=== PATIENT | female | born 1985 | race Two or more races ===

== ENCOUNTER → 2020-02-26 | Emergency (ER) | payer MEDICAID ==
[~2020-02-26] VITALS: Ht 162.6 cm; Wt 72.6 kg
[~2020-02-26] MED LIST: PRENCAP15
[2020-02-26 06:30] LABS: Basophils # (auto) 0 10 ^3/uL (0-0.2); Eosinophils # (auto) 0 10 ^3/uL (0-0.8); Hemoglobin 10.4 g/dL (12.2-16.2); Lymphocytes # (auto) 2.1 10 ^3/uL (0.4-5.4); Nucleated Red Blood Cells % 0.1 %; White Blood Cell 5.9 10^3/uL (4.4-10.8)
[2020-02-26 06:32] LABS: Basophils % (auto) 0.5 % (0.0-2.0); Eosinophils % (auto) 0.4 % (0.0-7.0); Hematocrit 32.9 % (36.0-46.0); Mean Corpuscular Hemoglobin 22.4 pg (28.0-32.0); Mean Corpuscular Hgb Conc. 31.7 g/dL (32.0-36.0); Mean Corpuscular Volume 70.8 fL (80.0-100.0); Monocytes # (auto) 0.3 10 ^3/uL (0-1.3); Monocytes % (auto) 5.9 % (0.0-12.0); Neutrophils # (auto) 3.4 10 ^3/uL (1.6-8.6); Neutrophils % (auto) 57.2 % (37.0-80.0); Platelet Count (auto) 241 10^3/uL (140-450); Red Blood Cells 4.64 10^6/uL (4.0-5.20); Red Cell Distribution Width 18.2 % (11.8-14.3)
[2020-02-26 06:47] LABS: Alanine Aminotransferase 13 U/L (13-56); Albumin 3.4 g/dL (3.4-5.0); Anion Gap 6 (5-15); Blood Urea Nitrogen 8 mg/dL (7-18); Calcium 8.5 mg/dL (8.5-10.1); Carbon Dioxide 23 mmol/L (21-32); Chloride 108 mmol/L (98-107); Glucose 106 mg/dL (74-106); Potassium 3.6 mmol/L (3.5-5.1); Sodium 137 mmol/L (136-145)
[2020-02-26 06:52] LABS: Alkaline Phosphatase 62 U/L (45-117); Aspartate Aminotransferase 8 U/L (15-37); Bilirubin, Total 0.3 mg/dL (0.2-1.0); GFR African American 116 mL/min; GFR Non-African American 96 mL/min; Total Protein 8.1 g/dL (6.4-8.2)
[2020-02-26 06:57] LABS: INR 1.02 (0.9-1.15); Partial Thromboplastin Time 27.5 sec (23.64-32.05)
[2020-02-26 10:55] VITALS: BP 127/66
== END | disposition home or self-care (01) ==
LOC: ER 05:45
DX: O26.891 Other specified pregnancy related conditions, first trimester (principal); R07.89 Other chest pain; K29.70 Gastritis, unspecified, without bleeding; Z3A.01 Less than 8 weeks gestation of pregnancy; Z87.442 Personal history of urinary calculi
CPT/HCPCS: 36415; 71045; 76801; 76817; 80053; 81025; 83880; 84484; 84702; 85025; 85610; 85730; 93005

== ENCOUNTER 2021-09-22 01:45 | Emergency (ER) | payer MEDICAID ==
[~2021-09-22] VITALS: Ht 167.6 cm; Wt 69.9 kg
[2021-09-22 01:48] VITALS: BP 164/90
== END 2021-09-22 03:31 | disposition left against medical advice (07) ==
LOC: ER 01:45 → EDBD 01:45 → ER 03:31
DX: M54.50 Low back pain, unspecified (principal); Z53.21 Procedure and treatment not carried out due to patient leaving prior to being seen by health care provider

== ENCOUNTER → 2022-10-02 | Emergency (ER) | payer MEDICAID ==
[~2022-10-02] VITALS: Ht 165.1 cm; Wt 68.0 kg
[~2022-10-02] MED LIST changes: +ACE3T PO; +CYCL-837 PO; +KETOROLAC TROMETH 60MG/2ML VIAL IM ONE; +METHOCARBAMOL 500 MG TAB PO ONE
[2022-10-02 01:33] VITALS: BP 149/77
== END | disposition home or self-care (01) ==
LOC: EDUNIT# 00:50 → EDBD 01:02 → ER 01:05
DX: M54.42 Lumbago with sciatica, left side (principal); M54.41 Lumbago with sciatica, right side; I10 Essential (primary) hypertension; Z87.442 Personal history of urinary calculi
CPT/HCPCS: 96372; 99283; J1885

== ENCOUNTER 2025-05-07 06:42 | Emergency (ER) | payer MEDICAID ==
[~2025-05-07] VITALS: Ht 160 cm; Wt 63.0 kg
[~2025-05-07 06:42] MED LIST changes: -KETOROLAC TROMETH 60MG/2ML VIAL IM ONE; -METHOCARBAMOL 500 MG TAB PO ONE
--- NOTE | 2025-05-07 06:59 | ED.PDOC ---
Musculoskeletal HPI Comments THIS IS A 40 YEAR OLD FEMALE PRESENTING TO THE ED WITH CHIEF COMPLAINT OF ARM INJURY S/P FALL. PATIENT REPORTS THAT SHE HAD ACCIDENTALLY TRIPPED OVER HER DAUGHTER'S SCOOTER LAST NIGHT, CAUSING HER TO FALL ONTO HER LEFT SIDE. PATIENT RELAYS THAT SHE HAS NOW BEEN EXPERIENCING LEFT SHOULDER AND ARM PAIN WITH ASSOCIATED SWELLING AND BRUISING. PATIENT STATES THAT SHE IS UNABLE TO MOVE HER ARM DUE TO THE PAIN. PATIENT DENIES ANY NUMBNESS, WEAKNESS, TINGLING, HEAD INJURY, OR BACK INJURY. Time Seen by MD: 06:56 Primary Care Provider: MICHEAL Bejarano Notes: Nurses Notes, Medications, Allergies Allergies: Coded Allergies: NO KNOWN ALLERGIES (Unverified , 07/10/10) Home Meds Active Scripts Hydrocodone-Acetaminophen (Hydrocodone Bitartrate/AC 5-325 mg) 1 Tab Tab, 1 TAB PO TID, #12 TAB Prov:UNA MARTE 05/07/25 Cyclobenzaprine Hcl (Cyclobenzaprine Hcl) 5 Mg Tab, 1 TAB PO QPM PRN, #14 TAB 0 Refills Prov:DARRYL RICO 10/02/22 Acetaminophen W/ Codeine (Tylenol W/Cod #3) 1 Tab Tb, 1 TAB PO QIDP, #10 TAB 0 Refills Prov:DARRYL RICO 10/02/22 Reported Medications Multivit-Min W/Fe-Fa (Mynatal) Cap 07/10/10 Information Source: Patient Mode of Arrival: Ambulatory Location: Left Extremity Location: Arm, Shoulder Timing: Days Prehospital treatment: None Severity: Severe Able to Move Extremity: No Bear Weight: Limited Pain: Moderate Mechanism: Blunt Trauma Circumstances: Fall Onset of Symptoms: After Trauma Symptoms: Swelling, Pain DVT Risk Factors: NONE Last Tetanus: UTD Associated signs and symptoms: Shoulder pain, Arm pain Past Medical History PAST MEDICAL HISTORY: Anxiety, Kidney Stones, UTI'S Surgical History (Other): RIGHT HIP REPLACEMENT 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: No 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 Family History Family History: Unknown Social History Smoker: Non-Smoker Alcohol: Rarely Drugs: Denies Drug Use Lives In: Home Constitutional: reports: others (ANXIOUS ); denies: chills, diaphoresis, fatigue, fever, malaise, sweats, weakness EENTM: denies: blurred vision, double vision, ear bleeding, ear discharge, ear drainage, ear pain, ear ringing, eye pain, eye redness, hearing loss, mouth pain, mouth swelling, nasal discharge, nose bleeding, nose congestion, nose pain, photophobia, tearing, throat pain, throat swelling, voice changes, others Respiratory: denies: cough, hemoptysis, orthopnea, SOB at rest, shortness of breath, SOB with excertion, stridor, wheezing, others Cardiovascular: denies: chest pain, dizzy spells, diaphoresis, Dyspnea on exertion, edema, irregular heart beat, left arm pain, lightheadedness, palpitations, PND, syncope, others Gastrointestinal: denies: abdomen distended, abdominal pain, blood streaked bowels, constipated, diarrhea, dysphagia, difficulty swallowing, hematemesis, melena, nausea, poor appetite, poor fluid intake, rectal bleeding, rectal pain, vomiting, others Genitourinary: denies: abnormal vagina bleeding, burning, dyspareunia, dysuria, flank pain, frequency, hematuria, incontinence, pain, , vagina d ischarge, urgency, others Neurological: denies: dizziness, fainting, headache, left sided numbness, left sided weakness, numbness, paresthesia, pre-existing deficit, right sided numbness, right sided weakness, seizure, speech problems, tingling, tremors, weakness, others Musculoskeletal: reports: joint pain, joint swelling, others (LEFT SHOULDER AND UPPER ARM PAIN); denies: back pain, gout, muscle pain, muscle stiffness, neck pain Integumetry: denies: bruises, change in color, change in hair/nails, dryness, laceration, lesions, lumps, rash, wounds, others Allergic/Immunocompromised: denies: Difficulty Healing, Frequent Infections, Hives, Itching, others Hematologic/Lymphatic: denies: anemia, blood clots, easy bleeding, easy bruising, swollen glands, others Endocrine: denies: excessive hunger, excessive sweating, excessive thirst, excessive urination, flushing, intolerance to cold, intolerance to heat, unexplained weight gain, unexplained weight loss, others Psychiatric: denies: anxiety, bipolar disorder, depression, hopeless, panic disorder, schizophrenia, sleepless, suicidal, others All Other Systems: Reviewed and Negative Physical Exam General Appearance: Mild Distress, Other (ANXIOUS ) HEENT: Normal ENT Inspection, PERRL/EOMI, Pharynx Normal, TMs Normal Neck: Full Range of Motion, Non-Tender, Normal, Normal Inspection Respiratory: Chest Non-Tender, Lungs Clear, No Accessory Muscle Use, No Respiratory Distress, Normal Breath Sounds Cardiovascular: No Edema, No JVD, No Murmur, No Gallop, Normal Peripheral Pulses, Regular Rate/Rhythm Breast Exam: Deferred Gastrointestinal: No Organomegaly, Non Tender, No Pulsatile Mass, Normal Bowel Sounds, Soft Genitalia: Deferred Pelvic: Deferred Rectal: Deferred Extremities: Decreased range of motion, No pedal edema, Swelling (BONY TENDERNESS AND SWELLING ON LEFT UPPER ARM, NO DEFORMITY AND OPEN WOUND. ), Tender (ON LEFT ELBOW, NO BONY TENDERNESS, SWELLING AND DEFORMITY. ) Neurologic: Alert, juice standardizer II-XII nml as Tested, No Motor Deficits, Normal Affect, Normal Mood, No Sensory Deficits Cerebellar Function: Normal Reflexes: Normal Skin: Dry, Normal Color, Warm Peripheral Pulses: 2+ carotid (R), 2+ carotid (L), 2+ Radial (R), 2+ Radial (L) Lymphatic: No Adenopathy Was a procedure done? Was a procedure done?: Yes Sedation Sedation?: No Reduction Indication: Fracture Informed consent obtained: Yes Risks/benefits/alt described: Yes Notes SPLINT APPLIED TO LEFT HUMERAL HEAD. PATIENT TOLERATED PROCEDURE WELL. Differential Diagnosis EXT Differential Diagnosis: Fracture, Sprain, Dislocation, Contusion, Strain X-Ray, Labs, Meds, VS Vital Signs Date Time Temp Pulse Resp B/P (MAP) Pulse Ox O2 Delivery O2 Flow Rate FiO2 05/07/25 07:38 71 19 96 Room Air* 0 21 05/07/25 07:21 98.4 81 18 125/92 (103) 99 98.4 05/07/25 07:21 81 18 97 Room Air 05/07/25 06:42 97.8 79 16 112/77 (89) 100 97.8 Current Medications Medications (Trade) Dose Ordered Sig/Ese Route Start Time Stop Time Status Last Admin Acetaminophen/ Hydrocodone Bitart (Jordan 5/325MG Tab) 1 tab ONCE ONCE PO 05/07/25 07:00 05/07/25 07:01 DC 05/07/25 07:[address] [address] Ph: [phone] DIAGNOSTIC IMAGING Diagnostic Imaging Report : [id number] Signed PATIENT: VOLODYMYR HAILE ACCT: [id number] UNIT: [id number] : 1985 LOC: ER ROOM / BED: / AGE / SEX: 40 / F ADM STATUS: REG ER SERVICE ORDERING PHYSICIAN: UNA MARTE PROCEDURE(s): LSHD2 - L SHOULDER 2+ VIEW XRAY REASON: fall ORDER NUMBER(s): [id number], ACCESSION NUMBER(s): [id number] EXAM: XY L SHOULDER 2+ VIEW XRAY HISTORY: fall COMPARISON: None TECHNIQUE: 2 views of the left shoulder were performed. FINDINGS: Comminuted humeral fracture. No dislocation. Soft tissue swelling shoulder. IMPRESSION: 1. Comminuted humeral fracture. Soft tissue swelling in the shoulder. ATED BY: FLAQUITA GREY MD DICTATED DATE/TIME: 05/07/25733 SIGNED BY: FLAQUITA GREY MD SIGNED DATE/TIME: 05/07/25733 CC: X-Ray, Labs, Meds, VS Comment EXTERNAL MEDICAL RECORDS REVIEWED: [NONE] INDEPENDENT HISTORIANS: [NONE] SOCIAL DETERMINANTS OF HEALTH: [NONE] LABS ORDERED: NONE REVIEWED AND INTERPRETED RESULTS: LEFT SHOULDER XR, LEFT ELBOW XR IMAGING ORDERED: LEFT SHOULDER XR, LEFT ELBOW XR TREATMENTS ORDERED: NORCO 5/325MG PO AND SPLINT APPLIED TO LEFT UPPER EXTREMITY. PROCEDURES PERFORMED: NONE CRITICAL CARE TIME: NONE I HAVE DISCUSSED THE PATIENT WITH THE ATTENDING PHYSICIAN DR. MEDINA AND HE AGREES WITH THE PATIENT'S PLAN OF CARE AND DISPOSITION. BASED ON HISTORY OF PRESENT ILLNESS, AND PHYSICAL EXAM, PATIENT WILL BE DISCHARGED HOME. DISCUSSED PLAN FOR DISCHARGE HOME WITH RX NORCO. MEDICATION WARNINGS GIVEN. SHARED DECISION MAKING: DISCUSSED WITH PATIENT THAT THEIR WORKUP WAS NORMAL. PATIENT INSTRUCTED TO FOLLOW UP WITH PRIMARY CARE PROVIDER/ORTHOPEDIST IN 1-2 DAYS FOR RE-EVALUATION OF SYMPTOMS. PATIENT VERBALIZES UNDERSTANDING TO RETURN TO ED FOR NEW OR WORSENING SYMPTOMS OR IF FOLLOW UP WITH PCP CANNOT BE OBTAINED. PATIENT FEELS COMFORTABLE GOING HOME AT THIS TIME. ALL QUESTIONS ADDRESSED AT TIME OF DISCHARGE. Images Reviewed?: Images reviewed and evaluated by me Time of 1ST Reevaluation: 07:42 Reevaluation 1ST: Improved Patient Education/Counseling: Diagnosis, Treatment, Need For Follow Up Family Education/Counseling: Diagnosis, Treatment, Need For Follow Up, No Family Present Medical Screening: No EMC Exist At This Time Departure 1 Departure Time of Disposition: 08:00 Impression: Primary Impression: Comminuted fracture of left humerus Qualified Codes: S42.355A - Nondisplaced comminuted fracture of shaft of humerus, left arm, initial encounter for closed fracture Disposition: HOME / SELF CARE / HOMELESS Condition: Stable Additional Instructions: FOLLOW-UP WITH PCP IN 1 TO 2 DAYS. TAKE MEDICATIONS PRESCRIBED. RETURN TO ED FOR ANY NEW OR WORSENING SYMPTOMS. e-Prescriptions Hydrocodone-Acetaminophen (Hydrocodone Bitartrate/AC 5-325 mg) 1 Tab Tab 1 TAB PO TID, #12 TAB Prov: UNA MARTE 05/07/25 Discharged With: Self, Spouse Critical Care Note Critical Care Time?: No Stability Stability form required: No Heart Score Heart Score: Heart Score Response (Comments) Value History N/A 0 EKG N/A 0 Age N/A 0 Risk Factors N/A 0 Troponin N/A 0 Total 0 I personally scribed for UNA MARTE ([email or web address]) on 05/07/25 at 06:59. Electronically submitted by Juan Knox ([email or web address]). I personally scribed for UNA MARTE ([email or web address]) on 05/07/25 at 07:15. Electronically submitted by Juan Knox ([email or web address]). I personally scribed for UNA MARTE ([email or web address]) on 05/07/25 at 07:36. Electronically submitted by Juan Knox ([email or web address]). I personally scribed for UNA MARTE ([email or web address]) on 05/07/25 at 07:39. Electronically submitted by Juan Knox ([email or web address]). I personally scribed for UNA MARTE ([email or web address]) on 05/07/25 at 07:41. Electronically submitted by Juan Knox ([email or web address]). UNA MARTE May 07, 2025 06:59
[2025-05-07] MEDS: HYDROcodone-ACET 5/325MG TAB PO ONE (07:11)
[2025-05-07 07:21] VITALS: BP 125/92; TEMP 98.4
--- NOTE | 2025-05-07 07:36 | DVH ---
EXAM: XY L SHOULDER 2+ VIEW XRAY HISTORY: fall COMPARISON: None TECHNIQUE: 2 views of the left shoulder were performed. FINDINGS: Comminuted humeral fracture. No dislocation. Soft tissue swelling shoulder. IMPRESSION: 1. Comminuted humeral fracture. Soft tissue swelling in the shoulder.
[2025-05-07 07:38] VITALS: PULSE 71; RESP 19; O2SAT 96
[2025-05-07] MEDS ORDERED: HYDR-4902 PO (07:39)
--- NOTE | 2025-05-07 07:41 | DVH ---
CLINICAL INDICATION: fall trauma, pain TECHNIQUE: XY L ELBOW 3 VIEW XRAY Comparison: None FINDINGS/IMPRESSION: : There is no evidence of acute fracture or dislocation. Small joint effusion. Examination is slightly limited secondary to suboptimal lateral view.
== END 2025-05-07 07:47 | disposition home or self-care (01) ==
LOC: ER 06:44
DX: S42.352A Displaced comminuted fracture of shaft of humerus, left arm, initial encounter for closed fracture (principal); F41.9 Anxiety disorder, unspecified; F10.90 Alcohol use, unspecified, uncomplicated; Z87.442 Personal history of urinary calculi; Z79.899 Other long term (current) drug therapy; Z87.440 Personal history of urinary (tract) infections; W01.0XXA Fall on same level from slipping, tripping and stumbling without subsequent striking against object, initial encounter; Y93.89 Activity, other specified; Y92.89 Other specified places as the place of occurrence of the external cause; Y99.8 Other external cause status; Y90.9 Presence of alcohol in blood, level not specified
CPT/HCPCS: 29105; 73030; 73080

== ENCOUNTER 2025-05-15 07:02 | Emergency (ER) | payer MEDICAID ==
[~2025-05-15] VITALS: Ht 160 cm; Wt 59.0 kg
[~2025-05-15 07:02] MED LIST changes: +HYDR-4902 PO
[2025-05-15] MEDS ORDERED: HYDR-4798 PO (07:25)
[2025-05-15] MEDS ORDERED: IBUP-1456 PO (07:25)
--- NOTE | 2025-05-15 07:25 | ED.PDOC ---
History of Present Illness HPI Comments A 40 YEAR OLD FEMALE PRESENTS TO THE ED WITH COMPLAINT OF LEFT SHOULDER PAIN AND REQUEST FOR PAIN MANAGEMENT. PATIENT STATES SHE FELL 1 WEEK AGO AND CAME TO THIS ED FOR THE INJURY WHERE AN X RAY WAS DONE WHICH REVEALED A COMMINUTED FRACTURE OF HER LEFT HUMERUS. PATIENT REPORTS SHE WAS PRESCRIBED NORCO 5/325MG, BUT NOTES THIS HAS NOT HELPED HER PAIN. PATIENT IS REQUESTING A NEW PAIN MEDICINE TO MANAGE HER PAIN. PATIENT DENIES FEVER, CHILLS, SHORTNESS OF BREATH, CHEST PAIN, ABDOMINAL PAIN, NAUSEA, VOMITING, HEADACHE, OR OTHER COMPLAINTS. NO OTHER SYMPTOMS OR MODIFYING FACTORS AT THIS TIME. PATIENT IS ALERT, ORIENTED X 4, AND HAS STEADY GAIT. Time Seen by MD: 07:04 Primary Care Provider: MICHEAL Bejarano Notes: Nurses Notes, Medications, Allergies Allergies: Coded Allergies: NO KNOWN ALLERGIES (Unverified , 07/10/10) Home Meds Active Scripts Hydrocodone-Acetaminophen (Hydrocodone Bitartrate/AC 10-325 mg) 1 Tab Tab, 1 TAB PO BID, #10 TAB Prov:UNA MARTE 05/15/25 Ibuprofen (Ibuprofen) 800 Mg Tab, 1 TAB PO TID, #20 TAB Prov:UNA MARTE 05/15/25 Hydrocodone-Acetaminophen (Hydrocodone Bitartrate/AC 5-325 mg) 1 Tab Tab, 1 TAB PO TID, #12 TAB Prov:UNA MARTE 05/07/25 Cyclobenzaprine Hcl (Cyclobenzaprine Hcl) 5 Mg Tab, 1 TAB PO QPM PRN, #14 TAB 0 Refills Prov:DARRYL RICO 10/02/22 Acetaminophen W/ Codeine (Tylenol W/Cod #3) 1 Tab Tb, 1 TAB PO QIDP, #10 TAB 0 Refills Prov:DARRYL RICO 10/02/22 Reported Medications Multivit-Min W/Fe-Fa (Mynatal) Cap 07/10/10 Information Source: Patient Mode of Arrival: Ambulatory Severity: Moderate Timing: Days Duration: Since onset, Other Prehospital treatment: None Medication Refill: For: Pain (LEFT SHOULDER ), For: Other (LEFT SHOULDER AND UPPER ARM PAIN) Past Medical History PAST MEDICAL HISTORY: Anxiety, Kidney Stones, UTI'S Surgical History: Denies all surgeries CUSTOMER CARE AGENT History: No Pertinent CUSTOMER CARE AGENT History Family History Family History: Reviewed,noncontributory to illness Social History Smoker: Non-Smoker Alcohol: Rarely Drugs: Denies Drug Use Lives In: Home Constitutional: denies: chills, diaphoresis, fatigue, fever, malaise, sweats, weakness, others EENTM: denies: blurred vision, double vision, ear bleeding, ear discharge, ear drainage, ear pain, ear ringing, eye pain, eye redness, hearing loss, mouth pain, mouth swelling, nasal discharge, nose bleeding, nose congestion, nose pain, photophobia, tearing, throat pain, throat swelling, voice changes, others Respiratory: denies: cough, hemoptysis, orthopnea, SOB at rest, shortness of breath, SOB with excertion, stridor, wheezing, others Cardiovascular: denies: chest pain, dizzy spells, diaphoresis, Dyspnea on exertion, edema, irregular heart beat, left arm pain, lightheadedness, palpitations, PND, syncope, others Gastrointestinal: denies: abdomen distended, abdominal pain, blood streaked bowels, constipated, diarrhea, dysphagia, difficulty swallowing, hematemesis, melena, nausea, poor appetite, poor fluid intake, rectal bleeding, rectal pain, vomiting, others Genitourinary: denies: abnormal vagina bleeding, burning, dyspareunia, dysuria, flank pain, frequency, hematuria, incontinence, pain, , vagina d ischarge, urgency, others Neurological: denies: dizziness, fainting, headache, left sided numbness, left sided weakness, numbness, paresthesia, pre-existing deficit, right sided numbness, right sided weakness, seizure, speech problems, tingling, tremors, weakness, others Musculoskeletal: reports: joint pain, joint swelling, others (LEFT SHOULDER AND UPPER ARM PAIN); denies: back pain, gout, muscle pain, muscle stiffness, neck pain Integumetry: denies: bruises, change in color, change in hair/nails, dryness, laceration, lesions, lumps, rash, wounds, others Allergic/Immunocompromised: denies: Difficulty Healing, Frequent Infections, Hives, Itching, others Hematologic/Lymphatic: denies: anemia, blood clots, easy bleeding, easy bruising, swollen glands, others Endocrine: denies: excessive hunger, excessive sweating, excessive thirst, excessive urination, flushing, intolerance to cold, intolerance to heat, unexplained weight gain, unexplained weight loss, others Psychiatric: denies: anxiety, bipolar disorder, depression, hopeless, panic disorder, schizophrenia, sleepless, suicidal, others All Other Systems: Reviewed and Negative Physical Exam General Appearance: No Apparent Distress, Normal HEENT: Normal ENT Inspection, PERRL/EOMI, Pharynx Normal, TMs Normal Neck: Full Range of Motion, Non-Tender, Normal, Normal Inspection Respiratory: Chest Non-Tender, Lungs Clear, No Accessory Muscle Use, No Respiratory Distress, Normal Breath Sounds Cardiovascular: No Edema, No JVD, No Murmur, No Gallop, Normal Peripheral Pulses, Regular Rate/Rhythm Breast Exam: Deferred Gastrointestinal: No Organomegaly, Non Tender, No Pulsatile Mass, Normal Bowel Sounds, Soft Genitalia: Deferred Pelvic: Deferred Rectal: Deferred Extremities: Decreased range of motion, No calf tenderness, Normal capillary refill, No pedal edema, Tender (AND MILD SWELLING ON LEFT SHOULDER, NO DEFORMITY. ) Musculoskeletal : Apperance: Normal Neurologic: Alert, flatlock sewing machine operator II-XII nml as Tested, No Motor Deficits, Normal Affect, Normal Mood, No Sensory Deficits Cerebellar Function: Normal Reflexes: Normal Skin: Dry, Normal Color, Warm Peripheral Pulses: 2+ carotid (R), 2+ carotid (L), 2+ Radial (R), 2+ Radial (L) Lymphatic: No Adenopathy Was a procedure done? Was a procedure done?: No Differential Dx Considerations may include: HISTORY OF COMMINUTED FRACTURE OF LEFT HUMERUS, PAIN MANAGEMENT X-Ray, Labs, Meds, VS Comment EXTERNAL MEDICAL RECORDS REVIEWED: [NONE] INDEPENDENT HISTORIANS: [NONE] SOCIAL DETERMINANTS OF HEALTH: [NONE] LABS ORDERED: NONE REVIEWED AND INTERPRETED RESULTS: NONE IMAGING ORDERED: NONE TREATMENTS ORDERED: NONE PROCEDURES PERFORMED: NONE CRITICAL CARE TIME: NONE I HAVE DISCUSSED THE PATIENT WITH THE ATTENDING PHYSICIAN DR. ISAACS AND HE AGREES WITH THE PATIENT'S PLAN OF CARE AND DISPOSITION. BASED ON HISTORY OF PRESENT ILLNESS, AND PHYSICAL EXAM, PATIENT WILL BE DISCHARGED HOME. DISCUSSED PLAN FOR DISCHARGE HOME WITH RX [NORCO 10/325 MG AND IBUPROFEN 800 MG]. MEDICATION WARNINGS GIVEN. SHARED DECISION MAKING: PATIENT INSTRUCTED TO FOLLOW UP WITH PRIMARY CARE PROVIDER IN 1-2 DAYS FOR RE-EVALUATION OF SYMPTOMS. PATIENT VERBALIZES UNDERSTANDING TO RETURN TO ED FOR NEW OR WORSENING SYMPTOMS OR IF FOLLOW UP WITH PCP CANNOT BE OBTAINED. PATIENT FEELS COMFORTABLE GOING HOME AT THIS TIME. ALL QUESTIONS ADDRESSED AT TIME OF DISCHARGE. Time of 1ST Reevaluation: 08:00 Reevaluation 1ST: Improved Patient Education/Counseling: Diagnosis, Treatment, Need For Follow Up Family Education/Counseling: Diagnosis, Treatment, Need For Follow Up Medical Screening: No EMC Exist At This Time Departure 1 Departure Time of Disposition: 08:00 Impression: Primary Impression: Comminuted fracture of left humerus Qualified Codes: S42.355A - Nondisplaced comminuted fracture of shaft of humerus, left arm, initial encounter for closed fracture Additional Impression: Pain management Disposition: 01 HOME / SELF CARE / HOMELESS Condition: Stable Additional Instructions: FOLLOW-UP WITH PCP IN 1 TO 2 DAYS FOR REFERRAL TO [facility]. TAKE MEDICATIONS PRESCRIBED. RETURN TO ED FOR ANY NEW OR WORSENING SYMPTOMS. e-Prescriptions Hydrocodone-Acetaminophen (Hydrocodone Bitartrate/AC 10-325 mg) 1 Tab Tab 1 TAB PO BID, #10 TAB Prov: UNA MARTE 05/15/25 Ibuprofen (Ibuprofen) 800 Mg Tab 1 TAB PO TID, #20 TAB Prov: UNA MARTE 05/15/25 Discharged With: Self Critical Care Note Critical Care Time?: No Stability Stability form required: No I personally scribed for UNA MARTE ([email or web address]) on 05/15/25 at 07:25. Elec tronically submitted by Pierre Matos ([email or web address]). UNA MARTE May 15, 2025 07:25
[2025-05-15 07:40] VITALS: BP 113/62; PULSE 69; RESP 16; TEMP 98.2; O2SAT 97
== END 2025-05-15 08:02 | disposition home or self-care (01) ==
LOC: ER 07:02
DX: S42.355D Nondisplaced comminuted fracture of shaft of humerus, left arm, subsequent encounter for fracture with routine healing (principal); Z01.89 Encounter for other specified special examinations; Z79.899 Other long term (current) drug therapy; W19.XXXD Unspecified fall, subsequent encounter

== ENCOUNTER 2025-09-04 01:11 | Inpatient (IN) | payer MEDICAID ==
[~2025-09-04] VITALS: Ht 160 cm; Wt 63.9 kg
[2025-09-04] VITALS (80 sets, daily range): BP systolic 51–135; BP diastolic 22–75; PULSE 75–117; RESP 18–40; TEMP 97–100.4; O2SAT 95–100
[~2025-09-04 01:11] MED LIST changes: +HYDR-4798 PO; +IBUP-1456 PO
[2025-09-04] MEDS: NOREPINEPHRINE 8 MG/250ML KIT 250 ML IV SCH (01:23)
--- NOTE | 2025-09-04 01:28 | ECG ---
[facility] Test Date: 2025-09-04 Test Time: 01:21:15 Pat Name: VOLODYMYR HAILE Department: ED Room: [address] [place] [address] Gender: F Test Data Developer: ritesh : 1985 Requested By: CATHIE ROGERS Order Number: [id number] Reading MD: Bradford Baldwin Measurements Intervals [place] Rate: 91 P: 105 WA: 121 QRS: 72 QRSD: 85 T: 66 QT: 347 QTc: 427 Interpretive Statements Sinus rhythm Abnormal R-wave progression, early transition Tall T waves suggest hyperkalemia Electronically Signed On 09-04-2025 15:47:15 PST by Bradford Baldwin Please click the below link to view image of tracing.
--- NOTE | 2025-09-04 01:29 | ED.PDOC ---
History of Present Illness HPI Comments 40-year-old female who came to ER via EMS in cardiac arrest. Per EMS, received a phone call for witnessed cardiac arrest at 1238 hours. They were on scene within 5 minutes, patient was asystole, CPR initiated by family. Family states patient was anxious but was not having any complaints like chest pain or issa rtness of breath. CPR continued. Fluids given. Epinephrine x2 given. Patient became VFib, so patient was shocked once at 100 joules, Narcan given, patient became asystole again upon arrival at ER at 0108 hours. Blood sugar upon arrival was 43. ROSC obtained at 0112 hours Further history taken from family members who arrived to the emergency department. They report that for the past 5 years patient has been severely depressed. For the past month she has been staying in bed. Decreased p.o. intake. She had a fall back in April resulting in arm and hip fracture. They deny any other significant past medical history. REVIEW OF SYSTEMS: Patient unresponsive Initial EXAM: General: Patient is unresponsive. Skin: Skin is cool, pale HEENT: The head is normocephalic and atraumatic. Conjunctivae are clear without exudates or hemorrhage. Sclera is non-icteric. Pupils are fixed and dilated. Neck: The neck is supple Cardiac: No pulse palpated Respiratory: No spontaneous respiration Abdominal: Abdomen is firm, Band-Aid in place over the umbilicus, surgical scar noted over the lower abdomen and umbilicus, patient is wearing adult diaper Extremities: Upper and lower extremities are atraumatic in appearance without deformity or edema. Neurological: No Spontaneous movement. No response to pain. GCS 3. 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 Allergies: Coded Allergies: NO KNOWN ALLERGIES (Unverified , 07/10/10) Home Meds Active Scripts Hydrocodone-Acetaminophen (Hydrocodone Bitartrate/AC 10-325 mg) 1 Tab Tab, 1 TAB PO BID, #10 TAB Prov:UNA MARTE 05/15/25 Ibuprofen (Ibuprofen) 800 Mg Tab, 1 TAB PO TID, #20 TAB Prov:UNA MARTE 25 Hydrocodone-Acetaminophen (Hydrocodone Bitartrate/AC 5-325 mg) 1 Tab Tab, 1 TAB PO TID, #12 TAB Prov:UNA MARTE 05/07/25 Cyclobenzaprine Hcl (Cyclobenzaprine Hcl) 5 Mg Tab, 1 TAB PO QPM PRN, #14 TAB 0 Refills Prov:DARRYL RICO 10/02/22 Acetaminophen W/ Codeine (Tylenol W/Cod #3) 1 Tab Tb, 1 TAB PO QIDP, #10 TAB 0 Refills Prov:DARRYL RICO 10/02/22 Reported Medications Multivit-Min W/Fe-Fa (Mynatal) Cap 07/10/10 Information Source: Emergency Med Personnel Mode of Arrival: EMS Severity: Severe Timing: Minutes Past Medical History PAST MEDICAL HISTORY: Anxiety, Kidney Stones, UTI'S Surgical History: Unobtainable 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 Indication: Volume resuscitation, Inability to obtain IV Room prepared for procedure: Yes Retort Furnace Operator performed hand hygien: Yes Maximal sterile barrier precau: Mask/Eye shield, Sterile gown, Cap, Sterlie gloves, Large sterlie drape Skin Preparation: Providine iodine Skin preparation completely dr: Yes Insertion site: Left, Femoral Central line catheter type: Tunneled- not dialysis Number of lumens: 3 Central line exchanged over a: Yes Antiseptic ointment applied to: Yes Post Assessment: Chest X-Ray Informed consent obtained: No Risks/benefits/alt described: No Intubation Indication: Respiratory Insufficiency, Altered Mental Status Prep: Preoxygenation Pretreated with: Nothing Medicated with: Nothing Intubation Approach: Orotracheal Intubation size: cm (8 level 24 at the lip) Informed consent obtained: Yes Risks/benefits/alt described: Yes Differential Dx Considerations may include: Cardiac arrest, pulmonary emboli, arrhythmia, hypotension, hypoglycemia, myocardial infarction, intracranial hemorrhage, stroke, head injury, seizure, metabolic disturbance, electrolyte imbalance, infection/sepsis, substance intoxication, psychiatric cause, other systemic illness, other X-Ray, Labs, Meds, VS Vital Signs Date Time Temp Pulse Resp B/P (MAP) Pulse Ox O2 Delivery O2 Flow Rate FiO2 09/04/25 04:37 105 21 107/30 (55) 100 50 09/04/25 04:31 75 21 51/22 97 50.0 100 09/04/25 04:28 203.0 Ambu-Bag 09/04/25 04:05 103 09/04/25 02:40 94.2 94.2 09/04/25 02:11 87 09/04/25 01:23 74/19 09/04/25 01:21 91 09/04/25 01:10 75 21 97 100 Lab Test 09/04/25 04:43 09/04/25 03:40 09/04/25 03:39 09/04/25 03:14 Range/Units Troponin I High Sensitivity 8221 *H </=34 ng/L Blood Gas Specimen Type Arterial Blood Gas Sample Site Left brachial Blood Gas Patient Temperature 37.0 Arterial Blood Date Drawn [id number] Arterial Blood pH 7.347 L 7.350-7.450 Arterial Blood Partial Pressure CO2 33.8 32.0-45.0 mmHg Arterial Blood Partial Pressure O2 339.2 *H 83.0-108.0 mmHg Arterial Blood HCO3 18.1 L 21.0-28.0 mmol/L Arterial Blood Oxygen Saturation 99.3 H 94.0-98.0 % Arterial Blood Base Excess -6.8 L -2.0-3.0 mmol/L Arterial Blood Oxyhemoglobin 97.9 94.0-98.0 % Arterial Blood Carboxyhemoglobin 0.5 0.5-1.5 % Arterial Blood Methemoglobin 0.9 0.0-1.5 % Fernando Test Modified Blood Gas Total Hemoglobin 8.10 L 12.0-16.0 g/dL Blood Gas Set Respiration Rate 18.0 Blood Gas Modality Vent - ac FiO2 % 100.0 Blood Gas Tidal Volume 450.0 Blood Gas PEEP or CPAP 5.0 Blood Gas Critical Value Read Back Yes Blood Gas Notified Whom giovanny Flores Blood Gas Notified Time [id number] Blood Gas Notified By Rt rafia rojas Lactic Acid Level 15.2 *H 0.4-2.0 mmol/L Urine Color Light-orange Yellow Urine Clarity Turbid H Clear Urine pH 5.5 5.0-9.0 Urine Specific [place] 1.015 1.001-1.035 Urine Protein 2+ H Negative Urine Ketones 1+ H Negative Urine Blood 3+ H Negative /uL Urine Nitrite Negative Negative Urine Bilirubin Negative Negative Urine Urobilinogen Normal Negative mg/dL Urine Leukocyte Esterase Negative Negative /uL Urine RBC 281 0 - 4 /hpf Urine Microscopic WBC 37 H 0-5 /HPF Urine Squamous Epithelial Cells Few <5 /hpf Urine Calcium Oxalate Crystals Few None Seen Urine Bacteria Few H None Seen /hpf Urine Hyaline Casts Many 0 - 2 /lpf Urine Mucus Few None Seen Urine Glucose Trace Normal mg/dL Urine Opiates Screen Neg NEGATIVE Urine Fentanyl Screen Neg NEGATIVE Urine Barbiturates Screen Neg NEGATIVE Urine Phencyclidine Screen Neg NEGATIVE Urine Amphetamines Screen Neg NEGATIVE Urine Benzodiazepines Screen Neg NEGATIVE Urine Cocaine Screen Neg NEGATIVE Urine Cannabinoids Screen Neg NEGATIVE Test 09/04/25 03:10 09/04/25 02:32 09/04/25 01:49 09/04/25 01:40 Range/Units Influenza Type A Antigen Negative Negative Influenza Type B Antigen Negative Negative SARS-CoV-2 Antigen (Rapid) Negative NEGATIVE Creatine Kinase 458 H 34-145 U/L Troponin I High Sensitivity 5664 *H 2769 *H </=34 ng/L Blood Gas Specimen Type Arterial Blood Gas Sample Site Right radial Blood Gas Patient Temperature 37.0 Arterial Blood Date Drawn [id number] Arterial Blood pH < 6.710 *L 7.350-7.450 Arterial Blood Partial Pressure CO2 38.1 32.0-45.0 mmHg Arterial Blood Partial Pressure O2 95.1 83.0-108.0 mmHg Arterial Blood Oxygen Saturation 84.0 *L 94.0-98.0 % Arterial Blood Oxyhemoglobin 81.2 L 94.0-98.0 % Arterial Blood Carboxyhemoglobin 2.0 H 0.5-1.5 % Arterial Blood Methemoglobin 1.3 0.0-1.5 % Fernando Test Modified Blood Gas Total Hemoglobin 6.50 *L 12.0-16.0 g/dL Blood Gas Set Respiration Rate 18.0 Blood Gas Modality Vent - ac FiO2 % 100.0 Blood Gas Tidal Volume 450.0 Blood Gas PEEP or CPAP 5.0 Blood Gas Comments Blood Gas Critical Value Read Back Yes Blood Gas Notified Whom pradeep Rogers md Blood Gas Notified Time [id number] Blood Gas Notified By White Blood Count 8.8 4.4-10.8 10^3/uL Red Blood Count 3.13 L 4.0-5.20 10^6/uL Hemoglobin 6.4 *L 12.2-16.2 g/dL Hematocrit 25.0 L 36.0-46.0 % Mean Corpuscular Volume 79.8 L 80.0-100.0 fL Mean Corpuscular Hemoglobin 20.4 L 28.0-32.0 pg Mean Corpuscular Hemoglobin Concent 25.5 L 32.0-36.0 g/dL Red Cell Distribution Width 19.3 H 11.8-14.3 % Platelet Count 260 140-450 10^3/uL Mean Platelet Volume 10.8 6.9-10.8 fL Neutrophils (%) (Auto) 73.3 37.0-80.0 % Lymphocytes (%) (Auto) 23.3 10.0-50.0 % Monocytes (%) (Auto) 2.8 0.0-12.0 % Eosinophils (%) (Auto) 0.1 0.0-7.0 % Basophils (%) (Auto) 0.5 0.0-2.0 % Neutrophils # (Auto) 6.4 1.6-8.6 10 ^3/uL Lymphocytes # (Auto) 2.0 0.4-5.4 10 ^3/uL Monocytes # (Auto) 0.2 0-1.3 10 ^3/uL Eosinophils # (Auto) 0 0-0.8 10 ^3/uL Basophils # (Auto) 0 0-0.2 10 ^3/uL Nucleated Red Blood Cells 0.5 % Prothrombin Time 17.4 H 9.3-11.8 sec Prothrombin Time INR 1.73 H 0.9-1.15 Sodium Level 151 H 136-145 mmol/L Potassium Level 6.3 *H 3.5-5.1 mmol/L Chloride Level 113 H 98-107 mmol/L Carbon Dioxide Level < 10 *L 20-31 mmol/L Anion Gap 28.68709 H 5-15 Blood Urea Nitrogen 29 H 9-23 mg/dL Creatinine 2.52 H 0.550-1.02 mg/dL Glomerular Filtration Rate Calc 24 >90 mL/min BUN/Creatinine Ratio 11.5 10.0-20.0 Serum Glucose 146 H 74-106 mg/dL Lactic Acid Level 21.1 *H 0.4-2.0 mmol/L Calcium Level 7.9 L 8.7-10.4 mg/dL Magnesium Level 4.1 *H 1.6-2.6 mg/dL Total Bilirubin < 0.2 L 0.2-1.0 mg/dL Aspartate Amino Transferase (AST) 2482 H 13-40 U/L Alanine Aminotransferase (ALT) 1430 H 7-40 U/L Alkaline Phosphatase 74 46-116 U/L B-Type Natriuretic Peptide 8.48 0-100 pg/mL Total Protein 4.8 L 5.7-8.2 g/dL Albumin 2.7 L 3.2-4.8 g/dL Lipase 31 12-53 U/L Thyroid Stimulating Hormone (TSH) 2.31 0.55-4.78 uIU/mL Plasma/Serum Blood Alcohol < 3.0 <10 mg/dL Current Medications Medications (Trade) Dose Ordered Sig/Ese Route Start Time Stop Time Status Last Admin Norepinephrine Bitartrate 250 ml @ 3.75 mls/hr Q24H IV 09/04/25 02:00 09/04/25 01:23 Sodium Bicarbonate 50 ml ONCE ONCE IV 09/04/25 02:00 09/04/25 02:01 DC 09/04/25 03:40 Albuterol (Ventolin Medneb) 20 mg ONCE ONCE NEB 09/04/25 02:00 09/04/25 02:01 DC 09/04/25 02:17 Sodium Bicarbonate 50 ml ONCE ONCE IV 09/04/25 02:00 09/04/25 02:01 DC 09/04/25 03:40 Sodium Bicarbonate 50 ml/ Dextrose 1,050 ml @ 100 mls/hr ONCE ONCE IV 09/04/25 02:15 09/04/25 12:44 09/04/25 03:41 Insulin Human Regular (InsuLIN R) 10 units ONCE ONCE IV 09/04/25 02:45 09/04/25 02:46 DC 09/04/25 04:35 Diagnostic Test (Pha) (Accu-Chek Comfort Curve T) 1 strip ONCE STAT 09/04/25 02:32 09/04/25 02:33 DC 09/04/25 04:35 EXAM: CT HEAD WITHOUT CONTRAST INDICATION: AMS TECHNIQUE: CT of the head without intravenous contrast. Radiation Dose Information: CT Dose: CTDI volume is 53.16 mGy. Dose-length product is 941.36 mGy*cm The dose indicators for CT are the volume Computed Tomography (CT) Dose Index (CTDIvol) and the Dose Length Product (DLP), and are measured in units of mGy and mGy-cm, respectively. These indicators are not patient dose, but values generated from the CT scanner acquisition factors. The report includes radiation exposure data for exposures received during this examination. COMPARISON: None FINDINGS: There is no evidence of acute intracranial hemorrhage, extra-axial collection, mass effect, midline shift, herniation or hydrocephalus. The ventricles, sulci and cisterns are age appropriate. The lozoya-white differentiation is intact. The visualized paranasal sinuses and mastoid air cells are clear. The surrounding soft tissues and osseous structures are unremarkable. IMPRESSION: 1. No acute intracranial abnormality. Exam: CT CT AB PEL WO CON-NO ORAL OR IV History: Abdomen distended, status post cardiac arrest Comparison Study: None TECHNIQUE: Multidetector CT of the abdomen and pelvis was performed from lung bases to pubic symphysis. Imaging was performed without IV contrast. Axial, cor onal and sagittal multiplanar reformats were obtained from the axial data set by the technologist. Radiation optimization: All CT scans at this facility use at least one of these dose optimization techniques: automated exposure control mA and/or kV adjust ment per patient size (includes targeted exams where dose is matched to clinical indication) or iterative reconstruction. Radiation Dose Information: CT Dose: CTDI volume is 8.19 mGy. Dose-length product is 480.39 mGy*cm FINDINGS: Evaluation of solid organs is limited due to lack of intravenous contrast use. Imaged portions of the lung bases demonstrate atelectatic changes in the left lung base. There is bilateral alveolar opacities in the anterior right and left upper lobes. Respiratory motion otherwise limits assessment. Enteric tube tip is seen within the stomach. Liver, spleen and adrenal glands appear unremarkable. The left kidney appears absent. Few 1 mm nonobstructing right nephroliths are noted. There is no hydronephrosis. Assessment of the pancreas is near impossible given motion. There is no evidence of bowel obstruction. There is a large amount of intracolonic stool. No evidence of free air. Urinary bladder is collapsed and presence of the Sams catheter. The uterus is retroverted. There is a 5.2 cm fat containing umbilical hernia. Right hip prosthesis resulting in beam hardening artifact. No suspicious osseous lesion. IMPRESSION: 1. Pulmonary findings may be on the basis of infectious process or contusion. Consider full assessment of the chest when patient is clinically able. 2. Limited assessment of the abdomen and pelvis without acute finding. 3. Nondiagnostic assessment of the pancreas. 4. Large amount of intracolonic stool EDURE: XY CHEST XRAY 1 VIEW DATE: 09/04/2025 01:18 AM HISTORY: AMS Views:1 COMPARISON: None FINDINGS/IMPRESSION: Lungs: The lungs are clear. Mediastinum: Mediastinal structures appear unremarkable.A endotracheal tube is seen with the tip projecting approximately 2 cm above the osmel.Nasogastric tube courses through the film. Skeletal: The skeletal structures appear unremarkable. 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 (09/04/25 ) Sodium Chloride 0.9% (09/04/25 01:30) Norepinephrine 8 Mg/250ml Kit (Levophed) (09/04/25 02:00) Epinephrine Hcl (09/04/25 02:00) Ventilator Orders (09/04/25 01:49) Abg W/ Co-Ox (09/04/25 02:30) Respiratory Culture W/ Gs (09/04/25 01:49) Communication Order (09/04/25 01:49) Sodium Bicarb 50meq/50ml Vial (09/04/25 02:15) Respiratory Misc. Order (09/04/25 02:11) Vital Signs .PER UNIT PROTOCOL (09/04/25 02:22) Administer Blood Products UD (09/04/25 02:22) Ct Ab Pel Wo Con-No Oral Or Iv (09/04/25 02:27) Dextrose 50% Syringe (09/04/25 02:45) Dextrose 50% Syringe (09/04/25 02:45) Glucose Blood (Accu-Chek Comfort Curve T (09/04/25 21:15) Stool Occult Blood (09/04/25 03:15) * Cardiology Consult (09/04/25 03:18) Midazolam Drip 100 Mg/100ml Ns (Versed D (09/04/25 05:00) Rass Sedation Scale Q1HR (09/04/25 04:59) Vital Signs Date Time Temp Pulse Resp B/P (MAP) Pulse Ox O2 Delivery O2 Flow Rate FiO2 09/04/25 04:37 105 21 107/30 (55) 100 50 09/04/25 04:31 75 21 51/22 97 50.0 100 09/04/25 04:28 203.0 Ambu-Bag 09/04/25 04:05 103 09/04/25 02:40 94.2 94.2 09/04/25 02:11 87 09/04/25 01:23 74/19 09/04/25 01:21 91 09/04/25 01:10 75 21 97 100 Laboratory Tests Test 09/04/25 01:40 09/04/25 03:39 Lactic Acid Level 21.1 mmol/L (0.4-2.0) *H 15.2 mmol/L (0.4-2.0) *H White Blood Count 8.8 10^3/uL (4.4-10.8) Medications Medications Dose Ordered Sig/Ese Route Start Time Stop Time Status Last Admin Dose Admin Albuterol 20 mg ONCE ONCE NEB 09/04/25 02:00 09/04/25 02:01 DC 09/04/25 02:17 Diagnostic Test (Pha) 1 strip ONCE STAT 09/04/25 02:32 09/04/25 02:33 DC 09/04/25 04:35 Insulin Human Regular 10 units ONCE ONCE IV 09/04/25 02:45 09/04/25 02:46 DC 09/04/25 04:35 Norepinephrine Bitartrate 250 ml @ 3.75 mls/hr Q24H IV 09/04/25 02:00 09/04/25 01:23 Sodium Bicarbonate 50 ml/ Dextrose 1,050 ml @ 100 mls/hr ONCE ONCE IV 09/04/25 02:15 09/04/25 12:44 09/04/25 03:41 Sodium Bicarbonate 50 ml ONCE ONCE IV 09/04/25 02:00 09/04/25 02:01 DC 09/04/25 03:40 Sodium Bicarbonate 50 ml ONCE ONCE IV 09/04/25 02:00 09/04/25 02:01 DC 09/04/25 03:40 Departure 1 Departure Time of Disposition: 03:06 Impression: Primary Impression: Cardiac arrest with successful resuscitation Additional Impressions: Acute renal failure Hyperkalemia Metabolic acidosis Lactic acidemia Hypothermia Metabolic encephalopathy Severe anemia Transfusion of blood during current hospitalisation Airway intubation performed without difficulty Disposition: ADMITTED INPATIENT Condition: Critical Comments MDM: 40-year-old female arrived to the emergency department in cardiac arrest Successful ROS was obtained after ACLS protocols were continued in the emergency department Patient was intubated for airway protection and GCS of 3 Central line was placed in the left femoral vein Antibiotics were initiated for suspected sepsis IV fluid resuscitation was initiated well as pressors administrative for treatment of circulatory shock 1 unit PRBCs administered for hemoglobin of 6.4. Discussed with the patient's family members in the emergency department Patient is stabilized in the emergency department Patient admitted to hospitalist service for further treatment, evaluation and monitoring. Extensive evaluation was performed in attempt to identify or rule out: (See differential diagnosis section) The following tests were ordered, and results were reviewed by me and discussed with patient: (See diagnostic results section) The following test were independently interpreted by me: EKG-no STEMI, hyperacute T-waves , chest x-ray no acute disease, CT head no acute intracranial hemorrhage I reviewed and agreed with the following test results read by other providers: CT head, CT abdomen and pelvis, chest x-ray I reviewed the following notes from the pt's past medical encounters: Encounter April 2025 for fracture Additional information was gathered from interviewing the following independent historians: EMS personnel, patient's family members at bedside Discussion of management or test interpretation with external physician/other qualified health managed care provider: N/A Addressed an acute or chronic illness that poses a threat to life or bodily function: Hyperkalemia, cardiac arrest with successful resuscitation, hyperkalemia, metabolic acidosis, lactic acidemia, metabolic encephalopathy, severe anemia requiring blood transfusion, respiratory failure Decision regarding hospitalization or escalation of hospital level of care: Risk and benefits of admission for further treatment of patient's condition was considered. Due to patient's current clinical condition, high risk of decline and poor outcome if discharged and need for further inpatient management and monitoring, patient will be admitted to the hospital. Drug therapy requiring intensive monitoring for toxicity: IV epinephrine, IV calcium gluconate, IV norepinephrine, packed red blood cells, IV magnesium, IV insulin, IV sodium bicarbonate Parenteral controlled substances: IV midazolam Critical Care Note Critical Care Time?: Yes (1 hr-critical care time only) Critical care comment: Due to a high probability of clinically significant, life threatening d eterioration, the patient required my highest level of preparedness to intervene emergently and I personally spent this critical care time directly and personally managing the patient. This critical care time included obtaining a history; examining the patient; pulse oximetry; ordering and review of studies; arranging urgent treatment with development of a management plan; evaluation of patient's response to treatment; frequent reassessment; and, discussions with other providers. This critical care time was performed to assess and manage the high probability of imminent, life-threatening deterioration that could result in multi-organ failure. It was exclusive of separately billable procedures and treating other patients and teaching time. Please see my other sections and the rest of the note for further information on patient assessment and treatment. Stability Stability form required: No Heart Score Heart Score: Heart Score Response (Comments) Value History N/A 0 EKG N/A 0 Age N/A 0 Risk Factors N/A 0 Troponin N/A 0 Total 0 I personally scribed for CATHIE ROGERS MD ([email or web address]) on 09/04/25 at 01:29. Electronically submitted by Wilian Cottrell ([email or web address]). I personally scribed for CATHIE ROGERS MD ([email or web address]) on 09/04/25 at 01:34. Electronically submitted by Wilian Cottrell ([email or web address]). I personally scribed for CATHIE ROGERS MD ([email or web address]) on 09/04/25 at 01:49. Electronically submitted by Wilian Cottrell ([email or web address]). I personally scribed for CATHIE ROGERS MD ([email or web address]) on 09/04/25 at 04:02. Electronically submitted by Wilian Cottrell ([email or web address]). I personally scribed for CATHIE ROGERS MD ([email or web address]) on 09/04/25 at 04:08. Electronically submitted by Wilian Cottrell ([email or web address]). CATHIE ROGERS MD Sep 04, 2025 01:29
[2025-09-04] MEDS: SODIUM CHLORIDE 0.9% 1,000 ML IV ONE ×3 (01:30→01:45)
[2025-09-04] MEDS: MIDAZOLAM DRIP 100 mg/100mL NS 100 ML IV ONE ×2 (01:32→04:23)
[2025-09-04] MEDS: VANCOMYCIN 1GM/250ML KIT 250 ML IV ONE ×3 (01:34→11:00)
[2025-09-04] MEDS: ATROPINE SULF 1 MG/10ml SYR IV ONE (01:45)
--- NOTE | 2025-09-04 01:46 | DVH ---
MEDICAL RECORDS NUMBER: [id number] PROCEDURE: XY CHEST XRAY 1 VIEW DATE: 09/04/2025 01:18 AM HISTORY: AMS Views:1 COMPARISON: None FINDINGS/IMPRESSION: Lungs: The lungs are clear. Mediastinum: Mediastinal structures appear unremarkable.A endotracheal tube is seen with the tip projecting approximately 2 cm above the osmel.Nasogastric tube courses through the film. Skeletal: The skeletal structures appear unremarkable.
[2025-09-04] MEDS: EPINEPHrine HCL 250 ML IV ONE (01:48)
[2025-09-04] MEDS: EPINEPHrine HCL 250 ML IV SCH (01:50)
[2025-09-04] MEDS: SODIUM BICARB 8.4% 50Meq/50ml SYR INJ ONE (01:59)
[2025-09-04 02:10] LABS: Hematocrit 25.0 % (36.0-46.0); Mean Corpuscular Hemoglobin 20.4 pg (28.0-32.0); Mean Corpuscular Volume 79.8 fL (80.0-100.0); Nucleated Red Blood Cells % 0.5 %
--- NOTE | 2025-09-04 02:13 | ECG ---
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
[2025-09-04] MEDS: ALBUTEROL SULF 2.5 MG/0.5ML(0.5%) NEB SOLN NEB ONE ×2 (02:17)
[2025-09-04 02:18] LABS: Alkaline Phosphatase 74 U/L (46-116); Anion Gap 28.00001 (5-15)
[2025-09-04 02:21] LABS: Hemoglobin 6.4 g/dL (12.2-16.2)
[2025-09-04 02:27] LABS: Albumin 2.7 g/dL (3.2-4.8); Calcium 7.9 mg/dL (8.7-10.4); Chloride 113 mmol/L (98-107); Glucose 146 mg/dL (74-106); Sodium 151 mmol/L (136-145)
--- NOTE | 2025-09-04 02:28 | RESUS ---
CODE BLUE ASSESSSMENT History of Events History of Events: 40-year-old female who came to ER via EMS in cardiac arrest. Per EMS, received a phone call for witnessed cardiac arrest at 1238 hours. They were on scene within 5 minutes, patient was asystole, CPR initiated by family. Family states patient was anxious but was not having any complaints like chest pain or shortness of breath. CPR continued. Fluids given. Epinephrine x2 given. Patient became VFib, so patient was shocked once at 100 joules, Narcan given, patient became asystole again upon arrival at ER at 0108 hours. Blood sugar upon arrival was 43 Initial Information Time: :08 Location of Arrest: In Field Arrest Witnessed: Yes CPR started initial time: 00:38 CPR started by whom: Last seen well: 0030 Pre-Hospital Care: ACLS Type of arrest: Cardiac, Respiratory, Adult, Witnessed Spontaneous Respirations: No Pulse Present: No Monitoring: ECG Crash Cart Opened and Supplies: Yes Airway Ventilation Breathing at Onset: Assisted Oxygen Delivery Method: Ambu-Bag Time of first Assisted Ventila: :08 Artificial Ventilation: Bag/Endo tube Intubation Time: :14 Intubation Size: 8.0 cuffed Intubated by: Dr. Newell Intubated orally: Yes Tube secured at: 24 Cricoid pressure done: Yes CO2 indicator used: Yes Confirmation: Auscultation, Chest X-ray Suctioning (Oral/Tracheal): Yes Comments: placed post code Circulation Circulation #1: Time: 01:08 Circulation Comment: arrival- cpr cont. from ems Circulation #2: Time: 01:10 Circulation Comment: asystole Circulation #3: Time: 01:12 Blood Pressure Systolic: 130 Blood Pressure Diastolic: 112 Temperature (Fahrenheit): 95.0 Circulation Comment: ROSC Procedure - Intraosseous Site of Intraosseous: Tibia paul-medial Intraosseous inserted by: Right side, placedems Medications & Response Medications and Responses #1: Medication Time: 01:08 ADULT Medications Given ADULT: Epinephrine 1 mg Route of Administration: IO Medications and Responses #2: Medication Time: 01:10 ADULT Medications Given ADULT: Sodium Bacarbinate 50 meq, D50 (amp), Magnesium Sulfate 2 gm Medications and Responses #3: Medication Time: 01:11 ADULT Medications Given ADULT: Epinephrine 1 mg Route of Administration: IO Nurses Notes Amo Coma Scale Eye Opening: None (1) Amo Coma Scale Verbal: None (1) L[place] Coma Scale Motor: None (1) Glascow Total: 3 Pupil Reaction: Sluggish Bedside Blood Glucose: 43 EKG Rhythm: Sinus Rhythm Nurses Notes - Comment: Post glucose 166 Time Code Ended Time Code Ended: 01:12 Post Arrest Status: Ventilated Outcome of code: Successful Code Team Present: Alix Mccloud RT, Carolyn RT, Chidi ER charge, Booker RN, Valeriy EMT, Roberto RN, Juan RN, Jo RNHS Post Resuscitation Neurologica Pupil Size: 4 ROSC Time of ROSC: 01:12 JO VERDUGO Sep 04, 2025 02:28
[2025-09-04 02:29] LABS: Carbon Dioxide < 10 mmol/L (20-31); Magnesium 4.1 mg/dL (1.6-2.6); Potassium 6.3 mmol/L (3.5-5.1)
[2025-09-04 02:31] LABS: Lipase 31 U/L (12-53)
[2025-09-04 02:32] LABS: Alanine Aminotransferase 1430 U/L (7-40)
[2025-09-04 02:33] LABS: INR 1.73 (0.9-1.15); Prothrombin Time 17.4 sec (9.3-11.8)
[2025-09-04 02:37] LABS: Lactic Acid w/Reflex 21.1 mmol/L (0.4-2.0)
[2025-09-04 02:39] LABS: BUN/Creatinine Ratio 11.5 (10.0-20.0); Bilirubin, Total < 0.2 mg/dL (0.2-1.0); Blood Urea Nitrogen 29 mg/dL (9-23); Total Protein 4.8 g/dL (5.7-8.2)
[2025-09-04] MEDS ORDERED: DEXTROSE (50%) 50ML SYRG IV PRN ×3 (02:45→05:15)
--- NOTE | 2025-09-04 03:23 | DVH ---
EXAM: CT HEAD WITHOUT CONTRAST INDICATION: AMS TECHNIQUE: CT of the head without intravenous contrast. Radiation Dose Information: CT Dose: CTDI volume is 53.16 mGy. Dose-length product is 941.36 mGy*cm The dose indicators for CT are the volume Computed Tomography (CT) Dose Index (CTDIvol) and the Dose Length Product (DLP), and are measured in units of mGy and mGy-cm, respectively. These indicators are not patient dose, but values generated from the CT scanner acquisition factors. The report includes radiation exposure data for exposures received during this examination. COMPARISON: None FINDINGS: There is no evidence of acute intracranial hemorrhage, extra-axial collection, mass effect, midline shift, herniation or hydrocephalus. The ventricles, sulci and cisterns are age appropriate. The lozoya-white differentiation is intact. The visualized paranasal sinuses and mastoid air cells are clear. The surrounding soft tissues and osseous structures are unremarkable. IMPRESSION: 1. No acute intracranial abnormality.
--- NOTE | 2025-09-04 03:27 | DVH ---
Exam: CT CT AB PEL WO CON-NO ORAL OR IV History: Abdomen distended, status post cardiac arrest Comparison Study: None TECHNIQUE: Multidetector CT of the abdomen and pelvis was performed from lung bases to pubic symphysis. Imaging was performed without IV contrast. Axial, coronal and sagittal multiplanar reformats were obtained from the axial data set by the technologist. Radiation optimization: All CT scans at this facility use at least one of these dose optimization techniques: automated exposure control mA and/or kV adjustment per patient size (includes targeted exams where dose is matched to clinical indication) or iterative reconstruction. Radiation Dose Information: CT Dose: CTDI volume is 8.19 mGy. Dose-length product is 480.39 mGy*cm FINDINGS: Evaluation of solid organs is limited due to lack of intravenous contrast use. Imaged portions of the lung bases demonstrate atelectatic changes in the left lung base. There is bilateral alveolar opacities in the anterior right and left upper lobes. Respiratory motion otherwise limits assessment. Enteric tube tip is seen within the stomach. Liver, spleen and adrenal glands appear unremarkable. The left kidney appears absent. Few 1 mm nonobstructing right nephroliths are noted. There is no hydronephrosis. Assessment of the pancreas is near impossible given motion. There is no evidence of bowel obstruction. There is a large amount of intracolonic stool. No evidence of free air. Urinary bladder is collapsed and presence of the Sams catheter. The uterus is retroverted. There is a 5.2 cm fat containing umbilical hernia. Right hip prosthesis resulting in beam hardening artifact. No suspicious osseous lesion. IMPRESSION: 1. Pulmonary findings may be on the basis of infectious process or contusion. Consider full assessment of the chest when patient is clinically able. 2. Limited assessment of the abdomen and pelvis without acute finding. 3. Nondiagnostic assessment of the pancreas. 4. Large amount of intracolonic stool
[2025-09-04] MEDS: SODIUM BICARB 8.4% 50Meq/50ml SYR Vial IV ONE ×3 (03:31→05:15)
[2025-09-04] MEDS: SODIUM BICARB 8.4% 50Meq/50ml SYR INJ IV ONE (03:40)
[2025-09-04] MEDS: SODIUM BICARB 50mEq/50ml Vial 50 ML in D5W 5% 1,000 ML IV ONE ×2 (03:41→07:00)
[2025-09-04 03:49] LABS: Urine Protein, UAD 2+ (Negative)
[2025-09-04 04:04] LABS: COVID19 ANTIGEN SOFIA FIA NEGATIVE (NEGATIVE)
[2025-09-04 04:11] LABS: Amphetamine Screen, Urine Neg (NEGATIVE); Barbiturate Scree,Urine Neg (NEGATIVE); Benzodiazephine Screen, Urine Neg (NEGATIVE); Cannabinoid Screen, Urine Neg (NEGATIVE); Cocaine Screen, Urine Neg (NEGATIVE); Opiate Scree,Urine Neg (NEGATIVE); Phencyclidine Screen, Urine Neg (NEGATIVE)
--- NOTE | 2025-09-04 04:11 | ECG ---
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
[2025-09-04 04:22] LABS: Base Excess -6.8 mmol/L (-2.0-3.0)
[2025-09-04] MEDS: MIDAZOLAM DRIP 100 mg/100mL NS 100 ML IV SCH (04:28)
[2025-09-04] MEDS: ACCU-CHEK COMFORT CURVE STRIP VI STA (04:35)
[2025-09-04] MEDS: InsuLIN REG 1unit/0.01ml Soln (100units/ml) IV ONE (04:35)
[2025-09-04] MEDS: NOREPINEPHRINE 8 MG/250ML KIT 250 ML IV ONE (04:59)
[2025-09-04] MEDS ORDERED: VANCOMYCIN PER PHARMACY 0 MG IV SCH (05:15)
[2025-09-04] MEDS: D5W 5% 1,000 ML IV SCH (05:15)
[2025-09-04] MEDS ORDERED: IBUPROFEN 100MG/5ML ORAL SUSP 100 MG/5 ML UD GT PRN (05:15)
[2025-09-04] MEDS ORDERED: NITROGLYCERIN 0.4 MG SL TAB SL PRN (05:15)
[2025-09-04] MEDS ORDERED: MORPHINE SULFATE INJ 2 MG/ml SYRG IV PRN (05:15)
[2025-09-04] MEDS ORDERED: ONDANSETRON HCL 4 MG/2 ML VIAL IV PRN (05:15)
[2025-09-04] MEDS ORDERED: NOREPINEPHRINE 8 MG/250ML KIT 250 ML IV SCH (05:45)
--- NOTE | 2025-09-04 05:57 | DVHHP2 ---
History of Present Illness Reason for Visit: Cardiac arrest with successful resuscitation History of Present Illness The patient is a 40-year-old female with past medical history of anxiety, UTIs, and kidney stones who presented to [facility] ED for evaluation of cardiac arrest. As reported by EMS/family, patient had cardiac arrest, was asystole 1238 a.m., CPR initiated by family. Patient was initially anxious but was not having any complaints like chest pain or shortness of breath. EMS were on the scene within 5 minutes, CPR continued, patient was given IV fluid, ep inephrine x2, became VFib so patient was shocked at 100 joules, Narcan given, became asystole again upon arrival at ER at 0108 hours, blood sugar upon arrival was 43, ROSC obtained at 0112 a.m. Family also reports that patient was depressed for the past 5 years, she has been staying in bed with decreased oral intake, had a fall injury in April resulting in arm and hip fracture. They denied any other significant past medical history. Patient was seen and evaluated in the ED, laboratory data shows WBC 8.8, hemoglobin 6.4, hematocrit 25.0, platelets 260, sodium 151, potassium 6.3, BUN 29, creatinine 2.52, GFR 24, glucose 146, anion gap 28.001, calcium 7.9, lactic acid 21.1 trending down to 15.2, magnesium 4.1, AST 2482, ALT 1430, troponin 2769, BNP 8.48, lipase 31, protein 4.8, albumin 2.7, blood pressure 151/22 trending up to 107/30, heart rate 106, temperature 94.2 F, O2 saturation 97% on ventilator. Head CT showed no acute intracranial abnormality. Patient was started on IV antibiotic regimen vancomycin, please see medication orders section in the computer. On my assessment, patient remains fully intubated, no diaphoresis, no diarrhea, vomiting, no fever. Patient was admitted for further evaluation and medical management. Past Medical History Anxiety, Kidney Stones, UTI'S Past Surgical History Unobtainable Family History Unobtainable Past Social History The patient lives at home, no history of smoking, alcohol or illicit drugs abuse on file. Review of Systems Constitutional: Yes: Weakness; No: Fever, Chills, Sweats, Malaise, Other Eyes: No: Pain, Vision change, Conjunctivae inflammation, Eyelid inflammation, Other, Redness ENT: No: Ear pain, Ear discharge, Nose pain, Nose discharge, Nose congestion, Mouth pain, Mouth swelling, Throat pain, Throat swelling, Other Respiratory: Shortness of breath, Other (On ventilator); No: Cough, Dry, SOB with excertion, Wheezing, Hemoptysis, Pleuritic Pain, Sputum, Wheezing Cardiovascular: Other (Cardiac arrest); No: Chest Pain, Palpitations, Orthopnea, Paroxysmal Noc. Dyspnea, Edema, Lt Headedness Gastrointestinal: No: Nausea, Vomiting, Abdominal Pain, Diarrhea, Constipation, Melena, Hematochezia, Other Genitourinary: No Dysuria, No Frequency, No Incontinence, No Hematuria, No Retention; Other (Sams catheter in place) Musculoskeletal: No: other, neck pain, shoulder pain, arm pain, back pain, hand pain, leg pain, foot pain Skin: No: Rash, Lesions, Jaundice, Bruising, Other Neurological: Confusion; No: Weakness, Numbness, Incoordination, Change in speech, Seizures, Other Allergies: Coded Allergies: NO KNOWN ALLERGIES (Unverified , 07/10/10) Medications Current Medications Medications Dose Ordered Sig/Ese Route Start Time Stop Time Status Last Admin Dose Admin Norepinephrine Bitartrate 250 ml @ 3.75 mls/hr Q24H IV 09/04/25 02:00 09/04/25 01:23 3.75 MLS/HR Epinephrine HCl 250 ml @ 7.5 mls/hr Q24H IV 09/04/25 02:00 Dextrose 50 ml PRN PRN IV 09/04/25 02:45 Dextrose 50 ml PRN PRN IV 09/04/25 02:45 Midazolam HCl 100 ml @ 1 mls/hr Q24H IV 09/04/25 05:00 Exam Vital Signs Vital Signs Date Time Temp Pulse Resp B/P (MAP) Pulse Ox O2 Delivery O2 Flow Rate FiO2 09/04/25 04:37 105 21 107/30 (55) 100 50 09/04/25 04:31 50.0 09/04/25 04:28 203.0 Ambu-Bag General Appearance: Other (On ventilator) HEENT: Atraumatic, PERRLA, EOMI, Mucous membr. moist/pink Respiratory: Normal air movement, Other (Fully intubated) Cardiovascular: Regular rate, Normal S1, Normal S2, No murmurs Abdominal: Normal bowel sounds, Soft, No tenderness, No hepatospenomegaly, No masses Extremities: No clubbing, No cyanosis, No edema, Normal pulses, No tenderness/swelling Skin: No rashes Neuro: Normal tone, Reflexes 2+, Other (Generalized weakness) Psych/Mental Status: Mood NL, Other (Altered mental status) Labs/Xrays Labs Test 09/04/25 04:43 09/04/25 03:40 09/04/25 03:39 09/04/25 03:14 Range/Units Troponin I High Sensitivity 8221 *H </=34 ng/L Blood Gas Specimen Type Arterial Blood Gas Sample Site Left brachial Blood Gas Patient Temperature 37.0 Arterial Blood Date Drawn [id number] Arterial Blood pH 7.347 L 7.350-7.450 Arterial Blood Partial Pressure CO2 33.8 32.0-45.0 mmHg Arterial Blood Partial Pressure O2 339.2 *H 83.0-108.0 mmHg Arterial Blood HCO3 18.1 L 21.0-28.0 mmol/L Arterial Blood Oxygen Saturation 99.3 H 94.0-98.0 % Arterial Blood Base Excess -6.8 L -2.0-3.0 mmol/L Arterial Blood Oxyhemoglobin 97.9 94.0-98.0 % Arterial Blood Carboxyhemoglobin 0.5 0.5-1.5 % Arterial Blood Methemoglobin 0.9 0.0-1.5 % Fernando Test Modified Blood Gas Total Hemoglobin 8.10 L 12.0-16.0 g/dL Blood Gas Set Respiration Rate 18.0 Blood Gas Modality Vent - ac FiO2 % 100.0 Blood Gas Tidal Volume 450.0 Blood Gas PEEP or CPAP 5.0 Blood Gas Critical Value Read Back Yes Blood Gas Notified Whom giovanny Flores Blood Gas Notified Time [id number] Blood Gas Notified By Rt rafia rojas Lactic Acid Level 15.2 *H 0.4-2.0 mmol/L Urine Color Light-orange Yellow Urine Clarity Turbid H Clear Urine pH 5.5 5.0-9.0 Urine Specific Platinum 1.015 1.001-1.035 Urine Protein 2+ H Negative Urine Ketones 1+ H Negative Urine Blood 3+ H Negative /uL Urine Nitrite Negative Negative Urine Bilirubin Negative Negative Urine Urobilinogen Normal Negative mg/dL Urine Leukocyte Esterase Negative Negative /uL Urine RBC 281 0 - 4 /hpf Urine Microscopic WBC 37 H 0-5 /HPF Urine Squamous Epithelial Cells Few <5 /hpf Urine Calcium Oxalate Crystals Few None Seen Urine Bacteria Few H None Seen /hpf Urine Hyaline Casts Many 0 - 2 /lpf Urine Mucus Few None Seen Urine Glucose Trace Normal mg/dL Urine Opiates Screen Neg NEGATIVE Urine Fentanyl Screen Neg NEGATIVE Urine Barbiturates Screen Neg NEGATIVE Urine Phencyclidine Screen Neg NEGATIVE Urine Amphetamines Screen Neg NEGATIVE Urine Benzodiazepines Screen Neg NEGATIVE Urine Cocaine Screen Neg NEGATIVE Urine Cannabinoids Screen Neg NEGATIVE Test 09/04/25 03:10 09/04/25 02:32 09/04/25 01:49 09/04/25 01:40 Range/Units Influenza Type A Antigen Negative Negative Influenza Type B Antigen Negative Negative SARS-CoV-2 Antigen (Rapid) Negative NEGATIVE Creatine Kinase 458 H 34-145 U/L Blood Gas Comments White Blood Count 8.8 4.4-10.8 10^3/uL Red Blood Count 3.13 L 4.0-5.20 10^6/uL Hemoglobin 6.4 *L 12.2-16.2 g/dL Hematocrit 25.0 L 36.0-46.0 % Mean Corpuscular Volume 79.8 L 80.0-100.0 fL Mean Corpuscular Hemoglobin 20.4 L 28.0-32.0 pg Mean Corpuscular Hemoglobin Concent 25.5 L 32.0-36.0 g/dL Red Cell Distribution Width 19.3 H 11.8-14.3 % Platelet Count 260 140-450 10^3/uL Mean Platelet Volume 10.8 6.9-10.8 fL Neutrophils (%) (Auto) 73.3 37.0-80.0 % Lymphocytes (%) (Auto) 23.3 10.0-50.0 % Monocytes (%) (Auto) 2.8 0.0-12.0 % Eosinophils (%) (Auto) 0.1 0.0-7.0 % Basophils (%) (Auto) 0.5 0.0-2.0 % Neutrophils # (Auto) 6.4 1.6-8.6 10 ^3/uL Lymphocytes # (Auto) 2.0 0.4-5.4 10 ^3/uL Monocytes # (Auto) 0.2 0-1.3 10 ^3/uL Eosinophils # (Auto) 0 0-0.8 10 ^3/uL Basophils # (Auto) 0 0-0.2 10 ^3/uL Nucleated Red Blood Cells 0.5 % Prothrombin Time 17.4 H 9.3-11.8 sec Prothrombin Time INR 1.73 H 0.9-1.15 Sodium Level 151 H 136-145 mmol/L Potassium Level 6.3 *H 3.5-5.1 mmol/L Chloride Level 113 H 98-107 mmol/L Carbon Dioxide Level < 10 *L 20-31 mmol/L Anion Gap 28.66889 H 5-15 Blood Urea Nitrogen 29 H 9-23 mg/dL Creatinine 2.52 H 0.550-1.02 mg/dL Glomerular Filtration Rate Calc 24 >90 mL/min BUN/Creatinine Ratio 11.5 10.0-20.0 Serum Glucose 146 H 74-106 mg/dL Calcium Level 7.9 L 8.7-10.4 mg/dL Magnesium Level 4.1 *H 1.6-2.6 mg/dL Total Bilirubin < 0.2 L 0.2-1.0 mg/dL Aspartate Amino Transferase (AST) 2482 H 13-40 U/L Alanine Aminotransferase (ALT) 1430 H 7-40 U/L Alkaline Phosphatase 74 46-116 U/L B-Type Natriuretic Peptide 8.48 0-100 pg/mL Total Protein 4.8 L 5.7-8.2 g/dL Albumin 2.7 L 3.2-4.8 g/dL Lipase 31 12-53 U/L Thyroid Stimulating Hormone (TSH) 2.31 0.55-4.78 uIU/mL Plasma/Serum Blood Alcohol < 3.0 <10 mg/dL PATIENT: VOLODYMYR HAILE ACCT: [id number] UNIT: [id number] : 1985 LOC: ER ROOM / BED: / AGE / SEX: 40 / F ADM STATUS: REG ER SERVICE 0227 ORDERING PHYSICIAN: CATHIE ROGERS MD PROCEDURE(s): ABPL - CT AB PEL WO CON-NO ORAL OR IV REASON: Abdomen distended, status post cardiac arrest ORDER NUMBER(s): [id number], ACCESSION NUMBER(s): [id number] Exam: CT CT AB PEL WO CON-NO ORAL OR IV History: Abdomen distended, status post cardiac arrest Comparison Study: None TECHNIQUE: Multidetector CT of the abdomen and pelvis was performed from lung bases to pubic symphysis. Imaging was performed without IV contrast. Axial, coronal and sagittal multiplanar reformats were obtained from the axial data set by the technologist. Radiation optimization: All CT scans at this facility use at least one of these dose optimization techniques: automated exposure control mA and/or kV adjustment per patient size (includes targeted exams where dose is matched to clinical indication) or iterative reconstruction. Radiation Dose Information: CT Dose: CTDI volume is 8.19 mGy. Dose-length product is 480.39 mGy*cm FINDINGS: Evaluation of solid organs is limited due to lack of intravenous contrast use. Imaged portions of the lung bases demonstrate atelectatic changes in the left lung base. There is bilateral alveolar opacities in the anterior right and left upper lobes. Respiratory motion otherwise limits assessment. Enteric tube tip is seen within the stomach. Liver, spleen and adrenal glands appear unremarkable. The left kidney appears absent. Few 1 mm nonobstructing right nephroliths are noted. There is no hydronephrosis. Assessment of the pancreas is near impossible given motion. There is no evidence of bowel obstruction. There is a large amount of intracolonic stool. No evidence of free air. Urinary bladder is collapsed and presence of the Sams catheter. The uterus is retroverted. There is a 5.2 cm fat containing umbilical hernia. Right hip prosthesis resulting in beam hardening artifact. No suspicious osseous lesion. IMPRESSION: 1. Pulmonary findings may be on the basis of infectious process or contusion. Consider full assessment of the chest when patient is clinically able. 2. Limited assessment of the abdomen and pelvis without acute finding. 3. Nondiagnostic assessment of the pancreas. 4. Large amount of intracolonic stool ORDERING PHYSICIAN: CATHIE ROGERS MD PROCEDURE(s): HWOCT - HEAD WITHOUT CONTRAST REASON: [facility] ORDER NUMBER(s): [id number], ACCESSION NUMBER(s): [id number] EXAM: CT HEAD WITHOUT CONTRAST INDICATION: AMS TECHNIQUE: CT of the head without intravenous contrast. Radiation Dose Information: CT Dose: CTDI volume is 53.16 mGy. Dose-length product is 941.36 mGy*cm The dose indicators for CT are the volume Computed Tomography (CT) Dose Index (CTDIvol) and the Dose Length Product (DLP), and are measured in units of mGy and mGy-cm, respectively. These indicators are not patient dose, but values generated from the CT scanner acquisition factors. The report includes radiation exposure data for exposures received during this examination. COMPARISON: None FINDINGS: There is no evidence of acute intracranial hemorrhage, extra-axial collection, mass effect, midline shift, herniation or hydrocephalus. The ventricles, sulci and cisterns are age appropriate. The lozoya-white differentiation is intact. The visualized paranasal sinuses and mastoid air cells are clear. The surrounding soft tissues and osseous structures are unremarkable. IMPRESSION: 1. No acute intracranial abnormality. ORDERING PHYSICIAN: CATHIE ROGERS MD PROCEDURE(s): CXR1 - CHEST XRAY 1 VIEW REASON: [facility] ORDER NUMBER(s): [id number], ACCESSION NUMBER(s): [id number] MEDICAL RECORDS NUMBER: [id number] PROCEDURE: XY CHEST XRAY 1 VIEW DATE: 09/04/2025 01:18 AM HISTORY: AMS Views:1 COMPARISON: None FINDINGS/IMPRESSION: Lungs: The lungs are clear. Mediastinum: Mediastinal structures appear unremarkable.A endotracheal tube is seen with the tip projecting approximately 2 cm above the osmel. Nasogastric tube courses through the film. Skeletal: The skeletal structures appear unremarkable. SEPSIS Sepsis Screen Date sepsis recognized/suspect: Sep 04, 2025 Time Sepsis recognized/suspect: 0111 Physician Orders Head Without Contrast (09/04/25 01:19) Chest Xray 1 View (09/04/25 01:19) Blood Culture (09/04/25 01:19) Abg W/ Co-Ox (09/04/25 01:19) Saline Lock (09/04/25 01:19) Pilot Boat Captain (09/04/25 ) Straight Cath. (09/04/25 ) Sodium Chloride 0.9% (09/04/25 01:30) Norepinephrine 8 Mg/250ml Kit (Levophed) (09/04/25 02:00) Epinephrine Hcl (09/04/25 02:00) Ventilator Orders (09/04/25 01:49) Abg W/ Co-Ox (09/04/25 02:30) Respiratory Culture W/ Gs (09/04/25 01:49) Communication Order (09/04/25 01:49) Sodium Bicarb 50meq/50ml Vial (09/04/25 02:15) Respiratory Misc. Order (09/04/25 02:11) Vital Signs .PER UNIT PROTOCOL (09/04/25 02:22) Administer Blood Products UD (09/04/25 02:22) Ct Ab Pel Wo Con-No Oral Or Iv (09/04/25 02:27) Dextrose 50% Syringe (09/04/25 02:45) Dextrose 50% Syringe (09/04/25 02:45) Glucose Blood (Accu-Chek Comfort Curve T (09/04/25 21:15) Stool Occult Blood (09/04/25 03:15) * Cardiology Consult (09/04/25 03:18) Midazolam Drip 100 Mg/100ml Ns (Versed D (09/04/25 05:00) Rass Sedation Scale Q1HR (09/04/25 04:59) Complete Blood Count (09/04/25 05:10) Comprehensive Metabolic Panel (09/04/25 05:10) *Consult (09/04/25 05:10) * [facility] Distribution Analyst (09/04/25 05:10) D5w 5% (09/04/25 05:15) Ibuprofen 100mg/5 Ml Oral Susp (Motrin 1 (09/04/25 05:15) Ceftriaxone Ivpb Rocephin (09/04/25 09:00) Vancomycin (09/04/25 05:15) Metronidazole Ivpb Flagyl (09/04/25 06:00) *[facility] (09/04/25 05:10) Glucose Blood (Accu-Chek Comfort Curve T (09/04/25 07:00) Mild Sliding Scale (09/04/25 07:00) Dextrose 50% Syringe (09/04/25 05:15) Admit (09/04/25 05:10) Allergies (09/04/25 05:10) Code Status (09/04/25 05:10) Oxygen Per Hour (09/04/25 05:10) Ondansetron Hcl (Zofran) (09/04/25 05:15) Fall Risk Precautions In Place QSHIFT (09/04/25 05:10) Complete Blood Count (09/05/25 04:00) Comprehensive Metabolic Panel (09/05/25 04:00) Npo (Nothing By Mouth) Diet (09/04/25 Breakfast) Condition: Critical (09/04/25 05:10) Maintain Bed Rest (09/04/25 05:10) Sequential Compression Device (09/04/25 ) Nitroglycerin Sublingual (Ntrostat Subli (09/04/25 05:15) Vital Signs Date Time Temp Pulse Resp B/P (MAP) Pulse Ox O2 Delivery O2 Flow Rate FiO2 09/04/25 04:37 105 21 107/30 (55) 100 50 09/04/25 04:31 75 21 51/22 97 50.0 100 09/04/25 04:28 203.0 Ambu-Bag 09/04/25 04:05 103 09/04/25 02:40 94.2 94.2 09/04/25 02:11 87 09/04/25 01:23 74/19 09/04/25 01:21 91 09/04/25 01:10 75 21 97 100 Laboratory Tests Test 09/04/25 01:40 09/04/25 03:39 Lactic Acid Level 21.1 mmol/L (0.4-2.0) *H 15.2 mmol/L (0.4-2.0) *H White Blood Count 8.8 10^3/uL (4.4-10.8) Medications Medications Dose Ordered Sig/Ese Route Start Time Stop Time Status Last Admin Dose Admin Albuterol 20 mg ONCE ONCE NEB 09/04/25 02:00 09/04/25 02:01 DC 09/04/25 02:17 20 MG Diagnostic Test (Pha) 1 strip ONCE STAT 09/04/25 02:32 09/04/25 02:33 DC 09/04/25 04:35 1 STRIP Insulin Human Regular 10 units ONCE ONCE IV 09/04/25 02:45 09/04/25 02:46 DC 09/04/25 04:35 10 UNITS Norepinephrine Bitartrate 250 ml @ 3.75 mls/hr Q24H IV 09/04/25 02:00 09/04/25 01:23 3.75 MLS/HR Sodium Bicarbonate 50 ml/ Dextrose 1,050 ml @ 100 mls/hr ONCE ONCE IV 09/04/25 02:15 09/04/25 12:44 09/04/25 03:41 100 MLS/HR Sodium Bicarbonate 50 ml ONCE ONCE IV 09/04/25 02:00 09/04/25 02:01 DC 09/04/25 03:40 50 ML Sodium Bicarbonate 50 ml ONCE ONCE IV 09/04/25 02:00 09/04/25 02:01 DC 09/04/25 03:40 50 ML Assessment/Plan Assessment/Plan Cardiac arrest with successful resuscitation Severe anemia Acute renal failure Hyperkalemia Metabolic acidosis Sepsis, unspecified organism Hypothermia Elevated liver enzymes Metabolic encephalopathy Transfusion of blood during current hospitalization Airway intubation performed without difficulty Plan 1. Admit to intensive care unit 2. Breathing treatment 3. Pain control management 4. IV antibiotic management 5. Management of fluids and electrolytes 6. Consultation for Cardiology/Nephrology/GI 7. Diagnostic test head CT 8. DVT prophylaxis-on SCDs 9. Repeat labs CBC, CMP in a.m. 10. Home medication reviewed and reconciled 11. Continue with current medical management 12. Treatment plan discussed with patient and RN. Patient will need reinstatement of information given mental status. Plan discussed with: Patient, Other (RN) My Orders Orders - RODNEY LYNNE DNP Procedure Category Date Status Time Complete Blood Count LAB 09/04/25 Verified 05:10 Comprehensive LAB 09/04/25 Verified Metabolic Panel 05:10 *Consult CONS 09/04/25 Verified 05:10 * [employer] [facility] Analyst CONS 09/04/25 Verified 05:10 D5w 5% PHA 09/04/25 Verified 05:15 Ibuprofen 100mg/5 Ml PHA 09/04/25 Verified Oral Susp (Motrin 1 05:15 Ceftriaxone Ivpb PHA 09/04/25 Verified Rocephin 09:00 Vancomycin PHA 09/04/25 Verified 05:15 Metronidazole Ivpb PHA 09/04/25 Verified Flagyl 06:00 *[facility] CONS 09/04/25 Verified -[place] 05:10 Glucose Blood PHA 09/04/25 Verified (Accu-Chek Comfort 07:00 Mild Sliding Scale PHA 09/04/25 Verified 07:00 Dextrose 50% Syringe PHA 09/04/25 Verified 05:15 Admit ADMIT 09/04/25 Verified 05:10 Allergies WALTER 09/04/25 Verified 05:10 Code Status CODE 09/04/25 Verified 05:10 Oxygen Per Hour RT 09/04/25 Verified 05:10 Ondansetron Hcl PHA 09/04/25 Verified (Zofran) 05:15 Fall Risk Precautions WALTER 09/04/[address] 05:10 Complete Blood Count LAB 09/05/25 Verified 04:00 Comprehensive LAB 09/05/25 Verified Metabolic Panel 04:00 Npo (Nothing By DIET 09/04/25 Verified Mouth) Diet Breakfast Condition: Critical WALTER 09/04/25 Verified 05:10 Maintain Bed Rest WALTER 09/04/25 Verified 05:10 Sequential WALTER 09/04/25 Verified Compression Device Nitroglycerin PHA 09/04/25 Verified Sublingual (Ntrostat 05:15 Problem List: (1) Cardiac arrest with successful resuscitation (2) Severe anemia (3) Acute renal failure (4) Hyperkalemia (5) Metabolic encephalopathy (6) Metabolic acidosis (7) Sepsis, unspecified organism (8) Hypothermia (9) Elevated liver enzymes (10) Transfusion of blood during current hospitalisation (11) Airway intubation performed without difficulty Date of Service: Sep 04, 2025 Billing Provider: RODNEY LYNNE DNP Common Visit Codes: [id number] INP/OBS CARE (HIGH), [id number] CARE 30- 74 MIN RODNEY LYNNE DNP Sep 04, 2025 05:57
[2025-09-04 06:17] LABS: Nucleated Red Blood Cells % 0.3 %
[2025-09-04 06:19] LABS: Hematocrit 29.5 % (36.0-46.0); Hemoglobin 8.3 g/dL (12.2-16.2); Mean Corpuscular Hemoglobin 20.1 pg (28.0-32.0); Mean Corpuscular Volume 71.7 fL (80.0-100.0)
[2025-09-04 06:34] LABS: Anion Gap 30 (5-15); BUN/Creatinine Ratio 11.6 (10.0-20.0); Bilirubin, Total 0.5 mg/dL (0.2-1.0); Potassium 4.6 mmol/L (3.5-5.1)
[2025-09-04 06:46] LABS: Alanine Aminotransferase 2179 U/L (7-40); Albumin 3.1 g/dL (3.2-4.8); Alkaline Phosphatase 152 U/L (46-116); Blood Urea Nitrogen 31 mg/dL (9-23); Calcium 8.1 mg/dL (8.7-10.4); Chloride 108 mmol/L (98-107); Glucose 294 mg/dL (74-106); Sodium 148 mmol/L (136-145); Total Protein 5.6 g/dL (5.7-8.2)
[2025-09-04 06:48] LABS: Carbon Dioxide 10 mmol/L (20-31)
[2025-09-04] MEDS: ACCU-CHEK COMFORT CURVE STRIP VI SCH (07:12)
[2025-09-04] MEDS: InsuLIN REG 1unit/0.01ml Soln (100units/ml) SC SCH (07:15)
[2025-09-04] MEDS ORDERED: VANCOMYCIN 1.25GM/250ML 250 ML IV ONE (07:15)
[2025-09-04] MEDS: PROPOFOL 100 ML IV SCH (09:30)
--- NOTE | 2025-09-04 10:46 | DVHINCON2 ---
Date of service: Sep 04, [address] spear Reason for Consultation vent management History of Present Illness HPI 40 yo female, h/o anxiety/depression, collapsed at home with cardiac arrest requiring CPR 30 min. Pt intubated upon arrival in ER. on epi and levophed dr queen. on ac volume control. UDS negative Home Meds Active Scripts Hydrocodone-Acetaminophen (Hydrocodone Bitartrate/AC 10-325 mg) 1 Tab Tab, 1 TAB PO BID, #10 TAB Prov:UNA MARTE 05/15/25 Ibuprofen (Ibuprofen) 800 Mg Tab, 1 TAB PO TID, #20 TAB Prov:UNA MARTE 05/15/25 Hydrocodone-Acetaminophen (Hydrocodone Bitartrate/AC 5-325 mg) 1 Tab Tab, 1 TAB PO TID, #12 TAB Prov:UNA MARTE 05/07/25 Cyclobenzaprine Hcl (Cyclobenzaprine Hcl) 5 Mg Tab, 1 TAB PO QPM PRN, #14 TAB 0 Refills Prov:DARRYL RICO 10/02/22 Acetaminophen W/ Codeine (Tylenol W/Cod #3) 1 Tab Tb, 1 TAB PO QIDP, #10 TAB 0 Refills Prov:DARRYL RICO 10/02/22 Reported Medications Multivit-Min W/Fe-Fa (Mynatal) Cap 07/10/10 Past Medical History Patient Family History: Patient reports no known family medical history. Review of Systems Comments intubated H&P Exam Vital Signs Vital Signs Date Time Temp Pulse Resp B/P (MAP) Pulse Ox O2 Delivery O2 Flow Rate FiO2 09/04/25 10:00 100 Mechanical Ventilator 09/04/25 10:00 50 50 09/04/25 09:30 112 40 102/31 (54) 09/04/25 07:30 98.8 98.8 09/04/25 04:31 50.0 Labs/Xrays Labs Test 09/04/25 05:49 09/04/25 04:43 09/04/25 03:40 09/04/25 03:39 Range/Units White Blood Count 21.3 #H 4.4-10.8 10^3/uL Red Blood Count 4.12 4.0-5.20 10^6/uL Hemoglobin 8.3 #L 12.2-16.2 g/dL Hematocrit 29.5 #L 36.0-46.0 % Mean Corpuscular Volume 71.7 #L 80.0-100.0 fL Mean Corpuscular Hemoglobin 20.1 L 28.0-32.0 pg Mean Corpuscular Hemoglobin Concent 28.1 L 32.0-36.0 g/dL Red Cell Distribution Width 19.1 H 11.8-14.3 % Platelet Count 397 140-450 10^3/uL Mean Platelet Volume 9.4 6.9-10.8 fL Neutrophils (%) (Auto) 90.7 H 37.0-80.0 % Lymphocytes (%) (Auto) 6.5 L 10.0-50.0 % Monocytes (%) (Auto) 2.7 0.0-12.0 % Eosinophils (%) (Auto) 0.0 0.0-7.0 % Basophils (%) (Auto) 0.1 0.0-2.0 % Neutrophils # (Auto) 19.3 H 1.6-8.6 10 ^3/uL Lymphocytes # (Auto) 1.4 0.4-5.4 10 ^3/uL Monocytes # (Auto) 0.6 0-1.3 10 ^3/uL Eosinophils # (Auto) 0 0-0.8 10 ^3/uL Basophils # (Auto) 0 0-0.2 10 ^3/uL Nucleated Red Blood Cells 0.3 % Sodium Level 148 H 136-145 mmol/L Potassium Level 4.6 3.5-5.1 mmol/L Chloride Level 108 H 98-107 mmol/L Carbon Dioxide Level 10 L 20-31 mmol/L Anion Gap 30 H 5-15 Blood Urea Nitrogen 31 H 9-23 mg/dL Creatinine 2.68 H 0.550-1.02 mg/dL Glomerular Filtration Rate Calc 22 >90 mL/min BUN/Creatinine Ratio 11.6 10.0-20.0 Serum Glucose 294 H 74-106 mg/dL Calcium Level 8.1 L 8.7-10.4 mg/dL Total Bilirubin 0.5 0.2-1.0 mg/dL Aspartate Amino Transferase (AST) 4174 H 13-40 U/L Alanine Aminotransferase (ALT) 2179 H 7-40 U/L Alkaline Phosphatase 152 H 46-116 U/L Total Protein 5.6 L 5.7-8.2 g/dL Albumin 3.1 L 3.2-4.8 g/dL Troponin I High Sensitivity 8221 *H </=34 ng/L Blood Gas Specimen Type Arterial Blood Gas Sample Site Left brachial Blood Gas Patient Temperature 37.0 Arterial Blood Date Drawn [id number] Arterial Blood pH 7.347 L 7.350-7.450 Arterial Blood Partial Pressure CO2 33.8 32.0-45.0 mmHg Arterial Blood Partial Pressure O2 339.2 *H 83.0-108.0 mmHg Arterial Blood HCO3 18.1 L 21.0-28.0 mmol/L Arterial Blood Oxygen Saturation 99.3 H 94.0-98.0 % Arterial Blood Base Excess -6.8 L -2.0-3.0 mmol/L Arterial Blood Oxyhemoglobin 97.9 94.0-98.0 % Arterial Blood Carboxyhemoglobin 0.5 0.5-1.5 % Arterial Blood Methemoglobin 0.9 0.0-1.5 % Fernando Test Modified Blood Gas Total Hemoglobin 8.10 L 12.0-16.0 g/dL Blood Gas Set Respiration Rate 18.0 Blood Gas Modality Vent - ac FiO2 % 100.0 Blood Gas Tidal Volume 450.0 Blood Gas PEEP or CPAP 5.0 Blood Gas Critical Value Read Back Yes Blood Gas Notified Whom giovanny Flores Blood Gas Notified Time [id number] Blood Gas Notified By Rt rafia rojas Lactic Acid Level 15.2 *H 0.4-2.0 mmol/L Test 09/04/25 03:14 09/04/25 03:10 09/04/25 02:32 09/04/25 01:49 Range/Units Urine Color Light-orange Yellow Urine Clarity Turbid H Clear Urine pH 5.5 5.0-9.0 Urine Specific [place] 1.015 1.001-1.035 Urine Protein 2+ H Negative Urine Ketones 1+ H Negative Urine Blood 3+ H Negative /uL Urine Nitrite Negative Negative Urine Bilirubin Negative Negative Urine Urobilinogen Normal Negative mg/dL Urine Leukocyte Esterase Negative Negative /uL Urine RBC 281 0 - 4 /hpf Urine Microscopic WBC 37 H 0-5 /HPF Urine Squamous Epithelial Cells Few <5 /hpf Urine Calcium Oxalate Crystals Few None Seen Urine Bacteria Few H None Seen /hpf Urine Hyaline Casts Many 0 - 2 /lpf Urine Mucus Few None Seen Urine Glucose Trace Normal mg/dL Urine Opiates Screen Neg NEGATIVE Urine Fentanyl Screen Neg NEGATIVE Urine Barbiturates Screen Neg NEGATIVE Urine Phencyclidine Screen Neg NEGATIVE Urine Amphetamines Screen Neg NEGATIVE Urine Benzodiazepines Screen Neg NEGATIVE Urine Cocaine Screen Neg NEGATIVE Urine Cannabinoids Screen Neg NEGATIVE Influenza Type A Antigen Negative Negative Influenza Type B Antigen Negative Negative SARS-CoV-2 Antigen (Rapid) Negative NEGATIVE Creatine Kinase 458 H 34-145 U/L Blood Gas Comments Test 09/04/25 01:40 Range/Units Prothrombin Time 17.4 H 9.3-11.8 sec Prothrombin Time INR 1.73 H 0.9-1.15 Magnesium Level 4.1 *H 1.6-2.6 mg/dL B-Type Natriuretic Peptide 8.48 0-100 pg/mL Lipase 31 12-53 U/L Thyroid Stimulating Hormone (TSH) 2.31 0.55-4.78 uIU/mL Plasma/Serum Blood Alcohol < 3.0 <10 mg/dL Assessment/Plan Plan pt seen and examined in ER on 2 pressors bicarb drip labs severe metabolic acidosis pH 6.9 KIMI shock liver Na sodium elevated CXR reviewed follow up plan sedation vent support pressors as needed d5 w 75 cc /hr monitor lytes Cr echo pending cardiac work up for elvated troponins empiric abx us of legs Plan discussed with: Other (rn) FRANNY ROBLES MD Sep 04, 2025 10:46
[2025-09-04 11:16] LABS: Base Excess -6.9 mmol/L (-2.0-3.0)
--- NOTE | 2025-09-04 11:24 | DVH ---
US DVT Bilateral lower extremities Comparison: None Technique: Color and duplex doppler imaging of the bilateral lower extremity veins was performed. Vessel compression if possible was also performed. Findings: Right Lower Extremity: Right common femoral vein: Normal compressibility and flow. Right femoral vein: Normal compressibility and flow. Right popliteal vein: Normal compressibility and flow. Proximal calf veins are normally compressible. Left Lower Extremity: Left common femoral vein: Normal compressibility and flow. Left femoral vein: Normal compressibility and flow. Left popliteal vein: Normal compressibility and flow. Proximal calf veins are normally compressible. IMPRESSION: NO SONOGRAPHIC EVIDENCE FOR DEEP VENOUS THROMBOSIS IN THE BILATERAL LOWER EXTREMITY VEINS.
--- NOTE | 2025-09-04 11:53 | DVHINCON2 ---
Date Seen: Sep 04, 2025 Referring Physician MD Osiris Reason for Consultation Cardiopulmonary arrest History of Present Illness This is a 40-year-old female who presented to the emergency room via EMS with a chief complaint of cardiopulmonary arrest. Information obtained from records and family at bedside including daughters x2 and has been. Family states the patient has been experiencing episodes of seizure-like activity during the past month and worsening during the past two weeks. Some of these events are associated with oral trauma and visual disturbances. The patient had seen a doctor in [place] and was diagnosed with anxiety for which he was placed on medic ation approximally six months ago. They report during this event the patient was uneasy, very anxious, with poor appetite and subsequent seizure-like activity followed by cardiopulmonary arrest for which called 911 and was instructed to initiate CPR until EMS arrival approximately 10 min after with the patient being intubated and ACLS protocol initiated including two rounds of epinephrine. There was reported ventricular fibrillation for which the patient was shocked at 100 J and subsequent ROSC. Significant medical history includes anxiety with panic attacks, depression in 2020, right hip surgery, and left shoulder repair 04/2025. Past Medical History Past medical history reviewed. No other significant than mentioned above. Past Surgical History Left shoulder repair, 04/2025 Right hip surgery Family History: Patient reports no known family medical history. Family History Family history reviewed. Not significant for cardiovascular disease. Social History Per family there is no use of illicit drugs, alcohol, or tobacco use. Allergies: Coded Allergies: NO KNOWN ALLERGIES (Unverified , 07/10/10) Home Meds Active Scripts Hydrocodone-Acetaminophen (Hydrocodone Bitartrate/AC 10-325 mg) 1 Tab Tab, 1 TAB PO BID, #10 TAB Prov:UNA MARTE 05/15/25 Ibuprofen (Ibuprofen) 800 Mg Tab, 1 TAB PO TID, #20 TAB Prov:UNA MARTE 05/15/25 Hydrocodone-Acetaminophen (Hydrocodone Bitartrate/AC 5-325 mg) 1 Tab Tab, 1 TAB PO TID, #12 TAB Prov:UNA MARTE 05/07/25 Cyclobenzaprine Hcl (Cyclobenzaprine Hcl) 5 Mg Tab, 1 TAB PO QPM PRN, #14 TAB 0 Refills Prov:DARRYL RICO 10/02/22 Acetaminophen W/ Codeine (Tylenol W/Cod #3) 1 Tab Tb, 1 TAB PO QIDP, #10 TAB 0 Refills Prov:DARRYL RICO 10/02/22 Reported Medications Multivit-Min W/Fe-Fa (Mynatal) Cap 07/10/10 Home Meds Home medications reviewed. Current Medications Current Medications Medications (Trade) Dose Ordered Sig/Ese Route PRN Reason Start Time Stop Time Status Last Admin Norepinephrine Bitartrate 250 ml @ 3.75 mls/hr Q24H IV 09/04/25 02:00 09/04/25 05:56 Epinephrine HCl 250 ml @ 7.5 mls/hr Q24H IV 09/04/25 02:00 09/04/25 01:50 Dextrose 50 ml PRN PRN IV Blood Sugar LESS THAN 60 09/04/25 02:45 Dextrose 50 ml PRN PRN IV Blood Sugar LESS THAN 60 09/04/25 02:45 Diagnostic Test (Pha) (Accu-Chek Comfort Curve T) 1 strip ONCE STAT 09/04/25 02:32 09/04/25 02:33 DC 09/04/25 04:35 Midazolam HCl 100 ml @ 1 mls/hr Q24H IV 09/04/25 05:00 09/04/25 04:28 Dextrose 1,000 ml @ 50 mls/hr Q20H IV 09/04/25 05:15 09/04/25 05:15 Ibuprofen (MOTRIN 100MG/5 mL ORAL SUSP) 600 mg Q6HP PRN GT TEMP GREATER THAN 100.4 09/04/25 05:15 Ceftriaxone Sodium 50 ml @ 100 mls/hr DAILY@09 IV 09/05/25 09:00 Vancomycin HCl 0 ml @ 0 mls/hr PER PHARMACY IV 09/04/25 05:15 UNV Metronidazole 100 ml @ 100 mls/hr Q8HR IV 09/04/25 06:00 09/04/25 11:11 DC 09/04/25 10:21 Diagnostic Test (Pha) (Accu-Chek Comfort Curve T) 1 strip ACHS 09/04/25 07:00 09/04/25 07:12 Insulin Human Regular (InsuLIN R) ACHS SC 09/04/25 07:00 09/04/25 07:15 Dextrose 50 ml UD PRN IV Blood Sugar LESS THAN 60 09/04/25 05:15 Ondansetron HCl (Zofran) 4 mg Q4HP PRN IV NAUSEA / VOMITING 09/04/25 05:15 Nitroglycerin (Ntrostat Sublingual) 0.4 mg Q5MINP PRN SL FOR CHEST PAIN 09/04/25 05:15 Morphine Sulfate 2 mg Q30M PRN IV FOR CHEST PAIN 09/04/25 05:15 Norepinephrine Bitartrate 250 ml @ 3.75 mls/hr Q24H IV 09/04/25 05:45 09/04/25 05:37 DC Propofol 100 ml @ 1.95 mls/hr Q24H IV 09/04/25 08:45 09/04/25 09:30 Metronidazole 100 ml @ 100 mls/hr Q8HR IV 09/04/25 18:00 Review of Systems Constitutional: No symptom reported Ears, Nose, & Throat: No symptom reported Eyes: No symptom reported Neurological: Seizure-like activity Pulmonary/Respiratory: No symptom reported Cardiovascular: Cardiopulmonary arrest Gastrointestinal: No symptom reported Genitourinary: No symptom reported Musculoskeletal: No symptom reported Skin: No symptom reported Psychiatric: No symptom reported Endocrine: No symptom reported Hemotologic/Lymphatic: No symptom reported Vital Signs Vital Signs Date Time Temp Pulse Resp B/P (MAP) Pulse Ox O2 Delivery O2 Flow Rate FiO2 09/04/25 10:00 100 Mechanical Ventilator 09/04/25 10:00 50 50 09/04/25 09:30 112 40 102/31 (54) 09/04/25 07:30 98.8 98.8 09/04/25 04:31 50.0 Physical Exam General Appearance: Withdrawn. Chemically sedated. NSR. On single vasopressor Head Exam: Normal inspection Neck Exam: Normal inspection. Normal alignment Pulmonary/Respiratory: Clear bilateral breath sounds. Endotracheally intubated with 50% FiO2 peep 5.0 Cardiovascular/Chest: Regular rate and rhythm. S1, S2. NSR. No murmurs. No JVD. Peripheral Pulses: 2+ Radial (R). 2+ Radial (L). 2+ Pedal (R). 2+ Pedal (L) Abdominal Exam: Normal bowel sounds Ankle Exam: Negative ankle edema Lower extremities: Negative lower extremity edema Neuro/Mental Status: Chemically sedated. Withdrawn. Reactive bilateral pupil s. Intact cough reflex Thoughts/Psych: Unable to assess at this time Appearance: In no acute distress Skin Exam: Normal inspection. Pale color. Warm. Dry Labs/Diagnostic Data Labs Test 09/04/25 11:08 09/04/25 05:49 09/04/25 04:43 09/04/25 03:40 Range/Units Blood Gas Specimen Type Arterial Blood Gas Sample Site Left radial Blood Gas Patient Temperature 37.0 Arterial Blood Date Drawn [id number] Arterial Blood pH 7.403 7.350-7.450 Arterial Blood Partial Pressure CO2 27.3 L 32.0-45.0 mmHg Arterial Blood Partial Pressure O2 128.7 H 83.0-108.0 mmHg Arterial Blood HCO3 16.6 L 21.0-28.0 mmol/L Arterial Blood Oxygen Saturation 98.1 H 94.0-98.0 % Arterial Blood Base Excess -6.9 L -2.0-3.0 mmol/L Arterial Blood Oxyhemoglobin 97.7 94.0-98.0 % Arterial Blood Carboxyhemoglobin 0.3 L 0.5-1.5 % Arterial Blood Methemoglobin 0.1 0.0-1.5 % Fernando Test Modified Blood Gas Total Hemoglobin 10.70 L 12.0-16.0 g/dL Blood Gas Set Respiration Rate 18.0 Blood Gas Modality Vent - ac FiO2 % 50.0 Blood Gas Tidal Volume 450.0 Blood Gas PEEP or CPAP 5.0 White Blood Count 21.3 #H 4.4-10.8 10^3/uL Red Blood Count 4.12 4.0-5.20 10^6/uL Hemoglobin 8.3 #L 12.2-16.2 g/dL Hematocrit 29.5 #L 36.0-46.0 % Mean Corpuscular Volume 71.7 #L 80.0-100.0 fL Mean Corpuscular Hemoglobin 20.1 L 28.0-32.0 pg Mean Corpuscular Hemoglobin Concent 28.1 L 32.0-36.0 g/dL Red Cell Distribution Width 19.1 H 11.8-14.3 % Platelet Count 397 140-450 10^3/uL Mean Platelet Volume 9.4 6.9-10.8 fL Neutrophils (%) (Auto) 90.7 H 37.0-80.0 % Lymphocytes (%) (Auto) 6.5 L 10.0-50.0 % Monocytes (%) (Auto) 2.7 0.0-12.0 % Eosinophils (%) (Auto) 0.0 0.0-7.0 % Basophils (%) (Auto) 0.1 0.0-2.0 % Neutrophils # (Auto) 19.3 H 1.6-8.6 10 ^3/uL Lymphocytes # (Auto) 1.4 0.4-5.4 10 ^3/uL Monocytes # (Auto) 0.6 0-1.3 10 ^3/uL Eosinophils # (Auto) 0 0-0.8 10 ^3/uL Basophils # (Auto) 0 0-0.2 10 ^3/uL Nucleated Red Blood Cells 0.3 % Sodium Level 148 H 136-145 mmol/L Potassium Level 4.6 3.5-5.1 mmol/L Chloride Level 108 H 98-107 mmol/L Carbon Dioxide Level 10 L 20-31 mmol/L Anion Gap 30 H 5-15 Blood Urea Nitrogen 31 H 9-23 mg/dL Creatinine 2.68 H 0.550-1.02 mg/dL Glomerular Filtration Rate Calc 22 >90 mL/min BUN/Creatinine Ratio 11.6 10.0-20.0 Serum Glucose 294 H 74-106 mg/dL Calcium Level 8.1 L 8.7-10.4 mg/dL Total Bilirubin 0.5 0.2-1.0 mg/dL Aspartate Amino Transferase (AST) 4174 H 13-40 U/L Alanine Aminotransferase (ALT) 2179 H 7-40 U/L Alkaline Phosphatase 152 H 46-116 U/L Total Protein 5.6 L 5.7-8.2 g/dL Albumin 3.1 L 3.2-4.8 g/dL Troponin I High Sensitivity 8221 *H </=34 ng/L Blood Gas Critical Value Read Back Yes Blood Gas Notified Whom giovanny Flores Blood Gas Notified Time [id number] Blood Gas Notified By Rt rafia Murrell 09/04/25 03:39 09/04/25 03:14 09/04/25 03:10 09/04/25 02:32 Range/Units Lactic Acid Level 15.2 *H 0.4-2.0 mmol/L Urine Color Light-orange Yellow Urine Clarity Turbid H Clear Urine pH 5.5 5.0-9.0 Urine Specific [place] 1.015 1.001-1.035 Urine Protein 2+ H Negative Urine Ketones 1+ H Negative Urine Blood 3+ H Negative /uL Urine Nitrite Negative Negative Urine Bilirubin Negative Negative Urine Urobilinogen Normal Negative mg/dL Urine Leukocyte Esterase Negative Negative /uL Urine RBC 281 0 - 4 /hpf Urine Microscopic WBC 37 H 0-5 /HPF Urine Squamous Epithelial Cells Few <5 /hpf Urine Calcium Oxalate Crystals Few None Seen Urine Bacteria Few H None Seen /hpf Urine Hyaline Casts Many 0 - 2 /lpf Urine Mucus Few None Seen Urine Glucose Trace Normal mg/dL Urine Opiates Screen Neg NEGATIVE Urine Fentanyl Screen Neg NEGATIVE Urine Barbiturates Screen Neg NEGATIVE Urine Phencyclidine Screen Neg NEGATIVE Urine Amphetamines Screen Neg NEGATIVE Urine Benzodiazepines Screen Neg NEGATIVE Urine Cocaine Screen Neg NEGATIVE Urine Cannabinoids Screen Neg NEGATIVE Influenza Type A Antigen Negative Negative Influenza Type B Antigen Negative Negative SARS-CoV-2 Antigen (Rapid) Negative NEGATIVE Creatine Kinase 458 H 34-145 U/L Test 09/04/25 01:49 09/04/25 01:40 Range/Units Blood Gas Comments Prothrombin Time 17.4 H 9.3-11.8 sec Prothrombin Time INR 1.73 H 0.9-1.15 Magnesium Level 4.1 *H 1.6-2.6 mg/dL B-Type Natriuretic Peptide 8.48 0-100 pg/mL Lipase 31 12-53 U/L Thyroid Stimulating Hormone (TSH) 2.31 0.55-4.78 uIU/mL Plasma/Serum Blood Alcohol < 3.0 <10 mg/dL Assessment Cardiopulmonary arrest with ROSC Ventricular fibrillation arrest with defibrillation at 100J Non ST-elevation myocardial infarction Acute anemia status post blood transfusion Acute hypoxic respiratory failure Likely KIMI on CKD Left nephrectomy Shocked Liver Dyslipidemia, newly diagnosed ?Seizure activity * Transthoracic echocardiogram, pending at this time * Multiple 12 lead electrocardiograms x3: Sinus rhythm with peaked T-waves and no evidence of ST-T wave segment changes * Troponin levels peaked at 8,000s ng/L Plan/Recommendation (Dr. Mitchell) Plan: We will continue further cardiac evaluation with a transthoracic echocardiogram to evaluate cardiac function. The patient can benefit from an eventual cardiac catheterization and coronary angiogram to rule out coronary artery disease. In the meantime, continue hemodynamic support with vasopressors as needed. Obtain FOBT. Monitor H&H closely and transfuse as necessary. Continue Nephrology, pulmonology, and neurological recommendations. Monitor ECG changes closely and notify. Thank you for allowing us to participate in this patient's care. Please call if you have any questions or concerns. Critical care time: 50 minutes. This medical document was created using an electronic medical record system with voice recognition software and computerized dictation system. Although this document has been carefully reviewed, there might still be some phonetic and typographical errors. Occasional wrong-word or ``sound-alike substitutions may have occurred due to the inherent limitations of voice recognition software. These areas are purely typographical due to imperfections of the software programs and do not reflect any compromise in the patient's medical care. Please read the chart carefully and recognize, using context, where these substitutions have occurred. Plan discussed with: Patient, Other NYHA Physical activity limitations: NA Date of Service: Sep 04, 2025 Billing Provider: GAB GRANT Cardiology Common Codes: [id number] CARE 30-74 MIN GAB GRANT Sep 04, 2025 11:53
[2025-09-04 13:02] LABS: Alkaline Phosphatase 93 U/L (46-116); Anion Gap 21 (5-15); BUN/Creatinine Ratio 11.2 (10.0-20.0); Bilirubin, Total 0.4 mg/dL (0.2-1.0); Chloride 103 mmol/L (98-107); Sodium 140 mmol/L (136-145)
[2025-09-04 13:12] LABS: Albumin 2.7 g/dL (3.2-4.8); Blood Urea Nitrogen 30 mg/dL (9-23); Calcium 7.2 mg/dL (8.7-10.4); Carbon Dioxide 16 mmol/L (20-31); Glucose 503 mg/dL (74-106); Potassium 3.2 mmol/L (3.5-5.1); Total Protein 5.1 g/dL (5.7-8.2)
[2025-09-04] MEDS: SODIUM BICARB 50mEq/50ml Vial 50 ML in SOD CHL 0.45% 1,000 ML IV SCH (13:14)
[2025-09-04 13:17] LABS: Alanine Aminotransferase 2100 U/L (7-40)
[2025-09-04 13:28] LABS: Magnesium 2.5 mg/dL (1.6-2.6)
[2025-09-04 13:29] LABS: Cholesterol 86.0 mg/dL (< 200); Triglycerides 186.0 mg/dL (< 150)
[2025-09-04 13:32] LABS: HDL Cholesterol 25.0 mg/dL (40-59)
[2025-09-04] MEDS: POTASSIUM CHL 20MEQ/100ML 100 ML IV ONE (14:14)
[2025-09-04 14:27] LABS: Iron 48.0 ug/dL (50-170)
[2025-09-04 14:33] LABS: Total Iron Binding Capacity 243.0 ug/dL (250-425)
[2025-09-04 14:36] LABS: Protein, Urine 460.9 mg/dL (1-14)
--- NOTE | 2025-09-04 14:37 | DVH ---
CLINICAL HISTORY: KIMI TECHNIQUE: Complete ultrasound exam of the kidneys and bladder was performed. COMPARISON: None FINDINGS: The right kidney has normal echogenicity and measures 12.2 cm. There is a 2 mm stone. With no focal parenchymal abnormality. There is no hydronephrosis. The left kidney is surgically absent. The bladder is decompressed by Sams. IMPRESSION: Punctate nonobstructing right renal calculi. Left nephrectomy.
--- NOTE | 2025-09-04 15:34 | DVHINCON2 ---
Date of service: Sep 04, 2025 Referring Physician Roseann Reason for Consultation Seizure-like activity History of Present Illness Ms. Murillo is a 40 years old female with a history of kidney stone, depression, anxiety, she was brought to the [facility] on 09/04/2025 with a chief complaint of cardio pulmonary arrest, at this time, he is intubated, sedated, nonresponsive, the history is obtained from her The patient has developed fine and shaking all over her body, with eyes wide open, the event was about 1 minutes, but he is nonresponsive postictally, around 12:38 her and daughter noticed the patient did not have heartbeat and pulse, and they called 911 and started CPR, in about 5 minutes, a boat officer came over continuous CPR, in about 7-10 minutes, EMS came over, resuscitation was continued by EMS personnel, and the patient was successfully resuscitated around 0112. In the ER, the patient is noticed to have excessive extremity movement She had never had similar problem before, no history of stroke or seizure [phone] no answer Urinalysis, 09/04/2025: WBC: 37, urine leukocyte esterase: Negative UDS, 09/04/2025: Negative Plasma alcohol, 09/04/2025: <3 ABG, 09/10/2025: Metabolic acidosis WBC/HB/PLT/MCV, 09/04/2025: 8.8/6.4/260/79.8 PT/INR/ABG, 09/04/2025: 70.4/1.73/ Na, 09/04/2025: 151, 148, 140 K, 09/04/2025: 6.3, 4.6, 3.2 BUN/CR, 09/04/2025: 30/2.69 TBI/AST/ALT/AP, 09/04/2025: 0.11/2481/4030/74, 0.01/5737/2100/93 Glucose, 09/04/2025: 146, 294, 503 HGB A1c, 09/04/2025: 5 Lactic acid, 09/04/2025: 21.1, or 15.2 Troponin one high sensitivity, 09/04/2025: 2769, 5664, 7574 TG/HDL/LDL/HDL, 09/04/2025: 186/86/41/ Extremity venous study, 09/04/2025: NO SONOGRAPHIC EVIDENCE FOR DEEP VENOUS THROMBOSIS IN THE BILATERAL LOWER EXTREMITY VEINS CT head, 09/04/25: No acute intracranial abnormality (I saw evidence suggestive of early diffuse brain edema) Past Medical History Kidney stone, anxiety, depression Past Surgical History Arm and hip fracture repair Family History: Patient reports no known family medical history. Family History No major medical problems Social History She has not a tobacco smoke, no history of alcohol or recreational substance abuse Allergies: Coded Allergies: NO KNOWN ALLERGIES (Unverified , 07/10/10) Home Meds Active Scripts Hydrocodone-Acetaminophen (Hydrocodone Bitartrate/AC 10-325 mg) 1 Tab Tab, 1 TAB PO BID, #10 TAB Prov:UNA MARTE 05/15/25 Ibuprofen (Ibuprofen) 800 Mg Tab, 1 TAB PO TID, #20 TAB Prov:UNA MARTE 05/15/25 Hydrocodone-Acetaminophen (Hydrocodone Bitartrate/AC 5-325 mg) 1 Tab Tab, 1 TAB PO TID, #12 TAB Prov:UNA MARTE 05/07/25 Cyclobenzaprine Hcl (Cyclobenzaprine Hcl) 5 Mg Tab, 1 TAB PO QPM PRN, #14 TAB 0 Refills Prov:DARRYL RICO 10/02/22 Acetaminophen W/ Codeine (Tylenol W/Cod #3) 1 Tab Tb, 1 TAB PO QIDP, #10 TAB 0 Refills Prov:DARRYL RICO 10/02/22 Reported Medications Multivit-Min W/Fe-Fa (Mynatal) Cap 07/10/10 Current Medications Current Medications Medications (Trade) Dose Ordered Sig/Ese Route PRN Reason Start Time Stop Time Status Last Admin Norepinephrine Bitartrate 250 ml @ 3.75 mls/hr Q24H IV 09/04/25 02:00 09/04/25 05:56 Epinephrine HCl 250 ml @ 7.5 mls/hr Q24H IV 09/04/25 02:00 09/04/25 01:50 Dextrose 50 ml PRN PRN IV Blood Sugar LESS THAN 60 09/04/25 02:45 09/04/25 13:04 DC Dextrose 50 ml PRN PRN IV Blood Sugar LESS THAN 60 09/04/25 02:45 09/04/25 13:04 DC Diagnostic Test (Pha) (Accu-Chek Comfort Curve T) 1 strip ONCE STAT 09/04/25 02:32 09/04/25 02:33 DC 09/04/25 04:35 Midazolam HCl 100 ml @ 1 mls/hr Q24H IV 09/04/25 05:00 09/04/25 04:28 Dextrose 1,000 ml @ 50 mls/hr Q20H IV 09/04/25 05:15 09/04/25 12:49 DC 09/04/25 05:15 Ibuprofen (MOTRIN 100MG/5 mL ORAL SUSP) 600 mg Q6HP PRN GT TEMP GREATER THAN 100.4 09/04/25 05:15 09/04/25 13:20 DC Ceftriaxone Sodium 50 ml @ 100 mls/hr DAILY@09 IV 09/05/25 09:00 Vancomycin HCl 0 ml @ 0 mls/hr PER PHARMACY IV 09/04/25 05:15 UNV Metronidazole 100 ml @ 100 mls/hr Q8HR IV 09/04/25 06:00 09/04/25 11:11 DC 09/04/25 10:21 Diagnostic Test (Pha) (Accu-Chek Comfort Curve T) 1 strip ACHS 09/04/25 07:00 09/04/25 11:30 Insulin Human Regular (InsuLIN R) ACHS SC 09/04/25 07:00 09/04/25 13:13 Dextrose 50 ml UD PRN IV Blood Sugar LESS THAN 60 09/04/25 05:15 Ondansetron HCl (Zofran) 4 mg Q4HP PRN IV NAUSEA / VOMITING 09/04/25 05:15 Nitroglycerin (Ntrostat Sublingual) 0.4 mg Q5MINP PRN SL FOR CHEST PAIN 09/04/25 05:15 Morphine Sulfate 2 mg Q30M PRN IV FOR CHEST PAIN 09/04/25 05:15 Norepinephrine Bitartrate 250 ml @ 3.75 mls/hr Q24H IV 09/04/25 05:45 09/04/25 05:37 DC Propofol 100 ml @ 1.95 mls/hr Q24H IV 09/04/25 08:45 09/04/25 09:30 Metronidazole 100 ml @ 100 mls/hr Q8HR IV 09/04/25 18:00 Sodium Bicarbonate 50 ml/ Sodium Chloride 1,050 ml @ 150 mls/hr Q7H IV 09/04/25 12:45 09/04/25 13:14 Review of Systems As above, the other systems are negative Vital Signs Vital Signs Date Time Temp Pulse Resp B/P (MAP) Pulse Ox O2 Delivery O2 Flow Rate FiO2 09/04/25 15:00 97.5 95 18 113/60 (77) 100 97.5 09/04/25 14:14 45 09/04/25 13:35 Mechanical Ventilator+ 09/04/25 04:31 50.0 Physical Exam The patient is well-nourished and well-developed with no distress. The patient is intubated HEENT: Normocephalic, neck supple, no carotid bruits Lungs: Clear to auscultation Cardiovascular: Regular rate and region, S1, S2, no murmurs Abdomen: Soft, nontender, normal bowel sounds MENTAL STATUS: Not responsive to the surroundings, CRANIAL NERVES: Pupils are equal, round and with sluggish reactive, about 7 mm. There are no corneal reflexes and weak doll's eyes phenomenon. No signs of facial weakness. There are no gagging or coughing reflexes SENSATION: No responses to strong pain stimuli. MOTOR: Normal tone in the upper and lower extremity. Normal muscle bulk. No fasciculations. No spontaneous movement. REFLEXES: Deep tendon reflexes are symmetrical. No pathological reflexes. CEREBELLAR/COORDINATION: Deferred GAIT/STATION: deferred. Labs/Diagnostic Data Labs Test 09/04/25 13:46 09/04/25 12:34 09/04/25 11:45 09/04/25 11:08 Range/Units Urine Creatinine 85.45 30.0-125.0 mg/dL Urine Protein/Creatinine Ratio 5.39 Urine Sodium 52 40-220 mmol/L Urine Total Protein 460.9 H 1-14 mg/dL POC Glucose 446 *H 70-106 mg/dl Sodium Level 140 # 136-145 mmol/L Potassium Level 3.2 L 3.5-5.1 mmol/L Chloride Level 103 98-107 mmol/L Carbon Dioxide Level 16 L 20-31 mmol/L Anion Gap 21 H 5-15 Blood Urea Nitrogen 30 H 9-23 mg/dL Creatinine 2.69 H 0.550-1.02 mg/dL Glomerular Filtration Rate Calc 22 >90 mL/min BUN/Creatinine Ratio 11.2 10.0-20.0 Serum Glucose 503 *H 74-106 mg/dL Calcium Level 7.2 L 8.7-10.4 mg/dL Phosphorus Level 11.6 H 2.4-5.1 mg/dL Magnesium Level 2.5 # 1.6-2.6 mg/dL Iron Level 48 L 50-170 ug/dL Total Iron Binding Capacity 243 L 250-425 ug/dL Percent Iron Saturation 19.8 15-50 % Ferritin 33.5 10-291 ng/mL Total Bilirubin 0.4 0.2-1.0 mg/dL Aspartate Amino Transferase (AST) 5737 H 13-40 U/L Alanine Aminotransferase (ALT) 2100 H 7-40 U/L Alkaline Phosphatase 93 46-116 U/L Troponin I High Sensitivity 7574 *H </=34 ng/L Total Protein 5.1 L 5.7-8.2 g/dL Albumin 2.7 L 3.2-4.8 g/dL Triglycerides Level 186 H < 150 mg/dL Cholesterol Level 86 < 200 mg/dL LDL Cholesterol 41 < 100 mg/dL HDL Cholesterol 25 L 40-59 mg/dL Vitamin D 25-Hydroxy 37.5 30.0-100 ng/mL Parathyroid Hormone (Intact) 228.6 H 18.4-80.1 pg/mL Blood Gas Specimen Type Arterial Blood Gas Sample Site Left radial Blood Gas Patient Temperature 37.0 Arterial Blood Date Drawn [id number] Arterial Blood pH 7.403 7.350-7.450 Arterial Blood Partial Pressure CO2 27.3 L 32.0-45.0 mmHg Arterial Blood Partial Pressure O2 128.7 H 83.0-108.0 mmHg Arterial Blood HCO3 16.6 L 21.0-28.0 mmol/L Arterial Blood Oxygen Saturation 98.1 H 94.0-98.0 % Arterial Blood Base Excess -6.9 L -2.0-3.0 mmol/L Arterial Blood Oxyhemoglobin 97.7 94.0-98.0 % Arterial Blood Carboxyhemoglobin 0.3 L 0.5-1.5 % Arterial Blood Methemoglobin 0.1 0.0-1.5 % Fernando Test Modified Blood Gas Total Hemoglobin 10.70 L 12.0-16.0 g/dL Blood Gas Set Respiration Rate 18.0 Blood Gas Modality Vent - ac FiO2 % 50.0 Blood Gas Tidal Volume 450.0 Blood Gas PEEP or CPAP 5.0 Test 09/04/25 05:49 09/04/25 03:40 09/04/25 03:39 09/04/25 03:14 Range/Units White Blood Count 21.3 #H 4.4-10.8 10^3/uL Red Blood Count 4.12 4.0-5.20 10^6/uL Hemoglobin 8.3 #L 12.2-16.2 g/dL Hematocrit 29.5 #L 36.0-46.0 % Mean Corpuscular Volume 71.7 #L 80.0-100.0 fL Mean Corpuscular Hemoglobin 20.1 L 28.0-32.0 pg Mean Corpuscular Hemoglobin Concent 28.1 L 32.0-36.0 g/dL Red Cell Distribution Width 19.1 H 11.8-14.3 % Platelet Count 397 140-450 10^3/uL Mean Platelet Volume 9.4 6.9-10.8 fL Neutrophils (%) (Auto) 90.7 H 37.0-80.0 % Lymphocytes (%) (Auto) 6.5 L 10.0-50.0 % Monocytes (%) (Auto) 2.7 0.0-12.0 % Eosinophils (%) (Auto) 0.0 0.0-7.0 % Basophils (%) (Auto) 0.1 0.0-2.0 % Neutrophils # (Auto) 19.3 H 1.6-8.6 10 ^3/uL Lymphocytes # (Auto) 1.4 0.4-5.4 10 ^3/uL Monocytes # (Auto) 0.6 0-1.3 10 ^3/uL Eosinophils # (Auto) 0 0-0.8 10 ^3/uL Basophils # (Auto) 0 0-0.2 10 ^3/uL Nucleated Red Blood Cells 0.3 % Hemoglobin A1c 5.0 <5.7 % A1C Blood Gas Critical Value Read Back Yes Blood Gas Notified Whom giovanny Flores Blood Gas Notified Time [id number] Blood Gas Notified By Rt rafia rojas Lactic Acid Level 15.2 *H 0.4-2.0 mmol/L Urine Color Light-orange Yellow Urine Clarity Turbid H Clear Urine pH 5.5 5.0-9.0 Urine Specific [place] 1.015 1.001-1.035 Urine Protein 2+ H Negative Urine Ketones 1+ H Negative Urine Blood 3+ H Negative /uL Urine Nitrite Negative Negative Urine Bilirubin Negative Negative Urine Urobilinogen Normal Negative mg/dL Urine Leukocyte Esterase Negative Negative /uL Urine RBC 281 0 - 4 /hpf Urine Microscopic WBC 37 H 0-5 /HPF Urine Squamous Epithelial Cells Few <5 /hpf Urine Calcium Oxalate Crystals Few None Seen Urine Bacteria Few H None Seen /hpf Urine Hyaline Casts Many 0 - 2 /lpf Urine Mucus Few None Seen Urine Glucose Trace Normal mg/dL Urine Opiates Screen Neg NEGATIVE Urine Fentanyl Screen Neg NEGATIVE Urine Barbiturates Screen Neg NEGATIVE Urine Phencyclidine Screen Neg NEGATIVE Urine Amphetamines Screen Neg NEGATIVE Urine Benzodiazepines Screen Neg NEGATIVE Urine Cocaine Screen Neg NEGATIVE Urine Cannabinoids Screen Neg NEGATIVE Test 09/04/25 03:10 09/04/25 02:32 09/04/25 01:49 09/04/25 01:40 Range/Units Influenza Type A Antigen Negative Negative Influenza Type B Antigen Negative Negative SARS-CoV-2 Antigen (Rapid) Negative NEGATIVE Creatine Kinase 458 H 34-145 U/L Blood Gas Comments Prothrombin Time 17.4 H 9.3-11.8 sec Prothrombin Time INR 1.73 H 0.9-1.15 B-Type Natriuretic Peptide 8.48 0-100 pg/mL Lipase 31 12-53 U/L Thyroid Stimulating Hormone (TSH) 2.31 0.55-4.78 uIU/mL Plasma/Serum Blood Alcohol < 3.0 <10 mg/dL Microbiology Date/Time Source Procedure Growth Status 09/04/25 04:22 Sputum Expectorated Sputum Gram Stain - Final Resulted 09/04/25 04:22 Sputum Expectorated Sputum Respiratory Culture Pending Resulted Assessment Cardiopulmonary arrest Metabolic acidosis Acute respiratory failure Elevated troponin/heart attack Severe anemia Shocked liver Hypernatremia Plan/Recommendation Monitoring Supportive treatment ICU care Follow-up CT head Follow up labs Stabilize vitals/pressor drip Respiratory support/vent management Oxygen Antibiotics DVT prophylaxis GI prophylaxis More recommendation per clinical course Progress: Guarded Critical care time spent is 50 minutes This medical document was created using an electronic medical record system with [employer] dictation system. Although this document has been carefully reviewed, there may still be some phonetic and typographical errors. These areas are purely typographical due to imperfections of the software programs, and do not reflect any compromise in the patient's medical care. Plan discussed with: Spouse, Other ALEXIS DEL ANGEL MD Sep 04, 2025 15:33
--- NOTE | 2025-09-04 17:05 | DVHCONRES ---
Date Seen: Sep 04, 2025 Resident Creating Document: SANDRA OLVERA RESDIAGUSTÍN Reason for Consultation KIMI History of Present Illness This is a 40-year-old female with past medical history of panic attacks, depression in 2020, right hip surgery, and left shoulder repair 04/2025, who presented to the emergency room via EMS with a chief complaint of cardiopulmonary arrest. Information obtained from records and family at bedside including daughters x2 and has been. Family states the patient has been experiencing episodes of seizure-like activity during the past month and worsening during the past two weeks. Some of these events are associated with oral trauma and visual disturbances. The patient had seen a doctor in [place] and was diagnosed with anxiety for which he was placed on medication approximally six months ago. They report during this event the patient was uneasy, very anxious, with poor appetite and subsequent seizure-like activity followed by cardiopulmonary arrest for which called 911 and was instructed to initiate CPR until EMS arrival approximately 10 min after with the patient being intubated and ACLS protocol initiated including two rounds of epinephrine. There was reported ventricular fibrillation for which the patient was shocked at 100 J and subsequent ROSC. Family History: Patient reports no known family medical history. Allergies: Coded Allergies: NO KNOWN ALLERGIES (Unverified , 07/10/10) Home Meds Active Scripts Hydrocodone-Acetaminophen (Hydrocodone Bitartrate/AC 10-325 mg) 1 Tab Tab, 1 TAB PO BID, #10 TAB Prov:UNA MARTE 05/15/25 Ibuprofen (Ibuprofen) 800 Mg Tab, 1 TAB PO TID, #20 TAB Prov:UNA MARTE 05/15/25 Hydrocodone-Acetaminophen (Hydrocodone Bitartrate/AC 5-325 mg) 1 Tab Tab, 1 TAB PO TID, #12 TAB Prov:UNA MARTE 05/07/25 Cyclobenzaprine Hcl (Cyclobenzaprine Hcl) 5 Mg Tab, 1 TAB PO QPM PRN, #14 TAB 0 Refills Prov:DARRYL RICO 10/02/22 Acetaminophen W/ Codeine (Tylenol W/Cod #3) 1 Tab Tb, 1 TAB PO QIDP, #10 TAB 0 Refills Prov:DARRYL RICO 10/02/22 Reported Medications Multivit-Min W/Fe-Fa (Mynatal) Cap 07/10/10 Current Medications Current Medications Medications (Trade) Dose Ordered Sig/Ese Route PRN Reason Start Time Stop Time Status Last Admin Norepinephrine Bitartrate 250 ml @ 3.75 mls/hr Q24H IV 09/04/25 02:00 09/04/25 05:56 Epinephrine HCl 250 ml @ 7.5 mls/hr Q24H IV 09/04/25 02:00 09/04/25 01:50 Dextrose 50 ml PRN PRN IV Blood Sugar LESS THAN 60 09/04/25 02:45 09/04/25 13:04 DC Dextrose 50 ml PRN PRN IV Blood Sugar LESS THAN 60 09/04/25 02:45 09/04/25 13:04 DC Diagnostic Test (Pha) (Accu-Chek Comfort Curve T) 1 strip ONCE STAT 09/04/25 02:32 09/04/25 02:33 DC 09/04/25 04:35 Midazolam HCl 100 ml @ 1 mls/hr Q24H IV 09/04/25 05:00 09/04/25 04:28 Dextrose 1,000 ml @ 50 mls/hr Q20H IV 09/04/25 05:15 09/04/25 12:49 DC 09/04/25 05:15 Ibuprofen (MOTRIN 100MG/5 mL ORAL SUSP) 600 mg Q6HP PRN GT TEMP GREATER THAN 100.4 09/04/25 05:15 09/04/25 13:20 DC Ceftriaxone Sodium 50 ml @ 100 mls/hr DAILY@09 IV 09/05/25 09:00 Vancomycin HCl 0 ml @ 0 mls/hr PER PHARMACY IV 09/04/25 05:15 Metronidazole 100 ml @ 100 mls/hr Q8HR IV 09/04/25 06:00 09/04/25 11:11 DC 09/04/25 10:21 Diagnostic Test (Pha) (Accu-Chek Comfort Curve T) 1 strip ACHS 09/04/25 07:00 09/04/25 16:47 Insulin Human Regular (InsuLIN R) ACHS SC 09/04/25 07:00 09/04/25 16:47 Dextrose 50 ml UD PRN IV Blood Sugar LESS THAN 60 09/04/25 05:15 Ondansetron HCl (Zofran) 4 mg Q4HP PRN IV NAUSEA / VOMITING 09/04/25 05:15 Nitroglycerin (Ntrostat Sublingual) 0.4 mg Q5MINP PRN SL FOR CHEST PAIN 09/04/25 05:15 Morphine Sulfate 2 mg Q30M PRN IV FOR CHEST PAIN 09/04/25 05:15 Norepinephrine Bitartrate 250 ml @ 3.75 mls/hr Q24H IV 09/04/25 05:45 09/04/25 05:37 DC Propofol 100 ml @ 1.95 mls/hr Q24H IV 09/04/25 08:45 09/04/25 09:30 Metronidazole 100 ml @ 100 mls/hr Q8HR IV 09/04/25 18:00 09/04/25 16:47 Sodium Bicarbonate 50 ml/ Sodium Chloride 1,050 ml @ 150 mls/hr Q7H IV 09/04/25 12:45 09/04/25 13:14 Review of Systems Patient seen and examined at the bedside. Patient is sedated and on mechanical ventilation. Collateral history taken from the patient's sister and cousin at the bedside. Vital Signs Vital Signs Date Time Temp Pulse Resp B/P (MAP) Pulse Ox O2 Delivery O2 Flow Rate FiO2 09/04/25 16:30 83/47 09/04/25 16:22 99 18 99 45 09/04/25 15:51 Mechanical Ventilator+ 09/04/25 15:00 97.5 97.5 09/04/25 04:31 50.0 Physical Exam General Appearance: Alert, Oriented X3, Cooperative, No acute distress HEENT: Bilateral pupils are dilated, and nonreactive to the light Respiratory: Clear to auscultation, Normal air movement Cardiovascular: Regular rate, Normal S1, Normal S2, No murmurs, no chest wall tenderness Abdominal: Normal bowel sounds, Soft, No tenderness, No hepatospenomegaly, No masses Extremities: No clubbing, No cyanosis, No edema, Normal pulses, No tenderness/swelling Skin: No rashes, No breakdown, No significant lesion Neuro: Absent gag reflex Psych/Mental Status: Mental status NL, Mood NL Labs/Diagnostic Data Labs Test 09/04/25 16:27 09/04/25 13:46 09/04/25 11:45 09/04/25 11:08 Range/Units POC Glucose 283 H 70-106 mg/dl Urine Creatinine 85.45 30.0-125.0 mg/dL Urine Protein/Creatinine Ratio 5.39 Urine Sodium 52 40-220 mmol/L Urine Total Protein 460.9 H 1-14 mg/dL Sodium Level 140 # 136-145 mmol/L Potassium Level 3.2 L 3.5-5.1 mmol/L Chloride Level 103 98-107 mmol/L Carbon Dioxide Level 16 L 20-31 mmol/L Anion Gap 21 H 5-15 Blood Urea Nitrogen 30 H 9-23 mg/dL Creatinine 2.69 H 0.550-1.02 mg/dL Glomerular Filtration Rate Calc 22 >90 mL/min BUN/Creatinine Ratio 11.2 10.0-20.0 Serum Glucose 503 *H 74-106 mg/dL Calcium Level 7.2 L 8.7-10.4 mg/dL Phosphorus Level 11.6 H 2.4-5.1 mg/dL Magnesium Level 2.5 # 1.6-2.6 mg/dL Iron Level 48 L 50-170 ug/dL Total Iron Binding Capacity 243 L 250-425 ug/dL Percent Iron Saturation 19.8 15-50 % Ferritin 33.5 10-291 ng/mL Total Bilirubin 0.4 0.2-1.0 mg/dL Aspartate Amino Transferase (AST) 5737 H 13-40 U/L Alanine Aminotransferase (ALT) 2100 H 7-40 U/L Alkaline Phosphatase 93 46-116 U/L Troponin I High Sensitivity 7574 *H </=34 ng/L Total Protein 5.1 L 5.7-8.2 g/dL Albumin 2.7 L 3.2-4.8 g/dL Triglycerides Level 186 H < 150 mg/dL Cholesterol Level 86 < 200 mg/dL LDL Cholesterol 41 < 100 mg/dL HDL Cholesterol 25 L 40-59 mg/dL Vitamin D 25-Hydroxy 37.5 30.0-100 ng/mL Parathyroid Hormone (Intact) 228.6 H 18.4-80.1 pg/mL Blood Gas Specimen Type Arterial Blood Gas Sample Site Left radial Blood Gas Patient Temperature 37.0 Arterial Blood Date Drawn [id number] Arterial Blood pH 7.403 7.350-7.450 Arterial Blood Partial Pressure CO2 27.3 L 32.0-45.0 mmHg Arterial Blood Partial Pressure O2 128.7 H 83.0-108.0 mmHg Arterial Blood HCO3 16.6 L 21.0-28.0 mmol/L Arterial Blood Oxygen Saturation 98.1 H 94.0-98.0 % Arterial Blood Base Excess -6.9 L -2.0-3.0 mmol/L Arterial Blood Oxyhemoglobin 97.7 94.0-98.0 % Arterial Blood Carboxyhemoglobin 0.3 L 0.5-1.5 % Arterial Blood Methemoglobin 0.1 0.0-1.5 % Fernando Test Modified Blood Gas Total Hemoglobin 10.70 L 12.0-16.0 g/dL Blood Gas Set Respiration Rate 18.0 Blood Gas Modality Vent - ac FiO2 % 50.0 Blood Gas Tidal Volume 450.0 Blood Gas PEEP or CPAP 5.0 Test 09/04/25 05:49 09/04/25 03:40 09/04/25 03:39 09/04/25 03:14 Range/Units White Blood Count 21.3 #H 4.4-10.8 10^3/uL Red Blood Count 4.12 4.0-5.20 10^6/uL Hemoglobin 8.3 #L 12.2-16.2 g/dL Hematocrit 29.5 #L 36.0-46.0 % Mean Corpuscular Volume 71.7 #L 80.0-100.0 fL Mean Corpuscular Hemoglobin 20.1 L 28.0-32.0 pg Mean Corpuscular Hemoglobin Concent 28.1 L 32.0-36.0 g/dL Red Cell Distribution Width 19.1 H 11.8-14.3 % Platelet Count 397 140-450 10^3/uL Mean Platelet Volume 9.4 6.9-10.8 fL Neutrophils (%) (Auto) 90.7 H 37.0-80.0 % Lymphocytes (%) (Auto) 6.5 L 10.0-50.0 % Monocytes (%) (Auto) 2.7 0.0-12.0 % Eosinophils (%) (Auto) 0.0 0.0-7.0 % Basophils (%) (Auto) 0.1 0.0-2.0 % Neutrophils # (Auto) 19.3 H 1.6-8.6 10 ^3/uL Lymphocytes # (Auto) 1.4 0.4-5.4 10 ^3/uL Monocytes # (Auto) 0.6 0-1.3 10 ^3/uL Eosinophils # (Auto) 0 0-0.8 10 ^3/uL Basophils # (Auto) 0 0-0.2 10 ^3/uL Nucleated Red Blood Cells 0.3 % Hemoglobin A1c 5.0 <5.7 % A1C Blood Gas Critical Value Read Back Yes Blood Gas Notified Whom giovanny Flores Blood Gas Notified Time [id number] Blood Gas Notified By Rt rafia rojas Lactic Acid Level 15.2 *H 0.4-2.0 mmol/L Urine Color Light-orange Yellow Urine Clarity Turbid H Clear Urine pH 5.5 5.0-9.0 Urine Specific [place] 1.015 1.001-1.035 Urine Protein 2+ H Negative Urine Ketones 1+ H Negative Urine Blood 3+ H Negative /uL Urine Nitrite Negative Negative Urine Bilirubin Negative Negative Urine Urobilinogen Normal Negative mg/dL Urine Leukocyte Esterase Negative Negative /uL Urine RBC 281 0 - 4 /hpf Urine Microscopic WBC 37 H 0-5 /HPF Urine Squamous Epithelial Cells Few <5 /hpf Urine Calcium Oxalate Crystals Few None Seen Urine Bacteria Few H None Seen /hpf Urine Hyaline Casts Many 0 - 2 /lpf Urine Mucus Few None Seen Urine Glucose Trace Normal mg/dL Urine Opiates Screen Neg NEGATIVE Urine Fentanyl Screen Neg NEGATIVE Urine Barbiturates Screen Neg NEGATIVE Urine Phencyclidine Screen Neg NEGATIVE Urine Amphetamines Screen Neg NEGATIVE Urine Benzodiazepines Screen Neg NEGATIVE Urine Cocaine Screen Neg NEGATIVE Urine Cannabinoids Screen Neg NEGATIVE Test 09/04/25 03:10 09/04/25 02:32 09/04/25 01:49 09/04/25 01:40 Range/Units Influenza Type A Antigen Negative Negative Influenza Type B Antigen Negative Negative SARS-CoV-2 Antigen (Rapid) Negative NEGATIVE Creatine Kinase 458 H 34-145 U/L Blood Gas Comments Prothrombin Time 17.4 H 9.3-11.8 sec Prothrombin Time INR 1.73 H 0.9-1.15 B-Type Natriuretic Peptide 8.48 0-100 pg/mL Lipase 31 12-53 U/L Thyroid Stimulating Hormone (TSH) 2.31 0.55-4.78 uIU/mL Plasma/Serum Blood Alcohol < 3.0 <10 mg/dL Microbiology Date/Time Source Procedure Growth Status 09/04/25 04:22 Sputum Expectorated Sputum Gram Stain - Final Resulted 09/04/25 04:22 Sputum Expectorated Sputum Respiratory Culture Pending Resulted Assessment This is a 40-year-old female with past medical history of panic attacks, depression in 2020, right hip surgery, and left shoulder repair 0 04/2025, brought in by EMS, status post cardiac arrest at home. KIMI, (baseline record not available), due to cardiac arrest/hemodynamically mediated Hyperkalemia Metabolic acidosis Status post cardiac arrest, likely due to ischemic/coronary artery disease Cardiogenic/septic shock NSTEMI Anxiety and depression Plan/recommendation: (Dr. Acevedo) * IV 1/2 NS with 75 mEq bicarbonate at 100 mL/hour, continuous * IV Lasix 40 mg * Vasopressor per primary team * We will evaluate kidney function on daily basis, * Avoid nephrotoxic medication * Strict I&Os * We will follow up with the patient Thank you for giving us the opportunity to take care of your patient. Please call back if you have any questions/concerns. Addendum Patient seen and examined, plan discussed with resident. Agree with above, we will follow closely Plan discussed with: Patient, Other (Sister and cousin at the bedside and RN) SANDRA OLVERA Sep 04, 2025 17:05 PANCHO ACEVEDO MD Sep 04, 2025 18:05
[2025-09-04] MEDS: FUROSEMIDE 40 MG/4 ML VIAL IV ONE (17:15)
--- NOTE | 2025-09-04 19:14 | DVHINCON2 ---
Date of service: Sep 04, [address] Saldaña Reason for Consultation Abdominal liver enzymes status post CPR History of Present Illness This 40-year-old female presented with a history of anxiety UTIs kidney problems admitted with complaints of cardiac arrest in the emergency room patient apparently had a cardiac arrest at night and see PSA were initiated with the family and brought to the ER CPR was continued and the patient was intubated. Patient has got abnormal liver enzymes and hence the hemoglobin was also low 6.4 and hence the reason for GI consult. No gross GI bleeding. Past Surgical History None Family History: Patient reports no known family medical history. Family History Noncontributory Social History Unremarkable Allergies: Coded Allergies: NO KNOWN ALLERGIES (Unverified , 07/10/10) Home Meds Active Scripts Hydrocodone-Acetaminophen (Hydrocodone Bitartrate/AC 10-325 mg) 1 Tab Tab, 1 TAB PO BID, #10 TAB Prov:UNA MARTE 05/15/25 Ibuprofen (Ibuprofen) 800 Mg Tab, 1 TAB PO TID, #20 TAB Prov:UNA MARTE 05/15/25 Hydrocodone-Acetaminophen (Hydrocodone Bitartrate/AC 5-325 mg) 1 Tab Tab, 1 TAB PO TID, #12 TAB Prov:UNA MARTE 05/07/25 Cyclobenzaprine Hcl (Cyclobenzaprine Hcl) 5 Mg Tab, 1 TAB PO QPM PRN, #14 TAB 0 Refills Prov:DARRYL RICO 10/02/22 Acetaminophen W/ Codeine (Tylenol W/Cod #3) 1 Tab Tb, 1 TAB PO QIDP, #10 TAB 0 Refills Prov:DARRYL RICO 10/02/22 Reported Medications Multivit-Min W/Fe-Fa (Mynatal) Cap 07/10/10 Current Medications Current Medications Medications (Trade) Dose Ordered Sig/Ese Route PRN Reason Start Time Stop Time Status Last Admin Norepinephrine Bitartrate 250 ml @ 3.75 mls/hr Q24H IV 09/04/25 02:00 09/04/25 16:58 Epinephrine HCl 250 ml @ 7.5 mls/hr Q24H IV 09/04/25 02:00 09/04/25 01:50 Dextrose 50 ml PRN PRN IV Blood Sugar LESS THAN 60 09/04/25 02:45 09/04/25 13:04 DC Dextrose 50 ml PRN PRN IV Blood Sugar LESS THAN 60 09/04/25 02:45 09/04/25 13:04 DC Diagnostic Test (Pha) (Accu-Chek Comfort Curve T) 1 strip ONCE STAT 09/04/25 02:32 09/04/25 02:33 DC 09/04/25 04:35 Midazolam HCl 100 ml @ 1 mls/hr Q24H IV 09/04/25 05:00 09/04/25 04:28 Dextrose 1,000 ml @ 50 mls/hr Q20H IV 09/04/25 05:15 09/04/25 12:49 DC 09/04/25 05:15 Ibuprofen (MOTRIN 100MG/5 mL ORAL SUSP) 600 mg Q6HP PRN GT TEMP GREATER THAN 100.4 09/04/25 05:15 09/04/25 13:20 DC Ceftriaxone Sodium 50 ml @ 100 mls/hr DAILY@09 IV 09/05/25 09:00 Vancomycin HCl 0 ml @ 0 mls/hr PER PHARMACY IV 09/04/25 05:15 Metronidazole 100 ml @ 100 mls/hr Q8HR IV 09/04/25 06:00 09/04/25 11:11 DC 09/04/25 10:21 Diagnostic Test (Pha) (Accu-Chek Comfort Curve T) 1 strip ACHS 09/04/25 07:00 09/04/25 16:47 Insulin Human Regular (InsuLIN R) ACHS SC 09/04/25 07:00 09/04/25 16:47 Dextrose 50 ml UD PRN IV Blood Sugar LESS THAN 60 09/04/25 05:15 Ondansetron HCl (Zofran) 4 mg Q4HP PRN IV NAUSEA / VOMITING 09/04/25 05:15 Nitroglycerin (Ntrostat Sublingual) 0.4 mg Q5MINP PRN SL FOR CHEST PAIN 09/04/25 05:15 Morphine Sulfate 2 mg Q30M PRN IV FOR CHEST PAIN 09/04/25 05:15 Norepinephrine Bitartrate 250 ml @ 3.75 mls/hr Q24H IV 09/04/25 05:45 09/04/25 05:37 DC Propofol 100 ml @ 1.95 mls/hr Q24H IV 09/04/25 08:45 09/04/25 09:30 Metronidazole 100 ml @ 100 mls/hr Q8HR IV 09/04/25 18:00 09/04/25 16:47 Sodium Bicarbonate 50 ml/ Sodium Chloride 1,050 ml @ 150 mls/hr Q7H IV 09/04/25 12:45 09/04/25 17:20 DC 09/04/25 13:14 Furosemide (Lasix Injection) 40 mg DAILY IV 09/05/25 10:00 Sodium Bicarbonate 75 ml/ Sodium Chloride 1,075 ml @ 100 mls/hr [id number] IV 09/04/25 17:15 Review of Systems Unable to get details Vital Signs Vital Signs Date Time Temp Pulse Resp B/P (MAP) Pulse Ox O2 Delivery O2 Flow Rate FiO2 09/04/25 18:45 102 18 102/60 (74) 100 09/04/25 18:14 45 09/04/25 17:45 97.5 97.5 09/04/25 17:31 Mechanical Ventilator+ 09/04/25 04:31 50.0 Physical Exam Moderately built and nourished female in no acute distress Labs/Diagnostic Data Labs Test 09/04/25 18:19 09/04/25 17:06 09/04/25 17:05 09/04/25 16:27 Range/Units Potassium Level 3.5 3.5-5.1 mmol/L Random Vancomycin Level 41.8 *H 5-10 ug/mL Parathyroid Hormone (Intact) 300.3 H 18.4-80.1 pg/mL POC Glucose 283 H 70-106 mg/dl Test 09/04/25 13:46 09/04/25 11:45 09/04/25 11:08 09/04/25 05:49 Range/Units Urine Creatinine 85.45 30.0-125.0 mg/dL Urine Protein/Creatinine Ratio 5.39 Urine Sodium 52 40-220 mmol/L Urine Total Protein 460.9 H 1-14 mg/dL Sodium Level 140 # 136-145 mmol/L Chloride Level 103 98-107 mmol/L Carbon Dioxide Level 16 L 20-31 mmol/L Anion Gap 21 H 5-15 Blood Urea Nitrogen 30 H 9-23 mg/dL Creatinine 2.69 H 0.550-1.02 mg/dL Glomerular Filtration Rate Calc 22 >90 mL/min BUN/Creatinine Ratio 11.2 10.0-20.0 Serum Glucose 503 *H 74-106 mg/dL Calcium Level 7.2 L 8.7-10.4 mg/dL Phosphorus Level 11.6 H 2.4-5.1 mg/dL Magnesium Level 2.5 # 1.6-2.6 mg/dL Iron Level 48 L 50-170 ug/dL Total Iron Binding Capacity 243 L 250-425 ug/dL Percent Iron Saturation 19.8 15-50 % Ferritin 33.5 10-291 ng/mL Total Bilirubin 0.4 0.2-1.0 mg/dL Aspartate Amino Transferase (AST) 5737 H 13-40 U/L Alanine Aminotransferase (ALT) 2100 H 7-40 U/L Alkaline Phosphatase 93 46-116 U/L Troponin I High Sensitivity 7574 *H </=34 ng/L Total Protein 5.1 L 5.7-8.2 g/dL Albumin 2.7 L 3.2-4.8 g/dL Triglycerides Level 186 H < 150 mg/dL Cholesterol Level 86 < 200 mg/dL LDL Cholesterol 41 < 100 mg/dL HDL Cholesterol 25 L 40-59 mg/dL Vitamin D 25-Hydroxy 37.5 30.0-100 ng/mL Blood Gas Specimen Type Arterial Blood Gas Sample Site Left radial Blood Gas Patient Temperature 37.0 Arterial Blood Date Drawn [id number] Arterial Blood pH 7.403 7.350-7.450 Arterial Blood Partial Pressure CO2 27.3 L 32.0-45.0 mmHg Arterial Blood Partial Pressure O2 128.7 H 83.0-108.0 mmHg Arterial Blood HCO3 16.6 L 21.0-28.0 mmol/L Arterial Blood Oxygen Saturation 98.1 H 94.0-98.0 % Arterial Blood Base Excess -6.9 L -2.0-3.0 mmol/L Arterial Blood Oxyhemoglobin 97.7 94.0-98.0 % Arterial Blood Carboxyhemoglobin 0.3 L 0.5-1.5 % Arterial Blood Methemoglobin 0.1 0.0-1.5 % Fernando Test Modified Blood Gas Total Hemoglobin 10.70 L 12.0-16.0 g/dL Blood Gas Set Respiration Rate 18.0 Blood Gas Modality Vent - ac FiO2 % 50.0 Blood Gas Tidal Volume 450.0 Blood Gas PEEP or CPAP 5.0 White Blood Count 21.3 #H 4.4-10.8 10^3/uL Red Blood Count 4.12 4.0-5.20 10^6/uL Hemoglobin 8.3 #L 12.2-16.2 g/dL Hematocrit 29.5 #L 36.0-46.0 % Mean Corpuscular Volume 71.7 #L 80.0-100.0 fL Mean Corpuscular Hemoglobin 20.1 L 28.0-32.0 pg Mean Corpuscular Hemoglobin Concent 28.1 L 32.0-36.0 g/dL Red Cell Distribution Width 19.1 H 11.8-14.3 % Platelet Count 397 140-450 10^3/uL Mean Platelet Volume 9.4 6.9-10.8 fL Neutrophils (%) (Auto) 90.7 H 37.0-80.0 % Lymphocytes (%) (Auto) 6.5 L 10.0-50.0 % Monocytes (%) (Auto) 2.7 0.0-12.0 % Eosinophils (%) (Auto) 0.0 0.0-7.0 % Basophils (%) (Auto) 0.1 0.0-2.0 % Neutrophils # (Auto) 19.3 H 1.6-8.6 10 ^3/uL Lymphocytes # (Auto) 1.4 0.4-5.4 10 ^3/uL Monocytes # (Auto) 0.6 0-1.3 10 ^3/uL Eosinophils # (Auto) 0 0-0.8 10 ^3/uL Basophils # (Auto) 0 0-0.2 10 ^3/uL Nucleated Red Blood Cells 0.3 % Hemoglobin A1c 5.0 <5.7 % A1C Test 09/04/25 03:40 09/04/25 03:39 09/04/25 03:14 09/04/25 03:10 Range/Units Blood Gas Critical Value Read Back Yes Blood Gas Notified Whom giovanny Flores Blood Gas Notified Time [id number] Blood Gas Notified By Rt rafia rojas Lactic Acid Level 15.2 *H 0.4-2.0 mmol/L Urine Color Light-orange Yellow Urine Clarity Turbid H Clear Urine pH 5.5 5.0-9.0 Urine Specific [place] 1.015 1.001-1.035 Urine Protein 2+ H Negative Urine Ketones 1+ H Negative Urine Blood 3+ H Negative /uL Urine Nitrite Negative Negative Urine Bilirubin Negative Negative Urine Urobilinogen Normal Negative mg/dL Urine Leukocyte Esterase Negative Negative /uL Urine RBC 281 0 - 4 /hpf Urine Microscopic WBC 37 H 0-5 /HPF Urine Squamous Epithelial Cells Few <5 /hpf Urine Calcium Oxalate Crystals Few None Seen Urine Bacteria Few H None Seen /hpf Urine Hyaline Casts Many 0 - 2 /lpf Urine Mucus Few None Seen Urine Glucose Trace Normal mg/dL Urine Opiates Screen Neg NEGATIVE Urine Fentanyl Screen Neg NEGATIVE Urine Barbiturates Screen Neg NEGATIVE Urine Phencyclidine Screen Neg NEGATIVE Urine Amphetamines Screen Neg NEGATIVE Urine Benzodiazepines Screen Neg NEGATIVE Urine Cocaine Screen Neg NEGATIVE Urine Cannabinoids Screen Neg NEGATIVE Influenza Type A Antigen Negative Negative Influenza Type B Antigen Negative Negative SARS-CoV-2 Antigen (Rapid) Negative NEGATIVE Test 09/04/25 02:32 09/04/25 01:49 09/04/25 01:40 Range/Units Creatine Kinase 458 H 34-145 U/L Blood Gas Comments Prothrombin Time 17.4 H 9.3-11.8 sec Prothrombin Time INR 1.73 H 0.9-1.15 B-Type Natriuretic Peptide 8.48 0-100 pg/mL Lipase 31 12-53 U/L Thyroid Stimulating Hormone (TSH) 2.31 0.55-4.78 uIU/mL Plasma/Serum Blood Alcohol < 3.0 <10 mg/dL Microbiology Date/Time Source Procedure Growth Status 09/04/25 04:22 Sputum Expectorated Sputum Gram Stain - Final Resulted 09/04/25 04:22 Sputum Expectorated Sputum Respiratory Culture Pending Resulted Assessment 40-year-old female with anxiety status post cardiac arrest on intubated now with the abnormal liver enzymes increased INR No history of any chronic liver disease in the past Clinical impression Acute shock liver from hypotension and CPR possible ischemic hepatitis Possibility of a drug effect can not be excluded though no history of any drug abuse Plan/Recommendation We will recommend for any high drug abuse like Tylenol We will monitor closely the liver enzymes and INR and hemoglobin Her overall prognosis is guarded for now Plan discussed with: Patient, Other VLADIMIR SADLER MD Sep 04, 2025 19:14
[2025-09-04] MEDS: SODIUM BICARB 50mEq/50ml Vial 75 ML in SOD CHL 0.45% 1,000 ML IV SCH (20:03)
[2025-09-04] MEDS: ACCU-CHEK COMFORT CURVE STRIP VI ONE (21:18)
--- NOTE | 2025-09-04 21:43 | DVHINCON2 ---
Date Seen: Sep 04, 2025 Referring Physician MD Osiris Reason for Consultation Cardiopulmonary arrest History of Present Illness This is a 40-year-old female with a past medical history includes anxiety with panic attacks, depression in 2020, right hip surgery, and left shoulder repair 04/2025 who presented to the emergency room via EMS with a complaint of cardiopulmonary arrest. Information obtained from records and family at bedside including daughters x2 and has been. Family states the patient has been experiencing episodes of seizure-like activity during the past month and worsening during the past two weeks. Some of these events are associated with oral trauma and visual disturbances The patient had seen a doctor in [place] and was diagnosed with anxiety for which he was placed on medication approximally six months ago. They report during this event the patient was uneasy, very anxious, with poor appetite and subsequent seizure-like activity followed by cardiopulmonary arrest for which called 911 and was instructed to initiate CPR until EMS arrival approximately 10 min after with the patient being intubated and ACLS protocol initiated including two rounds of epinephrine. There was reported ventricular fibrillation for which the patient was shocked at 100 J and subsequent ROSC. Patient was admitted to the hospital. I am asked to consult on this patient. Past Medical History Past medical history reviewed. No other significant than mentioned above. Past Surgical History Left shoulder repair, 04/2025 Right hip surgery Family History: Patient reports no known family medical history. Allergies: Coded Allergies: NO KNOWN ALLERGIES (Unverified , 07/10/10) Home Meds Active Scripts Hydrocodone-Acetaminophen (Hydrocodone Bitartrate/AC 10-325 mg) 1 Tab Tab, 1 TAB PO BID, #10 TAB Prov:UNA MARTE 05/15/25 Ibuprofen (Ibuprofen) 800 Mg Tab, 1 TAB PO TID, #20 TAB Prov:UNA MARTE 05/15/25 Hydrocodone-Acetaminophen (Hydrocodone Bitartrate/AC 5-325 mg) 1 Tab Tab, 1 TAB PO TID, #12 TAB Prov:UNA MARTE 05/07/25 Cyclobenzaprine Hcl (Cyclobenzaprine Hcl) 5 Mg Tab, 1 TAB PO QPM PRN, #14 TAB 0 Refills Prov:DARRYL RICO 10/02/22 Acetaminophen W/ Codeine (Tylenol W/Cod #3) 1 Tab Tb, 1 TAB PO QIDP, #10 TAB 0 Refills Prov:DARRYL RICO 10/02/22 Reported Medications Multivit-Min W/Fe-Fa (Mynatal) Cap 07/10/10 Current Medications Current Medications Medications (Trade) Dose Ordered Sig/Ese Route PRN Reason Start Time Stop Time Status Last Admin Norepinephrine Bitartrate 250 ml @ 3.75 mls/hr Q24H IV 09/04/25 02:00 09/04/25 05:56 Epinephrine HCl 250 ml @ 7.5 mls/hr Q24H IV 09/04/25 02:00 09/04/25 01:50 Dextrose 50 ml PRN PRN IV Blood Sugar LESS THAN 60 09/04/25 02:45 09/04/25 13:04 DC Dextrose 50 ml PRN PRN IV Blood Sugar LESS THAN 60 09/04/25 02:45 09/04/25 13:04 DC Diagnostic Test (Pha) (Accu-Chek Comfort Curve T) 1 strip ONCE STAT 09/04/25 02:32 09/04/25 02:33 DC 09/04/25 04:35 Midazolam HCl 100 ml @ 1 mls/hr Q24H IV 09/04/25 05:00 09/04/25 04:28 Dextrose 1,000 ml @ 50 mls/hr Q20H IV 09/04/25 05:15 09/04/25 12:49 DC 09/04/25 05:15 Ibuprofen (MOTRIN 100MG/5 mL ORAL SUSP) 600 mg Q6HP PRN GT TEMP GREATER THAN 100.4 09/04/25 05:15 09/04/25 13:20 DC Ceftriaxone Sodium 50 ml @ 100 mls/hr DAILY@09 IV 09/05/25 09:00 Vancomycin HCl 0 ml @ 0 mls/hr PER PHARMACY IV 09/04/25 05:15 Metronidazole 100 ml @ 100 mls/hr Q8HR IV 09/04/25 06:00 09/04/25 11:11 DC 09/04/25 10:21 Diagnostic Test (Pha) (Accu-Chek Comfort Curve T) 1 strip ACHS 09/04/25 07:00 09/04/25 11:30 Insulin Human Regular (InsuLIN R) ACHS SC 09/04/25 07:00 09/04/25 13:13 Dextrose 50 ml UD PRN IV Blood Sugar LESS THAN 60 09/04/25 05:15 Ondansetron HCl (Zofran) 4 mg Q4HP PRN IV NAUSEA / VOMITING 09/04/25 05:15 Nitroglycerin (Ntrostat Sublingual) 0.4 mg Q5MINP PRN SL FOR CHEST PAIN 09/04/25 05:15 Morphine Sulfate 2 mg Q30M PRN IV FOR CHEST PAIN 09/04/25 05:15 Norepinephrine Bitartrate 250 ml @ 3.75 mls/hr Q24H IV 09/04/25 05:45 09/04/25 05:37 DC Propofol 100 ml @ 1.95 mls/hr Q24H IV 09/04/25 08:45 09/04/25 09:30 Metronidazole 100 ml @ 100 mls/hr Q8HR IV 09/04/25 18:00 Sodium Bicarbonate 50 ml/ Sodium Chloride 1,050 ml @ 150 mls/hr Q7H IV 09/04/25 12:45 09/04/25 13:14 Review of Systems Constitutional: No symptom reported Ears, Nose, & Throat: No symptom reported Eyes: No symptom reported Neurological: Seizure-like activity Pulmonary/Respiratory: No symptom reported Cardiovascular: Cardiopulmonary arrest Gastrointestinal: No symptom reported Genitourinary: No symptom reported Musculoskeletal: No symptom reported Skin: No symptom reported Psychiatric: No symptom reported Endocrine: No symptom reported Hemotologic/Lymphatic: No symptom reported Vital Signs Vital Signs Date Time Temp Pulse Resp B/P (MAP) Pulse Ox O2 Delivery O2 Flow Rate FiO2 09/04/25 16:00 65/34 09/04/25 15:51 98 09/04/25 15:51 45 09/04/25 15:51 18 99 Mechanical Ventilator+ 09/04/25 15:00 97.5 97.5 09/04/25 04:31 50.0 Physical Exam GENERAL: Ill appearing, intubated on ventilator. EYES: PERRL, EOMI. Anicteric. HENT: Moist mucous membranes. LUNGS: Decreased breath sounds. CARDIOVASCULAR: Regular rate and rhythm. ABDOMEN: Soft, nontender and nondistended. EXTREMITIES: No edema. SKIN: Warm, dry. Labs/Diagnostic Data Labs Test 09/04/25 13:46 09/04/25 12:34 09/04/25 11:45 09/04/25 11:08 Range/Units Urine Creatinine 85.45 30.0-125.0 mg/dL Urine Protein/Creatinine Ratio 5.39 Urine Sodium 52 40-220 mmol/L Urine Total Protein 460.9 H 1-14 mg/dL POC Glucose 446 *H 70-106 mg/dl Sodium Level 140 # 136-145 mmol/L Potassium Level 3.2 L 3.5-5.1 mmol/L Chloride Level 103 98-107 mmol/L Carbon Dioxide Level 16 L 20-31 mmol/L Anion Gap 21 H 5-15 Blood Urea Nitrogen 30 H 9-23 mg/dL Creatinine 2.69 H 0.550-1.02 mg/dL Glomerular Filtration Rate Calc 22 >90 mL/min BUN/Creatinine Ratio 11.2 10.0-20.0 Serum Glucose 503 *H 74-106 mg/dL Calcium Level 7.2 L 8.7-10.4 mg/dL Phosphorus Level 11.6 H 2.4-5.1 mg/dL Magnesium Level 2.5 # 1.6-2.6 mg/dL Iron Level 48 L 50-170 ug/dL Total Iron Binding Capacity 243 L 250-425 ug/dL Percent Iron Saturation 19.8 15-50 % Ferritin 33.5 10-291 ng/mL Total Bilirubin 0.4 0.2-1.0 mg/dL Aspartate Amino Transferase (AST) 5737 H 13-40 U/L Alanine Aminotransferase (ALT) 2100 H 7-40 U/L Alkaline Phosphatase 93 46-116 U/L Troponin I High Sensitivity 7574 *H </=34 ng/L Total Protein 5.1 L 5.7-8.2 g/dL Albumin 2.7 L 3.2-4.8 g/dL Triglycerides Level 186 H < 150 mg/dL Cholesterol Level 86 < 200 mg/dL LDL Cholesterol 41 < 100 mg/dL HDL Cholesterol 25 L 40-59 mg/dL Vitamin D 25-Hydroxy 37.5 30.0-100 ng/mL Parathyroid Hormone (Intact) 228.6 H 18.4-80.1 pg/mL Blood Gas Specimen Type Arterial Blood Gas Sample Site Left radial Blood Gas Patient Temperature 37.0 Arterial Blood Date Drawn [id number] Arterial Blood pH 7.403 7.350-7.450 Arterial Blood Partial Pressure CO2 27.3 L 32.0-45.0 mmHg Arterial Blood Partial Pressure O2 128.7 H 83.0-108.0 mmHg Arterial Blood HCO3 16.6 L 21.0-28.0 mmol/L Arterial Blood Oxygen Saturation 98.1 H 94.0-98.0 % Arterial Blood Base Excess -6.9 L -2.0-3.0 mmol/L Arterial Blood Oxyhemoglobin 97.7 94.0-98.0 % Arterial Blood Carboxyhemoglobin 0.3 L 0.5-1.5 % Arterial Blood Methemoglobin 0.1 0.0-1.5 % Fernando Test Modified Blood Gas Total Hemoglobin 10.70 L 12.0-16.0 g/dL Blood Gas Set Respiration Rate 18.0 Blood Gas Modality Vent - ac FiO2 % 50.0 Blood Gas Tidal Volume 450.0 Blood Gas PEEP or CPAP 5.0 Test 09/04/25 05:49 09/04/25 03:40 09/04/25 03:39 09/04/25 03:14 Range/Units White Blood Count 21.3 #H 4.4-10.8 10^3/uL Red Blood Count 4.12 4.0-5.20 10^6/uL Hemoglobin 8.3 #L 12.2-16.2 g/dL Hematocrit 29.5 #L 36.0-46.0 % Mean Corpuscular Volume 71.7 #L 80.0-100.0 fL Mean Corpuscular Hemoglobin 20.1 L 28.0-32.0 pg Mean Corpuscular Hemoglobin Concent 28.1 L 32.0-36.0 g/dL Red Cell Distribution Width 19.1 H 11.8-14.3 % Platelet Count 397 140-450 10^3/uL Mean Platelet Volume 9.4 6.9-10.8 fL Neutrophils (%) (Auto) 90.7 H 37.0-80.0 % Lymphocytes (%) (Auto) 6.5 L 10.0-50.0 % Monocytes (%) (Auto) 2.7 0.0-12.0 % Eosinophils (%) (Auto) 0.0 0.0-7.0 % Basophils (%) (Auto) 0.1 0.0-2.0 % Neutrophils # (Auto) 19.3 H 1.6-8.6 10 ^3/uL Lymphocytes # (Auto) 1.4 0.4-5.4 10 ^3/uL Monocytes # (Auto) 0.6 0-1.3 10 ^3/uL Eosinophils # (Auto) 0 0-0.8 10 ^3/uL Basophils # (Auto) 0 0-0.2 10 ^3/uL Nucleated Red Blood Cells 0.3 % Hemoglobin A1c 5.0 <5.7 % A1C Blood Gas Critical Value Read Back Yes Blood Gas Notified Whom giovanny Flores Blood Gas Notified Time [id number] Blood Gas Notified By Rt rafia crystal Lactic Acid Level 15.2 *H 0.4-2.0 mmol/L Urine Color Light-orange Yellow Urine Clarity Turbid H Clear Urine pH 5.5 5.0-9.0 Urine Specific [place] 1.015 1.001-1.035 Urine Protein 2+ H Negative Urine Ketones 1+ H Negative Urine Blood 3+ H Negative /uL Urine Nitrite Negative Negative Urine Bilirubin Negative Negative Urine Urobilinogen Normal Negative mg/dL Urine Leukocyte Esterase Negative Negative /uL Urine RBC 281 0 - 4 /hpf Urine Microscopic WBC 37 H 0-5 /HPF Urine Squamous Epithelial Cells Few <5 /hpf Urine Calcium Oxalate Crystals Few None Seen Urine Bacteria Few H None Seen /hpf Urine Hyaline Casts Many 0 - 2 /lpf Urine Mucus Few None Seen Urine Glucose Trace Normal mg/dL Urine Opiates Screen Neg NEGATIVE Urine Fentanyl Screen Neg NEGATIVE Urine Barbiturates Screen Neg NEGATIVE Urine Phencyclidine Screen Neg NEGATIVE Urine Amphetamines Screen Neg NEGATIVE Urine Benzodiazepines Screen Neg NEGATIVE Urine Cocaine Screen Neg NEGATIVE Urine Cannabinoids Screen Neg NEGATIVE Test 09/04/25 03:10 09/04/25 02:32 09/04/25 01:49 09/04/25 01:40 Range/Units Influenza Type A Antigen Negative Negative Influenza Type B Antigen Negative Negative SARS-CoV-2 Antigen (Rapid) Negative NEGATIVE Creatine Kinase 458 H 34-145 U/L Blood Gas Comments Prothrombin Time 17.4 H 9.3-11.8 sec Prothrombin Time INR 1.73 H 0.9-1.15 B-Type Natriuretic Peptide 8.48 0-100 pg/mL Lipase 31 12-53 U/L Thyroid Stimulating Hormone (TSH) 2.31 0.55-4.78 uIU/mL Plasma/Serum Blood Alcohol < 3.0 <10 mg/dL Microbiology Date/Time Source Procedure Growth Status 09/04/25 04:22 Sputum Expectorated Sputum Gram Stain - Final Resulted 09/04/25 04:22 Sputum Expectorated Sputum Respiratory Culture Pending Resulted Assessment Cardiopulmonary arrest with ROSC. Ventricular fibrillation arrest with defibrillation at 100J. Non ST-elevation myocardial infarction. Acute anemia status post blood transfusion. Acute hypoxic respiratory failure. Likely KIMI on CKD. Left nephrectomy. Shocked Liver. Dyslipidemia, newly diagnosed. ?Seizure activity. Plan/Recommendation I agree with your ongoing assessment and care of plan. Patient has been seen by Roseann Delatorre NP on my behalf, her/him and I discussed the plan with the patient. Transthoracic echocardiogram, pending at this time. Multiple 12 lead electrocardiograms x3: Sinus rhythm with peaked T-waves and no evidence of ST-T wave segment changes. Troponin levels peaked at 8,000s ng/L. We will continue further cardiac evaluation with a transthoracic echocardiogram to evaluate cardiac function. The patient can benefit from an eventual cardiac catheterization and coronary a ngiogram to rule out coronary artery disease. In the meantime, continue hemodynamic support with vasopressors as needed. Obtain FOBT. Monitor H&H closely and transfuse as necessary. Continue Nephrology, pulmonology, and neurological recommendations. Monitor ECG changes closely and notify. Additional plan as per the hospital course. Plan discussed with: Other NYHA Physical activity limitations: NA Date of Service: Sep 04, 2025 Billing Provider: RISHI SOARES MD Cardiology Common Codes: [id number] INP/OBS CARE (High), [id number] CARE 30-74 MIN, [id number] CARE-EACH +30MIN RISHI SOARES MD Sep 04, 2025 16:13
[2025-09-05] VITALS (112 sets, daily range): BP systolic 85–125; BP diastolic 40–82; PULSE 78–108; RESP 12–25; TEMP 97–98.1; O2SAT 95–100
[2025-09-05 04:42] LABS: Hematocrit 30.7 % (36.0-46.0); Hemoglobin 10.0 g/dL (12.2-16.2); Mean Corpuscular Hemoglobin 21.8 pg (28.0-32.0); Mean Corpuscular Volume 67.2 fL (80.0-100.0); Nucleated Red Blood Cells % 0.0 %
[2025-09-05 05:02] LABS: Alkaline Phosphatase 87 U/L (46-116); Anion Gap 15 (5-15); BUN/Creatinine Ratio 12.4 (10.0-20.0); Carbon Dioxide 25 mmol/L (20-31); Chloride 100 mmol/L (98-107); Magnesium 1.9 mg/dL (1.6-2.6); Sodium 140 mmol/L (136-145)
[2025-09-05 05:03] LABS: Bilirubin, Direct 0.2 mg/dL (<0.3); Bilirubin, Total 0.4 mg/dL (0.2-1.0)
[2025-09-05 05:07] LABS: Albumin 2.6 g/dL (3.2-4.8); Blood Urea Nitrogen 36 mg/dL (9-23); Calcium 7.4 mg/dL (8.7-10.4); Glucose 121 mg/dL (74-106); Potassium 3.1 mmol/L (3.5-5.1); Total Protein 4.7 g/dL (5.7-8.2)
[2025-09-05 05:19] LABS: Alanine Aminotransferase 1704 U/L (7-40)
--- NOTE | 2025-09-05 05:36 | DVH ---
CHEST RADIOGRAPH Indication: intubated Technique: 1 view Comparison: XY CHEST XRAY 1 VIEW on DOS: 09/04/25 FINDINGS: Lines and Tubes: Retracted endotracheal tube now 4.7 cm above the osmel. Unchanged enteric tube. Lungs/Pleura: Unchanged. Cardiomediastinum: Unchanged. Other: Unchanged osseous structures. IMPRESSION: 1. Retracted, now adequately positioned endotracheal tube. Unchanged enteric tube. 2. No other significant change from the previous study. Hazy bilateral infrahilar opacities suggesting mild atelectasis.
[2025-09-05] MEDS: POTASSIUM CHL 20MEQ/100ML 100 ML IV ONE (06:23)
[2025-09-05 06:54] LABS: Base Excess 2.1 mmol/L (-2.0-3.0)
[2025-09-05] MEDS: FUROSEMIDE 40 MG/4 ML VIAL IV SCH (07:22)
--- NOTE | 2025-09-05 08:59 | DVH ---
EXAM: CT HEAD WITHOUT CONTRAST INDICATION: ALOC TECHNIQUE: CT of the head without intravenous contrast. Radiation Dose : 1. Head: CT Dose: CTDI volume is 48.66 mGy. Dose-length product is 682.94 mGy*cm The dose indicators for CT are the volume Computed Tomography (CT) Dose Index (CTDIvol) and the Dose Length Product (DLP), and are measured in units of mGy and mGy-cm, respectively. These indicators are not patient dose, but values generated from the CT scanner acquisition factors. The report includes radiation exposure data for exposures received during this examination. COMPARISON: CT HEAD WITHOUT CONTRAST on DOS: 09/04/25 FINDINGS: There is no evidence of acute intracranial hemorrhage. There is diffuse severe loss of lozoya-white matter differentiation consistent with severe diffuse cerebral and cerebellar edema. There is diffuse symmetric mass effect on the lateral ventricles and effacement of the basal cisterns. Moderate opacification of the bilateral mastoid air cells. IMPRESSION: Findings are consistent with severe diffuse cerebral and cerebellar edema possibly representing anoxic brain injury. Critical Result: Stroke Alert Findings discussed with Ann TIPTON RN at 09/05/2025 08:56 AM, and acknowledged receipt and understanding of the findings. Radiation optimization: All CT scans at this facility use at least one of these dose optimization techniques: automated exposure control mA and/or kV adjustment per patient size (includes targeted exams where dose is matched to clinical indication) or iterative reconstruction.
--- NOTE | 2025-09-05 11:52 | DVHPNRES ---
Progress Note Date Seen: Sep 05, 2025 Resident Creating Document: ROMÁN KELLER RESIDENT Medical Necessity Reason Pt with a Central, PICC or Fol: Yes The following are medically ne: Central Line, Sams Catheter Subjective Review of Systems History of Present Illness The patient is a 40-year-old female with past medical history of anxiety, UTIs, and kidney stones who presented to [facility] ED for evaluation of cardiac arrest. As reported by EMS/family, patient had cardiac arrest, was asystole 1238 a.m., CPR initiated by family. Patient was initially anxious but was not having any complaints like chest pain or shortness of breath. EMS were on the scene within 5 minutes, CPR continued, patient was given IV fluid, epinephrine x2, became VFib so patient was shocked at 100 joules, Narcan given, became asystole again upon arrival at ER at 0108 hours, blood sugar upon arrival was 43, ROSC obtained at 0112 a.m. Family also reports that patient was depressed for the past 5 years, she has been staying in bed with decreased oral intake, had a fall injury in April resulting in arm and hip fracture. They denied any other significant past medical history. Patient was seen and evaluated in the ED, laboratory data shows WBC 8.8, hemoglobin 6.4, hematocrit 25.0, platelets 260, sodium 151, potassium 6.3, BUN 29, creatinine 2.52, GFR 24, glucose 146, anion gap 28.001, calcium 7.9, lactic acid 21.1 trending down to 15.2, magnesium 4.1, AST 2482, ALT 1430, troponin 2769, BNP 8.48, lipase 31, protein 4.8, albumin 2.7, blood pressure 151/22 trending up to 107/30, heart rate 106, temperature 94.2 F, O2 saturation 97% on ventilator. Head CT showed no acute intracranial abnormality. Patient was started on IV antibiotic regimen vancomycin, please see medication orders section in the computer. On my assessment, patient remains fully intubated, no diaphoresis, no diarrhea, vomiting, no fever. Patient was admitted for further evaluation and medical management. Past Medical History Anxiety, Kidney Stones, UTI'S Past Surgical History Unobtainable Family History Unobtainable Past Social History The patient lives at home, no history of smoking, alcohol or illicit drugs abuse on file. Interval events Pt is currently sedated and int[facility]ated [facility] Head CT done Objective vital signs Vital Sign Date Time Temp Pulse Resp B/P (MAP) Pulse Ox O2 Delivery O2 Flow Rate FiO2 09/05/25 11:00 93 12 94/53 (67) 96 09/05/25 09:43 30 09/05/25 09:36 Mechanical Ventilator+ 09/05/25 07:30 98.1 98.1 09/04/25 04:31 50.0 Total Intake and Output 09/04/25 09/04/25 09/05/25 15:00 23:00 07:00 Intake Total 2343.45 ml 1441.15 ml 1104.90 ml Output Total 25 ml 250 ml 190 ml Balance 2318.45 ml 1191.15 ml 914.90 ml medications Current Medications Medications Dose Ordered Sig/Ese Route Start Time Stop Time Status Last Admin Dose Admin Norepinephrine Bitartrate 250 ml @ 3.75 mls/hr Q24H IV 09/04/25 02:00 09/05/25 01:22 26.25 MLS/HR Epinephrine HCl 250 ml @ 7.5 mls/hr Q24H IV 09/04/25 02:00 09/04/25 01:50 7.5 MLS/HR Midazolam HCl 100 ml @ 1 mls/hr Q24H IV 09/04/25 05:00 09/04/25 04:28 1 MLS/HR Ceftriaxone Sodium 50 ml @ 100 mls/hr DAILY@09 IV 09/05/25 09:00 09/05/25 07:22 100 MLS/HR Vancomycin HCl 0 ml @ 0 mls/hr PER PHARMACY IV 09/04/25 05:15 Diagnostic Test (Pha) 1 strip ACHS 09/04/25 07:00 09/05/25 10:54 1 STRIP Insulin Human Regular ACHS SC 09/04/25 07:00 09/05/25 10:55 2 UNITS Dextrose 50 ml UD PRN IV 09/04/25 05:15 Ondansetron HCl 4 mg Q4HP PRN IV 09/04/25 05:15 Nitroglycerin 0.4 mg Q5MINP PRN SL 09/04/25 05:15 Morphine Sulfate 2 mg Q30M PRN IV 09/04/25 05:15 Propofol 100 ml @ 1.95 mls/hr Q24H IV 09/04/25 08:45 09/05/25 02:30 1.95 MLS/HR Metronidazole 100 ml @ 100 mls/hr Q8HR IV 09/04/25 18:00 09/05/25 05:04 100 MLS/HR Furosemide 40 mg DAILY IV 09/05/25 10:00 09/05/25 07:22 40 MG Sodium Bicarbonate 75 ml/ Sodium Chloride 1,075 ml @ 100 mls/hr [id number] IV 09/04/25 17:15 09/05/25 06:29 100 MLS/HR Examination Examination General Appearance: Sedated and intubated HEENT: EOMI Respiratory: Clear to auscultation, Normal air movement Cardiovascular: Regular rate, Normal S1, Normal S2 Abdominal: Normal bowel sounds Extremities: No cyanosis, No edema, Normal pulses, No tenderness/swelling Skin: No rashes, No breakdown Neuro: Sedated and intubated laboratory and microbiology Laboratory Tests 09/05/25 04:00 Test 09/05/25 04:00 Range/Units Serum Glucose 121 H 74-106 mg/dL Microbiology Date/Time Source Procedure Growth Status 09/04/25 04:22 Sputum Expectorated Sputum Gram Stain - Final Resulted 09/04/25 04:22 Sputum Expectorated Sputum Respiratory Culture - Preliminary Resulted 09/04/25 01:40 Blood Blood Culture - Preliminary NO GROWTH AFTER 24 HOURS OF INCUBATION. Resulted Labs and/or images reviewed: Labs reviewed by me, Image(s) reviewed by me Problem List/Assessment/Plan Problem List/Assessment/Plan Assessment/plan Neurology/Psychiatry # Sedation -off sedation # History of anxiety # ?Seizure like activity -neurology on board # anoxic brain injury seen on CT likely due to cardiac arrest Neurology on board Cardiology # Cardiac arrest s/p ROSC # heart failure with reduced ejection fraction likely post cardiac arrest # Dyslipidemia # Non ST-elevation myocardial infarction likely type 2 status post cardiac arrest, type 1 not ruled out -head CT -ekg -echo : Conclusion MODERATELY DILATED RV AND IS HYPOKINETIC DYSKINESIS OF IVS RVSP IS 40 MM OF HG AND IS HIGH STUDY CONFIRM RV FAILURE GLOBAL LV HYPOKINESIS LV EF IS 40% AND IS REDUCED NORMAL VALVES NO EFFUSION -cardiology on board # shock likely cardiogenic/septic Currently on norepinephrine Respiratory # Acute hypoxic Resp failure, [facility] decrease RR to 12, TV 450, PEEP of 5, FiO2 30% Hematology oncology # severe anemia requiring blood transfusion -1 unit of PRBC transfused # coagulopathy likely due to sepsis Monitor Infectious disease # sepsis with septic shock ? Aspiration pneumonia ? Urinary tract infection Currently on norepinephrine On vancomycin ceftriaxone, we will start azithromycin Nephrology # KIMI due to cardiac arrest/hemodynamically mediated Monitor CMP IV Lasix ordered by Nephrology Bicarb drip was discontinued # hyperkalemia Corrected # hypernatremia -initially corrected with a half NS # metabolic acidosis due to sepsis Monitor ABG # respiratory alkalosis Decrease respiratory rate to 12 # hypomagnesemia Monitor Urology # complicated urinary tract infection -on antibiotics # Punctate nonobstructing right renal calculi. Seen on ultrasound # Left nephrectomy. Seen on ultrasound GI # PUD prophylaxis Protonix #Shocked Liver -likely post cardiac arrest DVT prophylaxis lovenox on hold because of low Hb Lines left femoral Triple lumen cath Critical time excluding procedures > 77 minutes Code status discussed with the family for >21 min, Full Code Family at bedside, discussed about about the anoxic brain injury and poor prognosis Case discussion with Dr Salcido Plan discussed with: Spouse, Daughter, Other CC Plasma Assessment Blood Product Administration S: [id number] ROMÁN KELLER RESIDENT Sep 05, 2025 11:52
--- NOTE | 2025-09-05 13:54 | DVHPN2 ---
Consult Progress Note Subjective Review of Systems: Not Done (intubated) Objective vital signs Vital Sign Date Time Temp Pulse Resp B/P (MAP) Pulse Ox O2 Delivery O2 Flow Rate FiO2 09/05/25 13:41 12 97 Mechanical Ventilator+ 30 30 09/05/25 13:41 85 09/05/25 13:33 96/60 (72) 09/05/25 12:00 97.5 97.5 09/04/25 04:31 50.0 Total Intake and Output 09/04/25 09/04/25 09/05/25 15:00 23:00 07:00 Intake Total 2343.45 ml 1441.15 ml 1104.90 ml Output Total 25 ml 250 ml 190 ml Balance 2318.45 ml 1191.15 ml 914.90 ml medications Current Medications Medications Dose Ordered Sig/Ese Route Start Time Stop Time Status Last Admin Dose Admin Norepinephrine Bitartrate 250 ml @ 3.75 mls/hr Q24H IV 09/04/25 02:00 09/05/25 01:22 26.25 MLS/HR Epinephrine HCl 250 ml @ 7.5 mls/hr Q24H IV 09/04/25 02:00 09/04/25 01:50 7.5 MLS/HR Midazolam HCl 100 ml @ 1 mls/hr Q24H IV 09/04/25 05:00 09/04/25 04:28 1 MLS/HR Ceftriaxone Sodium 50 ml @ 100 mls/hr DAILY@09 IV 09/05/25 09:00 09/05/25 07:22 100 MLS/HR Vancomycin HCl 0 ml @ 0 mls/hr PER PHARMACY IV 09/04/25 05:15 Diagnostic Test (Pha) 1 strip ACHS 09/04/25 07:00 09/05/25 10:54 1 STRIP Insulin Human Regular ACHS SC 09/04/25 07:00 09/05/25 10:55 2 UNITS Dextrose 50 ml UD PRN IV 09/04/25 05:15 Ondansetron HCl 4 mg Q4HP PRN IV 09/04/25 05:15 Propofol 100 ml @ 1.95 mls/hr Q24H IV 09/04/25 08:45 09/05/25 02:30 1.95 MLS/HR Metronidazole 100 ml @ 100 mls/hr Q8HR IV 09/04/25 18:00 09/05/25 12:48 100 MLS/HR Furosemide 40 mg DAILY IV 09/05/25 10:00 09/05/25 07:22 40 MG Examination: LUNGS:Abnormal (Intubated, Fio2 30%) laboratory and microbiology Laboratory Tests 09/05/25 04:00 Test 09/05/25 04:00 Range/Units Serum Glucose 121 H 74-106 mg/dL Problem List/Assessment/Plan Problem List/Assessment/Plan Assessment Cardiopulmonary arrest with ROSC Ventricular fibrillation arrest with defibrillation at 100J Non ST-elevation myocardial infarction Acute anemia status post blood transfusion Acute hypoxic respiratory failure Likely KIMI on CKD Left nephrectomy Shocked Liver Dyslipidemia, newly diagnosed ?Seizure activity Pulmonary hypertension Cerebral and cerebellar edema, Anoxic brain injury. * Transthoracic echocardiogram, pending at this time * Multiple 12 lead electrocardiograms x3: Sinus rhythm with peaked T-waves and no evidence of ST-T wave segment changes * Troponin levels peaked at 8,000s ng/L Plan/Recommendation (Dr. Mitchell) Plan: We will continue further cardiac evaluation with a transthoracic echocardiogram to evaluate cardiac function. Continue hemodynamic support with vasopressors as needed. Negative FOBT. Monitor H&H closely and transfuse as necessary. Continue Nephrology, pulmonology, and neurological recommendations. Monitor ECG changes closely and notify. Repeat CT head consistent with severe diffuse cerebral and cerebellar edema representing anoxic brain injury. Follow up neurology recs. Patient not a candidate for ischemic workup at this time. We will continue conservative medical management. Thank you for allowing us to participate in this patient's care. Please call if you have any questions or concerns. Critical care time: 50 minutes. This medical document was created using an electronic medical record system with voice recognition software and computerized dictation system. Although this document has been carefully reviewed, there might still be some phonetic and typographical errors. Occasional wrong-word or ``sound-alike substitutions may have occurred due to the inherent limitations of voice recognition software. These areas are purely typographical due to imperfections of the software programs and do not reflect any compromise in the patient's medical care. Please read the chart carefully and recognize, using context, where these substitutions have occurred. Plan discussed with: Spouse, Other (RN) CC Plasma Assessment Blood Product Administration S: [id number] Date of Service: Sep 05, 2025 Billing Provider: CIRA KIM [facility] Common Visit Codes: [id number] INP/OBS CARE(HIGH), [id number] CARE 30-74 MIN CIRA KIM Sep 05, 2025 13:54
--- NOTE | 2025-09-05 14:35 | DVHPN2 ---
Progress Note Date Seen: Sep 05, 2025 Medical Necessity Reason Pt with a Central, PICC or Fol: No Subjective Patient reports: Other Review of Systems: Deferred Objective vital signs Vital Sign Date Time Temp Pulse Resp B/P (MAP) Pulse Ox O2 Delivery O2 Flow Rate FiO2 09/05/25 13:41 12 97 Mechanical Ventilator+ 30 30 09/05/25 13:41 85 09/05/25 13:33 96/60 (72) 09/05/25 12:00 97.5 97.5 09/04/25 04:31 50.0 Total Intake and Output 09/04/25 09/04/25 09/05/25 15:00 23:00 07:00 Intake Total 2343.45 ml 1441.15 ml 1104.90 ml Output Total 25 ml 250 ml 190 ml Balance 2318.45 ml 1191.15 ml 914.90 ml medications Current Medications Medications Dose Ordered Sig/Ese Route Start Time Stop Time Status Last Admin Dose Admin Norepinephrine Bitartrate 250 ml @ 3.75 mls/hr Q24H IV 09/04/25 02:00 09/05/25 01:22 26.25 MLS/HR Epinephrine HCl 250 ml @ 7.5 mls/hr Q24H IV 09/04/25 02:00 09/04/25 01:50 7.5 MLS/HR Midazolam HCl 100 ml @ 1 mls/hr Q24H IV 09/04/25 05:00 09/04/25 04:28 1 MLS/HR Ceftriaxone Sodium 50 ml @ 100 mls/hr DAILY@09 IV 09/05/25 09:00 09/05/25 07:22 100 MLS/HR Vancomycin HCl 0 ml @ 0 mls/hr PER PHARMACY IV 09/04/25 05:15 Diagnostic Test (Pha) 1 strip ACHS 09/04/25 07:00 09/05/25 10:54 1 STRIP Insulin Human Regular ACHS SC 09/04/25 07:00 09/05/25 10:55 2 UNITS Dextrose 50 ml UD PRN IV 09/04/25 05:15 Ondansetron HCl 4 mg Q4HP PRN IV 09/04/25 05:15 Propofol 100 ml @ 1.95 mls/hr Q24H IV 09/04/25 08:45 09/05/25 02:30 1.95 MLS/HR Metronidazole 100 ml @ 100 mls/hr Q8HR IV 09/04/25 18:00 09/05/25 12:48 100 MLS/HR Furosemide 40 mg DAILY IV 09/05/25 10:00 09/05/25 07:22 40 MG laboratory and microbiology Laboratory Tests 09/05/25 04:00 Test 09/05/25 04:00 Range/Units Serum Glucose 121 H 74-106 mg/dL Microbiology Date/Time Source Procedure Growth Status 09/04/25 04:22 Sputum Expectorated Sputum Gram Stain - Final Resulted 09/04/25 04:22 Sputum Expectorated Sputum Respiratory Culture - Preliminary Resulted 09/04/25 01:40 Blood Blood Culture - Preliminary NO GROWTH AFTER 24 HOURS OF INCUBATION. Resulted Problem List/Assessment/Plan Problem List/Assessment/Plan KIMI, (baseline not available), due to cardiac arrest//ATN Hyperkalemia Metabolic acidosis Status post cardiac arrest, Anoxic encephalopathy Cardiogenic/septic shock NSTEMI Anxiety and depression recs iv lasix as ordered dc bicarb drip Plan discussed with: Other My Orders My Orders Orders - PANCHO ACEVEDO MD Procedure Category Date Status Time Nancy; Comprehensive LAB 09/04/25 In Process Panel 17:59 Anca Panel LAB 09/04/25 In Process 17:59 Complement C3 & C4 LAB 09/04/25 In Process 17:59 CC Plasma Assessment Blood Product Administration S: [id number] PANCHO ACEVEDO MD Sep 05, 2025 14:35
--- NOTE | 2025-09-05 15:40 | DVHSR ---
APPROVED REPORT EXAM: LIMITED Two-dimensional and M-mode echocardiogram with Doppler and color Doppler. Blood Pressure: 111/65 mmHg INDICATION Cardiac Arrest RISK FACTORS Height: 5' 3", Weight: 132 DIMENSIONS LVDd 3.0 (3.8-5.7cm) LA (2D) 3.6 (1.9-4.0cm) Aortic Root 2.7 (2.0-3.7cm) LVDs 2.3 (2.5-4.0cm) LA (MM) (1.9-4.0cm) Aortic Cusp Exc 1.5 (1.5-2.0cm) EF (%) 45.0 (55-70%) Rt. Atrium 3.7 (1.9-4.0cm) Asc. Aorta cm IVSd 1.0 (0.7-1.1cm) RV (D) (1.8-2.4cm) PWd 1.0 (0.7-1.1cm) Mitral Valve Mitral Mitral Stenosis E wave 0.90m/s MV Mean GR. mmHg A wave 0.70m/s MV Peak GR. mmHg E/A ratio 1.3 2D MVA cm2 Aortic Valve Aortic Valve Aortic Stenosis V1 1.60m/s AO Mean GR. 5mmHg V2 1.50m/s AO Peak GR. 9mmHg LVOT Diameter 2.0 (1.8-2.4cm) Doppler PILY 3.35cm2 Tricuspid Valve TR Velocity 2.97m/s RVSP 42mmHg Other Information Quality : Technically Limited Rhythm : Tachycardia Technically limited study due to body habitus, patient position and on vent. Conclusion MODERATELY DILATED RV AND IS HYPOKINETIC DYSKINESIS OF IVS RVSP IS 40 MM OF HG AND IS HIGH STUDY CONFIRM RV FAILURE GLOBAL LV HYPOKINESIS LV EF IS 40% AND IS REDUCED NORMAL VALVES NO EFFUSION
--- NOTE | 2025-09-05 18:03 | DVHPN2 ---
Progress Note - Dictate Date Seen: Sep 05, 2025 Medical Necessity Reason Pt with a Central, PICC or Fol: No Subjective Patient is continuing to do poorly and unresponsive vital signs Vital Sign Date Time Temp Pulse Resp B/P (MAP) Pulse Ox O2 Delivery O2 Flow Rate FiO2 09/05/25 17:48 12 96 Mechanical Ventilator+ 30 30 09/05/25 17:48 79 09/05/25 17:45 101/58 (72) 09/05/25 16:00 97.0 97.0 09/04/25 04:31 50.0 Total Intake and Output 09/04/25 09/04/25 09/05/25 15:00 23:00 07:00 Intake Total 2343.45 ml 1441.15 ml 1104.90 ml Output Total 25 ml 250 ml 190 ml Balance 2318.45 ml 1191.15 ml 914.90 ml medications Current Medications Medications Dose Ordered Sig/Ese Route Start Time Stop Time Status Last Admin Dose Admin Norepinephrine Bitartrate 250 ml @ 3.75 mls/hr Q24H IV 09/04/25 02:00 09/05/25 01:22 26.25 MLS/HR Epinephrine HCl 250 ml @ 7.5 mls/hr Q24H IV 09/04/25 02:00 09/04/25 01:50 7.5 MLS/HR Midazolam HCl 100 ml @ 1 mls/hr Q24H IV 09/04/25 05:00 09/04/25 04:28 1 MLS/HR Ceftriaxone Sodium 50 ml @ 100 mls/hr DAILY@09 IV 09/05/25 09:00 09/05/25 07:22 100 MLS/HR Vancomycin HCl 0 ml @ 0 mls/hr PER PHARMACY IV 09/04/25 05:15 Diagnostic Test (Pha) 1 strip ACHS 09/04/25 07:00 09/05/25 17:00 1 STRIP Insulin Human Regular ACHS SC 09/04/25 07:00 09/05/25 17:00 2 UNITS Dextrose 50 ml UD PRN IV 09/04/25 05:15 Ondansetron HCl 4 mg Q4HP PRN IV 09/04/25 05:15 Propofol 100 ml @ 1.95 mls/hr Q24H IV 09/04/25 08:45 09/05/25 02:30 1.95 MLS/HR Metronidazole 100 ml @ 100 mls/hr Q8HR IV 09/04/25 18:00 09/05/25 12:48 100 MLS/HR Furosemide 40 mg DAILY IV 09/05/25 10:00 09/05/25 07:22 40 MG objective Is intubated abdomen is soft nontender no masses laboratory and microbiology Laboratory Tests 09/05/25 14:01 09/05/25 04:00 Test 09/05/25 04:00 Range/Units Serum Glucose 121 H 74-106 mg/dL Assessment/Plan 40-year-old female with anxiety status post cardiac arrest on intubated now with the abnormal liver enzymes increased INR No history of any chronic liver disease in the past Clinical impression Acute shock liver from hypotension and CPR possible ischemic hepatitis Possibility of a drug effect can not be excluded though no history of any drug abuse We will recommend to follow the LFTs closely. Watch closely intake patient does not respond may need tracheostomy and PEG tube placement later Her overall prognosis is guarded Plan discussed with: Spouse CC Plasma Assessment Blood Product Administration S: [id number] VLADIMIR SADLER MD Sep 05, 2025 18:03
[2025-09-05] MEDS: AZITHROMYCIN 500MG/250ML 250 ML IV ONE (21:07)
[2025-09-05] MEDS: PANTOPRAZOLE 40 MG/10 ML VIAL INJ IV ONE (21:08)
--- NOTE | 2025-09-05 22:40 | DVHPN2 ---
Consult Progress Note Subjective Review of Systems: Not Done (intubated) Other Systems: Patient was seen and evaluated in follow up in the ICU. Patient is intubated and sedated on ventilator. 30% FiO2. WBC 15.6, HCT 30.7, GLUC 253. Chest x-ray shows hazy bilateral infrahilar opacities suggesting mild atelectasis. Objective vital signs Vital Sign Date Time Temp Pulse Resp B/P (MAP) Pulse Ox O2 Delivery O2 Flow Rate FiO2 09/05/25 15:00 85 20 110/59 (76) 97 09/05/25 13:41 Mechanical Ventilator+ 30 30 09/05/25 12:00 97.5 97.5 09/04/25 04:31 50.0 Total Intake and Output 09/04/25 09/04/25 09/05/25 15:00 23:00 07:00 Intake Total 2343.45 ml 1441.15 ml 1104.90 ml Output Total 25 ml 250 ml 190 ml Balance 2318.45 ml 1191.15 ml 914.90 ml medications Current Medications Medications Dose Ordered Sig/Ese Route Start Time Stop Time Status Last Admin Dose Admin Norepinephrine Bitartrate 250 ml @ 3.75 mls/hr Q24H IV 09/04/25 02:00 09/05/25 01:22 26.25 MLS/HR Epinephrine HCl 250 ml @ 7.5 mls/hr Q24H IV 09/04/25 02:00 09/04/25 01:50 7.5 MLS/HR Midazolam HCl 100 ml @ 1 mls/hr Q24H IV 09/04/25 05:00 09/04/25 04:28 1 MLS/HR Ceftriaxone Sodium 50 ml @ 100 mls/hr DAILY@09 IV 09/05/25 09:00 09/05/25 07:22 100 MLS/HR Vancomycin HCl 0 ml @ 0 mls/hr PER PHARMACY IV 09/04/25 05:15 Diagnostic Test (Pha) 1 strip ACHS 09/04/25 07:00 09/05/25 10:54 1 STRIP Insulin Human Regular ACHS SC 09/04/25 07:00 09/05/25 10:55 2 UNITS Dextrose 50 ml UD PRN IV 09/04/25 05:15 Ondansetron HCl 4 mg Q4HP PRN IV 09/04/25 05:15 Propofol 100 ml @ 1.95 mls/hr Q24H IV 09/04/25 08:45 09/05/25 02:30 1.95 MLS/HR Metronidazole 100 ml @ 100 mls/hr Q8HR IV 09/04/25 18:00 09/05/25 12:48 100 MLS/HR Furosemide 40 mg DAILY IV 09/05/25 10:00 09/05/25 07:22 40 MG Examination: GENERAL:Abnormal, NECK:Normal, LUNGS:Abnormal (Intubated, Fio2 30%), CVS:Normal, ABDOMEN:Normal, SKIN:Normal laboratory and microbiology Laboratory Tests 09/05/25 14:01 09/05/25 04:00 Test 09/05/25 04:00 Range/Units Serum Glucose 121 H 74-106 mg/dL Problem List/Assessment/Plan Problem List/Assessment/Plan Problem List Cardiopulmonary arrest with ROSC. Ventricular fibrillation arrest with defibrillation at 100J. Non ST-elevation myocardial infarction. Acute anemia status post blood transfusion. Acute hypoxic respiratory failure. Likely KIMI on CKD. Left nephrectomy. Shocked Liver. Dyslipidemia, newly diagnosed. ?Seizure activity. Pulmonary hypertension. Cerebral and cerebellar edema, Anoxic brain injury. Plan/Recommendation Continued all current supportive medical care. Patient has been seen by Christian Mc NP on my behalf, him and I discussed the plan with the patient. Transthoracic echocardiogram, pending at this time. Multiple 12 lead electrocardiograms x3: Sinus rhythm with peaked T-waves and no evidence of ST-T wave segment changes. Troponin levels peaked at 8,000s ng/L. We will continue further cardiac evaluation with a transthoracic echocardiogram to evaluate cardiac function. Continue hemodynamic support with vasopressors as needed. Negative FOBT. Monitor H&H closely and transfuse as necessary. Continue Nephrology, pulmonology, and neurological recommendations. Monitor ECG changes closely and notify. Repeat CT head consistent with severe diffuse cerebral and cerebellar edema representing anoxic brain injury. Follow up neurology recs. Patient not a candidate for ischemic workup at this time. We will continue conservative medical management. Additional plan as per the hospital course. Plan discussed with: Other CC Plasma Assessment Blood Product Administration S: [id number] Date of Service: Sep 05, 2025 Billing Provider: RISHI SOARES MD Cardiology Common Codes: [id number] HOSP CARE(High, [id number] CARE 30-74 MIN RISHI SOARES MD Sep 05, 2025 15:16
[2025-09-06] VITALS (112 sets, daily range): BP systolic 66–130; BP diastolic 43–68; PULSE 58–82; RESP 12–13; TEMP 97.3–98.6; O2SAT 94–99
[2025-09-06 04:36] LABS: Hematocrit 27.2 % (36.0-46.0); Hemoglobin 8.7 g/dL (12.2-16.2); Mean Corpuscular Hemoglobin 21.8 pg (28.0-32.0); Mean Corpuscular Volume 68.0 fL (80.0-100.0); Nucleated Red Blood Cells % 0.0 %
[2025-09-06 05:01] LABS: Alkaline Phosphatase 104 U/L (46-116); Anion Gap 11 (5-15); BUN/Creatinine Ratio 10.2 (10.0-20.0); Bilirubin, Total 0.4 mg/dL (0.2-1.0); Carbon Dioxide 26 mmol/L (20-31); Chloride 100 mmol/L (98-107); Magnesium 1.9 mg/dL (1.6-2.6); Potassium 4.5 mmol/L (3.5-5.1); Sodium 137 mmol/L (136-145)
[2025-09-06 05:02] LABS: Albumin 2.3 g/dL (3.2-4.8); Blood Urea Nitrogen 44 mg/dL (9-23); Calcium 7.4 mg/dL (8.7-10.4); Glucose 169 mg/dL (74-106); Total Protein 4.5 g/dL (5.7-8.2)
[2025-09-06 05:16] LABS: Alanine Aminotransferase 1137 U/L (7-40)
--- NOTE | 2025-09-06 06:48 | DVH ---
MEDICAL RECORDS NUMBER: [id number] PROCEDURE: XY CHEST PORTABLE DATE: 09/06/2025 05:17 AM HISTORY: intubated and sedated Views:1 COMPARISON: XY CHEST PORTABLE on DOS: 09/05/25, XY CHEST XRAY 1 VIEW on DOS: 09/04/25 FINDINGS/IMPRESSION: Lungs: Bibasilar infiltrates are noted. No consolidation is seen. Mediastinum: Mediastinal structures appear unremarkable.Nasogastric tube courses through the film.. Skeletal: The skeletal structures appear unremarkable.
[2025-09-06] MEDS: PANTOPRAZOLE 40 MG/10 ML VIAL INJ IV SCH (07:32)
[2025-09-06] MEDS: AZITHROMYCIN 500MG/250ML 250 ML IV SCH (07:33)
[2025-09-06 07:41] LABS: Base Excess -2.6 mmol/L (-2.0-3.0)
--- NOTE | 2025-09-06 11:12 | DVHPN2 ---
Consult Progress Note Subjective Review of Systems: Deferred (intubated and sedated) Objective vital signs Vital Sign Date Time Temp Pulse Resp B/P (MAP) Pulse Ox O2 Delivery O2 Flow Rate FiO2 09/06/25 10:07 66 12 91/50 (64) 99 60 09/06/25 10:00 Mechanical Ventilator+ 09/06/25 08:45 98.0 98.0 Total Intake and Output 09/05/25 09/05/25 09/06/25 15:00 23:00 07:00 Intake Total 775.00 ml 283.75 ml 48.75 ml Output Total 150 ml 75 ml Balance 775.00 ml 133.75 ml -26.25 ml medications Current Medications Medications Dose Ordered Sig/Ese Route Start Time Stop Time Status Last Admin Dose Admin Norepinephrine Bitartrate 250 ml @ 3.75 mls/hr Q24H IV 09/04/25 02:00 09/05/25 21:08 3.75 MLS/HR Epinephrine HCl 250 ml @ 7.5 mls/hr Q24H IV 09/04/25 02:00 09/04/25 01:50 7.5 MLS/HR Midazolam HCl 100 ml @ 1 mls/hr Q24H IV 09/04/25 05:00 09/04/25 04:28 1 MLS/HR Ceftriaxone Sodium 50 ml @ 100 mls/hr DAILY@09 IV 09/05/25 09:00 09/06/25 07:33 100 MLS/HR Vancomycin HCl 0 ml @ 0 mls/hr PER PHARMACY IV 09/04/25 05:15 Diagnostic Test (Pha) 1 strip ACHS 09/04/25 07:00 09/06/25 06:27 1 STRIP Insulin Human Regular ACHS SC 09/04/25 07:00 09/06/25 06:27 3 UNITS Dextrose 50 ml UD PRN IV 09/04/25 05:15 Propofol 100 ml @ 1.95 mls/hr Q24H IV 09/04/25 08:45 09/05/25 02:30 1.95 MLS/HR Furosemide 40 mg DAILY IV 09/05/25 10:00 09/06/25 07:32 40 MG Pantoprazole Sodium 40 mg DAILY IV 09/06/25 10:00 09/06/25 07:32 40 MG Azithromycin 250 ml @ 125 mls/hr DAILY IV 09/06/25 10:00 09/06/25 07:33 125 MLS/HR Enteral Nutritional Formula 1,000 ml 35ML/HR GT 09/06/25 11:00 UNV Examination: LUNGS:Abnormal (intubated, FiO2 40%. ) laboratory and microbiology Laboratory Tests 09/06/25 04:00 Test 09/06/25 04:00 Range/Units Serum Glucose 169 H 74-106 mg/dL Problem List/Assessment/Plan Problem List/Assessment/Plan Assessment Cardiopulmonary arrest with ROSC Ventricular fibrillation arrest with defibrillation at 100J Non ST-elevation myocardial infarction Acute anemia status post blood transfusion Acute hypoxic respiratory failure Likely KIMI on CKD Left nephrectomy Shocked Liver Dyslipidemia, newly diagnosed ?Seizure activity Pulmonary hypertension Cerebral and cerebellar edema, Anoxic brain injury. PE? * Transthoracic echocardiogram, * Multiple 12 lead electrocardiograms x3: Sinus rhythm with peaked T-waves and no evidence of ST-T wave segment changes * Troponin levels peaked at 8,000s ng/L Plan/Recommendation (Dr. Mitchell) Plan: Transthoracic echo with EF 40%, global LV hypokinesis, moderately dilated and hypokinetic RV, dyskinesis IVS. RVSP 40 mmHg. Given evidence of possible right heart strain suspect possible PE. Check D-dimer, as patient with severe anemia we will continue on heparin 5000 units subQ q.8 hours[address] Unable to have CT pulmonary angio done due to poor kidney function worsening. Consider V/Q scan. Continue hemodynamic support with vasopressors as needed. Negative FOBT. Monitor H&H closely and transfuse as necessary. Continue Nephrology, pulmonology, and neurological recommendations. Monitor ECG changes closely and notify. Repeat CT head consistent with severe diffuse cerebral and cerebellar edema representing anoxic brain injury. Follow up neurology recs. Patient not a candidate for ischemic workup at this time. We will continue conservative medical management. Thank you for allowing us to participate in this patient's care. Please call if you have any questions or concerns. Critical care time: 50 minutes. This medical document was created using an electronic medical record system with voice recognition software and computerized dictation system. Although this document has been carefully reviewed, there might still be some phonetic and typographical errors. Occasional wrong-word or ``sound-alike substitutions may have occurred due to the inherent limitations of voice recognition software. These areas are purely typographical due to imperfections of the software programs and do not reflect any compromise in the patient's medical care. Please read the chart carefully and recognize, using context, where these substitutions have occurred. Plan discussed with: Spouse, Daughter Dietary Evaluation Review Comments: 1. nepro 35/hr providing 68g pro, 1487kcal, 611ml free water, meeting 107% energy needs, 80% protein needs 2. Increase amount of Protein support for wound healing when/if pt's kidney function impvoes. F/U and reassess when pt is off vent and PRN. Expected Outcomes/Goals: Adequate nutrition support for being on mechanical ventilation CC Plasma Assessment Blood Product Administration S: 06:05 Date of Service: Sep 06, 2025 Billing Provider: CIRA KIM Common Visit Codes: [id number] INP/OBS CARE(HIGH), [id number] CARE 30-74 MIN CIRA KIM Sep 06, 2025 11:12
[2025-09-06 11:49] LABS: Base Excess 1.0 mmol/L (-2.0-3.0)
[2025-09-06] MEDS: HEPARIN SODIUM (PORCINE) 5000 UNITS/ML 1ML VIAL SC SCH (11:57)
--- NOTE | 2025-09-06 15:16 | DVHPN2 ---
Progress Note - Dictate Date Seen: Sep 06, 2025 Medical Necessity Reason Pt with a Central, PICC or Fol: Yes The following are medically ne: Central Line, Sams Catheter Subjective Ms. Murillo is a 40 years old female with a history of kidney stone, depression, anxiety, she was brought to the [facility] on 09/04/2025 with a chief complaint of cardio pulmonary arrest I have seen and examined the patient, I have discussed with her nurse, I have had meeting with her daughters, sister, cousin, I have updated them about her critical condition, her two CT brain scans I told them the patient is likely to have a poor prognosis for meaningful/overall recovery Urinalysis, 09/04/2025: WBC: 37, urine leukocyte esterase: Negative UDS, 09/04/2025: Negative Plasma alcohol, 09/04/2025: <3 ABG, 09/10/2025: Metabolic acidosis WBC/HB/PLT/MCV, 09/04/2025: 8.8/6.4/260/79.8 PT/INR/ABG, 09/04/2025: 70.4/1.73/ Na, 09/04/2025: 151, 148, 140 K, 09/04/2025: 6.3, 4.6, 3.2 BUN/CR, 09/04/2025: 30/2.69 TBI/AST/ALT/AP, 09/04/2025: 0.11/2481/4030/74, 0.01/5737/2100/93 Glucose, 09/04/2025: 146, 294, 503 HGB A1c, 09/04/2025: 5 Lactic acid, 09/04/2025: 21.1, or 15.2 Troponin one high sensitivity, 09/04/2025: 2769, 5664, 7574 TG/HDL/LDL/HDL, 09/04/2025: 186/86/41/25 Extremity venous study, 09/04/2025: NO SONOGRAPHIC EVIDENCE FOR DEEP VENOUS THROMBOSIS IN THE BILATERAL LOWER EXTREMITY VEINS CT head, 09/04/25: No acute intracranial abnormality (I saw evidence suggestive of early diffuse brain edema) CT head 09/05/25: Findings are consistent with severe diffuse cerebral and cerebellar edema possibly representing anoxic brain injury. vital signs Vital Sign Date Time Temp Pulse Resp B/P (MAP) Pulse Ox O2 Delivery O2 Flow Rate FiO2 09/06/25 14:30 67 12 129/63 (85) 99 09/06/25 13:58 40 09/06/25 13:58 Mechanical Ventilator+ 09/06/25 12:00 97.5 97.5 Total Intake and Output 09/05/25 09/05/25 09/06/25 15:00 23:00 07:00 Intake Total 775.00 ml 283.75 ml 48.75 ml Output Total 150 ml 75 ml Balance 775.00 ml 133.75 ml -26.25 ml medications Current Medications Medications Dose Ordered Sig/Ese Route Start Time Stop Time Status Last Admin Dose Admin Norepinephrine Bitartrate 250 ml @ 3.75 mls/hr Q24H IV 09/04/25 02:00 09/05/25 21:08 3.75 MLS/HR Epinephrine HCl 250 ml @ 7.5 mls/hr Q24H IV 09/04/25 02:00 09/04/25 01:50 7.5 MLS/HR Midazolam HCl 100 ml @ 1 mls/hr Q24H IV 09/04/25 05:00 09/04/25 04:28 1 MLS/HR Ceftriaxone Sodium 50 ml @ 100 mls/hr DAILY@09 IV 09/05/25 09:00 09/06/25 07:33 100 MLS/HR Vancomycin HCl 0 ml @ 0 mls/hr PER PHARMACY IV 09/04/25 05:15 Diagnostic Test (Pha) 1 strip ACHS 09/04/25 07:00 09/06/25 11:21 1 STRIP Insulin Human Regular ACHS SC 09/04/25 07:00 09/06/25 11:25 3 UNITS Dextrose 50 ml UD PRN IV 09/04/25 05:15 Propofol 100 ml @ 1.95 mls/hr Q24H IV 09/04/25 08:45 09/05/25 02:30 1.95 MLS/HR Furosemide 40 mg DAILY IV 09/05/25 10:00 09/06/25 07:32 40 MG Pantoprazole Sodium 40 mg DAILY IV 09/06/25 10:00 09/06/25 07:32 40 MG Azithromycin 250 ml @ 125 mls/hr DAILY IV 09/06/25 10:00 09/06/25 07:33 125 MLS/HR Enteral Nutritional Formula 1,000 ml 35ML/HR GT 09/06/25 11:00 Heparin Sodium (Porcine) 5,000 units Q8HR SC 09/06/25 14:00 09/06/25 11:57 5,000 UNITS objective The patient is well-nourished and well-developed with no distress. The patient is intubated MENTAL STATUS: Nonresponsive stroke painful stimuli CRANIAL NERVES: Pupils are equal, round, dilated and fixed. There are no corneal reflexes and doll's eyes phenomenon. No signs of facial weakness. There are no gagging or coughing reflexes SENSATION: No responses to strong pain stimuli. MOTOR: Normal tone in the upper and lower extremity. Normal muscle bulk. No fasciculations. No spontaneous movement. REFLEXES: Deep tendon reflexes are symmetrical. No pathological reflexes. CEREBELLAR/COORDINATION: Deferred GAIT/STATION: deferred. laboratory and microbiology Laboratory Tests 09/06/25 04:00 Test 09/06/25 04:00 Range/Units Serum Glucose 169 H 74-106 mg/dL Problem List Cardiopulmonary arrest Coma/Metabolic/hypoxic encephalopathy Metabolic acidosis Acute respiratory failure Elevated troponin/heart attack Severe anemia Shocked liver Hypernatremia Assessment/Plan Monitoring Supportive treatment ICU care Follow up labs Stabilize vitals/pressor drip Respiratory support/vent management Oxygen Antibiotics DVT prophylaxis GI prophylaxis More recommendation per clinical course This medical document was created using an electronic medical record system with [employer] dictation system. Although this document has been carefully reviewed, there may still be some phonetic and typographical errors. These areas are purely typographical due to imperfections of the software programs, and do not reflect any compromise in the patient's medical care. Prognosis guarded Dietary Evaluation Review Comments: 1. nepro 35/hr providing 68g pro, 1487kcal, 611ml free water, meeting 107% energy needs, 80% protein needs 2. Increase amount of Protein support for wound healing when/if pt's kidney function impvoes. F/U and reassess when pt is off vent and PRN. Expected Outcomes/Goals: Adequate nutrition support for being on mechanical ventilation Plan discussed with: Daughter, Other Critical Care Time(min): 40 CC Plasma Assessment Blood Product Administration S: 06:05 ALEXIS DEL ANGEL MD Sep 06, 2025 15:16
[2025-09-06] MEDS: FUROSEMIDE 40 MG/4 ML VIAL IV SCH (18:05)
--- NOTE | 2025-09-06 19:15 | DVHPN2 ---
Progress Note Date Seen: Sep 06, 2025 Medical Necessity Reason Pt with a Central, PICC or Fol: No The following are medically ne: Central Line, Sams Catheter Subjective Patient reports: Other Review of Systems: Deferred Objective vital signs Vital Sign Date Time Temp Pulse Resp B/P (MAP) Pulse Ox O2 Delivery O2 Flow Rate FiO2 09/06/25 19:01 62 12 102/62 50.0 30 09/06/25 18:50 98 09/06/25 17:43 Mechanical Ventilator+ 09/06/25 16:00 97.3 97.3 Total Intake and Output 09/05/25 09/05/25 09/06/25 15:00 23:00 07:00 Intake Total 775.00 ml 283.75 ml 48.75 ml Output Total 150 ml 75 ml Balance 775.00 ml 133.75 ml -26.25 ml medications Current Medications Medications Dose Ordered Sig/Ese Route Start Time Stop Time Status Last Admin Dose Admin Norepinephrine Bitartrate 250 ml @ 3.75 mls/hr Q24H IV 09/04/25 02:00 09/05/25 21:08 3.75 MLS/HR Epinephrine HCl 250 ml @ 7.5 mls/hr Q24H IV 09/04/25 02:00 09/04/25 01:50 7.5 MLS/HR Midazolam HCl 100 ml @ 1 mls/hr Q24H IV 09/04/25 05:00 09/04/25 04:28 1 MLS/HR Ceftriaxone Sodium 50 ml @ 100 mls/hr DAILY@09 IV 09/05/25 09:00 09/06/25 07:33 100 MLS/HR Vancomycin HCl 0 ml @ 0 mls/hr PER PHARMACY IV 09/04/25 05:15 Diagnostic Test (Pha) 1 strip ACHS 09/04/25 07:00 09/06/25 16:48 1 STRIP Insulin Human Regular ACHS SC 09/04/25 07:00 09/06/25 16:49 2 UNITS Dextrose 50 ml UD PRN IV 09/04/25 05:15 Propofol 100 ml @ 1.95 mls/hr Q24H IV 09/04/25 08:45 09/05/25 02:30 1.95 MLS/HR Pantoprazole Sodium 40 mg DAILY IV 09/06/25 10:00 09/06/25 07:32 40 MG Azithromycin 250 ml @ 125 mls/hr DAILY IV 09/06/25 10:00 09/06/25 07:33 125 MLS/HR Enteral Nutritional Formula 1,000 ml 35ML/HR GT 09/06/25 11:00 Heparin Sodium (Porcine) 5,000 units Q8HR SC 09/06/25 14:00 09/06/25 11:57 5,000 UNITS Furosemide 40 mg BIDD IV 09/06/25 18:00 09/06/25 18:05 40 MG Examination: LUNGS:Abnormal, MSK:Abnormal, NEURO:Abnormal laboratory and microbiology Laboratory Tests 09/06/25 04:00 Test 09/06/25 04:00 Range/Units Serum Glucose 169 H 74-106 mg/dL Microbiology Date/Time Source Procedure Growth Status 09/04/25 23:21 Urine - Sams Port Urine Culture - Preliminary No growth Resulted 09/04/25 10:00 Nose MRSA Screen - Final Complete 09/04/25 04:22 Sputum Expectorated Sputum Gram Stain - Final Complete 09/04/25 04:22 Respiratory Culture - Final Staphylococcus aureus Complete 09/04/25 01:40 Blood Blood Culture - Preliminary NO GROWTH AFTER 48 HOURS OF INCUBATION. Resulted Problem List/Assessment/Plan Problem List/Assessment/Plan KIMI, (baseline not available), due to cardiac arrest//ATN Hyperkalemia Metabolic acidosis Status post cardiac arrest, Anoxic encephalopathy Cardiogenic/septic shock NSTEMI Anxiety and depression recs iv lasix as ordered dc bicarb drip Ct head--anoxic encephalopathy grave prognosis Plan discussed with: Spouse, Daughter, Other My Orders My Orders Orders - PANCHO ACEVEDO MD Procedure Category Date Status Time Furosemide Injection PHA 09/06/25 In Process (Lasix Injection) 18:00 Dietary Evaluation Review Comments: 1. nepro 35/hr providing 68g pro, 1487kcal, 611ml free water, meeting 107% energy needs, 80% protein needs 2. Increase amount of Protein support for wound healing when/if pt's kidney function impvoes. F/U and reassess when pt is off vent and PRN. Expected Outcomes/Goals: Adequate nutrition support for being on mechanical ventilation CC Plasma Assessment Blood Product Administration S: 06:05 PANCHO ACEVEDO MD Sep 06, 2025 19:15
--- NOTE | 2025-09-06 19:20 | DVHPNRES ---
Progress Note Date Seen: Sep 06, 2025 Resident Creating Document: DEE RUIZ RESIDENT Medical Necessity Reason Pt with a Central, PICC or Fol: No The following are medically ne: Central Line, Sams Catheter Subjective Review of Systems The patient is a 40-year-old female with past medical history of anxiety, UTIs, and kidney stones who presented to [facility] ED for evaluation of cardiac arrest. As reported by EMS/family, patient had cardiac arrest, was asystole 1238 a.m., CPR initiated by family. Patient was initially anxious but was not having any complaints like chest pain or shortness of breath. EMS were on the scene within 5 minutes, CPR continued, patient was given IV fluid, epinephrine x2, became VFib so patient was shocked at 100 joules, Narcan given, became asystole again upon arrival at ER at 0108 hours, blood sugar upon arrival was 43, ROSC obtained at 0112 a.m. Family also reports that patient was depressed for the past 5 years, she has been staying in bed with decreased oral intake, had a fall injury in April resulting in arm and hip fracture. They denied any other significant past medical history. Patient was seen and evaluated in the ED, laboratory data shows WBC 8.8, hemoglobin 6.4, hematocrit 25.0, platelets 260, sodium 151, potassium 6.3, BUN 29, creatinine 2.52, GFR 24, glucose 146, anion gap 28.001, calcium 7.9, lactic acid 21.1 trending down to 15.2, magnesium 4.1, AST 2482, ALT 1430, troponin 2769, BNP 8.48, lipase 31, protein 4.8, albumin 2.7, blood pressure 151/22 trending up to 107/30, heart rate 106, temperature 94.2 F, O2 saturation 97% on ventilator. Head CT showed no acute intracranial abnormality. Patient was started on IV antibiotic regimen vancomycin, please see medication orders section in the computer. On my assessment, patient remains fully intubated, no diaphoresis, no diarrhea, vomiting, no fever. Patient was admitted for further evaluation and medical management. past surgical history; family denies family history: noncontributory past social history: patient lives with the family, denies any smoking, alcohol, drug use 09/06/25: patient seen in ICU. Patient is intubated, on Levophed o, off sedation. Head CT showed diffuse cerebral and cerebellar edema due to anoxic brain injury. neurology following, neurology stated poor prognosis. Kidney functions worsening. Patient's family states before admission patient has seizure-like activity, loss of consciousness which was on and off during the whole day. Objective vital signs Vital Sign Date Time Temp Pulse Resp B/P (MAP) Pulse Ox O2 Delivery O2 Flow Rate FiO2 09/06/25 19:01 62 12 102/62 50.0 30 09/06/25 18:50 98 09/06/25 17:43 Mechanical Ventilator+ 09/06/25 16:00 97.3 97.3 Total Intake and Output 09/05/25 09/05/25 09/06/25 15:00 23:00 07:00 Intake Total 775.00 ml 283.75 ml 48.75 ml Output Total 150 ml 75 ml Balance 775.00 ml 133.75 ml -26.25 ml medications Current Medications Medications Dose Ordered Sig/Ese Route Start Time Stop Time Status Last Admin Dose Admin Norepinephrine Bitartrate 250 ml @ 3.75 mls/hr Q24H IV 09/04/25 02:00 09/05/25 21:08 3.75 MLS/HR Epinephrine HCl 250 ml @ 7.5 mls/hr Q24H IV 09/04/25 02:00 09/04/25 01:50 7.5 MLS/HR Midazolam HCl 100 ml @ 1 mls/hr Q24H IV 09/04/25 05:00 09/04/25 04:28 1 MLS/HR Ceftriaxone Sodium 50 ml @ 100 mls/hr DAILY@09 IV 09/05/25 09:00 09/06/25 07:33 100 MLS/HR Vancomycin HCl 0 ml @ 0 mls/hr PER PHARMACY IV 09/04/25 05:15 Diagnostic Test (Pha) 1 strip ACHS 09/04/25 07:00 09/06/25 16:48 1 STRIP Insulin Human Regular ACHS SC 09/04/25 07:00 09/06/25 16:49 2 UNITS Dextrose 50 ml UD PRN IV 09/04/25 05:15 Propofol 100 ml @ 1.95 mls/hr Q24H IV 09/04/25 08:45 09/05/25 02:30 1.95 MLS/HR Pantoprazole Sodium 40 mg DAILY IV 09/06/25 10:00 09/06/25 07:32 40 MG Azithromycin 250 ml @ 125 mls/hr DAILY IV 09/06/25 10:00 09/06/25 07:33 125 MLS/HR Enteral Nutritional Formula 1,000 ml 35ML/HR GT 09/06/25 11:00 Heparin Sodium (Porcine) 5,000 units Q8HR SC 09/06/25 14:00 09/06/25 11:57 5,000 UNITS Furosemide 40 mg BIDD IV 09/06/25 18:00 09/06/25 18:05 40 MG Examination General Appearance: sedated, intubated HEENT: Atraumatic, PERRLA, EOMI, Mucous membrane moist/pink Respiratory: Clear to auscultation, Normal air movement Cardiovascular: Regular rate, Normal S1, Normal S2, No murmurs, no chest wall tenderness Abdominal: Normal bowel sounds, Soft, No tenderness, No hepatospenomegaly, No masses Extremities: No clubbing, No cyanosis, No edema, Normal pulses, No tenderness/swelling Skin: No rashes, No breakdown, No significant lesion Neuro: 8 plus blown pupils, no cough or gag reflex. laboratory and microbiology Laboratory Tests 09/06/25 04:00 Test 09/06/25 04:00 Range/Units Serum Glucose 169 H 74-106 mg/dL Microbiology Date/Time Source Procedure Growth Status 09/04/25 23:21 Urine - Sams Port Urine Culture - Preliminary No growth Resulted 09/04/25 10:00 Nose MRSA Screen - Final Complete 09/04/25 04:22 Sputum Expectorated Sputum Gram Stain - Final Complete 09/04/25 04:22 Respiratory Culture - Final Staphylococcus aureus Complete 09/04/25 01:40 Blood Blood Culture - Preliminary NO GROWTH AFTER 48 HOURS OF INCUBATION. Resulted Problem List/Assessment/Plan Problem List/Assessment/Plan Neurology/Psychiatry # Sedation -off sedation # History of anxiety # ?Seizure like activity -neurology on board - neurology stated poor prognosis # anoxic brain injury seen on CT likely due to cardiac arrest Neurology on board Cardiology # Cardiac arrest s/p ROSC # heart failure with reduced ejection fraction likely post cardiac arrest # Dyslipidemia # Non ST-elevation myocardial infarction likely type 2 status post cardiac arrest, type 1 not ruled out -head CT -ekg -echo : Conclusion MODERATELY DILATED RV AND IS HYPOKINETIC DYSKINESIS OF IVS RVSP IS 40 MM OF HG AND IS HIGH STUDY CONFIRM RV FAILURE GLOBAL LV HYPOKINESIS LV EF IS 40% AND IS REDUCED NORMAL VALVES NO EFFUSION -cardiology on board # shock likely cardiogenic/septic Currently on norepinephrine Respiratory # Acute hypoxic Resp failure, on mech vent decrease RR to 12, TV 450, PEEP of 5, FiO2 30% Hematology /oncology # severe anemia requiring blood transfusion -1 unit of PRBC transfused # coagulopathy likely due to sepsis Monitor Infectious disease # sepsis with septic shock ? Aspiration pneumonia ? Urinary tract infection Currently on norepinephrine On vancomycin ceftriaxone, we will start azithromycin Nephrology # KIMI due to cardiac arrest/hemodynamically mediated Monitor CMP IV Lasix ordered by Nephrology Bicarb drip was discontinued # hyperkalemia Corrected # hypernatremia -initially corrected with a half NS # metabolic acidosis due to sepsis Monitor ABG # respiratory alkalosis Decrease respiratory rate to 12 # hypomagnesemia Monitor Urology # complicated urinary tract infection -on antibiotics # Punctate nonobstructing right renal calculi. Seen on ultrasound # Left nephrectomy. Seen on ultrasound GI # PUD prophylaxis Protonix #Shocked Liver -likely post cardiac arrest DVT prophylaxis lovenox on hold because of low Hb Lines left femoral Triple lumen cath Critical time excluding procedures > 77 minutes Code status discussed with the family for >21 min, Full Code Family at bedside, discussed about about the anoxic brain injury and poor prognosis Case discussion with Dr Salcido Plan discussed with: Spouse, Daughter My Orders My Orders Orders - DEE RUIZ RESIDENT Procedure Category Date Status Time Abg W/ Co-Ox RT 09/06/25 Logged 12:00 Tube Feeding DIET 09/06/25 Transmitted Lunch Nutritional PHA 09/06/25 In Process Supplements (Nepro 11:00 Comprehensive LAB 09/07/25 Verified Metabolic Panel 04:00 Chest Xray 1 View XY 09/07/25 Logged 04:00 Abg W/ Co-Ox RT 09/07/25 Logged 04:00 Magnesium LAB 09/07/25 Verified 04:00 Dietary Evaluation Review Comments: 1. nepro 35/hr providing 68g pro, 1487kcal, 611ml free water, meeting 107% energy needs, 80% protein needs 2. Increase amount of Protein support for wound healing when/if pt's kidney function impvoes. F/U and reassess when pt is off vent and PRN. Expected Outcomes/Goals: Adequate nutrition support for being on mechanical ventilation CC Plasma Assessment Blood Product Administration S: 06:05 DEE RUIZ RESIDENT Sep 06, 2025 19:20
--- NOTE | 2025-09-06 21:29 | DVHPN2 ---
Consult Progress Note Subjective Review of Systems: Deferred (intubated and sedated) Other Systems: Patient was seen and evaluated in follow up in the ICU. Patient is intubated and sedated on ventilator. 40% FiO2. Blood cultures are growing gram positive rods. WBC 14.4, HGB 8.7, HCT 27.2, BUN 44, SECURITY SYSTEM ANALYST 4.31, CA 7.4, AST 729, ALT 1137. Chest x-ray shows bibasilar infiltrates are noted. No consolidation is seen. Objective vital signs Vital Sign Date Time Temp Pulse Resp B/P (MAP) Pulse Ox O2 Delivery O2 Flow Rate FiO2 09/06/25 14:30 67 12 129/63 (85) 99 09/06/25 13:58 40 09/06/25 13:58 Mechanical Ventilator+ 09/06/25 12:00 97.5 97.5 Total Intake and Output 09/05/25 09/05/25 09/06/25 15:00 23:00 07:00 Intake Total 775.00 ml 283.75 ml 48.75 ml Output Total 150 ml 75 ml Balance 775.00 ml 133.75 ml -26.25 ml medications Current Medications Medications Dose Ordered Sig/Ese Route Start Time Stop Time Status Last Admin Dose Admin Norepinephrine Bitartrate 250 ml @ 3.75 mls/hr Q24H IV 09/04/25 02:00 09/05/25 21:08 3.75 MLS/HR Epinephrine HCl 250 ml @ 7.5 mls/hr Q24H IV 09/04/25 02:00 09/04/25 01:50 7.5 MLS/HR Midazolam HCl 100 ml @ 1 mls/hr Q24H IV 09/04/25 05:00 09/04/25 04:28 1 MLS/HR Ceftriaxone Sodium 50 ml @ 100 mls/hr DAILY@09 IV 09/05/25 09:00 09/06/25 07:33 100 MLS/HR Vancomycin HCl 0 ml @ 0 mls/hr PER PHARMACY IV 09/04/25 05:15 Diagnostic Test (Pha) 1 strip ACHS 09/04/25 07:00 09/06/25 11:21 1 STRIP Insulin Human Regular ACHS SC 09/04/25 07:00 09/06/25 11:25 3 UNITS Dextrose 50 ml UD PRN IV 09/04/25 05:15 Propofol 100 ml @ 1.95 mls/hr Q24H IV 09/04/25 08:45 09/05/25 02:30 1.95 MLS/HR Furosemide 40 mg DAILY IV 09/05/25 10:00 09/06/25 07:32 40 MG Pantoprazole Sodium 40 mg DAILY IV 09/06/25 10:00 09/06/25 07:32 40 MG Azithromycin 250 ml @ 125 mls/hr DAILY IV 09/06/25 10:00 09/06/25 07:33 125 MLS/HR Enteral Nutritional Formula 1,000 ml 35ML/HR GT 09/06/25 11:00 Heparin Sodium (Porcine) 5,000 units Q8HR SC 09/06/25 14:00 09/06/25 11:57 5,000 UNITS Examination: GENERAL:Abnormal (intubated), NECK:Normal, LUNGS:Abnormal (intubated, FiO2 40%), ABDOMEN:Normal, SKIN:Normal laboratory and microbiology Laboratory Tests 09/06/25 04:00 Test 09/06/25 04:00 Range/Units Serum Glucose 169 H 74-106 mg/dL Problem List/Assessment/Plan Problem List/Assessment/Plan Problem List Cardiopulmonary arrest with ROSC. Ventricular fibrillation arrest with defibrillation at 100J. Non ST-elevation myocardial infarction. Acute anemia status post blood transfusion. Acute hypoxic respiratory failure. Likely KIMI on CKD. Left nephrectomy. Shocked Liver. Dyslipidemia, newly diagnosed. ?Seizure activity. Pulmonary hypertension. Cerebral and cerebellar edema, Anoxic brain injury. PE?. Plan/Recommendation Continued all current supportive medical care. Patient has been seen by Christian Mc NP on my behalf, him and I discussed the plan with the patient. Transthoracic echocardiogram, pending at this time. Multiple 12 lead electrocardiograms x3: Sinus rhythm with peaked T-waves and no evidence of ST-T wave segment changes. Troponin levels peaked at 8,000s ng/L. Transthoracic echo with EF 40%, global LV hypokinesis, moderately dilated and hypokinetic RV, dyskinesis IVS. RVSP 40 mmHg. Given evidence of possible right heart strain suspect possible PE. Check D-dimer, as patient with severe anemia we will continue on heparin 5000 units subQ q.8 hours. Unable to have CT pulmonary angio done due to poor kidney function worsening. Consider V/Q scan. Continue hemodynamic support with vasopressors as needed. Negative FOBT. Monitor H&H closely and transfuse as necessary. Continue Nephrology, pulmonology, and neurological recommendations. Monitor ECG changes closely and notify. Repeat CT head consistent with severe diffuse cerebral and cerebellar edema representing anoxic brain injury. Follow up neurology recs. Patient not a candidate for ischemic workup at this time. We will continue conservative medical management. Additional plan as per the hospital course. Plan discussed with: Other Dietary Evaluation Review Comments: 1. nepro 35/hr providing 68g pro, 1487kcal, 611ml free water, meeting 107% energy needs, 80% protein needs 2. Increase amount of Protein support for wound healing when/if pt's kidney function impvoes. F/U and reassess when pt is off vent and PRN. Expected Outcomes/Goals: Adequate nutrition support for being on mechanical ventilation CC Plasma Assessment Blood Product Administration S: 06:05 Date of Service: Sep 06, 2025 Billing Provider: RISHI SOARES MD Cardiology Common Codes: 21621-[id number](High, [id number] CARE 30-74 MIN RISHI SOARES MD Sep 06, 2025 14:43
[2025-09-07] VITALS (107 sets, daily range): BP systolic 83–140; BP diastolic 39–81; PULSE 53–74; RESP 11–19; TEMP 96.7–98.8; O2SAT 90–100
--- NOTE | 2025-09-07 04:35 | DVH ---
MEDICAL RECORDS NUMBER: [id number] PROCEDURE: XY CHEST XRAY 1 VIEW DATE: 09/07/2025 04:06 AM HISTORY: on vent Views:1 COMPARISON: XY CHEST PORTABLE on DOS: 09/06/25, XY CHEST PORTABLE on DOS: 09/05/25, XY CHEST XRAY 1 VIEW on DOS: 09/04/25 FINDINGS/IMPRESSION: Lungs: Infiltrates are seen at the right base. The lungs are otherwise clear. Mediastinum: Mediastinal structures appear unremarkable.A endotracheal tube is seen with the tip projecting approximately 2 cm above the osmel.Nasogastric tube courses through the film. Skeletal: The skeletal structures appear unremarkable.
[2025-09-07 04:41] LABS: Nucleated Red Blood Cells % 0.0 %
[2025-09-07 04:42] LABS: Anion Gap 14 (5-15); BUN/Creatinine Ratio 10.5 (10.0-20.0); Bilirubin, Total 0.3 mg/dL (0.2-1.0); Carbon Dioxide 26 mmol/L (20-31); Chloride 99 mmol/L (98-107); Hematocrit 24.4 % (36.0-46.0); Hemoglobin 7.8 g/dL (12.2-16.2); Magnesium 1.9 mg/dL (1.6-2.6); Mean Corpuscular Hemoglobin 21.6 pg (28.0-32.0); Mean Corpuscular Volume 68.0 fL (80.0-100.0); Potassium 4.1 mmol/L (3.5-5.1); Sodium 139 mmol/L (136-145)
[2025-09-07 05:01] LABS: Alanine Aminotransferase 766 U/L (7-40); Albumin 2.3 g/dL (3.2-4.8); Alkaline Phosphatase 153 U/L (46-116); Blood Urea Nitrogen 58 mg/dL (9-23); Calcium 7.5 mg/dL (8.7-10.4); Glucose 124 mg/dL (74-106); Total Protein 4.4 g/dL (5.7-8.2)
[2025-09-07 07:57] LABS: Base Excess 1.0 mmol/L (-2.0-3.0)
--- NOTE | 2025-09-07 10:27 | MEDREC ---
[facility] ASP Intervention Section I [facility] ASP Intervention: Deescalate AB based on CS (PLEASE CONSIDER D/C VANCOMYCIN SINCE MRSA NARES NEGATIVE AND RESPIRATORY CULTURE POSITIVE FOR MSSA - NARES SCREENING FOR MRSA HAS A HIGH SPECIFICITY AND NEGATIVE PREDICTIVE VALUE FOR RULING OUT MRSA PNEUMONIA) RAY ANGELES PHARMACIST Sep 07, 2025 10:27
--- NOTE | 2025-09-07 10:30 | DVHPN2 ---
Consult Progress Note Date Seen: Sep 07, 2025 Subjective Other Systems: No overnight cardiac events reported Objective vital signs Vital Sign Date Time Temp Pulse Resp B/P (MAP) Pulse Ox O2 Delivery O2 Flow Rate FiO2 09/07/25 10:03 62 12 98/52 (67) 98 30 09/07/25 08:00 98.8 98.8 09/07/25 07:30 Mechanical Ventilator+ 09/06/25 19:01 50.0 Total Intake and Output 09/06/25 09/06/25 09/07/25 15:00 23:00 07:00 Intake Total 341.25 ml 33.75 ml 191.25 ml Output Total 150 ml 100 ml Balance 341.25 ml -116.25 ml 91.25 ml medications Current Medications Medications Dose Ordered Sig/Ese Route Start Time Stop Time Status Last Admin Dose Admin Norepinephrine Bitartrate 250 ml @ 3.75 mls/hr Q24H IV 09/04/25 02:00 09/07/25 04:25 3.75 MLS/HR Epinephrine HCl 250 ml @ 7.5 mls/hr Q24H IV 09/04/25 02:00 09/04/25 01:50 7.5 MLS/HR Midazolam HCl 100 ml @ 1 mls/hr Q24H IV 09/04/25 05:00 09/04/25 04:28 1 MLS/HR Ceftriaxone Sodium 50 ml @ 100 mls/hr DAILY@09 IV 09/05/25 09:00 09/07/25 09:07 100 MLS/HR Vancomycin HCl 0 ml @ 0 mls/hr PER PHARMACY IV 09/04/25 05:15 Diagnostic Test (Pha) 1 strip ACHS 09/04/25 07:00 09/07/25 06:38 1 STRIP Insulin Human Regular ACHS SC 09/04/25 07:00 09/07/25 06:36 2 UNITS Dextrose 50 ml UD PRN IV 09/04/25 05:15 Propofol 100 ml @ 1.95 mls/hr Q24H IV 09/04/25 08:45 09/05/25 02:30 1.95 MLS/HR Pantoprazole Sodium 40 mg DAILY IV 09/06/25 10:00 09/07/25 09:07 40 MG Azithromycin 250 ml @ 125 mls/hr DAILY IV 09/06/25 10:00 09/06/25 07:33 125 MLS/HR Enteral Nutritional Formula 1,000 ml 35ML/HR GT 09/06/25 11:00 Heparin Sodium (Porcine) 5,000 units Q8HR SC 09/06/25 14:00 09/07/25 05:52 5,000 UNITS Furosemide 40 mg BIDD IV 09/06/25 18:00 09/07/25 05:52 40 MG Examination: GENERAL:Abnormal, LUNGS:Abnormal (Endotracheally intubated), CVS:Abnormal (NSR. On low-dose vasopressor), NEURO:Abnormal (Bilateral fixed dilated pupils. -cough/gag reflex) laboratory and microbiology Laboratory Tests 09/07/25 03:50 Test 09/07/25 03:50 Range/Units Serum Glucose 124 H 74-106 mg/dL Problem List/Assessment/Plan Problem List/Assessment/Plan Cardiopulmonary arrest with ROSC Ventricular fibrillation arrest with defibrillation at 100J Non ST-elevation myocardial infarction Acute anemia status post blood transfusion (-FOBT) Acute hypoxic respiratory failure Likely KIMI on CKD Left nephrectomy Shocked Liver Dyslipidemia, newly diagnosed Cerebral and cerebellar edema, anoxic brain injury ? Suspected PE with RV failure and PAH * Transthoracic echocardiogram revealed LVEF 40% with normal valves. Global LV hypokinesis. RSVP 40 mmHg with moderately dilated RV which is hypokinetic * Multiple 12 lead electrocardiograms x3: Sinus rhythm with peaked T-waves and no evidence of ST-T wave segment changes * Troponin levels peaked at 8,000s ng/L Plan/Recommendation (Dr. Mitchell) Plan: Transthoracic echo with EF 40%, global LV hypokinesis, moderately dilated and hypokinetic RV, dyskinesis IVS. RVSP 40 mmHg. Given evidence of possible right heart strain suspect possible PE. Patient with severe anemia, continue on heparin 5,000 units SubQ q.8 hours. Monitor H&H and platelet count closely, - FOBT. Unable to have CT pulmonary angio done due to KIMI. Continue hemodynamic support with vasopressors as needed. Repeat CT head consistent with severe diffuse cerebral and cerebellar edema representing anoxic brain injury. Given anoxic brain injury, the patient is not a candidate for invasive cardiac work- up. Continue Nephrology, pulmonology, and neurological recommendations. There is no further cardiac work-up indicated at this time. Kindly call if in need to continue following up. Thank you for allowing us to participate in this patient's care. Critical care time: 40 minutes. This medical document was created using an electronic medical record system with voice recognition software and computerized dictation system. Although this document has been carefully reviewed, there might still be some phonetic and typographical errors. Occasional wrong-word or ``sound-alike substitutions may have occurred due to the inherent limitations of voice recognition software. These areas are purely typographical due to imperfections of the software programs and do not reflect any compromise in the patient's medical care. Please read the chart carefully and recognize, using context, where these substitutions have occurred. Plan discussed with: Spouse, Daughter, Other Dietary Evaluation Review Comments: 1. nepro 35/hr providing 68g pro, 1487kcal, 611ml free water, meeting 107% energy needs, 80% protein needs 2. Increase amount of Protein support for wound healing when/if pt's kidney function impvoes. F/U and reassess when pt is off vent and PRN. Expected Outcomes/Goals: Adequate nutrition support for being on mechanical ventilation CC Plasma Assessment Blood Product Administration S: 06:05 Date of Service: Sep 07, 2025 Billing Provider: GAB GRANT Cardiology Common Codes: [id number] CARE 30-74 MIN GAB GRATN Sep 07, 2025 10:30
[2025-09-07] MEDS: FUROSEMIDE 100 MG/10ML VIAL IV ONE (14:53)
--- NOTE | 2025-09-07 15:12 | DVHPN2 ---
Progress Note Date Seen: Sep 07, 2025 Resident Creating Document: CHIDI BOWERS RESIDENT Medical Necessity Reason Pt with a Central, PICC or Fol: No The following are medically ne: Central Line, Sams Catheter Subjective Review of Systems Patient seen and examined at the bedside. Unable to obtain ROS due to patient's clinical status currently intubated and on mechanical ventilation. Changes from previous H/P or p: No Changes Objective vital signs Vital Sign Date Time Temp Pulse Resp B/P (MAP) Pulse Ox O2 Delivery O2 Flow Rate FiO2 09/07/25 14:53 104/57 09/07/25 14:15 71 12 98 09/07/25 14:00 Mechanical Ventilator+ 30 30 09/07/25 12:00 97.7 97.7 09/06/25 19:01 50.0 Total Intake and Output 09/06/25 09/06/25 09/07/25 15:00 23:00 07:00 Intake Total 341.25 ml 33.75 ml 195.00 ml Output Total 150 ml 100 ml Balance 341.25 ml -116.25 ml 95.00 ml medications Current Medications Medications Dose Ordered Sig/Ese Route Start Time Stop Time Status Last Admin Dose Admin Norepinephrine Bitartrate 250 ml @ 3.75 mls/hr Q24H IV 09/04/25 02:00 09/07/25 04:25 3.75 MLS/HR Epinephrine HCl 250 ml @ 7.5 mls/hr Q24H IV 09/04/25 02:00 09/04/25 01:50 7.5 MLS/HR Midazolam HCl 100 ml @ 1 mls/hr Q24H IV 09/04/25 05:00 09/04/25 04:28 1 MLS/HR Ceftriaxone Sodium 50 ml @ 100 mls/hr DAILY@09 IV 09/05/25 09:00 09/07/25 09:07 100 MLS/HR Vancomycin HCl 0 ml @ 0 mls/hr PER PHARMACY IV 09/04/25 05:15 Diagnostic Test (Pha) 1 strip ACHS 09/04/25 07:00 09/07/25 11:50 1 STRIP Insulin Human Regular ACHS SC 09/04/25 07:00 09/07/25 11:56 2 UNITS Dextrose 50 ml UD PRN IV 09/04/25 05:15 Propofol 100 ml @ 1.95 mls/hr Q24H IV 09/04/25 08:45 09/05/25 02:30 1.95 MLS/HR Pantoprazole Sodium 40 mg DAILY IV 09/06/25 10:00 09/07/25 09:07 40 MG Azithromycin 250 ml @ 125 mls/hr DAILY IV 09/06/25 10:00 09/07/25 10:00 125 MLS/HR Enteral Nutritional Formula 1,000 ml 35ML/HR GT 09/06/25 11:00 Heparin Sodium (Porcine) 5,000 units Q8HR SC 09/06/25 14:00 09/07/25 05:52 5,000 UNITS Furosemide 80 mg BIDD IV 09/07/25 18:00 Examination General Appearance: Alert, Oriented X3, Cooperative, No acute distress HEENT: Bilateral pupils are dilated, and nonreactive to the light Respiratory: Clear to auscultation, Normal air movement Cardiovascular: Regular rate, Normal S1, Normal S2, No murmurs, no chest wall tenderness Abdominal: Normal bowel sounds, Soft, No tenderness, No hepatospenomegaly, No masses Extremities: No clubbing, No cyanosis, No edema, Normal pulses, No tenderness/swelling Skin: No rashes, No breakdown, No significant lesion Neuro: Absent gag reflex Psych/Mental Status: Mental status NL, Mood NL laboratory and microbiology Laboratory Tests 09/07/25 03:50 Test 09/07/25 03:50 Range/Units Serum Glucose 124 H 74-106 mg/dL Microbiology Date/Time Source Procedure Growth Status 09/04/25 23:21 Urine - Sams [place] Urine Culture - Final Complete 09/04/25 10:00 Nose MRSA Screen - Final Complete 09/04/25 04:22 Sputum Expectorated Sputum Gram Stain - Final Complete 09/04/25 04:22 Respiratory Culture - Final Staphylococcus aureus Complete 09/04/25 01:40 Blood Blood Culture - Preliminary NO GROWTH AFTER 72 HOURS OF INCUBATION. Resulted Labs and/or images reviewed: Labs reviewed by me, Image(s) reviewed by me Problem List/Assessment/Plan Problem List/Assessment/Plan KIMI, (baseline not available), due to cardiac arrest//ATN Hyperkalemia Metabolic acidosis Status post cardiac arrest, Anoxic encephalopathy Cardiogenic/septic shock NSTEMI Anxiety and depression Plan/recommendation: IV Lasix 80 mg BID Vasopressor per primary team We will evaluate kidney function on daily basis, Avoid nephrotoxic medication Strict I&Os We will follow up with the patient Ct head--anoxic encephalopathy Poor prognosis Case discussed with Dr. Ahumada Plan discussed with: Spouse, Daughter Dietary Evaluation Review Comments: 1. nepro 35/hr providing 68g pro, 1487kcal, 611ml free water, meeting 107% energy needs, 80% protein needs 2. Increase amount of Protein support for wound healing when/if pt's kidney function impvoes. F/U and reassess when pt is off vent and PRN. Expected Outcomes/Goals: Adequate nutrition support for being on mechanical ventilation ADDENDUM ADDENDUM seen with resident in ICU case discussed with at bedside questions answered KIMI due to cardiac arrest , ATN noted high probability patient had underlying autoimmune kidney disease prior to event solitary kidney w/ nonobstructive kidney stone anoxic brain injury hypervolemia, respiratory failure renal function declining due to ischemic injury primary ongoing discussions about goals of care given poor neurologic findings increase diuretic dose, renal replacement discussed but is not a residential option if patient has no neurologic function CC Plasma Assessment Blood Product Administration S: 06:05 CHIDI BOWERS RESIDENT Sep 07, 2025 15:12 DAXA AHUMADA MD Sep 07, 2025 20:34
[2025-09-07] MEDS: FUROSEMIDE 100 MG/10ML VIAL IV SCH (17:33)
[2025-09-07] MEDS: AMPICILLIN & SULBACTAM SODIUM 3 GM in SODIUM CHL 0.9% 100 ML IV SCH (18:37)
--- NOTE | 2025-09-07 19:06 | DVHPNRES ---
Progress Note Date Seen: Sep 07, 2025 Resident Creating Document: FRANCIS PRESSLEY RESIDENT Has the PT tested + for MRSA If YES, has PT been informed?: No Medical Necessity Reason Pt with a Central, PICC or Fol: No The following are medically ne: Central Line, Sams Catheter Subjective Review of Systems The patient is a 40-year-old female with past medical history of anxiety, UTIs, and kidney stones who presented to [facility] ED for evaluation of cardiac arrest. As reported by EMS/family, patient had cardiac arrest, was asystole 1238 a.m., CPR initiated by family. Patient was initially anxious but was not having any complaints like chest pain or shortness of breath. EMS were on the scene within 5 minutes, CPR continued, patient was given IV fluid, epinephrine x2, became VFib so patient was shocked at 100 joules, Narcan given, became asystole again upon arrival at ER at 0108 hours, blood sugar upon arrival was 43, ROSC obtained at 0112 a.m. Family also reports that patient was depressed for the past 5 years, she has been staying in bed with decreased oral intake, had a fall injury in April resulting in arm and hip fracture. They denied any other significant past medical history. Patient was seen and evaluated in the ED, laboratory data shows WBC 8.8, hemoglobin 6.4, hematocrit 25.0, platelets 260, sodium 151, potassium 6.3, BUN 29, creatinine 2.52, GFR 24, glucose 146, anion gap 28.001, calcium 7.9, lactic acid 21.1 trending down to 15.2, magnesium 4.1, AST 2482, ALT 1430, troponin 2769, BNP 8.48, lipase 31, protein 4.8, albumin 2.7, blood pressure 151/22 trending up to 107/30, heart rate 106, temperature 94.2 F, O2 saturation 97% on ventilator. Head CT showed no acute intracranial abnormality. Patient was started on IV antibiotic regimen vancomycin, please see medication orders section in the computer. On my assessment, patient remains fully intubated, no diaphoresis, no diarrhea, vomiting, no fever. Patient was admitted for further evaluation and medical management. past surgical history; family denies family history: noncontributory past social history: patient lives with the family, denies any smoking, alcohol, drug use 09/06/25: patient seen in ICU. Patient is intubated, on Levophed o, off sedation. Head CT showed diffuse cerebral and cerebellar edema due to anoxic brain injury. neurology following, neurology stated poor prognosis. Kidney functions worsening. Patient's family states before admission patient has seizure-like activity, loss of consciousness which was on and off during the whole day. 09/07/25 40-year-old female in the ICU following cardiopulmonary arrest on 09/04/25, now with severe anoxic brain injury. Today, the patient remains: * Intubated, mechanically ventilated * Off all sedation * No spontaneous movements * No response to pain * No brainstem reflexes: absent corneal, cough, gag, oculocephalic reflexes * Pupils 8 mm, fixed, nonreactive * Family updated todaypoor prognosis discussed, but family chooses FULL CODE and wants everything done Overnight: * Urine output 250 mL total/ 0.15ML/KG/HR * Sams in place, urine [id number] annia * Tube feeds restarted, residuals 15 mL, tolerated * Small bowel movement today * Yamileth-care and sacral wound care performed EEG completed at bedside today for assessment of anoxic injury. Hemodynamics: * On norepinephrine drip for shock Respiratory: * Lungs clear except mild right basal infiltrates Consults: Neurology and Nephrology actively following. Objective vital signs Vital Sign Date Time Temp Pulse Resp B/P (MAP) Pulse Ox O2 Delivery O2 Flow Rate FiO2 09/07/25 18:46 63 12 118/62 (80) 98 30 09/07/25 16:00 96.7 96.7 09/07/25 16:00 Mechanical Ventilator+ 09/06/25 19:01 50.0 Total Intake and Output 09/06/25 09/06/25 09/07/25 15:00 23:00 07:00 Intake Total 341.25 ml 33.75 ml 195.00 ml Output Total 150 ml 100 ml Balance 341.25 ml -116.25 ml 95.00 ml medications Current Medications Medications Dose Ordered Sig/Ese Route Start Time Stop Time Status Last Admin Dose Admin Norepinephrine Bitartrate 250 ml @ 3.75 mls/hr Q24H IV 09/04/25 02:00 09/07/25 04:25 3.75 MLS/HR Diagnostic Test (Pha) 1 strip ACHS 09/04/25 07:00 09/07/25 16:47 1 STRIP Insulin Human Regular ACHS SC 09/04/25 07:00 09/07/25 11:56 2 UNITS Dextrose 50 ml UD PRN IV 09/04/25 05:15 Pantoprazole Sodium 40 mg DAILY IV 09/06/25 10:00 09/07/25 09:07 40 MG Enteral Nutritional Formula 1,000 ml 35ML/HR GT 09/06/25 11:00 Furosemide 80 mg BIDD IV 09/07/25 18:00 09/07/25 17:33 80 MG Ampicillin Sodium/ Sulbactam Sodium 3 gm/Sodium Chloride 100 ml @ 100 mls/hr Q12H IV 09/07/25 16:30 09/07/25 18:37 100 MLS/HR Examination General: Intubated, unresponsive, critically ill Neuro: * GCS 3T * Pupils 8 mm fixed, nonreactive * No motor response * No brainstem reflexes HEENT: ET tube secured, OG tube in place Resp: * Ventilator breaths * Mild right basal infiltrate * Otherwise clear CV: * Regular rhythm * Pulses present * No murmurs Abdomen: Soft, nondistended, NABS : Sams in place, minimal [id number] urine Extremities: Non-pitting edema Skin: Stage 1 sacral pressure ulcer, yamileth-care performed laboratory and microbiology Laboratory Tests 09/07/25 03:50 Test 09/07/25 03:50 Range/Units Serum Glucose 124 H 74-106 mg/dL Microbiology Date/Time Source Procedure Growth Status 09/04/25 23:21 Urine - Sams Port Urine Culture - Final Complete 09/04/25 10:00 Nose MRSA Screen - Final Complete 09/04/25 04:22 Sputum Expectorated Sputum Gram Stain - Final Complete 09/04/25 04:22 Respiratory Culture - Final Staphylococcus aureus Complete 09/04/25 01:40 Blood Blood Culture - Preliminary NO GROWTH AFTER 72 HOURS OF INCUBATION. Resulted Problem List/Assessment/Plan Problem List/Assessment/Plan ASSESSMENT /PLAN SYSTEM HODGE NEUROLOGY * Severe anoxic brain injury; extremely poor prognosis Metabolic encephalopathy (secondary to anoxic injury) History of anxiety Seizure like activity -off sedation -neurology on board - neurology stated poor prognosis * Continue neuro checks Q1H * Maintain normothermia * Avoid hypotension/hypoxia * EEG completed today, follow final read CARDIOVASCULAR Postcardiac arrest state (VF arrest - ROSC) . Mixed cardiogenic + septic shock on norepinephrine # heart failure with reduced ejection fraction likely post cardiac arrest # Dyslipidemia # Non ST-elevation myocardial infarction likely type 2 status post cardiac arrest, type 1 not ruled out -head CT -ekg -echo : Conclusion MODERATELY DILATED RV AND IS HYPOKINETIC DYSKINESIS OF IVS RVSP IS 40 MM OF HG AND IS HIGH STUDY CONFIRM RV FAILURE GLOBAL LV HYPOKINESIS LV EF IS 40% AND IS REDUCED NORMAL VALVES NO EFFUSION * Continue norepinephrine to maintain MAP ?65 * Monitor for multi-organ shock progression * Cardiology involved * Daily EKG * Trend troponins Given anoxic brain injury, the patient is not a candidate for invasive cardiac work-up as per cardiology continue conservative medical management. RESPIRATORY Acute hypoxic respiratory failure requiring mechanical ventilation * AC/VC: RR 12, TV 450, PEEP 5, FiO? 30% * VAP bundle * Daily CXR * Oral care Q4H * SBT contraindicated INFECTIOUS DISEASE MSSA tracheobronchitis / possible aspiration pneumonia * Continue Unasyn 3 g IV Q12H (MSSA-sensitive) * Monitor sputum, blood, urine cultures * COVID/Flu negative * WBC 13.4 track trend HEMATOLOGY Microcytic anemia (Hgb 7.8) post transfusion # severe anemia requiring blood transfusion # coagulopathy likely due to sepsis Thrombocytopenia (Plt 124) -1 unit of PRBC transfused * Hgb 7.8 , Discontinued Heparin, transfuse only if <7 * Platelets 124 * DVT prophylaxis: Heparin held due to anemia * Use SCDs RENAL * KIMI stage 3 on solitary kidney * Cr 5.50, BUN 58 IV Lasix 80 mg BID * Strict I&O * Avoid nephrotoxins * Nephrology following hyperkalemia Corrected # hypernatremia -initially corrected with a half NS # metabolic acidosis due to sepsis Monitor ABG # respiratory alkalosis Decrease respiratory rate to 12 # hypomagnesemia Monitor Urology # complicated urinary tract infection -on antibiotics # Punctate nonobstructing right renal calculi. Seen on ultrasound # Left nephrectomy. Seen on ultrasound GI / NUTRITION Shock liver (AST/ALT markedly elevated) * Continue Nepro tube feeds @ 35 mL/hr * Check residuals Q4H * PPI for ulcer prophylaxis * Monitor stool output ENDOCRINE * Insulin ACHS * Maintain BG [id number] SKIN / MSK * Stage 1 sacral ulcer * Wound care following * Reposition Q2H LINES / TUBES * ETT (09/04) * OG tube * Left femoral central line (09/04) * Sams catheter * Daily line necessity review PROPHYLAXIS * DVT: SCDs only * GI: Pantoprazole * Ulcer: Q2H turns * VAP: oral care, CHG, HOB elevation CODE STATUS FULL CODE Family updated today; despite detailed prognosis counseling, they request full aggressive measures and full code total time spent >20 mins CRITICAL CARE TIME 83 minutes of critical care time spent today, excluding procedure time. . DISCUSSION WITH ATTENDING Case reviewed in detail with attending physician Dr Singleton. Management plan jointly agreed upon. including the clinical presentation, diagnostic workup, and comprehensive management plan. The patient's family was present for the discussion and demonstrated understanding of his condition and the proposed plan. Plan discussed with: Spouse, Daughter My Orders My Orders Orders - FRANCIS PRESSLEY Procedure Category Date Status Time Complete Blood Count LAB 09/08/25 Verified 04:00 Comprehensive LAB 09/08/25 Verified Metabolic Panel 04:00 Chest Xray 1 View XY 09/08/25 Transmitted 04:00 Abg W/ Co-Ox RT 09/08/25 Transmitted 04:00 Hemoglobin & LAB 09/08/25 Verified Hematocrit 12:00 Magnesium LAB 09/08/25 Verified 04:00 Dietary Evaluation Review Comments: 1. nepro 35/hr providing 68g pro, 1487kcal, 611ml free water, meeting 107% energy needs, 80% protein needs 2. Increase amount of Protein support for wound healing when/if pt's kidney function impvoes. F/U and reassess when pt is off vent and PRN. Expected Outcomes/Goals: Adequate nutrition support for being on mechanical ventilation CC Plasma Assessment Blood Product Administration S: 06:05 Date of Service: Sep 07, 2025 Billing Provider: KEYA SINGLETON MD Common Visit Codes: 93756-[id number] CARE 30-74 MIN, [id number] CARE-EACH +30MIN FRANCIS PRESSLEY Sep 07, 2025 19:06 KEYA SINGLETON MD Sep 08, 2025 14:16
--- NOTE | 2025-09-07 23:27 | DVHPN2 ---
Consult Progress Note Date Seen: Sep 07, 2025 Subjective Other Systems: Patient was seen and evaluated in follow up in the ICU. Patient is intubated and sedated on ventilator. 30% FiO2. WBC 13.4, HGB 7.8, HCT 24.4, PLT 124, BUN 58, Inside Sales Manager 5.50, CA 7.5, AST 340, ALT 766, ALK PHOS 153. AST 729, ALT 1137. Chest x-ray shows infiltrates are seen at the right base. Objective vital signs Vital Sign Date Time Temp Pulse Resp B/P (MAP) Pulse Ox O2 Delivery O2 Flow Rate FiO2 09/07/25 23:00 72 12 101/53 (69) 97 09/07/25 22:13 30 09/07/25 22:00 Mechanical Ventilator+ 09/07/25 20:00 97.9 97.9 09/06/25 19:01 50.0 Total Intake and Output 09/06/25 09/06/25 09/07/25 15:00 23:00 07:00 Intake Total 341.25 ml 33.75 ml 195.00 ml Output Total 150 ml 100 ml Balance 341.25 ml -116.25 ml 95.00 ml medications Current Medications Medications Dose Ordered Sig/Ese Route Start Time Stop Time Status Last Admin Dose Admin Norepinephrine Bitartrate 250 ml @ 3.75 mls/hr Q24H IV 09/04/25 02:00 09/07/25 04:25 3.75 MLS/HR Diagnostic Test (Pha) 1 strip ACHS 09/04/25 07:00 09/07/25 22:03 1 STRIP Insulin Human Regular ACHS SC 09/04/25 07:00 09/07/25 22:02 2 UNITS Dextrose 50 ml UD PRN IV 09/04/25 05:15 Pantoprazole Sodium 40 mg DAILY IV 09/06/25 10:00 09/07/25 09:07 40 MG Enteral Nutritional Formula 1,000 ml 35ML/HR GT 09/06/25 11:00 Furosemide 80 mg BIDD IV 09/07/25 18:00 09/07/25 17:33 80 MG Ampicillin Sodium/ Sulbactam Sodium 3 gm/Sodium Chloride 100 ml @ 100 mls/hr Q12H IV 09/07/25 16:30 09/07/25 18:37 100 MLS/HR Examination: GENERAL:Abnormal, NECK:Normal, LUNGS:Abnormal (Endotracheally intubated), CVS:Abnormal (NSR. On low-dose vasopressor), SKIN:Normal, NEURO:Abnormal (Bilateral fixed dilated pupils. -cough/gag reflex) laboratory and microbiology Laboratory Tests 09/07/25 03:50 Test 09/07/25 03:50 Range/Units Serum Glucose 124 H 74-106 mg/dL Problem List/Assessment/Plan Problem List/Assessment/Plan Problem List Cardiopulmonary arrest with ROSC. Ventricular fibrillation arrest with defibrillation at 100J. Non ST-elevation myocardial infarction. Acute anemia status post blood transfusion (-FOBT). Acute hypoxic respiratory failure. Likely KIMI on CKD. Left nephrectomy. Shocked Liver. Dyslipidemia, newly diagnosed. Cerebral and cerebellar edema, anoxic brain injury. ? Suspected PE with RV failure and PAH. Plan/Recommendation Continued all current supportive medical care. Patient has been seen by Christian Mc COTTON SAMPLER on my behalf, him and I discussed the plan with the patient. Transthoracic echo with EF 40%, global LV hypokinesis, moderately dilated and hypokinetic RV, dyskinesis IVS. RVSP 40 mmHg. Given evidence of possible right heart strain suspect possible PE. Patient with severe anemia, continue on heparin 5,000 units SubQ q.8 hours. Monitor H&H and platelet count closely, -FOBT. Unable to have CT pulmonary angio done due to KIMI. Continue hemodynamic support with vasopressors as needed. Repeat CT head consistent with severe diffuse cerebral and cerebellar edema representing anoxic brain injury. Given anoxic brain injury, the patient is not a candidate for invasive cardiac work-up. Continue Nephrology, pulmonology, and neurological recommendations. We will continue conservative medical management. Additional plan as per the hospital course. Plan discussed with: Other Dietary Evaluation Review Comments: 1. nepro 35/hr providing 68g pro, 1487kcal, 611ml free water, meeting 107% energy needs, 80% protein needs 2. Increase amount of Protein support for wound healing when/if pt's kidney function impvoes. F/U and reassess when pt is off vent and PRN. Expected Outcomes/Goals: Adequate nutrition support for being on mechanical ventilation CC Plasma Assessment Blood Product Administration S: 06:05 Date of Service: Sep 07, 2025 Billing Provider: RISHI SOARES MD Cardiology Common Codes: [id number] HOSP CARE(High, [id number] CARE 30-74 MIN RISHI SOARES MD Sep 07, 2025 23:27
[2025-09-08] VITALS (106 sets, daily range): BP systolic 86–125; BP diastolic 32–61; PULSE 12–72; RESP 10–16; TEMP 98.3–99.4; O2SAT 94–100
--- NOTE | 2025-09-08 03:14 | DVH ---
CHEST RADIOGRAPH Indication: evaluate for acute hypoxic respiratory failure Technique: 1 view Comparison: XY CHEST XRAY 1 VIEW on DOS: 09/07/25, XY CHEST PORTABLE on DOS: 09/06/25, XY CHEST PORTABLE on DOS: 09/05/25, XY CHEST XRAY 1 VIEW on DOS: 09/04/25 FINDINGS: Lines and Tubes: Unchanged. Lungs/Pleura: Unchanged. Cardiomediastinum: Unchanged. Other: Unchanged osseous structures. IMPRESSION: 1. No significant change from the previous study. Stable support devices. Persistent bilateral mixed pulmonary opacities and probable small pleural effusions.
[2025-09-08 04:38] LABS: Hemoglobin 8.0 g/dL (12.2-16.2); Mean Corpuscular Volume 69.0 fL (80.0-100.0); Nucleated Red Blood Cells % 0.1 %
[2025-09-08 04:41] LABS: Hematocrit 24.7 % (36.0-46.0); Mean Corpuscular Hemoglobin 22.4 pg (28.0-32.0)
[2025-09-08 05:01] LABS: Anion Gap 13 (5-15); BUN/Creatinine Ratio 11.0 (10.0-20.0); Blood Urea Nitrogen 74 mg/dL (9-23); Carbon Dioxide 27 mmol/L (20-31); Chloride 98 mmol/L (98-107); Glucose 104 mg/dL (74-106); Magnesium 1.9 mg/dL (1.6-2.6); Potassium 4.5 mmol/L (3.5-5.1); Sodium 138 mmol/L (136-145)
[2025-09-08 05:02] LABS: Alanine Aminotransferase 540 U/L (7-40); Albumin 2.3 g/dL (3.2-4.8); Alkaline Phosphatase 242 U/L (46-116); Bilirubin, Total 0.2 mg/dL (0.2-1.0); Calcium 7.7 mg/dL (8.7-10.4); Total Protein 4.5 g/dL (5.7-8.2)
[2025-09-08 07:41] LABS: Base Excess -2.2 mmol/L (-2.0-3.0)
--- NOTE | 2025-09-08 09:55 | DVHPN2 ---
Progress Note - Dictate Date Seen: Sep 08, 2025 Has the PT tested + for MRSA If YES, has PT been informed?: No Medical Necessity Reason Pt with a Central, PICC or Fol: No The following are medically ne: Central Line, Sams Catheter Subjective Ms. Murillo is a 40 years old female with a history of kidney stone, depression, anxiety, she was [facility] to [facility] on 09/04[facility]2025 with a chief complaint of cardio pulmonary arrest I have seen and examined the patient, I have discussed with her nurse, I have discussed with her and daughter, she is nonresponsive to painful stimuli, pupils are nonresponsive, and unequal Urinalysis, 09/04/2025: WBC: 37, urine leukocyte esterase: Negative UDS, 09/04/2025: Negative Plasma alcohol, 09/04/2025: <3 ABG, 09/10/2025: Metabolic acidosis WBC/HB/PLT/MCV, 09/04/2025: 8.8/6.4/260/79.8 PT/INR/ABG, 09/04/2025: 70.4/1.73/ Na, 09/04/2025: 151, 148, 140 K, 09/04/2025: 6.3, 4.6, 3.2 BUN/CR, 09/04/2025: 30/2.69 TBI/AST/ALT/AP, 09/04/2025: 0.11/2481/4030/74, 0.01/5737/2100/93 Glucose, 09/04/2025: 146, 294, 503 HGB A1c, 09/04/2025: 5 Lactic acid, 09/04/2025: 21.1, or 15.2 Troponin one high sensitivity, 09/04/2025: 2769, 5664, 7574 TG/HDL/LDL/HDL, 09/04/2025: 186/86/41/25 Extremity venous study, 09/04/2025: NO SONOGRAPHIC EVIDENCE FOR DEEP VENOUS THROMBOSIS IN THE BILATERAL LOWER EXTREMITY VEINS CT head, 09/04/25: No acute intracranial abnormality (I saw evidence suggestive of early diffuse brain edema) CT head 09/05/25: Findings are consistent with severe diffuse cerebral and cerebellar edema possibly representing anoxic brain injury. vital signs Vital Sign Date Time Temp Pulse Resp B/P (MAP) Pulse Ox O2 Delivery O2 Flow Rate FiO2 09/08/25 09:24 68 12 108/52 (70) 97 30 09/08/25 07:30 Mechanical Ventilator+ 09/08/25 04:00 99.2 99.2 09/06/25 19:01 50.0 Total Intake and Output 09/07/25 09/07/25 09/08/25 15:00 23:00 07:00 Intake Total 345.00 ml 270.75 ml 502.5 ml Output Total 100 ml 100 ml Balance 345.00 ml 170.75 ml 402.5 ml medications Current Medications Medications Dose Ordered Sig/Ese Route Start Time Stop Time Status Last Admin Dose Admin Norepinephrine Bitartrate 250 ml @ 3.75 mls/hr Q24H IV 09/04/25 02:00 09/07/25 04:25 3.75 MLS/HR Diagnostic Test (Pha) 1 strip ACHS 09/04/25 07:00 09/08/25 07:01 1 STRIP Insulin Human Regular ACHS SC 09/04/25 07:00 09/08/25 06:36 2 UNITS Dextrose 50 ml UD PRN IV 09/04/25 05:15 Pantoprazole Sodium 40 mg DAILY IV 09/06/25 10:00 09/08/25 08:59 40 MG Enteral Nutritional Formula 1,000 ml 35ML/HR GT 09/06/25 11:00 Furosemide 80 mg BIDD IV 09/07/25 18:00 09/08/25 05:48 80 MG Ampicillin Sodium/ Sulbactam Sodium 3 gm/Sodium Chloride 100 ml @ 100 mls/hr Q12H IV 09/07/25 16:30 09/08/25 04:50 100 MLS/HR objective The patient is well-nourished and well-developed with no distress. The patient is intubated MENTAL STATUS: Nonresponsive stroke painful stimuli CRANIAL NERVES: Pupils are equal, round, dilated and fixed, Rt: 4-5mm, Lt: 7mm. There are no corneal reflexes and doll's eyes phenomenon. No signs of facial weakness. There are no gagging or coughing reflexes SENSATION: No responses to strong pain stimuli. MOTOR: Normal tone in the upper and lower extremity. Normal muscle bulk. No fasciculations. No spontaneous movement. REFLEXES: Deep tendon reflexes are symmetrical. No pathological reflexes. CEREBELLAR/COORDINATION: Deferred GAIT/STATION: deferred. laboratory and microbiology Laboratory Tests 09/08/25 03:40 Test 09/08/25 03:40 Range/Units Serum Glucose 104 74-106 mg/dL Problem List Cardiopulmonary arrest Coma/Metabolic/hypoxic encephalopathy Metabolic acidosis Acute respiratory failure Elevated troponin/heart attack Severe anemia Shocked liver Hypernatremia Assessment/Plan Monitoring Supportive treatment ICU care Follow up labs Stabilize vitals/pressor drip Respiratory support/vent management Oxygen Antibiotics DVT prophylaxis GI prophylaxis More recommendation per clinical course This medical document was created using an electronic medical record system with [employer] dictation system. Although this document has been carefully reviewed, there may still be some phonetic and typographical errors. These areas are purely typographical due to imperfections of the software programs, and do not reflect any compromise in the patient's medical care. Prognosis guarded Dietary Evaluation Review Comments: 1. nepro 35/hr providing 68g pro, 1487kcal, 611ml free water, meeting 107% energy needs, 80% protein needs 2. Increase amount of Protein support for wound healing when/if pt's kidney function impvoes. F/U and reassess when pt is off vent and PRN. Expected Outcomes/Goals: Adequate nutrition support for being on mechanical ventilation Plan discussed with: Spouse, Daughter, Other Critical Care Time(min): 35 CC Plasma Assessment Blood Product Administration S: 06:05 ALEXIS DEL ANGEL MD Sep 08, 2025 09:55
[2025-09-08] MEDS: FUROSEMIDE INJECTION 100 MG in SODIUM CHL 0.9% 100 ML IV SCH (12:06)
[2025-09-08 12:07] LABS: Anti-Centromere B Antibody <0.2 AI (0.0-0.9); Anti-Jo-1 Antibody <0.2 AI (0.0-0.9); Anti-dsDNA Antibody 1 IU/mL (0-9); Antichromatin Antibody 0.2 AI (0.0-0.9); Antiscleroderma-70 Antibody <0.2 AI (0.0-0.9); Sjogren's Anti-SS-A Antibody <0.2 AI (0.0-0.9); Sjogren's Anti-SS-B Antibody <0.2 AI (0.0-0.9)
--- NOTE | 2025-09-08 13:09 | DVHPNRES ---
Progress Note Date Seen: Sep 08, 2025 Resident Creating Document: FRANCIS PRESSLEY RESIDENT Has the PT tested + for MRSA If YES, has PT been informed?: No Medical Necessity Reason Pt with a Central, PICC or Fol: Yes The following are medically ne: Central Line, Sams Catheter Subjective Review of Systems The patient is a 40-year-old female with past medical history of anxiety, UTIs, and kidney stones who presented to [facility] ED for evaluation of cardiac arrest. As reported by EMS/family, patient had cardiac arrest, was asystole 1238 a.m., CPR initiated by family. Patient was initially anxious but was not having any complaints like chest pain or shortness of breath. EMS were on the scene within 5 minutes, CPR continued, patient was given IV fluid, epinephrine x2, became VFib so patient was shocked at 100 joules, Narcan given, became asystole again upon arrival at ER at 0108 hours, blood sugar upon arrival was 43, ROSC obtained at 0112 a.m. Family also reports that patient was depressed for the past 5 years, she has been staying in bed with decreased oral intake, had a fall injury in April resulting in arm and hip fracture. They denied any other significant past medical history. Patient was seen and evaluated in the ED, laboratory data shows WBC 8.8, hemoglobin 6.4, hematocrit 25.0, platelets 260, sodium 151, potassium 6.3, BUN 29, creatinine 2.52, GFR 24, glucose 146, anion gap 28.001, calcium 7.9, lactic acid 21.1 trending down to 15.2, magnesium 4.1, AST 2482, ALT 1430, troponin 2769, BNP 8.48, lipase 31, protein 4.8, albumin 2.7, blood pressure 151/22 trending up to 107/30, heart rate 106, temperature 94.2 F, O2 saturation 97% on ventilator. Head CT showed no acute intracranial abnormality. Patient was started on IV antibiotic regimen vancomycin, please see medication orders section in the computer. On my assessment, patient remains fully intubated, no diaphoresis, no diarrhea, vomiting, no fever. Patient was admitted for further evaluation and medical management. past surgical history; family denies family history: noncontributory past social history: patient lives with the family, denies any smoking, alcohol, drug use 09/06/25: patient seen in ICU. Patient is intubated, on Levophed o, off sedation. Head CT showed diffuse cerebral and cerebellar edema due to anoxic brain injury. neurology following, neurology stated poor prognosis. Kidney functions worsening. Patient's family states before admission patient has seizure-like activity, loss of consciousness which was on and off during the whole day. 09/07/25 40-year-old female in the ICU following cardiopulmonary arrest on 09/04/25, now with severe anoxic brain injury. * Intubated, mechanically ventilated * Off all sedation * No spontaneous movements * No response to pain * No brainstem reflexes: absent corneal, cough, gag, oculocephalic reflexes * Pupils 8 mm, fixed, nonreactive * Family updated todaypoor prognosis discussed, but family chooses FULL CODE and wants everything done Overnight: * Urine output 250 mL total/ 0.15ML/KG/HR * Sams in place, urine [id number] annia * Tube feeds restarted, residuals 15 mL, tolerated * Small bowel movement today * Yamileth-care and sacral wound care performed EEG completed at bedside today for assessment of anoxic injury. Hemodynamics: * On norepinephrine drip for shock Respiratory: * Lungs clear except mild right basal infiltrates Consults: Neurology and Nephrology actively following. 09/08/25 The patient remains critically ill, intubated, mechanically ventilated, and off all sedation since 09/05. Overnight and through today, there continues to be no neurologic improvement. * Mental status unchanged and remains unresponsive/comatose * EEG yesterday inconclusive. Neurology now ordering brain perfusion scan today for brain evaluation * On norepinephrine drip, titrated 8 - 4 mcg/min * CXR today: no major change, persistent bilateral mixed pulmonary opacities and probable small pleural effusions * Oliguria continues * Urine output overnight: 100 mL * Total UO last 24h: 200 mL * Nephrology discontinued Lasix 80 mg BID * Lasix drip started * IR consulted for tunneled dialysis catheter placed today * Plan for hemodialysis/[employer] likely tomorrow Patient remains in critical multiorgan dysfunction with severe irreversible anoxic brain injury, worsening renal failure requiring [employer] preparation, hemodynamic instability requiring vasopressors, and persistent respiratory failure on the ventilator. No neurologic recovery. Full code per family request. Objective vital signs Vital Sign Date Time Temp Pulse Resp B/P (MAP) Pulse Ox O2 Delivery O2 Flow Rate FiO2 09/08/25 12:06 109/53 09/08/25 11:18 68 12 98 30 09/08/25 10:00 Mechanical Ventilator+ 09/08/25 08:00 98.7 98.7 09/06/25 19:01 50.0 Total Intake and Output 09/07/25 09/07/25 09/08/25 15:00 23:00 07:00 Intake Total 345.00 ml 270.75 ml 502.5 ml Output Total 100 ml 100 ml Balance 345.00 ml 170.75 ml 402.5 ml medications Current Medications Medications Dose Ordered Sig/Ese Route Start Time Stop Time Status Last Admin Dose Admin Norepinephrine Bitartrate 250 ml @ 3.75 mls/hr Q24H IV 09/04/25 02:00 09/07/25 04:25 3.75 MLS/HR Diagnostic Test (Pha) 1 strip ACHS 09/04/25 07:00 09/08/25 07:01 1 STRIP Insulin Human Regular ACHS SC 09/04/25 07:00 09/08/25 06:36 2 UNITS Dextrose 50 ml UD PRN IV 09/04/25 05:15 Pantoprazole Sodium 40 mg DAILY IV 09/06/25 10:00 09/08/25 08:59 40 MG Enteral Nutritional Formula 1,000 ml 35ML/HR GT 09/06/25 11:00 Furosemide 80 mg BIDD IV 09/07/25 18:00 Hold 09/08/25 05:48 80 MG Furosemide 100 mg/ Sodium Chloride 110 ml @ 11 mls/hr Q10H IV 09/08/25 11:00 09/08/25 12:06 11 MLS/HR Ampicillin Sodium/ Sulbactam Sodium 3 gm/Sodium Chloride 100 ml @ 100 mls/hr DAILY IV 09/09/25 10:00 Examination General: Intubated, unresponsive, critically ill Neuro: * GCS 3T * Pupils 8 mm, fixed, nonreactive * No gag/cough/corneal reflex * No withdrawal to pain * No spontaneous respirations HEENT: Conjunctival injection, swollen eyelids, dry mucous membranes Resp: * Clear but diminished breath sounds * No wheezes or crackles * Mechanically ventilated CV: * Regular sinus rhythm * Controlled rate on telemetry * No murmurs * Peripheral pulses present Abdomen: * Soft, non-tender * Hypoactive bowel sounds : * Sams catheter draining minimal urine MSK: * Generalized edema Skin: * Stage 1 sacral skin tear * No rashes Lines: * Left femoral triple lumen central line * Tunneled dialysis catheter (IR today) * Sams catheter * OG tube * ETT laboratory and microbiology Laboratory Tests 09/08/25 03:40 Test 09/08/25 03:40 Range/Units Serum Glucose 104 74-106 mg/dL Microbiology Date/Time Source Procedure Growth Status 09/04/25 23:21 Urine - Sams Port Urine Culture - Final Complete 09/04/25 10:00 Nose MRSA Screen - Final Complete 09/04/25 04:22 Sputum Expectorated Sputum Gram Stain - Final Complete 09/04/25 04:22 Respiratory Culture - Final Staphylococcus aureus Complete 09/04/25 01:40 Blood Blood Culture - Preliminary NO GROWTH AFTER 72 HOURS OF INCUBATION. Resulted Problem List/Assessment/Plan Problem List/Assessment/Plan ASSESSMENT /PLAN SYSTEM HODGE NEUROLOGY * Severe anoxic brain injury; extremely poor prognosis Metabolic encephalopathy (secondary to anoxic injury) # Sedation -off sedation # History of anxiety # Seizure like activity ? -neurology on board - neurology stated poor prognosis * Continue neuro checks Q1H * Maintain normothermia * Avoid hypotension/hypoxia * EEG inconclusive . Brain perfusion scan today for brain evaluation CARDIOVASCULAR Postcardiac arrest state (VF arrest - ROSC) . Mixed cardiogenic + septic shock on norepinephrine # heart failure with reduced ejection fraction likely post cardiac arrest # Dyslipidemia # Non ST-elevation myocardial infarction likely type 2 status post cardiac arrest, type 1 not ruled out -head CT -ekg -echo : Conclusion MODERATELY DILATED RV AND IS HYPOKINETIC DYSKINESIS OF IVS RVSP IS 40 MM OF HG AND IS HIGH STUDY CONFIRM RV FAILURE GLOBAL LV HYPOKINESIS LV EF IS 40% AND IS REDUCED NORMAL VALVES NO EFFUSION * Continue norepinephrine to maintain MAP >65 * Monitor for multi-organ shock progression.* Avoid hypotension to preserve brain perfusion * Cardiology involved * Daily EKG * Trend troponins Given anoxic brain injury, the patient is not a candidate for invasive cardiac work-up as per cardiology continue conservative medical management. RESPIRATORY Acute hypoxic respiratory failure requiring mechanical ventilation * AC/VC: RR 12, TV 450, PEEP 5, FiO2 30% * VAP bundle * Daily CXR * Oral care Q4H * SBT contraindicated INFECTIOUS DISEASE MSSA / possible aspiration pneumonia * Continue Unasyn 3 g IV Q12H (MSSA-sensitive) * Monitor sputum, blood, urine cultures * COVID/Flu negative * WBC 12.9 (mild improvement) HEMATOLOGY Microcytic anemia # severe anemia requiring blood transfusion -1 unit of PRBC transfused # coagulopathy likely due to sepsis Monitor Thrombocytopenia (Plt 124) * * Hgb stable at 8.0 , Discontinued Heparin, transfuse only if <7 * Platelets 124 * DVT prophylaxis: Heparin held due to anemia * Use SCDs RENAL * KIMI stage 3 on solitary kidney BUN 74; Cr 6.74; GFR 7 * Lasix drip initiated * IR placed tunneled dialysis catheter today * Nephrology planning hemodialysis tomorrow * Avoid nephrotoxins * Daily BMP, Mg, Phos hyperkalemia Corrected # hypernatremia -initially corrected with a half NS # metabolic acidosis due to sepsis Monitor ABG # respiratory alkalosis Decrease respiratory rate to 12 # hypomagnesemia Monitor Urology # complicated urinary tract infection -on antibiotics # Punctate nonobstructing right renal calculi. Seen on ultrasound # Left nephrectomy. Seen on ultrasound GI / NUTRITION Shock liver (AST/ALT markedly elevated) * Continue Nepro tube feeds @ 35 mL/hr * Check residuals Q4H * PPI for ulcer prophylaxis * Monitor stool output ENDOCRINE * Insulin ACHS * Maintain BG [id number] SKIN / MSK * Stage 1 sacral ulcer * Wound care following * Reposition Q2H OPHTHALMOLOGY * Conjunctival injection, swollen eyelids * Start Lacri-lube eye drops Q6H LINES / TUBES * ETT (09/04) * OG tube * Left femoral central line (09/04) * Sams catheter * Daily line necessity review PROPHYLAXIS * DVT: SCDs only * GI: Pantoprazole * Ulcer: Q2H turns * VAP: oral care, CHG, HOB elevation SOCIAL WORK / FAMILY SUPPORT * Family updated extensively * Full code requested * Social work available for support CODE STATUS FULL CODE Family updated today; despite detailed prognosis counseling, they request full aggressive measures and full code total time spent >20 mins CRITICAL CARE TIME 83 minutes of critical care time spent today, excluding procedure time. . DISCUSSION WITH ATTENDING Case reviewed in detail with attending physician Dr Singleton. Management plan jointly agreed upon. including the clinical presentation, diagnostic workup, and comprehensive management plan. The patient's family was present for the discussion and demonstrated understanding of his condition and the proposed plan. Plan discussed with: Spouse, Daughter My Orders My Orders Orders - ALLURI,RAGHAVA THOMSON RESIDENT Procedure Category Date Status Time Chest Xray 1 View XY 09/08/25 Resulted 04:00 Abg W/ Co-Ox RT 09/08/25 Logged 04:00 Hemoglobin & LAB 09/08/25 Logged Hematocrit 12:00 Dietary Evaluation Review Comments: 1. nepro 35/hr providing 68g pro, 1487kcal, 611ml free water, meeting 107% energy needs, 80% protein needs 2. Increase amount of Protein support for wound healing when/if pt's kidney function impvoes. F/U and reassess when pt is off vent and PRN. Expected Outcomes/Goals: Adequate nutrition support for being on mechanical ventilation CC Plasma Assessment Blood Product Administration S: 06:05 Date of Service: Sep 08, 2025 Billing Provider: KEYA SINGLETON MD Common Visit Codes: 97756-[id number] CARE 30-74 MIN, [id number]-[id number] CARE-EACH +30MIN FRANCIS PRESSLEY Sep 08, 2025 13:09 KEYA SINGLETON MD Sep 09, 2025 14:04
--- NOTE | 2025-09-08 13:09 | DVHPN2 ---
Progress Note Date Seen: Sep 08, 2025 Resident Creating Document: CHIDI BOWERS RESIDENT Has the PT tested + for MRSA If YES, has PT been informed?: No Medical Necessity Reason Pt with a Central, PICC or Fol: No The following are medically ne: Central Line, Sams Catheter Subjective Review of Systems Patient seen and examined at the bedside. Unable to obtain ROS due to patient's clinical status currently on mechanical ventilation. Changes from previous H/P or p: No Changes Objective vital signs Vital Sign Date Time Temp Pulse Resp B/P (MAP) Pulse Ox O2 Delivery O2 Flow Rate FiO2 09/08/25 12:06 109/53 09/08/25 11:18 68 12 98 30 09/08/25 10:00 Mechanical Ventilator+ 09/08/25 08:00 98.7 98.7 09/06/25 19:01 50.0 Total Intake and Output 09/07/25 09/07/25 09/08/25 15:00 23:00 07:00 Intake Total 345.00 ml 270.75 ml 502.5 ml Output Total 100 ml 100 ml Balance 345.00 ml 170.75 ml 402.5 ml medications Current Medications Medications Dose Ordered Sig/Ese Route Start Time Stop Time Status Last Admin Dose Admin Norepinephrine Bitartrate 250 ml @ 3.75 mls/hr Q24H IV 09/04/25 02:00 09/07/25 04:25 3.75 MLS/HR Diagnostic Test (Pha) 1 strip ACHS 09/04/25 07:00 09/08/25 07:01 1 STRIP Insulin Human Regular ACHS SC 09/04/25 07:00 09/08/25 06:36 2 UNITS Dextrose 50 ml UD PRN IV 09/04/25 05:15 Pantoprazole Sodium 40 mg DAILY IV 09/06/25 10:00 09/08/25 08:59 40 MG Enteral Nutritional Formula 1,000 ml 35ML/HR GT 09/06/25 11:00 Furosemide 80 mg BIDD IV 09/07/25 18:00 Hold 09/08/25 05:48 80 MG Furosemide 100 mg/ Sodium Chloride 110 ml @ 11 mls/hr Q10H IV 09/08/25 11:00 09/08/25 12:06 11 MLS/HR Ampicillin Sodium/ Sulbactam Sodium 3 gm/Sodium Chloride 100 ml @ 100 mls/hr DAILY IV 09/09/25 10:00 Examination General Appearance: Alert, Oriented X3, Cooperative, No acute distress HEENT: Bilateral pupils are dilated, and nonreactive to the light Respiratory: Clear to auscultation, Normal air movement Cardiovascular: Regular rate, Normal S1, Normal S2, No murmurs, no chest wall tenderness Abdominal: Normal bowel sounds, Soft, No tenderness, No hepatospenomegaly, No masses Extremities: No clubbing, No cyanosis, No edema, Normal pulses, No tenderness/swelling Skin: No rashes, No breakdown, No significant lesion Neuro: Absent gag reflex Psych/Mental Status: Mental status NL, Mood NL laboratory and microbiology Laboratory Tests 09/08/25 03:40 Test 09/08/25 03:40 Range/Units Serum Glucose 104 74-106 mg/dL Microbiology Date/Time Source Procedure Growth Status 09/04/25 23:21 Urine - Sams Port Urine Culture - Final Complete 09/04/25 10:00 Nose MRSA Screen - Final Complete 09/04/25 04:22 Sputum Expectorated Sputum Gram Stain - Final Complete 09/04/25 04:22 Respiratory Culture - Final Staphylococcus aureus Complete 09/04/25 01:40 Blood Blood Culture - Preliminary NO GROWTH AFTER 72 HOURS OF INCUBATION. Resulted Labs and/or images reviewed: Labs reviewed by me, Image(s) reviewed by me Problem List/Assessment/Plan Problem List/Assessment/Plan KIMI, from ATN (baseline not available), due to cardiac arrest Hyperkalemia Metabolic acidosis Status post cardiac arrest, Anoxic encephalopathy Cardiogenic/septic shock NSTEMI Anxiety and depression Plan/recommendation: IV Lasix drip IR consult for tunneled catheter insertion Vasopressor per primary team We will evaluate kidney function on daily basis, Avoid nephrotoxic medication Strict I&Os We will follow up with the patient Ct head--anoxic encephalopathy Poor prognosis Case discussed with Dr. Ahumada Plan discussed with: Spouse, Daughter My Orders My Orders Orders - CHIDI BOWERS RESIDENT Procedure Category Date Status Time * Radiologist Consult CONS 09/08/25 Transmitted 10:44 Sodium Chl 0.9% PHA 09/08/25 In Process (So... W/Furosemide 11:00 Dietary Evaluation Review Comments: 1. nepro 35/hr providing 68g pro, 1487kcal, 611ml free water, meeting 107% energy needs, 80% protein needs 2. Increase amount of Protein support for wound healing when/if pt's kidney function impvoes. F/U and reassess when pt is off vent and PRN. Expected Outcomes/Goals: Adequate nutrition support for being on mechanical ventilation CC Plasma Assessment Blood Product Administration S: 06:05 CHIDI BOWERS RESIDENT Sep 08, 2025 13:09
[2025-09-08 13:33] LABS: Hemoglobin 8.1 g/dL (12.2-16.2)
[2025-09-08 13:35] LABS: Hematocrit 26.2 % (36.0-46.0)
[2025-09-08 13:49] LABS: INR 1.08 (0.9-1.15); Prothrombin Time 11.4 sec (9.3-11.8)
[2025-09-08] MEDS ORDERED: ARTIFICIAL TEAR OPTH(EYE) OINT 3.5GM EACHEYE SCH (18:00)
[2025-09-08] MEDS: ARTIFICIAL TEARS 15ml EACHEYE PRN (18:34)
--- NOTE | 2025-09-08 23:45 | DVHPN2 ---
Progress Note - Dictate Date Seen: Sep 08, 2025 Has the PT tested + for MRSA If YES, has PT been informed?: No Medical Necessity Reason Pt with a Central, PICC or Fol: Yes The following are medically ne: Central Line, Sams Catheter Subjective Patient was seen and evaluated in follow up in the ICU. Patient is intubated and sedated on ventilator. 30% FiO2. Patient is maintained on vasopressors. Patient is nonresponsive to painful stimuli, pupils are nonresponsive, and unequal. EEG yesterday was inconclusive.WBC 12.9, HGB 8.1, HCT 26.2, BUN 74, TERRAZZO FINISHER 6.74, CA 7.7, AST 259, ALT 242. Chest x-ray is unchanged. vital signs Vital Sign Date Time Temp Pulse Resp B/P (MAP) Pulse Ox O2 Delivery O2 Flow Rate FiO2 09/08/25 18:45 12 12 115/52 (73) 100 30 09/08/25 18:00 Mechanical Ventilator+ 09/08/25 16:00 99.0 99.0 09/06/25 19:01 50.0 Total Intake and Output 09/07/25 09/07/25 09/08/25 15:00 23:00 07:00 Intake Total 345.00 ml 270.75 ml 510.0 ml Output Total 100 ml 100 ml Balance 345.00 ml 170.75 ml 410.0 ml medications Current Medications Medications Dose Ordered Sig/Ese Route Start Time Stop Time Status Last Admin Dose Admin Norepinephrine Bitartrate 250 ml @ 3.75 mls/hr Q24H IV 09/04/25 02:00 09/08/25 15:50 7.5 MLS/HR Diagnostic Test (Pha) 1 strip ACHS 09/04/25 07:00 09/08/25 17:24 1 STRIP Insulin Human Regular ACHS SC 09/04/25 07:00 09/08/25 18:07 3 UNITS Dextrose 50 ml UD PRN IV 09/04/25 05:15 Pantoprazole Sodium 40 mg DAILY IV 09/06/25 10:00 09/08/25 08:59 40 MG Enteral Nutritional Formula 1,000 ml 35ML/HR GT 09/06/25 11:00 Furosemide 100 mg/ Sodium Chloride 110 ml @ 11 mls/hr Q10H IV 09/08/25 11:00 09/08/25 12:06 11 MLS/HR Ampicillin Sodium/ Sulbactam Sodium 3 gm/Sodium Chloride 100 ml @ 100 mls/hr DAILY IV 09/09/25 10:00 Artificial Tears 1 drop Q4HP PRN EACHEYE 09/08/25 18:00 09/08/25 18:34 1 DROP objective GENERAL: Ill appearing, intubated on ventilator. EYES: PERRL, EOMI. Anicteric. HENT: Moist mucous membranes. LUNGS: Decreased breath sounds. CARDIOVASCULAR: Regular rate and rhythm. ABDOMEN: Soft, nontender and nondistended. EXTREMITIES: No edema. SKIN: Warm, dry. laboratory and microbiology Laboratory Tests 09/08/25 13:12 09/08/25 03:40 Test 09/08/25 03:40 Range/Units Serum Glucose 104 74-106 mg/dL Problem List Cardiopulmonary arrest with ROSC. Ventricular fibrillation arrest with defibrillation at 100J. Non ST-elevation myocardial infarction. Acute anemia status post blood transfusion (-FOBT). Acute hypoxic respiratory failure. Likely KIMI on CKD. Left nephrectomy. Shocked Liver. Dyslipidemia, newly diagnosed. Cerebral and cerebellar edema, anoxic brain injury. ? Suspected PE with RV failure and PAH. Assessment/Plan Continued all current supportive medical care. IV antibiotics as ordered. Diuretics with Lasix. GI prophylactics. Vasopressors for hemodynamic support. Additional plan as per the hospital course. Critical care time of 45 minutes provided to include time spent evaluation of patient at bedside, when appropriate patient/family education for diagnosis, treatment plan, review of pertinent medical information and discussion of care with specialty providers and PCP. Mechanical ventilator parameters, treatment and adjustments have personally been reviewed by me and treatment plan by rn on site has also been reviewed. Dietary Evaluation Review Comments: 1. nepro 35/hr providing 68g pro, 1487kcal, 611ml free water, meeting 107% energy needs, 80% protein needs 2. Increase amount of Protein support for wound healing when/if pt's kidney function impvoes. F/U and reassess when pt is off vent and PRN. Expected Outcomes/Goals: Adequate nutrition support for being on mechanical ventilation Plan discussed with: Other CC Plasma Assessment Blood Product Administration S: 06:05 RISHI SOARES MD Sep 08, 2025 19:27
[2025-09-09] VITALS (112 sets, daily range): BP systolic 91–168; BP diastolic 26–82; PULSE 53–71; RESP 9–16; TEMP 97–97.7; O2SAT 91–100
[2025-09-09 04:21] LABS: Hematocrit 25.2 % (36.0-46.0); Hemoglobin 8.1 g/dL (12.2-16.2); Mean Corpuscular Hemoglobin 22.3 pg (28.0-32.0); Mean Corpuscular Volume 69.3 fL (80.0-100.0)
[2025-09-09 04:22] LABS: Anion Gap 12 (5-15); BUN/Creatinine Ratio 9.8 (10.0-20.0); Carbon Dioxide 27 mmol/L (20-31); Chloride 100 mmol/L (98-107); Magnesium 2.1 mg/dL (1.6-2.6); Potassium 4.9 mmol/L (3.5-5.1); Sodium 139 mmol/L (136-145)
[2025-09-09 04:33] LABS: Alanine Aminotransferase 425 U/L (7-40); Albumin 2.8 g/dL (3.2-4.8); Alkaline Phosphatase 255 U/L (46-116); Bilirubin, Total 0.2 mg/dL (0.2-1.0); Blood Urea Nitrogen 74 mg/dL (9-23); Calcium 8.7 mg/dL (8.7-10.4); Glucose 130 mg/dL (74-106); Total Protein 5.5 g/dL (5.7-8.2)
--- NOTE | 2025-09-09 05:21 | DVH ---
CHEST RADIOGRAPH Indication: Acute hypoxic respiratory failure. Technique: Single frontal view of the chest was obtained Comparison: XY CHEST XRAY 1 VIEW on DOS: 09/08/25. FINDINGS: Lines and Tubes: The endotracheal tube terminates 2.3 cm above the osmel. The enteric tube courses below the left hemidiaphragm and the tip extends outside the field of view. Lungs: Similar bilateral pulmonary opacities. Pleura: Small bilateral pleural effusions similar to prior study. No pneumothorax. Cardiomediastinal contours: Unremarkable. Bones: No acute osseous abnormality. Surgical hardware noted in the left humerus IMPRESSION: 1. No significant change in bilateral pulmonary opacities and small bilateral pleural effusions.
[2025-09-09 06:16] LABS: Anisocytosis Slight; Total Cells Counted 100.0 (100)
[2025-09-09 06:48] LABS: Base Excess 0.5 mmol/L (-2.0-3.0)
--- NOTE | 2025-09-09 10:11 | DVHPN2 ---
Progress Note - Dictate Date Seen: Sep 09, 2025 Has the PT tested + for MRSA If YES, has PT been informed?: No Medical Necessity Reason Pt with a Central, PICC or Fol: Yes The following are medically ne: Central Line, Sams Catheter Subjective Ms. Murillo is a 40 years old female with a history of kidney stone, depression, anxiety, she was brought to the [facility] on 09/04/2025 with a chief complaint of cardio pulmonary arrest I have seen and examined the patient, I have discussed with her nurse, I have discussed with her and daughter, she is nonresponsive to stronger painful stimuli, pupils are symmetric, 6mm, fixed Urinalysis, 09/04/2025: WBC: 37, urine leukocyte esterase: Negative UDS, 09/04/2025: Negative Plasma alcohol, 09/04/2025: <3 ABG, 09/10/2025: Metabolic acidosis WBC/HB/PLT/MCV, 09/04/2025: 8.8/6.4/260/79.8 PT/INR/ABG, 09/04/2025: 70.4/1.73/ Na, 09/04/2025: 151, 148, 140 K, 09/04/2025: 6.3, 4.6, 3.2 BUN/CR, 09/04/2025: 30/2.69 TBI/AST/ALT/AP, 09/04/2025: 0.11/2481/4030/74, 0.01/5737/2100/93 Glucose, 09/04/2025: 146, 294, 503 HGB A1c, 09/04/2025: 5 Lactic acid, 09/04/2025: 21.1, or 15.2 Troponin one high sensitivity, 09/04/2025: 2769, 5664, 7574 TG/HDL/LDL/HDL, 09/04/2025: 186/86/41/25 Extremity venous study, 09/04/2025: NO SONOGRAPHIC EVIDENCE FOR DEEP VENOUS THROMBOSIS IN THE BILATERAL LOWER EXTREMITY VEINS CT head, 09/04/25: No acute intracranial abnormality (I saw evidence suggestive of early diffuse brain edema) CT head 09/05/25: Findings are consistent with severe diffuse cerebral and cerebellar edema possibly representing anoxic brain injury. vital signs Vital Sign Date Time Temp Pulse Resp B/P (MAP) Pulse Ox O2 Delivery O2 Flow Rate FiO2 09/09/25 09:44 61 12 110/37 (61) 98 30 09/09/25 09:21 Mechanical Ventilator+ 09/09/25 04:00 97.7 97.7 Total Intake and Output 09/08/25 09/08/25 09/09/25 15:00 23:00 07:00 Intake Total 93.0 ml 541.0 ml 410.5 ml Output Total 100 ml 180 ml Balance 93.0 ml 441.0 ml 230.5 ml medications Current Medications Medications Dose Ordered Sig/Ese Route Start Time Stop Time Status Last Admin Dose Admin Norepinephrine Bitartrate 250 ml @ 3.75 mls/hr Q24H IV 09/04/25 02:00 09/08/25 15:50 7.5 MLS/HR Diagnostic Test (Pha) 1 strip ACHS 09/04/25 07:00 09/09/25 06:47 1 STRIP Insulin Human Regular ACHS SC 09/04/25 07:00 09/09/25 06:46 2 UNITS Dextrose 50 ml UD PRN IV 09/04/25 05:15 Pantoprazole Sodium 40 mg DAILY IV 09/06/25 10:00 09/08/25 08:59 40 MG Enteral Nutritional Formula 1,000 ml 35ML/HR GT 09/06/25 11:00 Furosemide 100 mg/ Sodium Chloride 110 ml @ 11 mls/hr Q10H IV 09/08/25 11:00 09/09/25 06:48 11 MLS/HR Ampicillin Sodium/ Sulbactam Sodium 3 gm/Sodium Chloride 100 ml @ 100 mls/hr DAILY IV 09/09/25 10:00 Artificial Tears 1 drop Q4HP PRN EACHEYE 09/08/25 18:00 09/08/25 18:34 1 DROP objective The patient is well-nourished and well-developed with no distress. The patient is intubated MENTAL STATUS: Nonresponsive stroke painful stimuli CRANIAL NERVES: Pupils are equal, round, dilated and fixed, Rt: 4-5mm, Lt: 7mm. There are no corneal reflexes and doll's eyes phenomenon. No signs of facial weakness. There are no gagging or coughing reflexes SENSATION: No responses to strong pain stimuli. MOTOR: Normal tone in the upper and lower extremity. Normal muscle bulk. No fasciculations. No spontaneous movement. REFLEXES: Deep tendon reflexes are symmetrical. No pathological reflexes. CEREBELLAR/COORDINATION: Deferred GAIT/STATION: deferred. laboratory and microbiology Laboratory Tests 09/09/25 03:24 Test 09/09/25 03:24 Range/Units Serum Glucose 130 H 74-106 mg/dL Problem List Cardiopulmonary arrest Coma/Metabolic/hypoxic encephalopathy Metabolic acidosis Acute respiratory failure Elevated troponin/heart attack Severe anemia Shocked liver Hypernatremia Assessment/Plan Monitoring Supportive treatment ICU care Follow up labs Brain perfusion Stabilize vitals/pressor drip Respiratory support/vent management Oxygen Antibiotics DVT prophylaxis GI prophylaxis More recommendation per clinical course This medical document was created using an electronic medical record system with [employer] (formerly [employer]) dictation system. Although this document has been carefully reviewed, there may still be some phonetic and typographical errors. These areas are purely typographical due to imperfections of the software programs, and do not reflect any compromise in the patient's medical care. Prognosis guarded Dietary Evaluation Review Comments: 1. nepro 35/hr providing 68g pro, 1487kcal, 611ml free water, meeting 107% energy needs, 80% protein needs 2. Increase amount of Protein support for wound healing when/if pt's kidney function impvoes. F/U and reassess when pt is off vent and PRN. Expected Outcomes/Goals: Adequate nutrition support for being on mechanical ventilation Plan discussed with: Spouse, Daughter, Other CC Plasma Assessment Blood Product Administration S: 06:05 ALEXIS DEL ANGEL MD Sep 09, 2025 10:11
[2025-09-09] MEDS: AMPICILLIN & SULBACTAM SODIUM 3 GM in SODIUM CHL 0.9% 100 ML IV SCH (10:32)
--- NOTE | 2025-09-09 14:36 | DVHPN2 ---
Progress Note Date Seen: Sep 09, 2025 Resident Creating Document: CHIDI BOWERS RESIDENT Has the PT tested + for MRSA If YES, has PT been informed?: No Medical Necessity Reason Pt with a Central, PICC or Fol: Yes The following are medically ne: Central Line, Sams Catheter Subjective Review of Systems Patient seen and examined at the bedside. Unable to obtain ROS due to patient's clinical status currently on mechanical ventilation. Objective vital signs Vital Sign Date Time Temp Pulse Resp B/P (MAP) Pulse Ox O2 Delivery O2 Flow Rate FiO2 09/09/25 14:25 55 09/09/25 14:24 30 09/09/25 14:24 12 98 Mechanical Ventilator+ 09/09/25 14:21 110/26 (54) 09/09/25 12:15 97.0 97.0 Total Intake and Output 09/08/25 09/08/25 09/09/25 14:59 22:59 06:59 Intake Total 82.0 ml 541.0 ml 429.0 ml Output Total 100 ml 180 ml Balance 82.0 ml 441.0 ml 249.0 ml medications Current Medications Medications Dose Ordered Sig/Ese Route Start Time Stop Time Status Last Admin Dose Admin Norepinephrine Bitartrate 250 ml @ 3.75 mls/hr Q24H IV 09/04/25 02:00 09/08/25 15:50 7.5 MLS/HR Diagnostic Test (Pha) 1 strip ACHS 09/04/25 07:00 09/09/25 11:40 1 STRIP Insulin Human Regular ACHS SC 09/04/25 07:00 09/09/25 06:46 2 UNITS Dextrose 50 ml UD PRN IV 09/04/25 05:15 Pantoprazole Sodium 40 mg DAILY IV 09/06/25 10:00 09/09/25 10:16 40 MG Enteral Nutritional Formula 1,000 ml 35ML/HR GT 09/06/25 11:00 Furosemide 100 mg/ Sodium Chloride 110 ml @ 11 mls/hr Q10H IV 09/08/25 11:00 09/09/25 06:48 11 MLS/HR Ampicillin Sodium/ Sulbactam Sodium 3 gm/Sodium Chloride 100 ml @ 100 mls/hr DAILY IV 09/09/25 10:00 09/09/25 10:32 100 MLS/HR Artificial Tears 1 drop Q4HP PRN EACHEYE 09/08/25 18:00 09/08/25 18:34 1 DROP Examination General Appearance: Alert, Oriented X3, Cooperative, No acute distress HEENT: Bilateral pupils are dilated, and nonreactive to the light Respiratory: Clear to auscultation, Normal air movement Cardiovascular: Regular rate, Normal S1, Normal S2, No murmurs, no chest wall tenderness Abdominal: Normal bowel sounds, Soft, No tenderness, No hepatospenomegaly, No masses Extremities: No clubbing, No cyanosis, No edema, Normal pulses, No tenderness/swelling Skin: No rashes, No breakdown, No significant lesion Neuro: Absent gag reflex Psych/Mental Status: Mental status NL, Mood NL laboratory and microbiology Laboratory Tests 09/09/25 03:24 Test 09/09/25 03:24 Range/Units Serum Glucose 130 H 74-106 mg/dL Microbiology Date/Time Source Procedure Growth Status 09/04/25 23:21 Urine - Sams Port Urine Culture - Final Complete 09/04/25 10:00 Nose MRSA Screen - Final Complete 09/04/25 04:22 Sputum Expectorated Sputum Gram Stain - Final Complete 09/04/25 04:22 Respiratory Culture - Final Staphylococcus aureus Complete 09/04/25 01:40 Blood Blood Culture - Final NO GROWTH AFTER 5 DAYS OF INCUBATION. Complete Labs and/or images reviewed: Labs reviewed by me, Image(s) reviewed by me Problem List/Assessment/Plan Problem List/Assessment/Plan KIMI, from ATN (baseline not available), due to cardiac arrest Hyperkalemia Metabolic acidosis Status post cardiac arrest, Anoxic encephalopathy Cardiogenic/septic shock NSTEMI Anxiety and depression Plan/recommendation: IV Lasix drip IR consult for tunneled catheter insertion, likely today patient will have hemodialysis after the placement Vasopressor per primary team We will evaluate kidney function on daily basis, Avoid nephrotoxic medication Strict I&Os We will follow up with the patient Ct head--anoxic encephalopathy Poor prognosis Case discussed with Dr. Ahumada Plan discussed with: Spouse, Daughter Dietary Evaluation Review Comments: 1. nepro 35/hr providing 68g pro, 1487kcal, 611ml free water, meeting 107% energy needs, 80% protein needs 2. Increase amount of Protein support for wound healing when/if pt's kidney function impvoes. F/U and reassess when pt is off vent and PRN. Expected Outcomes/Goals: Adequate nutrition support for being on mechanical ventilation CC Plasma Assessment Blood Product Administration S: 06:05 CIHDI BOWERS RESIDENT Sep 09, 2025 14:36
[2025-09-09] MEDS: HEPARIN SODIUM (PORCINE) 5000 UNITS/ML 1ML VIAL ONE (15:29)
[2025-09-09] MEDS: LIDOCAINE 2%HCL (LOCAL ANESTH.) INJ 20ML MDV ONE (15:30)
--- NOTE | 2025-09-09 16:06 | DVH ---
PROCEDURE: ULTRASOUND guidance for vascular access permacatheter HISTORY: TD CATH INSERTION DOCUMENTATION: Informed consent was obtained and a procedural time out was performed. FINDINGS: The risks and benefits of the procedure including bleeding, infection and pneumothorax were explained to the patient and written informed consent obtained. Following standard prep and under ultrasound guidance the right internal jugular vein was punctured using single wall technique and a guidewire placed within it. The Perma catheter was tunneled through the subcutaneous tissues. Peel-away sheath was advanced over a wire into the right atrium. Perma catheter was tunneled. Follow-up image obtained. IMPRESSION: 1. Right internal jugular Perma catheter placed as above
--- NOTE | 2025-09-09 16:18 | DVH ---
DATE: 09/09/2025 PROCEDURE: Tunneled permacatheter PLACEMENT USING FLUOROSCOPY AND ULTRASOUND HISTORY: 40 Female with renal failure requiring central venous access for dialysis. DOCUMENTATION: Informed consent was obtained and a procedural time out was performed. SEDATION: Moderate sedation was utilized during the procedure. The patient received benzodiazepines and opioids, the dosing of which was documented in the patient s permanent medical record. Pre-sedation history and evaluation revealed no contraindications to sedation. The patient s level of consciousness and physiologic status was monitored continuously by the physician and nursing staff throughout the procedure. Total intra-service moderate sedation time was minutes. Moderate sedation was administered by interventional radiology nursing staff under the direct supervision of Dr. Alon Garces analgesia and anxiolysis was obtained using intermittent, titrated dosages of medications with constant monitoring of patient`s vital signs and telemetry. Total face to face sedation time: 30 minutes. FLUORO: 0.1 minutes, 2.0 mGy, 2. Gy-m2 Total Images: Single TECHNIQUE: The skin over the right internal jugular internal jugular vein and chest was sterilely prepped, draped and anesthetized with 1% lidocaine with epinephrine. The vein was accessed with a 21 gauge needle under ultrasound guidance with an image archived in the PACS. Perma catheter was then tunneled through the subcutaneous tissues. Peel-away sheath was advanced over the wire and the Perma catheter advanced into the right atrium. dressings were applied. Procedural physician complied with all CLIP criteria, including preprocedural hand hygiene and use of maximum sterile barriers including hat, gown, sterile gloves, mask, and head to toe drape. The neck and chest were prepped with chlorhexidine solution and draped in the usual sterile fashion. The prep solution was allowed to dry prior to puncture. FINDINGS: Ultrasound demonstrates a patent right internal jugular vein. The tip of the perma catheter catheter terminates near the cavoatrial junction. No complications are identified. IMPRESSION: 1. SUCCESSFUL placement a permacatheter
--- NOTE | 2025-09-09 16:34 | DVHPN2 ---
Progress Note - Dictate Date Seen: Sep 09, 2025 Has the PT tested + for MRSA If YES, has PT been informed?: No Medical Necessity Reason Pt with a Central, PICC or Fol: Yes The following are medically ne: Central Line, Sams Catheter Subjective Patient was seen and evaluated in follow up in the ICU. Patient is intubated and sedated on ventilator. 30% FiO2. Family is present at bedside. Pending brain imaging flow study. HGB 8.1, HCT 25.2, BUN 74, EMAIL DEVELOPER 7.58, AST 220, ALT 425. Chest x-ray is unchanged. vital signs Vital Sign Date Time Temp Pulse Resp B/P (MAP) Pulse Ox O2 Delivery O2 Flow Rate FiO2 09/09/25 11:50 56 12 105/57 (73) 99 30 09/09/25 10:15 Mechanical Ventilator+ 09/09/25 08:45 97.7 97.7 Total Intake and Output 09/08/25 09/08/25 09/09/25 15:00 23:00 07:00 Intake Total 93.0 ml 541.0 ml 429.0 ml Output Total 100 ml 180 ml Balance 93.0 ml 441.0 ml 249.0 ml medications Current Medications Medications Dose Ordered Sig/Ese Route Start Time Stop Time Status Last Admin Dose Admin Norepinephrine Bitartrate 250 ml @ 3.75 mls/hr Q24H IV 09/04/25 02:00 09/08/25 15:50 7.5 MLS/HR Diagnostic Test (Pha) 1 strip ACHS 09/04/25 07:00 09/09/25 11:40 1 STRIP Insulin Human Regular ACHS SC 09/04/25 07:00 09/09/25 06:46 2 UNITS Dextrose 50 ml UD PRN IV 09/04/25 05:15 Pantoprazole Sodium 40 mg DAILY IV 09/06/25 10:00 09/09/25 10:16 40 MG Enteral Nutritional Formula 1,000 ml 35ML/HR GT 09/06/25 11:00 Furosemide 100 mg/ Sodium Chloride 110 ml @ 11 mls/hr Q10H IV 09/08/25 11:00 09/09/25 06:48 11 MLS/HR Ampicillin Sodium/ Sulbactam Sodium 3 gm/Sodium Chloride 100 ml @ 100 mls/hr DAILY IV 09/09/25 10:00 09/09/25 10:32 100 MLS/HR Artificial Tears 1 drop Q4HP PRN EACHEYE 09/08/25 18:00 09/08/25 18:34 1 DROP objective GENERAL: Ill appearing, intubated on ventilator. EYES: PERRL, EOMI. Anicteric. HENT: Moist mucous membranes. LUNGS: Decreased breath sounds. CARDIOVASCULAR: Regular rate and rhythm. ABDOMEN: Soft, nontender and nondistended. EXTREMITIES: No edema. SKIN: Warm, dry. laboratory and microbiology Laboratory Tests 09/09/25 03:24 Test 09/09/25 03:24 Range/Units Serum Glucose 130 H 74-106 mg/dL Problem List Cardiopulmonary arrest with ROSC. Ventricular fibrillation arrest with defibrillation at 100J. Non ST-elevation myocardial infarction. Acute anemia status post blood transfusion (-FOBT). Acute hypoxic respiratory failure. Likely KIMI on CKD. Left nephrectomy. Shocked Liver. Dyslipidemia, newly diagnosed. Cerebral and cerebellar edema, anoxic brain injury. ? Suspected PE with RV failure and PAH. Assessment/Plan Continued all current supportive medical care. GI prophylactics. Diuretics with Lasix. IV antibiotics as ordered. Additional plan as per the hospital course. Critical care time of 45 minutes provided to include time spent evaluation of patient at bedside, when appropriate patient/family education for diagnosis, treatment plan, review of pertinent medical information and discussion of care with specialty providers and PCP. Mechanical ventilator parameters, treatment and adjustments have personally been reviewed by me and treatment plan by mold cleaner has also been reviewed. Dietary Evaluation Review Comments: 1. nepro 35/hr providing 68g pro, 1487kcal, 611ml free water, meeting 107% energy needs, 80% protein needs 2. Increase amount of Protein support for wound healing when/if pt's kidney function impvoes. F/U and reassess when pt is off vent and PRN. Expected Outcomes/Goals: Adequate nutrition support for being on mechanical ventilation Plan discussed with: Other CC Plasma Assessment Blood Product Administration S: 06:05 RISHI SOARES MD Sep 09, 2025 12:37
--- NOTE | 2025-09-09 17:40 | DVHPNRES ---
Progress Note Date Seen: Sep 09, 2025 Resident Creating Document: FRANCIS PRESSLEY RESIDENT Has the PT tested + for MRSA If YES, has PT been informed?: No Medical Necessity Reason Pt with a Central, PICC or Fol: Yes The following are medically ne: Central Line, Sams Catheter Subjective Review of Systems The patient is a 40-year-old female with past medical history of anxiety, UTIs, and kidney stones who presented to [facility] ED for evaluation of cardiac arrest. As reported by EMS/family, patient had cardiac arrest, was asystole 1238 a.m., CPR initiated by family. Patient was initially anxious but was not having any complaints like chest pain or shortness of breath. EMS were on the scene within 5 minutes, CPR continued, patient was given IV fluid, epinephrine x2, became VFib so patient was shocked at 100 joules, Narcan given, became asystole again upon arrival at ER at 0108 hours, blood sugar upon arrival was 43, ROSC obtained at 0112 a.m. Family also reports that patient was depressed for the past 5 years, she has been staying in bed with decreased oral intake, had a fall injury in April resulting in arm and hip fracture. They denied any other significant past medical history. Patient was seen and evaluated in the ED, laboratory data shows WBC 8.8, hemoglobin 6.4, hematocrit 25.0, platelets 260, sodium 151, potassium 6.3, BUN 29, creatinine 2.52, GFR 24, glucose 146, anion gap 28.001, calcium 7.9, lactic acid 21.1 trending down to 15.2, magnesium 4.1, AST 2482, ALT 1430, troponin 2769, BNP 8.48, lipase 31, protein 4.8, albumin 2.7, blood pressure 151/22 trending up to 107/30, heart rate 106, temperature 94.2 F, O2 saturation 97% on ventilator. Head CT showed no acute intracranial abnormality. Patient was started on IV antibiotic regimen vancomycin, please see medication orders section in the computer. On my assessment, patient remains fully intubated, no diaphoresis, no diarrhea, vomiting, no fever. Patient was admitted for further evaluation and medical management. past surgical history; family denies family history: noncontributory past social history: patient lives with the family, denies any smoking, alcohol, drug use 09/06/25: patient seen in ICU. Patient is intubated, on Levophed o, off sedation. Head CT showed diffuse cerebral and cerebellar edema due to anoxic brain injury. neurology following, neurology stated poor prognosis. Kidney functions worsening. Patient's family states before admission patient has seizure-like activity, loss of consciousness which was on and off during the whole day. 09/07/25 40-year-old female in the ICU following cardiopulmonary arrest on 09/04/25, now with severe anoxic brain injury. * Intubated, mechanically ventilated * Off all sedation * No spontaneous movements * No response to pain * No brainstem reflexes: absent corneal, cough, gag, oculocephalic reflexes * Pupils 8 mm, fixed, nonreactive * Family updated todaypoor prognosis discussed, but family chooses FULL CODE and wants everything done Overnight: * Urine output 250 mL total/ 0.15ML/KG/HR * Sams in place, urine lrym-el-woyos annia * Tube feeds restarted, residuals 15 mL, tolerated * Small bowel movement today * Yamileth-care and sacral wound care performed EEG completed at bedside today for assessment of anoxic injury. Hemodynamics: * On norepinephrine drip for shock Respiratory: * Lungs clear except mild right basal infiltrates Consults: Neurology and Nephrology actively following. 09/08/25 The patient remains critically ill, intubated, mechanically ventilated, and off all sedation since 09/05. Overnight and through today, there continues to be no neurologic improvement. * Mental status unchanged and remains unresponsive/comatose * EEG yesterday inconclusive. Neurology now ordering brain perfusion scan today for brain evaluation * On norepinephrine drip, titrated 8 - 4 mcg/min * CXR today: no major change, persistent bilateral mixed pulmonary opacities and probable small pleural effusions * Oliguria continues * Urine output overnight: 100 mL * Total UO last 24h: 200 mL * Nephrology discontinued Lasix 80 mg BID * Lasix drip started * IR consulted for tunneled dialysis catheter placed today * Plan for hemodialysis/[employer] likely tomorrow Patient remains in critical multiorgan dysfunction with severe irreversible anoxic brain injury, worsening renal failure requiring 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 No neurologic recovery. Full code per family request. 09/09/25 The patient remains critically ill, intubated, mechanically ventilated, and off all sedation since 09/05. Overnight and through today, there continues to be no neurologic improvement. * Mental status unchanged and remains unresponsive/comatose * EEG yesterday inconclusive . Neurology now ordering brain perfusion scan today for brain evaluation * Oliguria continues * IR consulted tunneled dialysis catheter today * Plan for hemodialysis/[employer]ST[employer] likely tomorrow, patient developed b/l upper extremity rash near the right elbow and left antecubital fossa. Patient remains in critical multiorgan dysfunction with severe irreversible anoxic brain injury, worsening renal failure requiring 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 No neurologic recovery.Full code per family request. REVIEW OF SYSTEMS (ROS) Unable to obtain due to intubation and unresponsiveness. ROS obtained from nursing documentation and clinical assessment: * General: No fever * Respiratory: Ventilator dependent * Neuro: No purposeful activity * GI: Tube feeds tolerated * : Oliguria * Skin: Sacral tear, purpuric rash on b/l upper extremities * MSK: Generalized edema Objective vital signs Vital Sign Date Time Temp Pulse Resp B/P (MAP) Pulse Ox O2 Delivery O2 Flow Rate FiO2 09/09/25 16:39 70 12 119/31 (60) 98 30 09/09/25 14:24 Mechanical Ventilator+ 09/09/25 12:15 97.0 97.0 Total Intake and Output 09/08/25 09/08/25 09/09/25 15:00 23:00 07:00 Intake Total 93.0 ml 541.0 ml 429.0 ml Output Total 100 ml 180 ml Balance 93.0 ml 441.0 ml 249.0 ml medications Current Medications Medications Dose Ordered Sig/Ese Route Start Time Stop Time Status Last Admin Dose Admin Norepinephrine Bitartrate 250 ml @ 3.75 mls/hr Q24H IV 09/04/25 02:00 09/08/25 15:50 7.5 MLS/HR Diagnostic Test (Pha) 1 strip ACHS 09/04/25 07:00 09/09/25 11:40 1 STRIP Insulin Human Regular ACHS SC 09/04/25 07:00 09/09/25 06:46 2 UNITS Dextrose 50 ml UD PRN IV 09/04/25 05:15 Pantoprazole Sodium 40 mg DAILY IV 09/06/25 10:00 09/09/25 10:16 40 MG Enteral Nutritional Formula 1,000 ml 35ML/HR GT 09/06/25 11:00 Furosemide 100 mg/ Sodium Chloride 110 ml @ 11 mls/hr Q10H IV 09/08/25 11:00 09/09/25 06:48 11 MLS/HR Ampicillin Sodium/ Sulbactam Sodium 3 gm/Sodium Chloride 100 ml @ 100 mls/hr DAILY IV 09/09/25 10:00 09/09/25 10:32 100 MLS/HR Artificial Tears 1 drop Q4HP PRN EACHEYE 09/08/25 18:00 09/08/25 18:34 1 DROP Examination General: Intubated, unresponsive, critically ill Neuro: * GCS 3T * Pupils 8 mm, fixed, nonreactive * No gag/cough/corneal reflex * No withdrawal to pain * No spontaneous respirations HEENT: Conjunctival injection, swollen eyelids, dry mucous membranes Resp: * Clear but diminished breath sounds * No wheezes or crackles * Mechanically ventilated CV: * Regular sinus rhythm * Controlled rate on telemetry * No murmurs * Peripheral pulses present Abdomen: * Soft, non-tender * Hypoactive bowel sounds : * Sams catheter draining minimal urine MSK: * Generalized edema Skin: * Stage 1 sacral skin tear * No rashes Lines: * Left femoral triple lumen central line * Tunneled dialysis catheter (IR today) * Sams catheter * OG tube * ETT laboratory and microbiology Laboratory Tests 09/09/25 03:24 Test 09/09/25 03:24 Range/Units Serum Glucose 130 H 74-106 mg/dL Microbiology Date/Time Source Procedure Growth Status 09/04/25 23:21 Urine - Sams Port Urine Culture - Final Complete 09/04/25 10:00 Nose MRSA Screen - Final Complete 09/04/25 04:22 Sputum Expectorated Sputum Gram Stain - Final Complete 09/04/25 04:22 Respiratory Culture - Final Staphylococcus aureus Complete 09/04/25 01:40 Blood Blood Culture - Final NO GROWTH AFTER 5 DAYS OF INCUBATION. Complete Problem List/Assessment/Plan Problem List/Assessment/Plan ASSESSMENT /PLAN SYSTEM HODGE NEUROLOGY * Severe anoxic brain injury; extremely poor prognosis Metabolic encephalopathy (secondary to anoxic injury) # Sedation -off sedation # History of anxiety # Seizure like activity ? -neurology on board - neurology stated poor prognosis * Continue neuro checks Q1H * Maintain normothermia * Avoid hypotension/hypoxia * EEG inconclusive . Brain perfusion scan today for brain evaluation CARDIOVASCULAR Postcardiac arrest state (VF arrest - ROSC) . Mixed cardiogenic + septic shock on norepinephrine # heart failure with reduced ejection fraction likely post cardiac arrest # Dyslipidemia # Non ST-elevation myocardial infarction likely type 2 status post cardiac arrest, type 1 not ruled out -head CT -ekg -echo : Conclusion MODERATELY DILATED RV AND IS HYPOKINETIC DYSKINESIS OF IVS RVSP IS 40 MM OF HG AND IS HIGH STUDY CONFIRM RV FAILURE GLOBAL LV HYPOKINESIS LV EF IS 40% AND IS REDUCED NORMAL VALVES NO EFFUSION * Continue norepinephrine to maintain MAP >65 * Monitor for multi-organ shock progression.* Avoid hypotension to preserve brain perfusion * Cardiology involved * Daily EKG * Trend troponins Given anoxic brain injury, the patient is not a candidate for invasive cardiac work-up as per cardiology continue conservative medical management. RESPIRATORY Acute hypoxic respiratory failure requiring mechanical ventilation * AC/VC: RR 15, TV 450, PEEP 5, FiO2 30% * VAP bundle * Daily CXR * Oral care Q4H * SBT contraindicated INFECTIOUS DISEASE MSSA / possible aspiration pneumonia * Continue Unasyn 3 g IV Q12H (MSSA-sensitive) * Monitor sputum, blood, urine cultures * COVID/Flu negative * WBC (mild improvement) HEMATOLOGY Microcytic anemia # severe anemia requiring blood transfusion -1 unit of PRBC transfused # coagulopathy likely due to sepsis Monitor Thrombocytopenia (Plt 124) * * Hgb stable at 8.1 , Discontinued Heparin, transfuse only if <7 * Platelets normal * DVT prophylaxis: Heparin held due to anemia * Use SCDs RENAL * KIMI stage 3 on solitary kidney BUN 74; Cr 7.58; GFR 6 * * STOP Lasix drip today (ineffective) * IR placed tunneled dialysis catheter today * Nephrology planning hemodialysis tomorrow * Avoid nephrotoxins * Daily BMP, Mg, Phos hyperkalemia Corrected # hypernatremia -initially corrected with a half NS # metabolic acidosis due to sepsis Monitor ABG # respiratory alkalosis Decrease respiratory rate to 12 # hypomagnesemia Monitor Urology # complicated urinary tract infection -on antibiotics # Punctate nonobstructing right renal calculi. Seen on ultrasound # Left nephrectomy. Seen on ultrasound GI / NUTRITION Shock liver (AST/ALT markedly elevated) now improving * Continue Nepro tube feeds @ 35 mL/hr * Check residuals Q4H * PPI for ulcer prophylaxis * Monitor stool output ENDOCRINE * Insulin ACHS * Maintain BG [id number] SKIN / MSK * Stage 1 sacral ulcer * Wound care following * Reposition Q2H * Vasopressor-associated purpura * Uremic platelet dysfunction * Coagulopathy of renal failure * Critical illnessrelated ecchymosis 2. Ensure no heparin products (including flushes) 3. Warm compresses to affected areas 4. Reposition Q2H to reduce pressure contribution 5. Albumin support 6. NO signs of cellulitis (no warmth) 8. Topical emollients (Aquaphor) to reduce skin breakdown 9. Check fibrinogen, LDH, haptoglobin to rule out purpura fulminans 10. Monitor platelets daily OPHTHALMOLOGY * Conjunctival injection, swollen eyelids * Start Lacri-lube eye drops Q6H LINES / TUBES * ETT (09/04) * OG tube * Left femoral central line (09/04) * Sams catheter * Daily line necessity review PROPHYLAXIS * DVT: SCDs only * GI: Pantoprazole * Ulcer: Q2H turns * VAP: oral care, CHG, HOB elevation SOCIAL WORK / FAMILY SUPPORT * Family updated extensively * Full code requested * Social work available for support CODE STATUS FULL CODE Family updated today; despite detailed prognosis counseling, they request full aggressive measures and full code total time spent >20 mins CRITICAL CARE TIME 83 minutes of critical care time spent today, excluding procedure time. . DISCUSSION WITH ATTENDING Case reviewed in detail with attending physician Dr Singleton. Management plan jointly agreed upon. including the clinical presentation, diagnostic workup, and comprehensive management plan. The patient's family was present for the discussion and demonstrated understanding of his condition and the proposed plan. Plan discussed with: Spouse, Daughter My Orders My Orders Orders - FRANCIS PRESSLEY RESIDENT Procedure Category Date Status Time Insertion Of Venous XY 09/09/25 Resulted Cath 16:06 Ventilator Setup RT 09/09/25 Logged 16:15 Ventilator Orders RT 09/09/25 Transmitted 16:46 Dietary Evaluation Review Comments: 1. nepro 35/hr providing 68g pro, 1487kcal, 611ml free water, meeting 107% energy needs, 80% protein needs 2. Increase amount of Protein support for wound healing when/if pt's kidney function impvoes. F/U and reassess when pt is off vent and PRN. Expected Outcomes/Goals: Adequate nutrition support for being on mechanical ventilation CC Plasma Assessment Blood Product Administration S: 06:05 Date of Service: Sep 09, 2025 Billing Provider: KEYA SINGLETON MD Common Visit Codes: 58860-AZRNXRPF CARE 30-74 MIN, 89997-[id number] CARE-EACH +30MIN FRANCIS PRESSLEY RESIDENT Sep 09, 2025 17:40 KEYA SINGLETON MD Sep 10, 2025 10:50
[2025-09-09] MEDS: Nepro With Carb Steady 1 Liter Bottle GT SCH (19:54)
--- NOTE | 2025-09-09 20:54 | DVHEEG2 ---
Neurology EEG Procedural Note Procedural Note EXAM DATE: 09/07/2025 REFERRING DOCTOR: Dr. Del Angel TECHNIQUE: Eighteen channels of EEG, 2 channels of EOG, and 1 channel of EKG were recorded using the International 10/20 system. CLINICAL DATA: The patient was referred for an EEG evaluation for the evidence of seizure disorder. MEDICATIONS: See the chart BACKGROUND ACTIVITY: The record showed very low amplitude mixed delta and theta activity over both hemispheres, that was not reactive to external stimuli ACTIVATION: Hyperventilation: Not done Photic Stimulation: Not done Sleep: Not seen IMPRESSION: This is a remarkably abnormal EEG, this EEG is seen in severe cerebral dysfunction due to metabolic/hypoxic encephalopathy or medication effects, unless this is caused by reversible etiology, this EEG is suggestive of a poor prognosis for meaningful recovery, please correlate clinically The EKG channel showed a regular heart rate of 72/min. [place] [address] ALEXIS DEL ANGEL MD Sep 09, 2025 20:54
[2025-09-09] MEDS: EPOETIN ALFA-EPBX 10,000 UNIT/1ML VIAL SC SCH (22:06)
[2025-09-10] VITALS (106 sets, daily range): BP systolic 88–179; BP diastolic 26–91; PULSE 63–102; RESP 9–25; TEMP 96.7–99; O2SAT 93–100
[2025-09-10 03:56] LABS: Hemoglobin 7.5 g/dL (12.2-16.2); Nucleated Red Blood Cells % 0.2 %
[2025-09-10 03:58] LABS: Hematocrit 23.1 % (36.0-46.0); Mean Corpuscular Hemoglobin 22.2 pg (28.0-32.0); Mean Corpuscular Volume 68.1 fL (80.0-100.0)
[2025-09-10 04:22] LABS: BUN/Creatinine Ratio 11.4 (10.0-20.0); Chloride 101 mmol/L (98-107); Magnesium 1.9 mg/dL (1.6-2.6); Potassium 4.4 mmol/L (3.5-5.1); Sodium 141 mmol/L (136-145)
[2025-09-10 04:37] LABS: Iron 11.0 ug/dL (50-170); Total Iron Binding Capacity 204.0 ug/dL (250-425)
[2025-09-10 04:38] LABS: Alanine Aminotransferase 339 U/L (7-40); Albumin 2.7 g/dL (3.2-4.8); Alkaline Phosphatase 212 U/L (46-116); Bilirubin, Total 0.2 mg/dL (0.2-1.0); Blood Urea Nitrogen 67 mg/dL (9-23); Calcium 8.4 mg/dL (8.7-10.4); Glucose 150 mg/dL (74-106); Total Protein 5.5 g/dL (5.7-8.2)
[2025-09-10 04:47] LABS: Anion Gap 12 (5-15); Carbon Dioxide 28 mmol/L (20-31)
--- NOTE | 2025-09-10 05:18 | DVH ---
CHEST RADIOGRAPH Indication: acute hypoxic respi failure Technique: Single frontal view of the chest was obtained COMPARISON: XY CHEST XRAY 1 VIEW on DOS: 09/09/25, XY CHEST XRAY 1 VIEW on DOS: 09/08/25, XY CHEST XRAY 1 VIEW on DOS: 09/07/25, XY CHEST PORTABLE on DOS: 09/06/25, XY CHEST PORTABLE on DOS: 09/05/25 FINDINGS: Lines and Tubes: Endotracheal tube, enteric catheter and right central venous catheter in satisfactory position. Lungs: Pulmonary vascular congestion Pleura: No effusion.No pneumothorax. Cardiomediastinal contours: Unremarkable Bones: Unremarkable IMPRESSION: Lines and tubes in satisfactory position. No significant interval change.
[2025-09-10] MEDS: MAGNESIUM SULFATE 1GM/100ML 100 ML IV ONE (06:16)
[2025-09-10] MEDS: SODIUM CHL 0.9% 1000 ML BAG XX ONE (07:15)
--- NOTE | 2025-09-10 09:49 | DVHPN2 ---
Progress Note - Dictate Date Seen: Sep 10, 2025 Has the PT tested + for MRSA If YES, has PT been informed?: No Medical Necessity Reason Pt with a Central, PICC or Fol: Yes The following are medically ne: Central Line, Sams Catheter Subjective Ms. Murillo is a 40 years old female with a history of kidney stone, depression, anxiety, she was brought to the [facility] on 09/04/2025 with a chief complaint of cardio pulmonary arrest I have seen and examined the patient, I have discussed with her nurse, Her and daughter, she is nonresponsive to stronger painful stimuli, pupils are symmetric, 6mm, fixed RN: Possible posturing when she was repositioned Today the left pupil is slightly bigger, both are nonreactive to light Hemodialysis today Urinalysis, 09/04/2025: WBC: 37, urine leukocyte esterase: Negative UDS, 09/04/2025: Negative Plasma alcohol, 09/04/2025: <3 ABG, 09/10/2025: Metabolic acidosis WBC/HB/PLT/MCV, 09/04/2025: 8.8/6.4/260/79.8 PT/INR/ABG, 09/04/2025: 70.4/1.73/ Na, 09/04/2025: 151, 148, 140 K, 09/04/2025: 6.3, 4.6, 3.2 BUN/CR, 09/04/2025: 30/2.69 TBI/AST/ALT/AP, 09/04/2025: 0.11/2481/4030/74, 0.01/5737/2100/93 Glucose, 09/04/2025: 146, 294, 503 HGB A1c, 09/04/2025: 5 Lactic acid, 09/04/2025: 21.1, or 15.2 Troponin one high sensitivity, 09/04/2025: 2769, 5664, 7574 TG/HDL/LDL/HDL, 09/04/2025: 186/86/41/25 Extremity venous study, 09/04/2025: NO SONOGRAPHIC EVIDENCE FOR DEEP VENOUS THROMBOSIS IN THE BILATERAL LOWER EXTREMITY VEINS CT head, 09/04/25: No acute intracranial abnormality (I saw evidence suggestive of early diffuse brain edema) CT head 09/05/25: Findings are consistent with severe diffuse cerebral and cerebellar edema possibly representing anoxic brain injury. vital signs Vital Sign Date Time Temp Pulse Resp B/P (MAP) Pulse Ox O2 Delivery O2 Flow Rate FiO2 09/10/25 07:59 69 15 143/46 (78) 94 30 09/10/25 06:00 Mechanical Ventilator+ 09/10/25 04:00 98.4 98.4 09/09/25 19:01 50.0 Total Intake and Output 09/09/25 09/09/25 09/10/25 15:00 23:00 07:00 Intake Total 226.0 ml 60.0 ml 411.5 ml Output Total 150 ml 120 ml Balance 226.0 ml -90.0 ml 291.5 ml medications Current Medications Medications Dose Ordered Sig/Ese Route Start Time Stop Time Status Last Admin Dose Admin Norepinephrine Bitartrate 250 ml @ 3.75 mls/hr Q24H IV 09/04/25 02:00 09/10/25 01:22 7.5 MLS/HR Diagnostic Test (Pha) 1 strip ACHS 09/04/25 07:00 09/10/25 06:25 1 STRIP Insulin Human Regular ACHS SC 09/04/25 07:00 09/10/25 06:34 3 UNITS Dextrose 50 ml UD PRN IV 09/04/25 05:15 Pantoprazole Sodium 40 mg DAILY IV 09/06/25 10:00 09/09/25 10:16 40 MG Enteral Nutritional Formula 1,000 ml 35ML/HR GT 09/06/25 11:00 09/09/25 19:54 1,000 ML Ampicillin Sodium/ Sulbactam Sodium 3 gm/Sodium Chloride 100 ml @ 100 mls/hr DAILY IV 09/09/25 10:00 09/09/25 10:32 100 MLS/HR Artificial Tears 1 drop Q4HP PRN EACHEYE 09/08/25 18:00 09/08/25 18:34 1 DROP Epoetin Nahun-epbx 10,000 unit MWF@2100 SC 09/09/25 21:00 09/09/25 22:06 10,000 UNIT Multi-Ingredient Ointment 1 applic DAILY TOP 09/10/25 10:00 Iron Sucrose 110 ml @ 110 mls/hr DAILY@1200 IV 09/10/25 12:00 09/14/25 12:59 objective The patient is well-nourished and well-developed with no distress. The patient is intubated MENTAL STATUS: Nonresponsive stroke painful stimuli CRANIAL NERVES: Pupils are equal, round, dilated and fixed, Rt: 4-5mm, Lt: 6mm. There are no corneal reflexes and doll's eyes phenomenon. No signs of facial weakness. There are no gagging or coughing reflexes SENSATION: No responses to strong pain stimuli. MOTOR: Normal tone in the upper and lower extremity. Normal muscle bulk. No fasciculations. No spontaneous movement. REFLEXES: Deep tendon reflexes are symmetrical. No pathological reflexes. CEREBELLAR/COORDINATION: Deferred GAIT/STATION: deferred. laboratory and microbiology Laboratory Tests 09/10/25 03:06 Test 09/10/25 03:06 Range/Units Serum Glucose 150 H 74-106 mg/dL Problem List Cardiopulmonary arrest Coma/Metabolic/hypoxic encephalopathy Metabolic acidosis Acute respiratory failure Elevated troponin/heart attack Severe anemia Shocked liver Hypernatremia Assessment/Plan Monitoring Supportive treatment ICU care Follow up labs Brain perfusion Stabilize vitals/pressor drip Respiratory support/vent management Oxygen Antibiotics DVT prophylaxis GI prophylaxis More recommendation per clinical course This medical document was created using an electronic medical record system with [employer] dictation system. Although this document has been carefully reviewed, there may still be some phonetic and typographical errors. These areas are purely typographical due to imperfections of the software programs, and do not reflect any compromise in the patient's medical care. Prognosis Guarded Dietary Evaluation Review Comments: 1. nepro 35/hr providing 68g pro, 1487kcal, 611ml free water, meeting 107% energy needs, 80% protein needs 2. Increase amount of Protein support for wound healing when/if pt's kidney function impvoes. F/U and reassess when pt is off vent and PRN. Expected Outcomes/Goals: Adequate nutrition support for being on mechanical ventilation Plan discussed with: Spouse, Daughter, Other Critical Care Time(min): 35 CC Plasma Assessment Blood Product Administration S: 06:05 ALEXIS DEL ANGEL MD Sep 10, 2025 09:49
--- NOTE | 2025-09-10 10:11 | MEDREC ---
[facility] Intervention Section I [facility] Intervention: Deescalate AB based on CS (PLEASE CONSIDER D/C VANCOMYCIN SINCE MRSA NARES NEGATIVE AND RESPIRATORY CULTURE POSITIVE FOR MSSA - NARES SCREENING FOR MRSA HAS A HIGH SPECIFICITY AND NEGATIVE PREDICTIVE VALUE FOR RULING OUT MRSA PNEUMONIA), Review courses of therapy (PLEASE CONSIDER SWITCHING TO NAFCILLIN IT IS NOT RENAL (PT HAS KIMI) AND COVERS MSSA) ASHER MOHAN [facility] RESIDENT Sep 10, 2025 10:11
[2025-09-10] MEDS: EUCERIN CREAM 2OZ TUBE TOP SCH (11:10)
[2025-09-10] MEDS: DOXYCYCLINE 100MG/100ML 100 ML IV SCH (11:25)
[2025-09-10 11:29] LABS: Base Excess 6.0 mmol/L (-2.0-3.0)
--- NOTE | 2025-09-10 11:35 | DVHPN2 ---
Progress Note Date Seen: Sep 10, 2025 Resident Creating Document: CHIDI BOWERS RESIDENT Has the PT tested + for MRSA If YES, has PT been informed?: No Medical Necessity Reason Pt with a Central, PICC or Fol: Yes The following are medically ne: Central Line, Sams Catheter Subjective Review of Systems Patient seen and examined at the bedside. Unable to obtain ROS due to patient's clinical status currently on mechanical ventilation. Objective vital signs Vital Sign Date Time Temp Pulse Resp B/P (MAP) Pulse Ox O2 Delivery O2 Flow Rate FiO2 09/10/25 10:11 102 15 124/81 (95) 96 30 09/10/25 06:00 Mechanical Ventilator+ 09/10/25 04:00 98.4 98.4 09/09/25 19:01 50.0 Total Intake and Output 09/09/25 09/09/25 09/10/25 15:00 23:00 07:00 Intake Total 226.0 ml 60.0 ml 411.5 ml Output Total 150 ml 120 ml Balance 226.0 ml -90.0 ml 291.5 ml medications Current Medications Medications Dose Ordered Sig/Ese Route Start Time Stop Time Status Last Admin Dose Admin Norepinephrine Bitartrate 250 ml @ 3.75 mls/hr Q24H IV 09/04/25 02:00 09/10/25 01:22 7.5 MLS/HR Diagnostic Test (Pha) 1 strip ACHS 09/04/25 07:00 09/10/25 06:25 1 STRIP Insulin Human Regular ACHS SC 09/04/25 07:00 09/10/25 06:34 3 UNITS Dextrose 50 ml UD PRN IV 09/04/25 05:15 Pantoprazole Sodium 40 mg DAILY IV 09/06/25 10:00 09/10/25 10:52 40 MG Enteral Nutritional Formula 1,000 ml 35ML/HR GT 09/06/25 11:00 09/09/25 19:54 1,000 ML Artificial Tears 1 drop Q4HP PRN EACHEYE 09/08/25 18:00 09/08/25 18:34 1 DROP Epoetin Nahun-epbx 10,000 unit MWF@2100 [place] 09/09/25 21:00 09/09/25 22:06 10,000 UNIT Multi-Ingredient Ointment 1 applic DAILY TOP 09/10/25 10:00 Iron Sucrose 110 ml @ 110 mls/hr DAILY@1200 IV 09/10/25 12:00 09/14/25 12:59 Doxycycline Hyclate 100 ml @ 50 mls/hr Q12H IV 09/10/25 11:00 Examination General Appearance: Alert, Oriented X3, Cooperative, No acute distress HEENT: Bilateral pupils are dilated, and nonreactive to the light Respiratory: Clear to auscultation, Normal air movement Cardiovascular: Regular rate, Normal S1, Normal S2, No murmurs, no chest wall tenderness Abdominal: Normal bowel sounds, Soft, No tenderness, No hepatospenomegaly, No masses Extremities: No clubbing, No cyanosis, No edema, Normal pulses, No tenderness/swelling Skin: No rashes, No breakdown, No significant lesion Neuro: Absent gag reflex Psych/Mental Status: Mental status NL, Mood NL laboratory and microbiology Laboratory Tests 09/10/25 03:06 Test 09/10/25 03:06 Range/Units Serum Glucose 150 H 74-106 mg/dL Microbiology Date/Time Source Procedure Growth Status 09/04/25 23:21 Urine - Sams Port Urine Culture - Final Complete 09/04/25 10:00 Nose MRSA Screen - Final Complete 09/04/25 04:22 Sputum Expectorated Sputum Gram Stain - Final Complete 09/04/25 04:22 Respiratory Culture - Final Staphylococcus aureus Complete 09/04/25 01:40 Blood Blood Culture - Final NO GROWTH AFTER 5 DAYS OF INCUBATION. Complete Labs and/or images reviewed: Labs reviewed by me, Image(s) reviewed by me Problem List/Assessment/Plan Problem List/Assessment/Plan KIMI, from [facility] (baseline not available), due to cardiac arrest requiring hemodialysis Hyperkalemia Metabolic acidosis Status post cardiac arrest, Anoxic encephalopathy Cardiogenic/septic shock NSTEMI Anxiety and depression Plan/recommendation: IV Lasix drip HD yesterday & today Vasopressor per primary team We will evaluate kidney function on daily basis, Avoid nephrotoxic medication Strict I&Os Ct head--anoxic encephalopathy Poor prognosis Case discussed with Dr. Ahumada Plan discussed with: Spouse, Daughter Dietary Evaluation Review Comments: 1. nepro 35/hr providing 68g pro, 1487kcal, 611ml free water, meeting 107% energy needs, 80% protein needs 2. Increase amount of Protein support for wound healing when/if pt's kidney function impvoes. F/U and reassess when pt is off vent and PRN. Expected Outcomes/Goals: Adequate nutrition support for being on mechanical ventilation CC Plasma Assessment Blood Product Administration S: 06:05 CHIDI BOWERS RESIDENT Sep 10, 2025 11:35
[2025-09-10] MEDS: diphenhydrAMINE HCL 50 MG/1 ML VL IV ONE (11:37)
[2025-09-10] MEDS: IRON SUCROSE COMPLEX 100 ML IV ONE (14:30)
[2025-09-10] MEDS: IRON SUCROSE COMPLEX 110 ML IV SCH (14:33)
--- NOTE | 2025-09-10 16:54 | DVH ---
CLINICAL INFORMATION: Status post CPR. TECHNIQUE: 25.3 mCi of technetium pertechnetate was injected. Frontal view images of the head and neck were obtained at 4 second intervals for a total of 1 minute. Anterior, posterior, left lateral, and bilateral delayed images of the head and neck were also obtained. COMPARISON: CT HEAD WITHOUT CONTRAST on DOS: 09/05/25, CT HEAD WITHOUT CONTRAST on DOS: 09/04/25 FINDINGS: Absence of cerebral blood flow is noted along with no brain parenchymal radiotracer uptake. Increased activity is seen in the central face likely representing vascular shunting consistent with the so-called "hot nose" sign. IMPRESSION: Findings likely representing brain however clinical correlation is needed.
--- NOTE | 2025-09-10 17:04 | DVHPNRES ---
Progress Note Date Seen: Sep 10, 2025 Resident Creating Document: FRANCIS PRESSLEY RESIDENT Has the PT tested + for MRSA If YES, has PT been informed?: No Medical Necessity Reason Pt with a Central, PICC or Fol: Yes The following are medically ne: Central Line, Sams Catheter Subjective Review of Systems The patient is a 40-year-old female with past medical history of anxiety, UTIs, and kidney stones who presented to [facility] ED for evaluation of cardiac arrest. As reported by EMS/family, patient had cardiac arrest, was asystole 1238 a.m., CPR initiated by family. Patient was initially anxious but was not having any complaints like chest pain or shortness of breath. EMS were on the scene within 5 minutes, CPR continued, patient was given IV fluid, epinephrine x2, became VFib so patient was shocked at 100 joules, Narcan given, became asystole again upon arrival at ER at 0108 hours, blood sugar upon arrival was 43, ROSC obtained at 0112 a.m. Family also reports that patient was depressed for the past 5 years, she has been staying in bed with decreased oral intake, had a fall injury in April resulting in arm and hip fracture. They denied any other significant past medical history. Patient was seen and evaluated in the ED, laboratory data shows WBC 8.8, hemoglobin 6.4, hematocrit 25.0, platelets 260, sodium 151, potassium 6.3, BUN 29, creatinine 2.52, GFR 24, glucose 146, anion gap 28.001, calcium 7.9, lactic acid 21.1 trending down to 15.2, magnesium 4.1, AST 2482, ALT 1430, troponin 2769, BNP 8.48, lipase 31, protein 4.8, albumin 2.7, blood pressure 151/22 trending up to 107/30, heart rate 106, temperature 94.2 F, O2 saturation 97% on ventilator. Head CT showed no acute intracranial abnormality. Patient was started on IV antibiotic regimen vancomycin, please see medication orders section in the computer. On my assessment, patient remains fully intubated, no diaphoresis, no diarrhea, vomiting, no fever. Patient was admitted for further evaluation and medical management. past surgical history; family denies family history: noncontributory past social history: patient lives with the family, denies any smoking, alcohol, drug use 09/06/25: patient seen in ICU. Patient is intubated, on Levophed o, off sedation. Head CT showed diffuse cerebral and cerebellar edema due to anoxic brain injury. neurology following, neurology stated poor prognosis. Kidney functions worsening. Patient's family states before admission patient has seizure-like activity, loss of consciousness which was on and off during the whole day. 09/07/25 40-year-old female in the ICU following cardiopulmonary arrest on 09/04/25, now with severe anoxic brain injury. * Intubated, mechanically ventilated * Off all sedation * No spontaneous movements * No response to pain * No brainstem reflexes: absent corneal, cough, gag, oculocephalic reflexes * Pupils 8 mm, fixed, nonreactive * Family updated todaypoor prognosis discussed, but family chooses FULL CODE and wants everything done Overnight: * Urine output 250 mL total/ 0.15ML/KG/HR * Sams in place, urine [id number] annia * Tube feeds restarted, residuals 15 mL, tolerated * Small bowel movement today * Yamileth-care and sacral wound care performed EEG completed at bedside today for assessment of anoxic injury. Hemodynamics: * On norepinephrine drip for shock Respiratory: * Lungs clear except mild right basal infiltrates Consults: Neurology and Nephrology actively following. 09/08/25 The patient remains critically ill, intubated, mechanically ventilated, and off all sedation since 09/05. Overnight and through today, there continues to be no neurologic improvement. * Mental status unchanged and remains unresponsive/comatose * EEG yesterday inconclusive. Neurology now ordering brain perfusion scan today for brain evaluation * On norepinephrine drip, titrated 8 - 4 mcg/min * CXR today: no major change, persistent bilateral mixed pulmonary opacities and probable small pleural effusions * Oliguria continues * Urine output overnight: 100 mL * Total UO last 24h: 200 mL * Nephrology discontinued Lasix 80 mg BID * Lasix drip started * IR consulted for tunneled dialysis catheter placed today * Plan for hemodialysis/[employer] likely tomorrow Patient remains in critical multiorgan dysfunction with severe irreversible anoxic brain injury, worsening renal failure requiring [employer] preparation, hemodynamic instability requiring vasopressors, and persistent respiratory failure on the ventilator. No neurologic recovery. Full code per family request. 09/09/25 The patient remains critically ill, intubated, mechanically ventilated, and off all sedation since 09/05. Overnight and through today, there continues to be no neurologic improvement. * Mental status unchanged and remains unresponsive/comatose * EEG yesterday inconclusive . Neurology now ordering brain perfusion scan today for brain evaluation * Oliguria continues * IR consulted tunneled dialysis catheter today * Plan for hemodialysis/[employer] likely tomorrow, patient developed b/l upper extremity rash near the right elbow and left antecubital fossa. Patient remains in critical multiorgan dysfunction with severe irreversible anoxic brain injury, worsening renal failure requiring [employer] preparation, hemodynamic instability requiring vasopressors, and persistent respiratory failure on the ventilator. No neurologic recovery.Full code per family request. 09/10/25 he patient continues to remain critically ill, unresponsive, mechanically ventilated, off all sedation, with severe anoxic brain injury and no signs of neurologic recovery. Family continues to request FULL CODE and continuation of all aggressive medical care. * Urine output: 0.16 mL/kg/hr (severely oliguric) * Yesterday: Hemodialysis with 700 mL ultrafiltration * Today: Plan for 11.5 L ultrafiltration * Tunneled right IJ permacath placed 09/09 * Lasix drip discontinued * Creatinine 5.9 (improving from 7.58) * Iron studies: * Iron 11 (low) * TIBC 204 (low) * Saturation 5.4% (severely low) * Ferritin 132 * EEG: Severe diffuse cerebral dysfunction consistent with severe hypoxic metabolic encephalopathy * Poor prognosis confirmed by neurology * Brain perfusion nuclear scan scheduled today/tomorrow for brain evaluation * Diffuse purpuric rash spreading over upper extremities and lower extremities * Ecchymosis + petechiae + non-blanching lesions * Rash progression after Unasyn ? possible beta-lactam hypersensitivity * Unasyn discontinued today * Doxycycline started * Sacral scab healing * Non-pitting edema persists REVIEW OF SYSTEMS (Limited by coma) * General: No fever * HEENT: Eyelid edema, conjunctival injection * CV: No chest pain (unable to report) * Resp: Mechanically ventilated * GI: Tube feeds tolerated * : Oliguria * Skin: Diffuse purpuric rash, sacral ulcer healing * Neuro: No response Objective vital signs Vital Sign Date Time Temp Pulse Resp B/P (MAP) Pulse Ox O2 Delivery O2 Flow Rate FiO2 09/10/25 16:04 92 15 113/64 (80) 98 30 09/10/25 06:00 Mechanical Ventilator+ 09/10/25 04:00 98.4 98.4 09/09/25 19:01 50.0 Total Intake and Output 09/09/25 09/09/25 09/10/25 15:00 23:00 07:00 Intake Total 226.0 ml 60.0 ml 411.5 ml Output Total 150 ml 120 ml Balance 226.0 ml -90.0 ml 291.5 ml medications Current Medications Medications Dose Ordered Sig/Ese Route Start Time Stop Time Status Last Admin Dose Admin Norepinephrine Bitartrate 250 ml @ 3.75 mls/hr Q24H IV 09/04/25 02:00 09/10/25 01:22 7.5 MLS/HR Diagnostic Test (Pha) 1 strip ACHS 09/04/25 07:00 09/10/25 11:32 1 STRIP Insulin Human Regular ACHS SC 09/04/25 07:00 09/10/25 06:34 3 UNITS Dextrose 50 ml UD PRN IV 09/04/25 05:15 Pantoprazole Sodium 40 mg DAILY IV 09/06/25 10:00 09/10/25 10:52 40 MG Enteral Nutritional Formula 1,000 ml 35ML/HR GT 09/06/25 11:00 09/09/25 19:54 1,000 ML Artificial Tears 1 drop Q4HP PRN EACHEYE 09/08/25 18:00 09/08/25 18:34 1 DROP Epoetin Nahun-epbx 10,000 unit MWF@2100 [place] 09/09/25 21:00 09/09/25 22:06 10,000 UNIT Multi-Ingredient Ointment 1 applic DAILY TOP 09/10/25 10:00 09/10/25 11:10 1 APPLIC Iron Sucrose 110 ml @ 110 mls/hr DAILY@1200 IV 09/10/25 12:00 09/14/25 12:59 09/10/25 14:33 110 MLS/HR Doxycycline Hyclate 100 ml @ 50 mls/hr Q12H IV 09/10/25 11:00 09/10/25 11:25 50 MLS/HR laboratory and microbiology Laboratory Tests 09/10/25 03:06 Test 09/10/25 03:06 Range/Units Serum Glucose 150 H 74-106 mg/dL Microbiology Date/Time Source Procedure Growth Status 09/04/25 23:21 Urine - Sams Port Urine Culture - Final Complete 09/04/25 10:00 Nose MRSA Screen - Final Complete 09/04/25 04:22 Sputum Expectorated Sputum Gram Stain - Final Complete 09/04/25 04:22 Respiratory Culture - Final Staphylococcus aureus Complete 09/04/25 01:40 Blood Blood Culture - Final NO GROWTH AFTER 5 DAYS OF INCUBATION. Complete Problem List/Assessment/Plan Problem List/Assessment/Plan ASSESSMENT /PLAN SYSTEM HODGE NEUROLOGY * Severe anoxic brain injury; extremely poor prognosis Metabolic encephalopathy (secondary to anoxic injury) # Sedation -off sedation # History of anxiety # Seizure like activity ? -neurology on board - neurology stated poor prognosis * Continue neuro checks Q1H * Maintain normothermia * Avoid hypotension/hypoxia * Brain perfusion scan today/tomorrow * EEG: Severe diffuse cerebral dysfunction consistent with severe hypoxic metabolic encephalopathy CARDIOVASCULAR Postcardiac arrest state (VF arrest - ROSC) . Mixed cardiogenic + septic shock on norepinephrine # heart failure with reduced ejection fraction likely post cardiac arrest # Dyslipidemia # Non ST-elevation myocardial infarction likely type 2 status post cardiac arrest, type 1 not ruled out -head CT -ekg -echo : Conclusion MODERATELY DILATED RV AND IS HYPOKINETIC DYSKINESIS OF IVS RVSP IS 40 MM OF HG AND IS HIGH STUDY CONFIRM RV FAILURE GLOBAL LV HYPOKINESIS LV EF IS 40% AND IS REDUCED NORMAL VALVES NO EFFUSION * Continue norepinephrine to maintain MAP >65 * Monitor for multi-organ shock progression.* Avoid hypotension to preserve brain perfusion * Cardiology involved * Daily EKG * Trend troponins Given anoxic brain injury, the patient is not a candidate for invasive cardiac work-up as per cardiology continue conservative medical management. RESPIRATORY Acute hypoxic respiratory failure requiring mechanical ventilation * AC/VC: RR 15, TV 450, PEEP 5, FiO2 30% * VAP bundle * Daily CXR * Oral care Q4H * SBT contraindicated INFECTIOUS DISEASE MSSA / possible aspiration pneumonia * STOPPED Unasyn today due to allergic rash * START doxycycline * Continue to monitor rash progression * Monitor sputum, blood, urine cultures * COVID/Flu negative * WBC (mild improvement) HEMATOLOGY Microcytic anemia # severe anemia requiring blood transfusion -1 unit of PRBC transfused # coagulopathy likely due to sepsis Monitor Thrombocytopenia (Plt 124) * * Hgb stable at 7.5 , Discontinued Heparin, transfuse only if <7 * Platelets normal * DVT prophylaxis: Heparin held due to anemia * Use SCDs RENAL * KIMI stage 3 on solitary kidney BUN 74; Cr 7.58; GFR 6 * * STOP Lasix drip today (ineffective) * IR placed tunneled dialysis catheter yesterday * * UF today: target 11.5 L * Avoid nephrotoxins * Daily BMP, Mg, Phos hyperkalemia Corrected # hypernatremia -initially corrected with a half NS # metabolic acidosis due to sepsis Monitor ABG # respiratory alkalosis Decrease respiratory rate to 12 # hypomagnesemia Monitor Urology # complicated urinary tract infection -on antibiotics # Punctate nonobstructing right renal calculi. Seen on ultrasound # Left nephrectomy. Seen on ultrasound GI / NUTRITION Shock liver (AST/ALT markedly elevated) now improving * Continue Nepro tube feeds @ 35 mL/hr * Check residuals Q4H * PPI for ulcer prophylaxis * Monitor stool output ENDOCRINE * Insulin ACHS * Maintain BG [id number] SKIN / MSK * Stage 1 sacral ulcer * Wound care following * Reposition Q2H * Vasopressor-associated purpura * Uremic platelet dysfunction * Coagulopathy of renal failure * likely drug rash: dc unasyn * Beta-lactam hypersensitivity Ensure no heparin products (including flushes) STOP beta-lactams (done) Start doxycycline (done) Warm compresses to affected areas Reposition Q2H to reduce pressure contribution NO signs of cellulitis (no warmth) Topical emollients (Aquaphor) to reduce skin breakdown Monitor platelets daily OPHTHALMOLOGY * Conjunctival injection, swollen eyelids * Start Lacri-lube eye drops Q6H LINES / TUBES * ETT (09/04) * OG tube * Left femoral central line (09/04) * Sams catheter Right IJ tunneled dialysis catheter (09/09) * Daily line necessity review PROPHYLAXIS * DVT: SCDs only * GI: Pantoprazole * Ulcer: Q2H turns * VAP: oral care, CHG, HOB elevation SOCIAL WORK / FAMILY SUPPORT * Family updated extensively * Full code requested * Social work available for support CODE STATUS FULL CODE Family updated today; despite detailed prognosis counseling, they request full aggressive measures and full code total time spent >20 mins CRITICAL CARE TIME 83 minutes of critical care time spent today, excluding procedure time. . DISCUSSION WITH ATTENDING Case reviewed in detail with attending physician Dr Singleton. Management plan jointly agreed upon. including the clinical presentation, diagnostic workup, and comprehensive management plan. The patient's family was present for the discussion and demonstrated understanding of his condition and the proposed plan. Plan discussed with: Spouse My Orders My Orders Orders - FRANCIS PRESSLEY RESIDENT Procedure Category Date Status Time Ventilator Orders RT 09/09/25 Transmitted 16:46 Abg W/ Co-Ox RT 09/10/25 Logged 04:00 Chest Xray 1 View XY 09/10/25 Resulted 04:00 Haptoglobin LAB 09/09/25 In Process 17:41 Warm Compresses ORDERS 09/09/25 Transmitted 17:41 Skin Protectants, PHA 09/10/25 In Process Misc. (Eucerin Cream) 10:00 Complete Blood Count LAB 09/11/25 Verified 04:00 Comprehensive LAB 09/11/25 Verified Metabolic Panel 04:00 Chest Xray 1 View XY 09/11/25 Verified 04:00 Abg W/ Co-Ox RT 09/11/25 Verified 04:00 Dietary Evaluation Review Comments: 1. nepro 35/hr providing 68g pro, 1487kcal, 611ml free water, meeting 107% energy needs, 80% protein needs 2. Increase amount of Protein support for wound healing when/if pt's kidney function impvoes. F/U and reassess when pt is off vent and PRN. Expected Outcomes/Goals: Adequate nutrition support for being on mechanical ventilation CC Plasma Assessment Blood Product Administration S: 06:05 Date of Service: Sep 10, 2025 Billing Provider: KEYA SINGLETON MD Common Visit Codes: 54037-CMIHSHXH CARE 30-74 MIN, 75117-WQVVQQHT CARE-EACH +30MIN FRANCIS PRESSLEY RESIDENT Sep 10, 2025 17:04 KEYA SINGLETON MD Sep 12, 2025 12:32
--- NOTE | 2025-09-10 21:57 | DVHPN2 ---
Progress Note - Dictate Date Seen: Sep 10, 2025 Has the PT tested + for MRSA If YES, has PT been informed?: No Medical Necessity Reason Pt with a Central, PICC or Fol: Yes The following are medically ne: Central Line, Sams Catheter Subjective Patient was seen and evaluated in follow up in the ICU. Patient is intubated and sedated on ventilator. 30% FiO2. EEG was remarkably abnormal EEG, this EEG is seen in severe cerebral dysfunction due to metabolic/hypoxic encephalopathy or medication effects, unless this is caused by reversible etiology, this EEG is suggestive of a poor prognosis for meaningful recovery. The EKG channel showed a regular heart rate of 72/min. HGB 7.5, HCT 23.1, BUN 67, SENIOR SOFTWARE TEST ENGINEER 5.90, AST 182, ALT 339. Chest x-ray remains unchanged. vital signs Vital Sign Date Time Temp Pulse Resp B/P (MAP) Pulse Ox O2 Delivery O2 Flow Rate FiO2 09/10/25 10:11 102 15 124/81 (95) 96 30 09/10/25 06:00 Mechanical Ventilator+ 09/10/25 04:00 98.4 98.4 09/09/25 19:01 50.0 Total Intake and Output 09/09/25 09/09/25 09/10/25 15:00 23:00 07:00 Intake Total 226.0 ml 60.0 ml 411.5 ml Output Total 150 ml 120 ml Balance 226.0 ml -90.0 ml 291.5 ml medications Current Medications Medications Dose Ordered Sig/Ese Route Start Time Stop Time Status Last Admin Dose Admin Norepinephrine Bitartrate 250 ml @ 3.75 mls/hr Q24H IV 09/04/25 02:00 09/10/25 01:22 7.5 MLS/HR Diagnostic Test (Pha) 1 strip ACHS 09/04/25 07:00 09/10/25 06:25 1 STRIP Insulin Human Regular ACHS SC 09/04/25 07:00 09/10/25 06:34 3 UNITS Dextrose 50 ml UD PRN IV 09/04/25 05:15 Pantoprazole Sodium 40 mg DAILY IV 09/06/25 10:00 09/10/25 10:52 40 MG Enteral Nutritional Formula 1,000 ml 35ML/HR GT 09/06/25 11:00 09/09/25 19:54 1,000 ML Artificial Tears 1 drop Q4HP PRN EACHEYE 09/08/25 18:00 09/08/25 18:34 1 DROP Epoetin Nahun-epbx 10,000 unit MWF@2100 [place] 09/09/25 21:00 09/09/25 22:06 10,000 UNIT Multi-Ingredient Ointment 1 applic DAILY TOP 09/10/25 10:00 Iron Sucrose 110 ml @ 110 mls/hr DAILY@1200 IV 09/10/25 12:00 09/14/25 12:59 Doxycycline Hyclate 100 ml @ 50 mls/hr Q12H IV 09/10/25 11:00 objective GENERAL: Ill appearing, intubated on ventilator. EYES: PERRL, EOMI. Anicteric. HENT: Moist mucous membranes. LUNGS: Decreased breath sounds. CARDIOVASCULAR: Regular rate and rhythm. ABDOMEN: Soft, nontender and nondistended. EXTREMITIES: No edema. SKIN: Warm, dry. laboratory and microbiology Laboratory Tests 09/10/25 03:06 Test 09/10/25 03:06 Range/Units Serum Glucose 150 H 74-106 mg/dL Problem List Cardiopulmonary arrest with ROSC. Ventricular fibrillation arrest with defibrillation at 100J. Non ST-elevation myocardial infarction. Acute anemia status post blood transfusion (-FOBT). Acute hypoxic respiratory failure. Likely KIMI on CKD. Left nephrectomy. Shocked Liver. Dyslipidemia, newly diagnosed. Cerebral and cerebellar edema, anoxic brain injury. ? Suspected PE with RV failure and PAH. Assessment/Plan Continued all current supportive medical care. GI prophylactics. IV antibiotics as ordered. Vasopressors for hemodynamic support. Additional plan as per the hospital course. Critical care time of 45 minutes provided to include time spent evaluation of patient at bedside, when appropriate patient/family education for diagnosis, treatment plan, review of pertinent medical information and discussion of care with specialty providers and PCP. Mechanical ventilator parameters, treatment and adjustments have personally been reviewed by me and treatment plan by solid waste technician has also been reviewed. Dietary Evaluation Review Comments: 1. nepro 35/hr providing 68g pro, 1487kcal, 611ml free water, meeting 107% energy needs, 80% protein needs 2. Increase amount of Protein support for wound healing when/if pt's kidney function impvoes. F/U and reassess when pt is off vent and PRN. Expected Outcomes/Goals: Adequate nutrition support for being on mechanical ventilation Plan discussed with: Other CC Plasma Assessment Blood Product Administration S: 06:05 RISHI SOARES MD Sep 10, 2025 11:43
[2025-09-11] VITALS (108 sets, daily range): BP systolic 84–170; BP diastolic 35–81; PULSE 67–95; RESP 8–15; TEMP 97.6–97.9; O2SAT 94–100
[2025-09-11 03:15] LABS: Hematocrit 22.2 % (36.0-46.0); Hemoglobin 7.1 g/dL (12.2-16.2); Nucleated Red Blood Cells % 0.2 %
[2025-09-11 03:18] LABS: Mean Corpuscular Hemoglobin 21.8 pg (28.0-32.0); Mean Corpuscular Volume 68.0 fL (80.0-100.0)
[2025-09-11 03:22] LABS: Anion Gap 10 (5-15); BUN/Creatinine Ratio 10.8 (10.0-20.0); Calcium 8.8 mg/dL (8.7-10.4); Carbon Dioxide 30 mmol/L (20-31); Chloride 104 mmol/L (98-107); Glucose 100 mg/dL (74-106); Potassium 3.7 mmol/L (3.5-5.1); Sodium 144 mmol/L (136-145)
[2025-09-11 03:36] LABS: Alanine Aminotransferase 240 U/L (7-40); Albumin 2.6 g/dL (3.2-4.8); Alkaline Phosphatase 180 U/L (46-116); Bilirubin, Total 0.2 mg/dL (0.2-1.0); Blood Urea Nitrogen 43 mg/dL (9-23); Total Protein 5.3 g/dL (5.7-8.2)
--- NOTE | 2025-09-11 05:41 | DVH ---
CHEST RADIOGRAPH Indication: Acute hypoxic respi failure Technique: 1 view Comparison: XY CHEST XRAY 1 VIEW on DOS: 09/10/25, XY CHEST XRAY 1 VIEW on DOS: 09/09/25, XY CHEST XRAY 1 VIEW on DOS: 09/08/25, XY CHEST XRAY 1 VIEW on DOS: 09/07/25, XY CHEST PORTABLE on DOS: 09/06/25 FINDINGS: Lines and Tubes: Unchanged. Lungs/Pleura: Unchanged. Cardiomediastinum: Unchanged. Other: Unchanged osseous structures. IMPRESSION: 1. No change from the previous study. Stable support devices. Persistent right greater than left mid to basilar opacities.
[2025-09-11 08:28] LABS: Base Excess 6.1 mmol/L (-2.0-3.0)
--- NOTE | 2025-09-11 12:00 | DVHPN2 ---
Progress Note Date Seen: Sep 11, 2025 Resident Creating Document: CHDII BOWERS RESIDENT Has the PT tested + for MRSA If YES, has PT been informed?: No Medical Necessity Reason Pt with a Central, PICC or Fol: Yes The following are medically ne: Central Line, Sams Catheter Subjective Review of Systems Patient seen and examined at the bedside. Unable to obtain ROS due to patient's clinical status currently on mechanical ventilation. Objective vital signs Vital Sign Date Time Temp Pulse Resp B/P (MAP) Pulse Ox O2 Delivery O2 Flow Rate FiO2 09/11/25 10:30 88 15 94/46 (62) 98 30 09/11/25 08:00 Mechanical Ventilator+ 09/11/25 04:00 97.9 97.9 09/09/25 19:01 50.0 Total Intake and Output 09/10/25 09/10/25 09/11/25 15:00 23:00 07:00 Intake Total 210.305 ml 142 ml 429 ml Output Total 1540 ml 50 ml Balance 210.305 ml -1398 ml 379 ml medications Current Medications Medications Dose Ordered Sig/Ese Route Start Time Stop Time Status Last Admin Dose Admin Norepinephrine Bitartrate 250 ml @ 3.75 mls/hr Q24H IV 09/04/25 02:00 09/10/25 01:22 7.5 MLS/HR Diagnostic Test (Pha) 1 strip ACHS 09/04/25 07:00 09/11/25 10:57 1 STRIP Insulin Human Regular ACHS SC 09/04/25 07:00 09/11/25 06:03 2 UNITS Dextrose 50 ml UD PRN IV 09/04/25 05:15 Pantoprazole Sodium 40 mg DAILY IV 09/06/25 10:00 09/11/25 10:44 40 MG Enteral Nutritional Formula 1,000 ml 35ML/HR GT 09/06/25 11:00 09/09/25 19:54 1,000 ML Artificial Tears 1 drop Q4HP PRN EACHEYE 09/08/25 18:00 09/08/25 18:34 1 DROP Epoetin Nahun-epbx 10,000 unit MWF@2100 SC 09/09/25 21:00 09/09/25 22:06 10,000 UNIT Multi-Ingredient Ointment 1 applic DAILY TOP 09/10/25 10:00 09/11/25 11:04 1 APPLIC Iron Sucrose 110 ml @ 110 mls/hr DAILY@1200 IV 09/10/25 12:00 09/14/25 12:59 09/10/25 14:33 110 MLS/HR Doxycycline Hyclate 100 ml @ 50 mls/hr Q12H IV 09/10/25 11:00 09/11/25 10:50 50 MLS/HR Examination General Appearance: Intubated RASS -3 HEENT: Bilateral pupils are dilated, and nonreactive to the light Respiratory: Clear to auscultation, Normal air movement Cardiovascular: Regular rate, Normal S1, Normal S2, Abdominal: Normal bowel sounds, Soft, No tenderness, No hepatospenomegaly, No masses Extremities: 2+ edematous all extremities Skin: No rashes, No breakdown, No significant lesion Neuro: Absent gag reflex Psych/Mental Status: Mental status NL, Mood NL laboratory and microbiology Laboratory Tests 09/11/25 02:30 Test 09/11/25 02:30 Range/Units Serum Glucose 100 74-106 mg/dL Microbiology Date/Time Source Procedure Growth Status 09/04/25 23:21 Urine - Sams Port Urine Culture - Final Complete 09/04/25 10:00 Nose MRSA Screen - Final Complete 09/04/25 04:22 Sputum Expectorated Sputum Gram Stain - Final Complete 09/04/25 04:22 Respiratory Culture - Final Staphylococcus aureus Complete 09/04/25 01:40 Blood Blood Culture - Final NO GROWTH AFTER 5 DAYS OF INCUBATION. Complete Labs and/or images reviewed: Labs reviewed by me, Image(s) reviewed by me Problem List/Assessment/Plan Problem List/Assessment/Plan KIMI, from [facility] (baseline not available), due to cardiac arrest requiring hemodialysis Hyperkalemia Metabolic acidosis Status post cardiac arrest, Anoxic encephalopathy Cardiogenic/septic shock NSTEMI Anxiety and depression Plan/recommendation: IV Lasix drip HD yesterday & next session possible tomorrow Vasopressor per primary team We will evaluate kidney function on daily basis, Avoid nephrotoxic medication Strict I&Os Ct head--anoxic encephalopathy EEG/perfusion scan showed anoxic brain injury Poor prognosis Case discussed with Dr. Oliveira Plan discussed with: Spouse, Daughter Dietary Evaluation Review Comments: 1. nepro 35/hr providing 68g pro, 1487kcal, 611ml free water, meeting 107% energy needs, 80% protein needs 2. Increase amount of Protein support for wound healing when/if pt's kidney function impvoes. F/U and reassess when pt is off vent and PRN. Expected Outcomes/Goals: Adequate nutrition support for being on mechanical ventilation CC Plasma Assessment Blood Product Administration S: 06:05 CHIDI BOWERS RESIDENT Sep 11, 2025 12:00
--- NOTE | 2025-09-11 14:01 | DVHPN2 ---
Progress Note - Dictate Date Seen: Sep 11, 2025 Has the PT tested + for MRSA If YES, has PT been informed?: No Medical Necessity Reason Pt with a Central, PICC or Fol: Yes The following are medically ne: Central Line, Sams Catheter Subjective Patient was seen and evaluated in follow up in the ICU. Patient is intubated and sedated on ventilator. 30% FiO2. NM Brain flow study: findings likely representing brain however clinical correlation is needed. Chest x-ray shows persistent right greater than left mid to basilar opacities. HGB 7.1, HCT 22.2, BUN 43, TAXICAB STARTER 4, AST 130, ALT 240. vital signs Vital Sign Date Time Temp Pulse Resp B/P (MAP) Pulse Ox O2 Delivery O2 Flow Rate FiO2 09/11/25 10:30 88 15 94/46 (62) 98 30 09/11/25 08:00 Mechanical Ventilator+ 09/11/25 04:00 97.9 97.9 09/09/25 19:01 50.0 Total Intake and Output 09/10/25 09/10/25 09/11/25 15:00 23:00 07:00 Intake Total 210.305 ml 142 ml 429 ml Output Total 1540 ml 50 ml Balance 210.305 ml -1398 ml 379 ml medications Current Medications Medications Dose Ordered Sig/Ese Route Start Time Stop Time Status Last Admin Dose Admin Norepinephrine Bitartrate 250 ml @ 3.75 mls/hr Q24H IV 09/04/25 02:00 09/10/25 01:22 7.5 MLS/HR Diagnostic Test (Pha) 1 strip ACHS 09/04/25 07:00 09/11/25 10:57 1 STRIP Insulin Human Regular ACHS SC 09/04/25 07:00 09/11/25 06:03 2 UNITS Dextrose 50 ml UD PRN IV 09/04/25 05:15 Pantoprazole Sodium 40 mg DAILY IV 09/06/25 10:00 09/11/25 10:44 40 MG Enteral Nutritional Formula 1,000 ml 35ML/HR GT 09/06/25 11:00 09/09/25 19:54 1,000 ML Artificial Tears 1 drop Q4HP PRN EACHEYE 09/08/25 18:00 09/08/25 18:34 1 DROP Epoetin Nahun-epbx 10,000 unit MWF@2100 SC 09/09/25 21:00 09/09/25 22:06 10,000 UNIT Multi-Ingredient Ointment 1 applic DAILY TOP 09/10/25 10:00 09/11/25 11:04 1 APPLIC Iron Sucrose 110 ml @ 110 mls/hr DAILY@1200 IV 09/10/25 12:00 09/14/25 12:59 09/11/25 12:04 110 MLS/HR Doxycycline Hyclate 100 ml @ 50 mls/hr Q12H IV 09/10/25 11:00 09/11/25 10:50 50 MLS/HR objective GENERAL: Ill appearing, intubated on ventilator. EYES: PERRL, EOMI. Anicteric. HENT: Moist mucous membranes. LUNGS: Decreased breath sounds. CARDIOVASCULAR: Regular rate and rhythm. ABDOMEN: Soft, nontender and nondistended. EXTREMITIES: No edema. SKIN: Warm, dry. laboratory and microbiology Laboratory Tests 09/11/25 02:30 Test 09/11/25 02:30 Range/Units Serum Glucose 100 74-106 mg/dL Problem List Cardiopulmonary arrest with ROSC. Ventricular fibrillation arrest with defibrillation at 100J. Non ST-elevation myocardial infarction. Acute anemia status post blood transfusion (-FOBT). Acute hypoxic respiratory failure. Likely KIMI on CKD. Left nephrectomy. Shocked Liver. Dyslipidemia, newly diagnosed. Cerebral and cerebellar edema, anoxic brain injury. ? Suspected PE with RV failure and PAH. Assessment/Plan Continued all current supportive medical care. IV antibiotics as ordered. GI prophylactics. Vasopressors for hemodynamic support. Additional plan as per the hospital course. Critical care time of 45 minutes provided to include time spent evaluation of patient at bedside, when appropriate patient/family education for diagnosis, treatment plan, review of pertinent medical information and discussion of care with specialty providers and PCP. Mechanical ventilator parameters, treatment and adjustments have personally been reviewed by me and treatment plan by candy department manager has also been reviewed. Dietary Evaluation Review Comments: 1. nepro 35/hr providing 68g pro, 1487kcal, 611ml free water, meeting 107% energy needs, 80% protein needs 2. Increase amount of Protein support for wound healing when/if pt's kidney function impvoes. F/U and reassess when pt is off vent and PRN. Expected Outcomes/Goals: Adequate nutrition support for being on mechanical ventilation Plan discussed with: Other CC Plasma Assessment Blood Product Administration S: 06:05 RISHI SOARES MD Sep 11, 2025 12:18
--- NOTE | 2025-09-11 14:41 | DVHPNRES ---
Progress Note Date Seen: Sep 11, 2025 Resident Creating Document: FRANCIS PRESSLEY RESIDENT Has the PT tested + for MRSA If YES, has PT been informed?: No Medical Necessity Reason Pt with a Central, PICC or Fol: Yes The following are medically ne: Central Line, Sams Catheter Subjective Review of Systems The patient is a 40-year-old female with past medical history of anxiety, UTIs, and kidney stones who presented to [facility] ED for evaluation of cardiac arrest. As reported by EMS/family, patient had cardiac arrest, was asystole 1238 a.m., CPR initiated by family. Patient was initially anxious but was not having any complaints like chest pain or shortness of breath. EMS were on the scene within 5 minutes, CPR continued, patient was given IV fluid, epinephrine x2, became VFib so patient was shocked at 100 joules, Narcan given, became asystole again upon arrival at ER at 0108 hours, blood sugar upon arrival was 43, ROSC obtained at 0112 a.m. Family also reports that patient was depressed for the past 5 years, she has been staying in bed with decreased oral intake, had a fall injury in April resulting in arm and hip fracture. They denied any other significant past medical history. Patient was seen and evaluated in the ED, laboratory data shows WBC 8.8, hemoglobin 6.4, hematocrit 25.0, platelets 260, sodium 151, potassium 6.3, BUN 29, creatinine 2.52, GFR 24, glucose 146, anion gap 28.001, calcium 7.9, lactic acid 21.1 trending down to 15.2, magnesium 4.1, AST 2482, ALT 1430, troponin 2769, BNP 8.48, lipase 31, protein 4.8, albumin 2.7, blood pressure 151/22 trending up to 107/30, heart rate 106, temperature 94.2 F, O2 saturation 97% on ventilator. Head CT showed no acute intracranial abnormality. Patient was started on IV antibiotic regimen vancomycin, please see medication orders section in the computer. On my assessment, patient remains fully intubated, no diaphoresis, no diarrhea, vomiting, no fever. Patient was admitted for further evaluation and medical management. past surgical history; family denies family history: noncontributory past social history: patient lives with the family, denies any smoking, alcohol, drug use 09/06/25: patient seen in ICU. Patient is intubated, on Levophed o, off sedation. Head CT showed diffuse cerebral and cerebellar edema due to anoxic brain injury. neurology following, neurology stated poor prognosis. Kidney functions worsening. Patient's family states before admission patient has seizure-like activity, loss of consciousness which was on and off during the whole day. 09/07/25 40-year-old female in the ICU following cardiopulmonary arrest on 09/04/25, now with severe anoxic brain injury. * Intubated, mechanically ventilated * Off all sedation * No spontaneous movements * No response to pain * No brainstem reflexes: absent corneal, cough, gag, oculocephalic reflexes * Pupils 8 mm, fixed, nonreactive * Family updated todaypoor prognosis discussed, but family chooses FULL CODE and wants everything done Overnight: * Urine output 250 mL total/ 0.15ML/KG/HR * Sams in place, urine nxos-cc-dotet annia * Tube feeds restarted, residuals 15 mL, tolerated * Small bowel movement today * Yamileth-care and sacral wound care performed EEG completed at bedside today for assessment of anoxic injury. Hemodynamics: * On norepinephrine drip for shock Respiratory: * Lungs clear except mild right basal infiltrates Consults: Neurology and Nephrology actively following. 09/08/25 The patient remains critically ill, intubated, mechanically ventilated, and off all sedation since 09/05. Overnight and through today, there continues to be no neurologic improvement. * Mental status unchanged and remains unresponsive/comatose * EEG yesterday inconclusive. Neurology now ordering brain perfusion scan today for brain evaluation * On norepinephrine drip, titrated 8 - 4 mcg/min * CXR today: no major change, persistent bilateral mixed pulmonary opacities and probable small pleural effusions * Oliguria continues * Urine output overnight: 100 mL * Total UO last 24h: 200 mL * Nephrology discontinued Lasix 80 mg BID * Lasix drip started * IR consulted for tunneled dialysis catheter placed today * Plan for hemodialysis/LOW VISION THERAPIST likely tomorrow Patient remains in critical multiorgan dysfunction with severe irreversible anoxic brain injury, worsening renal failure requiring LOW VISION THERAPIST preparation, hemodynamic instability requiring vasopressors, and persistent respiratory failure on the ventilator. No neurologic recovery. Full code per family request. 09/09/25 The patient remains critically ill, intubated, mechanically ventilated, and off all sedation since 09/05. Overnight and through today, there continues to be no neurologic improvement. * Mental status unchanged and remains unresponsive/comatose * EEG yesterday inconclusive . Neurology now ordering brain perfusion scan today for brain evaluation * Oliguria continues * IR consulted tunneled dialysis catheter today * Plan for hemodialysis/LOW VISION THERAPIST likely tomorrow, patient developed b/l upper extremity rash near the right elbow and left antecubital fossa. Patient remains in critical multiorgan dysfunction with severe irreversible anoxic brain injury, worsening renal failure requiring LOW VISION THERAPIST preparation, hemodynamic instability requiring vasopressors, and persistent respiratory failure on the ventilator. No neurologic recovery.Full code per family request. 09/10/25 he patient continues to remain critically ill, unresponsive, mechanically ventilated, off all sedation, with severe anoxic brain injury and no signs of neurologic recovery. Family continues to request FULL CODE and continuation of all aggressive medical care. * Urine output: 0.16 mL/kg/hr (severely oliguric) * Yesterday: Hemodialysis with 700 mL ultrafiltration * Today: Plan for 11.5 L ultrafiltration * Tunneled right IJ permacath placed 09/09 * Lasix drip discontinued * Creatinine 5.9 (improving from 7.58) * Iron studies: * Iron 11 (low),TIBC 204 (low),Saturation 5.4% (severely low),Ferritin 132 * EEG: Severe diffuse cerebral dysfunction consistent with severe hypoxic metabolic encephalopathy * Poor prognosis confirmed by neurology * Brain perfusion nuclear scan scheduled today/tomorrow for brain evaluation * Diffuse purpuric rash spreading over upper extremities and lower extremities * Ecchymosis + petechiae + non-blanching lesions * Rash progression after Unasyn possible beta-lactam hypersensitivity * Unasyn discontinued today * Doxycycline started 09/11/25 The patient was examined at bedside this morning. She remains critically ill, mechanically ventilated, unresponsive, and off all sedation. Today's major update is the nuclear brain perfusion scan showing complete absence of intracranial perfusion with hot-nose sign, radiologically consistent with BRAIN , pending final neurologic confirmation. Family was updated about the extremely poor prognosis; however, they insist on FULL CODE and full aggressive care. * When repositioned, HR drops into 30s returned to baseline after stabilization * SpO2: 98% on FiO2 30% * No fever * Urine output: 0.05 mL/kg/hr (severe oliguria) * HD yesterday removed 1.5 L UF * HD planned again tomorrow REVIEW OF SYSTEMS (limited ) * General: No fever * Resp: On mechanical ventilation * CV: Unable to report symptoms * GI: Tube fed, one BM * : Oliguric * Neuro: No response, comatose * Skin: Diffuse purpuric rash improving Objective vital signs Vital Sign Date Time Temp Pulse Resp B/P (MAP) Pulse Ox O2 Delivery O2 Flow Rate FiO2 09/11/25 14:15 89 15 104/53 (70) 97 09/11/25 14:09 30 09/11/25 08:00 Mechanical Ventilator+ 09/11/25 04:00 97.9 97.9 09/09/25 19:01 50.0 Total Intake and Output 09/10/25 09/10/25 09/11/25 15:00 23:00 07:00 Intake Total 210.305 ml 142 ml 429 ml Output Total 1540 ml 50 ml Balance 210.305 ml -1398 ml 379 ml medications Current Medications Medications Dose Ordered Sig/Ese Route Start Time Stop Time Status Last Admin Dose Admin Norepinephrine Bitartrate 250 ml @ 3.75 mls/hr Q24H IV 09/04/25 02:00 09/10/25 01:22 7.5 MLS/HR Diagnostic Test (Pha) 1 strip ACHS 09/04/25 07:00 09/11/25 10:57 1 STRIP Insulin Human Regular ACHS SC 09/04/25 07:00 09/11/25 06:03 2 UNITS Dextrose 50 ml UD PRN IV 09/04/25 05:15 Pantoprazole Sodium 40 mg DAILY IV 09/06/25 10:00 09/11/25 10:44 40 MG Enteral Nutritional Formula 1,000 ml 35ML/HR GT 09/06/25 11:00 09/09/25 19:54 1,000 ML Artificial Tears 1 drop Q4HP PRN EACHEYE 09/08/25 18:00 09/08/25 18:34 1 DROP Epoetin Nahun-epbx 10,000 unit MWF@2100 SC 09/09/25 21:00 09/09/25 22:06 10,000 UNIT Multi-Ingredient Ointment 1 applic DAILY TOP 09/10/25 10:00 09/11/25 11:04 1 APPLIC Iron Sucrose 110 ml @ 110 mls/hr DAILY@1200 IV 09/10/25 12:00 09/14/25 12:59 09/11/25 12:04 110 MLS/HR Doxycycline Hyclate 100 ml @ 50 mls/hr Q12H IV 09/10/25 11:00 09/11/25 10:50 50 MLS/HR Examination General Intubated, critically ill, unresponsive. Neuro * GCS 3T * Pupils 8 mm and fixed bilaterally * No corneal, cough, gag, or oculocephalic reflexes * No spontaneous movement * No withdrawal to pain * Eyelid swelling and conjunctival injection * Rigid upper extremities * Nuclear scan consistent with brain HEENT * Scleral edema * Conjunctival injection Cardiovascular * Regular rhythm, pulses palpable * Hypotensive episodes when repositioned Respiratory * AC/VC; symmetric chest rise * No adventitious sounds GI * Abdomen soft, mildly distended * OG tube in place with minimal secretions * Sams draining minimal urine * Severe oliguria Skin * Diffuse purpuric rash on arms/legs * Patchy petechiae * Ecchymosis in various stages of healing * Sacral scab improving Extremities * Non-pitting edema Lines/Tubes * ETT * OG tube * Left femoral central line * Right IJ tunneled HD catheter * Sams catheter laboratory and microbiology Laboratory Tests 09/11/25 02:30 Test 09/11/25 02:30 Range/Units Serum Glucose 100 74-106 mg/dL Microbiology Date/Time Source Procedure Growth Status 09/04/25 23:21 Urine - Sams Port Urine Culture - Final Complete 09/04/25 10:00 Nose MRSA Screen - Final Complete 09/04/25 04:22 Sputum Expectorated Sputum Gram Stain - Final Complete 09/04/25 04:22 Respiratory Culture - Final Staphylococcus aureus Complete 09/04/25 01:40 Blood Blood Culture - Final NO GROWTH AFTER 5 DAYS OF INCUBATION. Complete Problem List/Assessment/Plan Problem List/Assessment/Plan ASSESSMENT /PLAN SYSTEM HODGE NEUROLOGY * Severe anoxic brain injury; extremely poor prognosis Metabolic encephalopathy (secondary to anoxic injury) # Sedation -off sedation # History of anxiety # Seizure like activity ? -neurology on board - neurology stated poor prognosis * Continue neuro checks Q1H * Maintain normothermia * Avoid hypotension/hypoxia * Nuclear brain perfusion scan consistent with brain (awaiting neurologic confirmation) * EEG: Severe diffuse cerebral dysfunction consistent with severe hypoxic metabolic encephalopathy CARDIOVASCULAR Postcardiac arrest state (VF arrest - ROSC) . Mixed cardiogenic + septic shock on norepinephrine # heart failure with reduced ejection fraction likely post cardiac arrest # Dyslipidemia # Non ST-elevation myocardial infarction likely type 2 status post cardiac arrest, type 1 not ruled out -head CT -ekg -echo : Conclusion MODERATELY DILATED RV AND IS HYPOKINETIC DYSKINESIS OF IVS RVSP IS 40 MM OF HG AND IS HIGH STUDY CONFIRM RV FAILURE GLOBAL LV HYPOKINESIS LV EF IS 40% AND IS REDUCED NORMAL VALVES NO EFFUSION * Continue norepinephrine to maintain MAP >65 * Monitor for multi-organ shock progression.* Avoid hypotension to preserve brain perfusion * Cardiology involved * Daily EKG * Trend troponins Given anoxic brain injury, the patient is not a candidate for invasive cardiac work-up as per cardiology continue conservative medical management. * Bradycardia episodes with repositioning move gently RESPIRATORY Acute hypoxic respiratory failure requiring mechanical ventilation * AC/VC: RR 15, TV 450, PEEP 5, FiO2 30% * VAP bundle * Daily CXR * Oral care Q4H * SBT contraindicated INFECTIOUS DISEASE MSSA / possible aspiration pneumonia * STOPPED Unasyn today due to allergic rash * continue doxycycline * Continue to monitor rash progression * Monitor sputum, blood, urine cultures * COVID/Flu negative * WBC (mild improvement) HEMATOLOGY Microcytic anemia # severe anemia requiring blood transfusion -1 unit of PRBC transfused Started on IV IRON # coagulopathy likely due to sepsis Monitor Thrombocytopenia (Plt 124) * * Hgb stable at 7.5 , Discontinued Heparin, transfuse only if <7 * Platelets normal * DVT prophylaxis: Heparin held due to anemia * Use SCDs RENAL * KIMI stage 3 on solitary kidney *Dialysis-dependent renal failure * UF yesterday 1.5 L; UF tomorrow * Avoid nephrotoxins * Daily BMP, Mg, Phos hyperkalemia Corrected # hypernatremia -initially corrected with a half NS # metabolic acidosis due to sepsis Monitor ABG # respiratory alkalosis Decrease respiratory rate to 12 # hypomagnesemia Monitor Urology # complicated urinary tract infection -on antibiotics # Punctate nonobstructing right renal calculi. Seen on ultrasound # Left nephrectomy. Seen on ultrasound GI / NUTRITION Shock liver (AST/ALT markedly elevated) now improving * Continue Nepro tube feeds @ 35 mL/hr * Check residuals Q4H * PPI for ulcer prophylaxis * Monitor stool output ENDOCRINE * Insulin ACHS * Maintain BG [id number] SKIN / MSK * Stage 1 sacral ulcer * Wound care following * Reposition Q2H * Beta-lactam hypersensitivity improving Ensure no heparin products (including flushes) STOP beta-lactams (done) Start doxycycline (done) Warm compresses to affected areas Reposition Q2H to reduce pressure contribution NO signs of cellulitis (no warmth) Topical emollients (Aquaphor) to reduce skin breakdown Monitor platelets daily OPHTHALMOLOGY * Conjunctival injection, swollen eyelids * Start Lacri-lube eye drops Q6H LINES / TUBES * ETT (09/04) * OG tube * Left femoral central line (09/04) * Sams catheter Right IJ tunneled dialysis catheter (09/09) * Daily line necessity review PROPHYLAXIS * DVT: SCDs only * GI: Pantoprazole * Ulcer: Q2H turns * VAP: oral care, CHG, HOB elevation SOCIAL WORK / FAMILY SUPPORT * Family updated extensively * Full code requested * Social work available for support CODE STATUS FULL CODE Family updated today; despite detailed prognosis counseling, they request full aggressive measures and full code total time spent >20 mins CRITICAL CARE TIME 83 minutes of critical care time spent today, excluding procedure time. . DISCUSSION WITH ATTENDING Case reviewed in detail with attending physician Dr Marquez. Management plan jointly agreed upon. including the clinical presentation, diagnostic workup, and comprehensive management plan. The patient's family was present for the discussion and demonstrated understanding of his condition and the proposed plan. Plan discussed with: Spouse, Daughter My Orders My Orders Orders - FRANCIS PRESSLEY RESIDENT Procedure Category Date Status Time Chest Xray 1 View XY 09/11/25 Resulted 04:00 Abg W/ Co-Ox RT 09/11/25 Logged 04:00 Dietary Evaluation Review Comments: 1. nepro 35/hr providing 68g pro, 1487kcal, 611ml free water, meeting 107% energy needs, 80% protein needs 2. Increase amount of Protein support for wound healing when/if pt's kidney function impvoes. F/U and reassess when pt is off vent and PRN. Expected Outcomes/Goals: Adequate nutrition support for being on mechanical ventilation CC Plasma Assessment Blood Product Administration S: 06:05 FRANCIS PRESSLEY RESIDENT Sep 11, 2025 14:41
--- NOTE | 2025-09-11 18:46 | DVHPN2 ---
Progress Note - Dictate Date Seen: Sep 11, 2025 Has the PT tested + for MRSA If YES, has PT been informed?: No Medical Necessity Reason Pt with a Central, PICC or Fol: Yes The following are medically ne: Central Line, Sams Catheter Subjective Ms. Murillo is a 40 years old female with a history of kidney stone, depression, anxiety, she was brought to the [facility] on 09/04/2025 with a chief complaint of cardio pulmonary arrest I have seen and examined the patient, I have discussed with her nurse during daytime and in the evening, she is nonresponsive to stronger painful stimuli, pupils are symmetric, 6mm, fixed No posturing noticed Urinalysis, 09/04/2025: WBC: 37, urine leukocyte esterase: Negative UDS, 09/04/2025: Negative Plasma alcohol, 09/04/2025: <3 ABG, 09/10/2025: Metabolic acidosis WBC/HB/PLT/MCV, 09/04/2025: 8.8/6.4/260/79.8 PT/INR/ABG, 09/04/2025: 70.4/1.73/ Na, 09/04/2025: 151, 148, 140 K, 09/04/2025: 6.3, 4.6, 3.2 BUN/CR, 09/04/2025: 30/2.69 TBI/AST/ALT/AP, 09/04/2025: 0.11/2481/4030/74, 0.01/5737/2100/93 Glucose, 09/04/2025: 146, 294, 503 HGB A1c, 09/04/2025: 5 Lactic acid, 09/04/2025: 21.1, or 15.2 Troponin one high sensitivity, 09/04/2025: 2769, 5664, 7574 TG/HDL/LDL/HDL, 09/04/2025: 186/86/41/25 Extremity venous study, 09/04/2025: NO SONOGRAPHIC EVIDENCE FOR DEEP VENOUS THROMBOSIS IN THE BILATERAL LOWER EXTREMITY VEINS Cerebral flow, 09/10/2025: Findings likely representing brain however clinical correlation is needed. CT head, 09/04/25: No acute intracranial abnormality (I saw evidence suggestive of early diffuse brain edema) CT head 09/05/25: Findings are consistent with severe diffuse cerebral and cerebellar edema possibly representing anoxic brain injury. vital signs Vital Sign Date Time Temp Pulse Resp B/P (MAP) Pulse Ox O2 Delivery O2 Flow Rate FiO2 09/11/25 18:37 80 15 90/50 (63) 99 30 09/11/25 18:00 Mechanical Ventilator+ 09/11/25 04:00 97.9 97.9 09/09/25 19:01 50.0 Total Intake and Output 09/10/25 09/10/25 09/11/25 14:59 22:59 06:59 Intake Total 207.805 ml 252 ml 429 ml Output Total 1540 ml 50 ml Balance 207.805 ml -1288 ml 379 ml medications Current Medications Medications Dose Ordered Sig/Ese Route Start Time Stop Time Status Last Admin Dose Admin Norepinephrine Bitartrate 250 ml @ 3.75 mls/hr Q24H IV 09/04/25 02:00 09/10/25 01:22 7.5 MLS/HR Diagnostic Test (Pha) 1 strip ACHS 09/04/25 07:00 09/11/25 17:25 1 STRIP Insulin Human Regular ACHS SC 09/04/25 07:00 09/11/25 18:13 2 UNITS Dextrose 50 ml UD PRN IV 09/04/25 05:15 Pantoprazole Sodium 40 mg DAILY IV 09/06/25 10:00 09/11/25 10:44 40 MG Enteral Nutritional Formula 1,000 ml 35ML/HR GT 09/06/25 11:00 09/09/25 19:54 1,000 ML Artificial Tears 1 drop Q4HP PRN EACHEYE 09/08/25 18:00 09/08/25 18:34 1 DROP Epoetin Nahun-epbx 10,000 unit MWF@2100 NV 09/09/25 21:00 09/09/25 22:06 10,000 UNIT Multi-Ingredient Ointment 1 applic DAILY TOP 09/10/25 10:00 09/11/25 11:04 1 APPLIC Iron Sucrose 110 ml @ 110 mls/hr DAILY@1200 IV 09/10/25 12:00 09/14/25 12:59 09/11/25 12:04 110 MLS/HR Doxycycline Hyclate 100 ml @ 50 mls/hr Q12H IV 09/10/25 11:00 09/11/25 10:50 50 MLS/HR objective The patient is well-nourished and well-developed with no distress. The patient is intubated MENTAL STATUS: Nonresponsive stroke painful stimuli CRANIAL NERVES: Pupils are equal, round, dilated and fixed, Rt: 4-5mm, Lt: 6mm. There are no corneal reflexes and doll's eyes phenomenon. No signs of facial weakness. There are no gagging or coughing reflexes SENSATION: No responses to strong pain stimuli. MOTOR: Normal tone in the upper and lower extremity. Normal muscle bulk. No fasciculations. No spontaneous movement. REFLEXES: Deep tendon reflexes are symmetrical. No pathological reflexes. CEREBELLAR/COORDINATION: Deferred GAIT/STATION: deferred. laboratory and microbiology Laboratory Tests 09/11/25 02:30 Test 09/11/25 02:30 Range/Units Serum Glucose 100 74-106 mg/dL Problem List Cardiopulmonary arrest Coma/Metabolic/hypoxic encephalopathy Metabolic acidosis Acute respiratory failure Elevated troponin/heart attack Severe anemia Shocked liver Hypernatremia Brain Assessment/Plan Monitoring Supportive treatment ICU care Follow up labs Brain perfusion Stabilize vitals/pressor drip Respiratory support/vent management Oxygen Antibiotics DVT prophylaxis GI prophylaxis More recommendation per clinical course This medical document was created using an electronic medical record system with [employer] computerized dictation system. Although this document has been carefully reviewed, there may still be some phonetic and typographical errors. These areas are purely typographical due to imperfections of the software programs, and do not reflect any compromise in the patient's medical care. Prognosis Guarded Dietary Evaluation Review Comments: 1. nepro 35/hr providing 68g pro, 1487kcal, 611ml free water, meeting 107% energy needs, 80% protein needs 2. Increase amount of Protein support for wound healing when/if pt's kidney function impvoes. F/U and reassess when pt is off vent and PRN. Expected Outcomes/Goals: Adequate nutrition support for being on mechanical ventilation Plan discussed with: Other Critical Care Time(min): 30 CC Plasma Assessment Blood Product Administration S: 06:05 ALEXIS DEL ANGEL MD Sep 11, 2025 18:45
[2025-09-12] VITALS (99 sets, daily range): BP systolic 79–155; BP diastolic 31–81; PULSE 36–89; RESP 8–20; TEMP 94.5–98.1; O2SAT 93–100
--- NOTE | 2025-09-12 00:21 | DVH ---
CHEST RADIOGRAPH Indication: Acute hypoxic respiratoy failure Technique: Single frontal view of the chest was obtained COMPARISON: XY CHEST XRAY 1 VIEW on DOS: 09/11/25, XY CHEST XRAY 1 VIEW on DOS: 09/10/25, XY CHEST XRAY 1 VIEW on DOS: 09/09/25, XY CHEST XRAY 1 VIEW on DOS: 09/08/25, XY CHEST XRAY 1 VIEW on DOS: 09/07/25 FINDINGS: ET tube tip terminating 5.6 cm above the osmel. NG tube in the gastric fundal region. Right-sided dialysis line unchanged. Probable small bilateral pleural effusions with mild bibasilar atelectatic changes. Lungs otherwise generally clear. Cardiac silhouette is within normal limits. No pneumothorax or other adverse interval change. IMPRESSION: Probable small bilateral pleural effusions with mild bibasilar atelectatic changes.
[2025-09-12 04:12] LABS: Hemoglobin 7.5 g/dL (12.2-16.2)
[2025-09-12 04:14] LABS: Hematocrit 23.2 % (36.0-46.0); Mean Corpuscular Hemoglobin 22.1 pg (28.0-32.0); Mean Corpuscular Volume 68.1 fL (80.0-100.0)
[2025-09-12 04:37] LABS: Anion Gap 11 (5-15); Carbon Dioxide 29 mmol/L (20-31); Chloride 105 mmol/L (98-107); Magnesium 2.0 mg/dL (1.6-2.6); Potassium 3.9 mmol/L (3.5-5.1); Sodium 145 mmol/L (136-145)
[2025-09-12 04:38] LABS: Alanine Aminotransferase 180 U/L (7-40); Albumin 2.2 g/dL (3.2-4.8); Alkaline Phosphatase 165 U/L (46-116); BUN/Creatinine Ratio 11.7 (10.0-20.0); Bilirubin, Total 0.2 mg/dL (0.2-1.0); Blood Urea Nitrogen 64 mg/dL (9-23); Calcium 8.6 mg/dL (8.7-10.4); Glucose 111 mg/dL (74-106); Total Protein 4.5 g/dL (5.7-8.2)
[2025-09-12 05:06] LABS: Total Cells Counted 100.0 (100)
--- NOTE | 2025-09-12 05:39 | DVH ---
CHEST RADIOGRAPH Indication: NGT on Left Nare placement confirmation Technique: Single frontal view of the chest was obtained Comparison: XY CHEST XRAY 1 VIEW on DOS: 09/11/25, XY CHEST XRAY 1 VIEW on DOS: 09/11/25, XY CHEST XRAY 1 VIEW on DOS: 09/10/25 IMPRESSION: There are low lung volumes with pulmonary vascular congestion. Possible trace bilateral pleural effusions. Support lines and tubes appear unchanged in satisfactory position. There is no pneumothorax.
[2025-09-12 07:29] LABS: Base Excess 4.4 mmol/L (-2.0-3.0)
--- NOTE | 2025-09-12 08:04 | DVHPNRES ---
Progress Note Date Seen: Sep 12, 2025 Resident Creating Document: FRANCIS PRESSLEY RESIDENT Has the PT tested + for MRSA If YES, has PT been informed?: No Medical Necessity Reason Pt with a Central, PICC or Fol: Yes The following are medically ne: Central Line, Sams Catheter Subjective Review of Systems The patient is a 40-year-old female with past medical history of anxiety, UTIs, and kidney stones who presented to [facility] ED for evaluation of cardiac arrest. As reported by EMS/family, patient had cardiac arrest, was asystole 1238 a.m., CPR initiated by family. Patient was initially anxious but was not having any complaints like chest pain or shortness of breath. EMS were on the scene within 5 minutes, CPR continued, patient was given IV fluid, epinephrine x2, became VFib so patient was shocked at 100 joules, Narcan given, became asystole again upon arrival at ER at 0108 hours, blood sugar upon arrival was 43, ROSC obtained at 0112 a.m. Family also reports that patient was depressed for the past 5 years, she has been staying in bed with decreased oral intake, had a fall injury in April resulting in arm and hip fracture. They denied any other significant past medical history. Patient was seen and evaluated in the ED, laboratory data shows WBC 8.8, hemoglobin 6.4, hematocrit 25.0, platelets 260, sodium 151, potassium 6.3, BUN 29, creatinine 2.52, GFR 24, glucose 146, anion gap 28.001, calcium 7.9, lactic acid 21.1 trending down to 15.2, magnesium 4.1, AST 2482, ALT 1430, troponin 2769, BNP 8.48, lipase 31, protein 4.8, albumin 2.7, blood pressure 151/22 trending up to 107/30, heart rate 106, temperature 94.2 F, O2 saturation 97% on ventilator. Head CT showed no acute intracranial abnormality. Patient was started on IV antibiotic regimen vancomycin, please see medication orders section in the computer. On my assessment, patient remains fully intubated, no diaphoresis, no diarrhea, vomiting, no fever. Patient was admitted for further evaluation and medical management. past surgical history; family denies family history: noncontributory past social history: patient lives with the family, denies any smoking, alcohol, drug use 09/06/25: patient seen in ICU. Patient is intubated, on Levophed o, off sedation. Head CT showed diffuse cerebral and cerebellar edema due to anoxic brain injury. neurology following, neurology stated poor prognosis. Kidney functions worsening. Patient's family states before admission patient has seizure-like activity, loss of consciousness which was on and off during the whole day. 09/07/25 40-year-old female in the ICU following cardiopulmonary arrest on 09/04/25, now with severe anoxic brain injury. * Intubated, mechanically ventilated * Off all sedation * No spontaneous movements * No response to pain * No brainstem reflexes: absent corneal, cough, gag, oculocephalic reflexes * Pupils 8 mm, fixed, nonreactive * Family updated todaypoor prognosis discussed, but family chooses FULL CODE and wants everything done Overnight: * Urine output 250 mL total/ 0.15ML/KG/HR * Sams in place, urine [id number] annia * Tube feeds restarted, residuals 15 mL, tolerated * Small bowel movement today * Yamileth-care and sacral wound care performed EEG completed at bedside today for assessment of anoxic injury. Hemodynamics: * On norepinephrine drip for shock Respiratory: * Lungs clear except mild right basal infiltrates Consults: Neurology and Nephrology actively following. 09/08/25 The patient remains critically ill, intubated, mechanically ventilated, and off all sedation since 09/05. Overnight and through today, there continues to be no neurologic improvement. * Mental status unchanged and remains unresponsive/comatose * EEG yesterday inconclusive. Neurology now ordering brain perfusion scan today for brain evaluation * On norepinephrine drip, titrated 8 - 4 mcg/min * CXR today: no major change, persistent bilateral mixed pulmonary opacities and probable small pleural effusions * Oliguria continues * Urine output overnight: 100 mL * Total UO last 24h: 200 mL * Nephrology discontinued Lasix 80 mg BID * Lasix drip started * IR consulted for tunneled dialysis catheter placed today * Plan for hemodialysis/DAIRY HUSBANDRY WORKER likely tomorrow Patient remains in critical multiorgan dysfunction with severe irreversible anoxic brain injury, worsening renal failure requiring DAIRY HUSBANDRY WORKER preparation, hemodynamic instability requiring vasopressors, and persistent respiratory failure on the ventilator. No neurologic recovery. Full code per family request. 09/09/25 The patient remains critically ill, intubated, mechanically ventilated, and off all sedation since 09/05. Overnight and through today, there continues to be no neurologic improvement. * Mental status unchanged and remains unresponsive/comatose * EEG yesterday inconclusive . Neurology now ordering brain perfusion scan today for brain evaluation * Oliguria continues * IR consulted tunneled dialysis catheter today * Plan for hemodialysis/DAIRY HUSBANDRY WORKER likely tomorrow, patient developed b/l upper extremity rash near the right elbow and left antecubital fossa. Patient remains in critical multiorgan dysfunction with severe irreversible anoxic brain injury, worsening renal failure requiring DAIRY HUSBANDRY WORKER preparation, hemodynamic instability requiring vasopressors, and persistent respiratory failure on the ventilator. No neurologic recovery.Full code per family request. 09/10/25 he patient continues to remain critically ill, unresponsive, mechanically ventilated, off all sedation, with severe anoxic brain injury and no signs of neurologic recovery. Family continues to request FULL CODE and continuation of all aggressive medical care. * Urine output: 0.16 mL/kg/hr (severely oliguric) * Yesterday: Hemodialysis with 700 mL ultrafiltration * Today: Plan for 11.5 L ultrafiltration * Tunneled right IJ permacath placed 09/09 * Lasix drip discontinued * Creatinine 5.9 (improving from 7.58) * Iron studies: * Iron 11 (low),TIBC 204 (low),Saturation 5.4% (severely low),Ferritin 132 * EEG: Severe diffuse cerebral dysfunction consistent with severe hypoxic metabolic encephalopathy * Poor prognosis confirmed by neurology * Brain perfusion nuclear scan scheduled today/tomorrow for brain evaluation * Diffuse purpuric rash spreading over upper extremities and lower extremities * Ecchymosis + petechiae + non-blanching lesions * Rash progression after Unasyn possible beta-lactam hypersensitivity * Unasyn discontinued today * Doxycycline started 09/11/25 The patient was examined at bedside this morning. She remains critically ill, mechanically ventilated, unresponsive, and off all sedation. Today's major update is the nuclear brain perfusion scan showing complete absence of intracranial perfusion with hot-nose sign, radiologically consistent with BRAIN , pending final neurologic confirmation. Family was updated about the extremely poor prognosis; however, they insist on FULL CODE and full aggressive care. * When repositioned, HR drops into 30s returned to baseline after stabilization * SpO2: 98% on FiO2 30% * No fever * Urine output: 0.05 mL/kg/hr (severe oliguria) * HD yesterday removed 1.5 L UF * HD planned again tomorrow 09/12/25 The patient was evaluated at bedside today. She remains intubated, mechanically ventilated, and entirely unresponsive with no sedation on board. Neurology officially confirmed BRAIN today based on: * Absent brainstem reflexes * No spontaneous respiration * Nuclear medicine brain perfusion scan showing complete absence of intracranial perfusion * Clinical brain examination performed and documented This was explained thoroughly to the family. Despite clear communication, the family continues to request FULL CODE status and all aggressive measures, including long-term life support and LTAC placement. A medical social worker/Case Management consult has been placed for LTAC disposition per family request. Objective vital signs Vital Sign Date Time Temp Pulse Resp B/P (MAP) Pulse Ox O2 Delivery O2 Flow Rate FiO2 09/12/25 06:45 67 15 97/47 (64) 09/12/25 06:30 100 09/12/25 06:00 30 09/12/25 06:00 Mechanical Ventilator+ 09/12/25 04:01 97.5 97.5 Total Intake and Output 09/11/25 09/11/25 09/12/25 15:00 23:00 07:00 Intake Total 320 ml 576.25 ml 142.00 ml Output Total 1650 ml 50 ml Balance 320 ml -1073.75 ml 92.00 ml medications Current Medications Medications Dose Ordered Sig/Ese Route Start Time Stop Time Status Last Admin Dose Admin Norepinephrine Bitartrate 250 ml @ 3.75 mls/hr Q24H IV 09/04/25 02:00 09/11/25 20:28 3.75 MLS/HR Diagnostic Test (Pha) 1 strip ACHS 09/04/25 07:00 09/12/25 06:39 1 STRIP Insulin Human Regular ACHS SC 09/04/25 07:00 09/11/25 18:13 2 UNITS Dextrose 50 ml UD PRN IV 09/04/25 05:15 Pantoprazole Sodium 40 mg DAILY IV 09/06/25 10:00 09/11/25 10:44 40 MG Enteral Nutritional Formula 1,000 ml 35ML/HR GT 09/06/25 11:00 09/12/25 00:10 1,000 ML Artificial Tears 1 drop Q4HP PRN EACHEYE 09/08/25 18:00 09/08/25 18:34 1 DROP Epoetin Nahun-epbx 10,000 unit MWF@2100 DC 09/09/25 21:00 09/11/25 21:44 10,000 UNIT Multi-Ingredient Ointment 1 applic DAILY TOP 09/10/25 10:00 09/11/25 11:04 1 APPLIC Iron Sucrose 110 ml @ 110 mls/hr DAILY@1200 IV 09/10/25 12:00 09/14/25 12:59 09/11/25 12:04 110 MLS/HR Doxycycline Hyclate 100 ml @ 50 mls/hr Q12H IV 09/10/25 11:00 09/11/25 22:55 50 MLS/HR Examination General Intubated, critically ill, unresponsive. Neuro * GCS 3T * Pupils 8 mm and fixed bilaterally * No corneal, cough, gag, or oculocephalic reflexes * No spontaneous movement * No withdrawal to pain * Eyelid swelling and conjunctival injection * Rigid upper extremities * Nuclear scan consistent with brain HEENT * Scleral edema * Conjunctival injection Cardiovascular * Regular rhythm, pulses palpable with doppler * Hypotensive episodes when repositioned Respiratory * AC/VC; symmetric chest rise * No adventitious sounds GI * Abdomen soft, mildly distended * OG tube in place with minimal secretions * Sams draining minimal urine * Severe oliguria Skin * Diffuse purpuric rash on arms/legs * Patchy petechiae * Ecchymosis in various stages of healing * Sacral scab improving Extremities * Non-pitting edema Lines/Tubes * ETT * OG tube * Left femoral central line * Right IJ tunneled HD catheter * Sams catheter laboratory and microbiology Laboratory Tests 09/12/25 03:40 Test 09/12/25 03:40 Range/Units Serum Glucose 111 H 74-106 mg/dL Microbiology Date/Time Source Procedure Growth Status 09/04/25 23:21 Urine - Sams Port Urine Culture - Final Complete 09/04/25 10:00 Nose MRSA Screen - Final Complete 09/04/25 04:22 Sputum Expectorated Sputum Gram Stain - Final Complete 09/04/25 04:22 Respiratory Culture - Final Staphylococcus aureus Complete 09/04/25 01:40 Blood Blood Culture - Final NO GROWTH AFTER 5 DAYS OF INCUBATION. Complete Problem List/Assessment/Plan Problem List/Assessment/Plan ASSESSMENT /PLAN SYSTEM HODGE NEUROLOGY * Severe anoxic brain injury; extremely poor prognosis Metabolic encephalopathy (secondary to anoxic injury) brain per neurology # Sedation -off sedation # History of anxiety # Seizure like activity ? -neurology on board - neurology stated poor prognosis * Continue neuro checks Q1H * Maintain normothermia * Avoid hypotension/hypoxia * Nuclear brain perfusion scan consistent with brain * EEG: Severe diffuse cerebral dysfunction consistent with severe hypoxic metabolic encephalopathy * Family informed but insist on full support * Maintain current ventilatory support until LTAC placement is arranged CARDIOVASCULAR Postcardiac arrest state (VF arrest - ROSC) . Mixed cardiogenic + septic shock on norepinephrine # heart failure with reduced ejection fraction likely post cardiac arrest # Dyslipidemia # Non ST-elevation myocardial infarction likely type 2 status post cardiac arrest, type 1 not ruled out -head CT -ekg -echo : Conclusion MODERATELY DILATED RV AND IS HYPOKINETIC DYSKINESIS OF IVS RVSP IS 40 MM OF HG AND IS HIGH STUDY CONFIRM RV FAILURE GLOBAL LV HYPOKINESIS LV EF IS 40% AND IS REDUCED NORMAL VALVES NO EFFUSION * Continue norepinephrine to maintain MAP >65 * Monitor for multi-organ shock progression.* Avoid hypotension to preserve brain perfusion * Cardiology involved * Daily EKG * Trend troponins Given anoxic brain injury, the patient is not a candidate for invasive cardiac work-up as per cardiology continue conservative medical management. * Bradycardia episodes with repositioning move gently RESPIRATORY Acute hypoxic respiratory failure requiring mechanical ventilation * AC/VC: RR 15, TV 450, PEEP 5, FiO2 30% * VAP bundle * Daily CXR * Oral care Q4H * SBT contraindicated INFECTIOUS DISEASE MSSA / possible aspiration pneumonia * STOPPED Unasyn today due to allergic rash * continue doxycycline * Continue to monitor rash progression * Monitor sputum, blood, urine cultures * COVID/Flu negative * WBC (mild improvement) HEMATOLOGY Microcytic anemia # severe anemia requiring blood transfusion -1 unit of PRBC transfused Started on IV IRON # coagulopathy likely due to sepsis Monitor Thrombocytopenia (Plt 124) * * Hgb stable at 7.5 , Discontinued Heparin, transfuse only if <7 * Platelets normal * DVT prophylaxis: Heparin held due to anemia * Use SCDs RENAL * KIMI stage 3 on solitary kidney *Dialysis-dependent renal failure * Continue daily evaluation for kidney replacement therapy. * Avoid nephrotoxins * Daily BMP, Mg, Phos hyperkalemia Corrected # hypernatremia -initially corrected with a half NS # metabolic acidosis due to sepsis Monitor ABG # respiratory alkalosis Decrease respiratory rate to 12 # hypomagnesemia Monitor Urology # complicated urinary tract infection -on antibiotics # Punctate nonobstructing right renal calculi. Seen on ultrasound # Left nephrectomy. Seen on ultrasound GI / NUTRITION Shock liver (AST/ALT markedly elevated) now improving * Continue Nepro tube feeds @ 35 mL/hr * Check residuals Q4H * PPI for ulcer prophylaxis * Monitor stool output ENDOCRINE * Insulin ACHS * Maintain BG 380022 SKIN / MSK * Stage 1 sacral ulcer * Wound care following * Reposition Q2H * Beta-lactam hypersensitivity improving Ensure no heparin products (including flushes) STOP beta-lactams (done) Start doxycycline (done) Warm compresses to affected areas Reposition Q2H to reduce pressure contribution NO signs of cellulitis (no warmth) Topical emollients (Aquaphor) to reduce skin breakdown Monitor platelets daily OPHTHALMOLOGY * Conjunctival injection, swollen eyelids * Start Lacri-lube eye drops Q6H LINES / TUBES * ETT (09/04) * OG tube * Left femoral central line (09/04) * Sams catheter Right IJ tunneled dialysis catheter (09/09) * Daily line necessity review PROPHYLAXIS * DVT: SCDs only * GI: Pantoprazole * Ulcer: Q2H turns * VAP: oral care, CHG, HOB elevation SOCIAL WORK / FAMILY SUPPORT * Family updated extensively * Full code requested * Social work available for support * LTAC consult placed today per family request CODE STATUS FULL CODE Family updated today; despite detailed prognosis counseling, they request full aggressive measures and full code total time spent >20 mins CRITICAL CARE TIME 83 minutes of critical care time spent today, excluding procedure time. . DISCUSSION WITH ATTENDING Case reviewed in detail with attending physician Dr Marquez. Management plan jointly agreed upon. including the clinical presentation, diagnostic workup, and comprehensive management plan. The patient's family was present for the discussion and demonstrated understanding of his condition and the proposed plan. Plan discussed with: Spouse, Daughter My Orders My Orders Orders - FRANCIS PRESSLEY RESIDENT Procedure Category Date Status Time Chest Xray 1 View XY 09/12/25 Resulted 04:00 Chest Portable XY 09/11/25 Resulted 23:42 Abg W/ Co-Ox RT 09/12/25 Logged 07:00 Dietary Evaluation Review Comments: 1. nepro 35/hr providing 68g pro, 1487kcal, 611ml free water, meeting 107% energy needs, 80% protein needs 2. Increase amount of Protein support for wound healing when/if pt's kidney function impvoes. F/U and reassess when pt is off vent and PRN. Expected Outcomes/Goals: Adequate nutrition support for being on mechanical ventilation CC Plasma Assessment Blood Product Administration S: 06:05 FRANCIS PRESSLEY RESIDENT Sep 12, 2025 08:04
--- NOTE | 2025-09-12 12:57 | DVHPN2 ---
Progress Note - Dictate Date Seen: Sep 12, 2025 Has the PT tested + for MRSA If YES, has PT been informed?: No Medical Necessity Reason Pt with a Central, PICC or Fol: Yes The following are medically ne: Central Line, Sams Catheter Subjective Patient seen earlier this morning, patient's daughter and additional visitors at bedside vital signs Vital Sign Date Time Temp Pulse Resp B/P (MAP) Pulse Ox O2 Delivery O2 Flow Rate FiO2 09/12/25 10:30 63 15 95/43 (60) 99 09/12/25 09:39 30 09/12/25 08:00 94.5 94.5 09/12/25 08:00 Mechanical Ventilator+ Total Intake and Output 09/11/25 09/11/25 09/12/25 15:00 23:00 07:00 Intake Total 320 ml 576.25 ml 142.00 ml Output Total 1650 ml 50 ml Balance 320 ml -1073.75 ml 92.00 ml medications Current Medications Medications Dose Ordered Sig/Ese Route Start Time Stop Time Status Last Admin Dose Admin Norepinephrine Bitartrate 250 ml @ 3.75 mls/hr Q24H IV 09/04/25 02:00 09/11/25 20:28 3.75 MLS/HR Diagnostic Test (Pha) 1 strip ACHS 09/04/25 07:00 09/12/25 11:24 1 STRIP Insulin Human Regular ACHS SC 09/04/25 07:00 09/12/25 12:06 2 UNITS Dextrose 50 ml UD PRN IV 09/04/25 05:15 Pantoprazole Sodium 40 mg DAILY IV 09/06/25 10:00 09/12/25 10:46 40 MG Enteral Nutritional Formula 1,000 ml 35ML/HR GT 09/06/25 11:00 09/12/25 00:10 1,000 ML Artificial Tears 1 drop Q4HP PRN EACHEYE 09/08/25 18:00 09/08/25 18:34 1 DROP Epoetin Nahun-epbx 10,000 unit MWF@2100 SC 09/09/25 21:00 09/11/25 21:44 10,000 UNIT Multi-Ingredient Ointment 1 applic DAILY TOP 09/10/25 10:00 09/12/25 10:00 1 APPLIC Iron Sucrose 110 ml @ 110 mls/hr DAILY@1200 IV 09/10/25 12:00 09/14/25 12:59 09/12/25 11:43 110 MLS/HR Doxycycline Hyclate 100 ml @ 50 mls/hr Q12H IV 09/10/25 11:00 09/12/25 11:18 50 MLS/HR objective Gen: Intubated, unresponsive lungs: Adequate air exchange cvs: no rub ext: + edema laboratory and microbiology Laboratory Tests 09/12/25 03:40 Test 09/12/25 03:40 Range/Units Serum Glucose 111 H 74-106 mg/dL Assessment/Plan Problem List/Assessment/Plan KIMI, from ATN (baseline not available), due to cardiac arrest requiring hemodialysis Hyperkalemia Metabolic acidosis Status post cardiac arrest, Anoxic encephalopathy Cardiogenic/septic shock NSTEMI Anxiety and depression Plan/recommendation: - metabolic parameters acceptable today. - continue daily evaluation for kidney replacement therapy - discussed plan of care from Nephrology perspective with patient's daughter Dietary Evaluation Review Comments: 1. nepro 35/hr providing 68g pro, 1487kcal, 611ml free water, meeting 107% energy needs, 80% protein needs 2. Increase amount of Protein support for wound healing when/if pt's kidney function impvoes. F/U and reassess when pt is off vent and PRN. Expected Outcomes/Goals: Adequate nutrition support for being on mechanical ventilation Plan discussed with: Daughter CC Plasma Assessment Blood Product Administration S: 06:05 KATHERINE CANTRELL MD Sep 12, 2025 12:56
--- NOTE | 2025-09-12 18:25 | DVHPN2 ---
Progress Note - Dictate Date Seen: Sep 12, 2025 Has the PT tested + for MRSA If YES, has PT been informed?: No Medical Necessity Reason Pt with a Central, PICC or Fol: Yes The following are medically ne: Central Line, Sams Catheter Subjective Ms. Murillo is a 40 years old female with a history of kidney stone, depression, anxiety, she was brought to the [facility] on 09/04/2025 with a chief complaint of cardio pulmonary arrest I have seen and examined the patient, there was no difference on physical examination, her nurses and I have had meeting with her family, including , daughters, sister, was brother and other family members. They understand the patient situation, but they do want to give up easily, the want to give the patient more time, the options including tracheostomy and feeding tube insertion, they are also interested in 2nd opinion Urinalysis, 09/04/2025: WBC: 37, urine leukocyte esterase: Negative UDS, 09/04/2025: Negative Plasma alcohol, 09/04/2025: <3 ABG, 09/10/2025: Metabolic acidosis WBC/HB/PLT/MCV, 09/04/2025: 8.8/6.4/260/79.8 PT/INR/ABG, 09/04/2025: 70.4/1.73/ Na, 09/04/2025: 151, 148, 140 K, 09/04/2025: 6.3, 4.6, 3.2 BUN/CR, 09/04/2025: 30/2.69 09/12/25: 60 4/5.45 GFR, 09/12/2025: Nine TBI/AST/ALT/AP, 09/04/2025: 0.11/2481/4030/74, 0.01/5737/2100/93, 09/12/25: 0.2/148/180/165 Glucose, 09/04/2025: 146, 294, 503 HGB A1c, 09/04/2025: 5 Lactic acid, 09/04/2025: 21.1, or 15.2 Troponin one high sensitivity, 09/04/2025: 2769, 5664, 7574 TG/HDL/LDL/HDL, 09/04/2025: 186/86/41/25 Extremity venous study, 09/04/2025: NO SONOGRAPHIC EVIDENCE FOR DEEP VENOUS THROMBOSIS IN THE BILATERAL LOWER EXTREMITY VEINS Cerebral flow, 09/10/2025: Findings likely representing brain however clinical correlation is needed. Chest x-ray, 09/12/2025: Probable small bilateral pleural effusions with mild bibasilar atelectatic changes. CT head, 09/04/25: No acute intracranial abnormality (I saw evidence suggestive of early diffuse brain edema) CT head 09/05/25: Findings are consistent with severe diffuse cerebral and cerebellar edema possibly representing anoxic brain injury. vital signs Vital Sign Date Time Temp Pulse Resp B/P (MAP) Pulse Ox O2 Delivery O2 Flow Rate FiO2 09/12/25 16:02 85 15 86/37 (53) 99 30 09/12/25 12:00 Mechanical Ventilator+ 09/12/25 12:00 98.1 98.1 Total Intake and Output 09/11/25 09/11/25 09/12/25 15:00 23:00 07:00 Intake Total 320 ml 576.25 ml 142.00 ml Output Total 1650 ml 50 ml Balance 320 ml -1073.75 ml 92.00 ml medications Current Medications Medications Dose Ordered Sig/Ese Route Start Time Stop Time Status Last Admin Dose Admin Norepinephrine Bitartrate 250 ml @ 3.75 mls/hr Q24H IV 09/04/25 02:00 09/11/25 20:28 3.75 MLS/HR Diagnostic Test (Pha) 1 strip ACHS 09/04/25 07:00 09/12/25 11:24 1 STRIP Insulin Human Regular ACHS SC 09/04/25 07:00 09/12/25 12:06 2 UNITS Dextrose 50 ml UD PRN IV 09/04/25 05:15 Pantoprazole Sodium 40 mg DAILY IV 09/06/25 10:00 09/12/25 10:46 40 MG Enteral Nutritional Formula 1,000 ml 35ML/HR GT 09/06/25 11:00 09/12/25 00:10 1,000 ML Artificial Tears 1 drop Q4HP PRN EACHEYE 09/08/25 18:00 09/08/25 18:34 1 DROP Epoetin Nahun-epbx 10,000 unit MWF@2100 SC 09/09/25 21:00 09/11/25 21:44 10,000 UNIT Multi-Ingredient Ointment 1 applic DAILY TOP 09/10/25 10:00 09/12/25 10:00 1 APPLIC Iron Sucrose 110 ml @ 110 mls/hr DAILY@1200 IV 09/10/25 12:00 09/14/25 12:59 09/12/25 11:43 110 MLS/HR Doxycycline Hyclate 100 ml @ 50 mls/hr Q12H IV 09/10/25 11:00 09/12/25 11:18 50 MLS/HR objective The patient is well-nourished and well-developed with no distress. The patient is intubated MENTAL STATUS: Nonresponsive stroke painful stimuli CRANIAL NERVES: Pupils are equal, round, and fixed, 5 mm both eyes. There are no corneal reflexes and doll's eyes phenomenon. No signs of facial weakness. There are no gagging or coughing reflexes SENSATION: No responses to strong pain stimuli. MOTOR: Normal tone in the upper and lower extremity. Normal muscle bulk. No fasciculations. No spontaneous movement. REFLEXES: Deep tendon reflexes are symmetrical. No pathological reflexes. CEREBELLAR/COORDINATION: Deferred GAIT/STATION: deferred. laboratory and microbiology Laboratory Tests 09/12/25 03:40 Test 09/12/25 03:40 Range/Units Serum Glucose 111 H 74-106 mg/dL Problem List Cardiopulmonary arrest Coma/Metabolic/hypoxic encephalopathy Metabolic acidosis Acute respiratory failure Elevated troponin/heart attack Severe anemia Shocked liver Hypernatremia Brain Assessment/Plan Monitoring Supportive treatment ICU care Follow up labs Secondary opinion from Dr. Bermudez Stabilize vitals/pressor drip Respiratory support/vent management Oxygen Antibiotics DVT prophylaxis GI prophylaxis More recommendation per clinical course Poor prognosis for meaningful/overall recovery This medical document was created using an electronic medical record system with [employer] dictation system. Although this document has been carefully reviewed, there may still be some phonetic and typographical errors. These areas are purely typographical due to imperfections of the software programs, and do not reflect any compromise in the patient's medical care. Prognosis Guarded Dietary Evaluation Review Comments: 1. nepro 35/hr providing 68g pro, 1487kcal, 611ml free water, meeting 107% energy needs, 80% protein needs 2. Increase amount of Protein support for wound healing when/if pt's kidney function impvoes. F/U and reassess when pt is off vent and PRN. Expected Outcomes/Goals: Adequate nutrition support for being on mechanical ventilation Plan discussed with: Spouse, Daughter, Other Critical Care Time(min): 50 CC Plasma Assessment Blood Product Administration S: 06:05 ALEXIS DEL ANGEL MD Sep 12, 2025 18:25
--- NOTE | 2025-09-12 21:22 | DVHPN2 ---
Progress Note - Dictate Date Seen: Sep 12, 2025 Has the PT tested + for MRSA If YES, has PT been informed?: No Medical Necessity Reason Pt with a Central, PICC or Fol: Yes The following are medically ne: Central Line, Sams Catheter Subjective Patient was seen and evaluated in follow up in the ICU. Patient is intubated and sedated on ventilator. FiO2 30%. Patient is nonresponsive to stronger painful stimuli, pupils are symmetric, 6mm, fixed. HGB 7.5, HCT 23.2, BUN 64, [employer]ANT 5.45, CA 8.6, AST 148, ALT 180. Chest x-ray shows probable small bilateral pleural effusions with mild bibasilar atelectatic changes. vital signs Vital Sign Date Time Temp Pulse Resp B/P (MAP) Pulse Ox O2 Delivery O2 Flow Rate FiO2 09/12/25 10:30 63 15 95/43 (60) 99 09/12/25 09:39 30 09/12/25 08:00 94.5 94.5 09/12/25 08:00 Mechanical Ventilator+ Total Intake and Output 09/11/25 09/11/25 09/12/25 15:00 23:00 07:00 Intake Total 320 ml 576.25 ml 142.00 ml Output Total 1650 ml 50 ml Balance 320 ml -1073.75 ml 92.00 ml medications Current Medications Medications Dose Ordered Sig/Ese Route Start Time Stop Time Status Last Admin Dose Admin Norepinephrine Bitartrate 250 ml @ 3.75 mls/hr Q24H IV 09/04/25 02:00 09/11/25 20:28 3.75 MLS/HR Diagnostic Test (Pha) 1 strip ACHS 09/04/25 07:00 09/12/25 06:39 1 STRIP Insulin Human Regular ACHS SC 09/04/25 07:00 09/11/25 18:13 2 UNITS Dextrose 50 ml UD PRN IV 09/04/25 05:15 Pantoprazole Sodium 40 mg DAILY IV 09/06/25 10:00 09/12/25 10:46 40 MG Enteral Nutritional Formula 1,000 ml 35ML/HR GT 09/06/25 11:00 09/12/25 00:10 1,000 ML Artificial Tears 1 drop Q4HP PRN EACHEYE 09/08/25 18:00 09/08/25 18:34 1 DROP Epoetin Nahun-epbx 10,000 unit MWF@2100 SC 09/09/25 21:00 09/11/25 21:44 10,000 UNIT Multi-Ingredient Ointment 1 applic DAILY TOP 09/10/25 10:00 09/12/25 10:00 1 APPLIC Iron Sucrose 110 ml @ 110 mls/hr DAILY@1200 IV 09/10/25 12:00 09/14/25 12:59 09/11/25 12:04 110 MLS/HR Doxycycline Hyclate 100 ml @ 50 mls/hr Q12H IV 09/10/25 11:00 09/11/25 22:55 50 MLS/HR objective GENERAL: Ill appearing, intubated on ventilator. EYES: PERRL, EOMI. Anicteric. HENT: Moist mucous membranes. LUNGS: Decreased breath sounds. CARDIOVASCULAR: Regular rate and rhythm. ABDOMEN: Soft, nontender and nondistended. EXTREMITIES: No edema. SKIN: Warm, dry. laboratory and microbiology Laboratory Tests 09/12/25 03:40 Test 09/12/25 03:40 Range/Units Serum Glucose 111 H 74-106 mg/dL Problem List Cardiopulmonary arrest with ROSC. Ventricular fibrillation arrest with defibrillation at 100J. Non ST-elevation myocardial infarction. Acute anemia status post blood transfusion (-FOBT). Acute hypoxic respiratory failure. Likely KIMI on CKD. Left nephrectomy. Shocked Liver. Dyslipidemia, newly diagnosed. Cerebral and cerebellar edema, anoxic brain injury. ? Suspected PE with RV failure and PAH. Assessment/Plan Continued all current supportive medical care. IV antibiotics as ordered. GI prophylactics. Additional plan as per the hospital course. Critical care time of 45 minutes provided to include time spent evaluation of patient at bedside, when appropriate patient/family education for diagnosis, treatment plan, review of pertinent medical information and discussion of care with specialty providers and PCP. Mechanical ventilator parameters, treatment and adjustments have personally been reviewed by me and treatment plan by security inspector has also been reviewed. Dietary Evaluation Review Comments: 1. nepro 35/hr providing 68g pro, 1487kcal, 611ml free water, meeting 107% energy needs, 80% protein needs 2. Increase amount of Protein support for wound healing when/if pt's kidney function impvoes. F/U and reassess when pt is off vent and PRN. Expected Outcomes/Goals: Adequate nutrition support for being on mechanical ventilation Plan discussed with: Other CC Plasma Assessment Blood Product Administration S: 06:05 RISHI SOARES MD Sep 12, 2025 11:19
[2025-09-13] VITALS (95 sets, daily range): BP systolic 85–180; BP diastolic 34–95; PULSE 60–102; RESP 11–17; TEMP 97.5–98.6; O2SAT 92–100
[2025-09-13 04:45] LABS: Hematocrit 21.7 % (36.0-46.0); Mean Corpuscular Hemoglobin 21.8 pg (28.0-32.0); Mean Corpuscular Volume 68.9 fL (80.0-100.0)
[2025-09-13 04:56] LABS: Anion Gap 11 (5-15); BUN/Creatinine Ratio 12.9 (10.0-20.0); Calcium 9.0 mg/dL (8.7-10.4); Carbon Dioxide 29 mmol/L (20-31); Chloride 104 mmol/L (98-107); Potassium 4.5 mmol/L (3.5-5.1); Sodium 144 mmol/L (136-145)
[2025-09-13 05:21] LABS: Alanine Aminotransferase 148 U/L (7-40); Albumin 2.3 g/dL (3.2-4.8); Alkaline Phosphatase 192 U/L (46-116); Bilirubin, Total 0.2 mg/dL (0.2-1.0); Glucose 128 mg/dL (74-106); Total Protein 4.9 g/dL (5.7-8.2)
[2025-09-13 05:22] LABS: Blood Urea Nitrogen 82 mg/dL (9-23)
--- NOTE | 2025-09-13 05:49 | DVH ---
CHEST RADIOGRAPH Indication: Acute hypoxic respiratory failure Technique: Single frontal view of the chest was obtained Comparison: XY CHEST PORTABLE on DOS: 09/12/25, XY CHEST XRAY 1 VIEW on DOS: 09/11/25, XY CHEST XRAY 1 VIEW on DOS: 09/11/25 IMPRESSION: Endotracheal tube, enteric tube, and dialysis catheter appear unchanged in satisfactory position. The lungs appear clear without focal airspace opacity, effusion, or pneumothorax.
[2025-09-13 06:09] LABS: Hemoglobin 6.9 g/dL (12.2-16.2)
[2025-09-13 08:20] LABS: Base Excess 3.8 mmol/L (-2.0-3.0)
[2025-09-13 09:09] LABS: Total Cells Counted 100.0 (100)
[2025-09-13 09:10] LABS: Anisocytosis Slight
[2025-09-13 11:04] LABS: Hematocrit 20.3 % (36.0-46.0)
[2025-09-13 11:07] LABS: Hemoglobin 6.6 g/dL (12.2-16.2)
[2025-09-13] MEDS: SODIUM CHL 0.9% 1000 ML BAG XX ONE (12:00)
--- NOTE | 2025-09-13 13:52 | DVHPN2 ---
Progress Note - Dictate Date Seen: Sep 13, 2025 Has the PT tested + for MRSA If YES, has PT been informed?: No Medical Necessity Reason Pt with a Central, PICC or Fol: Yes The following are medically ne: Central Line, Sams Catheter Subjective Patient's daughter at bedside vital signs Vital Sign Date Time Temp Pulse Resp B/P (MAP) Pulse Ox O2 Delivery O2 Flow Rate FiO2 09/13/25 11:41 76 15 92/40 (57) 100 30 09/13/25 08:00 97.5 97.5 09/13/25 08:00 Mechanical Ventilator+ Total Intake and Output 09/12/25 09/12/25 09/13/25 15:00 23:00 07:00 Intake Total 110 ml 551 ml 384.25 ml Output Total 75 ml 61 ml Balance 110 ml 476 ml 323.25 ml medications Current Medications Medications Dose Ordered Sig/Ese Route Start Time Stop Time Status Last Admin Dose Admin Norepinephrine Bitartrate 250 ml @ 3.75 mls/hr Q24H IV 09/04/25 02:00 09/12/25 23:11 3.75 MLS/HR Diagnostic Test (Pha) 1 strip ACHS 09/04/25 07:00 09/13/25 12:34 1 STRIP Insulin Human Regular ACHS SC 09/04/25 07:00 09/12/25 12:06 2 UNITS Dextrose 50 ml UD PRN IV 09/04/25 05:15 Pantoprazole Sodium 40 mg DAILY IV 09/06/25 10:00 09/13/25 09:30 40 MG Enteral Nutritional Formula 1,000 ml 35ML/HR GT 09/06/25 11:00 09/12/25 00:10 1,000 ML Artificial Tears 1 drop Q4HP PRN EACHEYE 09/08/25 18:00 09/08/25 18:34 1 DROP Epoetin Nahun-epbx 10,000 unit MWF@2100 SC 09/09/25 21:00 09/11/25 21:44 10,000 UNIT Multi-Ingredient Ointment 1 applic DAILY TOP 09/10/25 10:00 09/13/25 09:38 1 APPLIC Iron Sucrose 110 ml @ 110 mls/hr DAILY@1200 IV 09/10/25 12:00 09/14/25 12:59 11/23/25 12:34 110 MLS/HR Doxycycline Hyclate 100 ml @ 50 mls/hr Q12H IV 09/10/25 11:00 09/13/25 12:25 50 MLS/HR objective Gen: Intubated, unresponsive lungs: Adequate air exchange cvs: no rub ext: + edema laboratory and microbiology Laboratory Tests 09/13/25 10:37 09/13/25 03:40 Test 09/13/25 03:40 Range/Units Serum Glucose 128 H 74-106 mg/dL Assessment/Plan Problem List/Assessment/Plan KIMI, from ATN (baseline not available), due to cardiac arrest requiring hemodialysis Hyperkalemia Metabolic acidosis Status post cardiac arrest, Anoxic encephalopathy Cardiogenic/septic shock NSTEMI Anxiety and depression Plan/recommendation: - dialysis for solute removal today - UF as tolerated - no systemic heparin Dietary Evaluation Review Comments: 1. nepro 35/hr providing 68g pro, 1487kcal, 611ml free water, meeting 107% energy needs, 80% protein needs 2. Increase amount of Protein support for wound healing when/if pt's kidney function impvoes. F/U and reassess when pt is off vent and PRN. Expected Outcomes/Goals: Adequate nutrition support for being on mechanical ventilation Plan discussed with: Other CC Plasma Assessment Blood Product Administration S: 06:05 KATHERINE CANTRELL MD Sep 13, 2025 13:52
--- NOTE | 2025-09-13 15:02 | DVHPNRES ---
Progress Note Date Seen: Sep 13, 2025 Resident Creating Document: LAURE NAGY RESIDENT Has the PT tested + for MRSA If YES, has PT been informed?: No Medical Necessity Reason Pt with a Central, PICC or Fol: Yes The following are medically ne: Central Line, Sams Catheter Subjective Review of Systems The patient is a 40-year-old female with past medical history of anxiety, UTIs, and kidney stones who presented to [facility] ED for evaluation of cardiac arrest. As reported by EMS/family, patient had cardiac arrest, was asystole 1238 a.m., CPR initiated by family. Patient was initially anxious but was not having any complaints like chest pain or shortness of breath. EMS were on the scene within 5 minutes, CPR continued, patient was given IV fluid, epinephrine x2, became VFib so patient was shocked at 100 joules, Narcan given, became asystole again upon arrival at ER at 0108 hours, blood sugar upon arrival was 43, ROSC obtained at 0112 a.m. Family also reports that patient was depressed for the past 5 years, she has been staying in bed with decreased oral intake, had a fall injury in April resulting in arm and hip fracture. They denied any other significant past medical history. Patient was seen and evaluated in the ED, laboratory data shows WBC 8.8, hemoglobin 6.4, hematocrit 25.0, platelets 260, sodium 151, potassium 6.3, BUN 29, creatinine 2.52, GFR 24, glucose 146, anion gap 28.001, calcium 7.9, lactic acid 21.1 trending down to 15.2, magnesium 4.1, AST 2482, ALT 1430, troponin 2769, BNP 8.48, lipase 31, protein 4.8, albumin 2.7, blood pressure 151/22 trending up to 107/30, heart rate 106, temperature 94.2 F, O2 saturation 97% on ventilator. Head CT showed no acute intracranial abnormality. Patient was started on IV antibiotic regimen vancomycin, please see medication orders section in the computer. On my assessment, patient remains fully intubated, no diaphoresis, no diarrhea, vomiting, no fever. Patient was admitted for further evaluation and medical management. past surgical history; family denies family history: noncontributory past social history: patient lives with the family, denies any smoking, alcohol, drug use 09/06/25: patient seen in ICU. Patient is intubated, on Levophed o, off sedation. Head CT showed diffuse cerebral and cerebellar edema due to anoxic brain injury. neurology following, neurology stated poor prognosis. Kidney functions worsening. Patient's family states before admission patient has seizure-like activity, loss of consciousness which was on and off during the whole day. 09/07/25 40-year-old female in the ICU following cardiopulmonary arrest on 09/04/25, now with severe anoxic brain injury. * Intubated, mechanically ventilated * Off all sedation * No spontaneous movements * No response to pain * No brainstem reflexes: absent corneal, cough, gag, oculocephalic reflexes * Pupils 8 mm, fixed, nonreactive * Family updated todaypoor prognosis discussed, but family chooses FULL CODE and wants everything done Overnight: * Urine output 250 mL total/ 0.15ML/KG/HR * Sams in place, urine [id number] annia * Tube feeds restarted, residuals 15 mL, tolerated * Small bowel movement today * Yamileth-care and sacral wound care performed EEG completed at bedside today for assessment of anoxic injury. Hemodynamics: * On norepinephrine drip for shock Respiratory: * Lungs clear except mild right basal infiltrates Consults: Neurology and Nephrology actively following. 09/08/25 The patient remains critically ill, intubated, mechanically ventilated, and off all sedation since 09/05. Overnight and through today, there continues to be no neurologic improvement. * Mental status unchanged and remains unresponsive/comatose * EEG yesterday inconclusive. Neurology now ordering brain perfusion scan today for brain evaluation * On norepinephrine drip, titrated 8 - 4 mcg/min * CXR today: no major change, persistent bilateral mixed pulmonary opacities and probable small pleural effusions * Oliguria continues * Urine output overnight: 100 mL * Total UO last 24h: 200 mL * Nephrology discontinued Lasix 80 mg BID * Lasix drip started * IR consulted for tunneled dialysis catheter placed today * Plan for hemodialysis/GREEN CHAIN OPERATOR likely tomorrow Patient remains in critical multiorgan dysfunction with severe irreversible anoxic brain injury, worsening renal failure requiring GREEN CHAIN OPERATOR preparation, hemodynamic instability requiring vasopressors, and persistent respiratory failure on the ventilator. No neurologic recovery. Full code per family request. 09/09/25 The patient remains critically ill, intubated, mechanically ventilated, and off all sedation since 09/05. Overnight and through today, there continues to be no neurologic improvement. * Mental status unchanged and remains unresponsive/comatose * EEG yesterday inconclusive . Neurology now ordering brain perfusion scan today for brain evaluation * Oliguria continues * IR consulted tunneled dialysis catheter today * Plan for hemodialysis/GREEN CHAIN OPERATOR likely tomorrow, patient developed b/l upper extremity rash near the right elbow and left antecubital fossa. Patient remains in critical multiorgan dysfunction with severe irreversible anoxic brain injury, worsening renal failure requiring GREEN CHAIN OPERATOR preparation, hemodynamic instability requiring vasopressors, and persistent respiratory failure on the ventilator. No neurologic recovery.Full code per family request. 09/10/25 he patient continues to remain critically ill, unresponsive, mechanically ventilated, off all sedation, with severe anoxic brain injury and no signs of neurologic recovery. Family continues to request FULL CODE and continuation of all aggressive medical care. * Urine output: 0.16 mL/kg/hr (severely oliguric) * Yesterday: Hemodialysis with 700 mL ultrafiltration * Today: Plan for 11.5 L ultrafiltration * Tunneled right IJ permacath placed 09/09 * Lasix drip discontinued * Creatinine 5.9 (improving from 7.58) * Iron studies: * Iron 11 (low),TIBC 204 (low),Saturation 5.4% (severely low),Ferritin 132 * EEG: Severe diffuse cerebral dysfunction consistent with severe hypoxic metabolic encephalopathy * Poor prognosis confirmed by neurology * Brain perfusion nuclear scan scheduled today/tomorrow for brain evaluation * Diffuse purpuric rash spreading over upper extremities and lower extremities * Ecchymosis + petechiae + non-blanching lesions * Rash progression after Unasyn possible beta-lactam hypersensitivity * Unasyn discontinued today * Doxycycline started 09/11/25 The patient was examined at bedside this morning. She remains critically ill, mechanically ventilated, unresponsive, and off all sedation. Today's major update is the nuclear brain perfusion scan showing complete absence of intracranial perfusion with hot-nose sign, radiologically consistent with BRAIN , pending final neurologic confirmation. Family was updated about the extremely poor prognosis; however, they insist on FULL CODE and full aggressive care. * When repositioned, HR drops into 30s returned to baseline after stabilization * SpO2: 98% on FiO2 30% * No fever * Urine output: 0.05 mL/kg/hr (severe oliguria) * HD yesterday removed 1.5 L UF * HD planned again tomorrow 09/12/25 The patient was evaluated at bedside today. She remains intubated, mechanically ventilated, and entirely unresponsive with no sedation on board. Neurology officially confirmed BRAIN today based on: * Absent brainstem reflexes * No spontaneous respiration * Nuclear medicine brain perfusion scan showing complete absence of intracranial perfusion * Clinical brain examination performed and documented This was explained thoroughly to the family. Despite clear communication, the family continues to request FULL CODE status and all aggressive measures, including long-term life support and LTAC placement. A social human services assistants/Case Management consult has been placed for LTAC disposition per family request. 09/13/2025 The patient was evaluated today in the ICU. She remains intubated, mechanically ventilated, on Levophed, and unresponsive with no sedation. She is afebrile, normocardic, and with MAP maintained on pressors. Labs today showed drop in Hb to 6.9, for which 1 unit of PRBC was transfused. Creatinine and BUN continue to increase, for which she was dialyzed today. Stool sample were also to evaluate any possible bleeding. Brain has been declared by neurology, family wishes for her to remain FULL CODE at this time. Per School Bus Driver, the patient does not qualify for LTAC placement at this time. We will continue to monitor. Objective vital signs Vital Sign Date Time Temp Pulse Resp B/P (MAP) Pulse Ox O2 Delivery O2 Flow Rate FiO2 09/13/25 14:26 82 15 104/47 (66) 100 30 09/13/25 08:00 97.5 97.5 09/13/25 08:00 Mechanical Ventilator+ Total Intake and Output 09/12/25 09/12/25 09/13/25 15:00 23:00 07:00 Intake Total 110 ml 551 ml 384.25 ml Output Total 75 ml 61 ml Balance 110 ml 476 ml 323.25 ml medications Current Medications Medications Dose Ordered Sig/Ese Route Start Time Stop Time Status Last Admin Dose Admin Norepinephrine Bitartrate 250 ml @ 3.75 mls/hr Q24H IV 09/04/25 02:00 09/12/25 23:11 3.75 MLS/HR Diagnostic Test (Pha) 1 strip ACHS 09/04/25 07:00 09/13/25 12:34 1 STRIP Insulin Human Regular ACHS SC 09/04/25 07:00 09/13/25 14:09 2 UNITS Dextrose 50 ml UD PRN IV 09/04/25 05:15 Pantoprazole Sodium 40 mg DAILY IV 09/06/25 10:00 09/13/25 09:30 40 MG Enteral Nutritional Formula 1,000 ml 35ML/HR GT 09/06/25 11:00 09/12/25 00:10 1,000 ML Artificial Tears 1 drop Q4HP PRN EACHEYE 09/08/25 18:00 09/08/25 18:34 1 DROP Epoetin Nahun-epbx 10,000 unit MWF@2100 SC 09/09/25 21:00 09/11/25 21:44 10,000 UNIT Multi-Ingredient Ointment 1 applic DAILY TOP 09/10/25 10:00 09/13/25 09:38 1 APPLIC Iron Sucrose 110 ml @ 110 mls/hr DAILY@1200 IV 09/10/25 12:00 09/14/25 12:59 09/13/25 12:34 110 MLS/HR Doxycycline Hyclate 100 ml @ 50 mls/hr Q12H IV 09/10/25 11:00 09/13/25 12:25 50 MLS/HR Examination General: patient is unresponsive, intubated, mechanically ventilated, on Levophed. HEENT: Normocephalic, atraumatic, dilated unreactive pupils, no extraocular movement, eyelid swelling. conjunctival injection, scleral edema, ET tube in place Respiratory/pulmonary: Bilateral chest expansion, clear lungs bilaterally, vesicular murmurs present in almost all lung cooper, no associated crackles or wheezes, on ventilator with settings of ACVC mode, RR 15, VT 450, FiO2 30%, peep 5 Cardiovascular: Normal RRR, hypotensive when moved Abdomen: Abdomen mildly distended, normal bowel sounds, soft, no grimacing or reaction on palpation Extremities: No deformities, nonpitting edema, pulses are present Skin: diffuse purpuric rash on arms/ legs, patchy petechiae, ecchymosis in various stages of healing, sacral scab. Neurological: GCS 3, pupils 8 mm and fixed bilaterally, no corneal, cough, gag, or oculocephalic reflexes, no spontaneous movement, no withdrawal to pain, rigid upper extremities, nuclear scan consistent with brain laboratory and microbiology Laboratory Tests 09/13/25 10:37 09/13/25 03:40 Test 09/13/25 03:40 Range/Units Serum Glucose 128 H 74-106 mg/dL Microbiology Date/Time Source Procedure Growth Status 09/04/25 23:21 Urine - Sams Port Urine Culture - Final Complete 09/04/25 10:00 Nose MRSA Screen - Final Complete 09/04/25 04:22 Sputum Expectorated Sputum Gram Stain - Final Complete 09/04/25 04:22 Respiratory Culture - Final Staphylococcus aureus Complete 09/04/25 01:40 Blood Blood Culture - Final NO GROWTH AFTER 5 DAYS OF INCUBATION. Complete Problem List/Assessment/Plan Problem List/Assessment/Plan Neurology #Severe anoxic brain injury; extremely poor prognosis Metabolic encephalopathy (secondary to anoxic injury) Brain has been declared by Neurology # History of anxiety # Questionable Seizure like activity -Neurology on board - Neurology stated poor prognosis * Continue neuro checks Q1H * Maintain normothermia * Avoid hypotension/hypoxia * Nuclear brain perfusion scan consistent with brain * EEG: Severe diffuse cerebral dysfunction consistent with severe hypoxic metabolic encephalopathy * Family informed but insist on full support * Maintain current ventilatory support Cardiology #Postcardiac arrest state (VF arrest - ROSC) #Mixed cardiogenic + septic shock on norepinephrine # heart failure with reduced ejection fraction likely post cardiac arrest # Dyslipidemia # Non ST-elevation myocardial infarction likely type 2 status post cardiac arrest, type 1 not ruled out -Head CT -Ekg -Echo : Conclusion MODERATELY DILATED RV AND IS HYPOKINETIC DYSKINESIS OF IVS RVSP IS 40 MM OF HG AND IS HIGH STUDY CONFIRM RV FAILURE GLOBAL LV HYPOKINESIS LV EF IS 40% AND IS REDUCED NORMAL VALVES NO EFFUSION * Continue norepinephrine to maintain MAP >65 * Monitor for multi-organ shock progression.* Avoid hypotension to preserve brain perfusion * Cardiology involved * Daily EKG * Trend troponins Given anoxic brain injury, the patient is not a candidate for invasive cardiac work-up as per cardiology continue conservative medical management. * Bradycardia episodes with repositioning move gently Respiratory #Acute hypoxic respiratory failure requiring mechanical ventilation * AC/VC: RR 15, TV 450, PEEP 5, FiO2 30% * VAP bundle * Daily CXR * Oral care Q4H * SBT contraindicated Infectious Disease #MSSA / possible aspiration pneumonia * STOPPED Unasyn today due to allergic rash * continue doxycycline * Continue to monitor rash progression * Monitor sputum, blood, urine cultures * COVID/Flu negative * WBC (mild improvement) Hematology Microcytic anemia # severe anemia requiring blood transfusion -2 unit of PRBC transfused Started on IV IRON # coagulopathy likely due to sepsis Monitor Thrombocytopenia (Plt 124), resolved * * Hgb stable at 7.5 , Discontinued Heparin, transfuse only if <7 * Platelets normal * DVT prophylaxis: Heparin held due to anemia * Use SCDs Renal * KIMI stage 3 on solitary kidney *Dialysis-dependent renal failure * Continue daily evaluation for kidney replacement therapy. * Avoid nephrotoxins * Daily BMP, Mg, Phos hyperkalemia Corrected # hypernatremia -initially corrected with a half NS # metabolic acidosis due to sepsis Monitor ABG # respiratory alkalosis Decrease respiratory rate to 12 # hypomagnesemia Monitor Urology # complicated urinary tract infection -on antibiotics # Punctate nonobstructing right renal calculi. Seen on ultrasound # Left nephrectomy. Seen on ultrasound GI Shock liver (AST/ALT markedly elevated) now improving * Continue Nepro tube feeds @ 35 mL/hr * Check residuals Q4H * PPI for ulcer prophylaxis * Monitor stool output Endocrine * Insulin ACHS * Maintain BG [id number] Skin * Stage 1 sacral ulcer * Wound care following * Reposition Q2H * Beta-lactam hypersensitivity improving Ensure no heparin products (including flushes) STOP beta-lactams (done) Start doxycycline (done) Warm compresses to affected areas Reposition Q2H to reduce pressure contribution NO signs of cellulitis (no warmth) Topical emollients (Aquaphor) to reduce skin breakdown Monitor platelets daily OPHTHALMOLOGY * Conjunctival injection, swollen eyelids * Start Lacri-lube eye drops Q6H LINES / TUBES * ETT (09/04) * OG tube * Left femoral central line (09/04) * Sams catheter Right IJ tunneled dialysis catheter (09/09) * Daily line necessity review PROPHYLAXIS * DVT: SCDs only * GI: Pantoprazole * Ulcer: Q2H turns * VAP: oral care, CHG, HOB elevation SOCIAL WORK / FAMILY SUPPORT * Family updated extensively * Full code requested * Social work available for support * Patient does not qualify for LTAC due to lack of insurance CODE STATUS FULL CODE Family updated today; despite detailed prognosis counseling, they request full aggressive measures and full code total time spent >20 mins CRITICAL CARE TIME 71 minutes of critical care time spent today, excluding procedure time. Case discussed with Dr. Salcido Plan discussed with: Daughter, Other (Nurse) Dietary Evaluation Review Comments: 1. nepro 35/hr providing 68g pro, 1487kcal, 611ml free water, meeting 107% energy needs, 80% protein needs 2. Increase amount of Protein support for wound healing when/if pt's kidney function impvoes. F/U and reassess when pt is off vent and PRN. Expected Outcomes/Goals: Adequate nutrition support for being on mechanical ventilation CC Plasma Assessment Blood Product Administration S: 06:05 LAURE NAGY RESIDENT Sep 13, 2025 15:02
--- NOTE | 2025-09-13 18:36 | DVHPN2 ---
Progress Note - Dictate Date Seen: Sep 13, 2025 Has the PT tested + for MRSA If YES, has PT been informed?: No Medical Necessity Reason Pt with a Central, PICC or Fol: Yes The following are medically ne: Central Line, Sams Catheter Subjective Patient was seen and evaluated in follow up in the ICU. Patient is intubated and sedated on ventilator. FiO2 30%. Patient's would like for the patient to be transferred to a Sub-Acute facility. HGB 6.6, HCT 20.3, BUN 82, SUPERVISOR SOLDER MAKING 6.34, AST 129, ALT 148. Chest x-ray shows endotracheal tube, enteric tube, and dialysis catheter in satisfactory position. vital signs Vital Sign Date Time Temp Pulse Resp B/P (MAP) Pulse Ox O2 Delivery O2 Flow Rate FiO2 09/13/25 11:41 76 15 92/40 (57) 100 30 09/13/25 08:00 97.5 97.5 09/13/25 08:00 Mechanical Ventilator+ Total Intake and Output 09/12/25 09/12/25 09/13/25 15:00 23:00 07:00 Intake Total 110 ml 551 ml 384.25 ml Output Total 75 ml 61 ml Balance 110 ml 476 ml 323.25 ml medications Current Medications Medications Dose Ordered Sig/Ese Route Start Time Stop Time Status Last Admin Dose Admin Norepinephrine Bitartrate 250 ml @ 3.75 mls/hr Q24H IV 09/04/25 02:00 09/12/25 23:11 3.75 MLS/HR Diagnostic Test (Pha) 1 strip ACHS 09/04/25 07:00 09/13/25 12:34 1 STRIP Insulin Human Regular ACHS SC 09/04/25 07:00 09/12/25 12:06 2 UNITS Dextrose 50 ml UD PRN IV 09/04/25 05:15 Pantoprazole Sodium 40 mg DAILY IV 09/06/25 10:00 09/13/25 09:30 40 MG Enteral Nutritional Formula 1,000 ml 35ML/HR GT 09/06/25 11:00 09/12/25 00:10 1,000 ML Artificial Tears 1 drop Q4HP PRN EACHEYE 09/08/25 18:00 09/08/25 18:34 1 DROP Epoetin Nahun-epbx 10,000 unit MWF@2100 SC 09/09/25 21:00 09/11/25 21:44 10,000 UNIT Multi-Ingredient Ointment 1 applic DAILY TOP 09/10/25 10:00 09/13/25 09:38 1 APPLIC Iron Sucrose 110 ml @ 110 mls/hr DAILY@1200 IV 09/10/25 12:00 09/14/25 12:59 09/13/25 12:34 110 MLS/HR Doxycycline Hyclate 100 ml @ 50 mls/hr Q12H IV 09/10/25 11:00 09/13/25 12:25 50 MLS/HR objective GENERAL: Ill appearing, intubated on ventilator. EYES: PERRL, EOMI. Anicteric. HENT: Moist mucous membranes. LUNGS: Decreased breath sounds. CARDIOVASCULAR: Regular rate and rhythm. ABDOMEN: Soft, nontender and nondistended. EXTREMITIES: No edema. SKIN: Warm, dry. laboratory and microbiology Laboratory Tests 09/13/25 10:37 09/13/25 03:40 Test 09/13/25 03:40 Range/Units Serum Glucose 128 H 74-106 mg/dL Problem List Cardiopulmonary arrest with ROSC. Ventricular fibrillation arrest with defibrillation at 100J. Non ST-elevation myocardial infarction. Acute anemia status post blood transfusion (-FOBT). Acute hypoxic respiratory failure. Likely KIMI on CKD. Left nephrectomy. Shocked Liver. Dyslipidemia, newly diagnosed. Cerebral and cerebellar edema, anoxic brain injury. ? Suspected PE with RV failure and PAH. Assessment/Plan Continued all current supportive medical care. IV antibiotics as ordered. GI prophylactics. Additional plan as per the hospital course. Critical care time of 45 minutes provided to include time spent evaluation of patient at bedside, when appropriate patient/family education for diagnosis, treatment plan, review of pertinent medical information and discussion of care with specialty providers and PCP. Mechanical ventilator parameters, treatment and adjustments have personally been reviewed by me and treatment plan by coat examiner has also been reviewed. Dietary Evaluation Review Comments: 1. nepro 35/hr providing 68g pro, 1487kcal, 611ml free water, meeting 107% energy needs, 80% protein needs 2. Increase amount of Protein support for wound healing when/if pt's kidney function impvoes. F/U and reassess when pt is off vent and PRN. Expected Outcomes/Goals: Adequate nutrition support for being on mechanical ventilation Plan discussed with: Other CC Plasma Assessment Blood Product Administration S: 06:05 RISHI SOARES MD Sep 13, 2025 13:19
--- NOTE | 2025-09-13 21:46 | DVHPN2 ---
Progress Note - Dictate Date Seen: Sep 13, 2025 Has the PT tested + for MRSA If YES, has PT been informed?: No Medical Necessity Reason Pt with a Central, PICC or Fol: Yes The following are medically ne: Central Line, Sams Catheter Subjective Ms. Murillo is a 40 years old female with a history of kidney stone, depression, anxiety, she was brought to the [facility] on 09/04/2025 with a chief complaint of cardio pulmonary arrest I have seen and examined the patient, there was no difference on physical examination, talked to her nurse n She is receiving RBC transfusion for unstable H/H Urinalysis, 09/04/2025: WBC: 37, urine leukocyte esterase: Negative UDS, 09/04/2025: Negative Plasma alcohol, 09/04/2025: <3 ABG, 09/10/2025: Metabolic acidosis WBC/HB/PLT/MCV, 09/04/2025: 8.8/6.4/260/79.8 PT/INR/ABG, 09/04/2025: 70.4/1.73/ Na, 09/04/2025: 151, 148, 140 K, 09/04/2025: 6.3, 4.6, 3.2 BUN/CR, 09/04/2025: 30/2.69 09/12/25: 60 4/5.45 GFR, 09/12/2025: Nine TBI/AST/ALT/AP, 09/04/2025: 0.11/2481/4030/74, 0.01/5737/2100/93, 09/12/25: 0.2/148/180/165 Glucose, 09/04/2025: 146, 294, 503 HGB A1c, 09/04/2025: 5 Lactic acid, 09/04/2025: 21.1, or 15.2 Troponin one high sensitivity, 09/04/2025: 2769, 5664, 7574 TG/HDL/LDL/HDL, 09/04/2025: 186/86/41/25 Extremity venous study, 09/04/2025: NO SONOGRAPHIC EVIDENCE FOR DEEP VENOUS THROMBOSIS IN THE BILATERAL LOWER EXTREMITY VEINS Cerebral flow, 09/10/2025: Findings likely representing brain however clinical correlation is needed. Chest x-ray, 09/12/2025: Probable small bilateral pleural effusions with mild bibasilar atelectatic changes. CT head, 09/04/25: No acute intracranial abnormality (I saw evidence suggestive of early diffuse brain edema) CT head 09/05/25: Findings are consistent with severe diffuse cerebral and cerebellar edema possibly representing anoxic brain injury. vital signs Vital Sign Date Time Temp Pulse Resp B/P (MAP) Pulse Ox O2 Delivery O2 Flow Rate FiO2 09/13/25 21:29 98.4 91 15 124/63 98.4 09/13/25 21:00 97 09/13/25 20:00 30 09/13/25 20:00 Mechanical Ventilator+ Total Intake and Output 09/12/25 09/12/25 09/13/25 15:00 23:00 07:00 Intake Total 110 ml 551 ml 388.00 ml Output Total 75 ml 61 ml Balance 110 ml 476 ml 327.00 ml medications Current Medications Medications Dose Ordered Sig/Ese Route Start Time Stop Time Status Last Admin Dose Admin Norepinephrine Bitartrate 250 ml @ 3.75 mls/hr Q24H IV 09/04/25 02:00 09/12/25 23:11 3.75 MLS/HR Diagnostic Test (Pha) 1 strip ACHS 09/04/25 07:00 09/13/25 17:35 1 STRIP Insulin Human Regular ACHS SC 09/04/25 07:00 09/13/25 17:35 2 UNITS Dextrose 50 ml UD PRN IV 09/04/25 05:15 Pantoprazole Sodium 40 mg DAILY IV 09/06/25 10:00 09/13/25 09:30 40 MG Enteral Nutritional Formula 1,000 ml 35ML/HR GT 09/06/25 11:00 09/12/25 00:10 1,000 ML Artificial Tears 1 drop Q4HP PRN EACHEYE 09/08/25 18:00 09/08/25 18:34 1 DROP Epoetin Nahun-epbx 10,000 unit MWF@2100 SC 09/09/25 21:00 09/11/25 21:44 10,000 UNIT Multi-Ingredient Ointment 1 applic DAILY TOP 09/10/25 10:00 09/13/25 09:38 1 APPLIC Iron Sucrose 110 ml @ 110 mls/hr DAILY@1200 IV 09/10/25 12:00 09/14/25 12:59 09/13/25 12:34 110 MLS/HR Doxycycline Hyclate 100 ml @ 50 mls/hr Q12H IV 09/10/25 11:00 09/13/25 12:25 50 MLS/HR objective The patient is well-nourished and well-developed with no distress. The patient is intubated MENTAL STATUS: Nonresponsive stroke painful stimuli CRANIAL NERVES: Pupils are equal, round, and fixed, 5 mm both eyes. There are no corneal reflexes and doll's eyes phenomenon. No signs of facial weakness. There are no gagging or coughing reflexes SENSATION: No responses to strong pain stimuli. MOTOR: Normal tone in the upper and lower extremity. Normal muscle bulk. No fasciculations. No spontaneous movement. REFLEXES: Deep tendon reflexes are symmetrical. No pathological reflexes. CEREBELLAR/COORDINATION: Deferred GAIT/STATION: deferred. laboratory and microbiology Laboratory Tests 09/13/25 10:37 09/13/25 03:40 Test 09/13/25 03:40 Range/Units Serum Glucose 128 H 74-106 mg/dL Problem List Cardiopulmonary arrest Coma/Metabolic/hypoxic encephalopathy Metabolic acidosis Acute respiratory failure Elevated troponin/heart attack Severe anemia Shocked liver Hypernatremia Brain Assessment/Plan Monitoring Supportive treatment ICU care Follow up labs Secondary opinion from Dr. Bermudez Stabilize vitals/pressor drip Respiratory support/vent management Oxygen Antibiotics DVT prophylaxis GI prophylaxis More recommendation per clinical course Poor prognosis for meaningful/overall recovery This medical document was created using an electronic medical record system with [employer] dictation system. Although this document has been carefully reviewed, there may still be some phonetic and typographical errors. These areas are purely typographical due to imperfections of the software programs, and do not reflect any compromise in the patient's medical care. Prognosis guarded Dietary Evaluation Review Comments: 1. nepro 35/hr providing 68g pro, 1487kcal, 611ml free water, meeting 107% energy needs, 80% protein needs 2. Increase amount of Protein support for wound healing when/if pt's kidney function impvoes. F/U and reassess when pt is off vent and PRN. Expected Outcomes/Goals: Adequate nutrition support for being on mechanical ventilation Plan discussed with: Other CC Plasma Assessment Blood Product Administration S: 06:05 ALEXIS DEL ANGEL MD Sep 13, 2025 21:46
[2025-09-14] VITALS (114 sets, daily range): BP systolic 86–156; BP diastolic 42–73; PULSE 61–88; RESP 12–16; TEMP 98.2–98.8; O2SAT 94–100
[2025-09-14] LABS: Hemoglobin 8.5 g/dL (12.2-16.2)
[2025-09-14 00:03] LABS: Hematocrit 26.5 % (36.0-46.0); Mean Corpuscular Hemoglobin 23.1 pg (28.0-32.0); Mean Corpuscular Volume 71.9 fL (80.0-100.0); Nucleated Red Blood Cells % 0.5 %
--- NOTE | 2025-09-14 03:07 | DVH ---
CHEST RADIOGRAPH Indication: Intubated Technique: Single frontal view of the chest was obtained Comparison: XY CHEST XRAY 1 VIEW on DOS: 09/13/25, XY CHEST PORTABLE on DOS: 09/12/25, XY CHEST XRAY 1 VIEW on DOS: 09/11/25 IMPRESSION: Support lines and tubes appear unchanged in satisfactory in position. Patchy airspace opacity left lung base. Possible small pleural effusion. No pneumothorax.
[2025-09-14 04:38] LABS: Hemoglobin 8.7 g/dL (12.2-16.2); Nucleated Red Blood Cells % 0.5 %
[2025-09-14 04:41] LABS: Hematocrit 27.7 % (36.0-46.0); Mean Corpuscular Hemoglobin 23.2 pg (28.0-32.0); Mean Corpuscular Volume 73.8 fL (80.0-100.0)
[2025-09-14 04:52] LABS: Anion Gap 11 (5-15); BUN/Creatinine Ratio 10.3 (10.0-20.0); Calcium 9.4 mg/dL (8.7-10.4); Carbon Dioxide 29 mmol/L (20-31); Chloride 103 mmol/L (98-107); Magnesium 2.1 mg/dL (1.6-2.6); Potassium 4.6 mmol/L (3.5-5.1); Sodium 143 mmol/L (136-145); Total Protein 6.0 g/dL (5.7-8.2)
[2025-09-14 04:56] LABS: Alanine Aminotransferase 112 U/L (7-40); Albumin 2.9 g/dL (3.2-4.8); Alkaline Phosphatase 191 U/L (46-116); Bilirubin, Total 0.3 mg/dL (0.2-1.0); Blood Urea Nitrogen 41 mg/dL (9-23); Glucose 124 mg/dL (74-106)
[2025-09-14 06:47] LABS: Base Excess 4.7 mmol/L (-2.0-3.0)
--- NOTE | 2025-09-14 09:27 | DVHPNRES ---
Progress Note Date Seen: Sep 14, 2025 Resident Creating Document: FRANCIS PRESSLEY RESIDENT Has the PT tested + for MRSA If YES, has PT been informed?: No Medical Necessity Reason Pt with a Central, PICC or Fol: Yes The following are medically ne: Central Line, Sams Catheter Subjective Review of Systems The patient is a 40-year-old female with past medical history of anxiety, UTIs, and kidney stones who presented to [facility] ED for evaluation of cardiac arrest. As reported by EMS/family, patient had cardiac arrest, was asystole 1238 a.m., CPR initiated by family. Patient was initially anxious but was not having any complaints like chest pain or shortness of breath. EMS were on the scene within 5 minutes, CPR continued, patient was given IV fluid, epinephrine x2, became VFib so patient was shocked at 100 joules, Narcan given, became asystole again upon arrival at ER at 0108 hours, blood sugar upon arrival was 43, ROSC obtained at 0112 a.m. Family also reports that patient was depressed for the past 5 years, she has been staying in bed with decreased oral intake, had a fall injury in April resulting in arm and hip fracture. They denied any other significant past medical history. Patient was seen and evaluated in the ED, laboratory data shows WBC 8.8, hemoglobin 6.4, hematocrit 25.0, platelets 260, sodium 151, potassium 6.3, BUN 29, creatinine 2.52, GFR 24, glucose 146, anion gap 28.001, calcium 7.9, lactic acid 21.1 trending down to 15.2, magnesium 4.1, AST 2482, ALT 1430, troponin 2769, BNP 8.48, lipase 31, protein 4.8, albumin 2.7, blood pressure 151/22 trending up to 107/30, heart rate 106, temperature 94.2 F, O2 saturation 97% on ventilator. Head CT showed no acute intracranial abnormality. Patient was started on IV antibiotic regimen vancomycin, please see medication orders section in the computer. On my assessment, patient remains fully intubated, no diaphoresis, no diarrhea, vomiting, no fever. Patient was admitted for further evaluation and medical management. past surgical history; family denies family history: noncontributory past social history: patient lives with the family, denies any smoking, alcohol, drug use 09/06/25: patient seen in ICU. Patient is intubated, on Levophed o, off sedation. Head CT showed diffuse cerebral and cerebellar edema due to anoxic brain injury. neurology following, neurology stated poor prognosis. Kidney functions worsening. Patient's family states before admission patient has seizure-like activity, loss of consciousness which was on and off during the whole day. 09/07/25 40-year-old female in the ICU following cardiopulmonary arrest on 09/04/25, now with severe anoxic brain injury. * Intubated, mechanically ventilated * Off all sedation * No spontaneous movements * No response to pain * No brainstem reflexes: absent corneal, cough, gag, oculocephalic reflexes * Pupils 8 mm, fixed, nonreactive * Family updated todaypoor prognosis discussed, but family chooses FULL CODE and wants everything done Overnight: * Urine output 250 mL total/ 0.15ML/KG/HR * Sams in place, urine [id number] annia * Tube feeds restarted, residuals 15 mL, tolerated * Small bowel movement today * Yamileth-care and sacral wound care performed EEG completed at bedside today for assessment of anoxic injury. Hemodynamics: * On norepinephrine drip for shock Respiratory: * Lungs clear except mild right basal infiltrates Consults: Neurology and Nephrology actively following. 09/08/25 The patient remains critically ill, intubated, mechanically ventilated, and off all sedation since 09/05. Overnight and through today, there continues to be no neurologic improvement. * Mental status unchanged and remains unresponsive/comatose * EEG yesterday inconclusive. Neurology now ordering brain perfusion scan today for brain evaluation * On norepinephrine drip, titrated 8 - 4 mcg/min * CXR today: no major change, persistent bilateral mixed pulmonary opacities and probable small pleural effusions * Oliguria continues * Urine output overnight: 100 mL * Total UO last 24h: 200 mL * Nephrology discontinued Lasix 80 mg BID * Lasix drip started * IR consulted for tunneled dialysis catheter placed today * Plan for hemodialysis/[employer]ER likely tomorrow Patient remains in critical multiorgan dysfunction with severe irreversible anoxic brain injury, worsening renal failure requiring RICE CLEANING MACHINE TENDER preparation, hemodynamic instability requiring vasopressors, and persistent respiratory failure on the ventilator. No neurologic recovery. Full code per family request. 09/09/25 The patient remains critically ill, intubated, mechanically ventilated, and off all sedation since 09/05. Overnight and through today, there continues to be no neurologic improvement. * Mental status unchanged and remains unresponsive/comatose * EEG yesterday inconclusive . Neurology now ordering brain perfusion scan today for brain evaluation * Oliguria continues * IR consulted tunneled dialysis catheter today * Plan for hemodialysis/[employer]ACHINE T[employer]ER likely tomorrow, patient developed b/l upper extremity rash near the right elbow and left antecubital fossa. Patient remains in critical multiorgan dysfunction with severe irreversible anoxic brain injury, worsening renal failure requiring RICE CLEANING MACHINE TENDER preparation, hemodynamic instability requiring vasopressors, and persistent respiratory failure on the ventilator. No neurologic recovery.Full code per family request. 09/10/25 he patient continues to remain critically ill, unresponsive, mechanically ventilated, off all sedation, with severe anoxic brain injury and no signs of neurologic recovery. Family continues to request FULL CODE and continuation of all aggressive medical care. * Urine output: 0.16 mL/kg/hr (severely oliguric) * Yesterday: Hemodialysis with 700 mL ultrafiltration * Today: Plan for 11.5 L ultrafiltration * Tunneled right IJ permacath placed 09/09 * Lasix drip discontinued * Creatinine 5.9 (improving from 7.58) * Iron studies: * Iron 11 (low),TIBC 204 (low),Saturation 5.4% (severely low),Ferritin 132 * EEG: Severe diffuse cerebral dysfunction consistent with severe hypoxic metabolic encephalopathy * Poor prognosis confirmed by neurology * Brain perfusion nuclear scan scheduled today/tomorrow for brain evaluation * Diffuse purpuric rash spreading over upper extremities and lower extremities * Ecchymosis + petechiae + non-blanching lesions * Rash progression after Unasyn possible beta-lactam hypersensitivity * Unasyn discontinued today * Doxycycline started 09/11/25 The patient was examined at bedside this morning. She remains critically ill, mechanically ventilated, unresponsive, and off all sedation. Today's major update is the nuclear brain perfusion scan showing complete absence of intracranial perfusion with hot-nose sign, radiologically consistent with BRAIN , pending final neurologic confirmation. Family was updated about the extremely poor prognosis; however, they insist on FULL CODE and full aggressive care. * When repositioned, HR drops into 30s returned to baseline after stabilization * SpO2: 98% on FiO2 30% * No fever * Urine output: 0.05 mL/kg/hr (severe oliguria) * HD yesterday removed 1.5 L UF * HD planned again tomorrow 09/12/25 The patient was evaluated at bedside today. She remains intubated, mechanically ventilated, and entirely unresponsive with no sedation on board. Neurology officially confirmed BRAIN today based on: * Absent brainstem reflexes * No spontaneous respiration * Nuclear medicine brain perfusion scan showing complete absence of intracranial perfusion * Clinical brain examination performed and documented This was explained thoroughly to the family. Despite clear communication, the family continues to request FULL CODE status and all aggressive measures, including long-term life support and LTAC placement. A social director/Case Management consult has been placed for LTAC disposition per family request. 09/13/2025 The patient was evaluated today in the ICU. She remains intubated, mechanically ventilated, on Levophed, and unresponsive with no sedation. She is afebrile, normocardic, and with MAP maintained on pressors. Labs today showed drop in Hb to 6.9, for which 1 unit of PRBC was transfused. Creatinine and BUN continue to increase, for which she was dialyzed today. Stool sample were also to evaluate any possible bleeding. Brain has been declared by neurology, family wishes for her to remain FULL CODE at this time. Per Food Safety Field Specialist, the patient does not qualify for LTAC placement at this time. We will continue to monitor. 09/14/25 The patient was evaluated at bedside today. She remains intubated and mechanically ventilated, without sedation, unresponsive, and with previously confirmed brain (absent brain perfusion, absent brainstem reflexes, nuclear perfusion scan positive for brain ). She continues to exhibit no neurologic function. Family met at bedside today. The irreversible prognosis and confirmed brain status were reviewed again. Family is currently discussing goals of care but for now insists the patient remain FULL CODE with continued aggressive care, including ongoing mechanical ventilation and dialysis as needed. Overnight Interval Events Hemoglobin dropped to 6.6 1 unit PRBC transfused post-transfusion Hgb 8.7 Dialysis removed 2 L Rash continues to improve No major ventilatory changes Hemodynamics fluctuating but stable with vasopressors Objective vital signs Vital Sign Date Time Temp Pulse Resp B/P (MAP) Pulse Ox O2 Delivery O2 Flow Rate FiO2 09/14/25 09:18 81 15 109/58 (75) 100 30 09/14/25 07:45 98.8 98.8 09/14/25 06:00 Mechanical Ventilator+ Total Intake and Output 11/09/13/25 09/14/25 15:00 23:00 07:00 Intake Total 143.75 ml 1045.50 ml 340.00 ml Output Total 2090 ml 60 ml Balance 143.75 ml -1044.50 ml 280.00 ml medications Current Medications Medications Dose Ordered Sig/Ese Route Start Time Stop Time Status Last Admin Dose Admin Norepinephrine Bitartrate 250 ml @ 3.75 mls/hr Q24H IV 09/04/25 02:00 09/14/25 07:54 3.75 MLS/HR Diagnostic Test (Pha) 1 strip ACHS 09/04/25 07:00 09/14/25 06:16 1 STRIP Insulin Human Regular ACHS SC 09/04/25 07:00 09/13/25 17:35 2 UNITS Dextrose 50 ml UD PRN IV 09/04/25 05:15 Pantoprazole Sodium 40 mg DAILY IV 09/06/25 10:00 09/13/25 09:30 40 MG Enteral Nutritional Formula 1,000 ml 35ML/HR GT 09/06/25 11:00 09/12/25 00:10 1,000 ML Artificial Tears 1 drop Q4HP PRN EACHEYE 09/08/25 18:00 09/08/25 18:34 1 DROP Epoetin Nahun-epbx 10,000 unit MWF@2100 GA 09/09/25 21:00 09/11/25 21:44 10,000 UNIT Multi-Ingredient Ointment 1 applic DAILY TOP 09/10/25 10:00 09/13/25 09:38 1 APPLIC Iron Sucrose 110 ml @ 110 mls/hr DAILY@1200 IV 09/10/25 12:00 09/14/25 12:59 09/13/25 12:34 110 MLS/HR Doxycycline Hyclate 100 ml @ 50 mls/hr Q12H IV 09/10/25 11:00 09/13/25 23:11 50 MLS/HR Examination General: patient is unresponsive, intubated, mechanically ventilated, on Levophed. HEENT: Normocephalic, atraumatic, dilated unreactive pupils, no extraocular movement, eyelid swelling. conjunctival injection, scleral edema, ET tube in place Respiratory/pulmonary: Bilateral chest expansion, clear lungs bilaterally, vesicular murmurs present in almost all lung cooper, no associated crackles or wheezes, on ventilator with settings of ACVC mode, RR 15, VT 450, FiO2 30%, peep 5 Cardiovascular: Normal RRR, hypotensive when moved Abdomen: Abdomen mildly distended, normal bowel sounds, soft, no grimacing or reaction on palpation Extremities: No deformities, nonpitting edema, pulses are present Skin: diffuse purpuric rash on arms/ legs improving, patchy petechiae, ecchymosis in various stages of healing, sacral scab. Neurological: GCS 3, pupils 8 mm and fixed bilaterally, no corneal, cough, gag, or oculocephalic reflexes, no spontaneous movement, no withdrawal to pain, rigid upper extremities, nuclear scan consistent with brain laboratory and microbiology Laboratory Tests 09/14/25 04:07 Test 09/14/25 04:07 Range/Units Serum Glucose 124 H 74-106 mg/dL Microbiology Date/Time Source Procedure Growth Status 09/04/25 23:21 Urine - Sams Port Urine Culture - Final Complete 09/04/25 10:00 Nose MRSA Screen - Final Complete 09/04/25 04:22 Sputum Expectorated Sputum Gram Stain - Final Complete 09/04/25 04:22 Respiratory Culture - Final Staphylococcus aureus Complete 09/04/25 01:40 Blood Blood Culture - Final NO GROWTH AFTER 5 DAYS OF INCUBATION. Complete Problem List/Assessment/Plan Problem List/Assessment/Plan ASSESSMENT /PLAN SYSTEM HODGE Neurology #Severe anoxic brain injury; extremely poor prognosis Metabolic encephalopathy (secondary to anoxic injury) Brain has been declared by Neurology # History of anxiety # Questionable Seizure like activity -Neurology on board - Neurology stated poor prognosis * Continue neuro checks Q1H * Maintain normothermia * Avoid hypotension/hypoxia * Nuclear brain perfusion scan consistent with brain * EEG: Severe diffuse cerebral dysfunction consistent with severe hypoxic metabolic encephalopathy * Family informed but insist on full support * Maintain current ventilatory support Cardiology #Postcardiac arrest state (VF arrest - ROSC) #Mixed cardiogenic + septic shock on norepinephrine # heart failure with reduced ejection fraction likely post cardiac arrest # Dyslipidemia # Non ST-elevation myocardial infarction likely type 2 status post cardiac arrest, type 1 not ruled out -Head CT -Ekg -Echo : Conclusion MODERATELY DILATED RV AND IS HYPOKINETIC DYSKINESIS OF IVS RVSP IS 40 MM OF HG AND IS HIGH STUDY CONFIRM RV FAILURE GLOBAL LV HYPOKINESIS LV EF IS 40% AND IS REDUCED NORMAL VALVES NO EFFUSION * Continue norepinephrine to maintain MAP >65 * Monitor for multi-organ shock progression.* Avoid hypotension to preserve brain perfusion * Cardiology involved * Daily EKG * Trend troponins Given anoxic brain injury, the patient is not a candidate for invasive cardiac work-up as per cardiology continue conservative medical management. * Bradycardia episodes with repositioning move gently Respiratory #Acute hypoxic respiratory failure requiring mechanical ventilation * AC/VC: RR 15, TV 450, PEEP 5, FiO2 30% * VAP bundle * Daily CXR * Oral care Q4H * SBT contraindicated Infectious Disease #MSSA / possible aspiration pneumonia * STOPPED Unasyn today due to allergic rash * continue doxycycline * Continue to monitor rash progression * Monitor sputum, blood, urine cultures * COVID/Flu negative * WBC (mild improvement) Hematology Microcytic anemia # severe anemia requiring blood transfusion -2 unit of PRBC transfused Started on IV IRON # coagulopathy likely due to sepsis Monitor Thrombocytopenia (Plt 124), resolved * * Hgb stable at 7.5 , Discontinued Heparin, transfuse only if <7 * Platelets normal * DVT prophylaxis: Heparin held due to anemia * Use SCDs Renal * KIMI stage 3 on solitary kidney *Dialysis-dependent renal failure * Continue daily evaluation for kidney replacement therapy. * Avoid nephrotoxins * Daily BMP, Mg, Phos hyperkalemia Corrected # hypernatremia -initially corrected with a half NS # metabolic acidosis due to sepsis Monitor ABG # respiratory alkalosis Decrease respiratory rate to 12 # hypomagnesemia Monitor Urology # complicated urinary tract infection -on antibiotics # Punctate nonobstructing right renal calculi. Seen on ultrasound # Left nephrectomy. Seen on ultrasound GI Shock liver (AST/ALT markedly elevated) now improving * Continue Nepro tube feeds @ 35 mL/hr * Check residuals Q4H * PPI for ulcer prophylaxis * Monitor stool output Endocrine * Insulin ACHS * Maintain BG [id number] Skin * Stage 1 sacral ulcer * Wound care following * Reposition Q2H * Beta-lactam hypersensitivity improving Ensure no heparin products (including flushes) STOP beta-lactams (done) Start doxycycline (done) Warm compresses to affected areas Reposition Q2H to reduce pressure contribution NO signs of cellulitis (no warmth) Topical emollients (Aquaphor) to reduce skin breakdown Monitor platelets daily OPHTHALMOLOGY * Conjunctival injection, swollen eyelids * Start Lacri-lube eye drops Q6H LINES / TUBES * ETT (09/04) * OG tube * Left femoral central line (09/04) * Sams catheter Right IJ tunneled dialysis catheter (09/09) * Daily line necessity review PROPHYLAXIS * DVT: SCDs only * GI: Pantoprazole * Ulcer: Q2H turns * VAP: oral care, CHG, HOB elevation SOCIAL WORK / FAMILY SUPPORT * Family updated extensively * Full code requested * Social work available for support * Patient does not qualify for LTAC due to lack of insurance Family still discussing long-term goals CODE STATUS FULL CODE Family updated today; despite detailed prognosis counseling, they request full aggressive measures and full code total time spent >20 mins CRITICAL CARE TIME 83 minutes of critical care time spent today, excluding procedure time. . DISCUSSION WITH ATTENDING Case reviewed in detail with attending physician Dr Singleton. Management plan jointly agreed upon. including the clinical presentation, diagnostic workup, and comprehensive management plan. The patient's family was present for the discussion and demonstrated understanding of his condition and the proposed plan. Plan discussed with: Spouse, Other (RN) Dietary Evaluation Review Comments: 1. nepro 35/hr providing 68g pro, 1487kcal, 611ml free water, meeting 107% energy needs, 80% protein needs 2. Increase amount of Protein support for wound healing when/if pt's kidney function impvoes. F/U and reassess when pt is off vent and PRN. Expected Outcomes/Goals: Adequate nutrition support for being on mechanical ventilation CC Plasma Assessment Blood Product Administration S: 06:05 Date of Service: Sep 14, 2025 Billing Provider: KEYA SINGLETON MD Common Visit Codes: 02261-[id number] CARE 30-74 MIN, 05464-RINTEITU CARE-EACH +30MIN FRANCIS PRESSLEY RESIDENT Sep 14, 2025 09:27 KEYA SINGLETON MD Sep 15, 2025 12:29
[2025-09-14 10:19] LABS: Hepatitis B Surface Antigen Negative (Negative)
[2025-09-14 10:46] LABS: Hepatitis C Antibody Negative (Negative)
--- NOTE | 2025-09-14 14:49 | DVHPN2 ---
Progress Note Date Seen: Sep 14, 2025 Resident Creating Document: CHIDI BOWERS RESIDENT Has the PT tested + for MRSA If YES, has PT been informed?: No Medical Necessity Reason Pt with a Central, PICC or Fol: Yes The following are medically ne: Central Line, Sams Catheter Subjective Review of Systems Patient seen and examined at the bedside. Unable to obtain ROS due to patient's clinical status currently on mechanical ventilation. Other Systems: Patient seen and examined by myself today on rounds with the medicine resident, I agree with assessment and plan Objective vital signs Vital Sign Date Time Temp Pulse Resp B/P (MAP) Pulse Ox O2 Delivery O2 Flow Rate FiO2 09/14/25 13:10 80 15 107/56 (73) 99 30 09/14/25 11:45 98.6 98.6 09/14/25 06:00 Mechanical Ventilator+ Total Intake and Output 09/13/25 09/13/25 09/14/25 15:00 23:00 07:00 Intake Total 143.75 ml 1045.50 ml 340.00 ml Output Total 2090 ml 60 ml Balance 143.75 ml -1044.50 ml 280.00 ml medications Current Medications Medications Dose Ordered Sig/Ese Route Start Time Stop Time Status Last Admin Dose Admin Norepinephrine Bitartrate 250 ml @ 3.75 mls/hr Q24H IV 09/04/25 02:00 09/14/25 07:54 3.75 MLS/HR Diagnostic Test (Pha) 1 strip ACHS 09/04/25 07:00 09/14/25 11:52 1 STRIP Insulin Human Regular ACHS SC 09/04/25 07:00 09/13/25 17:35 2 UNITS Dextrose 50 ml UD PRN IV 09/04/25 05:15 Pantoprazole Sodium 40 mg DAILY IV 09/06/25 10:00 09/14/25 09:47 40 MG Enteral Nutritional Formula 1,000 ml 35ML/HR GT 09/06/25 11:00 09/12/25 00:10 1,000 ML Artificial Tears 1 drop Q4HP PRN EACHEYE 09/08/25 18:00 09/08/25 18:34 1 DROP Epoetin Nahun-epbx 10,000 unit MWF@2100 SC 09/09/25 21:00 09/11/25 21:44 10,000 UNIT Multi-Ingredient Ointment 1 applic DAILY TOP 09/10/25 10:00 09/14/25 10:04 1 APPLIC Doxycycline Hyclate 100 ml @ 50 mls/hr Q12H IV 09/10/25 11:00 09/14/25 11:08 50 MLS/HR Examination General Appearance: Intubated RASS -3 HEENT: Bilateral pupils are dilated, and nonreactive to the light Respiratory: Clear to auscultation, Normal air movement Cardiovascular: Regular rate, Normal S1, Normal S2, Abdominal: Normal bowel sounds, Soft, Extremities: 2+ edematous all extremities Skin: No rashes, No breakdown, No significant lesion Neuro: Absent gag reflex laboratory and microbiology Laboratory Tests 09/14/25 04:07 Test 09/14/25 04:07 Range/Units Serum Glucose 124 H 74-106 mg/dL Microbiology Date/Time Source Procedure Growth Status 09/04/25 23:21 Urine - Sams Port Urine Culture - Final Complete 09/04/25 10:00 Nose MRSA Screen - Final Complete 09/04/25 04:22 Sputum Expectorated Sputum Gram Stain - Final Complete 09/04/25 04:22 Respiratory Culture - Final Staphylococcus aureus Complete 09/04/25 01:40 Blood Blood Culture - Final NO GROWTH AFTER 5 DAYS OF INCUBATION. Complete Labs and/or images reviewed: Labs reviewed by me, Image(s) reviewed by me Problem List/Assessment/Plan Problem List/Assessment/Plan KIMI, from [facility] (baseline not available), due to cardiac arrest, FeNa > 2% requiring hemodialysis Acute respiratory failure, intubated on ventilator Hyperkalemia Metabolic acidosis Status post cardiac arrest, Anoxic encephalopathy Cardiogenic/septic shock NSTEMI Anxiety and depression Plan/recommendation: Strict I&Os Monitor urinary output ( 60 mL over the night ) Hemodialysis tomorrow Vasopressor per primary team We will evaluate kidney function on daily basis, Avoid nephrotoxic medication Ct head--anoxic encephalopathy EEG/perfusion scan showed anoxic brain injury Poor prognosis Case discussed with the Dr. Barrera Plan discussed with: Spouse, Daughter Dietary Evaluation Review Comments: 1. nepro 35/hr providing 68g pro, 1487kcal, 611ml free water, meeting 107% energy needs, 80% protein needs 2. Increase amount of Protein support for wound healing when/if pt's kidney function impvoes. F/U and reassess when pt is off vent and PRN. Expected Outcomes/Goals: Adequate nutrition support for being on mechanical ventilation CC Plasma Assessment Blood Product Administration S: 06:05 CHIDI BOWERS Sep 14, 2025 14:49 CARISSA BARRERA MD Sep 14, 2025 15:03
[2025-09-14] MEDS: IRON SUCROSE COMPLEX 100 ML IV ONE (16:08)
--- NOTE | 2025-09-14 17:33 | DVHPN2 ---
Progress Note - Dictate Date Seen: Sep 14, 2025 Has the PT tested + for MRSA If YES, has PT been informed?: No Medical Necessity Reason Pt with a Central, PICC or Fol: Yes The following are medically ne: Central Line, Sams Catheter Subjective Patient was seen and evaluated in follow up in the ICU. Patient is intubated and sedated on ventilator. FiO2 30%. Patient is unresponsive. WBC 12.3, HGB 8.7, HCT 27.7, BUN 41, Tv News Director 3.99, AST 156, ALT 112, Alk Phos 191. Chest x-ray shows patchy airspace opacity left lung base. Possible small pleural effusion. No pneumothorax. vital signs Vital Sign Date Time Temp Pulse Resp B/P (MAP) Pulse Ox O2 Delivery O2 Flow Rate FiO2 09/14/25 15:30 66 15 104/49 (67) 100 09/14/25 15:07 30 09/14/25 13:50 Mechanical Ventilator+ 09/14/25 13:45 98.4 98.4 Total Intake and Output 09/13/25 09/13/25 09/14/25 15:00 23:00 07:00 Intake Total 143.75 ml 1045.50 ml 340.00 ml Output Total 2090 ml 60 ml Balance 143.75 ml -1044.50 ml 280.00 ml medications Current Medications Medications Dose Ordered Sig/Ese Route Start Time Stop Time Status Last Admin Dose Admin Norepinephrine Bitartrate 250 ml @ 3.75 mls/hr Q24H IV 09/04/25 02:00 09/14/25 07:54 3.75 MLS/HR Diagnostic Test (Pha) 1 strip ACHS 09/04/25 07:00 09/14/25 11:52 1 STRIP Insulin Human Regular ACHS SC 09/04/25 07:00 09/13/25 17:35 2 UNITS Dextrose 50 ml UD PRN IV 09/04/25 05:15 Pantoprazole Sodium 40 mg DAILY IV 09/06/25 10:00 09/14/25 09:47 40 MG Enteral Nutritional Formula 1,000 ml 35ML/HR GT 09/06/25 11:00 09/12/25 00:10 1,000 ML Artificial Tears 1 drop Q4HP PRN EACHEYE 09/08/25 18:00 09/14/25 16:03 1 DROP Epoetin Nahun-epbx 10,000 unit MWF@2100 SC 09/09/25 21:00 09/11/25 21:44 10,000 UNIT Multi-Ingredient Ointment 1 applic DAILY TOP 09/10/25 10:00 09/14/25 10:04 1 APPLIC Doxycycline Hyclate 100 ml @ 50 mls/hr Q12H IV 09/10/25 11:00 09/14/25 11:08 50 MLS/HR objective GENERAL: Ill appearing, intubated on ventilator. EYES: PERRL, EOMI. Anicteric. HENT: Moist mucous membranes. LUNGS: Decreased breath sounds. CARDIOVASCULAR: Regular rate and rhythm. ABDOMEN: Soft, nontender and nondistended. EXTREMITIES: No edema. SKIN: Warm, dry. laboratory and microbiology Laboratory Tests 09/14/25 04:07 Test 09/14/25 04:07 Range/Units Serum Glucose 124 H 74-106 mg/dL Problem List Cardiopulmonary arrest with ROSC. Ventricular fibrillation arrest with defibrillation at 100J. Non ST-elevation myocardial infarction. Acute anemia status post blood transfusion (-FOBT). Acute hypoxic respiratory failure. Likely KIMI on CKD. Left nephrectomy. Shocked Liver. Dyslipidemia, newly diagnosed. Cerebral and cerebellar edema, anoxic brain injury. ? Suspected PE with RV failure and PAH. Assessment/Plan Continued all current supportive medical care. IV antibiotics as ordered. GI prophylactics. Additional plan as per the hospital course. Critical care time of 45 minutes provided to include time spent evaluation of patient at bedside, when appropriate patient/family education for diagnosis, treatment plan, review of pertinent medical information and discussion of care with specialty providers and PCP. Mechanical ventilator parameters, treatment and adjustments have personally been reviewed by me and treatment plan by welder gas has also been reviewed. Dietary Evaluation Review Comments: 1. nepro 35/hr providing 68g pro, 1487kcal, 611ml free water, meeting 107% energy needs, 80% protein needs 2. Increase amount of Protein support for wound healing when/if pt's kidney function impvoes. F/U and reassess when pt is off vent and PRN. Expected Outcomes/Goals: Adequate nutrition support for being on mechanical ventilation Plan discussed with: Other CC Plasma Assessment Blood Product Administration S: 06:05 RISHI SOARES MD Sep 14, 2025 17:33
[2025-09-15] VITALS (112 sets, daily range): BP systolic 87–160; BP diastolic 20–81; PULSE 60–87; RESP 8–25; TEMP 98.1–99.8; O2SAT 97–100
[2025-09-15 04:29] LABS: Hemoglobin 7.8 g/dL (12.2-16.2)
[2025-09-15 04:32] LABS: Hematocrit 24.6 % (36.0-46.0); Mean Corpuscular Hemoglobin 23.0 pg (28.0-32.0); Mean Corpuscular Volume 72.3 fL (80.0-100.0); Nucleated Red Blood Cells % 0.1 %
--- NOTE | 2025-09-15 04:44 | DVH ---
CHEST RADIOGRAPH Indication: Acute hypoxic respiratory failure Technique: Single frontal view of the chest was obtained COMPARISON: XY CHEST XRAY 1 VIEW on DOS: 09/14/25, XY CHEST XRAY 1 VIEW on DOS: 09/13/25, XY CHEST PORTABLE on DOS: 09/12/25, XY CHEST XRAY 1 VIEW on DOS: 09/11/25, XY CHEST XRAY 1 VIEW on DOS: 09/11/25 FINDINGS: Lines and Tubes: Endotracheal tube, enteric catheter and tunneled right central venous catheter in satisfactory position. Lungs: Increased interstitial prominence. This may represent pulmonary vascular congestion and/or viral pneumonia. Pleura: No effusion.No pneumothorax. Cardiomediastinal contours: Unremarkable Bones: Unremarkable IMPRESSION: Lines and tubes in satisfactory position. Increased interstitial prominence. This may represent pulmonary vascular congestion and/or viral pneumonia.
[2025-09-15 04:50] LABS: Anion Gap 11 (5-15); BUN/Creatinine Ratio 11.6 (10.0-20.0); Calcium 10.0 mg/dL (8.7-10.4); Carbon Dioxide 29 mmol/L (20-31); Chloride 103 mmol/L (98-107); Magnesium 2.1 mg/dL (1.6-2.6); Potassium 4.8 mmol/L (3.5-5.1); Sodium 143 mmol/L (136-145); Total Protein 6.0 g/dL (5.7-8.2)
[2025-09-15 04:59] LABS: Alkaline Phosphatase 198 U/L (46-116); Blood Urea Nitrogen 62 mg/dL (9-23); Glucose 107 mg/dL (74-106)
[2025-09-15 05:00] LABS: Alanine Aminotransferase 93 U/L (7-40); Albumin 2.8 g/dL (3.2-4.8); Bilirubin, Total 0.2 mg/dL (0.2-1.0)
[2025-09-15] MEDS: SODIUM CHL 0.9% 1000 ML BAG XX ONE (07:00)
[2025-09-15] MEDS: ALBUMIN 25% 100 ML IV SCH (07:59)
--- NOTE | 2025-09-15 09:48 | DVHPNRES ---
Progress Note Date Seen: Sep 15, 2025 Resident Creating Document: FRANCIS PRESSLEY RESIDENT Has the PT tested + for MRSA If YES, has PT been informed?: No Medical Necessity Reason Pt with a Central, PICC or Fol: Yes The following are medically ne: Central Line, Sams Catheter Subjective Review of Systems The patient is a 40-year-old female with past medical history of anxiety, UTIs, and kidney stones who presented to [facility] ED for evaluation of cardiac arrest. As reported by EMS/family, patient had cardiac arrest, was asystole 1238 a.m., CPR initiated by family. Patient was initially anxious but was not having any complaints like chest pain or shortness of breath. EMS were on the scene within 5 minutes, CPR continued, patient was given IV fluid, epinephrine x2, became VFib so patient was shocked at 100 joules, Narcan given, became asystole again upon arrival at ER at 0108 hours, blood sugar upon arrival was 43, ROSC obtained at 0112 a.m. Family also reports that patient was depressed for the past 5 years, she has been staying in bed with decreased oral intake, had a fall injury in April resulting in arm and hip fracture. They denied any other significant past medical history. Patient was seen and evaluated in the ED, laboratory data shows WBC 8.8, hemoglobin 6.4, hematocrit 25.0, platelets 260, sodium 151, potassium 6.3, BUN 29, creatinine 2.52, GFR 24, glucose 146, anion gap 28.001, calcium 7.9, lactic acid 21.1 trending down to 15.2, magnesium 4.1, AST 2482, ALT 1430, troponin 2769, BNP 8.48, lipase 31, protein 4.8, albumin 2.7, blood pressure 151/22 trending up to 107/30, heart rate 106, temperature 94.2 F, O2 saturation 97% on ventilator. Head CT showed no acute intracranial abnormality. Patient was started on IV antibiotic regimen vancomycin, please see medication orders section in the computer. On my assessment, patient remains fully intubated, no diaphoresis, no diarrhea, vomiting, no fever. Patient was admitted for further evaluation and medical management. past surgical history; family denies family history: noncontributory past social history: patient lives with the family, denies any smoking, alcohol, drug use 09/06/25: patient seen in ICU. Patient is intubated, on Levophed o, off sedation. Head CT showed diffuse cerebral and cerebellar edema due to anoxic brain injury. neurology following, neurology stated poor prognosis. Kidney functions worsening. Patient's family states before admission patient has seizure-like activity, loss of consciousness which was on and off during the whole day. 09/07/25 40-year-old female in the ICU following cardiopulmonary arrest on 09/04/25, now with severe anoxic brain injury. * Intubated, mechanically ventilated * Off all sedation * No spontaneous movements * No response to pain * No brainstem reflexes: absent corneal, cough, gag, oculocephalic reflexes * Pupils 8 mm, fixed, nonreactive * Family updated todaypoor prognosis discussed, but family chooses FULL CODE and wants everything done Overnight: * Urine output 250 mL total/ 0.15ML/KG/HR * Sams in place, urine [id number] annia * Tube feeds restarted, residuals 15 mL, tolerated * Small bowel movement today * Yamileth-care and sacral wound care performed EEG completed at bedside today for assessment of anoxic injury. Hemodynamics: * On norepinephrine drip for shock Respiratory: * Lungs clear except mild right basal infiltrates Consults: Neurology and Nephrology actively following. 09/08/25 The patient remains critically ill, intubated, mechanically ventilated, and off all sedation since 09/05. Overnight and through today, there continues to be no neurologic improvement. * Mental status unchanged and remains unresponsive/comatose * EEG yesterday inconclusive. Neurology now ordering brain perfusion scan today for brain evaluation * On norepinephrine drip, titrated 8 - 4 mcg/min * CXR today: no major change, persistent bilateral mixed pulmonary opacities and probable small pleural effusions * Oliguria continues * Urine output overnight: 100 mL * Total UO last 24h: 200 mL * Nephrology discontinued Lasix 80 mg BID * Lasix drip started * IR consulted for tunneled dialysis catheter placed today * Plan for hemodialysis/[facility] likely tomorrow Patient remains in critical multiorgan dysfunction with severe irreversible anoxic brain injury, worsening renal failure requiring 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 No neurologic recovery. Full code per family request. 09/09/25 The patient remains critically ill, intubated, mechanically ventilated, and off all sedation since 09/05. Overnight and through today, there continues to be no neurologic improvement. * Mental status unchanged and remains unresponsive/comatose * EEG yesterday inconclusive . Neurology now ordering brain perfusion scan today for brain evaluation * Oliguria continues * IR consulted tunneled dialysis catheter today * Plan for hemodialysis/[facility] likely tomorrow, patient developed b/l upper extremity rash near the right elbow and left antecubital fossa. Patient remains in critical multiorgan dysfunction with severe irreversible anoxic brain injury, worsening renal failure requiring 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 No neurologic recovery.Full code per family request. 09/10/25 he patient continues to remain critically ill, unresponsive, mechanically ventilated, off all sedation, with severe anoxic brain injury and no signs of neurologic recovery. Family continues to request FULL CODE and continuation of all aggressive medical care. * Urine output: 0.16 mL/kg/hr (severely oliguric) * Yesterday: Hemodialysis with 700 mL ultrafiltration * Today: Plan for 11.5 L ultrafiltration * Tunneled right IJ permacath placed 09/09 * Lasix drip discontinued * Creatinine 5.9 (improving from 7.58) * Iron studies: * Iron 11 (low),TIBC 204 (low),Saturation 5.4% (severely low),Ferritin 132 * EEG: Severe diffuse cerebral dysfunction consistent with severe hypoxic metabolic encephalopathy * Poor prognosis confirmed by neurology * Brain perfusion nuclear scan scheduled today/tomorrow for brain evaluation * Diffuse purpuric rash spreading over upper extremities and lower extremities * Ecchymosis + petechiae + non-blanching lesions * Rash progression after Unasyn possible beta-lactam hypersensitivity * Unasyn discontinued today * Doxycycline started 09/11/25 The patient was examined at bedside this morning. She remains critically ill, mechanically ventilated, unresponsive, and off all sedation. Today's major update is the nuclear brain perfusion scan showing complete absence of intracranial perfusion with hot-nose sign, radiologically consistent with BRAIN , pending final neurologic confirmation. Family was updated about the extremely poor prognosis; however, they insist on FULL CODE and full aggressive care. * When repositioned, HR drops into 30s returned to baseline after stabilization * SpO2: 98% on FiO2 30% * No fever * Urine output: 0.05 mL/kg/hr (severe oliguria) * HD yesterday removed 1.5 L UF * HD planned again tomorrow 09/12/25 The patient was evaluated at bedside today. She remains intubated, mechanically ventilated, and entirely unresponsive with no sedation on board. Neurology officially confirmed BRAIN today based on: * Absent brainstem reflexes * No spontaneous respiration * Nuclear medicine brain perfusion scan showing complete absence of intracranial perfusion * Clinical brain examination performed and documented This was explained thoroughly to the family. Despite clear communication, the family continues to request FULL CODE status and all aggressive measures, including long-term life support and LTAC placement. A social group worker/Case Management consult has been placed for LTAC disposition per family request. 09/13/2025 The patient was evaluated today in the ICU. She remains intubated, mechanically ventilated, on Levophed, and unresponsive with no sedation. She is afebrile, normocardic, and with MAP maintained on pressors. Labs today showed drop in Hb to 6.9, for which 1 unit of PRBC was transfused. Creatinine and BUN continue to increase, for which she was dialyzed today. Stool sample were also to evaluate any possible bleeding. Brain has been declared by neurology, family wishes for her to remain FULL CODE at this time. Per Office Agent, the patient does not qualify for LTAC placement at this time. We will continue to monitor. 09/14/25 The patient was evaluated at bedside today. She remains intubated and mechanically ventilated, without sedation, unresponsive, and with previously confirmed brain (absent brain perfusion, absent brainstem reflexes, nuclear perfusion scan positive for brain ). She continues to exhibit no neurologic function. Family met at bedside today. The irreversible prognosis and confirmed brain status were reviewed again. Family is currently discussing goals of care but for now insists the patient remain FULL CODE with continued aggressive care, including ongoing mechanical ventilation and dialysis as needed. Overnight Interval Events Hemoglobin dropped to 6.6 1 unit PRBC transfused post-transfusion Hgb 8.7 Dialysis removed 2 L Rash continues to improve No major ventilatory changes Hemodynamics fluctuating but stable with vasopressors 09/15/25 The patient was evaluated at bedside today. She remains intubated, mechanically ventilated, unresponsive without sedation. Neurologically, she continues to exhibit no cerebral or brainstem activity, consistent with previously documented brain on nuclear medicine perfusion study. Important new finding today: Despite clinical brain , the patient demonstrates spinal reflex activity, including: * Muscle twitching in upper extremities * Brief fast fasciculatory movements upon touch * Reflexive limb motion during turning and repositioning These findings are consistent with spinal reflex arcs, not cortical activity, and do not contradict brain physiology. Family has not yet decided regarding withdrawal of care and continues to insist on full aggressive measures. A second neurologist is scheduled for repeat confirmatory brain- exam today. Hemodialysis ongoing, with UF goal 1 L. Rash that developed after Unasyn is improving.Thrombocytopenia worsened (platelets 23,000). Hemoglobin dropped again. Objective vital signs Vital Sign Date Time Temp Pulse Resp B/P (MAP) Pulse Ox O2 Delivery O2 Flow Rate FiO2 09/15/25 08:51 116/63 09/15/25 08:19 83 15 99 30 09/15/25 08:00 Mechanical Ventilator+ 09/15/25 04:00 98.6 98.6 Total Intake and Output 09/14/25 09/14/25 09/15/25 15:00 23:00 07:00 Intake Total 30.00 ml 530.00 ml 465.00 ml Output Total 75 ml 150 ml Balance 30.00 ml 455.00 ml 315.00 ml medications Current Medications Medications Dose Ordered Sig/Ese Route Start Time Stop Time Status Last Admin Dose Admin Diagnostic Test (Pha) 1 strip ACHS 09/04/25 07:00 09/15/25 05:55 1 STRIP Insulin Human Regular ACHS SC 09/04/25 07:00 09/13/25 17:35 2 UNITS Dextrose 50 ml UD PRN IV 09/04/25 05:15 Pantoprazole Sodium 40 mg DAILY IV 09/06/25 10:00 09/14/25 09:47 40 MG Enteral Nutritional Formula 1,000 ml 35ML/HR GT 09/06/25 11:00 09/15/25 08:32 1,000 ML Artificial Tears 1 drop Q4HP PRN EACHEYE 09/08/25 18:00 09/15/25 02:47 1 DROP Epoetin Nahun-epbx 10,000 unit MWF@2100 SC 09/09/25 21:00 09/14/25 21:02 10,000 UNIT Multi-Ingredient Ointment 1 applic DAILY TOP 09/10/25 10:00 09/14/25 10:04 1 APPLIC Doxycycline Hyclate 100 ml @ 50 mls/hr Q12H IV 09/10/25 11:00 09/14/25 22:21 50 MLS/HR Albumin Human 100 ml @ 100 mls/hr Q1HR IV 09/15/25 08:00 09/15/25 09:59 09/15/25 07:59 100 MLS/HR Norepinephrine Bitartrate 250 ml @ 3.75 mls/hr Q24H IV 09/15/25 08:45 Examination General Intubated, ventilator-dependent, no sedation, no spontaneous movement. Neurological * GCS: 3T * Pupils fixed, dilated * No corneal, cough, gag reflex * No response to painful stimuli * Spinal reflexes present: limb twitching with touch and repositioning Respiratory Even chest rise, ventilated breath sounds. Cardiovascular Regular rhythm; BP labile; pulses palpable. GI Soft abdomen; tube feeding tolerated. Sams catheter in place, low urine output. Skin * Rash improving * Sacral scab healing * No new open wounds Extremities Warm; mild dependent edema. laboratory and microbiology Laboratory Tests 09/15/25 03:51 Test 09/15/25 03:51 Range/Units Serum Glucose 107 H 74-106 mg/dL Microbiology Date/Time Source Procedure Growth Status 09/04/25 23:21 Urine - Sams Port Urine Culture - Final Complete 09/04/25 10:00 Nose MRSA Screen - Final Complete 09/04/25 04:22 Sputum Expectorated Sputum Gram Stain - Final Complete 09/04/25 04:22 Respiratory Culture - Final Staphylococcus aureus Complete 09/04/25 01:40 Blood Blood Culture - Final NO GROWTH AFTER 5 DAYS OF INCUBATION. Complete Problem List/Assessment/Plan Problem List/Assessment/Plan ASSESSMENT /PLAN SYSTEM HODGE Neurology #Severe anoxic brain injury; extremely poor prognosis Metabolic encephalopathy (secondary to anoxic injury) Brain has been declared by Neurology, await second opinion # History of anxiety # Questionable Seizure like activity -Neurology on board - Neurology stated poor prognosis * Continue neuro checks Q1H * Maintain normothermia * Avoid hypotension/hypoxia * Nuclear brain perfusion scan consistent with brain * EEG: Severe diffuse cerebral dysfunction consistent with severe hypoxic metabolic encephalopathy * Family informed but insist on full support * Second neurologist exam pending for brain confirmation * Maintain current ventilatory support Cardiology #Postcardiac arrest state (VF arrest - ROSC) #Mixed cardiogenic + septic shock on norepinephrine # heart failure with reduced ejection fraction likely post cardiac arrest # Dyslipidemia # Non ST-elevation myocardial infarction likely type 2 status post cardiac arrest, type 1 not ruled out -Head CT -Ekg -Echo : Conclusion MODERATELY DILATED RV AND IS HYPOKINETIC DYSKINESIS OF IVS RVSP IS 40 MM OF HG AND IS HIGH STUDY CONFIRM RV FAILURE GLOBAL LV HYPOKINESIS LV EF IS 40% AND IS REDUCED NORMAL VALVES NO EFFUSION * Continue norepinephrine to maintain MAP >65 * Monitor for multi-organ shock progression.* Avoid hypotension to preserve brain perfusion * Cardiology involved * Daily EKG * Trend troponins Given anoxic brain injury, the patient is not a candidate for invasive cardiac work-up as per cardiology continue conservative medical management. * Bradycardia episodes with repositioning move gently Respiratory #Acute hypoxic respiratory failure requiring mechanical ventilation * AC/VC: RR 15, TV 450, PEEP 5, FiO2 30% * VAP bundle * Daily CXR * Oral care Q4H * SBT contraindicated Infectious Disease #MSSA / possible aspiration pneumonia * STOPPED Unasyn today due to allergic rash * continue doxycycline * Continue to monitor rash progression * Monitor sputum, blood, urine cultures * COVID/Flu negative * WBC (mild improvement) Hematology Microcytic anemia # severe anemia requiring blood transfusion -2 unit of PRBC transfused Started on IV IRON # coagulopathy likely due to sepsis Monitor Thrombocytopenia (Plt 124), resolved * * Hgb stable at 7.5 , Discontinued Heparin, transfuse only if <7 * Platelets normal * DVT prophylaxis: Heparin held due to anemia * Use SCDs Renal * KIMI stage 3 on solitary kidney *Dialysis-dependent renal failure * Continue daily evaluation for kidney replacement therapy. * Avoid nephrotoxins * Daily BMP, Mg, Phos hyperkalemia Corrected # hypernatremia -initially corrected with a half NS # metabolic acidosis due to sepsis Monitor ABG # respiratory alkalosis Decrease respiratory rate to 12 # hypomagnesemia Monitor Urology # complicated urinary tract infection -on antibiotics # Punctate nonobstructing right renal calculi. Seen on ultrasound # Left nephrectomy. Seen on ultrasound GI Shock liver (AST/ALT markedly elevated) now improving * Continue Nepro tube feeds @ 35 mL/hr * Check residuals Q4H * PPI for ulcer prophylaxis * Monitor stool output Endocrine * Insulin ACHS * Maintain BG 202809 Skin * Stage 1 sacral ulcer * Wound care following * Reposition Q2H * Beta-lactam hypersensitivity improving Ensure no heparin products (including flushes) STOP beta-lactams (done) Start doxycycline (done) Warm compresses to affected areas Reposition Q2H to reduce pressure contribution NO signs of cellulitis (no warmth) Topical emollients (Aquaphor) to reduce skin breakdown Monitor platelets daily OPHTHALMOLOGY * Conjunctival injection, swollen eyelids * Start Lacri-lube eye drops Q6H LINES / TUBES * ETT (09/04) * OG tube * Left femoral central line (09/04) * Sams catheter Right IJ tunneled dialysis catheter (09/09) * Daily line necessity review PROPHYLAXIS * DVT: SCDs only * GI: Pantoprazole * Ulcer: Q2H turns * VAP: oral care, CHG, HOB elevation SOCIAL WORK / FAMILY SUPPORT * Family updated extensively * Full code requested * Social work available for support * Patient does not qualify for LTAC due to lack of insurance * Second neurologist exam pending for brain confirmation Family still discussing long-term goals CODE STATUS FULL CODE Family updated today; despite detailed prognosis counseling, they request full aggressive measures and full code total time spent >20 mins CRITICAL CARE TIME 83 minutes of critical care time spent today, excluding procedure time. . DISCUSSION WITH ATTENDING Case reviewed in detail with attending physician Dr Singleton. Management plan jointly agreed upon. including the clinical presentation, diagnostic workup, and comprehensive management plan. The patient's family was present for the discussion and demonstrated understanding of his condition and the proposed plan. Plan discussed with: Spouse, Daughter My Orders My Orders Orders - FRANCIS PRESSLEY RESIDENT Procedure Category Date Status Time Chest Xray 1 View XY 09/15/25 Resulted 04:00 Abg W/ Co-Ox RT 09/15/25 Logged 04:00 Norepinephrine 8 PHA 09/15/25 In Process Mg/250ml Kit 08:45 Dietary Evaluation Review Comments: 1. nepro 35/hr providing 68g pro, 1487kcal, 611ml free water, meeting 107% energy needs, 80% protein needs 2. Increase amount of Protein support for wound healing when/if pt's kidney function impvoes. F/U and reassess when pt is off vent and PRN. Expected Outcomes/Goals: Adequate nutrition support for being on mechanical ventilation CC Plasma Assessment Blood Product Administration S: 06:05 Date of Service: Sep 15, 2025 Billing Provider: KEYA SINGLETON MD Common Visit Codes: 45386-DIHCRMTM CARE 30-74 MIN, 40879-[id number] CARE-EACH +30MIN FRANCIS PRESSLEY Sep 15, 2025 09:48 KEYA SINGLETON MD Sep 16, 2025 14:39
[2025-09-15 11:17] LABS: Base Excess 9.1 mmol/L (-2.0-3.0)
[2025-09-15] MEDS: NOREPINEPHRINE 8 MG/250ML KIT 250 ML IV SCH (11:40)
--- NOTE | 2025-09-15 14:41 | DVHPN2 ---
Progress Note Date Seen: Sep 15, 2025 Resident Creating Document: CHIDI BOWERS RESIDENT Has the PT tested + for MRSA If YES, has PT been informed?: No Medical Necessity Reason Pt with a Central, PICC or Fol: Yes The following are medically ne: Central Line, Sams Catheter Subjective Review of Systems Patient seen and examined at the bedside. Unable to obtain ROS due to patient's clinical status currently on mechanical ventilation. Objective vital signs Vital Sign Date Time Temp Pulse Resp B/P (MAP) Pulse Ox O2 Delivery O2 Flow Rate FiO2 09/15/25 14:04 77 15 128/69 (88) 99 30 09/15/25 08:00 Mechanical Ventilator+ 09/15/25 04:00 98.6 98.6 Total Intake and Output 09/14/25 09/14/25 09/15/25 15:00 23:00 07:00 Intake Total 30.00 ml 530.00 ml 465.00 ml Output Total 75 ml 150 ml Balance 30.00 ml 455.00 ml 315.00 ml medications Current Medications Medications Dose Ordered Sig/Ese Route Start Time Stop Time Status Last Admin Dose Admin Diagnostic Test (Pha) 1 strip ACHS 09/04/25 07:00 09/15/25 11:51 1 STRIP Insulin Human Regular ACHS SC 09/04/25 07:00 09/13/25 17:35 2 UNITS Dextrose 50 ml UD PRN IV 09/04/25 05:15 Pantoprazole Sodium 40 mg DAILY IV 09/06/25 10:00 09/15/25 10:53 40 MG Enteral Nutritional Formula 1,000 ml 35ML/HR GT 09/06/25 11:00 09/15/25 08:32 1,000 ML Artificial Tears 1 drop Q4HP PRN EACHEYE 09/08/25 18:00 09/15/25 02:47 1 DROP Epoetin Nahun-epbx 10,000 unit MWF@2100 SC 09/09/25 21:00 09/14/25 21:02 10,000 UNIT Multi-Ingredient Ointment 1 applic DAILY TOP 09/10/25 10:00 09/15/25 10:56 1 APPLIC Doxycycline Hyclate 100 ml @ 50 mls/hr Q12H IV 09/10/25 11:00 09/15/25 10:56 50 MLS/HR Norepinephrine Bitartrate 250 ml @ 3.75 mls/hr Q24H IV 09/15/25 08:45 09/15/25 11:40 3.75 MLS/HR Examination General Appearance: Intubated RASS -3 HEENT: Bilateral pupils are dilated, and nonreactive to the light Respiratory: Clear to auscultation, Normal air movement Cardiovascular: Regular rate, Normal S1, Normal S2, Abdominal: Normal bowel sounds, Soft, Extremities: 2+ edematous all extremities Skin: No rashes, No breakdown, No significant lesion Neuro: Absent gag reflex laboratory and microbiology Laboratory Tests 09/15/25 03:51 Test 09/15/25 03:51 Range/Units Serum Glucose 107 H 74-106 mg/dL Microbiology Date/Time Source Procedure Growth Status 09/04/25 23:21 Urine - Sams Port Urine Culture - Final Complete 09/04/25 10:00 Nose MRSA Screen - Final Complete 09/04/25 04:22 Sputum Expectorated Sputum Gram Stain - Final Complete 09/04/25 04:22 Respiratory Culture - Final Staphylococcus aureus Complete 09/04/25 01:40 Blood Blood Culture - Final NO GROWTH AFTER 5 DAYS OF INCUBATION. Complete Labs and/or images reviewed: Labs reviewed by me, Image(s) reviewed by me Problem List/Assessment/Plan Problem List/Assessment/Plan KIMI, from ATN (baseline not available), due to cardiac arrest, FeNa > 2% requiring hemodialysis Acute respiratory failure, intubated on ventilator Hyperkalemia Metabolic acidosis Status post cardiac arrest, Anoxic encephalopathy Cardiogenic/septic shock NSTEMI Anxiety and depression Plan/recommendation: Strict I&Os Monitor urinary output , decreased Hemodialysis today removed 1 L Vasopressor per primary team We will evaluate kidney function on daily basis, Avoid nephrotoxic medication Ct head--anoxic encephalopathy EEG/perfusion scan showed anoxic brain injury Poor prognosis Case discussed with the Dr. Evans Plan discussed with: Daughter, Other (rn) Dietary Evaluation Review Comments: 1. nepro 35/hr providing 68g pro, 1487kcal, 611ml free water, meeting 107% energy needs, 80% protein needs 2. Increase amount of Protein support for wound healing when/if pt's kidney function impvoes. F/U and reassess when pt is off vent and PRN. Expected Outcomes/Goals: Adequate nutrition support for being on mechanical ventilation CC Plasma Assessment Blood Product Administration S: 06:05 CHIDI BOWERS RESIDENT Sep 15, 2025 14:41
--- NOTE | 2025-09-15 16:32 | DVHINCON2 ---
Date of service: Sep 15, 2025 Referring Physician Surekha Varghese MD Reason for Consultation Assess for brain History of Present Illness The patient is a 40-year-old female seen for second opinion regarding a possible diagnosis of brain . The patient was admitted a few days ago, after she presented with unresponsiveness, found to be in full cardiopulmonary arrest at home. CPR was immediately started by , which was continued by paramedics, eventually. Per documentation and nursing staff, the patient was down for at least 20 minutes. She was subsequently intubated and put on ventilator support. Initial head CT scan was unremarkable, however, repeat head CT scan done a few days later revealed severe diffuse edema consistent with anoxic encephalopathy. Subsequently, a radionucleotide cerebral perfusion scan was done, which did not indicate any blood flow. Since admission, the patient had remained unresponsive to stimulation, aside from flexion movements of the left arm and intermittent twitching jerking movements of the right arm. Family History: Patient reports no known family medical history. Allergies: Coded Allergies: Penicillins (Verified Allergy, Intermediate, RASH, 09/10/25) RED RASH OVER BOTH ARMS, RIGHT SHOULDER AND TRUNK FROM SHOULDER TO BUTTOCK Home Meds Active Scripts Hydrocodone-Acetaminophen (Hydrocodone Bitartrate/AC 10-325 mg) 1 Tab Tab, 1 TAB PO BID, #10 TAB Prov:UNA MARTE 05/15/25 Ibuprofen (Ibuprofen) 800 Mg Tab, 1 TAB PO TID, #20 TAB Prov:UNA MARTE 05/15/25 Hydrocodone-Acetaminophen (Hydrocodone Bitartrate/AC 5-325 mg) 1 Tab Tab, 1 TAB PO TID, #12 TAB Prov:UNA MARTE 05/07/25 Cyclobenzaprine Hcl (Cyclobenzaprine Hcl) 5 Mg Tab, 1 TAB PO QPM PRN, #14 TAB 0 Refills Prov:DARRYL RICO 10/02/22 Acetaminophen W/ Codeine (Tylenol W/Cod #3) 1 Tab Tb, 1 TAB PO QIDP, #10 TAB 0 Refills Prov:DARRYL RICO 10/02/22 Reported Medications Multivit-Min W/Fe-Fa (Mynatal) Cap 07/10/10 Current Medications Current Medications Medications (Trade) Dose Ordered Sig/Ese Route PRN Reason Start Time Stop Time Status Last Admin Albumin Human 100 ml @ 100 mls/hr Q1HR IV 09/15/25 08:00 09/15/25 09:59 DC 09/15/25 09:00 Norepinephrine Bitartrate 250 ml @ 3.75 mls/hr Q24H IV 09/15/25 08:45 09/15/25 11:40 Vital Signs Vital Signs Date Time Temp Pulse Resp B/P (MAP) Pulse Ox O2 Delivery O2 Flow Rate FiO2 09/15/25 15:34 77 15 107/54 (71) 99 30 09/15/25 12:00 Mechanical Ventilator+ 09/15/25 04:00 98.6 98.6 Physical Exam Mental status: The patient's best response is decorticate posturing of the left arm to noxious stimulation. No further more meaningful responses seen. Cranial nerves II through XII: Pupils are 5 to 6 mm nonreactive. Corneal reflex is absent. Doll's eye reflex is absent. Vestibular cephalic reflex is absent bilaterally. No gag reflex elicited. Motor examination: Decorticate posturing of the left arm noted on pain stimulation. Labs/Diagnostic Data Labs Test 09/15/25 11:50 09/15/25 11:06 09/15/25 03:51 09/14/25 06:42 Range/Units POC Glucose 127 H 70-106 mg/dl Blood Gas Specimen Type Arterial Blood Gas Sample Site Right brachial Blood Gas Patient Temperature 37.0 Arterial Blood Date Drawn [id number] Arterial Blood pH 7.477 H 7.350-7.450 Arterial Blood Partial Pressure CO2 46.4 H 32.0-45.0 mmHg Arterial Blood Partial Pressure O2 111.2 H 83.0-108.0 mmHg Arterial Blood HCO3 33.5 H 21.0-28.0 mmol/L Arterial Blood Oxygen Saturation 97.7 94.0-98.0 % Arterial Blood Base Excess 9.1 H -2.0-3.0 mmol/L Arterial Blood Oxyhemoglobin 97.0 94.0-98.0 % Arterial Blood Carboxyhemoglobin 0.3 L 0.5-1.5 % Arterial Blood Methemoglobin 0.4 0.0-1.5 % Arterial Blood Deoxyhemoglobin 2.3 0.0-5.0 % Fernando Test N/a Blood Gas Total Hemoglobin 8.10 L 12.0-16.0 g/dL Blood Gas Set Respiration Rate 15.0 Blood Gas Modality Vent - ac FiO2 % 30.0 Blood Gas Tidal Volume 450.0 Blood Gas PEEP or CPAP 5.0 White Blood Count 13.4 H 4.4-10.8 10^3/uL Red Blood Count 3.41 L 4.0-5.20 10^6/uL Hemoglobin 7.8 L 12.2-16.2 g/dL Hematocrit 24.6 #L 36.0-46.0 % Mean Corpuscular Volume 72.3 L 80.0-100.0 fL Mean Corpuscular Hemoglobin 23.0 L 28.0-32.0 pg Mean Corpuscular Hemoglobin Concent 31.8 L 32.0-36.0 g/dL Red Cell Distribution Width 23.0 H 11.8-14.3 % Platelet Count 257 140-450 10^3/uL Mean Platelet Volume 7.1 6.9-10.8 fL Neutrophils (%) (Auto) 84.2 H 37.0-80.0 % Lymphocytes (%) (Auto) 9.4 L 10.0-50.0 % Monocytes (%) (Auto) 5.4 0.0-12.0 % Eosinophils (%) (Auto) 0.7 0.0-7.0 % Basophils (%) (Auto) 0.3 0.0-2.0 % Neutrophils # (Auto) 11.3 H 1.6-8.6 10 ^3/uL Lymphocytes # (Auto) 1.3 0.4-5.4 10 ^3/uL Monocytes # (Auto) 0.7 0-1.3 10 ^3/uL Eosinophils # (Auto) 0.1 0-0.8 10 ^3/uL Basophils # (Auto) 0 0-0.2 10 ^3/uL Nucleated Red Blood Cells 0.1 % Sodium Level 143 136-145 mmol/L Potassium Level 4.8 3.5-5.1 mmol/L Chloride Level 103 98-107 mmol/L Carbon Dioxide Level 29 20-31 mmol/L Anion Gap 11 5-15 Blood Urea Nitrogen 62 #H 9-23 mg/dL Creatinine 5.33 #H 0.550-1.02 mg/dL Glomerular Filtration Rate Calc 10 >90 mL/min BUN/Creatinine Ratio 11.6 10.0-20.0 Serum Glucose 107 H 74-106 mg/dL Calcium Level 10.0 8.7-10.4 mg/dL Phosphorus Level 4.7 2.4-5.1 mg/dL Magnesium Level 2.1 1.6-2.6 mg/dL Total Bilirubin 0.2 0.2-1.0 mg/dL Aspartate Amino Transferase (AST) 142 H 13-40 U/L Alanine Aminotransferase (ALT) 93 H 7-40 U/L Alkaline Phosphatase 198 H 46-116 U/L Total Protein 6.0 5.7-8.2 g/dL Albumin 2.8 L 3.2-4.8 g/dL Blood Gas Critical Value Read Back yes Blood Gas Notified Whom Blood Gas Notified Time [id number] Blood Gas Notified By reactor operator zoë Test 09/13/25 14:00 09/13/25 04:30 09/13/25 03:40 09/10/25 03:06 Range/Units Stool Occult Blood Negative Negative Stool Occult Blood Sample #3 Negative Hepatitis A IgM Antibody Negative Hepatitis B Surface Antigen Negative Negative Hepatitis B Core IgM Antibody Negative Negative Hepatitis C Antibody Negative Negative Differential Total Cells Counted 100.0 100 Neutrophils % (Manual) 73 37.0-80.0 Band Neutrophils % (Manual) 7 Lymphocytes % (Manual) 13 10.0-50.0 Monocytes % (Manual) 6 0-12 Eosinophils % (Manual) 1 0-7 Basophils % (Manual) 0 0.0-2.0 Metamyelocytes % (manual) 0 Myelocytes % (Manual) 0 Promyelocytes % (Manual) 0 Blast Cells % (Manual) 0 Reactive Lymphocytes 0 Platelet Estimate Adequate Anisocytosis (manual) Slight Iron Level 11 L 50-170 ug/dL Total Iron Binding Capacity 204 L 250-425 ug/dL Percent Iron Saturation 5.4 L 15-50 % Ferritin 132.8 10-291 ng/mL Test 09/09/25 19:40 09/09/25 03:24 09/08/25 13:12 09/07/25 03:50 Range/Units Haptoglobin 166 42-296 mg/dL Fibrinogen > 860 H 177-375 mg/dL Lactate Dehydrogenase 938 H 120-246 U/L Hypochromasia (manual) Moderate Microcytosis Marked Prothrombin Time 11.4 9.3-11.8 sec Prothrombin Time INR 1.08 0.9-1.15 Random Vancomycin Level 21.8 H 5-10 ug/mL Test 09/05/25 20:40 09/05/25 14:01 09/05/25 04:00 09/04/25 18:19 Range/Units Ammonia 17 11-32 umol/L Lactic Acid Level 1.6 0.4-2.0 mmol/L Acetaminophen Level < 2.0 L 10.0-20.0 UG/ML Direct Bilirubin 0.2 <0.3 mg/dL Anti-Nuclear Antibody Comment Comment . Cytoplasmic ANCA (c-ANCA) Antibody <1:20 Neg:<1:20 titer Anti-Proteinase 3 (c-ANCA) <0.2 0.0-0.9 units Atypical p-ANCA <1:20 Neg:<1:20 titer Perinuclear ANCA (p-ANCA) Antibody <1:20 Neg:<1:20 titer Myeloperoxidase Antibody <0.2 0.0-0.9 units MAGNOLIA-1 Antibody <0.2 0.0-0.9 AI SS-A/Ro Antibody <0.2 0.0-0.9 AI SS-B/La Antibody <0.2 0.0-0.9 AI Sm Antibody <0.2 0.0-0.9 AI WEB DESIGNER Antibody <0.2 0.0-0.9 AI Scl-70 (Scleroderma) Antibody <0.2 0.0-0.9 AI Anti-Double Strand DNA Antibody 1 0-9 IU/mL Chromatin Antibody 0.2 0.0-0.9 AI Centromere B Antibody <0.2 0.0-0.9 AI Complement C3 48 L 82-167 mg/dL Complement C4 9 L 12-38 mg/dL Test 09/04/25 17:05 09/04/25 13:46 09/04/25 11:45 09/04/25 05:49 Range/Units Parathyroid Hormone (Intact) 300.3 H 18.4-80.1 pg/mL Urine Creatinine 85.45 30.0-125.0 mg/dL Urine Protein/Creatinine Ratio 5.39 Urine Sodium 52 40-220 mmol/L Urine Total Protein 460.9 H 1-14 mg/dL Troponin I High Sensitivity 7574 *H </=34 ng/L Triglycerides Level 186 H < 150 mg/dL Cholesterol Level 86 < 200 mg/dL LDL Cholesterol 41 < 100 mg/dL HDL Cholesterol 25 L 40-59 mg/dL Vitamin D 25-Hydroxy 37.5 30.0-100 ng/mL Hemoglobin A1c 5.0 <5.7 % A1C Test 09/04/25 03:14 09/04/25 03:10 09/04/25 02:32 09/04/25 01:49 Range/Units Urine Color Light-orange Yellow Urine Clarity Turbid H Clear Urine pH 5.5 5.0-9.0 Urine Specific Bronson 1.015 1.001-1.035 Urine Protein 2+ H Negative Urine Ketones 1+ H Negative Urine Blood 3+ H Negative /uL Urine Nitrite Negative Negative Urine Bilirubin Negative Negative Urine Urobilinogen Normal Negative mg/dL Urine Leukocyte Esterase Negative Negative /uL Urine RBC 281 0 - 4 /hpf Urine Microscopic WBC 37 H 0-5 /HPF Urine Squamous Epithelial Cells Few <5 /hpf Urine Calcium Oxalate Crystals Few None Seen Urine Bacteria Few H None Seen /hpf Urine Hyaline Casts Many 0 - 2 /lpf Urine Mucus Few None Seen Urine Glucose Trace Normal mg/dL Urine Opiates Screen Neg NEGATIVE Urine Fentanyl Screen Neg NEGATIVE Urine Barbiturates Screen Neg NEGATIVE Urine Phencyclidine Screen Neg NEGATIVE Urine Amphetamines Screen Neg NEGATIVE Urine Benzodiazepines Screen Neg NEGATIVE Urine Cocaine Screen Neg NEGATIVE Urine Cannabinoids Screen Neg NEGATIVE Influenza Type A Antigen Negative Negative Influenza Type B Antigen Negative Negative SARS-CoV-2 Antigen (Rapid) Negative NEGATIVE Creatine Kinase 458 H 34-145 U/L Blood Gas Comments Test 09/04/25 01:40 Range/Units B-Type Natriuretic Peptide 8.48 0-100 pg/mL Lipase 31 12-53 U/L Thyroid Stimulating Hormone (TSH) 2.31 0.55-4.78 uIU/mL Plasma/Serum Blood Alcohol < 3.0 <10 mg/dL Microbiology Date/Time Source Procedure Growth Status 09/04/25 23:21 Urine - Sams [place] Urine Culture - Final Complete 09/04/25 10:00 Nose MRSA Screen - Final Complete 09/04/25 04:22 Sputum Expectorated Sputum Gram Stain - Final Complete 09/04/25 04:22 Respiratory Culture - Final Staphylococcus aureus Complete 09/04/25 01:40 Blood Blood Culture - Final NO GROWTH AFTER 5 DAYS OF INCUBATION. Complete Assessment 1.Severe hypoxic ischemic encephalopathy 2. Anoxic cerebral edema 3. Acute respiratory failure 4. Cardiopulmonary arrest of a prolonged duration, with successful resuscitation and ROSC The fact that the patient still has unilateral ledt sided decorticate posturing of the arm implies some amount of partial preservation of brainstem function, thus, her current condition is not totally consistent with formal brain . The patient does have severe advanced hypoxic ischemic encephalopathy, as evidenced by radiology findings, also clinical situation, which is irreversible. The realistic expectation is that the patient will not have any chance of any meaningful neurological recovery in the future, and best case scenario would be a persistent vegetative state. This was communicated in detail with the primary service, the patient's and daughter, also Dr. Varghese. Family will confer among themselves before deciding on eventual course of action in terms of further treatment plans. Plan discussed with: Spouse, Daughter, Other (ICU team) POLLY MARTIN MD Sep 15, 2025 16:32
[2025-09-15] MEDS: EPOETIN ALFA-EPBX 10,000 UNIT/1ML VIAL SC ONE (21:22)
[2025-09-16] VITALS (107 sets, daily range): BP systolic 85–143; BP diastolic 40–75; PULSE 62–79; RESP 6–16; TEMP 98.1–99.2; O2SAT 99–100
--- NOTE | 2025-09-16 00:20 | DVHPN2 ---
Progress Note - Dictate Date Seen: Sep 15, 2025 Has the PT tested + for MRSA If YES, has PT been informed?: No Medical Necessity Reason Pt with a Central, PICC or Fol: Yes The following are medically ne: Central Line, Sams Catheter Subjective Patient was seen and evaluated in follow up in the ICU. Patient is intubated and sedated on ventilator. FiO2 30%. Patient is unresponsive. WBC 13.4, HGB 7.8, HCT 24.6, BUN 62, OIL EXPELLER 5.33, AST 142, ALT 93. Chest x-ray shows increased interstitial prominence. vital signs Vital Sign Date Time Temp Pulse Resp B/P (MAP) Pulse Ox O2 Delivery O2 Flow Rate FiO2 09/15/25 12:37 160/81 09/15/25 12:17 70 15 99 30 09/15/25 08:00 Mechanical Ventilator+ 09/15/25 04:00 98.6 98.6 Total Intake and Output 09/14/25 09/14/25 09/15/25 15:00 23:00 07:00 Intake Total 30.00 ml 530.00 ml 465.00 ml Output Total 75 ml 150 ml Balance 30.00 ml 455.00 ml 315.00 ml medications Current Medications Medications Dose Ordered Sig/Ese Route Start Time Stop Time Status Last Admin Dose Admin Diagnostic Test (Pha) 1 strip ACHS 09/04/25 07:00 09/15/25 11:51 1 STRIP Insulin Human Regular ACHS SC 09/04/25 07:00 09/13/25 17:35 2 UNITS Dextrose 50 ml UD PRN IV 09/04/25 05:15 Pantoprazole Sodium 40 mg DAILY IV 09/06/25 10:00 09/15/25 10:53 40 MG Enteral Nutritional Formula 1,000 ml 35ML/HR GT 09/06/25 11:00 09/15/25 08:32 1,000 ML Artificial Tears 1 drop Q4HP PRN EACHEYE 09/08/25 18:00 09/15/25 02:47 1 DROP Epoetin Nahun-epbx 10,000 unit MWF@2100 SC 09/09/25 21:00 09/14/25 21:02 10,000 UNIT Multi-Ingredient Ointment 1 applic DAILY TOP 09/10/25 10:00 09/15/25 10:56 1 APPLIC Doxycycline Hyclate 100 ml @ 50 mls/hr Q12H IV 09/10/25 11:00 09/15/25 10:56 50 MLS/HR Norepinephrine Bitartrate 250 ml @ 3.75 mls/hr Q24H IV 09/15/25 08:45 09/15/25 11:40 3.75 MLS/HR objective GENERAL: Ill appearing, intubated on ventilator. EYES: PERRL, EOMI. Anicteric. HENT: Moist mucous membranes. LUNGS: Decreased breath sounds. CARDIOVASCULAR: Regular rate and rhythm. ABDOMEN: Soft, nontender and nondistended. EXTREMITIES: No edema. SKIN: Warm, dry. laboratory and microbiology Laboratory Tests 09/15/25 03:51 Test 09/15/25 03:51 Range/Units Serum Glucose 107 H 74-106 mg/dL Problem List Cardiopulmonary arrest with ROSC. Ventricular fibrillation arrest with defibrillation at 100J. Non ST-elevation myocardial infarction. Acute anemia status post blood transfusion (-FOBT). Acute hypoxic respiratory failure. Likely KIMI on CKD. Left nephrectomy. Shocked Liver. Dyslipidemia, newly diagnosed. Cerebral and cerebellar edema, anoxic brain injury. ? Suspected PE with RV failure and PAH. Assessment/Plan Continued all current supportive medical care. IV antibiotics as ordered. Vasopressors for hemodynamic support. GI prophylactics. Additional plan as per the hospital course. Critical care time of 45 minutes provided to include time spent evaluation of patient at bedside, when appropriate patient/family education for diagnosis, treatment plan, review of pertinent medical information and discussion of care with specialty providers and PCP. Mechanical ventilator parameters, treatment and adjustments have personally been reviewed by me and treatment plan by screening technician has also been reviewed. Dietary Evaluation Review Comments: 1. nepro 35/hr providing 68g pro, 1487kcal, 611ml free water, meeting 107% energy needs, 80% protein needs 2. Increase amount of Protein support for wound healing when/if pt's kidney function impvoes. F/U and reassess when pt is off vent and PRN. Expected Outcomes/Goals: Adequate nutrition support for being on mechanical ventilation Plan discussed with: Other CC Plasma Assessment Blood Product Administration S: 06:05 RISHI SOARES MD Sep 15, 2025 13:33
[2025-09-16 03:44] LABS: Hemoglobin 7.2 g/dL (12.2-16.2)
[2025-09-16 03:47] LABS: Hematocrit 22.8 % (36.0-46.0); Mean Corpuscular Hemoglobin 22.8 pg (28.0-32.0); Mean Corpuscular Volume 71.9 fL (80.0-100.0); Nucleated Red Blood Cells % 0.1 %
[2025-09-16 03:58] LABS: Anion Gap 11 (5-15); BUN/Creatinine Ratio 11.9 (10.0-20.0); Calcium 10.1 mg/dL (8.7-10.4); Carbon Dioxide 30 mmol/L (20-31); Chloride 100 mmol/L (98-107); Magnesium 1.9 mg/dL (1.6-2.6); Potassium 3.9 mmol/L (3.5-5.1); Sodium 141 mmol/L (136-145); Total Protein 5.9 g/dL (5.7-8.2)
[2025-09-16 04:00] LABS: Alanine Aminotransferase 67 U/L (7-40); Albumin 3.0 g/dL (3.2-4.8); Alkaline Phosphatase 193 U/L (46-116); Bilirubin, Total 0.3 mg/dL (0.2-1.0); Blood Urea Nitrogen 40 mg/dL (9-23); Glucose 119 mg/dL (74-106)
--- NOTE | 2025-09-16 04:31 | DVH ---
EXAM: XY CHEST XRAY 1 VIEW HISTORY: Acute hypoxic respiratory failure s/p cardiac arrest COMPARISON: XY CHEST XRAY 1 VIEW on DOS: 09/15/25, XY CHEST XRAY 1 VIEW on DOS: 09/14/25, XY CHEST XRAY 1 VIEW on DOS: 09/13/25, XY CHEST PORTABLE on DOS: 09/12/25, XY CHEST XRAY 1 VIEW on DOS: 09/11/25 TECHNIQUE: Portable upright AP view of the chest was performed. FINDINGS: Endotracheal tube is re-identified with its tip 3 cm above the osmel. OG tube and right chest tunneled dialysis catheter re-identified. The left lung bases partially obscured by portion of the patient's left upper extremity. There is mild right upper lobe infiltrate just above the horizontal fissure. No pneumothorax or pulmonary edema. The heart is not enlarged. There are postoperative changes of left proximal humeral ORIF. IMPRESSION: 1. Mechanical ventilation with tubes and lines as above. 2. Mild right upper lobe infiltrate just above the horizontal fissure. The left lung base is not well evaluated.
[2025-09-16 07:55] LABS: Base Excess 5.8 mmol/L (-2.0-3.0)
--- NOTE | 2025-09-16 09:15 | DVHPNRES ---
Progress Note Date Seen: Sep 16, 2025 Resident Creating Document: FRANCIS PRESSLEY RESIDENT Has the PT tested + for MRSA If YES, has PT been informed?: No Medical Necessity Reason Pt with a Central, PICC or Fol: Yes The following are medically ne: Central Line, Sams Catheter Subjective Review of Systems Review of Systems The patient is a 40-year-old female with past medical history of anxiety, UTIs, and kidney stones who presented to [facility] ED for evaluation of cardiac arrest. As reported by EMS/family, patient had cardiac arrest, was asystole 1238 a.m., CPR initiated by family. Patient was initially anxious but was not having any complaints like chest pain or shortness of breath. EMS were on the scene within 5 minutes, CPR continued, patient was given IV fluid, epinephrine x2, became VFib so patient was shocked at 100 joules, Narcan given, became asystole again upon arrival at ER at 0108 hours, blood sugar upon arrival was 43, ROSC obtained at 0112 a.m. Family also reports that patient was depressed for the past 5 years, she has been staying in bed with decreased oral intake, had a fall injury in April resulting in arm and hip fracture. They denied any other significant past medical history. Patient was seen and evaluated in the ED, laboratory data shows WBC 8.8, hemoglobin 6.4, hematocrit 25.0, platelets 260, sodium 151, potassium 6.3, BUN 29, creatinine 2.52, GFR 24, glucose 146, anion gap 28.001, calcium 7.9, lactic acid 21.1 trending down to 15.2, magnesium 4.1, AST 2482, ALT 1430, troponin 2769, BNP 8.48, lipase 31, protein 4.8, albumin 2.7, blood pressure 151/22 trending up to 107/30, heart rate 106, temperature 94.2 F, O2 saturation 97% on ventilator. Head CT showed no acute intracranial abnormality. Patient was started on IV antibiotic regimen vancomycin, please see medication orders section in the computer. On my assessment, patient remains fully intubated, no diaphoresis, no diarrhea, vomiting, no fever. Patient was admitted for further evaluation and medical management. past surgical history; family denies family history: noncontributory past social history: patient lives with the family, denies any smoking, alcohol, drug use 09/06/25: patient seen in ICU. Patient is intubated, on Levophed o, off sedation. Head CT showed diffuse cerebral and cerebellar edema due to anoxic brain injury. neurology following, neurology stated poor prognosis. Kidney functions worsening. Patient's family states before admission patient has seizure-like activity, loss of consciousness which was on and off during the whole day. 09/07/25 40-year-old female in the ICU following cardiopulmonary arrest on 09/04/25, now with severe anoxic brain injury. * Intubated, mechanically ventilated * Off all sedation * No spontaneous movements * No response to pain * No brainstem reflexes: absent corneal, cough, gag, oculocephalic reflexes * Pupils 8 mm, fixed, nonreactive * Family updated todaypoor prognosis discussed, but family chooses FULL CODE and wants everything done Overnight: * Urine output 250 mL total/ 0.15ML/KG/HR * Sams in place, urine [id number] annia * Tube feeds restarted, residuals 15 mL, tolerated * Small bowel movement today * Yamileth-care and sacral wound care performed EEG completed at bedside today for assessment of anoxic injury. Hemodynamics: * On norepinephrine drip for shock Respiratory: * Lungs clear except mild right basal infiltrates Consults: Neurology and Nephrology actively following. 09/08/25 The patient remains critically ill, intubated, mechanically ventilated, and off all sedation since 09/05. Overnight and through today, there continues to be no neurologic improvement. * Mental status unchanged and remains unresponsive/comatose * EEG yesterday inconclusive. Neurology now ordering brain perfusion scan today for brain evaluation * On norepinephrine drip, titrated 8 - 4 mcg/min * CXR today: no major change, persistent bilateral mixed pulmonary opacities and probable small pleural effusions * Oliguria continues * Urine output overnight: 100 mL * Total UO last 24h: 200 mL * Nephrology discontinued Lasix 80 mg BID * Lasix drip started * IR consulted for tunneled dialysis catheter placed today * Plan for hemodialysis/NUCLEAR PHARMACIST likely tomorrow Patient remains in critical multiorgan dysfunction with severe irreversible anoxic brain injury, worsening renal failure requiring NUCLEAR PHARMACIST preparation, hemodynamic instability requiring vasopressors, and persistent respiratory failure on the ventilator. No neurologic recovery. Full code per family request. 09/09/25 The patient remains critically ill, intubated, mechanically ventilated, and off all sedation since 09/05. Overnight and through today, there continues to be no neurologic improvement. * Mental status unchanged and remains unresponsive/comatose * EEG yesterday inconclusive . Neurology now ordering brain perfusion scan today for brain evaluation * Oliguria continues * IR consulted tunneled dialysis catheter today * Plan for hemodialysis/NUCLEAR PHARMACIST likely tomorrow, patient developed b/l upper extremity rash near the right elbow and left antecubital fossa. Patient remains in critical multiorgan dysfunction with severe irreversible anoxic brain injury, worsening renal failure requiring NUCLEAR PHARMACIST preparation, hemodynamic instability requiring vasopressors, and persistent respiratory failure on the ventilator. No neurologic recovery.Full code per family request. 09/10/25 he patient continues to remain critically ill, unresponsive, mechanically ventilated, off all sedation, with severe anoxic brain injury and no signs of neurologic recovery. Family continues to request FULL CODE and continuation of all aggressive medical care. * Urine output: 0.16 mL/kg/hr (severely oliguric) * Yesterday: Hemodialysis with 700 mL ultrafiltration * Today: Plan for 11.5 L ultrafiltration * Tunneled right IJ permacath placed 09/09 * Lasix drip discontinued * Creatinine 5.9 (improving from 7.58) * Iron studies: * Iron 11 (low),TIBC 204 (low),Saturation 5.4% (severely low),Ferritin 132 * EEG: Severe diffuse cerebral dysfunction consistent with severe hypoxic metabolic encephalopathy * Poor prognosis confirmed by neurology * Brain perfusion nuclear scan scheduled today/tomorrow for brain evaluation * Diffuse purpuric rash spreading over upper extremities and lower extremities * Ecchymosis + petechiae + non-blanching lesions * Rash progression after Unasyn possible beta-lactam hypersensitivity * Unasyn discontinued today * Doxycycline started 09/11/25 The patient was examined at bedside this morning. She remains critically ill, mechanically ventilated, unresponsive, and off all sedation. Today's major update is the nuclear brain perfusion scan showing complete absence of intracranial perfusion with hot-nose sign, radiologically consistent with BRAIN , pending final neurologic confirmation. Family was updated about the extremely poor prognosis; however, they insist on FULL CODE and full aggressive care. * When repositioned, HR drops into 30s returned to baseline after stabilization * SpO2: 98% on FiO2 30% * No fever * Urine output: 0.05 mL/kg/hr (severe oliguria) * HD yesterday removed 1.5 L UF * HD planned again tomorrow 09/12/25 The patient was evaluated at bedside today. She remains intubated, mechanically ventilated, and entirely unresponsive with no sedation on board. Neurology officially confirmed BRAIN today based on: * Absent brainstem reflexes * No spontaneous respiration * Nuclear medicine brain perfusion scan showing complete absence of intracranial perfusion * Clinical brain examination performed and documented This was explained thoroughly to the family. Despite clear communication, the family continues to request FULL CODE status and all aggressive measures, including long-term life support and LTAC placement. A social sciences instructor/Case Management consult has been placed for LTAC disposition per family request. 09/13/2025 The patient was evaluated today in the ICU. She remains intubated, mechanically ventilated, on Levophed, and unresponsive with no sedation. She is afebrile, normocardic, and with MAP maintained on pressors. Labs today showed drop in Hb to 6.9, for which 1 unit of PRBC was transfused. Creatinine and BUN continue to increase, for which she was dialyzed today. Stool sample were also to evaluate any possible bleeding. Brain has been declared by neurology, family wishes for her to remain FULL CODE at this time. Per Fuel Quality Tech, the patient does not qualify for LTAC placement at this time. We will continue to monitor. 09/14/25 The patient was evaluated at bedside today. She remains intubated and mechanically ventilated, without sedation, unresponsive, and with previously confirmed brain (absent brain perfusion, absent brainstem reflexes, nuclear perfusion scan positive for brain ). She continues to exhibit no neurologic function. Family met at bedside today. The irreversible prognosis and confirmed brain status were reviewed again. Family is currently discussing goals of care but for now insists the patient remain FULL CODE with continued aggressive care, including ongoing mechanical ventilation and dialysis as needed. Overnight Interval Events Hemoglobin dropped to 6.6 1 unit PRBC transfused post-transfusion Hgb 8.7 Dialysis removed 2 L Rash continues to improve No major ventilatory changes Hemodynamics fluctuating but stable with vasopressors 09/15/25 The patient was evaluated at bedside today. She remains intubated, mechanically ventilated, unresponsive without sedation. Neurologically, she continues to exhibit no cerebral or brainstem activity, consistent with previously documented brain on nuclear medicine perfusion study. Important new finding today: Despite clinical brain , the patient demonstrates spinal reflex activity, including: * Muscle twitching in upper extremities * Brief fast fasciculatory movements upon touch * Reflexive limb motion during turning and repositioning These findings are consistent with spinal reflex arcs, not cortical activity, and do not contradict brain physiology. Family has not yet decided regarding withdrawal of care and continues to insist on full aggressive measures. A second neurologist is scheduled for repeat confirmatory brain- exam today. Hemodialysis ongoing, with UF goal 1 L. Rash that developed after Unasyn is improving.Thrombocytopenia worsened (platelets 23,000). Hemoglobin dropped again. 09/16/25 The patient was evaluated at bedside today. She remains intubated, mechanically ventilated, and completely unresponsive without sedation. Her neurologic status continues to show no meaningful clinical neurologic function, however spinal reflex activity (muscle twitching on touch and during repositioning) persists, consistent with spinal cordmediated reflexes, not brain activity. A second neurologist completed a full clinical examination yesterday including cold caloric testing, corneal reflex, gag, cough reflex, pain response, and oculovestibular function: * Some isolated spinal reflex muscle activity was noted * Neurologist conclusion: * Does NOT meet full clinical criteria for brain because minimal brainstem reflex activity was detected * However, overall exam consistent with irreversible catastrophic anoxic brain injury * Radiologic findings remain consistent with brain pattern * Prognosis: extremely poor, essentially non-survivable anoxic injury Family was updated at bedside. They are considering terminal weaning, but request more time and have decided for now to continue FULL CODE, FULL AGGRESSIVE CARE. Patient continues on mechanical ventilation, dialysis-dependent KIMI,and poor neurologic prognosis. Objective vital signs Vital Sign Date Time Temp Pulse Resp B/P (MAP) Pulse Ox O2 Delivery O2 Flow Rate FiO2 09/16/25 08:00 15 100 Mechanical Ventilator+ 99 99 09/16/25 08:00 64 106/51 (69) 09/16/25 04:00 98.8 98.8 Total Intake and Output 09/15/25 09/15/25 09/16/25 15:00 23:00 07:00 Intake Total 200 ml 370 ml 700 ml Output Total 1000 ml 100 ml 350 ml Balance -800 ml 270 ml 350 ml medications Current Medications Medications Dose Ordered Sig/Ese Route Start Time Stop Time Status Last Admin Dose Admin Diagnostic Test (Pha) 1 strip ACHS 09/04/25 07:00 09/16/25 05:52 1 STRIP Insulin Human Regular ACHS SC 09/04/25 07:00 09/13/25 17:35 2 UNITS Dextrose 50 ml UD PRN IV 09/04/25 05:15 Pantoprazole Sodium 40 mg DAILY IV 09/06/25 10:00 09/15/25 10:53 40 MG Enteral Nutritional Formula 1,000 ml 35ML/HR GT 09/06/25 11:00 09/15/25 08:32 1,000 ML Artificial Tears 1 drop Q4HP PRN EACHEYE 09/08/25 18:00 09/15/25 02:47 1 DROP Epoetin Nahun-epbx 10,000 unit MWF@2100 CA 09/09/25 21:00 09/14/25 21:02 10,000 UNIT Multi-Ingredient Ointment 1 applic DAILY TOP 09/10/25 10:00 09/15/25 10:56 1 APPLIC Doxycycline Hyclate 100 ml @ 50 mls/hr Q12H IV 09/10/25 11:00 09/15/25 22:05 50 MLS/HR Norepinephrine Bitartrate 250 ml @ 3.75 mls/hr Q24H IV 09/15/25 08:45 09/15/25 11:40 3.75 MLS/HR Examination General Intubated, ventilated, unresponsive, no sedation. Neuro * GCS 3T * Pupils fixed/dilated * No corneal, gag, cough reflex * No oculocephalic reflex * Cold caloric: negative bilaterally * Some spinal reflex muscle twitching * No purposeful movement * No response to pain Respiratory Even chest rise; clear to auscultation; no accessory muscle use due to no neurologic drive. Cardiovascular Regular rhythm; labile BP; distal pulses present. GI Soft abdomen; tolerating tube feeds; [address]; oliguric. Skin Rash improving; sacral area healing. Extremities Warm; mild dependent edema. Lines * Endotracheal tube * OG tube * Central line (femoral) * Right IJ tunneled dialysis catheter * Sams catheter laboratory and microbiology Laboratory Tests 09/16/25 02:46 Test 09/16/25 02:46 Range/Units Serum Glucose 119 H 74-106 mg/dL Microbiology Date/Time Source Procedure Growth Status 09/04/25 23:21 Urine - Sams Port Urine Culture - Final Complete 09/04/25 10:00 Nose MRSA Screen - Final Complete 09/04/25 04:22 Sputum Expectorated Sputum Gram Stain - Final Complete 09/04/25 04:22 Respiratory Culture - Final Staphylococcus aureus Complete 09/04/25 01:40 Blood Blood Culture - Final NO GROWTH AFTER 5 DAYS OF INCUBATION. Complete Problem List/Assessment/Plan Problem List/Assessment/Plan ASSESSMENT /PLAN SYSTEM HODGE Neurology #Catastrophic, irreversible, severe anoxic brain injury; extremely poor prognosis Metabolic encephalopathy (secondary to anoxic injury) * Imaging consistent with brain * Clinical exam does NOT meet full brain- criteria (minimal brainstem reflex activity) * Spinal reflexes present * Prognosis: terminal # History of anxiety # Questionable Seizure like activity -Neurology on board - Neurology stated poor prognosis * Continue neuro checks Q1H * Maintain normothermia * Avoid hypotension/hypoxia * Nuclear brain perfusion scan consistent with brain * EEG: Severe diffuse cerebral dysfunction consistent with severe hypoxic metabolic encephalopathy * Discussed with family, family considering terminal weaning but need time for now full code. * Second neurologist exam does not meet brain criteria but poor prognosis, family updated * Maintain current ventilatory support Cardiology #Postcardiac arrest state (VF arrest - ROSC) #Mixed cardiogenic + septic shock on norepinephrine # heart failure with reduced ejection fraction likely post cardiac arrest # Dyslipidemia # Non ST-elevation myocardial infarction likely type 2 status post cardiac arrest, type 1 not ruled out -Head CT -Ekg -Echo : Conclusion MODERATELY DILATED RV AND IS HYPOKINETIC DYSKINESIS OF IVS RVSP IS 40 MM OF HG AND IS HIGH STUDY CONFIRM RV FAILURE GLOBAL LV HYPOKINESIS LV EF IS 40% AND IS REDUCED NORMAL VALVES NO EFFUSION Maintain SPP (Systolic Perfusion Pressure) > 90 mmHg at all times. * Titrate norepinephrine (LEVOPHED) drip to maintain SPP > 90 mmHg. * Monitor for multi-organ shock progression.* Avoid hypotension to preserve brain perfusion * Cardiology involved * Daily EKG * Trend troponins Given anoxic brain injury, the patient is not a candidate for invasive cardiac work-up as per cardiology continue conservative medical management. * Bradycardia episodes with repositioning move gently Respiratory #Acute hypoxic respiratory failure requiring mechanical ventilation * AC/VC: RR 15, TV 450, PEEP 5, FiO2 30% * VAP bundle * Daily CXR * Oral care Q4H * SBT contraindicated Infectious Disease #MSSA / possible aspiration pneumonia * STOPPED Unasyn today due to allergic rash * continue doxycycline * Continue to monitor rash progression * Monitor sputum, blood, urine cultures * COVID/Flu negative * WBC (mild improvement) Hematology Microcytic anemia # severe anemia requiring blood transfusion -2 unit of PRBC transfused Started on IV IRON # coagulopathy likely due to sepsis Monitor Thrombocytopenia (Plt 124), resolved * * Hgb stable at 7.5 , Discontinued Heparin, transfuse only if <7 * Platelets normal * DVT prophylaxis: Heparin held due to anemia * Use SCDs Renal * KIMI stage 3 on solitary kidney *Dialysis-dependent renal failure * Continue daily evaluation for kidney replacement therapy. * Avoid nephrotoxins * Daily BMP, Mg, Phos hyperkalemia Corrected # hypernatremia -initially corrected with a half NS # metabolic acidosis due to sepsis Monitor ABG # respiratory alkalosis Decrease respiratory rate to 12 # hypomagnesemia Monitor Urology # complicated urinary tract infection -on antibiotics # Punctate nonobstructing right renal calculi. Seen on ultrasound # Left nephrectomy. Seen on ultrasound GI Shock liver (AST/ALT markedly elevated) now improving * Continue Nepro tube feeds @ 35 mL/hr * Check residuals Q4H * PPI for ulcer prophylaxis * Monitor stool output Endocrine * Insulin ACHS * Maintain BG [id number] Skin * Stage 1 sacral ulcer * Wound care following * Reposition Q2H * Beta-lactam hypersensitivity improving Ensure no heparin products (including flushes) STOP beta-lactams (done) Start doxycycline (done) Warm compresses to affected areas Reposition Q2H to reduce pressure contribution NO signs of cellulitis (no warmth) Topical emollients (Aquaphor) to reduce skin breakdown Monitor platelets daily OPHTHALMOLOGY * Conjunctival injection, swollen eyelids * Start Lacri-lube eye drops Q6H LINES / TUBES * ETT (09/04) * OG tube * Left femoral central line (09/04) * Sams catheter Right IJ tunneled dialysis catheter (09/09) * Daily line necessity review PROPHYLAXIS * DVT: SCDs only * GI: Pantoprazole * Ulcer: Q2H turns * VAP: oral care, CHG, HOB elevation SOCIAL WORK / FAMILY SUPPORT * Family updated extensively today * They request additional time before deciding terminal extubation * Request continuation of FULL CODE & full aggressive care for now * Social work available for support * Patient does not qualify for LTAC due to lack of insurance Family still discussing long-term goals CODE STATUS FULL CODE Family updated today; despite detailed prognosis counseling, they request full aggressive measures and full code total time spent >20 mins CRITICAL CARE TIME 83 minutes of critical care time spent today, excluding procedure time. . DISCUSSION WITH ATTENDING Case reviewed in detail with attending physician Dr Singleton. Management plan jointly agreed upon. including the clinical presentation, diagnostic workup, and comprehensive management plan. The patient's family was present for the discussion and demonstrated understanding of his condition and the proposed plan. Plan discussed with: Spouse (RN), Daughter My Orders My Orders Orders - FRANCIS PRESSLEY Procedure Category Date Status Time Abg W/ Co-Ox RT 09/16/25 Logged 04:00 Chest Xray 1 View XY 09/16/25 Resulted 04:00 Dietary Evaluation Review Comments: 1. nepro 35/hr providing 68g pro, 1487kcal, 611ml free water, meeting 107% energy needs, 80% protein needs 2. Increase amount of Protein support for wound healing when/if pt's kidney function impvoes. F/U and reassess when pt is off vent and PRN. Expected Outcomes/Goals: Adequate nutrition support for being on mechanical ventilation CC Plasma Assessment Blood Product Administration S: 06:05 Date of Service: Sep 16, 2025 Billing Provider: KEYA SINGLETON MD Common Visit Codes: [id number]-[id number] CARE 30-74 MIN, [id number] CARE-EACH +30MIN FRANCIS PRESSLEY Sep 16, 2025 09:15 KEYA SINGLETON MD Sep 17, 2025 11:25
--- NOTE | 2025-09-16 10:54 | DVHPN2 ---
Progress Note - Dictate Date Seen: Sep 16, 2025 Has the PT tested + for MRSA If YES, has PT been informed?: No Medical Necessity Reason Pt with a Central, PICC or Fol: Yes The following are medically ne: Central Line, Sams Catheter Subjective Ms. Murillo is a 40 years old female with a history of kidney stone, depression, anxiety, she was brought to the [facility] on 09/04/2025 with a chief complaint of cardio pulmonary arrest I have seen and examined the patient, talked to her nurse and other medical staff. She is nonresponsive stroke painful stimuli, pupils are fixed She has increased muscle tone in the left arm, she also has intermittent muscle twitching in the torso The case was discussed with Dr. Bermudez on 09/15/25, because of posturing, he did not think the patient was brain Urinalysis, 09/04/2025: WBC: 37, urine leukocyte esterase: Negative UDS, 09/04/2025: Negative Plasma alcohol, 09/04/2025: <3 ABG, 09/10/2025: Metabolic acidosis WBC/HB/PLT/MCV, 09/04/2025: 8.8/6.4/260/79.8 PT/INR/ABG, 09/04/2025: 70.4/1.73/ Na, 09/04/2025: 151, 148, 140 K, 09/04/2025: 6.3, 4.6, 3.2 BUN/CR, 09/04/2025: 30/2.69 09/12/25: 60 4/5.45 GFR, 09/12/2025: Nine TBI/AST/ALT/AP, 09/04/2025: 0.11/2481/4030/74, 0.01/5737/2100/93, 09/12/25: 0.2/148/180/165 Glucose, 09/04/2025: 146, 294, 503 HGB A1c, 09/04/2025: 5 Lactic acid, 09/04/2025: 21.1, or 15.2 Troponin one high sensitivity, 09/04/2025: 2769, 5664, 7574 TG/HDL/LDL/HDL, 09/04/2025: 186/86/41/25 Extremity venous study, 09/04/2025: NO SONOGRAPHIC EVIDENCE FOR DEEP VENOUS THROMBOSIS IN THE BILATERAL LOWER EXTREMITY VEINS Cerebral flow, 09/10/2025: Findings likely representing brain however clinical correlation is needed. Chest x-ray, 09/12/2025: Probable small bilateral pleural effusions with mild bibasilar atelectatic changes. CT head, 09/04/25: No acute intracranial abnormality (I saw evidence suggestive of early diffuse brain edema) CT head 09/05/25: Findings are consistent with severe diffuse cerebral and cerebellar edema possibly representing anoxic brain injury. vital signs Vital Sign Date Time Temp Pulse Resp B/P (MAP) Pulse Ox O2 Delivery O2 Flow Rate FiO2 09/16/25 10:17 68 15 126/62 (83) 100 30 09/16/25 08:00 Mechanical Ventilator+ 09/16/25 04:00 98.8 98.8 Total Intake and Output 09/15/25 09/15/25 09/16/25 15:00 23:00 07:00 Intake Total 200 ml 370 ml 700 ml Output Total 1000 ml 100 ml 350 ml Balance -800 ml 270 ml 350 ml medications Current Medications Medications Dose Ordered Sig/Ese Route Start Time Stop Time Status Last Admin Dose Admin Diagnostic Test (Pha) 1 strip ACHS 09/04/25 07:00 09/16/25 05:52 1 STRIP Insulin Human Regular ACHS SC 09/04/25 07:00 09/13/25 17:35 2 UNITS Dextrose 50 ml UD PRN IV 09/04/25 05:15 Pantoprazole Sodium 40 mg DAILY IV 09/06/25 10:00 09/16/25 10:15 40 MG Enteral Nutritional Formula 1,000 ml 35ML/HR GT 09/06/25 11:00 09/15/25 08:32 1,000 ML Artificial Tears 1 drop Q4HP PRN EACHEYE 09/08/25 18:00 09/15/25 02:47 1 DROP Epoetin Nahun-epbx 10,000 unit MWF@2100 SC 09/09/25 21:00 Hold 09/14/25 21:02 10,000 UNIT Multi-Ingredient Ointment 1 applic DAILY TOP 09/10/25 10:00 09/15/25 10:56 1 APPLIC Doxycycline Hyclate 100 ml @ 50 mls/hr Q12H IV 09/10/25 11:00 09/16/25 10:15 50 MLS/HR Norepinephrine Bitartrate 250 ml @ 3.75 mls/hr Q24H IV 09/15/25 08:45 09/15/25 11:40 3.75 MLS/HR objective The patient is well-nourished and well-developed with no distress. The patient is intubated MENTAL STATUS: Nonresponsive stroke painful stimuli CRANIAL NERVES: Pupils are equal, round, and fixed, 5 mm both eyes. There are no corneal reflexes and doll's eyes phenomenon. No signs of facial weakness. There are no gagging or coughing reflexes SENSATION: No responses to strong pain stimuli. MOTOR: Normal muscle bulk. No fasciculations. No spontaneous movement. See subjective REFLEXES: Deep tendon reflexes are symmetrical. No pathological reflexes. CEREBELLAR/COORDINATION: Deferred GAIT/STATION: deferred. laboratory and microbiology Laboratory Tests 09/16/25 02:46 Test 09/16/25 02:46 Range/Units Serum Glucose 119 H 74-106 mg/dL Problem List Cardiopulmonary arrest Coma/Metabolic/hypoxic encephalopathy Metabolic acidosis Acute respiratory failure Elevated troponin/heart attack Severe anemia Shocked liver Hypernatremia Increased muscle tone in the left arm Myoclonus in the torso Assessment/Plan Monitoring Supportive treatment ICU care Follow up labs Stabilize vitals/pressor drip Respiratory support/vent management Oxygen Antibiotics DVT prophylaxis GI prophylaxis More recommendation per clinical course Poor prognosis for meaningful/overall recovery This medical document was created using an electronic medical record system with [employer] dictation system. Although this document has been carefully reviewed, there may still be some phonetic and typographical errors. These areas are purely typographical due to imperfections of the software programs, and do not reflect any compromise in the patient's medical care. Prognosis poor Dietary Evaluation Review Comments: 1. nepro 35/hr providing 68g pro, 1487kcal, 611ml free water, meeting 107% energy needs, 80% protein needs 2. Increase amount of Protein support for wound healing when/if pt's kidney function impvoes. F/U and reassess when pt is off vent and PRN. Expected Outcomes/Goals: Adequate nutrition support for being on mechanical ventilation Plan discussed with: Other Critical Care Time(min): 40 CC Plasma Assessment Blood Product Administration S: 06:05 ALEXIS DEL ANGEL MD Sep 16, 2025 10:54
--- NOTE | 2025-09-16 13:51 | DVHPN2 ---
Progress Note Date Seen: Sep 16, 2025 Resident Creating Document: CHIDI BOWERS RESIDENT Has the PT tested + for MRSA If YES, has PT been informed?: No Medical Necessity Reason Pt with a Central, PICC or Fol: Yes The following are medically ne: Central Line, Sams Catheter Subjective Review of Systems Patient seen and examined at the bedside. Unable to obtain ROS due to patient's clinical status currently on mechanical ventilation. Review of Systems: RESPIRATORY:Abnormal Other Systems: Patient seen and examined by myself today in follow-up with the medicine resident, I agree with his assessment and plan Patient remained intubated on the ventilator Objective vital signs Vital Sign Date Time Temp Pulse Resp B/P (MAP) Pulse Ox O2 Delivery O2 Flow Rate FiO2 09/16/25 12:23 65 15 112/58 (76) 100 30 09/16/25 12:00 Mechanical Ventilator+ 09/16/25 04:00 98.8 98.8 Total Intake and Output 09/15/25 09/15/25 09/16/25 15:00 23:00 07:00 Intake Total 200 ml 370 ml 700 ml Output Total 1000 ml 100 ml 350 ml Balance -800 ml 270 ml 350 ml medications Current Medications Medications Dose Ordered Sig/Ese Route Start Time Stop Time Status Last Admin Dose Admin Diagnostic Test (Pha) 1 strip ACHS 09/04/25 07:00 09/16/25 11:30 1 STRIP Insulin Human Regular ACHS SC 09/04/25 07:00 09/13/25 17:35 2 UNITS Dextrose 50 ml UD PRN IV 09/04/25 05:15 Pantoprazole Sodium 40 mg DAILY IV 09/06/25 10:00 09/16/25 10:15 40 MG Enteral Nutritional Formula 1,000 ml 35ML/HR GT 09/06/25 11:00 09/15/25 08:32 1,000 ML Artificial Tears 1 drop Q4HP PRN EACHEYE 09/08/25 18:00 09/15/25 02:47 1 DROP Epoetin Nahun-epbx 10,000 unit MWF@2100 SC 09/09/25 21:00 Hold 09/14/25 21:02 10,000 UNIT Multi-Ingredient Ointment 1 applic DAILY TOP 09/10/25 10:00 09/16/25 10:00 1 APPLIC Doxycycline Hyclate 100 ml @ 50 mls/hr Q12H IV 09/10/25 11:00 09/16/25 10:15 50 MLS/HR Norepinephrine Bitartrate 250 ml @ 3.75 mls/hr Q24H IV 09/15/25 08:45 09/15/25 11:40 3.75 MLS/HR Examination General Appearance: Intubated RASS -3 HEENT: Bilateral pupils are dilated, and nonreactive to the light Respiratory: Clear to auscultation, Normal air movement Cardiovascular: Regular rate, Normal S1, Normal S2, Abdominal: Normal bowel sounds, Soft, Extremities: 2+ edematous all extremities Skin: No rashes, No breakdown, No significant lesion Neuro: Absent gag reflex laboratory and microbiology Laboratory Tests 09/16/25 02:46 Test 09/16/25 02:46 Range/Units Serum Glucose 119 H 74-106 mg/dL Microbiology Date/Time Source Procedure Growth Status 09/04/25 23:21 Urine - Sams Port Urine Culture - Final Complete 09/04/25 10:00 Nose MRSA Screen - Final Complete 09/04/25 04:22 Sputum Expectorated Sputum Gram Stain - Final Complete 09/04/25 04:22 Respiratory Culture - Final Staphylococcus aureus Complete 09/04/25 01:40 Blood Blood Culture - Final NO GROWTH AFTER 5 DAYS OF INCUBATION. Complete Labs and/or images reviewed: Labs reviewed by me, Image(s) reviewed by me Problem List/Assessment/Plan Problem List/Assessment/Plan KIMI, from [facility] (baseline not available), due to cardiac arrest, FeNa > 2% requiring hemodialysis Acute respiratory failure, intubated on ventilator Hyperkalemia Metabolic acidosis Status post cardiac arrest, Anoxic encephalopathy Cardiogenic/septic shock NSTEMI Anxiety and depression Plan/recommendation: Hemodialysis tomorrow, use no heparin Epogen 74315 subQ 3 times weekly Strict I&Os Monitor urinary output ,improved Hemodialysis yesterday removed 1 L Vasopressor per primary team We will evaluate kidney function on daily basis, Avoid nephrotoxic medication Ct head--anoxic encephalopathy EEG/perfusion scan showed anoxic brain injury Poor prognosis Case discussed with the Dr. Barrera Plan discussed with: Spouse, Daughter Dietary Evaluation Review Comments: 1. nepro 35/hr providing 68g pro, 1487kcal, 611ml free water, meeting 107% energy needs, 80% protein needs 2. Increase amount of Protein support for wound healing when/if pt's kidney function impvoes. F/U and reassess when pt is off vent and PRN. Expected Outcomes/Goals: Adequate nutrition support for being on mechanical ventilation CC Plasma Assessment Blood Product Administration S: 06:05 CHIDI BOWERS Sep 16, 2025 13:51 CARISSA BARRERA MD Sep 16, 2025 14:43
--- NOTE | 2025-09-16 23:47 | DVHPN2 ---
Progress Note - Dictate Date Seen: Sep 16, 2025 Has the PT tested + for MRSA If YES, has PT been informed?: No Medical Necessity Reason Pt with a Central, PICC or Fol: Yes The following are medically ne: Central Line, Sams Catheter Subjective Patient was seen and evaluated in follow up in the ICU. Patient is intubated and sedated on ventilator. FiO2 30%. Patient has increased muscle tone in the left arm, she also has intermittent muscle twitching in the torso. WBC 11.3, HGB 7.2, HCT 22.8, BUN 40, Online Content Developer 3.35, AST 140, ALT 67. Chest x-ray shows mild right upper lobe infiltrate just above the horizontal fissure. vital signs Vital Sign Date Time Temp Pulse Resp B/P (MAP) Pulse Ox O2 Delivery O2 Flow Rate FiO2 09/16/25 12:23 65 15 112/58 (76) 100 30 09/16/25 12:00 Mechanical Ventilator+ 09/16/25 04:00 98.8 98.8 Total Intake and Output 09/15/25 09/15/25 09/16/25 14:59 22:59 06:59 Intake Total 203.75 ml 370 ml 700 ml Output Total 1000 ml 100 ml 350 ml Balance -796.25 ml 270 ml 350 ml medications Current Medications Medications Dose Ordered Sig/Ese Route Start Time Stop Time Status Last Admin Dose Admin Diagnostic Test (Pha) 1 strip ACHS 09/04/25 07:00 09/16/25 11:30 1 STRIP Insulin Human Regular ACHS SC 09/04/25 07:00 09/13/25 17:35 2 UNITS Dextrose 50 ml UD PRN IV 09/04/25 05:15 Pantoprazole Sodium 40 mg DAILY IV 09/06/25 10:00 09/16/25 10:15 40 MG Enteral Nutritional Formula 1,000 ml 35ML/HR GT 09/06/25 11:00 09/15/25 08:32 1,000 ML Artificial Tears 1 drop Q4HP PRN EACHEYE 09/08/25 18:00 09/15/25 02:47 1 DROP Epoetin Nahun-epbx 10,000 unit MWF@2100 NV 09/09/25 21:00 Hold 09/14/25 21:02 10,000 UNIT Multi-Ingredient Ointment 1 applic DAILY TOP 09/10/25 10:00 09/16/25 10:00 1 APPLIC Doxycycline Hyclate 100 ml @ 50 mls/hr Q12H IV 09/10/25 11:00 09/16/25 10:15 50 MLS/HR Norepinephrine Bitartrate 250 ml @ 3.75 mls/hr Q24H IV 09/15/25 08:45 09/15/25 11:40 3.75 MLS/HR objective GENERAL: Ill appearing, intubated on ventilator. EYES: PERRL, EOMI. Anicteric. HENT: Moist mucous membranes. LUNGS: Decreased breath sounds. CARDIOVASCULAR: Regular rate and rhythm. ABDOMEN: Soft, nontender and nondistended. EXTREMITIES: No edema. SKIN: Warm, dry. laboratory and microbiology Laboratory Tests 09/16/25 02:46 Test 09/16/25 02:46 Range/Units Serum Glucose 119 H 74-106 mg/dL Problem List Cardiopulmonary arrest with ROSC. Ventricular fibrillation arrest with defibrillation at 100J. Non ST-elevation myocardial infarction. Acute anemia status post blood transfusion (-FOBT). Acute hypoxic respiratory failure. Likely KIMI on CKD. Left nephrectomy. Shocked Liver. Dyslipidemia, newly diagnosed. Cerebral and cerebellar edema, anoxic brain injury. ? Suspected PE with RV failure and PAH. Assessment/Plan Continued all current supportive medical care. IV antibiotics as ordered. GI prophylactics. Additional plan as per the hospital course. Critical care time of 45 minutes provided to include time spent evaluation of patient at bedside, when appropriate patient/family education for diagnosis, treatment plan, review of pertinent medical information and discussion of care with specialty providers and PCP. Mechanical ventilator parameters, treatment and adjustments have personally been reviewed by me and treatment plan by advance agent has also been reviewed. Dietary Evaluation Review Comments: 1. nepro 35/hr providing 68g pro, 1487kcal, 611ml free water, meeting 107% energy needs, 80% protein needs 2. Increase amount of Protein support for wound healing when/if pt's kidney function impvoes. F/U and reassess when pt is off vent and PRN. Expected Outcomes/Goals: Adequate nutrition support for being on mechanical ventilation Plan discussed with: Other CC Plasma Assessment Blood Product Administration S: 06:05 RISHI SOARES MD Sep 16, 2025 13:50
[2025-09-17] VITALS (106 sets, daily range): BP systolic 65–154; BP diastolic 41–82; PULSE 65–98; RESP 9–29; TEMP 97.8–98.7; O2SAT 97–100
[2025-09-17 03:48] LABS: Hematocrit 24.4 % (36.0-46.0); Hemoglobin 7.8 g/dL (12.2-16.2); Mean Corpuscular Hemoglobin 22.9 pg (28.0-32.0); Mean Corpuscular Volume 72.0 fL (80.0-100.0); Nucleated Red Blood Cells % 0.1 %
[2025-09-17 04:04] LABS: Anion Gap 12 (5-15); BUN/Creatinine Ratio 12.9 (10.0-20.0); Carbon Dioxide 30 mmol/L (20-31); Chloride 99 mmol/L (98-107); Potassium 4.3 mmol/L (3.5-5.1); Sodium 141 mmol/L (136-145); Total Protein 5.8 g/dL (5.7-8.2)
[2025-09-17 04:16] LABS: Alanine Aminotransferase 62 U/L (7-40); Albumin 2.9 g/dL (3.2-4.8); Alkaline Phosphatase 262 U/L (46-116); Bilirubin, Total 0.3 mg/dL (0.2-1.0); Blood Urea Nitrogen 58 mg/dL (9-23); Calcium 10.6 mg/dL (8.7-10.4); Glucose 118 mg/dL (74-106)
--- NOTE | 2025-09-17 05:55 | DVH ---
CHEST RADIOGRAPH Indication: Acute hypoxic respiratory failure Technique: XY CHEST XRAY 1 VIEW Comparison: 09/16/2025 FINDINGS: Right IJ Perma catheter tip projects over the SVC. Nasogastric tube projects towards stomach. Endotracheal tube tip projects 4.1 cm above the osmel. The cardiac silhouette is unremarkable. The lungs demonstrate bilateral patchy airspace opacities most pronounced within the mid to lower lungs. The pulmonary vasculature is prominent. Small bilateral pleural effusions. There is no pneumothorax. IMPRESSION: As above
[2025-09-17] MEDS: SODIUM CHL 0.9% 1000 ML BAG XX ONE (07:00)
--- NOTE | 2025-09-17 10:30 | DVHPNRES ---
Progress Note Date Seen: Sep 17, 2025 Resident Creating Document: FRANCIS PRESSLEY RESIDENT Has the PT tested + for MRSA If YES, has PT been informed?: No Medical Necessity Reason Pt with a Central, PICC or Fol: Yes The following are medically ne: Central Line, Sams Catheter Subjective Review of Systems The patient is a 40-year-old female with past medical history of anxiety, UTIs, and kidney stones who presented to [facility] ED for evaluation of cardiac arrest. As reported by EMS/family, patient had cardiac arrest, was asystole 1238 a.m., CPR initiated by family. Patient was initially anxious but was not having any complaints like chest pain or shortness of breath. EMS were on the scene within 5 minutes, CPR continued, patient was given IV fluid, epinephrine x2, became VFib so patient was shocked at 100 joules, Narcan given, became asystole again upon arrival at ER at 0108 hours, blood sugar upon arrival was 43, ROSC obtained at 0112 a.m. Family also reports that patient was depressed for the past 5 years, she has been staying in bed with decreased oral intake, had a fall injury in April resulting in arm and hip fracture. They denied any other significant past medical history. Patient was seen and evaluated in the ED, laboratory data shows WBC 8.8, hemoglobin 6.4, hematocrit 25.0, platelets 260, sodium 151, potassium 6.3, BUN 29, creatinine 2.52, GFR 24, glucose 146, anion gap 28.001, calcium 7.9, lactic acid 21.1 trending down to 15.2, magnesium 4.1, AST 2482, ALT 1430, troponin 2769, BNP 8.48, lipase 31, protein 4.8, albumin 2.7, blood pressure 151/22 trending up to 107/30, heart rate 106, temperature 94.2 F, O2 saturation 97% on ventilator. Head CT showed no acute intracranial abnormality. Patient was started on IV antibiotic regimen vancomycin, please see medication orders section in the computer. On my assessment, patient remains fully intubated, no diaphoresis, no diarrhea, vomiting, no fever. Patient was admitted for further evaluation and medical management. past surgical history; family denies family history: noncontributory past social history: patient lives with the family, denies any smoking, alcohol, drug use 09/06/25: patient seen in ICU. Patient is intubated, on Levophed o, off sedation. Head CT showed diffuse cerebral and cerebellar edema due to anoxic brain injury. neurology following, neurology stated poor prognosis. Kidney functions worsening. Patient's family states before admission patient has seizure-like activity, loss of consciousness which was on and off during the whole day. 09/07/25 40-year-old female in the ICU following cardiopulmonary arrest on 09/04/25, now with severe anoxic brain injury. * Intubated, mechanically ventilated * Off all sedation * No spontaneous movements * No response to pain * No brainstem reflexes: absent corneal, cough, gag, oculocephalic reflexes * Pupils 8 mm, fixed, nonreactive * Family updated todaypoor prognosis discussed, but family chooses FULL CODE and wants everything done Overnight: * Urine output 250 mL total/ 0.15ML/KG/HR * Sams in place, urine [id number] annia * Tube feeds restarted, residuals 15 mL, tolerated * Small bowel movement today * Yamileth-care and sacral wound care performed EEG completed at bedside today for assessment of anoxic injury. Hemodynamics: * On norepinephrine drip for shock Respiratory: * Lungs clear except mild right basal infiltrates Consults: Neurology and Nephrology actively following. 09/08/25 The patient remains critically ill, intubated, mechanically ventilated, and off all sedation since 09/05. Overnight and through today, there continues to be no neurologic improvement. * Mental status unchanged and remains unresponsive/comatose * EEG yesterday inconclusive. Neurology now ordering brain perfusion scan today for brain evaluation * On norepinephrine drip, titrated 8 - 4 mcg/min * CXR today: no major change, persistent bilateral mixed pulmonary opacities and probable small pleural effusions * Oliguria continues * Urine output overnight: 100 mL * Total UO last 24h: 200 mL * Nephrology discontinued Lasix 80 mg BID * Lasix drip started * IR consulted for tunneled dialysis catheter placed today * Plan for hemodialysis/SKIMMER SCOOP OPERATOR likely tomorrow Patient remains in critical multiorgan dysfunction with severe irreversible anoxic brain injury, worsening renal failure requiring SKIMMER SCOOP OPERATOR preparation, hemodynamic instability requiring vasopressors, and persistent respiratory failure on the ventilator. No neurologic recovery. Full code per family request. 09/09/25 The patient remains critically ill, intubated, mechanically ventilated, and off all sedation since 09/05. Overnight and through today, there continues to be no neurologic improvement. * Mental status unchanged and remains unresponsive/comatose * EEG yesterday inconclusive . Neurology now ordering brain perfusion scan today for brain evaluation * Oliguria continues * IR consulted tunneled dialysis catheter today * Plan for hemodialysis/[facility]IMMER SCOOP OPERATOR likely tomorrow, patient developed b/l upper extremity rash near the right elbow and left antecubital fossa. Patient remains in critical multiorgan dysfunction with severe irreversible anoxic brain injury, worsening renal failure requiring SKIMMER SCOOP OPERATOR preparation, hemodynamic instability requiring vasopressors, and persistent respiratory failure on the ventilator. No neurologic recovery.Full code per family request. 09/10/25 he patient continues to remain critically ill, unresponsive, mechanically ventilated, off all sedation, with severe anoxic brain injury and no signs of neurologic recovery. Family continues to request FULL CODE and continuation of all aggressive medical care. * Urine output: 0.16 mL/kg/hr (severely oliguric) * Yesterday: Hemodialysis with 700 mL ultrafiltration * Today: Plan for 11.5 L ultrafiltration * Tunneled right IJ permacath placed 09/09 * Lasix drip discontinued * Creatinine 5.9 (improving from 7.58) * Iron studies: * Iron 11 (low),TIBC 204 (low),Saturation 5.4% (severely low),Ferritin 132 * EEG: Severe diffuse cerebral dysfunction consistent with severe hypoxic metabolic encephalopathy * Poor prognosis confirmed by neurology * Brain perfusion nuclear scan scheduled today/tomorrow for brain evaluation * Diffuse purpuric rash spreading over upper extremities and lower extremities * Ecchymosis + petechiae + non-blanching lesions * Rash progression after Unasyn possible beta-lactam hypersensitivity * Unasyn discontinued today * Doxycycline started 09/11/25 The patient was examined at bedside this morning. She remains critically ill, mechanically ventilated, unresponsive, and off all sedation. Today's major update is the nuclear brain perfusion scan showing complete absence of intracranial perfusion with hot-nose sign, radiologically consistent with BRAIN , pending final neurologic confirmation. Family was updated about the extremely poor prognosis; however, they insist on FULL CODE and full aggressive care. * When repositioned, HR drops into 30s returned to baseline after stabilization * SpO2: 98% on FiO2 30% * No fever * Urine output: 0.05 mL/kg/hr (severe oliguria) * HD yesterday removed 1.5 L UF * HD planned again tomorrow 09/12/25 The patient was evaluated at bedside today. She remains intubated, mechanically ventilated, and entirely unresponsive with no sedation on board. Neurology officially confirmed BRAIN today based on: * Absent brainstem reflexes * No spontaneous respiration * Nuclear medicine brain perfusion scan showing complete absence of intracranial perfusion * Clinical brain examination performed and documented This was explained thoroughly to the family. Despite clear communication, the family continues to request FULL CODE status and all aggressive measures, including long-term life support and LTAC placement. A community mental health social worker/Case Management consult has been placed for LTAC disposition per family request. 09/13/2025 The patient was evaluated today in the ICU. She remains intubated, mechanically ventilated, on Levophed, and unresponsive with no sedation. She is afebrile, normocardic, and with MAP maintained on pressors. Labs today showed drop in Hb to 6.9, for which 1 unit of PRBC was transfused. Creatinine and BUN continue to increase, for which she was dialyzed today. Stool sample were also to evaluate any possible bleeding. Brain has been declared by neurology, family wishes for her to remain FULL CODE at this time. Per Toll Settlement Clerk, the patient does not qualify for LTAC placement at this time. We will continue to monitor. 09/14/25 The patient was evaluated at bedside today. She remains intubated and mechanically ventilated, without sedation, unresponsive, and with previously confirmed brain (absent brain perfusion, absent brainstem reflexes, nuclear perfusion scan positive for brain ). She continues to exhibit no neurologic function. Family met at bedside today. The irreversible prognosis and confirmed brain status were reviewed again. Family is currently discussing goals of care but for now insists the patient remain FULL CODE with continued aggressive care, including ongoing mechanical ventilation and dialysis as needed. Overnight Interval Events Hemoglobin dropped to 6.6 1 unit PRBC transfused post-transfusion Hgb 8.7 Dialysis removed 2 L Rash continues to improve No major ventilatory changes Hemodynamics fluctuating but stable with vasopressors 09/15/25 The patient was evaluated at bedside today. She remains intubated, mechanically ventilated, unresponsive without sedation. Neurologically, she continues to exhibit no cerebral or brainstem activity, consistent with previously documented brain on nuclear medicine perfusion study. Important new finding today: Despite clinical brain , the patient demonstrates spinal reflex activity, including: * Muscle twitching in upper extremities * Brief fast fasciculatory movements upon touch * Reflexive limb motion during turning and repositioning These findings are consistent with spinal reflex arcs, not cortical activity, and do not contradict brain physiology. Family has not yet decided regarding withdrawal of care and continues to insist on full aggressive measures. A second neurologist is scheduled for repeat confirmatory brain- exam today. Hemodialysis ongoing, with UF goal 1 L. Rash that developed after Unasyn is improving.Thrombocytopenia worsened (platelets 23,000). Hemoglobin dropped again. 09/16/25 The patient was evaluated at bedside today. She remains intubated, mechanically ventilated, and completely unresponsive without sedation. Her neurologic status continues to show no meaningful clinical neurologic function, however spinal reflex activity (muscle twitching on touch and during repositioning) persists, consistent with spinal cordmediated reflexes, not brain activity. A second neurologist completed a full clinical examination yesterday including cold caloric testing, corneal reflex, gag, cough reflex, pain response, and oculovestibular function: * Some isolated spinal reflex muscle activity was noted * Neurologist conclusion: * Does NOT meet full clinical criteria for brain because minimal brainstem reflex activity was detected * However, overall exam consistent with irreversible catastrophic anoxic brain injury * Radiologic findings remain consistent with brain pattern * Prognosis: extremely poor, essentially non-survivable anoxic injury Family was updated at bedside. They are considering terminal weaning, but request more time and have decided for now to continue FULL CODE, FULL AGGRESSIVE CARE. Patient continues on mechanical ventilation, dialysis-dependent KIMI,and poor neurologic prognosis. 09/17/25 The patient was evaluated at bedside today. She remains intubated, mechanically ventilated, profoundly unresponsive, and off all sedation. Her neurologic status is unchanged , consistent with irreversible catastrophic anoxic brain injury, although she does not meet full clinical criteria for formal brain (as per second neurologist evaluation). She continues to demonstrate intermittent spinal reflex activity (muscle twitching with touch or turning), consistent with spinal cordmediated reflexes. The family continues to deliberate regarding terminal weaning. They have not yet decided on the timing and request additional time. Until a final decision is made, they request FULL CODE and full aggressive support. No new acute events overnight. Hemodynamics remain supported with norepinephrine drip, titrated to maintain SPP > 90 mmHg per updated neuro-critical care plan. The patient is scheduled for hemodialysis today, with UF per nephrology recommendations. No other major changes in clinical condition. Objective vital signs Vital Sign Date Time Temp Pulse Resp B/P (MAP) Pulse Ox O2 Delivery O2 Flow Rate FiO2 09/17/25 09:52 74 15 116/54 (74) 99 30 09/17/25 06:00 Mechanical Ventilator+ 09/17/25 00:00 98.7 98.7 Total Intake and Output 09/16/25 09/16/25 09/17/25 15:00 23:00 07:00 Intake Total 350 ml 350 ml Output Total 150 ml 300 ml Balance 200 ml 50 ml medications Current Medications Medications Dose Ordered Sig/Ese Route Start Time Stop Time Status Last Admin Dose Admin Diagnostic Test (Pha) 1 strip ACHS 09/04/25 07:00 09/17/25 06:50 1 STRIP Insulin Human Regular ACHS SC 09/04/25 07:00 09/13/25 17:35 2 UNITS Dextrose 50 ml UD PRN IV 09/04/25 05:15 Pantoprazole Sodium 40 mg DAILY IV 09/06/25 10:00 09/16/25 10:15 40 MG Enteral Nutritional Formula 1,000 ml 35ML/HR GT 09/06/25 11:00 09/15/25 08:32 1,000 ML Artificial Tears 1 drop Q4HP PRN EACHEYE 09/08/25 18:00 09/15/25 02:47 1 DROP Epoetin Nahun-epbx 10,000 unit MWF@2100 SD 09/09/25 21:00 Hold 09/14/25 21:02 10,000 UNIT Multi-Ingredient Ointment 1 applic DAILY TOP 09/10/25 10:00 09/16/25 10:00 1 APPLIC Doxycycline Hyclate 100 ml @ 50 mls/hr Q12H IV 09/10/25 11:00 09/16/25 23:57 50 MLS/HR Norepinephrine Bitartrate 250 ml @ 3.75 mls/hr Q24H IV 09/15/25 08:45 09/15/25 11:40 3.75 MLS/HR Examination General Intubated, ventilated, unresponsive, no sedation. Neuro * GCS 3T * Pupils fixed/dilated * No corneal, gag, cough reflex * No oculocephalic reflex * Cold caloric: negative bilaterally * Some spinal reflex muscle twitching * No purposeful movement * No response to pain Respiratory Even chest rise; clear to auscultation; no accessory muscle use due to no neurologic drive. Cardiovascular Regular rhythm; labile BP; distal pulses present. GI Soft abdomen; tolerating tube feeds; [address]; oliguric. Skin Rash improving; sacral area healing. Extremities Warm; mild dependent edema. Lines * Endotracheal tube * OG tube * Central line (femoral) * Right IJ tunneled dialysis catheter * Sams catheter laboratory and microbiology Laboratory Tests 09/17/25 03:20 Test 09/17/25 03:20 Range/Units Serum Glucose 118 H 74-106 mg/dL Microbiology Date/Time Source Procedure Growth Status 09/04/25 23:21 Urine - Sams Port Urine Culture - Final Complete 09/04/25 10:00 Nose MRSA Screen - Final Complete 09/04/25 04:22 Sputum Expectorated Sputum Gram Stain - Final Complete 09/04/25 04:22 Respiratory Culture - Final Staphylococcus aureus Complete 09/04/25 01:40 Blood Blood Culture - Final NO GROWTH AFTER 5 DAYS OF INCUBATION. Complete Problem List/Assessment/Plan Problem List/Assessment/Plan ASSESSMENT /PLAN SYSTEM HODGE Neurology #Catastrophic, irreversible, severe anoxic brain injury; extremely poor prognosis Metabolic encephalopathy (secondary to anoxic injury) * Imaging consistent with brain * Clinical exam does NOT meet full brain- criteria (minimal brainstem reflex activity) * Spinal reflexes present * Prognosis: terminal # History of anxiety # Questionable Seizure like activity -Neurology on board - Neurology stated poor prognosis * Continue neuro checks Q1H * Maintain normothermia * Avoid hypotension/hypoxia * Nuclear brain perfusion scan consistent with brain * EEG: Severe diffuse cerebral dysfunction consistent with severe hypoxic metabolic encephalopathy * Discussed with family, family considering terminal weaning but need time for now full code. * Second neurologist exam does not meet brain criteria but poor prognosis, family updated * Maintain current ventilatory support Cardiology #Postcardiac arrest state (VF arrest - ROSC) #Mixed cardiogenic + septic shock on norepinephrine # heart failure with reduced ejection fraction likely post cardiac arrest # Dyslipidemia # Non ST-elevation myocardial infarction likely type 2 status post cardiac arrest, type 1 not ruled out -Head CT -Ekg -Echo : Conclusion MODERATELY DILATED RV AND IS HYPOKINETIC DYSKINESIS OF IVS RVSP IS 40 MM OF HG AND IS HIGH STUDY CONFIRM RV FAILURE GLOBAL LV HYPOKINESIS LV EF IS 40% AND IS REDUCED NORMAL VALVES NO EFFUSION Maintain SPP (Systolic Perfusion Pressure) > 90 mmHg at all times. * Titrate norepinephrine (LEVOPHED) drip to maintain SPP > 90 mmHg. * Monitor for multi-organ shock progression.* Avoid hypotension to preserve brain perfusion * Cardiology involved * Daily EKG * Trend troponins Given anoxic brain injury, the patient is not a candidate for invasive cardiac work-up as per cardiology continue conservative medical management. * Bradycardia episodes with repositioning move gently Respiratory #Acute hypoxic respiratory failure requiring mechanical ventilation * AC/VC: RR 15, TV 450, PEEP 5, FiO2 30% * VAP bundle * Daily CXR * Oral care Q4H * SBT contraindicated Infectious Disease #MSSA / possible aspiration pneumonia * STOPPED Unasyn today due to allergic rash * continue doxycycline * Continue to monitor rash progression * Monitor sputum, blood, urine cultures * COVID/Flu negative * WBC (mild improvement) Hematology Microcytic anemia # severe anemia requiring blood transfusion -2 unit of PRBC transfused Started on IV IRON # coagulopathy likely due to sepsis Monitor Thrombocytopenia (Plt 124), resolved * * Hgb stable at 7.5 , Discontinued Heparin, transfuse only if <7 * Platelets normal * DVT prophylaxis: Heparin held due to anemia * Use SCDs Renal * KIMI stage 3 on solitary kidney *Dialysis-dependent renal failure * Continue daily evaluation for kidney replacement therapy. * Avoid nephrotoxins * Daily BMP, Mg, Phos hyperkalemia Corrected # hypernatremia -initially corrected with a half NS # metabolic acidosis due to sepsis Monitor ABG # respiratory alkalosis Decrease respiratory rate to 12 # hypomagnesemia Monitor Urology # complicated urinary tract infection -on antibiotics # Punctate nonobstructing right renal calculi. Seen on ultrasound # Left nephrectomy. Seen on ultrasound GI Shock liver (AST/ALT markedly elevated) now improving * Continue Nepro tube feeds @ 35 mL/hr * Check residuals Q4H * PPI for ulcer prophylaxis * Monitor stool output Endocrine * Insulin ACHS * Maintain BG [id number] Skin * Stage 1 sacral ulcer * Wound care following * Reposition Q2H * Beta-lactam hypersensitivity improving Ensure no heparin products (including flushes) STOP beta-lactams (done) Start doxycycline (done) Warm compresses to affected areas Reposition Q2H to reduce pressure contribution NO signs of cellulitis (no warmth) Topical emollients (Aquaphor) to reduce skin breakdown Monitor platelets daily OPHTHALMOLOGY * Conjunctival injection, swollen eyelids * Start Lacri-lube eye drops Q6H LINES / TUBES * ETT (09/04) * OG tube * Left femoral central line (09/04) * Sams catheter Right IJ tunneled dialysis catheter (09/09) * Daily line necessity review PROPHYLAXIS * DVT: SCDs only * GI: Pantoprazole * Ulcer: Q2H turns * VAP: oral care, CHG, HOB elevation SOCIAL WORK / FAMILY SUPPORT * Family updated extensively today * They request additional time before deciding terminal extubation * Request continuation of FULL CODE & full aggressive care for now * Social work available for support * Patient does not qualify for LTAC due to poor pronosis Family still discussing long-term goals CODE STATUS FULL CODE Family updated today; despite detailed prognosis counseling, they request full aggressive measures and full code total time spent >20 mins CRITICAL CARE TIME 83 minutes of critical care time spent today, excluding procedure time. . DISCUSSION WITH ATTENDING Case reviewed in detail with attending physician Dr Salcido. Management plan jointly agreed upon. including the clinical presentation, diagnostic workup, and comprehensive management plan. The patient's family was present for the discussion and demonstrated understanding of his condition and the proposed plan. Plan discussed with: Spouse, Daughter, Other (RN) My Orders My Orders Orders - FRANCIS PRESSLEY RESIDENT Procedure Category Date Status Time Chest Xray 1 View XY 09/17/25 Resulted 04:00 Abg W/ Co-Ox RT 09/17/25 Logged 09:42 Dietary Evaluation Review Comments: 1. nepro 35/hr providing 68g pro, 1487kcal, 611ml free water, meeting 107% energy needs, 80% protein needs 2. Increase amount of Protein support for wound healing when/if pt's kidney function impvoes. F/U and reassess when pt is off vent and PRN. Expected Outcomes/Goals: Adequate nutrition support for being on mechanical ventilation CC Plasma Assessment Blood Product Administration S: 06:05 FRANCIS PRESSLEY RESIDENT Sep 17, 2025 10:30
--- NOTE | 2025-09-17 12:24 | DVHPN2 ---
Progress Note Date Seen: Sep 17, 2025 Has the PT tested + for MRSA If YES, has PT been informed?: No Medical Necessity Reason Pt with a Central, PICC or Fol: Yes The following are medically ne: Central Line, Sams Catheter Subjective Review of Systems: Deferred Objective vital signs Vital Sign Date Time Temp Pulse Resp B/P (MAP) Pulse Ox O2 Delivery O2 Flow Rate FiO2 09/17/25 12:00 30 09/17/25 12:00 15 98 Mechanical Ventilator+ 09/17/25 11:45 97.8 79 113/57 (75) 97.8 Total Intake and Output 09/16/25 09/16/25 09/17/25 15:00 23:00 07:00 Intake Total 350 ml 350 ml Output Total 150 ml 300 ml Balance 200 ml 50 ml medications Current Medications Medications Dose Ordered Sig/Ese Route Start Time Stop Time Status Last Admin Dose Admin Diagnostic Test (Pha) 1 strip ACHS 09/04/25 07:00 09/17/25 11:18 1 STRIP Insulin Human Regular ACHS SC 09/04/25 07:00 09/13/25 17:35 2 UNITS Dextrose 50 ml UD PRN IV 09/04/25 05:15 Pantoprazole Sodium 40 mg DAILY IV 09/06/25 10:00 09/17/25 10:34 40 MG Enteral Nutritional Formula 1,000 ml 35ML/HR GT 09/06/25 11:00 09/15/25 08:32 1,000 ML Artificial Tears 1 drop Q4HP PRN EACHEYE 09/08/25 18:00 09/15/25 02:47 1 DROP Epoetin Nahun-epbx 10,000 unit MWF@2100 UT 09/09/25 21:00 Hold 09/14/25 21:02 10,000 UNIT Multi-Ingredient Ointment 1 applic DAILY TOP 09/10/25 10:00 09/17/25 10:36 1 APPLIC Doxycycline Hyclate 100 ml @ 50 mls/hr Q12H IV 09/10/25 11:00 09/17/25 10:34 50 MLS/HR Norepinephrine Bitartrate 250 ml @ 3.75 mls/hr Q24H IV 09/15/25 08:45 09/15/25 11:40 3.75 MLS/HR Examination: GENERAL:Abnormal, CVS:Abnormal, ABDOMEN:Normal, SKIN:Abnormal, NEURO:Abnormal laboratory and microbiology Laboratory Tests 09/17/25 03:20 Test 09/17/25 03:20 Range/Units Serum Glucose 118 H 74-106 mg/dL Microbiology Date/Time Source Procedure Growth Status 09/04/25 23:21 Urine - Sams Port Urine Culture - Final Complete 09/04/25 10:00 Nose MRSA Screen - Final Complete 09/04/25 04:22 Sputum Expectorated Sputum Gram Stain - Final Complete 09/04/25 04:22 Respiratory Culture - Final Staphylococcus aureus Complete 09/04/25 01:40 Blood Blood Culture - Final NO GROWTH AFTER 5 DAYS OF INCUBATION. Complete Problem List/Assessment/Plan Problem List/Assessment/Plan KIMI, from [facility] (baseline not available), due to cardiac arrest, FeNa > 2% requiring hemodialysis Acute respiratory failure, intubated on ventilator Status post cardiac arrest Anoxic encephalopathy Cardiogenic/septic shock NSTEMI Plan/recommendation: Hemodialysis today, use no heparin Epogen 88695 subQ 3 times weekly Strict I&Os Monitor urinary output ,improved Vasopressor per primary team Avoid nephrotoxic medication Ct head--anoxic encephalopathy EEG/perfusion scan showed anoxic brain injury, defer to neurology and primary for care home care and management from renal standpoint no renal recovery noted Plan discussed with: Other Dietary Evaluation Review Comments: 1. nepro 35/hr providing 68g pro, 1487kcal, 611ml free water, meeting 107% energy needs, 80% protein needs 2. Increase amount of Protein support for wound healing when/if pt's kidney function impvoes. F/U and reassess when pt is off vent and PRN. Expected Outcomes/Goals: Adequate nutrition support for being on mechanical ventilation CC Plasma Assessment Blood Product Administration S: 06:05 DAXA NG MD Sep 17, 2025 12:24
[2025-09-17] MEDS: EPOETIN ALFA-EPBX 10,000 UNIT/1ML VIAL SC ONE (21:57)
[2025-09-18] VITALS (109 sets, daily range): BP systolic 83–138; BP diastolic 24–73; PULSE 82–97; RESP 8–32; TEMP 98.5–99.4; O2SAT 97–100
--- NOTE | 2025-09-18 00:07 | DVHPN2 ---
Progress Note - Dictate Date Seen: Sep 17, 2025 Has the PT tested + for MRSA If YES, has PT been informed?: No Medical Necessity Reason Pt with a Central, PICC or Fol: Yes The following are medically ne: Central Line, Sams Catheter Subjective Patient was seen and evaluated in follow up in the ICU. Patient is intubated on ventilator. FiO2 30%. Patient is off sedation. Chest x-ray shows bilateral patchy airspace opacities most pronounced within the mid to lower lungs. The pulmonary vasculature is prominent. Small bilateral pleural effusions. There is no pneumothorax. WBC 12.3, HGB 7.8, HCT 24.4, BUN 58, Middleware Architect 4.49, AST 149, ALT 62, ALK PHOS 262. vital signs Vital Sign Date Time Temp Pulse Resp B/P (MAP) Pulse Ox O2 Delivery O2 Flow Rate FiO2 09/17/25 22:13 95 15 132/75 (94) 98 30 09/17/25 20:00 98.4 98.4 09/17/25 18:00 Mechanical Ventilator+ Total Intake and Output 09/17/25 09/17/25 09/18/25 15:00 23:00 07:00 Intake Total 230 ml Output Total 225 ml Balance 5 ml medications Current Medications Medications Dose Ordered Sig/Ese Route Start Time Stop Time Status Last Admin Dose Admin Diagnostic Test (Pha) 1 strip ACHS 09/04/25 07:00 09/17/25 21:56 1 STRIP Insulin Human Regular ACHS SC 09/04/25 07:00 09/17/25 22:00 2 UNITS Dextrose 50 ml UD PRN IV 09/04/25 05:15 Pantoprazole Sodium 40 mg DAILY IV 09/06/25 10:00 09/17/25 10:34 40 MG Enteral Nutritional Formula 1,000 ml 35ML/HR GT 09/06/25 11:00 09/17/25 20:05 1,000 ML Artificial Tears 1 drop Q4HP PRN EACHEYE 09/08/25 18:00 09/15/25 02:47 1 DROP Epoetin Nahun-epbx 10,000 unit MWF@2100 SC 09/09/25 21:00 Hold 09/14/25 21:02 10,000 UNIT Multi-Ingredient Ointment 1 applic DAILY TOP 09/10/25 10:00 09/17/25 10:36 1 APPLIC Doxycycline Hyclate 100 ml @ 50 mls/hr Q12H IV 09/10/25 11:00 09/17/25 23:21 50 MLS/HR Norepinephrine Bitartrate 250 ml @ 3.75 mls/hr Q24H IV 09/15/25 08:45 09/17/25 18:32 13.125 MLS/HR objective GENERAL: Ill appearing, intubated on ventilator. EYES: PERRL, EOMI. Anicteric. HENT: Moist mucous membranes. LUNGS: Decreased breath sounds. CARDIOVASCULAR: Regular rate and rhythm. ABDOMEN: Soft, nontender and nondistended. EXTREMITIES: No edema. SKIN: Warm, dry. laboratory and microbiology Laboratory Tests 09/17/25 03:20 Test 09/17/25 03:20 Range/Units Serum Glucose 118 H 74-106 mg/dL Problem List Cardiopulmonary arrest with ROSC. Ventricular fibrillation arrest with defibrillation at 100J. Non ST-elevation myocardial infarction. Acute anemia status post blood transfusion (-FOBT). Acute hypoxic respiratory failure. Likely KIMI on CKD. Left nephrectomy. Shocked Liver. Dyslipidemia, newly diagnosed. Cerebral and cerebellar edema, anoxic brain injury. ? Suspected PE with RV failure and PAH. Assessment/Plan Continued all current supportive medical care. IV antibiotics as ordered. GI prophylactics. Additional plan as per the hospital course. Critical care time of 45 minutes provided to include time spent evaluation of patient at bedside, when appropriate patient/family education for diagnosis, treatment plan, review of pertinent medical information and discussion of care with specialty providers and PCP. Mechanical ventilator parameters, treatment and adjustments have personally been reviewed by me and treatment plan by dredge worker has also been reviewed. Dietary Evaluation Review Comments: 1. nepro 35/hr providing 68g pro, 1487kcal, 611ml free water, meeting 107% energy needs, 80% protein needs 2. Increase amount of Protein support for wound healing when/if pt's kidney function impvoes. F/U and reassess when pt is off vent and PRN. Expected Outcomes/Goals: Adequate nutrition support for being on mechanical ventilation Plan discussed with: Other CC Plasma Assessment Blood Product Administration S: 06:05 RISHI SOARES MD Sep 18, 2025 00:07
[2025-09-18 04:36] LABS: Albumin 3.3 g/dL (3.2-4.8); Bilirubin, Total 0.3 mg/dL (0.2-1.0); Chloride 100 mmol/L (98-107); Sodium 142 mmol/L (136-145); Total Protein 6.7 g/dL (5.7-8.2)
[2025-09-18 04:41] LABS: Blood Urea Nitrogen 43 mg/dL (9-23)
[2025-09-18 04:45] LABS: Alanine Aminotransferase 74 U/L (7-40); Alkaline Phosphatase 411 U/L (46-116); Anion Gap 11 (5-15); BUN/Creatinine Ratio 12.7 (10.0-20.0); Calcium 10.4 mg/dL (8.7-10.4); Carbon Dioxide 31 mmol/L (20-31); Glucose 111 mg/dL (74-106); Potassium 5.1 mmol/L (3.5-5.1)
--- NOTE | 2025-09-18 04:50 | DVH ---
CHEST RADIOGRAPH Indication: Acute hypoxic respiratory failure Technique: Single frontal view of the chest was obtained COMPARISON: XY CHEST XRAY 1 VIEW on DOS: 09/17/25, XY CHEST XRAY 1 VIEW on DOS: 09/16/25, XY CHEST XRAY 1 VIEW on DOS: 09/15/25, XY CHEST XRAY 1 VIEW on DOS: 09/14/25, XY CHEST XRAY 1 VIEW on DOS: 09/13/25 FINDINGS: Lines and Tubes: Endotracheal tube, enteric catheter and right tunneled central venous catheter in satisfactory position. Lungs: Increased interstitial prominence. This may represent pulmonary vascular congestion and/or viral pneumonia. Pleura: No effusion.No pneumothorax. Cardiomediastinal contours: Unremarkable Bones: Unremarkable IMPRESSION: Lines and tubes in satisfactory position. Increased interstitial prominence. This may represent pulmonary vascular congestion and/or viral pneumonia.
[2025-09-18 08:37] LABS: Nucleated Red Blood Cells % 0.1 %
[2025-09-18 08:39] LABS: Hematocrit 26.5 % (36.0-46.0); Hemoglobin 8.4 g/dL (12.2-16.2); Mean Corpuscular Hemoglobin 23.1 pg (28.0-32.0); Mean Corpuscular Volume 73.0 fL (80.0-100.0)
[2025-09-18 09:55] LABS: Base Excess 4.0 mmol/L (-2.0-3.0)
--- NOTE | 2025-09-18 10:45 | DVHPNRES ---
Progress Note Date Seen: Sep 18, 2025 Resident Creating Document: FRANCIS PRESSLEY RESIDENT Has the PT tested + for MRSA If YES, has PT been informed?: No Medical Necessity Reason Pt with a Central, PICC or Fol: Yes The following are medically ne: Central Line, Sams Catheter Subjective Review of Systems The patient is a 40-year-old female with past medical history of anxiety, UTIs, and kidney stones who presented to [facility] ED for evaluation of cardiac arrest. As reported by EMS/family, patient had cardiac arrest, was asystole 1238 a.m., CPR initiated by family. Patient was initially anxious but was not having any complaints like chest pain or shortness of breath. EMS were on the scene within 5 minutes, CPR continued, patient was given IV fluid, epinephrine x2, became VFib so patient was shocked at 100 joules, Narcan given, became asystole again upon arrival at ER at 0108 hours, blood sugar upon arrival was 43, ROSC obtained at 0112 a.m. Family also reports that patient was depressed for the past 5 years, she has been staying in bed with decreased oral intake, had a fall injury in April resulting in arm and hip fracture. They denied any other significant past medical history. Patient was seen and evaluated in the ED, laboratory data shows WBC 8.8, hemoglobin 6.4, hematocrit 25.0, platelets 260, sodium 151, potassium 6.3, BUN 29, creatinine 2.52, GFR 24, glucose 146, anion gap 28.001, calcium 7.9, lactic acid 21.1 trending down to 15.2, magnesium 4.1, AST 2482, ALT 1430, troponin 2769, BNP 8.48, lipase 31, protein 4.8, albumin 2.7, blood pressure 151/22 trending up to 107/30, heart rate 106, temperature 94.2 F, O2 saturation 97% on ventilator. Head CT showed no acute intracranial abnormality. Patient was started on IV antibiotic regimen vancomycin, please see medication orders section in the computer. On my assessment, patient remains fully intubated, no diaphoresis, no diarrhea, vomiting, no fever. Patient was admitted for further evaluation and medical management. past surgical history; family denies family history: noncontributory past social history: patient lives with the family, denies any smoking, alcohol, drug use 09/06/25: patient seen in ICU. Patient is intubated, on Levophed o, off sedation. Head CT showed diffuse cerebral and cerebellar edema due to anoxic brain injury. neurology following, neurology stated poor prognosis. Kidney functions worsening. Patient's family states before admission patient has seizure-like activity, loss of consciousness which was on and off during the whole day. 09/07/25 40-year-old female in the ICU following cardiopulmonary arrest on 09/04/25, now with severe anoxic brain injury. * Intubated, mechanically ventilated * Off all sedation * No spontaneous movements * No response to pain * No brainstem reflexes: absent corneal, cough, gag, oculocephalic reflexes * Pupils 8 mm, fixed, nonreactive * Family updated todaypoor prognosis discussed, but family chooses FULL CODE and wants everything done Overnight: * Urine output 250 mL total/ 0.15ML/KG/HR * Sams in place, urine [id number] annia * Tube feeds restarted, residuals 15 mL, tolerated * Small bowel movement today * Yamileth-care and sacral wound care performed EEG completed at bedside today for assessment of anoxic injury. Hemodynamics: * On norepinephrine drip for shock Respiratory: * Lungs clear except mild right basal infiltrates Consults: Neurology and Nephrology actively following. 09/08/25 The patient remains critically ill, intubated, mechanically ventilated, and off all sedation since 09/05. Overnight and through today, there continues to be no neurologic improvement. * Mental status unchanged and remains unresponsive/comatose * EEG yesterday inconclusive. Neurology now ordering brain perfusion scan today for brain evaluation * On norepinephrine drip, titrated 8 - 4 mcg/min * CXR today: no major change, persistent bilateral mixed pulmonary opacities and probable small pleural effusions * Oliguria continues * Urine output overnight: 100 mL * Total UO last 24h: 200 mL * Nephrology discontinued Lasix 80 mg BID * Lasix drip started * IR consulted for tunneled dialysis catheter placed today * Plan for hemodialysis/[employer] likely tomorrow Patient remains in critical multiorgan dysfunction with severe irreversible anoxic brain injury, worsening renal failure requiring [employer] preparation, hemodynamic instability requiring vasopressors, and persistent respiratory failure on the ventilator. No neurologic recovery. Full code per family request. 09/09/25 The patient remains critically ill, intubated, mechanically ventilated, and off all sedation since 09/05. Overnight and through today, there continues to be no neurologic improvement. * Mental status unchanged and remains unresponsive/comatose * EEG yesterday inconclusive . Neurology now ordering brain perfusion scan today for brain evaluation * Oliguria continues * IR consulted tunneled dialysis catheter today * Plan for hemodialysis/[employer] likely tomorrow, patient developed b/l upper extremity rash near the right elbow and left antecubital fossa. Patient remains in critical multiorgan dysfunction with severe irreversible anoxic brain injury, worsening renal failure requiring [employer] preparation, hemodynamic instability requiring vasopressors, and persistent respiratory failure on the ventilator. No neurologic recovery.Full code per family request. 09/10/25 he patient continues to remain critically ill, unresponsive, mechanically ventilated, off all sedation, with severe anoxic brain injury and no signs of neurologic recovery. Family continues to request FULL CODE and continuation of all aggressive medical care. * Urine output: 0.16 mL/kg/hr (severely oliguric) * Yesterday: Hemodialysis with 700 mL ultrafiltration * Today: Plan for 11.5 L ultrafiltration * Tunneled right IJ permacath placed 09/09 * Lasix drip discontinued * Creatinine 5.9 (improving from 7.58) * Iron studies: * Iron 11 (low),TIBC 204 (low),Saturation 5.4% (severely low),Ferritin 132 * EEG: Severe diffuse cerebral dysfunction consistent with severe hypoxic metabolic encephalopathy * Poor prognosis confirmed by neurology * Brain perfusion nuclear scan scheduled today/tomorrow for brain evaluation * Diffuse purpuric rash spreading over upper extremities and lower extremities * Ecchymosis + petechiae + non-blanching lesions * Rash progression after Unasyn possible beta-lactam hypersensitivity * Unasyn discontinued today * Doxycycline started 09/11/25 The patient was examined at bedside this morning. She remains critically ill, mechanically ventilated, unresponsive, and off all sedation. Today's major update is the nuclear brain perfusion scan showing complete absence of intracranial perfusion with hot-nose sign, radiologically consistent with BRAIN , pending final neurologic confirmation. Family was updated about the extremely poor prognosis; however, they insist on FULL CODE and full aggressive care. * When repositioned, HR drops into 30s returned to baseline after stabilization * SpO2: 98% on FiO2 30% * No fever * Urine output: 0.05 mL/kg/hr (severe oliguria) * HD yesterday removed 1.5 L UF * HD planned again tomorrow 09/12/25 The patient was evaluated at bedside today. She remains intubated, mechanically ventilated, and entirely unresponsive with no sedation on board. Neurology officially confirmed BRAIN today based on: * Absent brainstem reflexes * No spontaneous respiration * Nuclear medicine brain perfusion scan showing complete absence of intracranial perfusion * Clinical brain examination performed and documented This was explained thoroughly to the family. Despite clear communication, the family continues to request FULL CODE status and all aggressive measures, including long-term life support and LTAC placement. A social service manager/Case Management consult has been placed for LTAC disposition per family request. 09/13/2025 The patient was evaluated today in the ICU. She remains intubated, mechanically ventilated, on Levophed, and unresponsive with no sedation. She is afebrile, normocardic, and with MAP maintained on pressors. Labs today showed drop in Hb to 6.9, for which 1 unit of PRBC was transfused. Creatinine and BUN continue to increase, for which she was dialyzed today. Stool sample were also to evaluate any possible bleeding. Brain has been declared by neurology, family wishes for her to remain FULL CODE at this time. Per Retarder Operator, the patient does not qualify for LTAC placement at this time. We will continue to monitor. 09/14/25 The patient was evaluated at bedside today. She remains intubated and mechanically ventilated, without sedation, unresponsive, and with previously confirmed brain (absent brain perfusion, absent brainstem reflexes, nuclear perfusion scan positive for brain ). She continues to exhibit no neurologic function. Family met at bedside today. The irreversible prognosis and confirmed brain status were reviewed again. Family is currently discussing goals of care but for now insists the patient remain FULL CODE with continued aggressive care, including ongoing mechanical ventilation and dialysis as needed. Overnight Interval Events Hemoglobin dropped to 6.6 1 unit PRBC transfused post-transfusion Hgb 8.7 Dialysis removed 2 L Rash continues to improve No major ventilatory changes Hemodynamics fluctuating but stable with vasopressors 09/15/25 The patient was evaluated at bedside today. She remains intubated, mechanically ventilated, unresponsive without sedation. Neurologically, she continues to exhibit no cerebral or brainstem activity, consistent with previously documented brain on nuclear medicine perfusion study. Important new finding today: Despite clinical brain , the patient demonstrates spinal reflex activity, including: * Muscle twitching in upper extremities * Brief fast fasciculatory movements upon touch * Reflexive limb motion during turning and repositioning These findings are consistent with spinal reflex arcs, not cortical activity, and do not contradict brain physiology. Family has not yet decided regarding withdrawal of care and continues to insist on full aggressive measures. A second neurologist is scheduled for repeat confirmatory brain- exam today. Hemodialysis ongoing, with UF goal 1 L. Rash that developed after Unasyn is improving.Thrombocytopenia worsened (platelets 23,000). Hemoglobin dropped again. 09/16/25 The patient was evaluated at bedside today. She remains intubated, mechanically ventilated, and completely unresponsive without sedation. Her neurologic status continues to show no meaningful clinical neurologic function, however spinal reflex activity (muscle twitching on touch and during repositioning) persists, consistent with spinal cordmediated reflexes, not brain activity. A second neurologist completed a full clinical examination yesterday including cold caloric testing, corneal reflex, gag, cough reflex, pain response, and oculovestibular function: * Some isolated spinal reflex muscle activity was noted * Neurologist conclusion: * Does NOT meet full clinical criteria for brain because minimal brainstem reflex activity was detected * However, overall exam consistent with irreversible catastrophic anoxic brain injury * Radiologic findings remain consistent with brain pattern * Prognosis: extremely poor, essentially non-survivable anoxic injury Family was updated at bedside. They are considering terminal weaning, but request more time and have decided for now to continue FULL CODE, FULL AGGRESSIVE CARE. Patient continues on mechanical ventilation, dialysis-dependent KIMI,and poor neurologic prognosis. 09/17/25 The patient was evaluated at bedside today. She remains intubated, mechanically ventilated, profoundly unresponsive, and off all sedation. Her neurologic status is unchanged , consistent with irreversible catastrophic anoxic brain injury, although she does not meet full clinical criteria for formal brain (as per second neurologist evaluation). She continues to demonstrate intermittent spinal reflex activity (muscle twitching with touch or turning), consistent with spinal cordmediated reflexes. The family continues to deliberate regarding terminal weaning. They have not yet decided on the timing and request additional time. Until a final decision is made, they request FULL CODE and full aggressive support. No new acute events overnight. Hemodynamics remain supported with norepinephrine drip, titrated to maintain SPP > 90 mmHg per updated neuro-critical care plan. The patient is scheduled for hemodialysis today, with UF per nephrology recommendations. No other major changes in clinical condition. 09/18/25 The patient underwent hemodialysis yesterday, with 1.9 liters removed, and tolerated the procedure without acute complications. She remains on norepinephrine (LEVOPHED) infusion 58 mcg/min with blood pressures fluctuating between 116/65 and 90/57 mmHg. Repeat chest X-ray today shows increased interstitial prominence, raising concern for mild pulmonary congestion vs early interstitial edema. Most importantly, after multiple family meetings and extensive discussion with neurology and , the family has decided on terminal weaning tomorrow at 11:00 AM. Full supportive measures and full code status will be continued until the time of terminal weaning. Objective vital signs Vital Sign Date Time Temp Pulse Resp B/P (MAP) Pulse Ox O2 Delivery O2 Flow Rate FiO2 09/18/25 09:47 90 15 116/65 (82) 98 30 09/18/25 08:00 99.3 99.3 09/18/25 08:00 Mechanical Ventilator+ Total Intake and Output 09/17/25 09/17/25 09/18/25 15:00 23:00 07:00 Intake Total 230 ml 400 ml Output Total 225 ml 350 ml Balance 5 ml 50 ml medications Current Medications Medications Dose Ordered Sig/Ese Route Start Time Stop Time Status Last Admin Dose Admin Diagnostic Test (Pha) 1 strip ACHS 09/04/25 07:00 09/18/25 06:20 1 STRIP Insulin Human Regular ACHS SC 09/04/25 07:00 09/17/25 22:00 2 UNITS Dextrose 50 ml UD PRN IV 09/04/25 05:15 Pantoprazole Sodium 40 mg DAILY IV 09/06/25 10:00 09/18/25 09:49 40 MG Enteral Nutritional Formula 1,000 ml 35ML/HR GT 09/06/25 11:00 09/17/25 20:05 1,000 ML Artificial Tears 1 drop Q4HP PRN EACHEYE 09/08/25 18:00 09/15/25 02:47 1 DROP Epoetin Nahun-epbx 10,000 unit MWF@2100 SC 09/09/25 21:00 Hold 09/14/25 21:02 10,000 UNIT Multi-Ingredient Ointment 1 applic DAILY TOP 09/10/25 10:00 09/18/25 09:57 1 APPLIC Doxycycline Hyclate 100 ml @ 50 mls/hr Q12H IV 09/10/25 11:00 09/17/25 23:21 50 MLS/HR Norepinephrine Bitartrate 250 ml @ 3.75 mls/hr Q24H IV 09/15/25 08:45 09/17/25 18:32 13.125 MLS/HR Examination General Intubated, ventilated, unresponsive, no sedation. Neuro * GCS 3T * Pupils fixed/dilated * No corneal, gag, cough reflex * No oculocephalic reflex * Cold caloric: negative bilaterally * Some spinal reflex muscle twitching * No purposeful movement * No response to pain Respiratory Even chest rise; clear to auscultation; no accessory muscle use due to no neurologic drive. Cardiovascular Regular rhythm; labile BP; distal pulses present. GI Soft abdomen; tolerating tube feeds; [address]; oliguric. Skin Rash improving; sacral area healing. Extremities Warm; mild dependent edema. Lines * Endotracheal tube * OG tube * Central line (femoral) * Right IJ tunneled dialysis catheter * Sams catheter laboratory and microbiology Laboratory Tests 09/18/25 08:00 09/18/25 03:34 Test 09/18/25 03:34 Range/Units Serum Glucose 111 H 74-106 mg/dL Microbiology Date/Time Source Procedure Growth Status 09/04/25 23:21 Urine - Sams Port Urine Culture - Final Complete 09/04/25 10:00 Nose MRSA Screen - Final Complete 09/04/25 04:22 Sputum Expectorated Sputum Gram Stain - Final Complete 09/04/25 04:22 Respiratory Culture - Final Staphylococcus aureus Complete 09/04/25 01:40 Blood Blood Culture - Final NO GROWTH AFTER 5 DAYS OF INCUBATION. Complete Problem List/Assessment/Plan Problem List/Assessment/Plan ASSESSMENT /PLAN SYSTEM HODGE Neurology #Catastrophic, irreversible, severe anoxic brain injury; extremely poor prognosis Metabolic encephalopathy (secondary to anoxic injury) * Imaging consistent with brain * Clinical exam does NOT meet full brain- criteria (minimal brainstem reflex activity) * Spinal reflexes present * Prognosis: terminal # History of anxiety # Questionable Seizure like activity -Neurology on board - Neurology stated poor prognosis * Continue neuro checks Q1H * Maintain normothermia * Avoid hypotension/hypoxia * Nuclear brain perfusion scan consistent with brain * EEG: Severe diffuse cerebral dysfunction consistent with severe hypoxic metabolic encephalopathy For now full code. * Family fully understands prognosis and has chosen comfort-focused withdrawal tomorrow at 11 AM * Second neurologist exam does not meet brain criteria but poor prognosis, family updated * Maintain current ventilatory support Cardiology #Postcardiac arrest state (VF arrest - ROSC) #Mixed cardiogenic + septic shock on norepinephrine # heart failure with reduced ejection fraction likely post cardiac arrest # Dyslipidemia # Non ST-elevation myocardial infarction likely type 2 status post cardiac arrest, type 1 not ruled out -Head CT -Ekg -Echo : Conclusion MODERATELY DILATED RV AND IS HYPOKINETIC DYSKINESIS OF IVS RVSP IS 40 MM OF HG AND IS HIGH STUDY CONFIRM RV FAILURE GLOBAL LV HYPOKINESIS LV EF IS 40% AND IS REDUCED NORMAL VALVES NO EFFUSION Maintain SPP (Systolic Perfusion Pressure) > 90 mmHg at all times. * Titrate norepinephrine (LEVOPHED) drip to maintain SPP > 90 mmHg. * Monitor for multi-organ shock progression.* Avoid hypotension to preserve brain perfusion * Cardiology involved * Daily EKG * Trend troponins Given anoxic brain injury, the patient is not a candidate for invasive cardiac work-up as per cardiology continue conservative medical management. * Bradycardia episodes with repositioning move gently Respiratory #Acute hypoxic respiratory failure requiring mechanical ventilation * AC/VC: RR 15, TV 450, PEEP 5, FiO2 30% * VAP bundle * Daily CXR * Oral care Q4H * SBT contraindicated Infectious Disease #MSSA / possible aspiration pneumonia * STOPPED Unasyn today due to allergic rash * continue doxycycline * Continue to monitor rash progression * Monitor sputum, blood, urine cultures * COVID/Flu negative * WBC (mild improvement) Hematology Microcytic anemia # severe anemia requiring blood transfusion -2 unit of PRBC transfused Started on IV IRON # coagulopathy likely due to sepsis Monitor Thrombocytopenia (Plt 124), resolved * * Hgb stable at 7.5 , Discontinued Heparin, transfuse only if <7 * Platelets normal * DVT prophylaxis: Heparin held due to anemia * Use SCDs Renal * KIMI stage 3 on solitary kidney *Dialysis-dependent renal failure * Continue daily evaluation for kidney replacement therapy. * Avoid nephrotoxins * Daily BMP, Mg, Phos hyperkalemia Corrected # hypernatremia -initially corrected with a half NS # metabolic acidosis due to sepsis Monitor ABG # respiratory alkalosis Decrease respiratory rate to 12 # hypomagnesemia Monitor Urology # complicated urinary tract infection -on antibiotics # Punctate nonobstructing right renal calculi. Seen on ultrasound # Left nephrectomy. Seen on ultrasound GI Shock liver (AST/ALT markedly elevated) now improving * Continue Nepro tube feeds @ 35 mL/hr * Check residuals Q4H * PPI for ulcer prophylaxis * Monitor stool output Endocrine * Insulin ACHS * Maintain BG [id number] Skin * Stage 1 sacral ulcer * Wound care following * Reposition Q2H * Beta-lactam hypersensitivity improving Ensure no heparin products (including flushes) STOP beta-lactams (done) Start doxycycline (done) Warm compresses to affected areas Reposition Q2H to reduce pressure contribution NO signs of cellulitis (no warmth) Topical emollients (Aquaphor) to reduce skin breakdown Monitor platelets daily OPHTHALMOLOGY * Conjunctival injection, swollen eyelids * Start Lacri-lube eye drops Q6H LINES / TUBES * ETT (09/04) * OG tube * Left femoral central line (09/04) * Sams catheter Right IJ tunneled dialysis catheter (09/09) * Daily line necessity review PROPHYLAXIS * DVT: SCDs only * GI: Pantoprazole * Ulcer: Q2H turns * VAP: oral care, CHG, HOB elevation SOCIAL WORK / FAMILY SUPPORT * Family updated extensively today Family meeting held * TERMINAL WEANING SCHEDULED FOR 11:00 AM TOMORROW * Request continuation of FULL CODE & full aggressive care for now * Social work available for support CODE STATUS FULL CODE Family updated today; despite detailed prognosis counseling, they request full aggressive measures and full code total time spent >20 mins CRITICAL CARE TIME 83 minutes of critical care time spent today, excluding procedure time. . DISCUSSION WITH ATTENDING Case reviewed in detail with attending physician Dr Salcido. Management plan jointly agreed upon. including the clinical presentation, diagnostic workup, and comprehensive management plan. The patient's family was present for the discussion and demonstrated understanding of his condition and the proposed plan. Plan discussed with: Spouse, Daughter, Other (RN) My Orders My Orders Orders - FRANCIS PRESSLEY RESIDENT Procedure Category Date Status Time Chest Xray 1 View XY 09/18/25 Resulted 04:00 Abg W/ Co-Ox RT 09/18/25 Logged 04:00 Dietary Evaluation Review Comments: 1. nepro 35/hr providing 68g pro, 1487kcal, 611ml free water, meeting 107% energy needs, 80% protein needs 2. Increase amount of Protein support for wound healing when/if pt's kidney function impvoes. F/U and reassess when pt is off vent and PRN. Expected Outcomes/Goals: Adequate nutrition support for being on mechanical ventilation CC Plasma Assessment Blood Product Administration S: 06:05 FRANCIS PRESSLEY RESIDENT Sep 18, 2025 10:45
--- NOTE | 2025-09-18 14:47 | DVHPN2 ---
Progress Note - Dictate Date Seen: Sep 18, 2025 Has the PT tested + for MRSA If YES, has PT been informed?: No Medical Necessity Reason Pt with a Central, PICC or Fol: Yes The following are medically ne: Central Line, Sams Catheter Subjective Patient was seen and evaluated in follow up in the ICU. Patient is intubated on ventilator. FiO2 30%. Patient remains off sedation. Patient has intermittent spinal reflex activity (muscle twitching with touch or turning), consistent with spinal cordmediated reflexes. Patient's family is deliberating e a decision regarding terminal weaning. WBC 10.9, HGB 8.4, HCT 26.5, BUN 43, [employer] 3.38, AST 152, ALT 74. Chest x-ray shows increased interstitial prominence. vital signs Vital Sign Date Time Temp Pulse Resp B/P (MAP) Pulse Ox O2 Delivery O2 Flow Rate FiO2 09/18/25 13:30 118/69 09/18/25 13:21 89 14 98 30 09/18/25 10:00 Mechanical Ventilator+ 09/18/25 08:00 99.3 99.3 Total Intake and Output 09/17/25 09/17/25 09/18/25 15:00 23:00 07:00 Intake Total 230 ml 400 ml Output Total 225 ml 350 ml Balance 5 ml 50 ml medications Current Medications Medications Dose Ordered Sig/Ese Route Start Time Stop Time Status Last Admin Dose Admin Diagnostic Test (Pha) 1 strip ACHS 09/04/25 07:00 09/18/25 12:11 1 STRIP Insulin Human Regular ACHS SC 09/04/25 07:00 09/18/25 11:50 2 UNITS Dextrose 50 ml UD PRN IV 09/04/25 05:15 Pantoprazole Sodium 40 mg DAILY IV 09/06/25 10:00 09/18/25 09:49 40 MG Enteral Nutritional Formula 1,000 ml 35ML/HR GT 09/06/25 11:00 09/17/25 20:05 1,000 ML Artificial Tears 1 drop Q4HP PRN EACHEYE 09/08/25 18:00 09/15/25 02:47 1 DROP Epoetin Nahun-epbx 10,000 unit MWF@2100 SC 09/09/25 21:00 Hold 09/14/25 21:02 10,000 UNIT Multi-Ingredient Ointment 1 applic DAILY TOP 09/10/25 10:00 09/18/25 09:57 1 APPLIC Doxycycline Hyclate 100 ml @ 50 mls/hr Q12H IV 09/10/25 11:00 09/18/25 11:50 50 MLS/HR Norepinephrine Bitartrate 250 ml @ 3.75 mls/hr Q24H IV 09/15/25 08:45 09/18/25 13:30 11.25 MLS/HR objective GENERAL: Ill appearing, intubated on ventilator. EYES: PERRL, EOMI. Anicteric. HENT: Moist mucous membranes. LUNGS: Decreased breath sounds. CARDIOVASCULAR: Regular rate and rhythm. ABDOMEN: Soft, nontender and nondistended. EXTREMITIES: No edema. SKIN: Warm, dry. laboratory and microbiology Laboratory Tests 09/18/25 08:00 09/18/25 03:34 Test 09/18/25 03:34 Range/Units Serum Glucose 111 H 74-106 mg/dL Problem List Cardiopulmonary arrest with ROSC. Ventricular fibrillation arrest with defibrillation at 100J. Non ST-elevation myocardial infarction. Acute anemia status post blood transfusion (-FOBT). Acute hypoxic respiratory failure. Likely KIMI on CKD. Left nephrectomy. Shocked Liver. Dyslipidemia, newly diagnosed. Cerebral and cerebellar edema, anoxic brain injury. ? Suspected PE with RV failure and PAH. Assessment/Plan Continued all current supportive medical care. IV antibiotics as ordered. GI prophylactics. Vasopressors for hemodynamic support. Additional plan as per the hospital course. Critical care time of 45 minutes provided to include time spent evaluation of patient at bedside, when appropriate patient/family education for diagnosis, treatment plan, review of pertinent medical information and discussion of care with specialty providers and PCP. Mechanical ventilator parameters, treatment and adjustments have personally been reviewed by me and treatment plan by hand salter has also been reviewed. Dietary Evaluation Review Comments: 1. nepro 35/hr providing 68g pro, 1487kcal, 611ml free water, meeting 107% energy needs, 80% protein needs 2. Increase amount of Protein support for wound healing when/if pt's kidney function impvoes. F/U and reassess when pt is off vent and PRN. Expected Outcomes/Goals: Adequate nutrition support for being on mechanical ventilation Plan discussed with: Other CC Plasma Assessment Blood Product Administration S: 06:05 RISHI SOARES MD Sep 18, 2025 13:54
--- NOTE | 2025-09-18 16:50 | DVHPN2 ---
Progress Note Date Seen: Sep 18, 2025 Has the PT tested + for MRSA If YES, has PT been informed?: No Medical Necessity Reason Pt with a Central, PICC or Fol: Yes The following are medically ne: Central Line, Sams Catheter Subjective Review of Systems: Deferred Objective vital signs Vital Sign Date Time Temp Pulse Resp B/P (MAP) Pulse Ox O2 Delivery O2 Flow Rate FiO2 09/18/25 16:32 90 14 118/71 (87) 99 30 09/18/25 14:00 Mechanical Ventilator+ 09/18/25 12:00 98.6 98.6 Total Intake and Output 09/17/25 09/17/25 09/18/25 15:00 23:00 07:00 Intake Total 230 ml 400 ml Output Total 225 ml 350 ml Balance 5 ml 50 ml medications Current Medications Medications Dose Ordered Sig/Ese Route Start Time Stop Time Status Last Admin Dose Admin Diagnostic Test (Pha) 1 strip ACHS 09/04/25 07:00 09/18/25 12:11 1 STRIP Insulin Human Regular ACHS SC 09/04/25 07:00 09/18/25 11:50 2 UNITS Dextrose 50 ml UD PRN IV 09/04/25 05:15 Pantoprazole Sodium 40 mg DAILY IV 09/06/25 10:00 09/18/25 09:49 40 MG Enteral Nutritional Formula 1,000 ml 35ML/HR GT 09/06/25 11:00 09/17/25 20:05 1,000 ML Artificial Tears 1 drop Q4HP PRN EACHEYE 09/08/25 18:00 09/15/25 02:47 1 DROP Epoetin Nahun-epbx 10,000 unit MWF@2100 CT 09/09/25 21:00 Hold 09/14/25 21:02 10,000 UNIT Multi-Ingredient Ointment 1 applic DAILY TOP 09/10/25 10:00 09/18/25 09:57 1 APPLIC Doxycycline Hyclate 100 ml @ 50 mls/hr Q12H IV 09/10/25 11:00 09/18/25 11:50 50 MLS/HR Norepinephrine Bitartrate 250 ml @ 3.75 mls/hr Q24H IV 09/15/25 08:45 09/18/25 13:30 11.25 MLS/HR Examination: GENERAL:Abnormal, CVS:Normal, ABDOMEN:Normal, NEURO:Abnormal laboratory and microbiology Laboratory Tests 09/18/25 08:00 09/18/25 03:34 Test 09/18/25 03:34 Range/Units Serum Glucose 111 H 74-106 mg/dL Microbiology Date/Time Source Procedure Growth Status 09/04/25 23:21 Urine - Sams Port Urine Culture - Final Complete 09/04/25 10:00 Nose MRSA Screen - Final Complete 09/04/25 04:22 Sputum Expectorated Sputum Gram Stain - Final Complete 09/04/25 04:22 Respiratory Culture - Final Staphylococcus aureus Complete 09/04/25 01:40 Blood Blood Culture - Final NO GROWTH AFTER 5 DAYS OF INCUBATION. Complete Problem List/Assessment/Plan Problem List/Assessment/Plan KIMI, from [facility] (baseline not available), due to cardiac arrest, FeNa > 2% requiring hemodialysis Acute respiratory failure, intubated on ventilator Status post cardiac arrest Anoxic encephalopathy Cardiogenic/septic shock NSTEMI Plan/recommendation: pending family meeting tomorrow, treatment of dialysis pending family goals Epogen 39675 subQ 3 times weekly Strict I&Os Monitor urinary output ,improved Vasopressor per primary team Avoid nephrotoxic medication Ct head--anoxic encephalopathy EEG/perfusion scan showed anoxic brain injury, defer to neurology and primary for jail care and management from renal standpoint no renal recovery noted Plan discussed with: Other Dietary Evaluation Review Comments: 1. nepro 35/hr providing 68g pro, 1487kcal, 611ml free water, meeting 107% energy needs, 80% protein needs 2. Increase amount of Protein support for wound healing when/if pt's kidney function impvoes. F/U and reassess when pt is off vent and PRN. Expected Outcomes/Goals: Adequate nutrition support for being on mechanical ventilation CC Plasma Assessment Blood Product Administration S: 06:05 DAXA NG MD Sep 18, 2025 16:50
[2025-09-19] VITALS (108 sets, daily range): BP systolic 77–130; BP diastolic 37–76; PULSE 69–103; RESP 11–34; TEMP 97.7–98.8; O2SAT 98–100
[2025-09-19 04:24] LABS: Hemoglobin 8.2 g/dL (12.2-16.2)
[2025-09-19 04:26] LABS: Hematocrit 26.3 % (36.0-46.0); Mean Corpuscular Hemoglobin 22.9 pg (28.0-32.0); Mean Corpuscular Volume 73.6 fL (80.0-100.0); Nucleated Red Blood Cells % 0.2 %
[2025-09-19 04:35] LABS: Anion Gap 14 (5-15); BUN/Creatinine Ratio 14.3 (10.0-20.0); Carbon Dioxide 28 mmol/L (20-31); Chloride 102 mmol/L (98-107); Glucose 101 mg/dL (74-106); Sodium 144 mmol/L (136-145); Total Protein 5.9 g/dL (5.7-8.2)
[2025-09-19 04:36] LABS: Bilirubin, Total 0.4 mg/dL (0.2-1.0)
[2025-09-19 04:41] LABS: Alanine Aminotransferase 58 U/L (7-40); Albumin 2.8 g/dL (3.2-4.8); Alkaline Phosphatase 360 U/L (46-116); Blood Urea Nitrogen 64 mg/dL (9-23); Calcium 10.7 mg/dL (8.7-10.4); Potassium 5.4 mmol/L (3.5-5.1)
--- NOTE | 2025-09-19 05:40 | DVH ---
CHEST RADIOGRAPH Indication: Acute hypoxic respiratory failure Technique: Single frontal view of the chest was obtained COMPARISON: XY CHEST XRAY 1 VIEW on DOS: 09/18/25, XY CHEST XRAY 1 VIEW on DOS: 09/17/25, XY CHEST XRAY 1 VIEW on DOS: 09/16/25, XY CHEST XRAY 1 VIEW on DOS: 09/15/25, XY CHEST XRAY 1 VIEW on DOS: 09/14/25 FINDINGS: Lines and Tubes: Unchanged. Lungs: Clear Pleura: No effusion. No pneumothorax. Cardiomediastinal contours: Unremarkable Bones: Unremarkable IMPRESSION: 1. No acute cardiopulmonary disease. 2. Lines and tubes unchanged.
[2025-09-19 07:08] LABS: Base Excess 1.8 mmol/L (-2.0-3.0)
[2025-09-19] MEDS: SODIUM ZIRCONIUM CYCL 10 GM PAK PO ONE (07:24)
--- NOTE | 2025-09-19 12:23 | DVHPN2 ---
Progress Note Date Seen: Sep 19, 2025 Has the PT tested + for MRSA If YES, has PT been informed?: No Medical Necessity Reason Pt with a Central, PICC or Fol: Yes The following are medically ne: Central Line, Sams Catheter Objective vital signs Vital Sign Date Time Temp Pulse Resp B/P (MAP) Pulse Ox O2 Delivery O2 Flow Rate FiO2 09/19/25 09:36 30 09/19/25 09:36 24 100 Mechanical Ventilator+ 09/19/25 09:36 70 09/19/25 09:30 112/65 (81) 09/19/25 08:00 98.6 98.6 Total Intake and Output 09/18/25 09/18/25 09/19/25 15:00 23:00 07:00 Intake Total 363 ml 200 ml Output Total 325 ml 650 ml Balance 38 ml -450 ml medications Current Medications Medications Dose Ordered Sig/Ese Route Start Time Stop Time Status Last Admin Dose Admin Diagnostic Test (Pha) 1 strip ACHS 09/04/25 07:00 09/19/25 10:51 1 STRIP Insulin Human Regular ACHS SC 09/04/25 07:00 09/18/25 11:50 2 UNITS Dextrose 50 ml UD PRN IV 09/04/25 05:15 Pantoprazole Sodium 40 mg DAILY IV 09/06/25 10:00 09/19/25 07:24 40 MG Enteral Nutritional Formula 1,000 ml 35ML/HR GT 09/06/25 11:00 09/17/25 20:05 1,000 ML Artificial Tears 1 drop Q4HP PRN EACHEYE 09/08/25 18:00 09/15/25 02:47 1 DROP Epoetin Nahun-epbx 10,000 unit MWF@2100 AR 09/09/25 21:00 09/18/25 21:47 10,000 UNIT Multi-Ingredient Ointment 1 applic DAILY TOP 09/10/25 10:00 09/19/25 07:24 1 APPLIC Doxycycline Hyclate 100 ml @ 50 mls/hr Q12H IV 09/10/25 11:00 09/19/25 07:47 50 MLS/HR Norepinephrine Bitartrate 250 ml @ 3.75 mls/hr Q24H IV 09/15/25 08:45 09/18/25 13:30 11.25 MLS/HR laboratory and microbiology Laboratory Tests 09/19/25 03:14 Test 09/19/25 03:14 Range/Units Serum Glucose 101 74-106 mg/dL Microbiology Date/Time Source Procedure Growth Status 09/04/25 23:21 Urine - Sams Port Urine Culture - Final Complete 09/04/25 10:00 Nose MRSA Screen - Final Complete 09/04/25 04:22 Sputum Expectorated Sputum Gram Stain - Final Complete 09/04/25 04:22 Respiratory Culture - Final Staphylococcus aureus Complete 09/04/25 01:40 Blood Blood Culture - Final NO GROWTH AFTER 5 DAYS OF INCUBATION. Complete Problem List/Assessment/Plan Problem List/Assessment/Plan KIMI, from [facility] due to cardiac arrest requiring hemodialysis Acute respiratory failure, intubated on ventilator Status post cardiac arrest Anoxic encephalopathy Cardiogenic/septic shock NSTEMI Plan/recommendation: next HD is tentative on Sunday lokel TID due to hyperkalemia Epogen 27538 subQ 3 times weekly Strict I&Os nepro tube feeding, phos , pth level Monitor urinary output ,improved Vasopressor per primary team Avoid nephrotoxic medication Ct head--anoxic encephalopathy EEG/perfusion scan showed anoxic brain injury, defer to neurology and primary for group home care and management from renal standpoint no renal recovery noted Plan discussed with: Other My Orders My Orders Orders - DAXA NG MD Procedure Category Date Status Time Sodium Zirconium PHA 09/19/25 Transmitted Cyclosilicate 22:00 Basic Metabolic Panel LAB 09/20/25 Verified 04:00 Phosphorus LAB 09/20/25 Verified 04:00 Dietary Evaluation Review Comments: 1. nepro 35/hr providing 68g pro, 1487kcal, 611ml free water, meeting 107% energy needs, 80% protein needs 2. Increase amount of Protein support for wound healing when/if pt's kidney function impvoes. F/U and reassess when pt is off vent and PRN. Expected Outcomes/Goals: Adequate nutrition support for being on mechanical ventilation CC Plasma Assessment Blood Product Administration S: 06:05 DAXA NG MD Sep 19, 2025 12:23
[2025-09-19] MEDS: BUMETANIDE 1mg/4ml VIAL (0.25mg/ml) IV SCH ×2 (12:40→21:19)
--- NOTE | 2025-09-19 13:24 | DVHPNRES ---
Progress Note Date Seen: Sep 19, 2025 Resident Creating Document: JUANA HUDSON RESIDENT Has the PT tested + for MRSA If YES, has PT been informed?: No Medical Necessity Reason Pt with a Central, PICC or Fol: Yes The following are medically ne: Central Line, Sams Catheter Subjective Review of Systems The patient is a 40-year-old female with past medical history of anxiety, UTIs, and kidney stones who presented to [facility] ED for evaluation of cardiac arrest. As reported by EMS/family, patient had cardiac arrest, was asystole 1238 a.m., CPR initiated by family. Patient was initially anxious but was not having any complaints like chest pain or shortness of breath. EMS were on the scene within 5 minutes, CPR continued, patient was given IV fluid, epinephrine x2, became VFib so patient was shocked at 100 joules, Narcan given, became asystole again upon arrival at ER at 0108 hours, blood sugar upon arrival was 43, ROSC obtained at 0112 a.m. Family also reports that patient was depressed for the past 5 years, she has been staying in bed with decreased oral intake, had a fall injury in April resulting in arm and hip fracture. They denied any other significant past medical history. Patient was seen and evaluated in the ED, laboratory data shows WBC 8.8, hemoglobin 6.4, hematocrit 25.0, platelets 260, sodium 151, potassium 6.3, BUN 29, creatinine 2.52, GFR 24, glucose 146, anion gap 28.001, calcium 7.9, lactic acid 21.1 trending down to 15.2, magnesium 4.1, AST 2482, ALT 1430, troponin 2769, BNP 8.48, lipase 31, protein 4.8, albumin 2.7, blood pressure 151/22 trending up to 107/30, heart rate 106, temperature 94.2 F, O2 saturation 97% on ventilator. Head CT showed no acute intracranial abnormality. Patient was started on IV antibiotic regimen vancomycin, please see medication orders section in the computer. On my assessment, patient remains fully intubated, no diaphoresis, no diarrhea, vomiting, no fever. Patient was admitted for further evaluation and medical management. past surgical history; family denies family history: noncontributory past social history: patient lives with the family, denies any smoking, alcohol, drug use 09/06/25: patient seen in ICU. Patient is intubated, on Levophed o, off sedation. Head CT showed diffuse cerebral and cerebellar edema due to anoxic brain injury. neurology following, neurology stated poor prognosis. Kidney functions worsening. Patient's family states before admission patient has seizure-like activity, loss of consciousness which was on and off during the whole day. 09/07/25 40-year-old female in the ICU following cardiopulmonary arrest on 09/04/25, now with severe anoxic brain injury. * Intubated, mechanically ventilated * Off all sedation * No spontaneous movements * No response to pain * No brainstem reflexes: absent corneal, cough, gag, oculocephalic reflexes * Pupils 8 mm, fixed, nonreactive * Family updated todaypoor prognosis discussed, but family chooses FULL CODE and wants everything done Overnight: * Urine output 250 mL total/ 0.15ML/KG/HR * Sams in place, urine [id number] annia * Tube feeds restarted, residuals 15 mL, tolerated * Small bowel movement today * Yamileth-care and sacral wound care performed EEG completed at bedside today for assessment of anoxic injury. Hemodynamics: * On norepinephrine drip for shock Respiratory: * Lungs clear except mild right basal infiltrates Consults: Neurology and Nephrology actively following. 09/08/25 The patient remains critically ill, intubated, mechanically ventilated, and off all sedation since 09/05. Overnight and through today, there continues to be no neurologic improvement. * Mental status unchanged and remains unresponsive/comatose * EEG yesterday inconclusive. Neurology now ordering brain perfusion scan today for brain evaluation * On norepinephrine drip, titrated 8 - 4 mcg/min * CXR today: no major change, persistent bilateral mixed pulmonary opacities and probable small pleural effusions * Oliguria continues * Urine output overnight: 100 mL * Total UO last 24h: 200 mL * Nephrology discontinued Lasix 80 mg BID * Lasix drip started * IR consulted for tunneled dialysis catheter placed today * Plan for hemodialysis/FAMILY EDUCATOR likely tomorrow Patient remains in critical multiorgan dysfunction with severe irreversible anoxic brain injury, worsening renal failure requiring FAMILY EDUCATOR preparation, hemodynamic instability requiring vasopressors, and persistent respiratory failure on the ventilator. No neurologic recovery. Full code per family request. 09/09/25 The patient remains critically ill, intubated, mechanically ventilated, and off all sedation since 09/05. Overnight and through today, there continues to be no neurologic improvement. * Mental status unchanged and remains unresponsive/comatose * EEG yesterday inconclusive . Neurology now ordering brain perfusion scan today for brain evaluation * Oliguria continues * IR consulted tunneled dialysis catheter today * Plan for hemodialysis/FAMILY EDUCATOR likely tomorrow, patient developed b/l upper extremity rash near the right elbow and left antecubital fossa. Patient remains in critical multiorgan dysfunction with severe irreversible anoxic brain injury, worsening renal failure requiring FAMILY EDUCATOR preparation, hemodynamic instability requiring vasopressors, and persistent respiratory failure on the ventilator. No neurologic recovery.Full code per family request. 09/10/25 he patient continues to remain critically ill, unresponsive, mechanically ventilated, off all sedation, with severe anoxic brain injury and no signs of neurologic recovery. Family continues to request FULL CODE and continuation of all aggressive medical care. * Urine output: 0.16 mL/kg/hr (severely oliguric) * Yesterday: Hemodialysis with 700 mL ultrafiltration * Today: Plan for 11.5 L ultrafiltration * Tunneled right IJ permacath placed 09/09 * Lasix drip discontinued * Creatinine 5.9 (improving from 7.58) * Iron studies: * Iron 11 (low),TIBC 204 (low),Saturation 5.4% (severely low),Ferritin 132 * EEG: Severe diffuse cerebral dysfunction consistent with severe hypoxic metabolic encephalopathy * Poor prognosis confirmed by neurology * Brain perfusion nuclear scan scheduled today/tomorrow for brain evaluation * Diffuse purpuric rash spreading over upper extremities and lower extremities * Ecchymosis + petechiae + non-blanching lesions * Rash progression after Unasyn possible beta-lactam hypersensitivity * Unasyn discontinued today * Doxycycline started 09/11/25 The patient was examined at bedside this morning. She remains critically ill, mechanically ventilated, unresponsive, and off all sedation. Today's major update is the nuclear brain perfusion scan showing complete absence of intracranial perfusion with hot-nose sign, radiologically consistent with BRAIN , pending final neurologic confirmation. Family was updated about the extremely poor prognosis; however, they insist on FULL CODE and full aggressive care. * When repositioned, HR drops into 30s returned to baseline after stabilization * SpO2: 98% on FiO2 30% * No fever * Urine output: 0.05 mL/kg/hr (severe oliguria) * HD yesterday removed 1.5 L UF * HD planned again tomorrow 09/12/25 The patient was evaluated at bedside today. She remains intubated, mechanically ventilated, and entirely unresponsive with no sedation on board. Neurology officially confirmed BRAIN today based on: * Absent brainstem reflexes * No spontaneous respiration * Nuclear medicine brain perfusion scan showing complete absence of intracranial perfusion * Clinical brain examination performed and documented This was explained thoroughly to the family. Despite clear communication, the family continues to request FULL CODE status and all aggressive measures, including long-term life support and LTAC placement. A social director/Case Management consult has been placed for LTAC disposition per family request. 09/13/2025 The patient was evaluated today in the ICU. She remains intubated, mechanically ventilated, on Levophed, and unresponsive with no sedation. She is afebrile, normocardic, and with MAP maintained on pressors. Labs today showed drop in Hb to 6.9, for which 1 unit of PRBC was transfused. Creatinine and BUN continue to increase, for which she was dialyzed today. Stool sample were also to evaluate any possible bleeding. Brain has been declared by neurology, family wishes for her to remain FULL CODE at this time. Per Advance Agent, the patient does not qualify for LTAC placement at this time. We will continue to monitor. 09/14/25 The patient was evaluated at bedside today. She remains intubated and mechanically ventilated, without sedation, unresponsive, and with previously confirmed brain (absent brain perfusion, absent brainstem reflexes, nuclear perfusion scan positive for brain ). She continues to exhibit no neurologic function. Family met at bedside today. The irreversible prognosis and confirmed brain status were reviewed again. Family is currently discussing goals of care but for now insists the patient remain FULL CODE with continued aggressive care, including ongoing mechanical ventilation and dialysis as needed. Overnight Interval Events Hemoglobin dropped to 6.6 1 unit PRBC transfused post-transfusion Hgb 8.7 Dialysis removed 2 L Rash continues to improve No major ventilatory changes Hemodynamics fluctuating but stable with vasopressors 09/15/25 The patient was evaluated at bedside today. She remains intubated, mechanically ventilated, unresponsive without sedation. Neurologically, she continues to exhibit no cerebral or brainstem activity, consistent with previously documented brain on nuclear medicine perfusion study. Important new finding today: Despite clinical brain , the patient demonstrates spinal reflex activity, including: * Muscle twitching in upper extremities * Brief fast fasciculatory movements upon touch * Reflexive limb motion during turning and repositioning These findings are consistent with spinal reflex arcs, not cortical activity, and do not contradict brain physiology. Family has not yet decided regarding withdrawal of care and continues to insist on full aggressive measures. A second neurologist is scheduled for repeat confirmatory brain- exam today. Hemodialysis ongoing, with UF goal 1 L. Rash that developed after Unasyn is improving.Thrombocytopenia worsened (platelets 23,000). Hemoglobin dropped again. 09/16/25 The patient was evaluated at bedside today. She remains intubated, mechanically ventilated, and completely unresponsive without sedation. Her neurologic status continues to show no meaningful clinical neurologic function, however spinal reflex activity (muscle twitching on touch and during repositioning) persists, consistent with spinal cordmediated reflexes, not brain activity. A second neurologist completed a full clinical examination yesterday including cold caloric testing, corneal reflex, gag, cough reflex, pain response, and oculovestibular function: * Some isolated spinal reflex muscle activity was noted * Neurologist conclusion: * Does NOT meet full clinical criteria for brain because minimal brainstem reflex activity was detected * However, overall exam consistent with irreversible catastrophic anoxic brain injury * Radiologic findings remain consistent with brain pattern * Prognosis: extremely poor, essentially non-survivable anoxic injury Family was updated at bedside. They are considering terminal weaning, but request more time and have decided for now to continue FULL CODE, FULL AGGRESSIVE CARE. Patient continues on mechanical ventilation, dialysis-dependent KIMI,and poor neurologic prognosis. 09/17/25 The patient was evaluated at bedside today. She remains intubated, mechanically ventilated, profoundly unresponsive, and off all sedation. Her neurologic status is unchanged , consistent with irreversible catastrophic anoxic brain injury, although she does not meet full clinical criteria for formal brain (as per second neurologist evaluation). She continues to demonstrate intermittent spinal reflex activity (muscle twitching with touch or turning), consistent with spinal cordmediated reflexes. The family continues to deliberate regarding terminal weaning. They have not yet decided on the timing and request additional time. Until a final decision is made, they request FULL CODE and full aggressive support. No new acute events overnight. Hemodynamics remain supported with norepinephrine drip, titrated to maintain SPP > 90 mmHg per updated neuro-critical care plan. The patient is scheduled for hemodialysis today, with UF per nephrology recommendations. No other major changes in clinical condition. 09/18/25 The patient underwent hemodialysis yesterday, with 1.9 liters removed, and tolerated the procedure without acute complications. She remains on norepinephrine (LEVOPHED) infusion 58 mcg/min with blood pressures fluctuating between 116/65 and 90/57 mmHg. Repeat chest X-ray today shows increased interstitial prominence, raising concern for mild pulmonary congestion vs early interstitial edema. Most importantly, after multiple family meetings and extensive discussion with neurology and , the family has decided on terminal weaning tomorrow at 11:00 AM. Full supportive measures and full code status will be continued until the time of terminal weaning. 09/19/25: Patient seen and examined at bedside, had a long family discussion today, patient who is her POA was absent due to work, patient's family was determined and willing after her father coming from [place], Objective vital signs Vital Sign Date Time Temp Pulse Resp B/P (MAP) Pulse Ox O2 Delivery O2 Flow Rate FiO2 09/19/25 12:40 110/64 09/19/25 12:23 15 100 Mechanical Ventilator+ 30 30 09/19/25 12:23 72 09/19/25 12:00 98.8 98.8 Total Intake and Output 09/18/25 09/18/25 09/19/25 15:00 23:00 07:00 Intake Total 363 ml 200 ml Output Total 325 ml 650 ml Balance 38 ml -450 ml medications Current Medications Medications Dose Ordered Sig/Ese Route Start Time Stop Time Status Last Admin Dose Admin Diagnostic Test (Pha) 1 strip ACHS 09/04/25 07:00 09/19/25 10:51 1 STRIP Insulin Human Regular ACHS SC 09/04/25 07:00 09/18/25 11:50 2 UNITS Dextrose 50 ml UD PRN IV 09/04/25 05:15 Pantoprazole Sodium 40 mg DAILY IV 09/06/25 10:00 09/19/25 07:24 40 MG Enteral Nutritional Formula 1,000 ml 35ML/HR GT 09/06/25 11:00 09/17/25 20:05 1,000 ML Artificial Tears 1 drop Q4HP PRN EACHEYE 09/08/25 18:00 09/15/25 02:47 1 DROP Epoetin Nahun-epbx 10,000 unit MWF@2100 ND 09/09/25 21:00 09/18/25 21:47 10,000 UNIT Multi-Ingredient Ointment 1 applic DAILY TOP 09/10/25 10:00 09/19/25 07:24 1 APPLIC Doxycycline Hyclate 100 ml @ 50 mls/hr Q12H IV 09/10/25 11:00 09/19/25 07:47 50 MLS/HR Norepinephrine Bitartrate 250 ml @ 3.75 mls/hr Q24H IV 09/15/25 08:45 09/18/25 13:30 11.25 MLS/HR Zirconium Oxide 10 gm BID PO 09/19/25 22:00 09/26/25 21:59 Bumetanide 1 mg BIDD IV 09/19/25 12:30 09/19/25 12:40 1 MG Examination General Intubated, ventilated, unresponsive, no sedation. Neuro * GCS 3T * Pupils fixed/dilated * No corneal, gag, cough reflex * No oculocephalic reflex * Cold caloric: negative bilaterally * Some spinal reflex muscle twitching * No purposeful movement * No response to pain Respiratory Even chest rise; clear to auscultation; no accessory muscle use due to no neurologic drive. Cardiovascular Regular rhythm; labile BP; distal pulses present. GI Soft abdomen; tolerating tube feeds; [address]; oliguric. Skin Rash improving; sacral area healing. Extremities Warm; mild dependent edema. Lines * Endotracheal tube * OG tube * Central line (femoral) * Right IJ tunneled dialysis catheter * Sams catheter laboratory and microbiology Laboratory Tests 09/19/25 03:14 Test 09/19/25 03:14 Range/Units Serum Glucose 101 74-106 mg/dL Microbiology Date/Time Source Procedure Growth Status 09/04/25 23:21 Urine - Sams Port Urine Culture - Final Complete 09/04/25 10:00 Nose MRSA Screen - Final Complete 09/04/25 04:22 Sputum Expectorated Sputum Gram Stain - Final Complete 09/04/25 04:22 Respiratory Culture - Final Staphylococcus aureus Complete 09/04/25 01:40 Blood Blood Culture - Final NO GROWTH AFTER 5 DAYS OF INCUBATION. Complete Problem List/Assessment/Plan Problem List/Assessment/Plan Neurology #Catastrophic, irreversible, severe anoxic brain injury; extremely poor prognosis Metabolic encephalopathy (secondary to anoxic injury) * Imaging consistent with brain * Clinical exam does NOT meet full brain- criteria (minimal brainstem reflex activity) * Spinal reflexes present * Prognosis: terminal # History of anxiety # Questionable Seizure like activity -Neurology on board - Neurology stated poor prognosis * Continue neuro checks Q1H * Maintain normothermia * Avoid hypotension/hypoxia * Nuclear brain perfusion scan consistent with brain * EEG: Severe diffuse cerebral dysfunction consistent with severe hypoxic metabolic encephalopathy For now full code. * Family fully understands prognosis and has chosen comfort-focused withdrawal tomorrow at 11 AM * Second neurologist exam does not meet brain criteria but poor prognosis, family updated * Maintain current ventilatory support Cardiology #Postcardiac arrest state (VF arrest - ROSC) #Mixed cardiogenic + septic shock on norepinephrine # heart failure with reduced ejection fraction likely post cardiac arrest # Dyslipidemia # Non ST-elevation myocardial infarction likely type 2 status post cardiac arrest, type 1 not ruled out -Head CT -Ekg -Echo : Conclusion MODERATELY DILATED RV AND IS HYPOKINETIC DYSKINESIS OF IVS RVSP IS 40 MM OF HG AND IS HIGH STUDY CONFIRM RV FAILURE GLOBAL LV HYPOKINESIS LV EF IS 40% AND IS REDUCED NORMAL VALVES NO EFFUSION Maintain SPP (Systolic Perfusion Pressure) > 90 mmHg at all times. * Titrate norepinephrine (LEVOPHED) drip to maintain SPP > 90 mmHg. * Monitor for multi-organ shock progression.* Avoid hypotension to preserve brain perfusion * Cardiology involved * Daily EKG * Trend troponins Given anoxic brain injury, the patient is not a candidate for invasive cardiac work-up as per cardiology continue conservative medical management. * Bradycardia episodes with repositioning move gently Respiratory #Acute hypoxic respiratory failure requiring mechanical ventilation * AC/VC: RR 15, TV 450, PEEP 5, FiO2 30% * VAP bundle * Daily CXR * Oral care Q4H * SBT contraindicated Infectious Disease #MSSA / possible aspiration pneumonia * STOPPED Unasyn today due to allergic rash * continue doxycycline * Continue to monitor rash progression * Monitor sputum, blood, urine cultures * COVID/Flu negative * WBC (mild improvement) Hematology Microcytic anemia # severe anemia requiring blood transfusion -2 unit of PRBC transfused Started on IV IRON # coagulopathy likely due to sepsis Monitor Thrombocytopenia (Plt 124), resolved * * Hgb stable at 7.5 , Discontinued Heparin, transfuse only if <7 * Platelets normal * DVT prophylaxis: Heparin held due to anemia * Use SCDs Renal * KIMI stage 3 on solitary kidney *Dialysis-dependent renal failure * Continue daily evaluation for kidney replacement therapy. * Avoid nephrotoxins * Daily BMP, Mg, Phos hyperkalemia Corrected # hypernatremia -initially corrected with a half NS # metabolic acidosis due to sepsis Monitor ABG # respiratory alkalosis Decrease respiratory rate to 12 # hypomagnesemia Monitor Urology # complicated urinary tract infection -on antibiotics # Punctate nonobstructing right renal calculi. Seen on ultrasound # Left nephrectomy. Seen on ultrasound GI Shock liver (AST/ALT markedly elevated) now improving * Continue Nepro tube feeds @ 35 mL/hr * Check residuals Q4H * PPI for ulcer prophylaxis * Monitor stool output Endocrine * Insulin ACHS * Maintain BG [id number] Skin * Stage 1 sacral ulcer * Wound care following * Reposition Q2H * Beta-lactam hypersensitivity improving Ensure no heparin products (including flushes) STOP beta-lactams (done) Start doxycycline (done) Warm compresses to affected areas Reposition Q2H to reduce pressure contribution NO signs of cellulitis (no warmth) Topical emollients (Aquaphor) to reduce skin breakdown Monitor platelets daily OPHTHALMOLOGY * Conjunctival injection, swollen eyelids * Start Lacri-lube eye drops Q6H LINES / TUBES * ETT (09/04) * OG tube * Left femoral central line (09/04) * Sams catheter Right IJ tunneled dialysis catheter (09/09) * Daily line necessity review PROPHYLAXIS * DVT: SCDs only * GI: Pantoprazole * Ulcer: Q2H turns * VAP: oral care, CHG, HOB elevation SOCIAL WORK / FAMILY SUPPORT * Family updated extensively today Family meeting held * TERMINAL WEANING SCHEDULED FOR 11:00 AM TOMORROW * Request continuation of FULL CODE & full aggressive care for now * Social work available for support CODE STATUS FULL CODE Family updated today; despite detailed prognosis counseling, they request full aggressive measures and full code total time spent >20 mins CRITICAL CARE TIME 83 minutes of critical care time spent today, excluding procedure time. . DISCUSSION WITH ATTENDING Case reviewed in detail with attending physician Dr Salcido. Management plan jointly agreed upon. including the clinical presentation, diagnostic workup, and comprehensive management plan. The patient's family was present for the discussion and demonstrated understanding of his condition and the proposed plan. Plan discussed with: Other (brother, sister) Dietary Evaluation Review Comments: 1. nepro 35/hr providing 68g pro, 1487kcal, 611ml free water, meeting 107% energy needs, 80% protein needs 2. Increase amount of Protein support for wound healing when/if pt's kidney function impvoes. F/U and reassess when pt is off vent and PRN. Expected Outcomes/Goals: Adequate nutrition support for being on mechanical ventilation CC Plasma Assessment Blood Product Administration S: 06:05 JUANA HUDSON RESIDENT Sep 19, 2025 13:24
--- NOTE | 2025-09-19 18:29 | DVHPN2 ---
Progress Note - Dictate Date Seen: Sep 19, 2025 Has the PT tested + for MRSA If YES, has PT been informed?: No Medical Necessity Reason Pt with a Central, PICC or Fol: Yes The following are medically ne: Central Line, Sams Catheter Subjective Patient was seen and evaluated in follow up in the ICU. Patient is intubated on ventilator. FiO2 30%. Patient remains off sedation. Pending family meeting to make decision regarding patients care. 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 Chest x-ray showed NAD. vital signs Vital Sign Date Time Temp Pulse Resp B/P (MAP) Pulse Ox O2 Delivery O2 Flow Rate FiO2 09/19/25 09:36 30 09/19/25 09:36 24 100 Mechanical Ventilator+ 09/19/25 09:36 70 09/19/25 09:30 112/65 (81) 09/19/25 08:00 98.6 98.6 Total Intake and Output 09/18/25 09/18/25 09/19/25 15:00 23:00 07:00 Intake Total 363 ml 200 ml Output Total 325 ml 650 ml Balance 38 ml -450 ml medications Current Medications Medications Dose Ordered Sig/Ese Route Start Time Stop Time Status Last Admin Dose Admin Diagnostic Test (Pha) 1 strip ACHS 09/04/25 07:00 09/19/25 10:51 1 STRIP Insulin Human Regular ACHS SC 09/04/25 07:00 09/18/25 11:50 2 UNITS Dextrose 50 ml UD PRN IV 09/04/25 05:15 Pantoprazole Sodium 40 mg DAILY IV 09/06/25 10:00 09/19/25 07:24 40 MG Enteral Nutritional Formula 1,000 ml 35ML/HR GT 09/06/25 11:00 09/17/25 20:05 1,000 ML Artificial Tears 1 drop Q4HP PRN EACHEYE 09/08/25 18:00 09/15/25 02:47 1 DROP Epoetin Nahun-epbx 10,000 unit MWF@2100 SC 09/09/25 21:00 09/18/25 21:47 10,000 UNIT Multi-Ingredient Ointment 1 applic DAILY TOP 09/10/25 10:00 09/19/25 07:24 1 APPLIC Doxycycline Hyclate 100 ml @ 50 mls/hr Q12H IV 09/10/25 11:00 09/19/25 07:47 50 MLS/HR Norepinephrine Bitartrate 250 ml @ 3.75 mls/hr Q24H IV 09/15/25 08:45 09/18/25 13:30 11.25 MLS/HR objective GENERAL: Ill appearing, intubated on ventilator. EYES: PERRL, EOMI. Anicteric. HENT: Moist mucous membranes. LUNGS: Decreased breath sounds. CARDIOVASCULAR: Regular rate and rhythm. ABDOMEN: Soft, nontender and nondistended. EXTREMITIES: No edema. SKIN: Warm, dry. laboratory and microbiology Laboratory Tests 09/19/25 03:14 Test 09/19/25 03:14 Range/Units Serum Glucose 101 74-106 mg/dL Problem List Cardiopulmonary arrest with ROSC. Ventricular fibrillation arrest with defibrillation at 100J. Non ST-elevation myocardial infarction. Acute anemia status post blood transfusion (-FOBT). Acute hypoxic respiratory failure. Likely KIMI on CKD. Left nephrectomy. Shocked Liver. Dyslipidemia, newly diagnosed. Cerebral and cerebellar edema, anoxic brain injury. ? Suspected PE with RV failure and PAH. Assessment/Plan Continued all current supportive medical care. IV antibiotics as ordered. GI prophylactics. Vasopressors for hemodynamic support. Additional plan as per the hospital course. Critical care time of 45 minutes provided to include time spent evaluation of patient at bedside, when appropriate patient/family education for diagnosis, treatment plan, review of pertinent medical information and discussion of care with specialty providers and PCP. Mechanical ventilator parameters, treatment and adjustments have personally been reviewed by me and treatment plan by bed teacher has also been reviewed. Dietary Evaluation Review Comments: 1. nepro 35/hr providing 68g pro, 1487kcal, 611ml free water, meeting 107% energy needs, 80% protein needs 2. Increase amount of Protein support for wound healing when/if pt's kidney function impvoes. F/U and reassess when pt is off vent and PRN. Expected Outcomes/Goals: Adequate nutrition support for being on mechanical ventilation Plan discussed with: Other CC Plasma Assessment Blood Product Administration S: 06:05 RISHI SOARES MD Sep 19, 2025 12:15
[2025-09-19] MEDS: SODIUM ZIRCONIUM CYCL 10 GM PAK PO SCH (21:13)
[2025-09-20] VITALS (108 sets, daily range): BP systolic 80–140; BP diastolic 29–78; PULSE 77–98; RESP 13–23; TEMP 97.4–99.1; O2SAT 98–100
[2025-09-20 04:34] LABS: Hematocrit 28.1 % (36.0-46.0); Hemoglobin 8.7 g/dL (12.2-16.2); Mean Corpuscular Hemoglobin 22.8 pg (28.0-32.0); Mean Corpuscular Volume 73.2 fL (80.0-100.0); Nucleated Red Blood Cells % 0.1 %
[2025-09-20 04:48] LABS: Chloride 101 mmol/L (98-107); Potassium 4.2 mmol/L (3.5-5.1); Sodium 142 mmol/L (136-145)
[2025-09-20 04:49] LABS: Anion Gap 11 (5-15); Carbon Dioxide 30 mmol/L (20-31)
[2025-09-20 04:54] LABS: BUN/Creatinine Ratio 13.8 (10.0-20.0)
[2025-09-20 04:55] LABS: Magnesium 2.1 mg/dL (1.6-2.6)
[2025-09-20 04:59] LABS: Glucose 118 mg/dL (74-106)
[2025-09-20 05:00] LABS: Blood Urea Nitrogen 48 mg/dL (9-23); Calcium 11.1 mg/dL (8.7-10.4)
--- NOTE | 2025-09-20 08:06 | DVH ---
CHEST RADIOGRAPH Indication: intubated Technique: Single frontal view of the chest was obtained COMPARISON: XY CHEST XRAY 1 VIEW on DOS: 09/19/25, XY CHEST XRAY 1 VIEW on DOS: 09/18/25, XY CHEST XRAY 1 VIEW on DOS: 09/17/25, XY CHEST XRAY 1 VIEW on DOS: 09/16/25, XY CHEST XRAY 1 VIEW on DOS: 09/15/25 FINDINGS: Lines and Tubes: Endotracheal tube, enteric catheter and right central venous catheter in satisfactory position. Lungs: Unchanged pulmonary vascular congestion. Pleura: No effusion. No pneumothorax. Cardiomediastinal contours: Unremarkable Bones: Unremarkable IMPRESSION: Lines and tubes in satisfactory position. No significant interval change.
[2025-09-20 09:05] LABS: Base Excess 5.0 mmol/L (-2.0-3.0)
--- NOTE | 2025-09-20 11:43 | DVHPN2 ---
Progress Note Date Seen: Sep 20, 2025 Has the PT tested + for MRSA If YES, has PT been informed?: No Medical Necessity Reason Pt with a Central, PICC or Fol: Yes The following are medically ne: Central Line, Sams Catheter Subjective Review of Systems: Deferred Objective vital signs Vital Sign Date Time Temp Pulse Resp B/P (MAP) Pulse Ox O2 Delivery O2 Flow Rate FiO2 09/20/25 11:00 85 14 93/54 (67) 99 09/20/25 10:16 30 09/20/25 10:00 Mechanical Ventilator+ 09/20/25 08:00 97.8 97.8 Total Intake and Output 09/19/25 09/19/25 09/20/25 15:00 23:00 07:00 Intake Total 250 ml 443 ml Output Total 700 ml 725 ml Balance -450 ml -282 ml medications Current Medications Medications Dose Ordered Sig/Ese Route Start Time Stop Time Status Last Admin Dose Admin Diagnostic Test (Pha) 1 strip ACHS 09/04/25 07:00 09/20/25 11:00 1 STRIP Insulin Human Regular ACHS SC 09/04/25 07:00 09/20/25 06:11 2 UNITS Dextrose 50 ml UD PRN IV 09/04/25 05:15 Pantoprazole Sodium 40 mg DAILY IV 09/06/25 10:00 09/20/25 10:45 40 MG Enteral Nutritional Formula 1,000 ml 35ML/HR GT 09/06/25 11:00 09/17/25 20:05 1,000 ML Artificial Tears 1 drop Q4HP PRN EACHEYE 09/08/25 18:00 09/15/25 02:47 1 DROP Epoetin Nahun-epbx 10,000 unit MWF@2100 VA 09/09/25 21:00 09/18/25 21:47 10,000 UNIT Multi-Ingredient Ointment 1 applic DAILY TOP 09/10/25 10:00 09/20/25 10:00 1 APPLIC Doxycycline Hyclate 100 ml @ 50 mls/hr Q12H IV 09/10/25 11:00 09/20/25 11:00 50 MLS/HR Norepinephrine Bitartrate 250 ml @ 3.75 mls/hr Q24H IV 09/15/25 08:45 09/20/25 08:00 7.5 MLS/HR Zirconium Oxide 10 gm BID PO 09/19/25 22:00 09/26/25 21:59 09/20/25 10:00 10 GM Bumetanide 1 mg BID IV 09/19/25 22:00 09/20/25 10:45 1 MG Examination: GENERAL:Abnormal, LUNGS:Abnormal, NEURO:Abnormal laboratory and microbiology Laboratory Tests 09/20/25 03:27 Test 09/20/25 03:27 Range/Units Serum Glucose 118 H 74-106 mg/dL Microbiology Date/Time Source Procedure Growth Status 09/04/25 23:21 Urine - Sams Port Urine Culture - Final Complete 09/04/25 10:00 Nose MRSA Screen - Final Complete 09/04/25 04:22 Sputum Expectorated Sputum Gram Stain - Final Complete 09/04/25 04:22 Respiratory Culture - Final Staphylococcus aureus Complete 09/04/25 01:40 Blood Blood Culture - Final NO GROWTH AFTER 5 DAYS OF INCUBATION. Complete Problem List/Assessment/Plan Problem List/Assessment/Plan KIMI, from [facility] due to cardiac arrest requiring hemodialysis Acute respiratory failure, intubated on ventilator Status post cardiac arrest Anoxic encephalopathy Cardiogenic/septic shock NSTEMI Plan/recommendation: next HD is tentative on Sunday, received dialysis last night lokelma TID due to hyperkalemia Epogen 00009 subQ 3 times weekly Strict I&Os, loop diuretic resumed nepro tube feeding, phos , pth level Monitor urinary output ,improved Vasopressor per primary team Avoid nephrotoxic medication Ct head--anoxic encephalopathy EEG/perfusion scan showed anoxic brain injury, defer to neurology and primary for alf care and management from renal standpoint no renal recovery noted Plan discussed with: Other My Orders My Orders Orders - DAXA NG MD Procedure Category Date Status Time Sodium Zirconium PHA 09/19/25 In Process Cyclosilicate 22:00 Parathyroid Hormone LAB 09/20/25 In Process Intact 04:00 Vitamin D, 25-Hydroxy LAB 09/20/25 In Process 04:00 Bumetanide Injection PHA 09/19/25 In Process (Bumex Injection) 22:00 Hemodialysis Orders ORDERS 09/19/25 Transmitted 18:11 Dietary Evaluation Review Comments: 1. nepro 35/hr providing 68g pro, 1487kcal, 611ml free water, meeting 107% energy needs, 80% protein needs 2. Increase amount of Protein support for wound healing when/if pt's kidney function impvoes. F/U and reassess when pt is off vent and PRN. Expected Outcomes/Goals: Adequate nutrition support for being on mechanical ventilation CC Plasma Assessment Blood Product Administration S: 06:05 DAXA NG MD Sep 20, 2025 11:43
--- NOTE | 2025-09-20 14:58 | DVHPNRES ---
Progress Note Date Seen: Sep 20, 2025 Resident Creating Document: FRANCIS PRESSLEY RESIDENT Has the PT tested + for MRSA If YES, has PT been informed?: No Medical Necessity Reason Pt with a Central, PICC or Fol: Yes The following are medically ne: Central Line, Sams Catheter Subjective Review of Systems The patient is a 40-year-old female with past medical history of anxiety, UTIs, and kidney stones who presented to [facility] ED for evaluation of cardiac arrest. As reported by EMS/family, patient had cardiac arrest, was asystole 1238 a.m., CPR initiated by family. Patient was initially anxious but was not having any complaints like chest pain or shortness of breath. EMS were on the scene within 5 minutes, CPR continued, patient was given IV fluid, epinephrine x2, became VFib so patient was shocked at 100 joules, Narcan given, became asystole again upon arrival at ER at 0108 hours, blood sugar upon arrival was 43, ROSC obtained at 0112 a.m. Family also reports that patient was depressed for the past 5 years, she has been staying in bed with decreased oral intake, had a fall injury in April resulting in arm and hip fracture. They denied any other significant past medical history. Patient was seen and evaluated in the ED, laboratory data shows WBC 8.8, hemoglobin 6.4, hematocrit 25.0, platelets 260, sodium 151, potassium 6.3, BUN 29, creatinine 2.52, GFR 24, glucose 146, anion gap 28.001, calcium 7.9, lactic acid 21.1 trending down to 15.2, magnesium 4.1, AST 2482, ALT 1430, troponin 2769, BNP 8.48, lipase 31, protein 4.8, albumin 2.7, blood pressure 151/22 trending up to 107/30, heart rate 106, temperature 94.2 F, O2 saturation 97% on ventilator. Head CT showed no acute intracranial abnormality. Patient was started on IV antibiotic regimen vancomycin, please see medication orders section in the computer. On my assessment, patient remains fully intubated, no diaphoresis, no diarrhea, vomiting, no fever. Patient was admitted for further evaluation and medical management. past surgical history; family denies family history: noncontributory past social history: patient lives with the family, denies any smoking, alcohol, drug use 09/06/25: patient seen in ICU. Patient is intubated, on Levophed o, off sedation. Head CT showed diffuse cerebral and cerebellar edema due to anoxic brain injury. neurology following, neurology stated poor prognosis. Kidney functions worsening. Patient's family states before admission patient has seizure-like activity, loss of consciousness which was on and off during the whole day. 09/07/25 40-year-old female in the ICU following cardiopulmonary arrest on 09/04/25, now with severe anoxic brain injury. * Intubated, mechanically ventilated * Off all sedation * No spontaneous movements * No response to pain * No brainstem reflexes: absent corneal, cough, gag, oculocephalic reflexes * Pupils 8 mm, fixed, nonreactive * Family updated todaypoor prognosis discussed, but family chooses FULL CODE and wants everything done Overnight: * Urine output 250 mL total/ 0.15ML/KG/HR * Sams in place, urine [id number] annia * Tube feeds restarted, residuals 15 mL, tolerated * Small bowel movement today * Yamileth-care and sacral wound care performed EEG completed at bedside today for assessment of anoxic injury. Hemodynamics: * On norepinephrine drip for shock Respiratory: * Lungs clear except mild right basal infiltrates Consults: Neurology and Nephrology actively following. 09/08/25 The patient remains critically ill, intubated, mechanically ventilated, and off all sedation since 09/05. Overnight and through today, there continues to be no neurologic improvement. * Mental status unchanged and remains unresponsive/comatose * EEG yesterday inconclusive. Neurology now ordering brain perfusion scan today for brain evaluation * On norepinephrine drip, titrated 8 - 4 mcg/min * CXR today: no major change, persistent bilateral mixed pulmonary opacities and probable small pleural effusions * Oliguria continues * Urine output overnight: 100 mL * Total UO last 24h: 200 mL * Nephrology discontinued Lasix 80 mg BID * Lasix drip started * IR consulted for tunneled dialysis catheter placed today * Plan for hemodialysis/BIODIESEL OPERATIONS MANAGER likely tomorrow Patient remains in critical multiorgan dysfunction with severe irreversible anoxic brain injury, worsening renal failure requiring BIODIESEL OPERATIONS MANAGER preparation, hemodynamic instability requiring vasopressors, and persistent respiratory failure on the ventilator. No neurologic recovery. Full code per family request. 09/09/25 The patient remains critically ill, intubated, mechanically ventilated, and off all sedation since 09/05. Overnight and through today, there continues to be no neurologic improvement. * Mental status unchanged and remains unresponsive/comatose * EEG yesterday inconclusive . Neurology now ordering brain perfusion scan today for brain evaluation * Oliguria continues * IR consulted tunneled dialysis catheter today * Plan for hemodialysis/BIODIESEL OPERATIONS MANAGER likely tomorrow, patient developed b/l upper extremity rash near the right elbow and left antecubital fossa. Patient remains in critical multiorgan dysfunction with severe irreversible anoxic brain injury, worsening renal failure requiring BIODIESEL OPERATIONS MANAGER preparation, hemodynamic instability requiring vasopressors, and persistent respiratory failure on the ventilator. No neurologic recovery.Full code per family request. 09/10/25 he patient continues to remain critically ill, unresponsive, mechanically ventilated, off all sedation, with severe anoxic brain injury and no signs of neurologic recovery. Family continues to request FULL CODE and continuation of all aggressive medical care. * Urine output: 0.16 mL/kg/hr (severely oliguric) * Yesterday: Hemodialysis with 700 mL ultrafiltration * Today: Plan for 11.5 L ultrafiltration * Tunneled right IJ permacath placed 09/09 * Lasix drip discontinued * Creatinine 5.9 (improving from 7.58) * Iron studies: * Iron 11 (low),TIBC 204 (low),Saturation 5.4% (severely low),Ferritin 132 * EEG: Severe diffuse cerebral dysfunction consistent with severe hypoxic metabolic encephalopathy * Poor prognosis confirmed by neurology * Brain perfusion nuclear scan scheduled today/tomorrow for brain evaluation * Diffuse purpuric rash spreading over upper extremities and lower extremities * Ecchymosis + petechiae + non-blanching lesions * Rash progression after Unasyn possible beta-lactam hypersensitivity * Unasyn discontinued today * Doxycycline started 09/11/25 The patient was examined at bedside this morning. She remains critically ill, mechanically ventilated, unresponsive, and off all sedation. Today's major update is the nuclear brain perfusion scan showing complete absence of intracranial perfusion with hot-nose sign, radiologically consistent with BRAIN , pending final neurologic confirmation. Family was updated about the extremely poor prognosis; however, they insist on FULL CODE and full aggressive care. * When repositioned, HR drops into 30s returned to baseline after stabilization * SpO2: 98% on FiO2 30% * No fever * Urine output: 0.05 mL/kg/hr (severe oliguria) * HD yesterday removed 1.5 L UF * HD planned again tomorrow 09/12/25 The patient was evaluated at bedside today. She remains intubated, mechanically ventilated, and entirely unresponsive with no sedation on board. Neurology officially confirmed BRAIN today based on: * Absent brainstem reflexes * No spontaneous respiration * Nuclear medicine brain perfusion scan showing complete absence of intracranial perfusion * Clinical brain examination performed and documented This was explained thoroughly to the family. Despite clear communication, the family continues to request FULL CODE status and all aggressive measures, including long-term life support and LTAC placement. A long term care social worker/Case Management consult has been placed for LTAC disposition per family request. 09/13/2025 The patient was evaluated today in the ICU. She remains intubated, mechanically ventilated, on Levophed, and unresponsive with no sedation. She is afebrile, normocardic, and with MAP maintained on pressors. Labs today showed drop in Hb to 6.9, for which 1 unit of PRBC was transfused. Creatinine and BUN continue to increase, for which she was dialyzed today. Stool sample were also to evaluate any possible bleeding. Brain has been declared by neurology, family wishes for her to remain FULL CODE at this time. Per Retail Bakery Manager, the patient does not qualify for LTAC placement at this time. We will continue to monitor. 09/14/25 The patient was evaluated at bedside today. She remains intubated and mechanically ventilated, without sedation, unresponsive, and with previously confirmed brain (absent brain perfusion, absent brainstem reflexes, nuclear perfusion scan positive for brain ). She continues to exhibit no neurologic function. Family met at bedside today. The irreversible prognosis and confirmed brain status were reviewed again. Family is currently discussing goals of care but for now insists the patient remain FULL CODE with continued aggressive care, including ongoing mechanical ventilation and dialysis as needed. Overnight Interval Events Hemoglobin dropped to 6.6 1 unit PRBC transfused post-transfusion Hgb 8.7 Dialysis removed 2 L Rash continues to improve No major ventilatory changes Hemodynamics fluctuating but stable with vasopressors 09/15/25 The patient was evaluated at bedside today. She remains intubated, mechanically ventilated, unresponsive without sedation. Neurologically, she continues to exhibit no cerebral or brainstem activity, consistent with previously documented brain on nuclear medicine perfusion study. Important new finding today: Despite clinical brain , the patient demonstrates spinal reflex activity, including: * Muscle twitching in upper extremities * Brief fast fasciculatory movements upon touch * Reflexive limb motion during turning and repositioning These findings are consistent with spinal reflex arcs, not cortical activity, and do not contradict brain physiology. Family has not yet decided regarding withdrawal of care and continues to insist on full aggressive measures. A second neurologist is scheduled for repeat confirmatory brain- exam today. Hemodialysis ongoing, with UF goal 1 L. Rash that developed after Unasyn is improving.Thrombocytopenia worsened (platelets 23,000). Hemoglobin dropped again. 09/16/25 The patient was evaluated at bedside today. She remains intubated, mechanically ventilated, and completely unresponsive without sedation. Her neurologic status continues to show no meaningful clinical neurologic function, however spinal reflex activity (muscle twitching on touch and during repositioning) persists, consistent with spinal cordmediated reflexes, not brain activity. A second neurologist completed a full clinical examination yesterday including cold caloric testing, corneal reflex, gag, cough reflex, pain response, and oculovestibular function: * Some isolated spinal reflex muscle activity was noted * Neurologist conclusion: * Does NOT meet full clinical criteria for brain because minimal brainstem reflex activity was detected * However, overall exam consistent with irreversible catastrophic anoxic brain injury * Radiologic findings remain consistent with brain pattern * Prognosis: extremely poor, essentially non-survivable anoxic injury Family was updated at bedside. They are considering terminal weaning, but request more time and have decided for now to continue FULL CODE, FULL AGGRESSIVE CARE. Patient continues on mechanical ventilation, dialysis-dependent KIMI,and poor neurologic prognosis. 09/17/25 The patient was evaluated at bedside today. She remains intubated, mechanically ventilated, profoundly unresponsive, and off all sedation. Her neurologic status is unchanged , consistent with irreversible catastrophic anoxic brain injury, although she does not meet full clinical criteria for formal brain (as per second neurologist evaluation). She continues to demonstrate intermittent spinal reflex activity (muscle twitching with touch or turning), consistent with spinal cordmediated reflexes. The family continues to deliberate regarding terminal weaning. They have not yet decided on the timing and request additional time. Until a final decision is made, they request FULL CODE and full aggressive support. No new acute events overnight. Hemodynamics remain supported with norepinephrine drip, titrated to maintain SPP > 90 mmHg per updated neuro-critical care plan. The patient is scheduled for hemodialysis today, with UF per nephrology recommendations. No other major changes in clinical condition. 09/18/25 The patient underwent hemodialysis yesterday, with 1.9 liters removed, and tolerated the procedure without acute complications. She remains on norepinephrine (LEVOPHED) infusion 58 mcg/min with blood pressures fluctuating between 116/65 and 90/57 mmHg. Repeat chest X-ray today shows increased interstitial prominence, raising concern for mild pulmonary congestion vs early interstitial edema. Most importantly, after multiple family meetings and extensive discussion with neurology and , the family has decided on terminal weaning tomorrow at 11:00 AM. Full supportive measures and full code status will be continued until the time of terminal weaning. 09/19/25: Patient seen and examined at bedside, had a long family discussion today, patient who is her POA was absent due to work, patient's family was determined and willing after her father coming from [place], 09/20/25 The patient underwent hemodialysis yesterday (09/19/25) with 1.0 L ultrafiltration removed, resulting in improvement in BUN (48 improved), creatinine (3.49 from 4.49), and potassium correction (5.4 - 4.2). She continues on norepinephrine (Levo) at 4 mcg/min for blood pressure support. No acute distress noted. Family meeting conducted today the patients family wishes to proceed with terminal weaning next week once the patients father arrives from [place]. Until then, they request continuation of full aggressive care with full code status. Doxycycline discontinued today as the full antibiotic course has been completed. No new overnight events. Objective vital signs Vital Sign Date Time Temp Pulse Resp B/P (MAP) Pulse Ox O2 Delivery O2 Flow Rate FiO2 09/20/25 14:30 85 15 100/62 (75) 100 09/20/25 14:27 30 09/20/25 14:00 Mechanical Ventilator+ 09/20/25 12:00 97.8 97.8 Total Intake and Output 09/19/25 09/19/25 09/20/25 14:59 22:59 06:59 Intake Total 250 ml 443 ml Output Total 700 ml 725 ml Balance -450 ml -282 ml medications Current Medications Medications Dose Ordered Sig/Ese Route Start Time Stop Time Status Last Admin Dose Admin Diagnostic Test (Pha) 1 strip ACHS 09/04/25 07:00 09/20/25 11:00 1 STRIP Insulin Human Regular ACHS SC 09/04/25 07:00 09/20/25 06:11 2 UNITS Dextrose 50 ml UD PRN IV 09/04/25 05:15 Pantoprazole Sodium 40 mg DAILY IV 09/06/25 10:00 09/20/25 10:45 40 MG Enteral Nutritional Formula 1,000 ml 35ML/HR GT 09/06/25 11:00 09/17/25 20:05 1,000 ML Artificial Tears 1 drop Q4HP PRN EACHEYE 09/08/25 18:00 09/15/25 02:47 1 DROP Epoetin Nahun-epbx 10,000 unit MWF@2100 SC 09/09/25 21:00 09/18/25 21:47 10,000 UNIT Multi-Ingredient Ointment 1 applic DAILY TOP 09/10/25 10:00 09/20/25 10:00 1 APPLIC Doxycycline Hyclate 100 ml @ 50 mls/hr Q12H IV 09/10/25 11:00 09/20/25 11:00 50 MLS/HR Norepinephrine Bitartrate 250 ml @ 3.75 mls/hr Q24H IV 09/15/25 08:45 09/20/25 08:00 7.5 MLS/HR Zirconium Oxide 10 gm BID PO 09/19/25 22:00 09/26/25 21:59 09/20/25 10:00 10 GM Bumetanide 1 mg BID IV 09/19/25 22:00 09/20/25 10:45 1 MG Examination General Intubated, ventilated, unresponsive, no sedation. Neuro * GCS 3T * Pupils fixed/dilated * No corneal, gag, cough reflex * No oculocephalic reflex * Cold caloric: negative bilaterally * Some spinal reflex muscle twitching * No purposeful movement * No response to pain Respiratory Even chest rise; clear to auscultation; no accessory muscle use due to no neurologic drive. Cardiovascular Regular rhythm; labile BP; distal pulses present. GI Soft abdomen; tolerating tube feeds; [address]; oliguric. Skin Rash improving; sacral area healing. Extremities Warm; mild dependent edema. Lines * Endotracheal tube * OG tube * Central line (femoral) * Right IJ tunneled dialysis catheter * Sams catheter laboratory and microbiology Laboratory Tests 09/20/25 03:27 Test 09/20/25 03:27 Range/Units Serum Glucose 118 H 74-106 mg/dL Microbiology Date/Time Source Procedure Growth Status 09/04/25 23:21 Urine - Sams Port Urine Culture - Final Complete 09/04/25 10:00 Nose MRSA Screen - Final Complete 09/04/25 04:22 Sputum Expectorated Sputum Gram Stain - Final Complete 09/04/25 04:22 Respiratory Culture - Final Staphylococcus aureus Complete 09/04/25 01:40 Blood Blood Culture - Final NO GROWTH AFTER 5 DAYS OF INCUBATION. Complete Problem List/Assessment/Plan Problem List/Assessment/Plan ASSESSMENT /PLAN SYSTEM HODGE Neurology #Catastrophic, irreversible, severe anoxic brain injury; extremely poor prognosis Metabolic encephalopathy (secondary to anoxic injury) * Imaging consistent with brain * Clinical exam does NOT meet full brain- criteria (minimal brainstem reflex activity) * Spinal reflexes present * Prognosis: terminal # History of anxiety # Questionable Seizure like activity -Neurology on board - Neurology stated poor prognosis * Continue neuro checks Q1H * Maintain normothermia * Avoid hypotension/hypoxia * Nuclear brain perfusion scan consistent with brain * EEG: Severe diffuse cerebral dysfunction consistent with severe hypoxic metabolic encephalopathy For now full code. * Family fully understands prognosis and has chosen comfort-focused terminal weaning next week when father arrives * Second neurologist exam does not meet brain criteria but poor prognosis, family updated * Maintain current ventilatory support Cardiology #Postcardiac arrest state (VF arrest - ROSC) #Mixed cardiogenic + septic shock on norepinephrine # heart failure with reduced ejection fraction likely post cardiac arrest # Dyslipidemia # Non ST-elevation myocardial infarction likely type 2 status post cardiac arrest, type 1 not ruled out -Head CT -Ekg -Echo : Conclusion MODERATELY DILATED RV AND IS HYPOKINETIC DYSKINESIS OF IVS RVSP IS 40 MM OF HG AND IS HIGH STUDY CONFIRM RV FAILURE GLOBAL LV HYPOKINESIS LV EF IS 40% AND IS REDUCED NORMAL VALVES NO EFFUSION Maintain SPP (Systolic Perfusion Pressure) > 90 mmHg at all times. * Titrate norepinephrine (LEVOPHED) drip to maintain SPP > 90 mmHg. * Monitor for multi-organ shock progression.* Avoid hypotension to preserve brain perfusion * Cardiology involved * Daily EKG * Trend troponins Given anoxic brain injury, the patient is not a candidate for invasive cardiac work-up as per cardiology continue conservative medical management. * Bradycardia episodes with repositioning move gently Respiratory #Acute hypoxic respiratory failure requiring mechanical ventilation * AC/VC: RR 15, TV 450, PEEP 5, FiO2 30% * VAP bundle * Daily CXR * Oral care Q4H * SBT contraindicated Infectious Disease #MSSA / aspiration pneumonia * STOPPED Unasyn today due to allergic rash * Doxycycline discontinued (course completed) * Continue to monitor rash progression * Monitor sputum, blood, urine cultures * COVID/Flu negative * WBC (mild improvement) Hematology Microcytic anemia # severe anemia requiring blood transfusion -2 unit of PRBC transfused Started on IV IRON # coagulopathy likely due to sepsis Monitor Thrombocytopenia (Plt 124), resolved * * Hgb stable at 7.5 , Discontinued Heparin, transfuse only if <7 * Platelets normal * DVT prophylaxis: Heparin held due to anemia * Use SCDs Renal * KIMI stage 3 on solitary kidney Hyperkalemia improving hypercalcemia hyperphosphatemia *Dialysis-dependent renal failure * Continue daily evaluation for kidney replacement therapy. * Avoid nephrotoxins * Daily BMP, Mg, Phos hyperkalemia Corrected # hypernatremia -initially corrected with a half NS # metabolic acidosis due to sepsis Monitor ABG # respiratory alkalosis Decrease respiratory rate to 12 # hypomagnesemia Monitor Urology # complicated urinary tract infection -on antibiotics # Punctate nonobstructing right renal calculi. Seen on ultrasound # Left nephrectomy. Seen on ultrasound GI Shock liver (AST/ALT markedly elevated) now improving * Continue Nepro tube feeds @ 35 mL/hr * Check residuals Q4H * PPI for ulcer prophylaxis * Monitor stool output Endocrine * Insulin ACHS * Maintain BG [id number] Skin * Stage 1 sacral ulcer * Wound care following * Reposition Q2H * Beta-lactam hypersensitivity improving Ensure no heparin products (including flushes) STOP beta-lactams (done) Start doxycycline (done) Warm compresses to affected areas Reposition Q2H to reduce pressure contribution NO signs of cellulitis (no warmth) Topical emollients (Aquaphor) to reduce skin breakdown Monitor platelets daily OPHTHALMOLOGY * Conjunctival injection, swollen eyelids * Start Lacri-lube eye drops Q6H LINES / TUBES * ETT (09/04) * OG tube * Left femoral central line (09/04) * Sams catheter Right IJ tunneled dialysis catheter (09/09) * Daily line necessity review PROPHYLAXIS * DVT: SCDs only * GI: Pantoprazole * Ulcer: Q2H turns * VAP: oral care, CHG, HOB elevation SOCIAL WORK / FAMILY SUPPORT Family meeting held * Terminal weaning planned next week * Father en route from [place] * Social work and lead oxide mill tender involved * Request continuation of FULL CODE & full aggressive care for now * Social work available for support CODE STATUS FULL CODE Family updated today; despite detailed prognosis counseling, they request full aggressive measures and full code total time spent >20 mins CRITICAL CARE TIME 83 minutes of critical care time spent today, excluding procedure time. . DISCUSSION WITH ATTENDING Case reviewed in detail with attending physician Dr Salcido. Management plan jointly agreed upon. including the clinical presentation, diagnostic workup, and comprehensive management plan. The patient's family was present for the discussion and demonstrated understanding of his condition and the proposed plan. Plan discussed with: Daughter (RN), Other My Orders My Orders Orders - FRANCIS PRESSLEY RESIDENT Procedure Category Date Status Time Complete Blood Count LAB 09/21/25 Verified 04:00 Comprehensive LAB 09/21/25 Verified Metabolic Panel 04:00 Chest Xray 1 View XY 09/21/25 Verified 04:00 Magnesium LAB 09/21/25 Verified 04:00 Abg W/ Co-Ox RT 09/21/25 Verified 04:00 Dietary Evaluation Review Comments: 1. nepro 35/hr providing 68g pro, 1487kcal, 611ml free water, meeting 107% energy needs, 80% protein needs 2. Increase amount of Protein support for wound healing when/if pt's kidney function impvoes. F/U and reassess when pt is off vent and PRN. Expected Outcomes/Goals: Adequate nutrition support for being on mechanical ventilation CC Plasma Assessment Blood Product Administration S: 06:05 FRANCIS PRESSLEY RESIDENT Sep 20, 2025 14:58
--- NOTE | 2025-09-20 20:51 | DVHPN2 ---
Progress Note - Dictate Date Seen: Sep 20, 2025 Has the PT tested + for MRSA If YES, has PT been informed?: No Medical Necessity Reason Pt with a Central, PICC or Fol: Yes The following are medically ne: Central Line, Sams Catheter Subjective Patient was seen and evaluated in follow up in the ICU. Patient is intubated on ventilator. FiO2 30%. Family meeting was held yesterday however the patient's family has not come to a decision regarding the patient's care. HGB 8.7, HCT 28.1, BUN 48, MINERALOGY TEACHER 3.49, CA 11.1. vital signs Vital Sign Date Time Temp Pulse Resp B/P (MAP) Pulse Ox O2 Delivery O2 Flow Rate FiO2 09/20/25 13:15 77 15 100/61 (74) 99 09/20/25 12:27 30 09/20/25 12:00 Mechanical Ventilator+ 09/20/25 12:00 97.8 97.8 Total Intake and Output 09/19/25 09/19/25 09/20/25 15:00 23:00 07:00 Intake Total 250 ml 443 ml Output Total 700 ml 725 ml Balance -450 ml -282 ml medications Current Medications Medications Dose Ordered Sig/Ese Route Start Time Stop Time Status Last Admin Dose Admin Diagnostic Test (Pha) 1 strip ACHS 09/04/25 07:00 09/20/25 11:00 1 STRIP Insulin Human Regular ACHS SC 09/04/25 07:00 09/20/25 06:11 2 UNITS Dextrose 50 ml UD PRN IV 09/04/25 05:15 Pantoprazole Sodium 40 mg DAILY IV 09/06/25 10:00 09/20/25 10:45 40 MG Enteral Nutritional Formula 1,000 ml 35ML/HR GT 09/06/25 11:00 09/17/25 20:05 1,000 ML Artificial Tears 1 drop Q4HP PRN EACHEYE 09/08/25 18:00 09/15/25 02:47 1 DROP Epoetin Nahun-epbx 10,000 unit MWF@2100 SC 09/09/25 21:00 09/18/25 21:47 10,000 UNIT Multi-Ingredient Ointment 1 applic DAILY TOP 09/10/25 10:00 09/20/25 10:00 1 APPLIC Doxycycline Hyclate 100 ml @ 50 mls/hr Q12H IV 09/10/25 11:00 09/20/25 11:00 50 MLS/HR Norepinephrine Bitartrate 250 ml @ 3.75 mls/hr Q24H IV 09/15/25 08:45 09/20/25 08:00 7.5 MLS/HR Zirconium Oxide 10 gm BID PO 09/19/25 22:00 09/26/25 21:59 09/20/25 10:00 10 GM Bumetanide 1 mg BID IV 09/19/25 22:00 09/20/25 10:45 1 MG objective GENERAL: Ill appearing, intubated on ventilator. EYES: PERRL, EOMI. Anicteric. HENT: Moist mucous membranes. LUNGS: Decreased breath sounds. CARDIOVASCULAR: Regular rate and rhythm. ABDOMEN: Soft, nontender and nondistended. EXTREMITIES: No edema. SKIN: Warm, dry. laboratory and microbiology Laboratory Tests 09/20/25 03:27 Test 09/20/25 03:27 Range/Units Serum Glucose 118 H 74-106 mg/dL Problem List Cardiopulmonary arrest with ROSC. Ventricular fibrillation arrest with defibrillation at 100J. Non ST-elevation myocardial infarction. Acute anemia status post blood transfusion (-FOBT). Acute hypoxic respiratory failure. Likely KIMI on CKD. Left nephrectomy. Shocked Liver. Dyslipidemia, newly diagnosed. Cerebral and cerebellar edema, anoxic brain injury. ? Suspected PE with RV failure and PAH. Assessment/Plan Continued all current supportive medical care. IV antibiotics as ordered. GI prophylactics. Diuretics with Bumex. Vasopressors for hemodynamic support. Additional plan as per the hospital course. Critical care time of 45 minutes provided to include time spent evaluation of patient at bedside, when appropriate patient/family education for diagnosis, treatment plan, review of pertinent medical information and discussion of care with specialty providers and PCP. Mechanical ventilator parameters, treatment and adjustments have personally been reviewed by me and treatment plan by flash welder has also been reviewed. Dietary Evaluation Review Comments: 1. nepro 35/hr providing 68g pro, 1487kcal, 611ml free water, meeting 107% energy needs, 80% protein needs 2. Increase amount of Protein support for wound healing when/if pt's kidney function impvoes. F/U and reassess when pt is off vent and PRN. Expected Outcomes/Goals: Adequate nutrition support for being on mechanical ventilation Plan discussed with: Other CC Plasma Assessment Blood Product Administration S: 06:05 RISHI SOARES MD Sep 20, 2025 13:31
[2025-09-21] VITALS (104 sets, daily range): BP systolic 57–119; BP diastolic 22–71; PULSE 82–99; RESP 9–16; TEMP 99.1–99.5; O2SAT 93–100
[2025-09-21 04:14] LABS: Hematocrit 26.5 % (36.0-46.0); Hemoglobin 8.4 g/dL (12.2-16.2); Mean Corpuscular Hemoglobin 22.6 pg (28.0-32.0); Mean Corpuscular Volume 71.6 fL (80.0-100.0); Nucleated Red Blood Cells % 0.2 %
--- NOTE | 2025-09-21 04:21 | DVH ---
CHEST RADIOGRAPH Indication: Acute hypoxic resipiratory failure Technique: Single frontal view of the chest was obtained COMPARISON: XY CHEST XRAY 1 VIEW on DOS: 09/20/25, XY CHEST XRAY 1 VIEW on DOS: 09/19/25, XY CHEST XRAY 1 VIEW on DOS: 09/18/25, XY CHEST XRAY 1 VIEW on DOS: 09/17/25, XY CHEST XRAY 1 VIEW on DOS: 09/16/25 FINDINGS: Lines and Tubes: Unchanged. Lungs: Clear Pleura: No effusion. No pneumothorax. Cardiomediastinal contours: Unremarkable Bones: Unremarkable IMPRESSION: 1. No acute cardiopulmonary disease. 2. Lines and tubes unchanged.
[2025-09-21 04:24] LABS: Anion Gap 14 (5-15); BUN/Creatinine Ratio 14.5 (10.0-20.0); Bilirubin, Total 0.3 mg/dL (0.2-1.0); Carbon Dioxide 29 mmol/L (20-31); Chloride 104 mmol/L (98-107); Glucose 95 mg/dL (74-106); Magnesium 2.4 mg/dL (1.6-2.6); Potassium 4.1 mmol/L (3.5-5.1); Total Protein 6.7 g/dL (5.7-8.2)
[2025-09-21 04:33] LABS: Alanine Aminotransferase 58 U/L (7-40); Albumin 3.2 g/dL (3.2-4.8); Alkaline Phosphatase 597 U/L (46-116); Blood Urea Nitrogen 64 mg/dL (9-23); Calcium 12.0 mg/dL (8.7-10.4); Sodium 147 mmol/L (136-145)
[2025-09-21 04:45] LABS: Anisocytosis Moderate
[2025-09-21 08:35] LABS: Base Excess 3.7 mmol/L (-2.0-3.0)
--- NOTE | 2025-09-21 13:49 | DVHPN2 ---
Progress Note Date Seen: Sep 21, 2025 Resident Creating Document: CHIDI BOWERS RESIDENT Has the PT tested + for MRSA If YES, has PT been informed?: No Medical Necessity Reason Pt with a Central, PICC or Fol: Yes The following are medically ne: Central Line, Sams Catheter Subjective Review of Systems Patient seen and examined at the bedside. Unable to obtain ROS due to patient's clinical status patient is currently Sedated and intubated. Review of Systems: RESPIRATORY:Abnormal Other Systems: Patient seen and examined by myself today on rounds with the medicine resident, I agree with his assessment and plan Patient remained Objective vital signs Vital Sign Date Time Temp Pulse Resp B/P (MAP) Pulse Ox O2 Delivery O2 Flow Rate FiO2 09/21/25 12:14 93 14 102/60 (74) 98 30 09/21/25 06:00 Mechanical Ventilator+ 09/21/25 00:00 99.3 99.3 Total Intake and Output 09/20/25 09/20/25 09/21/25 15:00 23:00 07:00 Intake Total 840 ml 149 ml Output Total 1850 ml 1250 ml Balance -1010 ml -1101 ml medications Current Medications Medications Dose Ordered Sig/Ese Route Start Time Stop Time Status Last Admin Dose Admin Diagnostic Test (Pha) 1 strip ACHS 09/04/25 07:00 09/21/25 11:56 1 STRIP Insulin Human Regular ACHS SC 09/04/25 07:00 09/20/25 06:11 2 UNITS Dextrose 50 ml UD PRN IV 09/04/25 05:15 Pantoprazole Sodium 40 mg DAILY IV 09/06/25 10:00 09/21/25 11:55 40 MG Enteral Nutritional Formula 1,000 ml 35ML/HR GT 09/06/25 11:00 09/17/25 20:05 1,000 ML Artificial Tears 1 drop Q4HP PRN EACHEYE 09/08/25 18:00 09/15/25 02:47 1 DROP Epoetin Nahun-epbx 10,000 unit MWF@2100 SC 09/09/25 21:00 09/18/25 21:47 10,000 UNIT Multi-Ingredient Ointment 1 applic DAILY TOP 09/10/25 10:00 09/21/25 11:56 1 APPLIC Norepinephrine Bitartrate 250 ml @ 3.75 mls/hr Q24H IV 09/15/25 08:45 09/21/25 02:38 9.375 MLS/HR Zirconium Oxide 10 gm BID PO 09/19/25 22:00 09/26/25 21:59 09/20/25 10:00 10 GM Bumetanide 1 mg BID IV 09/19/25 22:00 09/20/25 21:51 1 MG Examination General Appearance: mild distress, Other (Intubated, on vent) HEENT: Atraumatic, PERRLA, Other Lungs: Slightly diminished sounds Cardiovascular: Normal S1, Normal S2 Abdomen: Normal bowel sounds, Soft, No tenderness, No hepatosplenomegaly, No masses Genitourinary: Sams catheter Musculoskeletal: Trace edema Neuro: Unable to assess Skin: Dry, Intact laboratory and microbiology Laboratory Tests 09/21/25 03:46 Test 09/21/25 03:46 Range/Units Serum Glucose 95 74-106 mg/dL Microbiology Date/Time Source Procedure Growth Status 09/04/25 23:21 Urine - Sams Port Urine Culture - Final Complete 09/04/25 10:00 Nose MRSA Screen - Final Complete 09/04/25 04:22 Sputum Expectorated Sputum Gram Stain - Final Complete 09/04/25 04:22 Respiratory Culture - Final Staphylococcus aureus Complete 09/04/25 01:40 Blood Blood Culture - Final NO GROWTH AFTER 5 DAYS OF INCUBATION. Complete Labs and/or images reviewed: Labs reviewed by me, Image(s) reviewed by me Problem List/Assessment/Plan Problem List/Assessment/Plan KIMI, from [facility] due to cardiac arrest requiring hemodialysis Acute respiratory failure, intubated on ventilator Status post cardiac arrest Anoxic encephalopathy Cardiogenic/septic shock NSTEMI Hypernatremia due to insensible water loss Plan/recommendation: Hemodialysis tomorrow [facility]ogen [id number] subQ 3 times weekly Strict I&Os, loop diuretic resumed nepro tube feeding, phos , pth level Free H2O q.4 hours the NG tube Monitor urinary output ,improved Vasopressor per primary team Avoid nephrotoxic medication Ct head--anoxic encephalopathy EEG/perfusion scan showed anoxic brain injury, defer to neurology and primary for care home care and management Poor prognosis Case discussed with the Dr. Barrera Plan discussed with: Other (rn) Dietary Evaluation Review Comments: 1. nepro 35/hr providing 68g pro, 1487kcal, 611ml free water, meeting 107% energy needs, 80% protein needs 2. Increase amount of Protein support for wound healing when/if pt's kidney function impvoes. F/U and reassess when pt is off vent and PRN. Expected Outcomes/Goals: Adequate nutrition support for being on mechanical ventilation CC Plasma Assessment Blood Product Administration S: 06:05 CHIDI BOWERS Sep 21, 2025 13:49 CARISSA BARRERA MD Sep 21, 2025 14:36
--- NOTE | 2025-09-21 13:53 | DVHPNRES ---
Progress Note Date Seen: Sep 21, 2025 Resident Creating Document: FRANCIS PRESSLEY RESIDENT Has the PT tested + for MRSA If YES, has PT been informed?: No Medical Necessity Reason Pt with a Central, PICC or Fol: Yes The following are medically ne: Central Line, Sams Catheter Subjective Review of Systems The patient is a 40-year-old female with past medical history of anxiety, UTIs, and kidney stones who presented to [facility] ED for evaluation of cardiac arrest. As reported by EMS/family, patient had cardiac arrest, was asystole 1238 a.m., CPR initiated by family. Patient was initially anxious but was not having any complaints like chest pain or shortness of breath. EMS were on the scene within 5 minutes, CPR continued, patient was given IV fluid, epinephrine x2, became VFib so patient was shocked at 100 joules, Narcan given, became asystole again upon arrival at ER at 0108 hours, blood sugar upon arrival was 43, ROSC obtained at 0112 a.m. Family also reports that patient was depressed for the past 5 years, she has been staying in bed with decreased oral intake, had a fall injury in April resulting in arm and hip fracture. They denied any other significant past medical history. Patient was seen and evaluated in the ED, laboratory data shows WBC 8.8, hemoglobin 6.4, hematocrit 25.0, platelets 260, sodium 151, potassium 6.3, BUN 29, creatinine 2.52, GFR 24, glucose 146, anion gap 28.001, calcium 7.9, lactic acid 21.1 trending down to 15.2, magnesium 4.1, AST 2482, ALT 1430, troponin 2769, BNP 8.48, lipase 31, protein 4.8, albumin 2.7, blood pressure 151/22 trending up to 107/30, heart rate 106, temperature 94.2 F, O2 saturation 97% on ventilator. Head CT showed no acute intracranial abnormality. Patient was started on IV antibiotic regimen vancomycin, please see medication orders section in the computer. On my assessment, patient remains fully intubated, no diaphoresis, no diarrhea, vomiting, no fever. Patient was admitted for further evaluation and medical management. past surgical history; family denies family history: noncontributory past social history: patient lives with the family, denies any smoking, alcohol, drug use 09/06/25: patient seen in ICU. Patient is intubated, on Levophed o, off sedation. Head CT showed diffuse cerebral and cerebellar edema due to anoxic brain injury. neurology following, neurology stated poor prognosis. Kidney functions worsening. Patient's family states before admission patient has seizure-like activity, loss of consciousness which was on and off during the whole day. 09/07/25 40-year-old female in the ICU following cardiopulmonary arrest on 09/04/25, now with severe anoxic brain injury. * Intubated, mechanically ventilated * Off all sedation * No spontaneous movements * No response to pain * No brainstem reflexes: absent corneal, cough, gag, oculocephalic reflexes * Pupils 8 mm, fixed, nonreactive * Family updated todaypoor prognosis discussed, but family chooses FULL CODE and wants everything done Overnight: * Urine output 250 mL total/ 0.15ML/KG/HR * Sams in place, urine [id number] annia * Tube feeds restarted, residuals 15 mL, tolerated * Small bowel movement today * Yamileth-care and sacral wound care performed EEG completed at bedside today for assessment of anoxic injury. Hemodynamics: * On norepinephrine drip for shock Respiratory: * Lungs clear except mild right basal infiltrates Consults: Neurology and Nephrology actively following. 09/08/25 The patient remains critically ill, intubated, mechanically ventilated, and off all sedation since 09/05. Overnight and through today, there continues to be no neurologic improvement. * Mental status unchanged and remains unresponsive/comatose * EEG yesterday inconclusive. Neurology now ordering brain perfusion scan today for brain evaluation * On norepinephrine drip, titrated 8 - 4 mcg/min * CXR today: no major change, persistent bilateral mixed pulmonary opacities and probable small pleural effusions * Oliguria continues * Urine output overnight: 100 mL * Total UO last 24h: 200 mL * Nephrology discontinued Lasix 80 mg BID * Lasix drip started * IR consulted for tunneled dialysis catheter placed today * Plan for hemodialysis/DISTRIBUTION DRIVER likely tomorrow Patient remains in critical multiorgan dysfunction with severe irreversible anoxic brain injury, worsening renal failure requiring DISTRIBUTION DRIVER preparation, hemodynamic instability requiring vasopressors, and persistent respiratory failure on the ventilator. No neurologic recovery. Full code per family request. 09/09/25 The patient remains critically ill, intubated, mechanically ventilated, and off all sedation since 09/05. Overnight and through today, there continues to be no neurologic improvement. * Mental status unchanged and remains unresponsive/comatose * EEG yesterday inconclusive . Neurology now ordering brain perfusion scan today for brain evaluation * Oliguria continues * IR consulted tunneled dialysis catheter today * Plan for hemodialysis/DISTRIBUTION DRIVER likely tomorrow, patient developed b/l upper extremity rash near the right elbow and left antecubital fossa. Patient remains in critical multiorgan dysfunction with severe irreversible anoxic brain injury, worsening renal failure requiring DISTRIBUTION DRIVER preparation, hemodynamic instability requiring vasopressors, and persistent respiratory failure on the ventilator. No neurologic recovery.Full code per family request. 09/10/25 he patient continues to remain critically ill, unresponsive, mechanically ventilated, off all sedation, with severe anoxic brain injury and no signs of neurologic recovery. Family continues to request FULL CODE and continuation of all aggressive medical care. * Urine output: 0.16 mL/kg/hr (severely oliguric) * Yesterday: Hemodialysis with 700 mL ultrafiltration * Today: Plan for 11.5 L ultrafiltration * Tunneled right IJ permacath placed 09/09 * Lasix drip discontinued * Creatinine 5.9 (improving from 7.58) * Iron studies: * Iron 11 (low),TIBC 204 (low),Saturation 5.4% (severely low),Ferritin 132 * EEG: Severe diffuse cerebral dysfunction consistent with severe hypoxic metabolic encephalopathy * Poor prognosis confirmed by neurology * Brain perfusion nuclear scan scheduled today/tomorrow for brain evaluation * Diffuse purpuric rash spreading over upper extremities and lower extremities * Ecchymosis + petechiae + non-blanching lesions * Rash progression after Unasyn possible beta-lactam hypersensitivity * Unasyn discontinued today * Doxycycline started 09/11/25 The patient was examined at bedside this morning. She remains critically ill, mechanically ventilated, unresponsive, and off all sedation. Today's major update is the nuclear brain perfusion scan showing complete absence of intracranial perfusion with hot-nose sign, radiologically consistent with BRAIN , pending final neurologic confirmation. Family was updated about the extremely poor prognosis; however, they insist on FULL CODE and full aggressive care. * When repositioned, HR drops into 30s returned to baseline after stabilization * SpO2: 98% on FiO2 30% * No fever * Urine output: 0.05 mL/kg/hr (severe oliguria) * HD yesterday removed 1.5 L UF * HD planned again tomorrow 09/12/25 The patient was evaluated at bedside today. She remains intubated, mechanically ventilated, and entirely unresponsive with no sedation on board. Neurology officially confirmed BRAIN today based on: * Absent brainstem reflexes * No spontaneous respiration * Nuclear medicine brain perfusion scan showing complete absence of intracranial perfusion * Clinical brain examination performed and documented This was explained thoroughly to the family. Despite clear communication, the family continues to request FULL CODE status and all aggressive measures, including long-term life support and LTAC placement. A child welfare social worker/Case Management consult has been placed for LTAC disposition per family request. 09/13/2025 The patient was evaluated today in the ICU. She remains intubated, mechanically ventilated, on Levophed, and unresponsive with no sedation. She is afebrile, normocardic, and with MAP maintained on pressors. Labs today showed drop in Hb to 6.9, for which 1 unit of PRBC was transfused. Creatinine and BUN continue to increase, for which she was dialyzed today. Stool sample were also to evaluate any possible bleeding. Brain has been declared by neurology, family wishes for her to remain FULL CODE at this time. Per [employer] Sequestration Plant Operator, the patient does not qualify for LTAC placement at this time. We will continue to monitor. 09/14/25 The patient was evaluated at bedside today. She remains intubated and mechanically ventilated, without sedation, unresponsive, and with previously confirmed brain (absent brain perfusion, absent brainstem reflexes, nuclear perfusion scan positive for brain ). She continues to exhibit no neurologic function. Family met at bedside today. The irreversible prognosis and confirmed brain status were reviewed again. Family is currently discussing goals of care but for now insists the patient remain FULL CODE with continued aggressive care, including ongoing mechanical ventilation and dialysis as needed. Overnight Interval Events Hemoglobin dropped to 6.6 1 unit PRBC transfused post-transfusion Hgb 8.7 Dialysis removed 2 L Rash continues to improve No major ventilatory changes Hemodynamics fluctuating but stable with vasopressors 09/15/25 The patient was evaluated at bedside today. She remains intubated, mechanically ventilated, unresponsive without sedation. Neurologically, she continues to exhibit no cerebral or brainstem activity, consistent with previously documented brain on nuclear medicine perfusion study. Important new finding today: Despite clinical brain , the patient demonstrates spinal reflex activity, including: * Muscle twitching in upper extremities * Brief fast fasciculatory movements upon touch * Reflexive limb motion during turning and repositioning These findings are consistent with spinal reflex arcs, not cortical activity, and do not contradict brain physiology. Family has not yet decided regarding withdrawal of care and continues to insist on full aggressive measures. A second neurologist is scheduled for repeat confirmatory brain- exam today. Hemodialysis ongoing, with UF goal 1 L. Rash that developed after Unasyn is improving.Thrombocytopenia worsened (platelets 23,000). Hemoglobin dropped again. 09/16/25 The patient was evaluated at bedside today. She remains intubated, mechanically ventilated, and completely unresponsive without sedation. Her neurologic status continues to show no meaningful clinical neurologic function, however spinal reflex activity (muscle twitching on touch and during repositioning) persists, consistent with spinal cordmediated reflexes, not brain activity. A second neurologist completed a full clinical examination yesterday including cold caloric testing, corneal reflex, gag, cough reflex, pain response, and oculovestibular function: * Some isolated spinal reflex muscle activity was noted * Neurologist conclusion: * Does NOT meet full clinical criteria for brain because minimal brainstem reflex activity was detected * However, overall exam consistent with irreversible catastrophic anoxic brain injury * Radiologic findings remain consistent with brain pattern * Prognosis: extremely poor, essentially non-survivable anoxic injury Family was updated at bedside. They are considering terminal weaning, but request more time and have decided for now to continue FULL CODE, FULL AGGRESSIVE CARE. Patient continues on mechanical ventilation, dialysis-dependent KIMI,and poor neurologic prognosis. 09/17/25 The patient was evaluated at bedside today. She remains intubated, mechanically ventilated, profoundly unresponsive, and off all sedation. Her neurologic status is unchanged , consistent with irreversible catastrophic anoxic brain injury, although she does not meet full clinical criteria for formal brain (as per second neurologist evaluation). She continues to demonstrate intermittent spinal reflex activity (muscle twitching with touch or turning), consistent with spinal cordmediated reflexes. The family continues to deliberate regarding terminal weaning. They have not yet decided on the timing and request additional time. Until a final decision is made, they request FULL CODE and full aggressive support. No new acute events overnight. Hemodynamics remain supported with norepinephrine drip, titrated to maintain SPP > 90 mmHg per updated neuro-critical care plan. The patient is scheduled for hemodialysis today, with UF per nephrology recommendations. No other major changes in clinical condition. 09/18/25 The patient underwent hemodialysis yesterday, with 1.9 liters removed, and tolerated the procedure without acute complications. She remains on norepinephrine (LEVOPHED) infusion 58 mcg/min with blood pressures fluctuating between 116/65 and 90/57 mmHg. Repeat chest X-ray today shows increased interstitial prominence, raising concern for mild pulmonary congestion vs early interstitial edema. Most importantly, after multiple family meetings and extensive discussion with neurology and , the family has decided on terminal weaning tomorrow at 11:00 AM. Full supportive measures and full code status will be continued until the time of terminal weaning. 09/19/25: Patient seen and examined at bedside, had a long family discussion today, patient who is her POA was absent due to work, patient's family was determined and willing after her father coming from [place], 09/20/25 The patient underwent hemodialysis yesterday (09/19/25) with 1.0 L ultrafiltration removed, resulting in improvement in BUN (48 improved), creatinine (3.49 from 4.49), and potassium correction (5.4 - 4.2). She continues on norepinephrine (Levo) at 4 mcg/min for blood pressure support. No acute distress noted. Family meeting conducted today the patients family wishes to proceed with terminal weaning next week once the patients father arrives from [place]. Until then, they request continuation of full aggressive care with full code status. Doxycycline discontinued today as the full antibiotic course has been completed. No new overnight events. 09/21/25 Family states they are still waiting for the patients father to arrive from [place] before deciding on terminal weaning with comfort-focused care. Until then, they request continuation of full code and full aggressive management. Todays labs show worsening azotemia (BUN 64, Cr 4.41), hypernatremia (Na 147) likely from insensible losses and decreased free water intake, anemia with Hgb 8.4, thrombocytosis (platelets 566K), and ABG showing respiratory alkalosis with metabolic alkalosis compensation. Hemodialysis is scheduled for tomorrow per nephrology. Loop diuretics resumed. Tube feeding switched to Nepro formula. Free water boluses q4h through G-tube started. PTH level ordered. Respiratory secretions mild. Vent settings changed: respiratory rate decreased from 15 - 14. No acute overnight events. Objective vital signs Vital Sign Date Time Temp Pulse Resp B/P (MAP) Pulse Ox O2 Delivery O2 Flow Rate FiO2 09/21/25 12:14 93 14 102/60 (74) 98 30 09/21/25 06:00 Mechanical Ventilator+ 09/21/25 00:00 99.3 99.3 Total Intake and Output 09/20/25 09/20/25 09/21/25 15:00 23:00 07:00 Intake Total 840 ml 149 ml Output Total 1850 ml 1250 ml Balance -1010 ml -1101 ml medications Current Medications Medications Dose Ordered Sig/Ese Route Start Time Stop Time Status Last Admin Dose Admin Diagnostic Test (Pha) 1 strip ACHS 09/04/25 07:00 09/21/25 11:56 1 STRIP Insulin Human Regular ACHS SC 09/04/25 07:00 09/20/25 06:11 2 UNITS Dextrose 50 ml UD PRN IV 09/04/25 05:15 Pantoprazole Sodium 40 mg DAILY IV 09/06/25 10:00 09/21/25 11:55 40 MG Enteral Nutritional Formula 1,000 ml 35ML/HR GT 09/06/25 11:00 09/17/25 20:05 1,000 ML Artificial Tears 1 drop Q4HP PRN EACHEYE 09/08/25 18:00 09/15/25 02:47 1 DROP Epoetin Nahun-epbx 10,000 unit MWF@2100 TN 09/09/25 21:00 09/18/25 21:47 10,000 UNIT Multi-Ingredient Ointment 1 applic DAILY TOP 09/10/25 10:00 09/21/25 11:56 1 APPLIC Norepinephrine Bitartrate 250 ml @ 3.75 mls/hr Q24H IV 09/15/25 08:45 09/21/25 02:38 9.375 MLS/HR Zirconium Oxide 10 gm BID PO 09/19/25 22:00 09/26/25 21:59 09/20/25 10:00 10 GM Bumetanide 1 mg BID IV 09/19/25 22:00 09/20/25 21:51 1 MG Examination General Intubated, ventilated, unresponsive, no sedation. Neuro * GCS 3T * Pupils fixed/dilated * No corneal, gag, cough reflex * No oculocephalic reflex * Cold caloric: negative bilaterally * Some spinal reflex muscle twitching * No purposeful movement * No response to pain Respiratory Even chest rise; clear to auscultation; no accessory muscle use due to no neurologic drive. Cardiovascular Regular rhythm; labile BP; distal pulses present. GI Soft abdomen; tolerating tube feeds; [address]; oliguric. Skin Rash improving; sacral area healing. Extremities Warm; mild dependent edema. Lines * Endotracheal tube * OG tube * Central line (femoral) * Right IJ tunneled dialysis catheter * Sams catheter laboratory and microbiology Laboratory Tests 09/21/25 03:46 Test 09/21/25 03:46 Range/Units Serum Glucose 95 74-106 mg/dL Microbiology Date/Time Source Procedure Growth Status 09/04/25 23:21 Urine - Sams Port Urine Culture - Final Complete 09/04/25 10:00 Nose MRSA Screen - Final Complete 09/04/25 04:22 Sputum Expectorated Sputum Gram Stain - Final Complete 09/04/25 04:22 Respiratory Culture - Final Staphylococcus aureus Complete 09/04/25 01:40 Blood Blood Culture - Final NO GROWTH AFTER 5 DAYS OF INCUBATION. Complete Problem List/Assessment/Plan Problem List/Assessment/Plan ASSESSMENT /PLAN SYSTEM HODGE Neurology #Catastrophic, irreversible, severe anoxic brain injury; extremely poor prognosis Metabolic encephalopathy (secondary to anoxic injury) * Imaging consistent with brain * Clinical exam does NOT meet full brain- criteria (minimal brainstem reflex activity) * Spinal reflexes present * Prognosis: terminal # History of anxiety # Questionable Seizure like activity -Neurology on board - Neurology stated poor prognosis * Continue neuro checks Q1H * Maintain normothermia * Avoid hypotension/hypoxia * Nuclear brain perfusion scan consistent with brain * EEG: Severe diffuse cerebral dysfunction consistent with severe hypoxic metabolic encephalopathy For now full code. * Family fully understands prognosis and has chosen comfort-focused terminal weaning next week when father arrives * Second neurologist exam does not meet brain criteria but poor prognosis, family updated * Maintain current ventilatory support Cardiology #Postcardiac arrest state (VF arrest - ROSC) #Mixed cardiogenic + septic shock on norepinephrine # heart failure with reduced ejection fraction likely post cardiac arrest # Dyslipidemia # Non ST-elevation myocardial infarction likely type 2 status post cardiac arrest, type 1 not ruled out -Head CT -Ekg -Echo : Conclusion MODERATELY DILATED RV AND IS HYPOKINETIC DYSKINESIS OF IVS RVSP IS 40 MM OF HG AND IS HIGH STUDY CONFIRM RV FAILURE GLOBAL LV HYPOKINESIS LV EF IS 40% AND IS REDUCED NORMAL VALVES NO EFFUSION Maintain SPP (Systolic Perfusion Pressure) > 90 mmHg at all times. * Titrate norepinephrine (LEVOPHED) drip to maintain SPP > 90 mmHg. * Monitor for multi-organ shock progression.* Avoid hypotension to preserve brain perfusion * Cardiology involved * Daily EKG * Trend troponins Given anoxic brain injury, the patient is not a candidate for invasive cardiac work-up as per cardiology continue conservative medical management. * Bradycardia episodes with repositioning move gently Respiratory #Acute hypoxic respiratory failure requiring mechanical ventilation * AC/VC: RR 14, TV 450, PEEP 5, FiO2 30% * VAP bundle * Daily CXR * Oral care Q4H * SBT contraindicated Infectious Disease #MSSA / aspiration pneumonia * STOPPED Unasyn today due to allergic rash * Doxycycline discontinued (course completed) * Continue to monitor rash progression * Monitor sputum, blood, urine cultures * COVID/Flu negative * WBC (mild improvement) Hematology Microcytic anemia # severe anemia requiring blood transfusion -2 unit of PRBC transfused Started on IV IRON # coagulopathy likely due to sepsis Monitor Thrombocytopenia (Plt 124), resolved * * Hgb stable at 7.5 , Discontinued Heparin, transfuse only if <7 * Platelets normal * DVT prophylaxis: Heparin held due to anemia * Use SCDs Renal * KIMI stage 3 on solitary kidney Hyperkalemia improving hypercalcemia hyperphosphatemia *Dialysis-dependent renal failure * Continue daily evaluation for kidney replacement therapy. * Avoid nephrotoxins * Daily BMP, Mg, Phos hyperkalemia Corrected # hypernatremia * Free water 150 mL q4h via G-tube # metabolic acidosis due to sepsis Monitor ABG # respiratory alkalosis Decrease respiratory rate to 12 # hypomagnesemia Monitor Urology # complicated urinary tract infection -on antibiotics # Punctate nonobstructing right renal calculi. Seen on ultrasound # Left nephrectomy. Seen on ultrasound GI Shock liver (AST/ALT markedly elevated) now improving * Continue Nepro tube feeds @ 35 mL/hr * Check residuals Q4H * PPI for ulcer prophylaxis * Monitor stool output Endocrine * Insulin ACHS * Maintain BG [id number] Skin * Stage 1 sacral ulcer * Wound care following * Reposition Q2H * Beta-lactam hypersensitivity improving Ensure no heparin products (including flushes) STOP beta-lactams (done) Start doxycycline (done) Warm compresses to affected areas Reposition Q2H to reduce pressure contribution NO signs of cellulitis (no warmth) Topical emollients (Aquaphor) to reduce skin breakdown Monitor platelets daily OPHTHALMOLOGY * Conjunctival injection, swollen eyelids * Start Lacri-lube eye drops Q6H LINES / TUBES * ETT (09/04) * OG tube * Left femoral central line (09/04) * Sams catheter Right IJ tunneled dialysis catheter (09/09) * Daily line necessity review PROPHYLAXIS * DVT: SCDs only * GI: Pantoprazole * Ulcer: Q2H turns * VAP: oral care, CHG, HOB elevation SOCIAL WORK / FAMILY SUPPORT Family meeting held * Terminal weaning planned next week * Father en route from [place] * Social work and machine sizer involved * Request continuation of FULL CODE & full aggressive care for now * Social work available for support CODE STATUS FULL CODE Family updated today; despite detailed prognosis counseling, they request full aggressive measures and full code total time spent >20 mins CRITICAL CARE TIME 83 minutes of critical care time spent today, excluding procedure time. . DISCUSSION WITH ATTENDING Case reviewed in detail with attending physician Dr Salcido. Management plan jointly agreed upon. including the clinical presentation, diagnostic workup, and comprehensive management plan. The patient's family was present for the discussion and demonstrated understanding of his condition and the proposed plan. Plan discussed with: Spouse, Daughter (RN) My Orders My Orders Orders - FRANCIS PRESSLEY RESIDENT Procedure Category Date Status Time Chest Xray 1 View XY 09/21/25 Resulted 04:00 Abg W/ Co-Ox RT 09/21/25 Logged 04:00 Dietary Evaluation Review Comments: 1. nepro 35/hr providing 68g pro, 1487kcal, 611ml free water, meeting 107% energy needs, 80% protein needs 2. Increase amount of Protein support for wound healing when/if pt's kidney function impvoes. F/U and reassess when pt is off vent and PRN. Expected Outcomes/Goals: Adequate nutrition support for being on mechanical ventilation CC Plasma Assessment Blood Product Administration S: 06:05 FRANCIS PRESSLEY RESIDENT Sep 21, 2025 13:53
[2025-09-21] MEDS: FREE WATER GT SCH (18:00)
--- NOTE | 2025-09-21 21:18 | DVHPN2 ---
Progress Note - Dictate Date Seen: Sep 21, 2025 Has the PT tested + for MRSA If YES, has PT been informed?: No Medical Necessity Reason Pt with a Central, PICC or Fol: Yes The following are medically ne: Central Line, Sams Catheter Subjective Ms. Murillo is a 40 years old female with a history of kidney stone, depression, anxiety, she was brought to the [facility] on 09/04/2025 with a chief complaint of cardio pulmonary arrest I have seen and examined the patient, talked to her nurse and other medical staff. Her pupils are fixed, no gag reflexes. She has spontaneous or pain evoked decerebrate posturing Family to decide code status Urinalysis, 09/04/2025: WBC: 37, urine leukocyte esterase: Negative UDS, 09/04/2025: Negative Plasma alcohol, 09/04/2025: <3 ABG, 09/10/2025: Metabolic acidosis WBC/HB/PLT/MCV, 09/04/2025: 8.8/6.4/260/79.8 PT/INR/ABG, 09/04/2025: 70.4/1.73/ Na, 09/04/2025: 151, 148, 140 K, 09/04/2025: 6.3, 4.6, 3.2 BUN/CR, 09/04/2025: 30/2.69 09/12/25: 60 4/5.45 GFR, 09/12/2025: Nine TBI/AST/ALT/AP, 09/04/2025: 0.11/2481/4030/74, 0.01/5737/2100/93, 09/12/25: 0.2/148/180/165 Glucose, 09/04/2025: 146, 294, 503 HGB A1c, 09/04/2025: 5 Lactic acid, 09/04/2025: 21.1, or 15.2 Troponin one high sensitivity, 09/04/2025: 2769, 5664, 7574 TG/HDL/LDL/HDL, 09/04/2025: 186/86/41/25 Extremity venous study, 09/04/2025: NO SONOGRAPHIC EVIDENCE FOR DEEP VENOUS THROMBOSIS IN THE BILATERAL LOWER EXTREMITY VEINS Cerebral flow, 09/10/2025: Findings likely representing brain however clinical correlation is needed. Chest x-ray, 09/12/2025: Probable small bilateral pleural effusions with mild bibasilar atelectatic changes. CT head, 09/04/25: No acute intracranial abnormality (I saw evidence suggestive of early diffuse brain edema) CT head 09/05/25: Findings are consistent with severe diffuse cerebral and cerebellar edema possibly representing anoxic brain injury. vital signs Vital Sign Date Time Temp Pulse Resp B/P (MAP) Pulse Ox O2 Delivery O2 Flow Rate FiO2 09/21/25 20:40 91 14 97/67 (77) 98 30 09/21/25 18:00 Mechanical Ventilator+ 09/21/25 08:00 99.5 99.5 Total Intake and Output 09/20/25 09/20/25 09/21/25 15:00 23:00 07:00 Intake Total 840 ml 149 ml Output Total 1850 ml 1250 ml Balance -1010 ml -1101 ml medications Current Medications Medications Dose Ordered Sig/Ese Route Start Time Stop Time Status Last Admin Dose Admin Diagnostic Test (Pha) 1 strip ACHS 09/04/25 07:00 09/21/25 17:14 1 STRIP Insulin Human Regular ACHS SC 09/04/25 07:00 09/21/25 17:15 2 UNITS Dextrose 50 ml UD PRN IV 09/04/25 05:15 Pantoprazole Sodium 40 mg DAILY IV 09/06/25 10:00 09/21/25 11:55 40 MG Artificial Tears 1 drop Q4HP PRN EACHEYE 09/08/25 18:00 09/15/25 02:47 1 DROP Epoetin Nahun-epbx 10,000 unit MWF@2100 NV 09/09/25 21:00 09/18/25 21:47 10,000 UNIT Multi-Ingredient Ointment 1 applic DAILY TOP 09/10/25 10:00 09/21/25 11:56 1 APPLIC Norepinephrine Bitartrate 250 ml @ 3.75 mls/hr Q24H IV 09/15/25 08:45 09/21/25 02:38 9.375 MLS/HR Zirconium Oxide 10 gm BID PO 09/19/25 22:00 09/26/25 21:59 09/20/25 10:00 10 GM Bumetanide 1 mg BID IV 09/19/25 22:00 09/20/25 21:51 1 MG Purified Water 200 ml Q4HR GT 09/21/25 18:00 09/21/25 18:00 200 ML Enteral Nutritional Formula 1,000 ml 45ML/HR GT 09/21/25 19:30 objective The patient is well-nourished and well-developed with no distress. The patient is intubated MENTAL STATUS: Nonresponsive stroke painful stimuli CRANIAL NERVES: Pupils are equal, round, and fixed, left 7 mm, right 6 mm. There are no corneal reflexes and doll's eyes phenomenon. No signs of facial weakness. There are no gagging or coughing reflexes SENSATION: No responses to strong pain stimuli. MOTOR: Normal muscle bulk. No fasciculations. No spontaneous movement. Increased muscle tone in the left upper extremity. See subjective REFLEXES: Deep tendon reflexes are symmetrical. No pathological reflexes. CEREBELLAR/COORDINATION: Deferred GAIT/STATION: deferred. laboratory and microbiology Laboratory Tests 09/21/25 03:46 Test 09/21/25 03:46 Range/Units Serum Glucose 95 74-106 mg/dL Problem List Cardiopulmonary arrest Coma/Metabolic/hypoxic encephalopathy Metabolic acidosis Acute respiratory failure Elevated troponin/heart attack Severe anemia Shocked liver Hypernatremia Increased muscle tone in the left arm Decerebrate posturing Assessment/Plan Monitoring Supportive treatment ICU care Follow up labs Stabilize vitals/pressor drip Respiratory support/vent management Oxygen Antibiotics DVT prophylaxis GI prophylaxis More recommendation per clinical course Poor prognosis for meaningful/overall recovery This medical document was created using an electronic medical record system with [employer] dictation system. Although this document has been carefully reviewed, there may still be some phonetic and typographical errors. These areas are purely typographical due to imperfections of the software programs, and do not reflect any compromise in the patient's medical care. Prognosis poor Dietary Evaluation Review Comments: 1. nepro 35/hr providing 68g pro, 1487kcal, 611ml free water, meeting 107% energy needs, 80% protein needs 2. Increase amount of Protein support for wound healing when/if pt's kidney function impvoes. F/U and reassess when pt is off vent and PRN. Expected Outcomes/Goals: Adequate nutrition support for being on mechanical ventilation Plan discussed with: Other CC Plasma Assessment Blood Product Administration S: 06:05 ALEXIS DEL ANGEL MD Sep 21, 2025 21:18
--- NOTE | 2025-09-21 23:11 | DVHPN2 ---
Progress Note - Dictate Date Seen: Sep 21, 2025 Has the PT tested + for MRSA If YES, has PT been informed?: No Medical Necessity Reason Pt with a Central, PICC or Fol: Yes The following are medically ne: Central Line, Sams Catheter Subjective Patient was seen and evaluated in follow up in the ICU. Patient is intubated on ventilator. FiO2 30%. Patient receiving tube feedings for nutritional support. Hemodialysis is scheduled for tomorrow per nephrology. Family states they are still waiting for the patients father to arrive from [place] before deciding on terminal weaning with comfort-focused care. Until then, they request continuation of full code and full aggressive management. Chest x-ray is unchanged from yesterday. HGB 8.4, HCT 26.5PLT 566, NA 147, BUN 64, Firewall Security Engineer 4.41, Alk Phos 597. vital signs Vital Sign Date Time Temp Pulse Resp B/P (MAP) Pulse Ox O2 Delivery O2 Flow Rate FiO2 09/21/25 22:25 93 14 104/63 (77) 98 30 09/21/25 22:00 Mechanical Ventilator+ 09/21/25 20:00 99.1 99.1 Total Intake and Output 09/20/25 09/20/25 09/21/25 15:00 23:00 07:00 Intake Total 840 ml 149 ml Output Total 1850 ml 1250 ml Balance -1010 ml -1101 ml medications Current Medications Medications Dose Ordered Sig/Ese Route Start Time Stop Time Status Last Admin Dose Admin Diagnostic Test (Pha) 1 strip ACHS 09/04/25 07:00 09/21/25 21:51 1 STRIP Insulin Human Regular ACHS SC 09/04/25 07:00 09/21/25 17:15 2 UNITS Dextrose 50 ml UD PRN IV 09/04/25 05:15 Pantoprazole Sodium 40 mg DAILY IV 09/06/25 10:00 09/21/25 11:55 40 MG Artificial Tears 1 drop Q4HP PRN EACHEYE 09/08/25 18:00 09/15/25 02:47 1 DROP Epoetin Nahun-epbx 10,000 unit MWF@2100 SC 09/09/25 21:00 09/21/25 21:50 10,000 UNIT Multi-Ingredient Ointment 1 applic DAILY TOP 09/10/25 10:00 09/21/25 11:56 1 APPLIC Norepinephrine Bitartrate 250 ml @ 3.75 mls/hr Q24H IV 09/15/25 08:45 09/21/25 02:38 9.375 MLS/HR Zirconium Oxide 10 gm BID PO 09/19/25 22:00 09/26/25 21:59 09/20/25 10:00 10 GM Bumetanide 1 mg BID IV 09/19/25 22:00 09/21/25 21:50 1 MG Purified Water 200 ml Q4HR GT 09/21/25 18:00 09/21/25 21:50 200 ML Enteral Nutritional Formula 1,000 ml 45ML/HR GT 09/21/25 19:30 objective GENERAL: Ill appearing, intubated on ventilator. EYES: PERRL, EOMI. Anicteric. HENT: Moist mucous membranes. LUNGS: Decreased breath sounds. CARDIOVASCULAR: Regular rate and rhythm. ABDOMEN: Soft, nontender and nondistended. EXTREMITIES: No edema. SKIN: Warm, dry. laboratory and microbiology Laboratory Tests 09/21/25 03:46 Test 09/21/25 03:46 Range/Units Serum Glucose 95 74-106 mg/dL Problem List Cardiopulmonary arrest with ROSC. Ventricular fibrillation arrest with defibrillation at 100J. Non ST-elevation myocardial infarction. Acute anemia status post blood transfusion (-FOBT). Acute hypoxic respiratory failure. Likely KIMI on CKD. Left nephrectomy. Shocked Liver. Dyslipidemia, newly diagnosed. Cerebral and cerebellar edema, anoxic brain injury. ? Suspected PE with RV failure and PAH. Assessment/Plan Continued all current supportive medical care. Diuretics with Bumex. Vasopressors for hemodynamic support. GI prophylactics. Additional plan as per the hospital course. Critical care time of 45 minutes provided to include time spent evaluation of patient at bedside, when appropriate patient/family education for diagnosis, treatment plan, review of pertinent medical information and discussion of care with specialty providers and PCP. Mechanical ventilator parameters, treatment and adjustments have personally been reviewed by me and treatment plan by medical affairs manager has also been reviewed. Dietary Evaluation Review Comments: 1. nepro 35/hr providing 68g pro, 1487kcal, 611ml free water, meeting 107% energy needs, 80% protein needs 2. Increase amount of Protein support for wound healing when/if pt's kidney function impvoes. F/U and reassess when pt is off vent and PRN. Expected Outcomes/Goals: Adequate nutrition support for being on mechanical ventilation Plan discussed with: Other CC Plasma Assessment Blood Product Administration S: 06:05 RISHI SOARES MD Sep 21, 2025 23:11
[2025-09-22] VITALS (106 sets, daily range): BP systolic 57–130; BP diastolic 28–98; PULSE 74–99; RESP 9–15; TEMP 97.7–99.9; O2SAT 94–100
[2025-09-22 04:10] LABS: Hemoglobin 9.0 g/dL (12.2-16.2)
[2025-09-22 04:13] LABS: Hematocrit 28.1 % (36.0-46.0); Mean Corpuscular Hemoglobin 23.7 pg (28.0-32.0); Mean Corpuscular Volume 73.5 fL (80.0-100.0); Nucleated Red Blood Cells % 0.2 %
--- NOTE | 2025-09-22 04:56 | DVH ---
CHEST RADIOGRAPH Indication: Acute hypoxic respiratory failure Technique: Single frontal view of the chest was obtained Comparison: XY CHEST XRAY 1 VIEW on DOS: 09/21/25 FINDINGS: Lines and Tubes: The endotracheal tube terminates 2.4 cm above the osmel. The enteric tube courses below the left hemidiaphragm and the tip extends outside the field of view. There is a right central venous catheter with its tip terminating in the superior vena cava. Lungs: Hazy right mid to lower lung zone consolidation. Pleura: No effusion. No pneumothorax. Cardiomediastinal contours: Unremarkable Bones: No acute osseous abnormality. IMPRESSION: 1. Similar position of the support lines and tubes. 2. Hazy right mid to lower lung zone consolidation.
[2025-09-22 05:00] LABS: Albumin 3.3 g/dL (3.2-4.8); Anion Gap 17 (5-15); BUN/Creatinine Ratio 15.1 (10.0-20.0); Carbon Dioxide 29 mmol/L (20-31); Potassium 4.2 mmol/L (3.5-5.1); Total Protein 7.5 g/dL (5.7-8.2)
[2025-09-22 05:05] LABS: Alanine Aminotransferase 51 U/L (7-40); Alkaline Phosphatase 558 U/L (46-116); Bilirubin, Total 0.3 mg/dL (0.2-1.0); Blood Urea Nitrogen 78 mg/dL (9-23); Calcium 12.6 mg/dL (8.7-10.4); Chloride 107 mmol/L (98-107); Glucose 117 mg/dL (74-106); Sodium 153 mmol/L (136-145)
[2025-09-22] MEDS: SODIUM CHL 0.9% 1000 ML BAG XX ONE (05:35)
[2025-09-22] MEDS: ALBUMIN 25% 100 ML IV ONE (05:44)
[2025-09-22] MEDS: ALBUMIN 25% 100 ML IV PRN (05:48)
--- NOTE | 2025-09-22 10:22 | DVHPN2 ---
Progress Note - Dictate Date Seen: Sep 22, 2025 Has the PT tested + for MRSA If YES, has PT been informed?: No Medical Necessity Reason Pt with a Central, PICC or Fol: Yes The following are medically ne: Central Line, Sams Catheter Subjective Ms. Murillo is a 40 years old female with a history of kidney stone, depression, anxiety, she was brought to the [facility] on 09/04/2025 with a chief complaint of cardio pulmonary arrest I have seen and examined the patient, talked to her nurse and other medical staff. Her pupils are fixed, no gag reflexes, Rt: 7mm, Lt: 8mm. She has spontaneous or pain evoked decerebrate posturing Family to decide code status Urinalysis, 09/04/2025: WBC: 37, urine leukocyte esterase: Negative UDS, 09/04/2025: Negative Plasma alcohol, 09/04/2025: <3 ABG, 09/10/2025: Metabolic acidosis WBC/HB/PLT/MCV, 09/04/2025: 8.8/6.4/260/79.8 PT/INR/ABG, 09/04/2025: 70.4/1.73/ Na, 09/04/2025: 151, 148, 140 K, 09/04/2025: 6.3, 4.6, 3.2 BUN/CR, 09/04/2025: 30/2.69 09/12/25: 60 4/5.45 GFR, 09/12/2025: Nine TBI/AST/ALT/AP, 09/04/2025: 0.11/2481/4030/74, 0.01/5737/2100/93, 09/12/25: 0.2/148/180/165 Glucose, 09/04/2025: 146, 294, 503 HGB A1c, 09/04/2025: 5 Lactic acid, 09/04/2025: 21.1, or 15.2 Troponin one high sensitivity, 09/04/2025: 2769, 5664, 7574 TG/HDL/LDL/HDL, 09/04/2025: 186/86/41/25 Extremity venous study, 09/04/2025: NO SONOGRAPHIC EVIDENCE FOR DEEP VENOUS THROMBOSIS IN THE BILATERAL LOWER EXTREMITY VEINS Cerebral flow, 09/10/2025: Findings likely representing brain however clinical correlation is needed. Chest x-ray, 09/12/2025: Probable small bilateral pleural effusions with mild bibasilar atelectatic changes. CT head, 09/04/25: No acute intracranial abnormality (I saw evidence suggestive of early diffuse brain edema) CT head 09/05/25: Findings are consistent with severe diffuse cerebral and cerebellar edema possibly representing anoxic brain injury. vital signs Vital Sign Date Time Temp Pulse Resp B/P (MAP) Pulse Ox O2 Delivery O2 Flow Rate FiO2 09/22/25 10:05 85 14 111/71 (84) 98 30 09/22/25 08:00 Mechanical Ventilator+ 09/22/25 08:00 97.7 97.7 Total Intake and Output 09/21/25 09/21/25 09/22/25 15:00 23:00 07:00 Intake Total 790 ml 1121 ml Output Total 1125 ml 1125 ml Balance -335 ml -4 ml medications Current Medications Medications Dose Ordered Sig/Ese Route Start Time Stop Time Status Last Admin Dose Admin Diagnostic Test (Pha) 1 strip ACHS 09/04/25 07:00 09/22/25 09:03 1 STRIP Insulin Human Regular ACHS SC 09/04/25 07:00 09/22/25 04:55 2 UNITS Dextrose 50 ml UD PRN IV 09/04/25 05:15 Pantoprazole Sodium 40 mg DAILY IV 09/06/25 10:00 09/22/25 09:02 40 MG Artificial Tears 1 drop Q4HP PRN EACHEYE 09/08/25 18:00 09/15/25 02:47 1 DROP Epoetin Nahun-epbx 10,000 unit MWF@2100 [place] 09/09/25 21:00 09/21/25 21:50 10,000 UNIT Multi-Ingredient Ointment 1 applic DAILY TOP 09/10/25 10:00 09/22/25 09:03 1 APPLIC Norepinephrine Bitartrate 250 ml @ 3.75 mls/hr Q24H IV 09/15/25 08:45 09/22/25 00:59 11.25 MLS/HR Zirconium Oxide 10 gm BID PO 09/19/25 22:00 09/26/25 21:59 09/20/25 10:00 10 GM Bumetanide 1 mg BID IV 09/19/25 22:00 09/22/25 09:02 1 MG Purified Water 200 ml Q4HR GT 09/21/25 18:00 09/22/25 09:02 200 ML Enteral Nutritional Formula 1,000 ml 45ML/HR GT 09/21/25 19:30 Albumin Human 100 ml @ 100 mls/hr PRN PRN IV 09/22/25 05:45 09/22/25 05:48 100 MLS/HR objective The patient is well-nourished and well-developed with no distress. The patient is intubated MENTAL STATUS: Nonresponsive stroke painful stimuli CRANIAL NERVES: Pupils are equal, round, and fixed. There are no corneal reflexes and no doll's eyes phenomenon. No signs of facial weakness. There are no gagging or coughing reflexes SENSATION: No responses to strong pain stimuli. MOTOR: Normal muscle bulk. No fasciculations. No spontaneous movement. Increased muscle tone in the left upper extremity. See subjective REFLEXES: Deep tendon reflexes are symmetrical. No pathological reflexes. CEREBELLAR/COORDINATION: Deferred GAIT/STATION: deferred. laboratory and microbiology Laboratory Tests 09/22/25 03:26 Test 09/22/25 03:26 Range/Units Serum Glucose 117 H 74-106 mg/dL Problem List Cardiopulmonary arrest Coma/Metabolic/hypoxic encephalopathy Metabolic acidosis Acute respiratory failure Elevated troponin/heart attack Severe anemia Shocked liver Hypernatremia Increased muscle tone in the left arm Decerebrate posturing Assessment/Plan Monitoring Supportive treatment ICU care Follow up labs Stabilize vitals/pressor drip Respiratory support/vent management Oxygen Antibiotics DVT prophylaxis GI prophylaxis More recommendation per clinical course Poor prognosis for meaningful/overall recovery This medical document was created using an electronic medical record system with [employer] dictation system. Although this document has been carefully reviewed, there may still be some phonetic and typographical errors. These areas are purely typographical due to imperfections of the software programs, and do not reflect any compromise in the patient's medical care. Prognosis poor Dietary Evaluation Review Comments: 1. nepro 35/hr providing 68g pro, 1487kcal, 611ml free water, meeting 107% energy needs, 80% protein needs 2. Increase amount of Protein support for wound healing when/if pt's kidney function impvoes. F/U and reassess when pt is off vent and PRN. Expected Outcomes/Goals: Adequate nutrition support for being on mechanical ventilation Plan discussed with: Other CC Plasma Assessment Blood Product Administration S: 06:05 ALEXIS DEL ANGEL MD Sep 22, 2025 10:22
--- NOTE | 2025-09-22 10:54 | DVHPNRES ---
Progress Note Date Seen: Sep 22, 2025 Resident Creating Document: FRANCIS PRESSLEY RESIDENT Has the PT tested + for MRSA If YES, has PT been informed?: No Medical Necessity Reason Pt with a Central, PICC or Fol: Yes The following are medically ne: Central Line, Smas Catheter Subjective Review of Systems The patient is a 40-year-old female with past medical history of anxiety, UTIs, and kidney stones who presented to [facility] ED for evaluation of cardiac arrest. As reported by EMS/family, patient had cardiac arrest, was asystole 1238 a.m., CPR initiated by family. Patient was initially anxious but was not having any complaints like chest pain or shortness of breath. EMS were on the scene within 5 minutes, CPR continued, patient was given IV fluid, epinephrine x2, became VFib so patient was shocked at 100 joules, Narcan given, became asystole again upon arrival at ER at 0108 hours, blood sugar upon arrival was 43, ROSC obtained at 0112 a.m. Family also reports that patient was depressed for the past 5 years, she has been staying in bed with decreased oral intake, had a fall injury in April resulting in arm and hip fracture. They denied any other significant past medical history. Patient was seen and evaluated in the ED, laboratory data shows WBC 8.8, hemoglobin 6.4, hematocrit 25.0, platelets 260, sodium 151, potassium 6.3, BUN 29, creatinine 2.52, GFR 24, glucose 146, anion gap 28.001, calcium 7.9, lactic acid 21.1 trending down to 15.2, magnesium 4.1, AST 2482, ALT 1430, troponin 2769, BNP 8.48, lipase 31, protein 4.8, albumin 2.7, blood pressure 151/22 trending up to 107/30, heart rate 106, temperature 94.2 F, O2 saturation 97% on ventilator. Head CT showed no acute intracranial abnormality. Patient was started on IV antibiotic regimen vancomycin, please see medication orders section in the computer. On my assessment, patient remains fully intubated, no diaphoresis, no diarrhea, vomiting, no fever. Patient was admitted for further evaluation and medical management. past surgical history; family denies family history: noncontributory past social history: patient lives with the family, denies any smoking, alcohol, drug use 09/06/25: patient seen in ICU. Patient is intubated, on Levophed o, off sedation. Head CT showed diffuse cerebral and cerebellar edema due to anoxic brain injury. neurology following, neurology stated poor prognosis. Kidney functions worsening. Patient's family states before admission patient has seizure-like activity, loss of consciousness which was on and off during the whole day. 09/07/25 40-year-old female in the ICU following cardiopulmonary arrest on 09/04/25, now with severe anoxic brain injury. * Intubated, mechanically ventilated * Off all sedation * No spontaneous movements * No response to pain * No brainstem reflexes: absent corneal, cough, gag, oculocephalic reflexes * Pupils 8 mm, fixed, nonreactive * Family updated todaypoor prognosis discussed, but family chooses FULL CODE and wants everything done Overnight: * Urine output 250 mL total/ 0.15ML/KG/HR * Sams in place, urine [id number] annia * Tube feeds restarted, residuals 15 mL, tolerated * Small bowel movement today * Yamileth-care and sacral wound care performed EEG completed at bedside today for assessment of anoxic injury. Hemodynamics: * On norepinephrine drip for shock Respiratory: * Lungs clear except mild right basal infiltrates Consults: Neurology and Nephrology actively following. 09/08/25 The patient remains critically ill, intubated, mechanically ventilated, and off all sedation since 09/05. Overnight and through today, there continues to be no neurologic improvement. * Mental status unchanged and remains unresponsive/comatose * EEG yesterday inconclusive. Neurology now ordering brain perfusion scan today for brain evaluation * On norepinephrine drip, titrated 8 - 4 mcg/min * CXR today: no major change, persistent bilateral mixed pulmonary opacities and probable small pleural effusions * Oliguria continues * Urine output overnight: 100 mL * Total UO last 24h: 200 mL * Nephrology discontinued Lasix 80 mg BID * Lasix drip started * IR consulted for tunneled dialysis catheter placed today * Plan for hemodialysis/OPERATIONS PLANNER likely tomorrow Patient remains in critical multiorgan dysfunction with severe irreversible anoxic brain injury, worsening renal failure requiring OPERATIONS PLANNER preparation, hemodynamic instability requiring vasopressors, and persistent respiratory failure on the ventilator. No neurologic recovery. Full code per family request. 09/09/25 The patient remains critically ill, intubated, mechanically ventilated, and off all sedation since 09/05. Overnight and through today, there continues to be no neurologic improvement. * Mental status unchanged and remains unresponsive/comatose * EEG yesterday inconclusive . Neurology now ordering brain perfusion scan today for brain evaluation * Oliguria continues * IR consulted tunneled dialysis catheter today * Plan for hemodialysis/OPERATIONS PLANNER likely tomorrow, patient developed b/l upper extremity rash near the right elbow and left antecubital fossa. Patient remains in critical multiorgan dysfunction with severe irreversible anoxic brain injury, worsening renal failure requiring OPERATIONS PLANNER preparation, hemodynamic instability requiring vasopressors, and persistent respiratory failure on the ventilator. No neurologic recovery.Full code per family request. 09/10/25 he patient continues to remain critically ill, unresponsive, mechanically ventilated, off all sedation, with severe anoxic brain injury and no signs of neurologic recovery. Family continues to request FULL CODE and continuation of all aggressive medical care. * Urine output: 0.16 mL/kg/hr (severely oliguric) * Yesterday: Hemodialysis with 700 mL ultrafiltration * Today: Plan for 11.5 L ultrafiltration * Tunneled right IJ permacath placed 09/09 * Lasix drip discontinued * Creatinine 5.9 (improving from 7.58) * Iron studies: * Iron 11 (low),TIBC 204 (low),Saturation 5.4% (severely low),Ferritin 132 * EEG: Severe diffuse cerebral dysfunction consistent with severe hypoxic metabolic encephalopathy * Poor prognosis confirmed by neurology * Brain perfusion nuclear scan scheduled today/tomorrow for brain evaluation * Diffuse purpuric rash spreading over upper extremities and lower extremities * Ecchymosis + petechiae + non-blanching lesions * Rash progression after Unasyn possible beta-lactam hypersensitivity * Unasyn discontinued today * Doxycycline started 09/11/25 The patient was examined at bedside this morning. She remains critically ill, mechanically ventilated, unresponsive, and off all sedation. Today's major update is the nuclear brain perfusion scan showing complete absence of intracranial perfusion with hot-nose sign, radiologically consistent with BRAIN , pending final neurologic confirmation. Family was updated about the extremely poor prognosis; however, they insist on FULL CODE and full aggressive care. * When repositioned, HR drops into 30s returned to baseline after stabilization * SpO2: 98% on FiO2 30% * No fever * Urine output: 0.05 mL/kg/hr (severe oliguria) * HD yesterday removed 1.5 L UF * HD planned again tomorrow 09/12/25 The patient was evaluated at bedside today. She remains intubated, mechanically ventilated, and entirely unresponsive with no sedation on board. Neurology officially confirmed BRAIN today based on: * Absent brainstem reflexes * No spontaneous respiration * Nuclear medicine brain perfusion scan showing complete absence of intracranial perfusion * Clinical brain examination performed and documented This was explained thoroughly to the family. Despite clear communication, the family continues to request FULL CODE status and all aggressive measures, including long-term life support and LTAC placement. A social work assistant/Case Management consult has been placed for LTAC disposition per family request. 09/13/2025 The patient was evaluated today in the ICU. She remains intubated, mechanically ventilated, on Levophed, and unresponsive with no sedation. She is afebrile, normocardic, and with MAP maintained on pressors. Labs today showed drop in Hb to 6.9, for which 1 unit of PRBC was transfused. Creatinine and BUN continue to increase, for which she was dialyzed today. Stool sample were also to evaluate any possible bleeding. Brain has been declared by neurology, family wishes for her to remain FULL CODE at this time. Per Outside Plant Technician, the patient does not qualify for LTAC placement at this time. We will continue to monitor. 09/14/25 The patient was evaluated at bedside today. She remains intubated and mechanically ventilated, without sedation, unresponsive, and with previously confirmed brain (absent brain perfusion, absent brainstem reflexes, nuclear perfusion scan positive for brain ). She continues to exhibit no neurologic function. Family met at bedside today. The irreversible prognosis and confirmed brain status were reviewed again. Family is currently discussing goals of care but for now insists the patient remain FULL CODE with continued aggressive care, including ongoing mechanical ventilation and dialysis as needed. Overnight Interval Events Hemoglobin dropped to 6.6 1 unit PRBC transfused post-transfusion Hgb 8.7 Dialysis removed 2 L Rash continues to improve No major ventilatory changes Hemodynamics fluctuating but stable with vasopressors 09/15/25 The patient was evaluated at bedside today. She remains intubated, mechanically ventilated, unresponsive without sedation. Neurologically, she continues to exhibit no cerebral or brainstem activity, consistent with previously documented brain on nuclear medicine perfusion study. Important new finding today: Despite clinical brain , the patient demonstrates spinal reflex activity, including: * Muscle twitching in upper extremities * Brief fast fasciculatory movements upon touch * Reflexive limb motion during turning and repositioning These findings are consistent with spinal reflex arcs, not cortical activity, and do not contradict brain physiology. Family has not yet decided regarding withdrawal of care and continues to insist on full aggressive measures. A second neurologist is scheduled for repeat confirmatory brain- exam today. Hemodialysis ongoing, with UF goal 1 L. Rash that developed after Unasyn is improving.Thrombocytopenia worsened (platelets 23,000). Hemoglobin dropped again. 09/16/25 The patient was evaluated at bedside today. She remains intubated, mechanically ventilated, and completely unresponsive without sedation. Her neurologic status continues to show no meaningful clinical neurologic function, however spinal reflex activity (muscle twitching on touch and during repositioning) persists, consistent with spinal cordmediated reflexes, not brain activity. A second neurologist completed a full clinical examination yesterday including cold caloric testing, corneal reflex, gag, cough reflex, pain response, and oculovestibular function: * Some isolated spinal reflex muscle activity was noted * Neurologist conclusion: * Does NOT meet full clinical criteria for brain because minimal brainstem reflex activity was detected * However, overall exam consistent with irreversible catastrophic anoxic brain injury * Radiologic findings remain consistent with brain pattern * Prognosis: extremely poor, essentially non-survivable anoxic injury Family was updated at bedside. They are considering terminal weaning, but request more time and have decided for now to continue FULL CODE, FULL AGGRESSIVE CARE. Patient continues on mechanical ventilation, dialysis-dependent KIMI,and poor neurologic prognosis. 09/17/25 The patient was evaluated at bedside today. She remains intubated, mechanically ventilated, profoundly unresponsive, and off all sedation. Her neurologic status is unchanged , consistent with irreversible catastrophic anoxic brain injury, although she does not meet full clinical criteria for formal brain (as per second neurologist evaluation). She continues to demonstrate intermittent spinal reflex activity (muscle twitching with touch or turning), consistent with spinal cordmediated reflexes. The family continues to deliberate regarding terminal weaning. They have not yet decided on the timing and request additional time. Until a final decision is made, they request FULL CODE and full aggressive support. No new acute events overnight. Hemodynamics remain supported with norepinephrine drip, titrated to maintain SPP > 90 mmHg per updated neuro-critical care plan. The patient is scheduled for hemodialysis today, with UF per nephrology recommendations. No other major changes in clinical condition. 09/18/25 The patient underwent hemodialysis yesterday, with 1.9 liters removed, and tolerated the procedure without acute complications. She remains on norepinephrine (LEVOPHED) infusion 58 mcg/min with blood pressures fluctuating between 116/65 and 90/57 mmHg. Repeat chest X-ray today shows increased interstitial prominence, raising concern for mild pulmonary congestion vs early interstitial edema. Most importantly, after multiple family meetings and extensive discussion with neurology and , the family has decided on terminal weaning tomorrow at 11:00 AM. Full supportive measures and full code status will be continued until the time of terminal weaning. 09/19/25: Patient seen and examined at bedside, had a long family discussion today, patient who is her POA was absent due to work, patient's family was determined and willing after her father coming from [place], 09/20/25 The patient underwent hemodialysis yesterday (09/19/25) with 1.0 L ultrafiltration removed, resulting in improvement in BUN (48 improved), creatinine (3.49 from 4.49), and potassium correction (5.4 - 4.2). She continues on norepinephrine (Levo) at 4 mcg/min for blood pressure support. No acute distress noted. Family meeting conducted today the patients family wishes to proceed with terminal weaning next week once the patients father arrives from [place]. Until then, they request continuation of full aggressive care with full code status. Doxycycline discontinued today as the full antibiotic course has been completed. No new overnight events. 09/21/25 Family states they are still waiting for the patients father to arrive from [place] before deciding on terminal weaning with comfort-focused care. Until then, they request continuation of full code and full aggressive management. Todays labs show worsening azotemia (BUN 64, Cr 4.41), hypernatremia (Na 147) likely from insensible losses and decreased free water intake, anemia with Hgb 8.4, thrombocytosis (platelets 566K), and ABG showing respiratory alkalosis with metabolic alkalosis compensation. Hemodialysis is scheduled for tomorrow per nephrology. Loop diuretics resumed. Tube feeding switched to Nepro formula. Free water boluses q4h through G-tube started. PTH level ordered. Respiratory secretions mild. Vent settings changed: respiratory rate decreased from 15 - 14. No acute overnight events. 09/22/25 Family has not yet finalized decision regarding terminal weaning. They request another [id number] meeting today. * On norepinephrine 46 mcg/min, titrated to maintain SPP > 90 and MAP > 65 Hypernatremia: * Sodium remained elevated at [address] at 153 * Tube-feed free water discontinued. * D5W infusion started at 100 mL/hr for controlled serum sodium reduction. * Strict I/O monitoring in place. Objective vital signs Vital Sign Date Time Temp Pulse Resp B/P (MAP) Pulse Ox O2 Delivery O2 Flow Rate FiO2 09/22/25 10:05 85 14 111/71 (84) 98 30 09/22/25 08:00 Mechanical Ventilator+ 09/22/25 08:00 97.7 97.7 Total Intake and Output 09/21/25 09/21/25 09/22/25 15:00 23:00 07:00 Intake Total 790 ml 1121 ml Output Total 1125 ml 1125 ml Balance -335 ml -4 ml medications Current Medications Medications Dose Ordered Sig/Ese Route Start Time Stop Time Status Last Admin Dose Admin Diagnostic Test (Pha) 1 strip ACHS 09/04/25 07:00 09/22/25 09:03 1 STRIP Insulin Human Regular ACHS SC 09/04/25 07:00 09/22/25 04:55 2 UNITS Dextrose 50 ml UD PRN IV 09/04/25 05:15 Pantoprazole Sodium 40 mg DAILY IV 09/06/25 10:00 09/22/25 09:02 40 MG Artificial Tears 1 drop Q4HP PRN EACHEYE 09/08/25 18:00 09/15/25 02:47 1 DROP Epoetin Nahun-epbx 10,000 unit MWF@2100 SC 09/09/25 21:00 09/21/25 21:50 10,000 UNIT Multi-Ingredient Ointment 1 applic DAILY TOP 09/10/25 10:00 09/22/25 09:03 1 APPLIC Norepinephrine Bitartrate 250 ml @ 3.75 mls/hr Q24H IV 09/15/25 08:45 09/22/25 00:59 11.25 MLS/HR Zirconium Oxide 10 gm BID PO 09/19/25 22:00 09/26/25 21:59 09/20/25 10:00 10 GM Bumetanide 1 mg BID IV 09/19/25 22:00 09/22/25 09:02 1 MG Purified Water 200 ml Q4HR GT 09/21/25 18:00 09/22/25 09:02 200 ML Enteral Nutritional Formula 1,000 ml 45ML/HR GT 09/21/25 19:30 Albumin Human 100 ml @ 100 mls/hr PRN PRN IV 09/22/25 05:45 09/22/25 05:48 100 MLS/HR Examination General: Unresponsive, ventilator-dependent. Neuro: No spontaneous movement. No corneal reflexes. Pupils fixed. Spinal reflex movements present (post-anoxic). Respiratory: Mechanically ventilated; breath sounds diminished, coarse bilaterally. CV: Sinus rhythm on monitor; pulses faint but present; norepinephrine-dependent. GI: Abdomen soft, nondistended, tube feeds via OG. : Sams catheter draining clear yellow urine. Extremities: Warm, 1+ edema, no mottling. Skin: Sacral area dry. Diffuse rash regressing. laboratory and microbiology Laboratory Tests 09/22/25 03:26 Test 09/22/25 03:26 Range/Units Serum Glucose 117 H 74-106 mg/dL Microbiology Date/Time Source Procedure Growth Status 09/04/25 23:21 Urine - Sams Port Urine Culture - Final Complete 09/04/25 10:00 Nose MRSA Screen - Final Complete 09/04/25 04:22 Sputum Expectorated Sputum Gram Stain - Final Complete 09/04/25 04:22 Respiratory Culture - Final Staphylococcus aureus Complete 09/04/25 01:40 Blood Blood Culture - Final NO GROWTH AFTER 5 DAYS OF INCUBATION. Complete Problem List/Assessment/Plan Problem List/Assessment/Plan ASSESSMENT /PLAN SYSTEM HODGE Neurology #Catastrophic, irreversible, severe anoxic brain injury; extremely poor prognosis Metabolic encephalopathy (secondary to anoxic injury) * Imaging consistent with brain * Clinical exam does NOT meet full brain- criteria (minimal brainstem reflex activity) * Spinal reflexes present * Prognosis: terminal # History of anxiety # Questionable Seizure like activity -Neurology on board - Neurology stated poor prognosis * Continue neuro checks Q1H * Maintain normothermia * Avoid hypotension/hypoxia * Nuclear brain perfusion scan consistent with brain * EEG: Severe diffuse cerebral dysfunction consistent with severe hypoxic metabolic encephalopathy For now full code. * Family fully understands prognosis and has chosen comfort-focused terminal weaning next week when father arrives * Second neurologist exam does not meet brain criteria but poor prognosis, family updated * Maintain current ventilatory support Cardiology #Postcardiac arrest state (VF arrest - ROSC) #Mixed cardiogenic + septic shock on norepinephrine # heart failure with reduced ejection fraction likely post cardiac arrest # Dyslipidemia # Non ST-elevation myocardial infarction likely type 2 status post cardiac arrest, type 1 not ruled out -Head CT -Ekg -Echo : Conclusion MODERATELY DILATED RV AND IS HYPOKINETIC DYSKINESIS OF IVS RVSP IS 40 MM OF HG AND IS HIGH STUDY CONFIRM RV FAILURE GLOBAL LV HYPOKINESIS LV EF IS 40% AND IS REDUCED NORMAL VALVES NO EFFUSION Maintain SPP (Systolic Perfusion Pressure) > 90 mmHg at all times. * Titrate norepinephrine (LEVOPHED) drip to maintain SPP > 90 mmHg. * Monitor for multi-organ shock progression.* Avoid hypotension to preserve brain perfusion * Cardiology involved * Daily EKG * Trend troponins Given anoxic brain injury, the patient is not a candidate for invasive cardiac work-up as per cardiology continue conservative medical management. * Bradycardia episodes with repositioning move gently Respiratory #Acute hypoxic respiratory failure requiring mechanical ventilation * AC/VC: RR 14, TV 450, PEEP 5, FiO2 30% * VAP bundle * Daily CXR * Oral care Q4H * SBT contraindicated Infectious Disease #MSSA / aspiration pneumonia * STOPPED Unasyn today due to allergic rash * Doxycycline discontinued (course completed) * Continue to monitor rash progression * Monitor sputum, blood, urine cultures * COVID/Flu negative * WBC (mild improvement) Hematology Microcytic anemia # severe anemia requiring blood transfusion -2 unit of PRBC transfused Started on IV IRON # coagulopathy likely due to sepsis Monitor Thrombocytopenia (Plt 124), resolved * * Hgb stable at 7.5 , Discontinued Heparin, transfuse only if <7 * Platelets normal * DVT prophylaxis: Heparin held due to anemia * Use SCDs Renal * KIMI stage 3 on solitary kidney Hyperkalemia improving hypercalcemia hyperphosphatemia *Dialysis-dependent renal failure * Continue daily evaluation for kidney replacement therapy. * Avoid nephrotoxins * Daily BMP, Mg, Phos hyperkalemia Corrected # hypernatremia * D5W infusion initiated at 100 mL/hr * Recheck Na q6h # metabolic acidosis due to sepsis Monitor ABG # respiratory alkalosis Decrease respiratory rate to 12 # hypomagnesemia Monitor Urology # complicated urinary tract infection -on antibiotics # Punctate nonobstructing right renal calculi. Seen on ultrasound # Left nephrectomy. Seen on ultrasound GI Shock liver (AST/ALT markedly elevated) now improving * Continue Nepro tube feeds @ 35 mL/hr * Check residuals Q4H * PPI for ulcer prophylaxis * Monitor stool output * No bowel movement start Senna + Miralax Endocrine * Insulin ACHS * Maintain BG [id number] Skin * Stage 1 sacral ulcer * Wound care following * Reposition Q2H * Beta-lactam hypersensitivity improving Ensure no heparin products (including flushes) STOP beta-lactams (done) Start doxycycline (done) Warm compresses to affected areas Reposition Q2H to reduce pressure contribution NO signs of cellulitis (no warmth) Topical emollients (Aquaphor) to reduce skin breakdown Monitor platelets daily OPHTHALMOLOGY * Conjunctival injection, swollen eyelids * Start Lacri-lube eye drops Q6H LINES / TUBES * ETT (09/04) * OG tube * Left femoral central line (09/04) * Sams catheter Right IJ tunneled dialysis catheter (09/09) * Daily line necessity review PROPHYLAXIS * DVT: SCDs only * GI: Pantoprazole * Ulcer: Q2H turns * VAP: oral care, CHG, HOB elevation SOCIAL WORK / FAMILY SUPPORT Family meeting held * Terminal weaning confirmed but family not deciding on the date * Father en route from [place] * 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 . DISCUSSION WITH ATTENDING Case reviewed in detail with attending physician Dr Salcido. Management plan jointly agreed upon. including the clinical presentation, diagnostic workup, and comprehensive management plan. The patient's family was present for the discussion and demonstrated understanding of his condition and the proposed plan. Plan discussed with: Spouse, Daughter (RN) My Orders My Orders Orders - FRANCIS PRESSLEY RESIDENT Procedure Category Date Status Time Free Water WALTER 09/21/25 In Process 15:05 Abg W/ Co-Ox RT 09/22/25 Logged 04:00 Chest Xray 1 View XY 09/22/25 Resulted 04:00 Nutritional PHA 09/21/25 In Process Supplements (Nepro 19:30 Sodium LAB 09/22/25 Logged 12:00 Sodium LAB 09/22/25 Logged 18:00 Sodium LAB 09/23/25 Verified 00:00 Sodium LAB 09/23/25 Verified 06:00 Sodium LAB 09/23/25 Verified 12:00 Sodium LAB 09/23/25 Verified 18:00 Sodium LAB 09/24/25 Verified 00:00 Sodium LAB 09/24/25 Verified 06:00 Sodium LAB 09/24/25 Verified 12:00 Sodium LAB 09/24/25 Verified 18:00 Dietary Evaluation Review Comments: 1. nepro 35/hr providing 68g pro, 1487kcal, 611ml free water, meeting 107% energy needs, 80% protein needs 2. Increase amount of Protein support for wound healing when/if pt's kidney function impvoes. F/U and reassess when pt is off vent and PRN. Expected Outcomes/Goals: Adequate nutrition support for being on mechanical ventilation CC Plasma Assessment Blood Product Administration S: 06:05 FRANCIS PRESSLEY RESIDENT Sep 22, 2025 10:54
[2025-09-22] MEDS ORDERED: FREE WATER GT SCH (11:15)
--- NOTE | 2025-09-22 11:59 | DVHPN2 ---
Progress Note Date Seen: Sep 22, 2025 Resident Creating Document: CHIDI BOWERS RESIDENT Has the PT tested + for MRSA If YES, has PT been informed?: No Medical Necessity Reason Pt with a Central, PICC or Fol: Yes The following are medically ne: Central Line, Sams Catheter Subjective Review of Systems Patient seen and examined at the bedside. Unable to obtain ROS due to patient's clinical status patient is currently Sedated and intubated. Review of Systems: RESPIRATORY:Abnormal Other Systems: Patient seen and examined by myself today on rounds with the medicine resident, I agree with his assessment and plan Patient remained intubated on ventilator Patient examined hemodialysis, blood pressure stable Objective vital signs Vital Sign Date Time Temp Pulse Resp B/P (MAP) Pulse Ox O2 Delivery O2 Flow Rate FiO2 09/22/25 11:15 84 13 104/77 (86) 98 09/22/25 11:13 30 09/22/25 10:00 Mechanical Ventilator+ 09/22/25 08:00 97.7 97.7 Total Intake and Output 09/21/25 09/21/25 09/22/25 15:00 23:00 07:00 Intake Total 790 ml 1121 ml Output Total 1125 ml 1125 ml Balance -335 ml -4 ml medications Current Medications Medications Dose Ordered Sig/Ese Route Start Time Stop Time Status Last Admin Dose Admin Diagnostic Test (Pha) 1 strip ACHS 09/04/25 07:00 09/22/25 11:32 1 STRIP Insulin Human Regular ACHS SC 09/04/25 07:00 09/22/25 04:55 2 UNITS Dextrose 50 ml UD PRN IV 09/04/25 05:15 Pantoprazole Sodium 40 mg DAILY IV 09/06/25 10:00 09/22/25 09:02 40 MG Artificial Tears 1 drop Q4HP PRN EACHEYE 09/08/25 18:00 09/15/25 02:47 1 DROP Epoetin Nahun-epbx 10,000 unit MWF@2100 [place] 09/09/25 21:00 09/21/25 21:50 10,000 UNIT Multi-Ingredient Ointment 1 applic DAILY TOP 09/10/25 10:00 09/22/25 09:03 1 APPLIC Norepinephrine Bitartrate 250 ml @ 3.75 mls/hr Q24H IV 09/15/25 08:45 09/22/25 00:59 11.25 MLS/HR Zirconium Oxide 10 gm BID PO 09/19/25 22:00 09/26/25 21:59 09/20/25 10:00 10 GM Bumetanide 1 mg BID IV 09/19/25 22:00 09/22/25 09:02 1 MG Enteral Nutritional Formula 1,000 ml 45ML/HR GT 09/21/25 19:30 Albumin Human 100 ml @ 100 mls/hr PRN PRN IV 09/22/25 05:45 09/22/25 05:48 100 MLS/HR Dextrose 1,000 ml @ 100 mls/hr Q10H IV 09/22/25 11:15 Examination General Appearance: mild distress, Other (Intubated, on vent) HEENT: Atraumatic, PERRLA, Other Lungs: Slightly diminished sounds Cardiovascular: Normal S1, Normal S2 Abdomen: Normal bowel sounds, Soft, No tenderness, No hepatosplenomegaly, No masses Genitourinary: Sams catheter Musculoskeletal: Trace edema Neuro: Unable to assess Skin: Dry, Intact laboratory and microbiology Laboratory Tests 09/22/25 03:26 Test 09/22/25 03:26 Range/Units Serum Glucose 117 H 74-106 mg/dL Microbiology Date/Time Source Procedure Growth Status 09/04/25 23:21 Urine - Sams Port Urine Culture - Final Complete 09/04/25 10:00 Nose MRSA Screen - Final Complete 09/04/25 04:22 Sputum Expectorated Sputum Gram Stain - Final Complete 09/04/25 04:22 Respiratory Culture - Final Staphylococcus aureus Complete 09/04/25 01:40 Blood Blood Culture - Final NO GROWTH AFTER 5 DAYS OF INCUBATION. Complete Labs and/or images reviewed: Labs reviewed by me, Image(s) reviewed by me Problem List/Assessment/Plan Problem List/Assessment/Plan KIMI, from [facility]N due to cardiac arrest requiring hemodialysis Hypernatremia Acute respiratory failure, intubated on ventilator Status post cardiac arrest Anoxic encephalopathy Cardiogenic/septic shock NSTEMI Plan/recommendation: Continue with UF one L as tolerated Watch for renal recovery with increased urine output D5W often as 100 mL/hour lokelma TID due to hyperkalemia Epogen 68861 subQ 3 times weekly Strict I&Os, loop diuretic resumed nepro tube feeding, phos , pth level Monitor urinary output ,improved Vasopressor per primary team Avoid nephrotoxic medication Ct head--anoxic encephalopathy EEG/perfusion scan showed anoxic brain injury, defer to neurology and primary for retirement care and management Poor prognosis Case discussed with the Dr. Barrera Plan discussed with: Other (rn) Dietary Evaluation Review Comments: 1. nepro 35/hr providing 68g pro, 1487kcal, 611ml free water, meeting 107% energy needs, 80% protein needs 2. Increase amount of Protein support for wound healing when/if pt's kidney function impvoes. F/U and reassess when pt is off vent and PRN. Expected Outcomes/Goals: Adequate nutrition support for being on mechanical ventilation CC Plasma Assessment Blood Product Administration S: 06:05 CHIDI BOWERS RESIDENT Sep 22, 2025 11:59 CARISSA BARRERA MD Sep 22, 2025 15:01
[2025-09-22] MEDS: D5W 5% 1,000 ML IV SCH (12:09)
[2025-09-22] MEDS: EPOETIN ALFA-EPBX 10,000 UNIT/1ML VIAL SC ONE (20:27)
[2025-09-23] VITALS (108 sets, daily range): BP systolic 84–120; BP diastolic 47–79; PULSE 83–94; RESP 10–17; TEMP 99–99.7; O2SAT 97–100
--- NOTE | 2025-09-23 00:42 | DVHPN2 ---
Progress Note - Dictate Date Seen: Sep 22, 2025 Has the PT tested + for MRSA If YES, has PT been informed?: No Medical Necessity Reason Pt with a Central, PICC or Fol: Yes The following are medically ne: Central Line, Sams Catheter Subjective Patient was seen and evaluated in follow up in the ICU. Patient is intubated on ventilator. FiO2 30%. Patient on tube feedings for nutritional support. Patient has spontaneous or pain evoked decerebrate posturing. Family has not yet finalized decision regarding terminal weaning. They are request another [id number] meeting today. 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 Chest x-ray shows similar position of the support lines and tubes. Hazy right mid to lower lung zone consolidation. vital signs Vital Sign Date Time Temp Pulse Resp B/P (MAP) Pulse Ox O2 Delivery O2 Flow Rate FiO2 09/22/25 14:26 83 14 114/61 (78) 98 30 09/22/25 12:00 Mechanical Ventilator+ 09/22/25 08:00 97.7 97.7 Total Intake and Output 09/21/25 09/21/25 09/22/25 15:00 23:00 07:00 Intake Total 790 ml 1121 ml Output Total 1125 ml 1125 ml Balance -335 ml -4 ml medications Current Medications Medications Dose Ordered Sig/Ese Route Start Time Stop Time Status Last Admin Dose Admin Diagnostic Test (Pha) 1 strip ACHS 09/04/25 07:00 09/22/25 11:32 1 STRIP Insulin Human Regular ACHS SC 09/04/25 07:00 09/22/25 04:55 2 UNITS Dextrose 50 ml UD PRN IV 09/04/25 05:15 Pantoprazole Sodium 40 mg DAILY IV 09/06/25 10:00 09/22/25 09:02 40 MG Artificial Tears 1 drop Q4HP PRN EACHEYE 09/08/25 18:00 09/15/25 02:47 1 DROP Epoetin Nahun-epbx 10,000 unit MWF@2100 [place] 09/09/25 21:00 09/21/25 21:50 10,000 UNIT Multi-Ingredient Ointment 1 applic DAILY TOP 09/10/25 10:00 09/22/25 09:03 1 APPLIC Norepinephrine Bitartrate 250 ml @ 3.75 mls/hr Q24H IV 09/15/25 08:45 09/22/25 00:59 11.25 MLS/HR Zirconium Oxide 10 gm BID PO 09/19/25 22:00 09/26/25 21:59 09/20/25 10:00 10 GM Bumetanide 1 mg BID IV 09/19/25 22:00 09/22/25 09:02 1 MG Enteral Nutritional Formula 1,000 ml 45ML/HR GT 09/21/25 19:30 Albumin Human 100 ml @ 100 mls/hr PRN PRN IV 09/22/25 05:45 09/22/25 05:48 100 MLS/HR Dextrose 1,000 ml @ 100 mls/hr Q10H IV 09/22/25 11:15 09/22/25 12:09 100 MLS/HR objective GENERAL: Ill appearing, intubated on ventilator. EYES: PERRL, EOMI. Anicteric. HENT: Moist mucous membranes. LUNGS: Decreased breath sounds. CARDIOVASCULAR: Regular rate and rhythm. ABDOMEN: Soft, nontender and nondistended. EXTREMITIES: No edema. SKIN: Warm, dry. laboratory and microbiology Laboratory Tests 09/22/25 12:58 09/22/25 03:26 Test 09/22/25 03:26 Range/Units Serum Glucose 117 H 74-106 mg/dL Problem List Cardiopulmonary arrest with ROSC. Ventricular fibrillation arrest with defibrillation at 100J. Non ST-elevation myocardial infarction. Acute anemia status post blood transfusion (-FOBT). Acute hypoxic respiratory failure. Likely KIMI on CKD. Left nephrectomy. Shocked Liver. Dyslipidemia, newly diagnosed. Cerebral and cerebellar edema, anoxic brain injury. ? Suspected PE with RV failure and PAH. Assessment/Plan Continued all current supportive medical care. Diuretics with Bumex. Vasopressors for hemodynamic support. GI prophylactics. Additional plan as per the hospital course. Critical care time of 45 minutes provided to include time spent evaluation of patient at bedside, when appropriate patient/family education for diagnosis, treatment plan, review of pertinent medical information and discussion of care with specialty providers and PCP. Mechanical ventilator parameters, treatment and adjustments have personally been reviewed by me and treatment plan by professor of management has also been reviewed. Dietary Evaluation Review Comments: 1. nepro 35/hr providing 68g pro, 1487kcal, 611ml free water, meeting 107% energy needs, 80% protein needs 2. Increase amount of Protein support for wound healing when/if pt's kidney function impvoes. F/U and reassess when pt is off vent and PRN. Expected Outcomes/Goals: Adequate nutrition support for being on mechanical ventilation Plan discussed with: Other CC Plasma Assessment Blood Product Administration S: 06:05 RISHI SOARES MD Sep 22, 2025 15:14
[2025-09-23 04:00] LABS: Hemoglobin 8.9 g/dL (12.2-16.2); Mean Corpuscular Volume 72.9 fL (80.0-100.0)
[2025-09-23 04:04] LABS: Hematocrit 28.1 % (36.0-46.0); Mean Corpuscular Hemoglobin 23.0 pg (28.0-32.0); Nucleated Red Blood Cells % 0.2 %
[2025-09-23 04:20] LABS: Albumin 3.4 g/dL (3.2-4.8); Anion Gap 12 (5-15); BUN/Creatinine Ratio 14.4 (10.0-20.0); Carbon Dioxide 31 mmol/L (20-31); Chloride 99 mmol/L (98-107); Magnesium 2.2 mg/dL (1.6-2.6); Potassium 4.3 mmol/L (3.5-5.1); Sodium 142 mmol/L (136-145); Total Protein 7.4 g/dL (5.7-8.2)
[2025-09-23 04:26] LABS: Alanine Aminotransferase 48 U/L (7-40); Alkaline Phosphatase 501 U/L (46-116); Bilirubin, Total 0.3 mg/dL (0.2-1.0); Blood Urea Nitrogen 45 mg/dL (9-23); Calcium 12.7 mg/dL (8.7-10.4); Glucose 119 mg/dL (74-106)
--- NOTE | 2025-09-23 05:13 | DVH ---
CHEST RADIOGRAPH Indication: Acute hypoxic respiratory failure, evaluate for pneumonia. Technique: Single frontal view of the chest was obtained Comparison: Chest radiograph dated 09/22/2025. FINDINGS: Lines and Tubes: Right central venous catheter terminates in the superior vena cava. The enteric tube passes below the left hemidiaphragm and the tip extends outside the field of view. The endotracheal tube terminates 3.0 cm terminates above the osmel. Lungs: Hazy right lung opacities similar to prior study. Pleura: No effusion. No pneumothorax. Cardiomediastinal contours: Unremarkable Bones: Unremarkable IMPRESSION: 1. Support tubes in appropriate position. 2. Hazy right lung opacities similar to prior study.
[2025-09-23 08:37] LABS: Base Excess 1.8 mmol/L (-2.0-3.0)
--- NOTE | 2025-09-23 10:42 | DVHPN2 ---
Progress Note - Dictate Date Seen: Sep 23, 2025 Has the PT tested + for MRSA If YES, has PT been informed?: No Medical Necessity Reason Pt with a Central, PICC or Fol: Yes The following are medically ne: Central Line, Sams Catheter Subjective Ms. Murillo is a 40 years old female with a history of kidney stone, depression, anxiety, she was brought to the [facility] on 09/04/2025 with a chief complaint of cardio pulmonary arrest I have seen and examined the patient, talked to her nurse. Her pupils are fixed, no gag reflexes, Rt: 7mm, Lt: 8mm. She has spontaneous or pain/touch evoked decerebrate posturing Urinalysis, 09/04/2025: WBC: 37, urine leukocyte esterase: Negative UDS, 09/04/2025: Negative Plasma alcohol, 09/04/2025: <3 ABG, 09/10/2025: Metabolic acidosis WBC/HB/PLT/MCV, 09/04/2025: 8.8/6.4/260/79.8 PT/INR/ABG, 09/04/2025: 70.4/1.73/ Na, 09/04/2025: 151, 148, 140 K, 09/04/2025: 6.3, 4.6, 3.2 BUN/CR, 09/04/2025: 30/2.69 09/12/25: 60 4/5.45 GFR, 09/12/2025: Nine TBI/AST/ALT/AP, 09/04/2025: 0.11/2481/4030/74, 0.01/5737/2100/93, 09/12/25: 0.2/148/180/165 Glucose, 09/04/2025: 146, 294, 503 HGB A1c, 09/04/2025: 5 Lactic acid, 09/04/2025: 21.1, or 15.2 Troponin one high sensitivity, 09/04/2025: 2769, 5664, 7574 TG/HDL/LDL/HDL, 09/04/2025: 186/86/41/25 Extremity venous study, 09/04/2025: NO SONOGRAPHIC EVIDENCE FOR DEEP VENOUS THROMBOSIS IN THE BILATERAL LOWER EXTREMITY VEINS Cerebral flow, 09/10/2025: Findings likely representing brain however clinical correlation is needed. Chest x-ray, 09/12/2025: Probable small bilateral pleural effusions with mild bibasilar atelectatic changes. CT head, 09/04/25: No acute intracranial abnormality (I saw evidence suggestive of early diffuse brain edema) CT head 09/05/25: Findings are consistent with severe diffuse cerebral and cerebellar edema possibly representing anoxic brain injury. vital signs Vital Sign Date Time Temp Pulse Resp B/P (MAP) Pulse Ox O2 Delivery O2 Flow Rate FiO2 09/23/25 10: 89 14 106/67 (80) 99 30 09/23/25 08:00 Mechanical Ventilator+ 09/23/25 04:00 99.0 99.0 Total Intake and Output 09/22/25 09/22/25 09/23/25 15:00 23:00 07:00 Intake Total 300 ml 1540 ml 828 ml Output Total 525 ml 950 ml Balance 300 ml 1015 ml -122 ml medications Current Medications Medications Dose Ordered Sig/Ese Route Start Time Stop Time Status Last Admin Dose Admin Diagnostic Test (Pha) 1 strip ACHS 09/04/25 07:00 09/23/25 06:31 1 STRIP Insulin Human Regular ACHS SC 09/04/25 07:00 09/22/25 16:32 2 UNITS Dextrose 50 ml UD PRN IV 09/04/25 05:15 Pantoprazole Sodium 40 mg DAILY IV 09/06/25 10:00 09/23/25 09:08 40 MG Artificial Tears 1 drop Q4HP PRN EACHEYE 09/08/25 18:00 09/15/25 02:47 1 DROP Epoetin Nahun-epbx 10,000 unit MWF@2100 [place] 09/09/25 21:00 09/21/25 21:50 10,000 UNIT Multi-Ingredient Ointment 1 applic DAILY TOP 09/10/25 10:00 09/23/25 09:03 1 APPLIC Norepinephrine Bitartrate 250 ml @ 3.75 mls/hr Q24H IV 09/15/25 08:45 09/23/25 09:03 15 MLS/HR Zirconium Oxide 10 gm BID PO 09/19/25 22:00 09/26/25 21:59 09/20/25 10:00 10 GM Bumetanide 1 mg BID IV 09/19/25 22:00 09/23/25 09:03 1 MG Enteral Nutritional Formula 1,000 ml 45ML/HR GT 09/21/25 19:30 Albumin Human 100 ml @ 100 mls/hr PRN PRN IV 09/22/25 05:45 09/22/25 05:48 100 MLS/HR Dextrose 1,000 ml @ 100 mls/hr Q10H IV 09/22/25 11:15 09/23/25 09:04 100 MLS/HR objective The patient is well-nourished and well-developed with no distress. The patient is intubated MENTAL STATUS: Nonresponsive stroke painful stimuli CRANIAL NERVES: Pupils are equal, round, and fixed. There are no corneal reflexes and no doll's eyes phenomenon. No signs of facial weakness. There are no gagging or coughing reflexes SENSATION: No responses to strong pain stimuli. MOTOR: Normal muscle bulk. No fasciculations. No spontaneous movement. Increased muscle tone in the left upper extremity. See subjective REFLEXES: Deep tendon reflexes are symmetrical. No pathological reflexes. CEREBELLAR/COORDINATION: Deferred GAIT/STATION: deferred. laboratory and microbiology Laboratory Tests 09/23/25 05:30 09/23/25 02:49 Test 09/23/25 02:49 Range/Units Serum Glucose 119 H 74-106 mg/dL Problem List Cardiopulmonary arrest Coma/Metabolic/hypoxic encephalopathy Metabolic acidosis Acute respiratory failure Elevated troponin/heart attack Severe anemia Shocked liver Hypernatremia Increased muscle tone in the left arm Decerebrate posturing Assessment/Plan Monitoring Supportive treatment ICU care Follow up labs Stabilize vitals/pressor drip Respiratory support/vent management Oxygen Antibiotics DVT prophylaxis GI prophylaxis More recommendation per clinical course Poor prognosis for meaningful/overall recovery This medical document was created using an electronic medical record system with [employer] dictation system. Although this document has been carefully reviewed, there may still be some phonetic and typographical errors. These areas are purely typographical due to imperfections of the software programs, and do not reflect any compromise in the patient's medical care. Prognosis poor Dietary Evaluation Review Comments: 1. nepro 35/hr providing 68g pro, 1487kcal, 611ml free water, meeting 107% energy needs, 80% protein needs 2. Increase amount of Protein support for wound healing when/if pt's kidney function impvoes. F/U and reassess when pt is off vent and PRN. Expected Outcomes/Goals: Adequate nutrition support for being on mechanical ventilation Plan discussed with: Other CC Plasma Assessment Blood Product Administration S: 06:05 ALEXIS DEL ANGEL MD Sep 23, 2025 10:42
--- NOTE | 2025-09-23 11:14 | DVHPNRES ---
Progress Note Date Seen: Sep 23, 2025 Resident Creating Document: FRANCIS PRESSLEY RESIDENT Has the PT tested + for MRSA If YES, has PT been informed?: No Medical Necessity Reason Pt with a Central, PICC or Fol: Yes The following are medically ne: Central Line, Sams Catheter Subjective Review of Systems The patient is a 40-year-old female with past medical history of anxiety, UTIs, and kidney stones who presented to [facility] ED for evaluation of cardiac arrest. As reported by EMS/family, patient had cardiac arrest, was asystole 1238 a.m., CPR initiated by family. Patient was initially anxious but was not having any complaints like chest pain or shortness of breath. EMS were on the scene within 5 minutes, CPR continued, patient was given IV fluid, epinephrine x2, became VFib so patient was shocked at 100 joules, Narcan given, became asystole again upon arrival at ER at 0108 hours, blood sugar upon arrival was 43, ROSC obtained at 0112 a.m. Family also reports that patient was depressed for the past 5 years, she has been staying in bed with decreased oral intake, had a fall injury in April resulting in arm and hip fracture. They denied any other significant past medical history. Patient was seen and evaluated in the ED, laboratory data shows WBC 8.8, hemoglobin 6.4, hematocrit 25.0, platelets 260, sodium 151, potassium 6.3, BUN 29, creatinine 2.52, GFR 24, glucose 146, anion gap 28.001, calcium 7.9, lactic acid 21.1 trending down to 15.2, magnesium 4.1, AST 2482, ALT 1430, troponin 2769, BNP 8.48, lipase 31, protein 4.8, albumin 2.7, blood pressure 151/22 trending up to 107/30, heart rate 106, temperature 94.2 F, O2 saturation 97% on ventilator. Head CT showed no acute intracranial abnormality. Patient was started on IV antibiotic regimen vancomycin, please see medication orders section in the computer. On my assessment, patient remains fully intubated, no diaphoresis, no diarrhea, vomiting, no fever. Patient was admitted for further evaluation and medical management. past surgical history; family denies family history: noncontributory past social history: patient lives with the family, denies any smoking, alcohol, drug use 09/06/25: patient seen in ICU. Patient is intubated, on Levophed o, off sedation. Head CT showed diffuse cerebral and cerebellar edema due to anoxic brain injury. neurology following, neurology stated poor prognosis. Kidney functions worsening. Patient's family states before admission patient has seizure-like activity, loss of consciousness which was on and off during the whole day. 09/07/25 40-year-old female in the ICU following cardiopulmonary arrest on 09/04/25, now with severe anoxic brain injury. * Intubated, mechanically ventilated * Off all sedation * No spontaneous movements * No response to pain * No brainstem reflexes: absent corneal, cough, gag, oculocephalic reflexes * Pupils 8 mm, fixed, nonreactive * Family updated todaypoor prognosis discussed, but family chooses FULL CODE and wants everything done Overnight: * Urine output 250 mL total/ 0.15ML/KG/HR * Sams in place, urine [id number] annia * Tube feeds restarted, residuals 15 mL, tolerated * Small bowel movement today * Yamileth-care and sacral wound care performed EEG completed at bedside today for assessment of anoxic injury. Hemodynamics: * On norepinephrine drip for shock Respiratory: * Lungs clear except mild right basal infiltrates Consults: Neurology and Nephrology actively following. 09/08/25 The patient remains critically ill, intubated, mechanically ventilated, and off all sedation since 09/05. Overnight and through today, there continues to be no neurologic improvement. * Mental status unchanged and remains unresponsive/comatose * EEG yesterday inconclusive. Neurology now ordering brain perfusion scan today for brain evaluation * On norepinephrine drip, titrated 8 - 4 mcg/min * CXR today: no major change, persistent bilateral mixed pulmonary opacities and probable small pleural effusions * Oliguria continues * Urine output overnight: 100 mL * Total UO last 24h: 200 mL * Nephrology discontinued Lasix 80 mg BID * Lasix drip started * IR consulted for tunneled dialysis catheter placed today * Plan for hemodialysis/CHIEF NURSE ANESTHETIST likely tomorrow Patient remains in critical multiorgan dysfunction with severe irreversible anoxic brain injury, worsening renal failure requiring CHIEF NURSE ANESTHETIST preparation, hemodynamic instability requiring vasopressors, and persistent respiratory failure on the ventilator. No neurologic recovery. Full code per family request. 09/09/25 The patient remains critically ill, intubated, mechanically ventilated, and off all sedation since 09/05. Overnight and through today, there continues to be no neurologic improvement. * Mental status unchanged and remains unresponsive/comatose * EEG yesterday inconclusive . Neurology now ordering brain perfusion scan today for brain evaluation * Oliguria continues * IR consulted tunneled dialysis catheter today * Plan for hemodialysis/CHIEF NURSE ANESTHETIST likely tomorrow, patient developed b/l upper extremity rash near the right elbow and left antecubital fossa. Patient remains in critical multiorgan dysfunction with severe irreversible anoxic brain injury, worsening renal failure requiring CHIEF NURSE ANESTHETIST preparation, hemodynamic instability requiring vasopressors, and persistent respiratory failure on the ventilator. No neurologic recovery.Full code per family request. 09/10/25 he patient continues to remain critically ill, unresponsive, mechanically ventilated, off all sedation, with severe anoxic brain injury and no signs of neurologic recovery. Family continues to request FULL CODE and continuation of all aggressive medical care. * Urine output: 0.16 mL/kg/hr (severely oliguric) * Yesterday: Hemodialysis with 700 mL ultrafiltration * Today: Plan for 11.5 L ultrafiltration * Tunneled right IJ permacath placed 09/09 * Lasix drip discontinued * Creatinine 5.9 (improving from 7.58) * Iron studies: * Iron 11 (low),TIBC 204 (low),Saturation 5.4% (severely low),Ferritin 132 * EEG: Severe diffuse cerebral dysfunction consistent with severe hypoxic metabolic encephalopathy * Poor prognosis confirmed by neurology * Brain perfusion nuclear scan scheduled today/tomorrow for brain evaluation * Diffuse purpuric rash spreading over upper extremities and lower extremities * Ecchymosis + petechiae + non-blanching lesions * Rash progression after Unasyn possible beta-lactam hypersensitivity * Unasyn discontinued today * Doxycycline started 09/11/25 The patient was examined at bedside this morning. She remains critically ill, mechanically ventilated, unresponsive, and off all sedation. Today's major update is the nuclear brain perfusion scan showing complete absence of intracranial perfusion with hot-nose sign, radiologically consistent with BRAIN , pending final neurologic confirmation. Family was updated about the extremely poor prognosis; however, they insist on FULL CODE and full aggressive care. * When repositioned, HR drops into 30s returned to baseline after stabilization * SpO2: 98% on FiO2 30% * No fever * Urine output: 0.05 mL/kg/hr (severe oliguria) * HD yesterday removed 1.5 L UF * HD planned again tomorrow 09/12/25 The patient was evaluated at bedside today. She remains intubated, mechanically ventilated, and entirely unresponsive with no sedation on board. Neurology officially confirmed BRAIN today based on: * Absent brainstem reflexes * No spontaneous respiration * Nuclear medicine brain perfusion scan showing complete absence of intracranial perfusion * Clinical brain examination performed and documented This was explained thoroughly to the family. Despite clear communication, the family continues to request FULL CODE status and all aggressive measures, including long-term life support and LTAC placement. A social professionals/Case Management consult has been placed for LTAC disposition per family request. 09/13/2025 The patient was evaluated today in the ICU. She remains intubated, mechanically ventilated, on Levophed, and unresponsive with no sedation. She is afebrile, normocardic, and with MAP maintained on pressors. Labs today showed drop in Hb to 6.9, for which 1 unit of PRBC was transfused. Creatinine and BUN continue to increase, for which she was dialyzed today. Stool sample were also to evaluate any possible bleeding. Brain has been declared by neurology, family wishes for her to remain FULL CODE at this time. Per Software Product Specialist, the patient does not qualify for LTAC placement at this time. We will continue to monitor. 09/14/25 The patient was evaluated at bedside today. She remains intubated and mechanically ventilated, without sedation, unresponsive, and with previously confirmed brain (absent brain perfusion, absent brainstem reflexes, nuclear perfusion scan positive for brain ). She continues to exhibit no neurologic function. Family met at bedside today. The irreversible prognosis and confirmed brain status were reviewed again. Family is currently discussing goals of care but for now insists the patient remain FULL CODE with continued aggressive care, including ongoing mechanical ventilation and dialysis as needed. Overnight Interval Events Hemoglobin dropped to 6.6 1 unit PRBC transfused post-transfusion Hgb 8.7 Dialysis removed 2 L Rash continues to improve No major ventilatory changes Hemodynamics fluctuating but stable with vasopressors 09/15/25 The patient was evaluated at bedside today. She remains intubated, mechanically ventilated, unresponsive without sedation. Neurologically, she continues to exhibit no cerebral or brainstem activity, consistent with previously documented brain on nuclear medicine perfusion study. Important new finding today: Despite clinical brain , the patient demonstrates spinal reflex activity, including: * Muscle twitching in upper extremities * Brief fast fasciculatory movements upon touch * Reflexive limb motion during turning and repositioning These findings are consistent with spinal reflex arcs, not cortical activity, and do not contradict brain physiology. Family has not yet decided regarding withdrawal of care and continues to insist on full aggressive measures. A second neurologist is scheduled for repeat confirmatory brain- exam today. Hemodialysis ongoing, with UF goal 1 L. Rash that developed after Unasyn is improving.Thrombocytopenia worsened (platelets 23,000). Hemoglobin dropped again. 09/16/25 The patient was evaluated at bedside today. She remains intubated, mechanically ventilated, and completely unresponsive without sedation. Her neurologic status continues to show no meaningful clinical neurologic function, however spinal reflex activity (muscle twitching on touch and during repositioning) persists, consistent with spinal cordmediated reflexes, not brain activity. A second neurologist completed a full clinical examination yesterday including cold caloric testing, corneal reflex, gag, cough reflex, pain response, and oculovestibular function: * Some isolated spinal reflex muscle activity was noted * Neurologist conclusion: * Does NOT meet full clinical criteria for brain because minimal brainstem reflex activity was detected * However, overall exam consistent with irreversible catastrophic anoxic brain injury * Radiologic findings remain consistent with brain pattern * Prognosis: extremely poor, essentially non-survivable anoxic injury Family was updated at bedside. They are considering terminal weaning, but request more time and have decided for now to continue FULL CODE, FULL AGGRESSIVE CARE. Patient continues on mechanical ventilation, dialysis-dependent KIMI,and poor neurologic prognosis. 09/17/25 The patient was evaluated at bedside today. She remains intubated, mechanically ventilated, profoundly unresponsive, and off all sedation. Her neurologic status is unchanged , consistent with irreversible catastrophic anoxic brain injury, although she does not meet full clinical criteria for formal brain (as per second neurologist evaluation). She continues to demonstrate intermittent spinal reflex activity (muscle twitching with touch or turning), consistent with spinal cordmediated reflexes. The family continues to deliberate regarding terminal weaning. They have not yet decided on the timing and request additional time. Until a final decision is made, they request FULL CODE and full aggressive support. No new acute events overnight. Hemodynamics remain supported with norepinephrine drip, titrated to maintain SPP > 90 mmHg per updated neuro-critical care plan. The patient is scheduled for hemodialysis today, with UF per nephrology recommendations. No other major changes in clinical condition. 09/18/25 The patient underwent hemodialysis yesterday, with 1.9 liters removed, and tolerated the procedure without acute complications. She remains on norepinephrine (LEVOPHED) infusion 58 mcg/min with blood pressures fluctuating between 116/65 and 90/57 mmHg. Repeat chest X-ray today shows increased interstitial prominence, raising concern for mild pulmonary congestion vs early interstitial edema. Most importantly, after multiple family meetings and extensive discussion with neurology and , the family has decided on terminal weaning tomorrow at 11:00 AM. Full supportive measures and full code status will be continued until the time of terminal weaning. 09/19/25: Patient seen and examined at bedside, had a long family discussion today, patient who is her POA was absent due to work, patient's family was determined and willing after her father coming from [place], 09/20/25 The patient underwent hemodialysis yesterday (09/19/25) with 1.0 L ultrafiltration removed, resulting in improvement in BUN (48 improved), creatinine (3.49 from 4.49), and potassium correction (5.4 - 4.2). She continues on norepinephrine (Levo) at 4 mcg/min for blood pressure support. No acute distress noted. Family meeting conducted today the patients family wishes to proceed with terminal weaning next week once the patients father arrives from [place]. Until then, they request continuation of full aggressive care with full code status. Doxycycline discontinued today as the full antibiotic course has been completed. No new overnight events. 09/21/25 Family states they are still waiting for the patients father to arrive from [place] before deciding on terminal weaning with comfort-focused care. Until then, they request continuation of full code and full aggressive management. Todays labs show worsening azotemia (BUN 64, Cr 4.41), hypernatremia (Na 147) likely from insensible losses and decreased free water intake, anemia with Hgb 8.4, thrombocytosis (platelets 566K), and ABG showing respiratory alkalosis with metabolic alkalosis compensation. Hemodialysis is scheduled for tomorrow per nephrology. Loop diuretics resumed. Tube feeding switched to Nepro formula. Free water boluses q4h through G-tube started. PTH level ordered. Respiratory secretions mild. Vent settings changed: respiratory rate decreased from 15 - 14. No acute overnight events. 09/22/25 Family has not yet finalized decision regarding terminal weaning. They request another [id number] meeting today. * On norepinephrine 46 mcg/min, titrated to maintain SPP > 90 and MAP > 65 Hypernatremia: * Sodium remained elevated at [address] at 153 * Tube-feed free water discontinued. * D5W infusion started at 100 mL/hr for controlled serum sodium reduction. * Strict I/O monitoring in place. Patient was examined at bedside today. She remains unresponsive, intubated, mechanically ventilated, off all sedation, with no purposeful movements. Prior spinal reflex/twitching may still be present but no new neurologic activity is reported. Hemodynamics remain relatively stable on current ICU support. No reported fevers. Oxygenation and ventilation are stable on unchanged ventilator settings. Langston interval changes today: * Na improved to 142 (from 153 previously) * BUN 45, Cr 3.13 (improved from prior higher values) * CXR: Hazy bilateral opacities unchanged from yesterday; consistent with prior pulmonary congestion/infiltrates. Family / Goals of Care: * Family has confirmed they want terminal weaning but have not yet chosen the exact date. * They do NOT want PEG tube or tracheostomy and decline escalation to those procedures. * They want to continue full code and all current ICU-level medical management (including ventilator, pressors, dialysis, nutrition) except PEG and trach, until terminal weaning is performed. No new procedures today. Objective vital signs Vital Sign Date Time Temp Pulse Resp B/P (MAP) Pulse Ox O2 Delivery O2 Flow Rate FiO2 09/23/25 10:25 89 14 106/67 (80) 99 30 09/23/25 08:00 Mechanical Ventilator+ 09/23/25 04:00 99.0 99.0 Total Intake and Output 09/22/25 09/22/25 09/23/25 14:59 22:59 06:59 Intake Total 200 ml 1540 ml 928 ml Output Total 525 ml 950 ml Balance 200 ml 1015 ml -22 ml medications Current Medications Medications Dose Ordered Sig/Ese Route Start Time Stop Time Status Last Admin Dose Admin Diagnostic Test (Pha) 1 strip ACHS 09/04/25 07:00 09/23/25 06:31 1 STRIP Insulin Human Regular ACHS SC 09/04/25 07:00 09/22/25 16:32 2 UNITS Dextrose 50 ml UD PRN IV 09/04/25 05:15 Pantoprazole Sodium 40 mg DAILY IV 09/06/25 10:00 09/23/25 09:08 40 MG Artificial Tears 1 drop Q4HP PRN EACHEYE 09/08/25 18:00 09/15/25 02:47 1 DROP Epoetin Nahun-epbx 10,000 unit MWF@2100 SC 09/09/25 21:00 09/21/25 21:50 10,000 UNIT Multi-Ingredient Ointment 1 applic DAILY TOP 09/10/25 10:00 09/23/25 09:03 1 APPLIC Norepinephrine Bitartrate 250 ml @ 3.75 mls/hr Q24H IV 09/15/25 08:45 09/23/25 09:03 15 MLS/HR Zirconium Oxide 10 gm BID PO 09/19/25 22:00 09/26/25 21:59 09/20/25 10:00 10 GM Bumetanide 1 mg BID IV 09/19/25 22:00 09/23/25 09:03 1 MG Enteral Nutritional Formula 1,000 ml 45ML/HR GT 09/21/25 19:30 Albumin Human 100 ml @ 100 mls/hr PRN PRN IV 09/22/25 05:45 09/22/25 05:48 100 MLS/HR Dextrose 1,000 ml @ 100 mls/hr Q10H IV 09/22/25 11:15 09/23/25 09:04 100 MLS/HR Examination General: Unresponsive, ventilator-dependent. Neuro: No spontaneous movement. No corneal reflexes. Pupils fixed. Spinal reflex movements present (post-anoxic). Respiratory: Mechanically ventilated; breath sounds diminished, coarse bilaterally. CV: Sinus rhythm on monitor; pulses faint but present; norepinephrine-dependent. GI: Abdomen soft, nondistended, tube feeds via OG. : Sams catheter draining clear yellow urine. Extremities: Warm, 1+ edema, no mottling. Skin: Sacral area dry. Diffuse rash regressing. laboratory and microbiology Laboratory Tests 09/23/25 05:30 09/23/25 02:49 Test 09/23/25 02:49 Range/Units Serum Glucose 119 H 74-106 mg/dL Microbiology Date/Time Source Procedure Growth Status 09/04/25 23:21 Urine - Sams Port Urine Culture - Final Complete 09/04/25 10:00 Nose MRSA Screen - Final Complete 09/04/25 04:22 Sputum Expectorated Sputum Gram Stain - Final Complete 09/04/25 04:22 Respiratory Culture - Final Staphylococcus aureus Complete 09/04/25 01:40 Blood Blood Culture - Final NO GROWTH AFTER 5 DAYS OF INCUBATION. Complete Problem List/Assessment/Plan Problem List/Assessment/Plan ASSESSMENT /PLAN SYSTEM HODGE Neurology #Catastrophic, irreversible, severe anoxic brain injury; extremely poor prognosis Metabolic encephalopathy (secondary to anoxic injury) * Imaging consistent with brain * Clinical exam does NOT meet full brain- criteria (minimal brainstem reflex activity) * Spinal reflexes present * Prognosis: terminal # History of anxiety # Questionable Seizure like activity -Neurology on board - Neurology stated poor prognosis * Continue neuro checks Q1H * Maintain normothermia * Avoid hypotension/hypoxia * Nuclear brain perfusion scan consistent with brain * EEG: Severe diffuse cerebral dysfunction consistent with severe hypoxic metabolic encephalopathy For now full code. * Family fully understands prognosis and has chosen comfort-focused terminal weaning next week when father arrives * Second neurologist exam does not meet brain criteria but poor prognosis, family updated * Maintain current ventilatory support Cardiology #Postcardiac arrest state (VF arrest - ROSC) #Mixed cardiogenic + septic shock on norepinephrine # heart failure with reduced ejection fraction likely post cardiac arrest # Dyslipidemia # Non ST-elevation myocardial infarction likely type 2 status post cardiac arrest, type 1 not ruled out -Head CT -Ekg -Echo : Conclusion MODERATELY DILATED RV AND IS HYPOKINETIC DYSKINESIS OF IVS RVSP IS 40 MM OF HG AND IS HIGH STUDY CONFIRM RV FAILURE GLOBAL LV HYPOKINESIS LV EF IS 40% AND IS REDUCED NORMAL VALVES NO EFFUSION Maintain SPP (Systolic Perfusion Pressure) > 90 mmHg at all times. * Titrate norepinephrine (LEVOPHED) drip to maintain SPP > 90 mmHg. * Monitor for multi-organ shock progression.* Avoid hypotension to preserve brain perfusion * Cardiology involved * Daily EKG * Trend troponins Given anoxic brain injury, the patient is not a candidate for invasive cardiac work-up as per cardiology continue conservative medical management. * Bradycardia episodes with repositioning move gently Respiratory #Acute hypoxic respiratory failure requiring mechanical ventilation * AC/VC: RR 14, TV 450, PEEP 5, FiO2 30% * VAP bundle * Daily CXR * Oral care Q4H * SBT contraindicated Infectious Disease #MSSA / aspiration pneumonia * STOPPED Unasyn today due to allergic rash * Doxycycline discontinued (course completed) * Continue to monitor rash progression * Monitor sputum, blood, urine cultures * COVID/Flu negative * WBC (mild improvement) Hematology Microcytic anemia # severe anemia requiring blood transfusion -2 unit of PRBC transfused Started on IV IRON # coagulopathy likely due to sepsis Monitor Thrombocytopenia (Plt 124), resolved * * Hgb stable at 7.5 , Discontinued Heparin, transfuse only if <7 * Platelets normal * DVT prophylaxis: Heparin held due to anemia * Use SCDs Renal * KIMI stage 3 on solitary kidney Hyperkalemia improving hypercalcemia hyperphosphatemia *Dialysis-dependent renal failure * Continue daily evaluation for kidney replacement therapy. * Avoid nephrotoxins * Daily BMP, Mg, Phos hyperkalemia Corrected # hypernatremia * D5W infusion initiated at 100 mL/hr * Recheck Na q6h # metabolic acidosis due to sepsis Monitor ABG # respiratory alkalosis Decrease respiratory rate to 12 # hypomagnesemia Monitor Urology # complicated urinary tract infection -on antibiotics # Punctate nonobstructing right renal calculi. Seen on ultrasound # Left nephrectomy. Seen on ultrasound GI Shock liver (AST/ALT markedly elevated) now improving * Continue Nepro tube feeds @ 35 mL/hr * No PEG placement per family wishes. * Check residuals Q4H * PPI for ulcer prophylaxis * Monitor stool output * No bowel movement start Senna + Miralax Endocrine * Insulin ACHS * Maintain BG [id number] Skin * Stage 1 sacral ulcer * Wound care following * Reposition Q2H * Beta-lactam hypersensitivity improving Ensure no heparin products (including flushes) STOP beta-lactams (done) Start doxycycline (done) Warm compresses to affected areas Reposition Q2H to reduce pressure contribution NO signs of cellulitis (no warmth) Topical emollients (Aquaphor) to reduce skin breakdown Monitor platelets daily OPHTHALMOLOGY * Conjunctival injection, swollen eyelids * Start Lacri-lube eye drops Q6H LINES / TUBES * ETT (09/04) * OG tube * Left femoral central line (09/04) * Sams catheter Right IJ tunneled dialysis catheter (09/09) * Daily line necessity review PROPHYLAXIS * DVT: SCDs only * GI: Pantoprazole * Ulcer: Q2H turns * VAP: oral care, CHG, HOB elevation SOCIAL WORK / FAMILY SUPPORT Family meeting held * Family confirms desire for terminal weaning, but exact date pending. * They decline PEG and tracheostomy; causing treatment limitations. * Father en route from [place] waiting for him to go ahead with terminal weaning. * Social work and rn hospital involved * Request continuation of FULL CODE & full aggressive care for now * Social work available for support CODE STATUS FULL CODE Family updated today; despite detailed prognosis counseling, they request full aggressive measures and full code total time spent >20 mins * Family has endorsed terminal weaning in principle, but date pending. * No PEG tube, no tracheostomy per family wishes. CRITICAL CARE TIME 83 minutes of critical care time spent today, excluding procedure time. . DISCUSSION WITH ATTENDING Case reviewed in detail with attending physician Dr Salcido. Management plan jointly agreed upon. including the clinical presentation, diagnostic workup, and comprehensive management plan. The patient's family was present for the discussion and demonstrated understanding of his condition and the proposed plan. Plan discussed with: Spouse (RN), Daughter My Orders My Orders Orders - FRANCIS PRESSLEY RESIDENT Procedure Category Date Status Time Abg W/ Co-Ox RT 09/23/25 Logged 06:00 Dietary Evaluation Review Comments: 1. nepro 35/hr providing 68g pro, 1487kcal, 611ml free water, meeting 107% energy needs, 80% protein needs 2. Increase amount of Protein support for wound healing when/if pt's kidney function impvoes. F/U and reassess when pt is off vent and PRN. Expected Outcomes/Goals: Adequate nutrition support for being on mechanical ventilation CC Plasma Assessment Blood Product Administration S: 06:05 Visit Coding STANDARD RES Billing Provider: FRANNY SALCIDO MD Date of Service if different f: Sep 23, 2025 FRANCIS PRESSLEY RESIDENT Sep 23, 2025 11:14
--- NOTE | 2025-09-23 13:25 | DVH ---
CHEST RADIOGRAPH Indication: New NG tube placement Technique: Single frontal view of the chest was obtained COMPARISON: XY CHEST XRAY 1 VIEW on DOS: 09/23/25, XY CHEST XRAY 1 VIEW on DOS: 09/22/25, XY CHEST XRAY 1 VIEW on DOS: 09/21/25, XY CHEST XRAY 1 VIEW on DOS: 09/20/25, XY CHEST XRAY 1 VIEW on DOS: 09/19/25 FINDINGS: Lines and Tubes: Endotracheal tube tip projects approximately 3.7 cm above the level of the osmel. Right permCath terminates within the distal superior vena cava. Enteric catheter courses below the level of the diaphragm and terminates within the stomach. Lungs: Grossly stable appearing moderate patchy predominantly bilateral perihilar and basilar pulmonary infiltrate with consolidative features. Pleura: No effusion. No pneumothorax. Cardiomediastinal contours: Unremarkable Bones: Unremarkable IMPRESSION: 1. Enteric catheter terminates within the stomach. Remaining lines and tubes as above. 2. Grossly stable appearing moderate patchy predominantly bilateral perihilar and basilar pulmonary infiltrate with consolidative features. hs:y
--- NOTE | 2025-09-23 14:05 | DVHPN2 ---
Progress Note Date Seen: Sep 23, 2025 Resident Creating Document: CHIDI BOWERS RESIDENT Has the PT tested + for MRSA If YES, has PT been informed?: No Medical Necessity Reason Pt with a Central, PICC or Fol: Yes The following are medically ne: Central Line, Sams Catheter Subjective Review of Systems vPatient seen and examined at the bedside. Unable to obtain ROS due to patient's clinical status currently intubated and on mechanical ventilation. Review of Systems: RESPIRATORY:Abnormal Other Systems: Patient seen and examined by myself today in round with the resident, I agree with his asessment and plan Objective vital signs Vital Sign Date Time Temp Pulse Resp B/P (MAP) Pulse Ox O2 Delivery O2 Flow Rate FiO2 09/23/25 13:37 88 15 101/64 (76) 99 30 09/23/25 12:00 Mechanical Ventilator+ 09/23/25 08:00 99.5 99.5 Total Intake and Output 09/22/25 09/22/25 09/23/25 15:00 23:00 07:00 Intake Total 300 ml 1540 ml 928 ml Output Total 525 ml 950 ml Balance 300 ml 1015 ml -22 ml medications Current Medications Medications Dose Ordered Sig/Ese Route Start Time Stop Time Status Last Admin Dose Admin Diagnostic Test (Pha) 1 strip ACHS 09/04/25 07:00 09/23/25 11:30 1 STRIP Insulin Human Regular ACHS SC 09/04/25 07:00 09/22/25 16:32 2 UNITS Dextrose 50 ml UD PRN IV 09/04/25 05:15 Pantoprazole Sodium 40 mg DAILY IV 09/06/25 10:00 09/23/25 09:08 40 MG Artificial Tears 1 drop Q4HP PRN EACHEYE 09/08/25 18:00 09/15/25 02:47 1 DROP Multi-Ingredient Ointment 1 applic DAILY TOP 09/10/25 10:00 09/23/25 09:03 1 APPLIC Norepinephrine Bitartrate 250 ml @ 3.75 mls/hr Q24H IV 09/15/25 08:45 09/23/25 09:03 15 MLS/HR Zirconium Oxide 10 gm BID PO 09/19/25 22:00 09/26/25 21:59 09/20/25 10:00 10 GM Bumetanide 1 mg BID IV 09/19/25 22:00 09/23/25 09:03 1 MG Enteral Nutritional Formula 1,000 ml 45ML/HR GT 09/21/25 19:30 Albumin Human 100 ml @ 100 mls/hr PRN PRN IV 09/22/25 05:45 09/22/25 05:48 100 MLS/HR Dextrose 1,000 ml @ 100 mls/hr Q10H IV 09/22/25 11:15 09/23/25 09:04 100 MLS/HR Examination General Appearance: mild distress, Other (Intubated, on vent) HEENT: Atraumatic, PERRLA, Other Lungs: Slightly diminished sounds Cardiovascular: Normal S1, Normal S2 Abdomen: Normal bowel sounds, Soft, No tenderness, No hepatosplenomegaly, No masses Genitourinary: Sams catheter Musculoskeletal: Trace edema Neuro: Unable to assess Skin: Dry, Intact laboratory and microbiology Laboratory Tests 09/23/25 11:51 09/23/25 02:49 Test 09/23/25 02:49 Range/Units Serum Glucose 119 H 74-106 mg/dL Microbiology Date/Time Source Procedure Growth Status 09/04/25 23:21 Urine - Sams Port Urine Culture - Final Complete 09/04/25 10:00 Nose MRSA Screen - Final Complete 09/04/25 04:22 Sputum Expectorated Sputum Gram Stain - Final Complete 09/04/25 04:22 Respiratory Culture - Final Staphylococcus aureus Complete 09/04/25 01:40 Blood Blood Culture - Final NO GROWTH AFTER 5 DAYS OF INCUBATION. Complete Labs and/or images reviewed: Labs reviewed by me, Image(s) reviewed by me Problem List/Assessment/Plan Problem List/Assessment/Plan KIMI, from [facility] due to cardiac arrest requiring hemodialysis Hypernatremia Acute respiratory failure, intubated on ventilator Status post cardiac arrest Anoxic encephalopathy Cardiogenic/septic shock NSTEMI Plan/recommendation: increased urine output HD tomorrow D5W often as 100 mL/hour lokelma TID due to hyperkalemia Epogen 23678 subQ 3 times weekly Strict I&Os, loop diuretic resumed nepro tube feeding, phos , pth level Monitor urinary output ,improved Vasopressor per primary team Avoid nephrotoxic medication Ct head--anoxic encephalopathy EEG/perfusion scan showed anoxic brain injury, defer to neurology and primary for [facility] care and management Poor prognosis Case discussed with the Dr. Madkour Plan discussed with: Other (rn) Dietary Evaluation Review Comments: 1. nepro 35/hr providing 68g pro, 1487kcal, 611ml free water, meeting 107% energy needs, 80% protein needs 2. Increase amount of Protein support for wound healing when/if pt's kidney function impvoes. F/U and reassess when pt is off vent and PRN. Expected Outcomes/Goals: Adequate nutrition support for being on mechanical ventilation CC Plasma Assessment Blood Product Administration S: 06:05 CHIDI BOWERS RESIDENT Sep 23, 2025 14:05 CARISSA BARRERA MD Sep 23, 2025 17:07
[2025-09-24] VITALS (108 sets, daily range): BP systolic 53–165; BP diastolic 29–94; PULSE 57–102; RESP 13–27; TEMP 95.9–98.5; O2SAT 86–100
--- NOTE | 2025-09-24 01:15 | DVHPN2 ---
Progress Note - Dictate Date Seen: Sep 23, 2025 Has the PT tested + for MRSA If YES, has PT been informed?: No Medical Necessity Reason Pt with a Central, PICC or Fol: Yes The following are medically ne: Central Line, Sams Catheter Subjective Patient was seen and evaluated in follow up in the ICU. Patient is intubated on ventilator. FiO2 30%. Patient receiving tube feedings for nutritional support. HGB 8.9, HCT 28.1, BUN 45, PAYMENT SPECIALIST 3.13, AST 143, ALT 48. Chest x-ray shows grossly stable appearing moderate patchy predominantly bilateral perihilar and basilar pulmonary infiltrate with consolidative features. vital signs Vital Sign Date Time Temp Pulse Resp B/P (MAP) Pulse Ox O2 Delivery O2 Flow Rate FiO2 09/23/25 13:37 88 15 101/64 (76) 99 30 09/23/25 12:00 Mechanical Ventilator+ 09/23/25 08:00 99.5 99.5 Total Intake and Output 09/22/25 09/22/25 09/23/25 15:00 23:00 07:00 Intake Total 300 ml 1540 ml 928 ml Output Total 525 ml 950 ml Balance 300 ml 1015 ml -22 ml medications Current Medications Medications Dose Ordered Sig/Ese Route Start Time Stop Time Status Last Admin Dose Admin Diagnostic Test (Pha) 1 strip ACHS 09/04/25 07:00 09/23/25 11:30 1 STRIP Insulin Human Regular ACHS SC 09/04/25 07:00 09/22/25 16:32 2 UNITS Dextrose 50 ml UD PRN IV 09/04/25 05:15 Pantoprazole Sodium 40 mg DAILY IV 09/06/25 10:00 09/23/25 09:08 40 MG Artificial Tears 1 drop Q4HP PRN EACHEYE 09/08/25 18:00 09/15/25 02:47 1 DROP Multi-Ingredient Ointment 1 applic DAILY TOP 09/10/25 10:00 09/23/25 09:03 1 APPLIC Norepinephrine Bitartrate 250 ml @ 3.75 mls/hr Q24H IV 09/15/25 08:45 09/23/25 09:03 15 MLS/HR Zirconium Oxide 10 gm BID PO 09/19/25 22:00 09/26/25 21:59 09/20/25 10:00 10 GM Bumetanide 1 mg BID IV 09/19/25 22:00 09/23/25 09:03 1 MG Enteral Nutritional Formula 1,000 ml 45ML/HR GT 09/21/25 19:30 Albumin Human 100 ml @ 100 mls/hr PRN PRN IV 09/22/25 05:45 09/22/25 05:48 100 MLS/HR Dextrose 1,000 ml @ 100 mls/hr Q10H IV 09/22/25 11:15 09/23/25 09:04 100 MLS/HR objective GENERAL: Ill appearing, intubated on ventilator. EYES: PERRL, EOMI. Anicteric. HENT: Moist mucous membranes. LUNGS: Decreased breath sounds. CARDIOVASCULAR: Regular rate and rhythm. ABDOMEN: Soft, nontender and nondistended. EXTREMITIES: No edema. SKIN: Warm, dry. laboratory and microbiology Laboratory Tests 09/23/25 11:51 09/23/25 02:49 Test 09/23/25 02:49 Range/Units Serum Glucose 119 H 74-106 mg/dL Problem List Cardiopulmonary arrest with ROSC. Ventricular fibrillation arrest with defibrillation at 100J. Non ST-elevation myocardial infarction. Acute anemia status post blood transfusion (-FOBT). Acute hypoxic respiratory failure. Likely KIMI on CKD. Left nephrectomy. Shocked Liver. Dyslipidemia, newly diagnosed. Cerebral and cerebellar edema, anoxic brain injury. ? Suspected PE with RV failure and PAH. Assessment/Plan Continued all current supportive medical care. Diuretics with Bumex. Vasopressors for hemodynamic support. GI prophylactics. Additional plan as per the hospital course. Critical care time of 45 minutes provided to include time spent evaluation of patient at bedside, when appropriate patient/family education for diagnosis, treatment plan, review of pertinent medical information and discussion of care with specialty providers and PCP. Mechanical ventilator parameters, treatment and adjustments have personally been reviewed by me and treatment plan by ticket counter has also been reviewed. Dietary Evaluation Review Comments: 1. nepro 35/hr providing 68g pro, 1487kcal, 611ml free water, meeting 107% energy needs, 80% protein needs 2. Increase amount of Protein support for wound healing when/if pt's kidney function impvoes. F/U and reassess when pt is off vent and PRN. Expected Outcomes/Goals: Adequate nutrition support for being on mechanical ventilation Plan discussed with: Other CC Plasma Assessment Blood Product Administration S: 06:05 RISHI SOARES MD Sep 23, 2025 14:13
[2025-09-24 04:23] LABS: Hematocrit 28.3 % (36.0-46.0); Hemoglobin 9.0 g/dL (12.2-16.2); Mean Corpuscular Hemoglobin 23.2 pg (28.0-32.0); Mean Corpuscular Volume 72.8 fL (80.0-100.0); Nucleated Red Blood Cells % 0.0 %
[2025-09-24 04:35] LABS: Albumin 3.3 g/dL (3.2-4.8); Anion Gap 15 (5-15); BUN/Creatinine Ratio 12.7 (10.0-20.0); Carbon Dioxide 26 mmol/L (20-31); Chloride 98 mmol/L (98-107); Potassium 4.1 mmol/L (3.5-5.1); Sodium 139 mmol/L (136-145); Total Protein 7.4 g/dL (5.7-8.2)
[2025-09-24 04:38] LABS: Alanine Aminotransferase 60 U/L (7-40); Alkaline Phosphatase 421 U/L (46-116); Bilirubin, Total 0.3 mg/dL (0.2-1.0); Blood Urea Nitrogen 52 mg/dL (9-23); Calcium 12.5 mg/dL (8.7-10.4); Glucose 120 mg/dL (74-106)
--- NOTE | 2025-09-24 05:48 | DVH ---
CHEST RADIOGRAPH Indication: Evaluate for Pneumonia Technique: Single frontal view of the chest was obtained COMPARISON: XY CHEST PORTABLE on DOS: 09/23/25, XY CHEST XRAY 1 VIEW on DOS: 09/23/25, XY CHEST XRAY 1 VIEW on DOS: 09/22/25, XY CHEST XRAY 1 VIEW on DOS: 09/21/25, XY CHEST XRAY 1 VIEW on DOS: 09/20/25 FINDINGS: Lines and Tubes: Unchanged. Lungs: Grossly stable appearing patchy bilateral perihilar and bibasilar infiltrate. Small bilateral pleural effusions. No pneumothorax. Cardiomediastinal contours: Unremarkable Bones: Unremarkable IMPRESSION: 1. Stable appearing patchy bilateral perihilar and bibasilar infiltrates. 2. Small bilateral pleural effusions. 3. Lines and tubes unchanged.
[2025-09-24 07:13] LABS: Base Excess 2.0 mmol/L (-2.0-3.0)
--- NOTE | 2025-09-24 10:52 | DVHPN2 ---
Progress Note - Dictate Date Seen: Sep 24, 2025 Has the PT tested + for MRSA If YES, has PT been informed?: No Medical Necessity Reason Pt with a Central, PICC or Fol: Yes The following are medically ne: Central Line, Sams Catheter Subjective Ms. Murillo is a 40 years old female with a history of kidney stone, depression, anxiety, she was brought to the [facility] on 09/04/2025 with a chief complaint of cardio pulmonary arrest I have seen and examined the patient, talked to her nurse. No change in her clinical symptoms and physical examination Her pupils are fixed, no gag reflexes, Rt: 7mm, Lt: 8mm. She has spontaneous or pain/touch evoked decerebrate posturing, progressive bilateral eye edema Urinalysis, 09/04/2025: WBC: 37, urine leukocyte esterase: Negative UDS, 09/04/2025: Negative Plasma alcohol, 09/04/2025: <3 ABG, 09/10/2025: Metabolic acidosis WBC/HB/PLT/MCV, 09/04/2025: 8.8/6.4/260/79.8 PT/INR/ABG, 09/04/2025: 70.4/1.73/ Na, 09/04/2025: 151, 148, 140 K, 09/04/2025: 6.3, 4.6, 3.2 BUN/CR, 09/04/2025: 30/2.69 09/12/25: 60 4/5.45 GFR, 09/12/2025: Nine TBI/AST/ALT/AP, 09/04/2025: 0.11/2481/4030/74, 0.01/5737/2100/93, 09/12/25: 0.2/148/180/165 Glucose, 09/04/2025: 146, 294, 503 HGB A1c, 09/04/2025: 5 Lactic acid, 09/04/2025: 21.1, or 15.2 Troponin one high sensitivity, 09/04/2025: 2769, 5664, 7574 TG/HDL/LDL/HDL, 09/04/2025: 186/86/41/25 Extremity venous study, 09/04/2025: NO SONOGRAPHIC EVIDENCE FOR DEEP VENOUS THROMBOSIS IN THE BILATERAL LOWER EXTREMITY VEINS Cerebral flow, 09/10/2025: Findings likely representing brain however clinical correlation is needed. Chest x-ray, 09/12/2025: Probable small bilateral pleural effusions with mild bibasilar atelectatic changes. CT head, 09/04/25: No acute intracranial abnormality (I saw evidence suggestive of early diffuse brain edema) CT head 09/05/25: Findings are consistent with severe diffuse cerebral and cerebellar edema possibly representing anoxic brain injury. vital signs Vital Sign Date Time Temp Pulse Resp B/P (MAP) Pulse Ox O2 Delivery O2 Flow Rate FiO2 09/24/25 09:53 84 14 99/62 (74) 98 30 09/24/25 06:00 Mechanical Ventilator+ 09/24/25 04:01 97.7 97.7 Total Intake and Output 09/23/25 09/23/25 09/24/25 15:00 23:00 07:00 Intake Total 400 ml 550 ml 911 ml Output Total 1625 ml 1900 ml Balance 400 ml -1075 ml -989 ml medications Current Medications Medications Dose Ordered Sig/Ese Route Start Time Stop Time Status Last Admin Dose Admin Diagnostic Test (Pha) 1 strip ACHS 09/04/25 07:00 09/24/25 10:09 1 STRIP Insulin Human Regular ACHS SC 09/04/25 07:00 09/23/25 21:34 2 UNITS Dextrose 50 ml UD PRN IV 09/04/25 05:15 Pantoprazole Sodium 40 mg DAILY IV 09/06/25 10:00 09/24/25 10:07 40 MG Artificial Tears 1 drop Q4HP PRN EACHEYE 09/08/25 18:00 09/15/25 02:47 1 DROP Multi-Ingredient Ointment 1 applic DAILY TOP 09/10/25 10:00 09/24/25 10:10 1 APPLIC Norepinephrine Bitartrate 250 ml @ 3.75 mls/hr Q24H IV 09/15/25 08:45 09/24/25 00:59 15 MLS/HR Zirconium Oxide 10 gm BID PO 09/19/25 22:00 09/26/25 21:59 09/20/25 10:00 10 GM Bumetanide 1 mg BID IV 09/19/25 22:00 09/23/25 21:30 1 MG Enteral Nutritional Formula 1,000 ml 45ML/HR GT 09/21/25 19:30 Albumin Human 100 ml @ 100 mls/hr PRN PRN IV 09/22/25 05:45 09/22/25 05:48 100 MLS/HR Dextrose 1,000 ml @ 100 mls/hr Q10H IV 09/22/25 11:15 09/24/25 05:50 100 MLS/HR objective The patient is well-nourished and well-developed with no distress. The patient is intubated MENTAL STATUS: Nonresponsive stroke painful stimuli CRANIAL NERVES: Pupils are equal, round, and fixed. There are no corneal reflexes and no doll's eyes phenomenon. No signs of facial weakness. There are no gagging or coughing reflexes SENSATION: No responses to strong pain stimuli. MOTOR: Normal muscle bulk. No fasciculations. No spontaneous movement. Increased muscle tone in the left upper extremity. See subjective REFLEXES: Deep tendon reflexes are symmetrical. No pathological reflexes. CEREBELLAR/COORDINATION: Deferred GAIT/STATION: deferred. laboratory and microbiology Laboratory Tests 09/24/25 06:14 09/24/25 03:14 Test 09/24/25 03:14 Range/Units Serum Glucose 120 H 74-106 mg/dL Problem List Cardiopulmonary arrest Coma/Metabolic/hypoxic encephalopathy Metabolic acidosis Acute respiratory failure Elevated troponin/heart attack Severe anemia Shocked liver Hypernatremia Increased muscle tone in the left arm Decerebrate posturing Assessment/Plan Monitoring Supportive treatment ICU care Follow up labs Stabilize vitals/pressor drip Respiratory support/vent management Oxygen Antibiotics DVT prophylaxis GI prophylaxis More recommendation per clinical course Poor prognosis for meaningful/overall recovery Family to decide code status This medical document was created using an electronic medical record system with [employer] dictation system. Although this document has been carefully reviewed, there may still be some phonetic and typographical errors. These areas are purely typographical due to imperfections of the software programs, and do not reflect any compromise in the patient's medical care. Prognosis poor Dietary Evaluation Review Comments: 1. nepro 35/hr providing 68g pro, 1487kcal, 611ml free water, meeting 107% energy needs, 80% protein needs 2. Increase amount of Protein support for wound healing when/if pt's kidney function impvoes. F/U and reassess when pt is off vent and PRN. Expected Outcomes/Goals: Adequate nutrition support for being on mechanical ventilation Plan discussed with: Other CC Plasma Assessment Blood Product Administration S: 06:05 ALEXIS DEL ANGEL MD Sep 24, 2025 10:52
--- NOTE | 2025-09-24 11:39 | DVHPN2 ---
Progress Note Date Seen: Sep 24, 2025 Resident Creating Document: CHIDI BOWERS RESIDENT Has the PT tested + for MRSA If YES, has PT been informed?: No Medical Necessity Reason Pt with a Central, PICC or Fol: Yes The following are medically ne: Central Line, Sams Catheter Subjective Review of Systems Patient seen and examined at the bedside. Unable to obtain ROS due to patient's clinical status currently intubated and on mechanical ventilation. Review of Systems: RESPIRATORY:Abnormal Other Systems: Patient seen and examined by myself in rounds with the medicine resident, I agree with the assessment and plan Patient examined hemodialysis, blood pressure stable Patient remained intubated on ventilator Objective vital signs Vital Sign Date Time Temp Pulse Resp B/P (MAP) Pulse Ox O2 Delivery O2 Flow Rate FiO2 09/24/25 10:30 83 14 106/65 (79) 97 09/24/25 10:00 Mechanical Ventilator+ 30 30 09/24/25 08:00 97.7 97.7 Total Intake and Output 09/23/25 09/23/25 09/24/25 15:00 23:00 07:00 Intake Total 400 ml 550 ml 911 ml Output Total 1625 ml 1900 ml Balance 400 ml -1075 ml -989 ml medications Current Medications Medications Dose Ordered Sig/Ese Route Start Time Stop Time Status Last Admin Dose Admin Diagnostic Test (Pha) 1 strip ACHS 09/04/25 07:00 09/24/25 10:09 1 STRIP Insulin Human Regular ACHS SC 09/04/25 07:00 09/23/25 21:34 2 UNITS Dextrose 50 ml UD PRN IV 09/04/25 05:15 Pantoprazole Sodium 40 mg DAILY IV 09/06/25 10:00 09/24/25 10:07 40 MG Artificial Tears 1 drop Q4HP PRN EACHEYE 09/08/25 18:00 09/15/25 02:47 1 DROP Multi-Ingredient Ointment 1 applic DAILY TOP 09/10/25 10:00 09/24/25 10:10 1 APPLIC Norepinephrine Bitartrate 250 ml @ 3.75 mls/hr Q24H IV 09/15/25 08:45 09/24/25 00:59 15 MLS/HR Zirconium Oxide 10 gm BID PO 09/19/25 22:00 09/26/25 21:59 09/20/25 10:00 10 GM Bumetanide 1 mg BID IV 09/19/25 22:00 09/23/25 21:30 1 MG Enteral Nutritional Formula 1,000 ml 45ML/HR GT 09/21/25 19:30 Albumin Human 100 ml @ 100 mls/hr PRN PRN IV 09/22/25 05:45 09/22/25 05:48 100 MLS/HR Dextrose 1,000 ml @ 100 mls/hr Q10H IV 09/22/25 11:15 09/24/25 05:50 100 MLS/HR Examination General Appearance: mild distress, Other (Intubated, on vent) HEENT: Atraumatic, PERRLA, Other Lungs: Slightly diminished sounds Cardiovascular: Normal S1, Normal S2 Abdomen: Normal bowel sounds, Soft, No tenderness, No hepatosplenomegaly, No masses Genitourinary: Sams catheter Musculoskeletal: Trace edema Neuro: Unable to assess Skin: Dry, Intact laboratory and microbiology Laboratory Tests 09/24/25 06:14 09/24/25 03:14 Test 09/24/25 03:14 Range/Units Serum Glucose 120 H 74-106 mg/dL Microbiology Date/Time Source Procedure Growth Status 09/04/25 23:21 Urine - Sams Port Urine Culture - Final Complete 09/04/25 10:00 Nose MRSA Screen - Final Complete 09/04/25 04:22 Sputum Expectorated Sputum Gram Stain - Final Complete 09/04/25 04:22 Respiratory Culture - Final Staphylococcus aureus Complete 09/04/25 01:40 Blood Blood Culture - Final NO GROWTH AFTER 5 DAYS OF INCUBATION. Complete Labs and/or images reviewed: Labs reviewed by me, Image(s) reviewed by me Problem List/Assessment/Plan Problem List/Assessment/Plan KIMI, from [facility] due to cardiac arrest requiring hemodialysis Hypernatremia resolved Acute respiratory failure, intubated on ventilator Status post cardiac arrest Anoxic encephalopathy Cardiogenic/septic shock NSTEMI Plan/recommendation: Continue with UF 1-2 L as tolerated Hyperkalemia resolved Epogen 28321 subQ 3 times weekly Strict I&Os, loop diuretic resumed nepro tube feeding, phos , pth level Monitor urinary output ,improved Vasopressor per primary team Avoid nephrotoxic medication Ct head--anoxic encephalopathy EEG/perfusion scan showed anoxic brain injury, defer to neurology and primary for halfway care and management Poor prognosis Case discussed with the Dr. Barrera Plan discussed with: Other (rn) Dietary Evaluation Review Comments: 1. nepro 35/hr providing 68g pro, 1487kcal, 611ml free water, meeting 107% energy needs, 80% protein needs 2. Increase amount of Protein support for wound healing when/if pt's kidney function impvoes. F/U and reassess when pt is off vent and PRN. Expected Outcomes/Goals: Adequate nutrition support for being on mechanical ventilation CC Plasma Assessment Blood Product Administration S: 06:05 CHIDI BOWERS RESIDENT Sep 24, 2025 11:39 CARISSA BARRERA MD Sep 24, 2025 13:18
--- NOTE | 2025-09-24 13:55 | DVHPNRES ---
Progress Note Date Seen: Sep 24, 2025 Resident Creating Document: FRANCIS PRESSLEY RESIDENT Has the PT tested + for MRSA If YES, has PT been informed?: No Medical Necessity Reason Pt with a Central, PICC or Fol: Yes The following are medically ne: Central Line, Sams Catheter Subjective Review of Systems Review of Systems The patient is a 40-year-old female with past medical history of anxiety, UTIs, and kidney stones who presented to [facility] ED for evaluation of cardiac arrest. As reported by EMS/family, patient had cardiac arrest, was asystole 1238 a.m., CPR initiated by family. Patient was initially anxious but was not having any complaints like chest pain or shortness of breath. EMS were on the scene within 5 minutes, CPR continued, patient was given IV fluid, epinephrine x2, became VFib so patient was shocked at 100 joules, Narcan given, became asystole again upon arrival at ER at 0108 hours, blood sugar upon arrival was 43, ROSC obtained at 0112 a.m. Family also reports that patient was depressed for the past 5 years, she has been staying in bed with decreased oral intake, had a fall injury in April resulting in arm and hip fracture. They denied any other significant past medical history. Patient was seen and evaluated in the ED, laboratory data shows WBC 8.8, hemoglobin 6.4, hematocrit 25.0, platelets 260, sodium 151, potassium 6.3, BUN 29, creatinine 2.52, GFR 24, glucose 146, anion gap 28.001, calcium 7.9, lactic acid 21.1 trending down to 15.2, magnesium 4.1, AST 2482, ALT 1430, troponin 2769, BNP 8.48, lipase 31, protein 4.8, albumin 2.7, blood pressure 151/22 trending up to 107/30, heart rate 106, temperature 94.2 F, O2 saturation 97% on ventilator. Head CT showed no acute intracranial abnormality. Patient was started on IV antibiotic regimen vancomycin, please see medication orders section in the computer. On my assessment, patient remains fully intubated, no diaphoresis, no diarrhea, vomiting, no fever. Patient was admitted for further evaluation and medical management. past surgical history; family denies family history: noncontributory past social history: patient lives with the family, denies any smoking, alcohol, drug use 09/06/25: patient seen in ICU. Patient is intubated, on Levophed o, off sedation. Head CT showed diffuse cerebral and cerebellar edema due to anoxic brain injury. neurology following, neurology stated poor prognosis. Kidney functions worsening. Patient's family states before admission patient has seizure-like activity, loss of consciousness which was on and off during the whole day. 09/07/25 40-year-old female in the ICU following cardiopulmonary arrest on 09/04/25, now with severe anoxic brain injury. * Intubated, mechanically ventilated * Off all sedation * No spontaneous movements * No response to pain * No brainstem reflexes: absent corneal, cough, gag, oculocephalic reflexes * Pupils 8 mm, fixed, nonreactive * Family updated todaypoor prognosis discussed, but family chooses FULL CODE and wants everything done Overnight: * Urine output 250 mL total/ 0.15ML/KG/HR * Sams in place, urine ncag-dl-mcyya annia * Tube feeds restarted, residuals 15 mL, tolerated * Small bowel movement today * Yamileth-care and sacral wound care performed EEG completed at bedside today for assessment of anoxic injury. Hemodynamics: * On norepinephrine drip for shock Respiratory: * Lungs clear except mild right basal infiltrates Consults: Neurology and Nephrology actively following. 09/08/25 The patient remains critically ill, intubated, mechanically ventilated, and off all sedation since 09/05. Overnight and through today, there continues to be no neurologic improvement. * Mental status unchanged and remains unresponsive/comatose * EEG yesterday inconclusive. Neurology now ordering brain perfusion scan today for brain evaluation * On norepinephrine drip, titrated 8 - 4 mcg/min * CXR today: no major change, persistent bilateral mixed pulmonary opacities and probable small pleural effusions * Oliguria continues * Urine output overnight: 100 mL * Total UO last 24h: 200 mL * Nephrology discontinued Lasix 80 mg BID * Lasix drip started * IR consulted for tunneled dialysis catheter placed today * Plan for hemodialysis/[facility] likely tomorrow Patient remains in critical multiorgan dysfunction with severe irreversible anoxic brain injury, worsening renal failure requiring [facility] preparation, hemodynamic instability requiring vasopressors, and persistent respiratory failure on the ventilator. No neurologic recovery. Full code per family request. 09/09/25 The patient remains critically ill, intubated, mechanically ventilated, and off all sedation since 09/05. Overnight and through today, there continues to be no neurologic improvement. * Mental status unchanged and remains unresponsive/comatose * EEG yesterday inconclusive . Neurology now ordering brain perfusion scan today for brain evaluation * Oliguria continues * IR consulted tunneled dialysis catheter today * Plan for hemodialysis/[facility] likely tomorrow, patient developed b/l upper extremity rash near the right elbow and left antecubital fossa. Patient remains in critical multiorgan dysfunction with severe irreversible anoxic brain injury, worsening renal failure requiring [facility] preparation, hemodynamic instability requiring vasopressors, and persistent respiratory failure on the ventilator. No neurologic recovery.Full code per family request. 09/10/25 he patient continues to remain critically ill, unresponsive, mechanically ventilated, off all sedation, with severe anoxic brain injury and no signs of neurologic recovery. Family continues to request FULL CODE and continuation of all aggressive medical care. * Urine output: 0.16 mL/kg/hr (severely oliguric) * Yesterday: Hemodialysis with 700 mL ultrafiltration * Today: Plan for 11.5 L ultrafiltration * Tunneled right IJ permacath placed 09/09 * Lasix drip discontinued * Creatinine 5.9 (improving from 7.58) * Iron studies: * Iron 11 (low),TIBC 204 (low),Saturation 5.4% (severely low),Ferritin 132 * EEG: Severe diffuse cerebral dysfunction consistent with severe hypoxic metabolic encephalopathy * Poor prognosis confirmed by neurology * Brain perfusion nuclear scan scheduled today/tomorrow for brain evaluation * Diffuse purpuric rash spreading over upper extremities and lower extremities * Ecchymosis + petechiae + non-blanching lesions * Rash progression after Unasyn possible beta-lactam hypersensitivity * Unasyn discontinued today * Doxycycline started 09/11/25 The patient was examined at bedside this morning. She remains critically ill, mechanically ventilated, unresponsive, and off all sedation. Today's major update is the nuclear brain perfusion scan showing complete absence of intracranial perfusion with hot-nose sign, radiologically consistent with BRAIN , pending final neurologic confirmation. Family was updated about the extremely poor prognosis; however, they insist on FULL CODE and full aggressive care. * When repositioned, HR drops into 30s returned to baseline after stabilization * SpO2: 98% on FiO2 30% * No fever * Urine output: 0.05 mL/kg/hr (severe oliguria) * HD yesterday removed 1.5 L UF * HD planned again tomorrow 09/12/25 The patient was evaluated at bedside today. She remains intubated, mechanically ventilated, and entirely unresponsive with no sedation on board. Neurology officially confirmed BRAIN today based on: * Absent brainstem reflexes * No spontaneous respiration * Nuclear medicine brain perfusion scan showing complete absence of intracranial perfusion * Clinical brain examination performed and documented This was explained thoroughly to the family. Despite clear communication, the family continues to request FULL CODE status and all aggressive measures, including long-term life support and LTAC placement. A protective services social worker/Case Management consult has been placed for LTAC disposition per family request. 09/13/2025 The patient was evaluated today in the ICU. She remains intubated, mechanically ventilated, on Levophed, and unresponsive with no sedation. She is afebrile, normocardic, and with MAP maintained on pressors. Labs today showed drop in Hb to 6.9, for which 1 unit of PRBC was transfused. Creatinine and BUN continue to increase, for which she was dialyzed today. Stool sample were also to evaluate any possible bleeding. Brain has been declared by neurology, family wishes for her to remain FULL CODE at this time. Per Machine Rebuilder, the patient does not qualify for LTAC placement at this time. We will continue to monitor. 09/14/25 The patient was evaluated at bedside today. She remains intubated and mechanically ventilated, without sedation, unresponsive, and with previously confirmed brain (absent brain perfusion, absent brainstem reflexes, nuclear perfusion scan positive for brain ). She continues to exhibit no neurologic function. Family met at bedside today. The irreversible prognosis and confirmed brain status were reviewed again. Family is currently discussing goals of care but for now insists the patient remain FULL CODE with continued aggressive care, including ongoing mechanical ventilation and dialysis as needed. Overnight Interval Events Hemoglobin dropped to 6.6 1 unit PRBC transfused post-transfusion Hgb 8.7 Dialysis removed 2 L Rash continues to improve No major ventilatory changes Hemodynamics fluctuating but stable with vasopressors 09/15/25 The patient was evaluated at bedside today. She remains intubated, mechanically ventilated, unresponsive without sedation. Neurologically, she continues to exhibit no cerebral or brainstem activity, consistent with previously documented brain on nuclear medicine perfusion study. Important new finding today: Despite clinical brain , the patient demonstrates spinal reflex activity, including: * Muscle twitching in upper extremities * Brief fast fasciculatory movements upon touch * Reflexive limb motion during turning and repositioning These findings are consistent with spinal reflex arcs, not cortical activity, and do not contradict brain physiology. Family has not yet decided regarding withdrawal of care and continues to insist on full aggressive measures. A second neurologist is scheduled for repeat confirmatory brain- exam today. Hemodialysis ongoing, with UF goal 1 L. Rash that developed after Unasyn is improving.Thrombocytopenia worsened (platelets 23,000). Hemoglobin dropped again. 09/16/25 The patient was evaluated at bedside today. She remains intubated, mechanically ventilated, and completely unresponsive without sedation. Her neurologic status continues to show no meaningful clinical neurologic function, however spinal reflex activity (muscle twitching on touch and during repositioning) persists, consistent with spinal cordmediated reflexes, not brain activity. A second neurologist completed a full clinical examination yesterday including cold caloric testing, corneal reflex, gag, cough reflex, pain response, and oculovestibular function: * Some isolated spinal reflex muscle activity was noted * Neurologist conclusion: * Does NOT meet full clinical criteria for brain because minimal brainstem reflex activity was detected * However, overall exam consistent with irreversible catastrophic anoxic brain injury * Radiologic findings remain consistent with brain pattern * Prognosis: extremely poor, essentially non-survivable anoxic injury Family was updated at bedside. They are considering terminal weaning, but request more time and have decided for now to continue FULL CODE, FULL AGGRESSIVE CARE. Patient continues on mechanical ventilation, dialysis-dependent KIMI,and poor neurologic prognosis. 09/17/25 The patient was evaluated at bedside today. She remains intubated, mechanically ventilated, profoundly unresponsive, and off all sedation. Her neurologic status is unchanged , consistent with irreversible catastrophic anoxic brain injury, although she does not meet full clinical criteria for formal brain (as per second neurologist evaluation). She continues to demonstrate intermittent spinal reflex activity (muscle twitching with touch or turning), consistent with spinal cordmediated reflexes. The family continues to deliberate regarding terminal weaning. They have not yet decided on the timing and request additional time. Until a final decision is made, they request FULL CODE and full aggressive support. No new acute events overnight. Hemodynamics remain supported with norepinephrine drip, titrated to maintain SPP > 90 mmHg per updated neuro-critical care plan. The patient is scheduled for hemodialysis today, with UF per nephrology recommendations. No other major changes in clinical condition. 09/18/25 The patient underwent hemodialysis yesterday, with 1.9 liters removed, and tolerated the procedure without acute complications. She remains on norepinephrine (LEVOPHED) infusion 58 mcg/min with blood pressures fluctuating between 116/65 and 90/57 mmHg. Repeat chest X-ray today shows increased interstitial prominence, raising concern for mild pulmonary congestion vs early interstitial edema. Most importantly, after multiple family meetings and extensive discussion with neurology and , the family has decided on terminal weaning tomorrow at 11:00 AM. Full supportive measures and full code status will be continued until the time of terminal weaning. 09/19/25: Patient seen and examined at bedside, had a long family discussion today, patient who is her POA was absent due to work, patient's family was determined and willing after her father coming from [place], 09/20/25 The patient underwent hemodialysis yesterday (09/19/25) with 1.0 L ultrafiltration removed, resulting in improvement in BUN (48 improved), creatinine (3.49 from 4.49), and potassium correction (5.4 - 4.2). She continues on norepinephrine (Levo) at 4 mcg/min for blood pressure support. No acute distress noted. Family meeting conducted today the patients family wishes to proceed with terminal weaning next week once the patients father arrives from [place]. Until then, they request continuation of full aggressive care with full code status. Doxycycline discontinued today as the full antibiotic course has been completed. No new overnight events. 09/21/25 Family states they are still waiting for the patients father to arrive from [place] before deciding on terminal weaning with comfort-focused care. Until then, they request continuation of full code and full aggressive management. Todays labs show worsening azotemia (BUN 64, Cr 4.41), hypernatremia (Na 147) likely from insensible losses and decreased free water intake, anemia with Hgb 8.4, thrombocytosis (platelets 566K), and ABG showing respiratory alkalosis with metabolic alkalosis compensation. Hemodialysis is scheduled for tomorrow per nephrology. Loop diuretics resumed. Tube feeding switched to Nepro formula. Free water boluses q4h through G-tube started. PTH level ordered. Respiratory secretions mild. Vent settings changed: respiratory rate decreased from 15 - 14. No acute overnight events. 09/22/25 Family has not yet finalized decision regarding terminal weaning. They request another nfruh-pi-memh meeting today. * On norepinephrine 46 mcg/min, titrated to maintain SPP > 90 and MAP > 65 Hypernatremia: * Sodium remained elevated at [address] at 153 * Tube-feed free water discontinued. * D5W infusion started at 100 mL/hr for controlled serum sodium reduction. * Strict I/O monitoring in place. 09/23/25 Patient was examined at bedside today. She remains unresponsive, intubated, mechanically ventilated, off all sedation, with no purposeful movements. Prior spinal reflex/twitching may still be present but no new neurologic activity is reported. Hemodynamics remain relatively stable on current ICU support. No reported fevers. Oxygenation and ventilation are stable on unchanged ventilator settings. Langston interval changes today: * Na improved to 142 (from 153 previously) * BUN 45, Cr 3.13 (improved from prior higher values) * CXR: Hazy bilateral opacities unchanged from yesterday; consistent with prior pulmonary congestion/infiltrates. Family / Goals of Care: * Family has confirmed they want terminal weaning but have not yet chosen the exact date. * They do NOT want PEG tube or tracheostomy and decline escalation to those procedures. * They want to continue full code and all current ICU-level medical management (including ventilator, pressors, dialysis, nutrition) except PEG and trach, until terminal weaning is performed. No new procedures today. 09/24/25 Family has not reached a final decision regarding terminal weaning and there is no update today regarding timing. They previously expressed intention to proceed with terminal extubation once decision is finalized, and continue FULL CODE status and ongoing life-support until then. Objective vital signs Vital Sign Date Time Temp Pulse Resp B/P (MAP) Pulse Ox O2 Delivery O2 Flow Rate FiO2 09/24/25 13:15 84 14 94/57 (69) 99 09/24/25 12:17 30 09/24/25 12:00 Mechanical Ventilator+ 09/24/25 12:00 97.9 97.9 Total Intake and Output 09/23/25 09/23/25 09/24/25 15:00 23:00 07:00 Intake Total 400 ml 550 ml 911 ml Output Total 1625 ml 1900 ml Balance 400 ml -1075 ml -989 ml medications Current Medications Medications Dose Ordered Sig/Ese Route Start Time Stop Time Status Last Admin Dose Admin Diagnostic Test (Pha) 1 strip ACHS 09/04/25 07:00 09/24/25 11:59 1 STRIP Insulin Human Regular ACHS SC 09/04/25 07:00 09/24/25 12:03 2 UNITS Dextrose 50 ml UD PRN IV 09/04/25 05:15 Pantoprazole Sodium 40 mg DAILY IV 09/06/25 10:00 09/24/25 10:07 40 MG Artificial Tears 1 drop Q4HP PRN EACHEYE 09/08/25 18:00 09/15/25 02:47 1 DROP Multi-Ingredient Ointment 1 applic DAILY TOP 09/10/25 10:00 09/24/25 10:10 1 APPLIC Norepinephrine Bitartrate 250 ml @ 3.75 mls/hr Q24H IV 09/15/25 08:45 09/24/25 00:59 15 MLS/HR Zirconium Oxide 10 gm BID PO 09/19/25 22:00 09/26/25 21:59 09/20/25 10:00 10 GM Bumetanide 1 mg BID IV 09/19/25 22:00 09/23/25 21:30 1 MG Enteral Nutritional Formula 1,000 ml 45ML/HR GT 09/21/25 19:30 Albumin Human 100 ml @ 100 mls/hr PRN PRN IV 09/22/25 05:45 09/22/25 05:48 100 MLS/HR Dextrose 1,000 ml @ 100 mls/hr Q10H IV 09/22/25 11:15 09/24/25 05:50 100 MLS/HR Examination General: Unresponsive, ventilator-dependent. Neuro: No spontaneous movement. No corneal reflexes. Pupils fixed. Spinal reflex movements present (post-anoxic). Respiratory: Mechanically ventilated; breath sounds diminished, coarse bilaterally. CV: Sinus rhythm on monitor; pulses faint but present; norepinephrine-dependent. GI: Abdomen soft, nondistended, tube feeds via OG. : Sams catheter draining clear yellow urine. Extremities: Warm, 1+ edema, no mottling. Skin: Sacral area dry. Diffuse rash regressing. laboratory and microbiology Laboratory Tests 09/24/25 12:56 09/24/25 03:14 Test 09/24/25 03:14 Range/Units Serum Glucose 120 H 74-106 mg/dL Microbiology Date/Time Source Procedure Growth Status 09/04/25 23:21 Urine - Sams Port Urine Culture - Final Complete 09/04/25 10:00 Nose MRSA Screen - Final Complete 09/04/25 04:22 Sputum Expectorated Sputum Gram Stain - Final Complete 09/04/25 04:22 Respiratory Culture - Final Staphylococcus aureus Complete 09/04/25 01:40 Blood Blood Culture - Final NO GROWTH AFTER 5 DAYS OF INCUBATION. Complete Problem List/Assessment/Plan Problem List/Assessment/Plan ASSESSMENT /PLAN SYSTEM HODGE Neurology #Catastrophic, irreversible, severe anoxic brain injury; extremely poor prognosis Metabolic encephalopathy (secondary to anoxic injury) * Imaging consistent with brain * Clinical exam does NOT meet full brain- criteria (minimal brainstem reflex activity) * Spinal reflexes present * Prognosis: terminal # History of anxiety # Questionable Seizure like activity -Neurology on board - Neurology stated poor prognosis * Continue neuro checks Q1H * Maintain normothermia * Avoid hypotension/hypoxia * Nuclear brain perfusion scan consistent with brain * EEG: Severe diffuse cerebral dysfunction consistent with severe hypoxic metabolic encephalopathy For now full code. * Family fully understands prognosis and has chosen comfort-focused terminal weaning next week when father arrives * Second neurologist exam does not meet brain criteria but poor prognosis, family updated * Maintain current ventilatory support Cardiology #Postcardiac arrest state (VF arrest - ROSC) #Mixed cardiogenic + septic shock on norepinephrine # heart failure with reduced ejection fraction likely post cardiac arrest # Dyslipidemia # Non ST-elevation myocardial infarction likely type 2 status post cardiac arrest, type 1 not ruled out -Head CT -Ekg -Echo : Conclusion MODERATELY DILATED RV AND IS HYPOKINETIC DYSKINESIS OF IVS RVSP IS 40 MM OF HG AND IS HIGH STUDY CONFIRM RV FAILURE GLOBAL LV HYPOKINESIS LV EF IS 40% AND IS REDUCED NORMAL VALVES NO EFFUSION Maintain SPP (Systolic Perfusion Pressure) > 90 mmHg at all times. * Titrate norepinephrine (LEVOPHED) drip to maintain SPP > 90 mmHg. * Monitor for multi-organ shock progression.* Avoid hypotension to preserve brain perfusion * Cardiology involved * Daily EKG * Trend troponins Given anoxic brain injury, the patient is not a candidate for invasive cardiac work-up as per cardiology continue conservative medical management. * Bradycardia episodes with repositioning move gently Respiratory #Acute hypoxic respiratory failure requiring mechanical ventilation * AC/VC: RR 14, TV 450, PEEP 5, FiO2 30% * VAP bundle * Daily CXR * Oral care Q4H * SBT contraindicated Infectious Disease #MSSA / aspiration pneumonia * STOPPED Unasyn today due to allergic rash * Doxycycline discontinued (course completed) * Continue to monitor rash progression * Monitor sputum, blood, urine cultures * COVID/Flu negative * WBC (mild improvement) Hematology Microcytic anemia # severe anemia requiring blood transfusion -2 unit of PRBC transfused Started on IV IRON # coagulopathy likely due to sepsis Monitor Thrombocytopenia (Plt 124), resolved * * Hgb stable at 7.5 , Discontinued Heparin, transfuse only if <7 * Platelets normal * DVT prophylaxis: Heparin held due to anemia * Use SCDs Renal * KIMI stage 3 on solitary kidney Hyperkalemia improving hypercalcemia hyperphosphatemia *Dialysis-dependent renal failure * Continue daily evaluation for kidney replacement therapy. * Avoid nephrotoxins * Daily BMP, Mg, Phos hyperkalemia Corrected # hypernatremia * D5W infusion initiated at 100 mL/hr * Recheck Na q6h # metabolic acidosis due to sepsis Monitor ABG # respiratory alkalosis Decrease respiratory rate to 12 # hypomagnesemia Monitor Urology # complicated urinary tract infection -on antibiotics # Punctate nonobstructing right renal calculi. Seen on ultrasound # Left nephrectomy. Seen on ultrasound GI Shock liver (AST/ALT markedly elevated) now improving * Continue Nepro tube feeds @ 35 mL/hr * No PEG placement per family wishes. * Check residuals Q4H * PPI for ulcer prophylaxis * Monitor stool output * No bowel movement start Senna + Miralax Endocrine * Insulin ACHS * Maintain BG [id number] Skin * Stage 1 sacral ulcer * Wound care following * Reposition Q2H * Beta-lactam hypersensitivity improving Ensure no heparin products (including flushes) STOP beta-lactams (done) Start doxycycline (done) Warm compresses to affected areas Reposition Q2H to reduce pressure contribution NO signs of cellulitis (no warmth) Topical emollients (Aquaphor) to reduce skin breakdown Monitor platelets daily OPHTHALMOLOGY * Conjunctival injection, swollen eyelids * Start Lacri-lube eye drops Q6H LINES / TUBES * ETT (09/04) * OG tube * Left femoral central line (09/04) * Sams catheter Right IJ tunneled dialysis catheter (09/09) * Daily line necessity review PROPHYLAXIS * DVT: SCDs only * GI: Pantoprazole * Ulcer: Q2H turns * VAP: oral care, CHG, HOB elevation SOCIAL WORK / FAMILY SUPPORT Family meeting held * Family confirms desire for terminal weaning, but exact date pending. * They decline PEG and tracheostomy; causing treatment limitations. * Father en route from [place] waiting for him to go ahead with terminal weaning. * Social work and customer experience consultant involved * Request continuation of FULL CODE & full aggressive care for now * Social work available for support CODE STATUS FULL CODE Family updated today; despite detailed prognosis counseling, they request full aggressive measures and full code total time spent >20 mins * Family has endorsed terminal weaning in principle, but date pending. * No PEG tube, no tracheostomy per family wishes. CRITICAL CARE TIME 83 minutes of critical care time spent today, excluding procedure time. . DISCUSSION WITH ATTENDING Case reviewed in detail with attending physician Dr Salcido. Management plan jointly agreed upon. including the clinical presentation, diagnostic workup, and comprehensive management plan. The patient's family was present for the discussion and demonstrated understanding of his condition and the proposed plan. Plan discussed with: Daughter, Other (RN) My Orders My Orders Orders - FRANCIS PRESSLEY RESIDENT Procedure Category Date Status Time Chest Xray 1 View XY 09/24/25 Resulted 04:00 Abg W/ Co-Ox RT 09/24/25 Logged 07:00 Abg W/ Co-Ox RT 09/24/25 Logged 12:30 Dietary Evaluation Review Comments: 1. nepro 35/hr providing 68g pro, 1487kcal, 611ml free water, meeting 107% energy needs, 80% protein needs 2. Increase amount of Protein support for wound healing when/if pt's kidney function impvoes. F/U and reassess when pt is off vent and PRN. Expected Outcomes/Goals: Adequate nutrition support for being on mechanical ventilation CC Plasma Assessment Blood Product Administration S: 06:05 Visit Coding STANDARD RES Billing Provider: MAXX COOPER MD Date of Service if different f: Sep 24, 2025 FRANCIS PRESSLEY RESIDENT Sep 24, 2025 13:55
[2025-09-24] MEDS: SODIUM CHL 0.9% 1000 ML BAG XX ONE (18:27)
--- NOTE | 2025-09-24 19:14 | DVHPN2 ---
Progress Note - Dictate Date Seen: Sep 24, 2025 Has the PT tested + for MRSA If YES, has PT been informed?: No Medical Necessity Reason Pt with a Central, PICC or Fol: Yes The following are medically ne: Central Line, Sams Catheter Subjective Patient was seen and evaluated in follow up in the ICU. Patient is intubated on ventilator. FiO2 30%. There is no significant change in the patient's clinical symptoms. HGB 9, HCT 28.3, BUN 52, [employer] 4.09, AST 195, ALT 60. Chest x-ray shows stable appearing patchy bilateral perihilar and bibasilar infiltrates and small bilateral pleural effusions. vital signs Vital Sign Date Time Temp Pulse Resp B/P (MAP) Pulse Ox O2 Delivery O2 Flow Rate FiO2 09/24/25 12:17 83 14 95/58 (70) 98 30 09/24/25 10:00 Mechanical Ventilator+ 09/24/25 08:00 97.7 97.7 Total Intake and Output 09/23/25 09/23/25 09/24/25 15:00 23:00 07:00 Intake Total 400 ml 550 ml 911 ml Output Total 1625 ml 1900 ml Balance 400 ml -1075 ml -989 ml medications Current Medications Medications Dose Ordered Sig/Ese Route Start Time Stop Time Status Last Admin Dose Admin Diagnostic Test (Pha) 1 strip ACHS 09/04/25 07:00 09/24/25 11:59 1 STRIP Insulin Human Regular ACHS SC 09/04/25 07:00 09/24/25 12:03 2 UNITS Dextrose 50 ml UD PRN IV 09/04/25 05:15 Pantoprazole Sodium 40 mg DAILY IV 09/06/25 10:00 09/24/25 10:07 40 MG Artificial Tears 1 drop Q4HP PRN EACHEYE 09/08/25 18:00 09/15/25 02:47 1 DROP Multi-Ingredient Ointment 1 applic DAILY TOP 09/10/25 10:00 09/24/25 10:10 1 APPLIC Norepinephrine Bitartrate 250 ml @ 3.75 mls/hr Q24H IV 09/15/25 08:45 09/24/25 00:59 15 MLS/HR Zirconium Oxide 10 gm BID PO 09/19/25 22:00 09/26/25 21:59 09/20/25 10:00 10 GM Bumetanide 1 mg BID IV 09/19/25 22:00 09/23/25 21:30 1 MG Enteral Nutritional Formula 1,000 ml 45ML/HR GT 09/21/25 19:30 Albumin Human 100 ml @ 100 mls/hr PRN PRN IV 09/22/25 05:45 09/22/25 05:48 100 MLS/HR Dextrose 1,000 ml @ 100 mls/hr Q10H IV 09/22/25 11:15 09/24/25 05:50 100 MLS/HR objective GENERAL: Ill appearing, intubated on ventilator. EYES: PERRL, EOMI. Anicteric. HENT: Moist mucous membranes. LUNGS: Decreased breath sounds. CARDIOVASCULAR: Regular rate and rhythm. ABDOMEN: Soft, nontender and nondistended. EXTREMITIES: No edema. SKIN: Warm, dry. laboratory and microbiology Laboratory Tests 09/24/25 06:14 09/24/25 03:14 Test 09/24/25 03:14 Range/Units Serum Glucose 120 H 74-106 mg/dL Problem List Cardiopulmonary arrest with ROSC. Ventricular fibrillation arrest with defibrillation at 100J. Non ST-elevation myocardial infarction. Acute anemia status post blood transfusion (-FOBT). Acute hypoxic respiratory failure. Likely KIMI on CKD. Left nephrectomy. Shocked Liver. Dyslipidemia, newly diagnosed. Cerebral and cerebellar edema, anoxic brain injury. ? Suspected PE with RV failure and PAH. Assessment/Plan Continued all current supportive medical care. Vasopressors for hemodynamic support. GI prophylactics. Additional plan as per the hospital course. Critical care time of 45 minutes provided to include time spent evaluation of patient at bedside, when appropriate patient/family education for diagnosis, treatment plan, review of pertinent medical information and discussion of care with specialty providers and PCP. Mechanical ventilator parameters, treatment and adjustments have personally been reviewed by me and treatment plan by broadcast supervisor has also been reviewed. Dietary Evaluation Review Comments: 1. nepro 35/hr providing 68g pro, 1487kcal, 611ml free water, meeting 107% energy needs, 80% protein needs 2. Increase amount of Protein support for wound healing when/if pt's kidney function impvoes. F/U and reassess when pt is off vent and PRN. Expected Outcomes/Goals: Adequate nutrition support for being on mechanical ventilation Plan discussed with: Other CC Plasma Assessment Blood Product Administration S: 06:05 RISHI SOARES MD Sep 24, 2025 13:01
--- NOTE | 2025-09-24 19:22 | DVHPN2 ---
Subjective DOS: 09/24/2025 Patient seen and examined at bedside. Intubated on mechanical ventilator. Overnight events reviewed. Changes from previous H/P or p: No Changes Eyes: No Pain, No Vision change, No Conjunctivae inflammation, No Eyelid inflammation, No Other, No Redness ENT: No Ear pain, No Ear discharge, No Nose pain, No Nose discharge, No Nose congestion, No Mouth pain, No Mouth swelling, No Throat pain, No Throat swelling, No Other Cardiovascular: No Chest Pain, No Palpitations, No Orthopnea, No Paroxysmal Noc. Dyspnea, No Edema, No Lt Headedness; Other (Cardiac arrest) Respiratory: No Cough, No Dry; Shortness of breath; No SOB with excertion, No Wheezing, No Hemoptysis, No Pleuritic Pain, No Sputum; Other (On ventilator) Gastrointestinal: No Nausea, No Vomiting, No Abdominal Pain, No Diarrhea, No Constipation, No Melena, No Hematochezia, No Other Genitourinary: No Dysuria, No Frequency, No Incontinence, No Hematuria, No Retention; Other (Sams catheter in place) Musculoskeletal: No other, No neck pain, No shoulder pain, No arm pain, No back pain, No hand pain, No leg pain, No foot pain Skin: No Rash, No Lesions, No Jaundice, No Bruising, No Other Objective Vitals Vital Signs Date Time Temp Pulse Resp B/P (MAP) Pulse Ox O2 Delivery O2 Flow Rate FiO2 09/24/25 18:30 75/39 09/24/25 18:13 30 09/24/25 18:13 14 97 Mechanical Ventilator+ 09/24/25 18:12 91 09/24/25 18:00 96.8 96.8 Intake/Output Intake and Output 09/24/25 07:00 Intake Total 1961 ml Output Total 3525 ml Balance -1564 ml Intake Oral 25 ml IV Total 1800 ml Tube Feeding 136 ml Output Urine Total 3525 ml Exam Gen.: Patient lying in bed in medical ICU. Intubated on mechanical ventilator. Head: Normocephalic, atraumatic. Eyes: PERRLA. Ears: Normal external anatomy. Throat: Endotracheal tube and orogastric tube in place. Neck: Supple, trachea midline. Chest: Transmitted breath sounds bilaterally. Decreased air entry bilaterally. No wheezing. Bibasilar crackles. Cardiovascular: Positive S1, positive S2. Regular rate and rhythm. Abdomen: Positive bowel sounds in all 4 quadrants. Soft, nontender, nondistended. : Sams in place. Normal external genitalia. Rectal: Deferred. Skin: Warm, dry. Intact. Extremities: 2+ radial pulses bilaterally. No lower extremity edema. Neuro: Off sedation, unresponsive. Medications Current Medications Medications Dose Ordered Sig/Ese Route Start Time Stop Time Status Last Admin Dose Admin Diagnostic Test (Pha) 1 strip ACHS 09/04/25 07:00 09/24/25 17:16 1 STRIP Insulin Human Regular ACHS SC 09/04/25 07:00 09/24/25 12:03 2 UNITS Dextrose 50 ml UD PRN IV 09/04/25 05:15 Pantoprazole Sodium 40 mg DAILY IV 09/06/25 10:00 09/24/25 10:07 40 MG Artificial Tears 1 drop Q4HP PRN EACHEYE 09/08/25 18:00 09/15/25 02:47 1 DROP Multi-Ingredient Ointment 1 applic DAILY TOP 09/10/25 10:00 09/24/25 10:10 1 APPLIC Norepinephrine Bitartrate 250 ml @ 3.75 mls/hr Q24H IV 09/15/25 08:45 09/24/25 16:54 18.75 MLS/HR Zirconium Oxide 10 gm BID PO 09/19/25 22:00 09/26/25 21:59 09/20/25 10:00 10 GM Bumetanide 1 mg BID IV 09/19/25 22:00 09/23/25 21:30 1 MG Enteral Nutritional Formula 1,000 ml 45ML/HR GT 09/21/25 19:30 Albumin Human 100 ml @ 100 mls/hr PRN PRN IV 09/22/25 05:45 09/24/25 16:49 100 MLS/HR Dextrose 1,000 ml @ 100 mls/hr Q10H IV 09/22/25 11:15 09/24/25 15:47 100 MLS/HR Laboratory Results Laboratory Tests 09/24/25 03:14 09/24/25 12:56 Chemistry Test 09/24/25 03:14 Albumin 3.3 g/dL (3.2-4.8) Calcium Level 12.5 mg/dL (8.7-10.4) H Total Protein 7.4 g/dL (5.7-8.2) LFT Test 09/24/25 03:14 Alanine Aminotransferase (ALT) 60 U/L (7-40) H Alkaline Phosphatase 421 U/L (46-116) H Aspartate Amino Transferase (AST) 195 U/L (13-40) H Total Bilirubin 0.3 mg/dL (0.2-1.0) Urinalysis Test 09/04/25 03:14 09/04/25 13:46 Urine Color Light-orange (Yellow) Urine Clarity Turbid (Clear) H Urine pH 5.5 (5.0-9.0) Urine Specific Mason 1.015 (1.001-1.035) Urine Protein 2+ (Negative) H Urine Ketones 1+ (Negative) H Urine Blood 3+ /uL (Negative) H Urine Nitrite Negative (Negative) Urine Bilirubin Negative (Negative) Urine Urobilinogen Normal mg/dL (Negative) Urine Leukocyte Esterase Negative /uL (Negative) Urine RBC 281 /hpf (0 - 4) Urine Microscopic WBC 37 /HPF (0-5) H Urine Squamous Epithelial Cells Few /hpf (<5) Urine Calcium Oxalate Crystals Few (None Seen) Urine Bacteria Few /hpf (None Seen) H Urine Hyaline Casts Many /lpf (0 - 2) Urine Mucus Few (None Seen) Urine Glucose Trace mg/dL (Normal) Urine Creatinine 85.45 mg/dL (30.0-125.0) Urine Protein/Creatinine Ratio 5.39 Urine Sodium 52 mmol/L (40-220) Urine Total Protein 460.9 mg/dL (1-14) H Blood Gas Results Test 09/24/25 06:59 Arterial Blood pH 7.504 (7.350-7.450) FiO2 % 30.0 Microbiology Microbiology Date/Time Source Procedure Growth Status 09/04/25 23:21 Urine - Sams Port Urine Culture - Final Complete 09/04/25 10:00 Nose MRSA Screen - Final Complete 09/04/25 04:22 Sputum Expectorated Sputum Gram Stain - Final Complete 09/04/25 04:22 Respiratory Culture - Final Staphylococcus aureus Complete 09/04/25 01:40 Blood Blood Culture - Final NO GROWTH AFTER 5 DAYS OF INCUBATION. Complete Assessment/Plan Assessment/Plan Impression: Acute hypoxic respiratory failure On mechanical ventilator Metabolic encephalopathy 2/2 anoxic brain injury S/p cardiac arrest (VF arrest - ROSC) Heart failure with reduced ejection fraction Non ST-elevation myocardial infarction MSSA/aspiration pneumonia Severe anemia requiring blood transfusion Shock liver KIMI stage 3 on solitary kidney Dialysis-dependent renal failure Complicated urinary tract infection Stage 1 sacral ulcer Plan: s/p intubation on mechanical ventilator. On AC mode; RR 14, VT 450, PEEP 5, FiO2 30% Titrate FIO2 to keep O2 saturation above 90%. VAP bundle. Daily ABG and CXR while intubated Remains off sedation CXR image and report reviewed. Devices in place. Bibasilar opacities. Small bilateral pleural effusions. Family refused ABG. Tidal volume reduced to 400. Supportive care Poor prognosis Awaiting family decision on goals of care. Nuclear brain perfusion scan consistent with brain EEG: Severe diffuse cerebral dysfunction consistent with severe hypoxic metabolic encephalopathy Neuro checks Neurology recommendations appreciated Follow up GI recommendations Cardiology recommendations appreciated. Echocardiogram reviewed: MODERATELY DILATED RV AND IS HYPOKINETIC DYSKINESIS OF IVS RVSP 40 MMHG - ELEVATED STUDY CONFIRMS RV FAILURE GLOBAL LV HYPOKINESIS LVEF IS 40% AND IS REDUCED Pressors for hemodynamic support Levophed 7 mcg/min Titrate to keep mean arterial pressure greater than 65 mmHg. Accu-Cheks, ISS PRN. HD per Nephrology Monitor renal function Monitor electrolytes. Supplement as necessary. Monitor ins and outs. Maintain euvolemia. Wound care. GI prophylaxis. DVT prophylaxis. Prognosis: Poor given patient's multiple co-morbidities. Condition: Critical Rest of plan per hospitalist and other consultants. A total of 35 minutes of critical care time was spent reviewing the patient record, examining the patient, making a diagnostic and therapeutic plan, discussing this plan with the medical personnel, following up on diagnostic studies and following the patient for clinical stability excluding any and all procedures. At least 50% of this time was spent in direct, [id number] contact. Thank you, Dr. Antoine, for allowing me to participate in this patient's care. Further recommendations will depend on the patient's clinical course. Please do not hesitate to contact me if you have any questions or concerns. This medical document was created using an electronic medical record system with [employer] system. Although these documentations are being carefully reviewed, there may still be some phonetic and typographical changes. The errors are purely typographical, due to imperfection on the software program, and do not reflect any compromise in the patient's medical care. Plan discussed with: Other (YANE Leon) My Orders Orders - MAXX COOPER MD Procedure Category Date Status Time End-Tidal Carbon WALTER 09/24/25 In Process Monoxide Urmila 13:05 Respiratory Misc. RT 09/24/25 Transmitted Order 13:05 Ventilator Orders RT 09/24/25 Transmitted 17:28 Visit Coding Pulmonary Billing Provider: MAXX COOPER MD Date of Service if different f: Sep 24, 2025 Common Visit Codes: 52384-[id number] INP/OBS CARE(HIGH), 57580-[id number] CARE 30-74 MIN MAXX COOPER MD Sep 24, 2025 19:22
[2025-09-24] MEDS: EPOETIN ALFA-EPBX 10,000 UNIT/1ML VIAL SC ONE (21:00)
[2025-09-25] VITALS (105 sets, daily range): BP systolic 74–137; BP diastolic 38–76; PULSE 85–99; RESP 14–17; TEMP 97.5–99.7; O2SAT 17–98
[2025-09-25 04:13] LABS: Hematocrit 27.0 % (36.0-46.0); Hemoglobin 8.5 g/dL (12.2-16.2); Mean Corpuscular Hemoglobin 23.1 pg (28.0-32.0); Mean Corpuscular Volume 73.3 fL (80.0-100.0); Nucleated Red Blood Cells % 0.5 %
[2025-09-25 04:36] LABS: Albumin 3.5 g/dL (3.2-4.8); Anion Gap 10 (5-15); BUN/Creatinine Ratio 12.8 (10.0-20.0); Carbon Dioxide 30 mmol/L (20-31); Chloride 98 mmol/L (98-107); Potassium 3.9 mmol/L (3.5-5.1); Sodium 138 mmol/L (136-145); Total Protein 7.3 g/dL (5.7-8.2)
[2025-09-25 04:43] LABS: Alanine Aminotransferase 102 U/L (7-40); Alkaline Phosphatase 454 U/L (46-116); Bilirubin, Total 0.3 mg/dL (0.2-1.0); Blood Urea Nitrogen 45 mg/dL (9-23); Calcium 11.6 mg/dL (8.7-10.4); Glucose 149 mg/dL (74-106)
[2025-09-25] MEDS: Nepro With Carb Steady 1 Liter Bottle GT SCH (04:47)
--- NOTE | 2025-09-25 05:39 | DVH ---
CHEST RADIOGRAPH Indication: Acute hypoxic respiratory failure Technique: Single frontal view of the chest was obtained COMPARISON: XY CHEST XRAY 1 VIEW on DOS: 09/24/25, XY CHEST PORTABLE on DOS: 09/23/25, XY CHEST XRAY 1 VIEW on DOS: 09/23/25, XY CHEST XRAY 1 VIEW on DOS: 09/22/25, XY CHEST XRAY 1 VIEW on DOS: 09/21/25 FINDINGS: Lines and Tubes: Endotracheal tube, enteric catheter and tunneled right central venous catheter in satisfactory position. Lungs: Unchanged pulmonary vascular congestion. Pleura: No effusion. No pneumothorax. Cardiomediastinal contours: Unremarkable Bones: Unremarkable IMPRESSION: Lines and tubes in satisfactory position. No significant interval change.
[2025-09-25 08:55] LABS: Base Excess 3.6 mmol/L (-2.0-3.0)
--- NOTE | 2025-09-25 09:17 | DVHPNRES ---
Progress Note Date Seen: Sep 25, 2025 Resident Creating Document: JUANA HUDSON RESIDENT Has the PT tested + for MRSA If YES, has PT been informed?: No Medical Necessity Reason Pt with a Central, PICC or Fol: Yes The following are medically ne: Central Line, Sams Catheter Subjective Review of Systems The patient is a 40-year-old female with past medical history of anxiety, UTIs, and kidney stones who presented to [facility] ED for evaluation of cardiac arrest. As reported by EMS/family, patient had cardiac arrest, was asystole 1238 a.m., CPR initiated by family. Patient was initially anxious but was not having any complaints like chest pain or shortness of breath. EMS were on the scene within 5 minutes, CPR continued, patient was given IV fluid, epinephrine x2, became VFib so patient was shocked at 100 joules, Narcan given, became asystole again upon arrival at ER at 0108 hours, blood sugar upon arrival was 43, ROSC obtained at 0112 a.m. Family also reports that patient was depressed for the past 5 years, she has been staying in bed with decreased oral intake, had a fall injury in April resulting in arm and hip fracture. They denied any other significant past medical history. Patient was seen and evaluated in the ED, laboratory data shows WBC 8.8, hemoglobin 6.4, hematocrit 25.0, platelets 260, sodium 151, potassium 6.3, BUN 29, creatinine 2.52, GFR 24, glucose 146, anion gap 28.001, calcium 7.9, lactic acid 21.1 trending down to 15.2, magnesium 4.1, AST 2482, ALT 1430, troponin 2769, BNP 8.48, lipase 31, protein 4.8, albumin 2.7, blood pressure 151/22 trending up to 107/30, heart rate 106, temperature 94.2 F, O2 saturation 97% on ventilator. Head CT showed no acute intracranial abnormality. Patient was started on IV antibiotic regimen vancomycin, please see medication orders section in the computer. On my assessment, patient remains fully intubated, no diaphoresis, no diarrhea, vomiting, no fever. Patient was admitted for further evaluation and medical management. past surgical history; family denies family history: noncontributory past social history: patient lives with the family, denies any smoking, alcohol, drug use 09/06/25: patient seen in ICU. Patient is intubated, on Levophed o, off sedation. Head CT showed diffuse cerebral and cerebellar edema due to anoxic brain injury. neurology following, neurology stated poor prognosis. Kidney functions worsening. Patient's family states before admission patient has seizure-like activity, loss of consciousness which was on and off during the whole day. 09/07/25 40-year-old female in the ICU following cardiopulmonary arrest on 09/04/25, now with severe anoxic brain injury. * Intubated, mechanically ventilated * Off all sedation * No spontaneous movements * No response to pain * No brainstem reflexes: absent corneal, cough, gag, oculocephalic reflexes * Pupils 8 mm, fixed, nonreactive * Family updated todaypoor prognosis discussed, but family chooses FULL CODE and wants everything done Overnight: * Urine output 250 mL total/ 0.15ML/KG/HR * Sams in place, urine [id number] annia * Tube feeds restarted, residuals 15 mL, tolerated * Small bowel movement today * Yamileth-care and sacral wound care performed EEG completed at bedside today for assessment of anoxic injury. Hemodynamics: * On norepinephrine drip for shock Respiratory: * Lungs clear except mild right basal infiltrates Consults: Neurology and Nephrology actively following. 09/08/25 The patient remains critically ill, intubated, mechanically ventilated, and off all sedation since 09/05. Overnight and through today, there continues to be no neurologic improvement. * Mental status unchanged and remains unresponsive/comatose * EEG yesterday inconclusive. Neurology now ordering brain perfusion scan today for brain evaluation * On norepinephrine drip, titrated 8 - 4 mcg/min * CXR today: no major change, persistent bilateral mixed pulmonary opacities and probable small pleural effusions * Oliguria continues * Urine output overnight: 100 mL * Total UO last 24h: 200 mL * Nephrology discontinued Lasix 80 mg BID * Lasix drip started * IR consulted for tunneled dialysis catheter placed today * Plan for hemodialysis/PHOTOLITHOGRAPHER likely tomorrow Patient remains in critical multiorgan dysfunction with severe irreversible anoxic brain injury, worsening renal failure requiring PHOTOLITHOGRAPHER preparation, hemodynamic instability requiring vasopressors, and persistent respiratory failure on the ventilator. No neurologic recovery. Full code per family request. 09/09/25 The patient remains critically ill, intubated, mechanically ventilated, and off all sedation since 09/05. Overnight and through today, there continues to be no neurologic improvement. * Mental status unchanged and remains unresponsive/comatose * EEG yesterday inconclusive . Neurology now ordering brain perfusion scan today for brain evaluation * Oliguria continues * IR consulted tunneled dialysis catheter today * Plan for hemodialysis/PHOTOLITHOGRAPHER likely tomorrow, patient developed b/l upper extremity rash near the right elbow and left antecubital fossa. Patient remains in critical multiorgan dysfunction with severe irreversible anoxic brain injury, worsening renal failure requiring PHOTOLITHOGRAPHER preparation, hemodynamic instability requiring vasopressors, and persistent respiratory failure on the ventilator. No neurologic recovery.Full code per family request. 09/10/25 he patient continues to remain critically ill, unresponsive, mechanically ventilated, off all sedation, with severe anoxic brain injury and no signs of neurologic recovery. Family continues to request FULL CODE and continuation of all aggressive medical care. * Urine output: 0.16 mL/kg/hr (severely oliguric) * Yesterday: Hemodialysis with 700 mL ultrafiltration * Today: Plan for 11.5 L ultrafiltration * Tunneled right IJ permacath placed 09/09 * Lasix drip discontinued * Creatinine 5.9 (improving from 7.58) * Iron studies: * Iron 11 (low),TIBC 204 (low),Saturation 5.4% (severely low),Ferritin 132 * EEG: Severe diffuse cerebral dysfunction consistent with severe hypoxic metabolic encephalopathy * Poor prognosis confirmed by neurology * Brain perfusion nuclear scan scheduled today/tomorrow for brain evaluation * Diffuse purpuric rash spreading over upper extremities and lower extremities * Ecchymosis + petechiae + non-blanching lesions * Rash progression after Unasyn possible beta-lactam hypersensitivity * Unasyn discontinued today * Doxycycline started 09/11/25 The patient was examined at bedside this morning. She remains critically ill, mechanically ventilated, unresponsive, and off all sedation. Today's major update is the nuclear brain perfusion scan showing complete absence of intracranial perfusion with hot-nose sign, radiologically consistent with BRAIN , pending final neurologic confirmation. Family was updated about the extremely poor prognosis; however, they insist on FULL CODE and full aggressive care. * When repositioned, HR drops into 30s returned to baseline after stabilization * SpO2: 98% on FiO2 30% * No fever * Urine output: 0.05 mL/kg/hr (severe oliguria) * HD yesterday removed 1.5 L UF * HD planned again tomorrow 09/12/25 The patient was evaluated at bedside today. She remains intubated, mechanically ventilated, and entirely unresponsive with no sedation on board. Neurology officially confirmed BRAIN today based on: * Absent brainstem reflexes * No spontaneous respiration * Nuclear medicine brain perfusion scan showing complete absence of intracranial perfusion * Clinical brain examination performed and documented This was explained thoroughly to the family. Despite clear communication, the family continues to request FULL CODE status and all aggressive measures, including long-term life support and LTAC placement. A social service manager/Case Management consult has been placed for LTAC disposition per family request. 09/13/2025 The patient was evaluated today in the ICU. She remains intubated, mechanically ventilated, on Levophed, and unresponsive with no sedation. She is afebrile, normocardic, and with MAP maintained on pressors. Labs today showed drop in Hb to 6.9, for which 1 unit of PRBC was transfused. Creatinine and BUN continue to increase, for which she was dialyzed today. Stool sample were also to evaluate any possible bleeding. Brain has been declared by neurology, family wishes for her to remain FULL CODE at this time. Per Fur Repairer, the patient does not qualify for LTAC placement at this time. We will continue to monitor. 09/14/25 The patient was evaluated at bedside today. She remains intubated and mechanically ventilated, without sedation, unresponsive, and with previously confirmed brain (absent brain perfusion, absent brainstem reflexes, nuclear perfusion scan positive for brain ). She continues to exhibit no neurologic function. Family met at bedside today. The irreversible prognosis and confirmed brain status were reviewed again. Family is currently discussing goals of care but for now insists the patient remain FULL CODE with continued aggressive care, including ongoing mechanical ventilation and dialysis as needed. Overnight Interval Events Hemoglobin dropped to 6.6 1 unit PRBC transfused post-transfusion Hgb 8.7 Dialysis removed 2 L Rash continues to improve No major ventilatory changes Hemodynamics fluctuating but stable with vasopressors 09/15/25 The patient was evaluated at bedside today. She remains intubated, mechanically ventilated, unresponsive without sedation. Neurologically, she continues to exhibit no cerebral or brainstem activity, consistent with previously documented brain on nuclear medicine perfusion study. Important new finding today: Despite clinical brain , the patient demonstrates spinal reflex activity, including: * Muscle twitching in upper extremities * Brief fast fasciculatory movements upon touch * Reflexive limb motion during turning and repositioning These findings are consistent with spinal reflex arcs, not cortical activity, and do not contradict brain physiology. Family has not yet decided regarding withdrawal of care and continues to insist on full aggressive measures. A second neurologist is scheduled for repeat confirmatory brain- exam today. Hemodialysis ongoing, with UF goal 1 L. Rash that developed after Unasyn is improving.Thrombocytopenia worsened (platelets 23,000). Hemoglobin dropped again. 09/16/25 The patient was evaluated at bedside today. She remains intubated, mechanically ventilated, and completely unresponsive without sedation. Her neurologic status continues to show no meaningful clinical neurologic function, however spinal reflex activity (muscle twitching on touch and during repositioning) persists, consistent with spinal cordmediated reflexes, not brain activity. A second neurologist completed a full clinical examination yesterday including cold caloric testing, corneal reflex, gag, cough reflex, pain response, and oculovestibular function: * Some isolated spinal reflex muscle activity was noted * Neurologist conclusion: * Does NOT meet full clinical criteria for brain because minimal brainstem reflex activity was detected * However, overall exam consistent with irreversible catastrophic anoxic brain injury * Radiologic findings remain consistent with brain pattern * Prognosis: extremely poor, essentially non-survivable anoxic injury Family was updated at bedside. They are considering terminal weaning, but request more time and have decided for now to continue FULL CODE, FULL AGGRESSIVE CARE. Patient continues on mechanical ventilation, dialysis-dependent KIMI,and poor neurologic prognosis. 09/17/25 The patient was evaluated at bedside today. She remains intubated, mechanically ventilated, profoundly unresponsive, and off all sedation. Her neurologic status is unchanged , consistent with irreversible catastrophic anoxic brain injury, although she does not meet full clinical criteria for formal brain (as per second neurologist evaluation). She continues to demonstrate intermittent spinal reflex activity (muscle twitching with touch or turning), consistent with spinal cordmediated reflexes. The family continues to deliberate regarding terminal weaning. They have not yet decided on the timing and request additional time. Until a final decision is made, they request FULL CODE and full aggressive support. No new acute events overnight. Hemodynamics remain supported with norepinephrine drip, titrated to maintain SPP > 90 mmHg per updated neuro-critical care plan. The patient is scheduled for hemodialysis today, with UF per nephrology recommendations. No other major changes in clinical condition. 09/18/25 The patient underwent hemodialysis yesterday, with 1.9 liters removed, and tolerated the procedure without acute complications. She remains on norepinephrine (LEVOPHED) infusion 58 mcg/min with blood pressures fluctuating between 116/65 and 90/57 mmHg. Repeat chest X-ray today shows increased interstitial prominence, raising concern for mild pulmonary congestion vs early interstitial edema. Most importantly, after multiple family meetings and extensive discussion with neurology and , the family has decided on terminal weaning tomorrow at 11:00 AM. Full supportive measures and full code status will be continued until the time of terminal weaning. 09/19/25: Patient seen and examined at bedside, had a long family discussion today, patient who is her POA was absent due to work, patient's family was determined and willing after her father coming from [place], 09/20/25 The patient underwent hemodialysis yesterday (09/19/25) with 1.0 L ultrafiltration removed, resulting in improvement in BUN (48 improved), creatinine (3.49 from 4.49), and potassium correction (5.4 - 4.2). She continues on norepinephrine (Levo) at 4 mcg/min for blood pressure support. No acute distress noted. Family meeting conducted today the patients family wishes to proceed with terminal weaning next week once the patients father arrives from [place]. Until then, they request continuation of full aggressive care with full code status. Doxycycline discontinued today as the full antibiotic course has been completed. No new overnight events. 09/21/25 Family states they are still waiting for the patients father to arrive from [place] before deciding on terminal weaning with comfort-focused care. Until then, they request continuation of full code and full aggressive management. Todays labs show worsening azotemia (BUN 64, Cr 4.41), hypernatremia (Na 147) likely from insensible losses and decreased free water intake, anemia with Hgb 8.4, thrombocytosis (platelets 566K), and ABG showing respiratory alkalosis with metabolic alkalosis compensation. Hemodialysis is scheduled for tomorrow per nephrology. Loop diuretics resumed. Tube feeding switched to Nepro formula. Free water boluses q4h through G-tube started. PTH level ordered. Respiratory secretions mild. Vent settings changed: respiratory rate decreased from 15 - 14. No acute overnight events. 09/22/25 Family has not yet finalized decision regarding terminal weaning. They request another [id number] meeting today. * On norepinephrine 46 mcg/min, titrated to maintain SPP > 90 and MAP > 65 Hypernatremia: * Sodium remained elevated at [address] at 153 * Tube-feed free water discontinued. * D5W infusion started at 100 mL/hr for controlled serum sodium reduction. * Strict I/O monitoring in place. 09/23/25 Patient was examined at bedside today. She remains unresponsive, intubated, mechanically ventilated, off all sedation, with no purposeful movements. Prior spinal reflex/twitching may still be present but no new neurologic activity is reported. Hemodynamics remain relatively stable on current ICU support. No reported fevers. Oxygenation and ventilation are stable on unchanged ventilator settings. Langston interval changes today: * Na improved to 142 (from 153 previously) * BUN 45, Cr 3.13 (improved from prior higher values) * CXR: Hazy bilateral opacities unchanged from yesterday; consistent with prior pulmonary congestion/infiltrates. Family / Goals of Care: * Family has confirmed they want terminal weaning but have not yet chosen the exact date. * They do NOT want PEG tube or tracheostomy and decline escalation to those procedures. * They want to continue full code and all current ICU-level medical management (including ventilator, pressors, dialysis, nutrition) except PEG and trach, until terminal weaning is performed. No new procedures today. 09/24/25 Family has not reached a final decision regarding terminal weaning and there is no update today regarding timing. They previously expressed intention to proceed with terminal extubation once decision is finalized, and continue FULL CODE status and ongoing life-support until then. 09/25/25: Patient seen and examined at bedside, Family has not reached a final decision regarding terminal weaning and there is no update today , continue full code status for now. No cough or gag reflex, patient has some decorticate movement. Patient has poor likelihood meaningful recovery, high likelihood demise. Objective vital signs Vital Sign Date Time Temp Pulse Resp B/P (MAP) Pulse Ox O2 Delivery O2 Flow Rate FiO2 09/25/25 07:16 94 14 101/54 (70) 97 30 09/25/25 06:00 Mechanical Ventilator+ 09/25/25 04:00 98.3 98.3 Total Intake and Output 09/24/25 09/24/25 09/25/25 14:59 22:59 06:59 Intake Total 900 ml 750 ml 289 ml Output Total 1025 ml 1500 ml Balance 900 ml -275 ml -1211 ml medications Current Medications Medications Dose Ordered Sig/Ese Route Start Time Stop Time Status Last Admin Dose Admin Diagnostic Test (Pha) 1 strip ACHS 09/04/25 07:00 09/25/25 06:36 1 STRIP Insulin Human Regular ACHS SC 09/04/25 07:00 09/25/25 06:50 2 UNITS Dextrose 50 ml UD PRN IV 09/04/25 05:15 Pantoprazole Sodium 40 mg DAILY IV 09/06/25 10:00 09/24/25 10:07 40 MG Artificial Tears 1 drop Q4HP PRN EACHEYE 09/08/25 18:00 09/15/25 02:47 1 DROP Multi-Ingredient Ointment 1 applic DAILY TOP 09/10/25 10:00 09/24/25 10:10 1 APPLIC Norepinephrine Bitartrate 250 ml @ 3.75 mls/hr Q24H IV 09/15/25 08:45 09/25/25 05:27 18.75 MLS/HR Zirconium Oxide 10 gm BID PO 09/19/25 22:00 09/26/25 21:59 09/20/25 10:00 10 GM Bumetanide 1 mg BID IV 09/19/25 22:00 09/24/25 21:50 1 MG Enteral Nutritional Formula 1,000 ml 45ML/HR GT 09/21/25 19:30 09/25/25 04:47 1,000 ML Albumin Human 100 ml @ 100 mls/hr PRN PRN IV 09/22/25 05:45 09/24/25 16:49 100 MLS/HR Dextrose 1,000 ml @ 100 mls/hr Q10H IV 09/22/25 11:15 09/25/25 02:06 100 MLS/HR Examination General: Unresponsive, ventilator-dependent. Neuro: No spontaneous movement. No corneal reflexes. Pupils fixed. Spinal reflex movements present (post-anoxic). Respiratory: Mechanically ventilated; breath sounds diminished, coarse bilaterally. CV: Sinus rhythm on monitor; pulses faint but present; norepinephrine-dependent. GI: Abdomen soft, nondistended, tube feeds via OG. : Sams catheter draining clear yellow urine. Extremities: Warm, 1+ edema, no mottling. Skin: Sacral area dry. Diffuse rash regressing. laboratory and microbiology Laboratory Tests 09/25/25 03:28 Test 09/25/25 03:28 Range/Units Serum Glucose 149 H 74-106 mg/dL Microbiology Date/Time Source Procedure Growth Status 09/04/25 23:21 Urine - Sams Port Urine Culture - Final Complete 09/04/25 10:00 Nose MRSA Screen - Final Complete 09/04/25 04:22 Sputum Expectorated Sputum Gram Stain - Final Complete 09/04/25 04:22 Respiratory Culture - Final Staphylococcus aureus Complete 09/04/25 01:40 Blood Blood Culture - Final NO GROWTH AFTER 5 DAYS OF INCUBATION. Complete Problem List/Assessment/Plan Problem List/Assessment/Plan Neurology #Catastrophic, irreversible, severe anoxic brain injury; extremely poor prognosis Metabolic encephalopathy (secondary to anoxic injury) * Imaging consistent with brain * Clinical exam does NOT meet full brain- criteria (minimal brainstem reflex activity) * Spinal reflexes present * Prognosis: terminal # History of anxiety # Questionable Seizure like activity -Neurology on board - Neurology stated poor prognosis * Continue neuro checks Q1H * Maintain normothermia * Avoid hypotension/hypoxia * Nuclear brain perfusion scan consistent with brain * EEG: Severe diffuse cerebral dysfunction consistent with severe hypoxic metabolic encephalopathy For now full code. * Family fully understands prognosis and has chosen comfort-focused withdrawal tomorrow at 11 AM * Second neurologist exam does not meet brain criteria but poor prognosis, family updated * Maintain current ventilatory support Cardiology #Postcardiac arrest state (VF arrest - ROSC) #Mixed cardiogenic + septic shock on norepinephrine # heart failure with reduced ejection fraction likely post cardiac arrest # Dyslipidemia # Non ST-elevation myocardial infarction likely type 2 status post cardiac arrest, type 1 not ruled out -Echo : Conclusion MODERATELY DILATED RV AND IS HYPOKINETIC DYSKINESIS OF IVS RVSP IS 40 MM OF HG AND IS HIGH STUDY CONFIRM RV FAILURE GLOBAL LV HYPOKINESIS LV EF IS 40% AND IS REDUCED NORMAL VALVES NO EFFUSION Maintain SPP (Systolic Perfusion Pressure) > 90 mmHg at all times. * Titrate norepinephrine (LEVOPHED) drip to maintain SPP > 90 mmHg. * Monitor for multi-organ shock progression.* Avoid hypotension to preserve brain perfusion * Cardiology involved * Daily EKG * Trend troponins Given anoxic brain injury, the patient is not a candidate for invasive cardiac work-up as per cardiology continue conservative medical management. * Bradycardia episodes with repositioning move gently Respiratory #Acute hypoxic respiratory failure requiring mechanical ventilation * AC/VC: RR 15, TV 450, PEEP 5, FiO2 30% * VAP bundle * Daily CXR * Oral care Q4H * SBT contraindicated Infectious Disease #MSSA / possible aspiration pneumonia * STOPPED Unasyn today due to allergic rash * continue doxycycline * Continue to monitor rash progression * Monitor sputum, blood, urine cultures * COVID/Flu negative * WBC (mild improvement) Hematology Microcytic anemia # severe anemia requiring blood transfusion -2 unit of PRBC transfused Started on IV IRON # coagulopathy likely due to sepsis Monitor Thrombocytopenia (Plt 124), resolved * * Hgb stable at 7.5 , Discontinued Heparin, transfuse only if <7 * Platelets normal * DVT prophylaxis: Heparin held due to anemia * Use SCDs Renal * KIMI stage 3 on solitary kidney *Dialysis-dependent renal failure * Continue daily evaluation for kidney replacement therapy. * Avoid nephrotoxins * Daily BMP, Mg, Phos hyperkalemia Corrected # hypernatremia -initially corrected with a half NS # metabolic acidosis due to sepsis Monitor ABG # respiratory alkalosis Decrease respiratory rate to 12 # hypomagnesemia Monitor Urology # complicated urinary tract infection -on antibiotics # Punctate nonobstructing right renal calculi. Seen on ultrasound # Left nephrectomy. Seen on ultrasound GI Shock liver (AST/ALT markedly elevated) now improving * Continue Nepro tube feeds @ 35 mL/hr * Check residuals Q4H * PPI for ulcer prophylaxis * Monitor stool output Endocrine * Insulin ACHS * Maintain BG [id number] Skin * Stage 1 sacral ulcer * Wound care following * Reposition Q2H * Beta-lactam hypersensitivity improving Ensure no heparin products (including flushes) STOP beta-lactams (done) Start doxycycline (done) Warm compresses to affected areas Reposition Q2H to reduce pressure contribution NO signs of cellulitis (no warmth) Topical emollients (Aquaphor) to reduce skin breakdown Monitor platelets daily OPHTHALMOLOGY * Conjunctival injection, swollen eyelids * Start Lacri-lube eye drops Q6H LINES / TUBES * ETT (09/04) * OG tube * Left femoral central line (09/04) * Sams catheter Right IJ tunneled dialysis catheter (09/09) * Daily line necessity review PROPHYLAXIS * DVT: SCDs only * GI: Pantoprazole * Ulcer: Q2H turns * VAP: oral care, CHG, HOB elevation SOCIAL WORK / FAMILY SUPPORT * Family updated extensively today Family meeting held * TERMINAL WEANING SCHEDULED FOR 11:00 AM TOMORROW * Request continuation of FULL CODE & full aggressive care for now * Social work available for support CODE STATUS FULL CODE Family updated today; despite detailed prognosis counseling, they request full aggressive measures and full code total time spent >20 mins CRITICAL CARE TIME 43 minutes of critical care time spent today, excluding procedure time. . DISCUSSION WITH ATTENDING Case reviewed in detail with attending physician Dr Ruiz. Management plan jointly agreed upon. including the clinical presentation, diagnostic workup, and comprehensive management plan. The patient's family was present for the discussion and demonstrated understanding of his condition and the proposed plan. Plan discussed with: Other (RN, Family) Dietary Evaluation Review Comments: 1. nepro 35/hr providing 68g pro, 1487kcal, 611ml free water, meeting 107% energy needs, 80% protein needs 2. Increase amount of Protein support for wound healing when/if pt's kidney function impvoes. F/U and reassess when pt is off vent and PRN. Expected Outcomes/Goals: Adequate nutrition support for being on mechanical ventilation CC Plasma Assessment Blood Product Administration S: 06:05 JUANA HUDSON RESIDENT Sep 25, 2025 09:17
--- NOTE | 2025-09-25 13:45 | DVHPN2 ---
Progress Note - Dictate Date Seen: Sep 25, 2025 Has the PT tested + for MRSA If YES, has PT been informed?: No Medical Necessity Reason Pt with a Central, PICC or Fol: No The following are medically ne: Central Line, Sams Catheter Subjective Ms. Murillo is a 40 years old female with a history of kidney stone, depression, anxiety, she was brought to the [facility] on 09/04/2025 with a chief complaint of cardio pulmonary arrest I have seen and examined the patient, talked to her nurse. No change in her clinical symptoms and physical examination. Her pupils are fixed, no gag reflexes, Rt: 7mm, Lt: 8mm She has spontaneous or pain/touch evoked decerebrate posturing Waiting for family to decide code status Urinalysis, 09/04/2025: WBC: 37, urine leukocyte esterase: Negative UDS, 09/04/2025: Negative Plasma alcohol, 09/04/2025: <3 ABG, 09/10/2025: Metabolic acidosis WBC/HB/PLT/MCV, 09/04/2025: 8.8/6.4/260/79.8 PT/INR/ABG, 09/04/2025: 70.4/1.73/ Na, 09/04/2025: 151, 148, 140 K, 09/04/2025: 6.3, 4.6, 3.2 BUN/CR, 09/04/2025: 30/2.69 09/12/25: 60 4/5.45 GFR, 09/12/2025: Nine TBI/AST/ALT/AP, 09/04/2025: 0.11/2481/4030/74, 0.01/5737/2100/93, 09/12/25: 0.2/148/180/165 Glucose, 09/04/2025: 146, 294, 503 HGB A1c, 09/04/2025: 5 Lactic acid, 09/04/2025: 21.1, or 15.2 Troponin one high sensitivity, 09/04/2025: 2769, 5664, 7574 TG/HDL/LDL/HDL, 09/04/2025: 186/86/41/25 Extremity venous study, 09/04/2025: NO SONOGRAPHIC EVIDENCE FOR DEEP VENOUS THROMBOSIS IN THE BILATERAL LOWER EXTREMITY VEINS Cerebral flow, 09/10/2025: Findings likely representing brain however clinical correlation is needed. Chest x-ray, 09/12/2025: Probable small bilateral pleural effusions with mild bibasilar atelectatic changes. CT head, 09/04/25: No acute intracranial abnormality (I saw evidence suggestive of early diffuse brain edema) CT head 09/05/25: Findings are consistent with severe diffuse cerebral and cerebellar edema possibly representing anoxic brain injury. vital signs Vital Sign Date Time Temp Pulse Resp B/P (MAP) Pulse Ox O2 Delivery O2 Flow Rate FiO2 09/25/25 12:09 88 14 110/64 (79) 96 30 09/25/25 08:00 Mechanical Ventilator+ 09/25/25 04:00 98.3 98.3 Total Intake and Output 09/24/25 09/24/25 09/25/25 15:00 23:00 07:00 Intake Total 900 ml 650 ml 289 ml Output Total 1025 ml 1500 ml Balance 900 ml -375 ml -1211 ml medications Current Medications Medications Dose Ordered Sig/Ese Route Start Time Stop Time Status Last Admin Dose Admin Diagnostic Test (Pha) 1 strip ACHS 09/04/25 07:00 09/25/25 12:43 1 STRIP Insulin Human Regular ACHS SC 09/04/25 07:00 09/25/25 12:49 2 UNITS Dextrose 50 ml UD PRN IV 09/04/25 05:15 Pantoprazole Sodium 40 mg DAILY IV 09/06/25 10:00 09/25/25 11:12 40 MG Artificial Tears 1 drop Q4HP PRN EACHEYE 09/08/25 18:00 09/15/25 02:47 1 DROP Multi-Ingredient Ointment 1 applic DAILY TOP 09/10/25 10:00 09/24/25 10:10 1 APPLIC Norepinephrine Bitartrate 250 ml @ 3.75 mls/hr Q24H IV 09/15/25 08:45 09/25/25 05:27 18.75 MLS/HR Zirconium Oxide 10 gm BID PO 09/19/25 22:00 09/26/25 21:59 09/20/25 10:00 10 GM Bumetanide 1 mg BID IV 09/19/25 22:00 09/25/25 11:12 1 MG Enteral Nutritional Formula 1,000 ml 45ML/HR GT 09/21/25 19:30 09/25/25 04:47 1,000 ML Albumin Human 100 ml @ 100 mls/hr PRN PRN IV 09/22/25 05:45 09/24/25 16:49 100 MLS/HR Dextrose 1,000 ml @ 100 mls/hr Q10H IV 09/22/25 11:15 09/25/25 12:17 100 MLS/HR objective The patient is well-nourished and well-developed with no distress. The patient is intubated MENTAL STATUS: Nonresponsive stroke painful stimuli CRANIAL NERVES: Pupils are equal, round, and fixed. There are no corneal reflexes and no doll's eyes phenomenon. No signs of facial weakness. There are no gagging or coughing reflexes SENSATION: No responses to strong pain stimuli. MOTOR: Normal muscle bulk. No fasciculations. No spontaneous movement. Increased muscle tone in the left upper extremity. See subjective REFLEXES: Deep tendon reflexes are symmetrical. No pathological reflexes. CEREBELLAR/COORDINATION: Deferred GAIT/STATION: deferred. laboratory and microbiology Laboratory Tests 09/25/25 03:28 Test 09/25/25 03:28 Range/Units Serum Glucose 149 H 74-106 mg/dL Problem List Cardiopulmonary arrest Coma/Metabolic/hypoxic encephalopathy Metabolic acidosis Acute respiratory failure Elevated troponin/heart attack Severe anemia Shocked liver Hypernatremia Increased muscle tone in the left arm Decerebrate posturing Assessment/Plan Monitoring Supportive treatment ICU care Follow up labs Stabilize vitals/pressor drip Respiratory support/vent management Oxygen Antibiotics DVT prophylaxis GI prophylaxis More recommendation per clinical course Poor prognosis for meaningful/overall recovery Family to decide code status This medical document was created using an electronic medical record system with [employer] dictation system. Although this document has been carefully reviewed, there may still be some phonetic and typographical errors. These areas are purely typographical due to imperfections of the software programs, and do not reflect any compromise in the patient's medical care. Prognosis poor Dietary Evaluation Review Comments: 1. nepro 35/hr providing 68g pro, 1487kcal, 611ml free water, meeting 107% energy needs, 80% protein needs 2. Increase amount of Protein support for wound healing when/if pt's kidney function impvoes. F/U and reassess when pt is off vent and PRN. Expected Outcomes/Goals: Adequate nutrition support for being on mechanical ventilation Plan discussed with: Other CC Plasma Assessment Blood Product Administration S: 06:05 ALEXIS DEL ANGEL MD Sep 25, 2025 13:45
--- NOTE | 2025-09-25 14:17 | DVHPN2 ---
Progress Note Date Seen: Sep 25, 2025 Resident Creating Document: CHIDI BOWERS RESIDENT Has the PT tested + for MRSA If YES, has PT been informed?: No Medical Necessity Reason Pt with a Central, PICC or Fol: No The following are medically ne: Central Line, Sams Catheter Subjective Review of Systems Patient seen and examined at the bedside. Unable to obtain ROS due to patient's clinical status intubated and on mechanical ventilation. Patient reports: No new complaints Changes from previous H/P or p: No Changes Review of Systems: RESPIRATORY:Abnormal Other Systems: Patient seen and examined by myself today on rounds with the medicine resident, I agree with the assessment and plan Objective vital signs Vital Sign Date Time Temp Pulse Resp B/P (MAP) Pulse Ox O2 Delivery O2 Flow Rate FiO2 09/25/25 14:00 86 14 99/57 (71) 96 09/25/25 12:09 30 09/25/25 12:00 97.5 97.5 09/25/25 08:00 Mechanical Ventilator+ Total Intake and Output 09/24/25 09/24/25 09/25/25 15:00 23:00 07:00 Intake Total 900 ml 650 ml 289 ml Output Total 1025 ml 1500 ml Balance 900 ml -375 ml -1211 ml medications Current Medications Medications Dose Ordered Sig/Ese Route Start Time Stop Time Status Last Admin Dose Admin Diagnostic Test (Pha) 1 strip ACHS 09/04/25 07:00 09/25/25 12:43 1 STRIP Insulin Human Regular ACHS SC 09/04/25 07:00 09/25/25 12:49 2 UNITS Dextrose 50 ml UD PRN IV 09/04/25 05:15 Pantoprazole Sodium 40 mg DAILY IV 09/06/25 10:00 09/25/25 11:12 40 MG Artificial Tears 1 drop Q4HP PRN EACHEYE 09/08/25 18:00 09/15/25 02:47 1 DROP Multi-Ingredient Ointment 1 applic DAILY TOP 09/10/25 10:00 09/24/25 10:10 1 APPLIC Norepinephrine Bitartrate 250 ml @ 3.75 mls/hr Q24H IV 09/15/25 08:45 09/25/25 05:27 18.75 MLS/HR Zirconium Oxide 10 gm BID PO 09/19/25 22:00 09/26/25 21:59 09/20/25 10:00 10 GM Bumetanide 1 mg BID IV 09/19/25 22:00 09/25/25 11:12 1 MG Enteral Nutritional Formula 1,000 ml 45ML/HR GT 09/21/25 19:30 09/25/25 04:47 1,000 ML Albumin Human 100 ml @ 100 mls/hr PRN PRN IV 09/22/25 05:45 09/24/25 16:49 100 MLS/HR Dextrose 1,000 ml @ 100 mls/hr Q10H IV 09/22/25 11:15 09/25/25 12:17 100 MLS/HR Examination General Appearance: mild distress, Other (Intubated, on vent) HEENT: Atraumatic, PERRLA, Other Lungs: Slightly diminished sounds Cardiovascular: Normal S1, Normal S2 Abdomen: Normal bowel sounds, Soft, No tenderness, No hepatosplenomegaly, No masses Genitourinary: Sams catheter Musculoskeletal: Trace edema Neuro: Unable to assess Skin: Dry, Intact laboratory and microbiology Laboratory Tests 09/25/25 03:28 Test 09/25/25 03:28 Range/Units Serum Glucose 149 H 74-106 mg/dL Microbiology Date/Time Source Procedure Growth Status 09/04/25 23:21 Urine - Sams Port Urine Culture - Final Complete 09/04/25 10:00 Nose MRSA Screen - Final Complete 09/04/25 04:22 Sputum Expectorated Sputum Gram Stain - Final Complete 09/04/25 04:22 Respiratory Culture - Final Staphylococcus aureus Complete 09/04/25 01:40 Blood Blood Culture - Final NO GROWTH AFTER 5 DAYS OF INCUBATION. Complete Labs and/or images reviewed: Labs reviewed by me, Image(s) reviewed by me Problem List/Assessment/Plan Problem List/Assessment/Plan KIMI, from [facility] due to cardiac arrest requiring hemodialysis Hypernatremia resolved Acute respiratory failure, intubated on ventilator Status post cardiac arrest Anoxic encephalopathy Cardiogenic/septic shock NSTEMI Plan/recommendation: Hemodialysis tomorrow Hyperkalemia resolved Epogen 25164 subQ 3 times weekly Strict I&Os, loop diuretic resumed nepro tube feeding, phos , pth level Monitor urinary output ,improved Vasopressor per primary team Avoid nephrotoxic medication Ct head--anoxic encephalopathy EEG/perfusion scan showed anoxic brain injury, defer to neurology and primary for alf care and management Poor prognosis Case discussed with the Dr. Barrera Plan discussed with: Other (rn) Dietary Evaluation Review Comments: 1. nepro 35/hr providing 68g pro, 1487kcal, 611ml free water, meeting 107% energy needs, 80% protein needs 2. Increase amount of Protein support for wound healing when/if pt's kidney function impvoes. F/U and reassess when pt is off vent and PRN. Expected Outcomes/Goals: Adequate nutrition support for being on mechanical ventilation CC Plasma Assessment Blood Product Administration S: 06:05 CHIDI BOWERS RESIDENT Sep 25, 2025 14:17 CARISSA BARRERA MD Sep 26, 2025 09:47
--- NOTE | 2025-09-25 21:14 | DVH ---
CLINICAL HISTORY: NG TUBE PLACEMENT TECHNIQUE: AP view of the chest was obtained. WID: COMPARISON: XY CHEST XRAY 1 VIEW on DOS: 09/25/25, XY CHEST XRAY 1 VIEW on DOS: 09/24/25, XY CHEST PORTABLE on DOS: 09/23/25, XY CHEST XRAY 1 VIEW on DOS: 09/23/25, XY CHEST XRAY 1 VIEW on DOS: 09/22/25 FINDINGS: Nasogastric tube terminates in the stomach. Partially imaged opacities within the lower lungs. Partially imaged tunnel central venous catheter. IMPRESSION: Nasogastric tube terminates in the stomach. No additional change when compared to prior
--- NOTE | 2025-09-25 22:58 | DVHPN2 ---
Subjective DOS: 09/25/2025 Patient seen and examined at bedside. Intubated on mechanical ventilator. Overnight events reviewed. Changes from previous H/P or p: No Changes Eyes: No Pain, No Vision change, No Conjunctivae inflammation, No Eyelid inflammation, No Other, No Redness ENT: No Ear pain, No Ear discharge, No Nose pain, No Nose discharge, No Nose congestion, No Mouth pain, No Mouth swelling, No Throat pain, No Throat swelling, No Other Cardiovascular: No Chest Pain, No Palpitations, No Orthopnea, No Paroxysmal Noc. Dyspnea, No Edema, No Lt Headedness; Other (Cardiac arrest) Respiratory: No Cough, No Dry; Shortness of breath; No SOB with excertion, No Wheezing, No Hemoptysis, No Pleuritic Pain, No Sputum; Other (On ventilator) Gastrointestinal: No Nausea, No Vomiting, No Abdominal Pain, No Diarrhea, No Constipation, No Melena, No Hematochezia, No Other Genitourinary: No Dysuria, No Frequency, No Incontinence, No Hematuria, No Retention; Other (Sams catheter in place) Musculoskeletal: No other, No neck pain, No shoulder pain, No arm pain, No back pain, No hand pain, No leg pain, No foot pain Skin: No Rash, No Lesions, No Jaundice, No Bruising, No Other Objective Vitals Vital Signs Date Time Temp Pulse Resp B/P (MAP) Pulse Ox O2 Delivery O2 Flow Rate FiO2 09/25/25 22:45 92 14 105/67 (80) 96 09/25/25 22:32 30 09/25/25 22:00 Mechanical Ventilator+ 09/25/25 20:00 98.1 98.1 Intake/Output Intake and Output 09/25/25 07:00 Intake Total 1839 ml Output Total 2525 ml Balance -686 ml IV Total 1300 ml Tube Feeding 539 ml Output Urine Total 2475 ml Oral Regurgitation 50 ml # Bowel Movements 1 Exam Gen.: Patient lying in bed in medical ICU. Intubated on mechanical ventilator. Head: Normocephalic, atraumatic. Eyes: PERRLA. Ears: Normal external anatomy. Throat: Endotracheal tube and orogastric tube in place. Neck: Supple, trachea midline. Chest: Transmitted breath sounds bilaterally. Decreased air entry bilaterally. No wheezing. Bibasilar crackles. Cardiovascular: Positive S1, positive S2. Regular rate and rhythm. Abdomen: Positive bowel sounds in all 4 quadrants. Soft, nontender, nondistended. : Sams in place. Normal external genitalia. Rectal: Deferred. Skin: Warm, dry. Intact. Extremities: 2+ radial pulses bilaterally. No lower extremity edema. Neuro: Off sedation, unresponsive. Decorticate movements; no cough/gag. Medications Current Medications Medications Dose Ordered Sig/Ese Route Start Time Stop Time Status Last Admin Dose Admin Diagnostic Test (Pha) 1 strip ACHS 09/04/25 07:00 09/25/25 21:38 1 STRIP Insulin Human Regular ACHS SC 09/04/25 07:00 09/25/25 21:37 2 UNITS Dextrose 50 ml UD PRN IV 09/04/25 05:15 Pantoprazole Sodium 40 mg DAILY IV 09/06/25 10:00 09/25/25 11:12 40 MG Artificial Tears 1 drop Q4HP PRN EACHEYE 09/08/25 18:00 09/15/25 02:47 1 DROP Multi-Ingredient Ointment 1 applic DAILY TOP 09/10/25 10:00 09/24/25 10:10 1 APPLIC Norepinephrine Bitartrate 250 ml @ 3.75 mls/hr Q24H IV 09/15/25 08:45 09/25/25 17:08 22.5 MLS/HR Zirconium Oxide 10 gm BID PO 09/19/25 22:00 09/26/25 21:59 09/20/25 10:00 10 GM Bumetanide 1 mg BID IV 09/19/25 22:00 09/25/25 21:26 1 MG Enteral Nutritional Formula 1,000 ml 45ML/HR GT 09/21/25 19:30 09/25/25 04:47 1,000 ML Albumin Human 100 ml @ 100 mls/hr PRN PRN IV 09/22/25 05:45 09/24/25 16:49 100 MLS/HR Dextrose 1,000 ml @ 100 mls/hr Q10H IV 09/22/25 11:15 09/25/25 21:38 100 MLS/HR Laboratory Results Laboratory Tests 09/25/25 03:28 Chemistry Test 09/25/25 03:28 Albumin 3.5 g/dL (3.2-4.8) Calcium Level 11.6 mg/dL (8.7-10.4) H Total Protein 7.3 g/dL (5.7-8.2) LFT Test 09/25/25 03:28 Alanine Aminotransferase (ALT) 102 U/L (7-40) H Alkaline Phosphatase 454 U/L (46-116) H Aspartate Amino Transferase (AST) 290 U/L (13-40) H Total Bilirubin 0.3 mg/dL (0.2-1.0) Urinalysis Test 09/04/25 03:14 09/04/25 13:46 Urine Color Light-orange (Yellow) Urine Clarity Turbid (Clear) H Urine pH 5.5 (5.0-9.0) Urine Specific [place] 1.015 (1.001-1.035) Urine Protein 2+ (Negative) H Urine Ketones 1+ (Negative) H Urine Blood 3+ /uL (Negative) H Urine Nitrite Negative (Negative) Urine Bilirubin Negative (Negative) Urine Urobilinogen Normal mg/dL (Negative) Urine Leukocyte Esterase Negative /uL (Negative) Urine RBC 281 /hpf (0 - 4) Urine Microscopic WBC 37 /HPF (0-5) H Urine Squamous Epithelial Cells Few /hpf (<5) Urine Calcium Oxalate Crystals Few (None Seen) Urine Bacteria Few /hpf (None Seen) H Urine Hyaline Casts Many /lpf (0 - 2) Urine Mucus Few (None Seen) Urine Glucose Trace mg/dL (Normal) Urine Creatinine 85.45 mg/dL (30.0-125.0) Urine Protein/Creatinine Ratio 5.39 Urine Sodium 52 mmol/L (40-220) Urine Total Protein 460.9 mg/dL (1-14) H Blood Gas Results Test 09/25/25 08:01 Arterial Blood pH 7.346 (7.350-7.450) FiO2 % 30.0 Microbiology Microbiology Date/Time Source Procedure Growth Status 09/04/25 23:21 Urine - Sams Port Urine Culture - Final Complete 09/04/25 10:00 Nose MRSA Screen - Final Complete 09/04/25 04:22 Sputum Expectorated Sputum Gram Stain - Final Complete 09/04/25 04:22 Respiratory Culture - Final Staphylococcus aureus Complete 09/04/25 01:40 Blood Blood Culture - Final NO GROWTH AFTER 5 DAYS OF INCUBATION. Complete Assessment/Plan Assessment/Plan Impression: Acute hypoxic respiratory failure On mechanical ventilator Metabolic encephalopathy 2/2 anoxic brain injury S/p cardiac arrest (VF arrest - ROSC) Heart failure with reduced ejection fraction Non ST-elevation myocardial infarction MSSA/aspiration pneumonia Severe anemia requiring blood transfusion Shock liver KIMI stage 3 on solitary kidney Dialysis-dependent renal failure Complicated urinary tract infection Stage 1 sacral ulcer Events: Remains on vent support On AC mode; RR 14, VT 400, PEEP 5, FiO2 30% Hemodialysis per Nephrology -HD today. Anemia - hemoglobin of 8.5 g/dL Patient with decorticate movements; no cough/gag. Neurology second opinion noted. Patient has poor likelihood of meaningful recovery. High likelihood of demise. Labs and imaging reviewed. Rest of plan as noted below. Plan: s/p intubation on mechanical ventilator. On AC mode; RR 14, VT 400, PEEP 5, FiO2 30% Titrate FIO2 to keep O2 saturation above 90%. VAP bundle. Daily ABG and CXR while intubated Remains off sedation CXR image and report reviewed. Devices in place. Bibasilar opacities. Small bilateral pleural effusions. Family refused ABG. Supportive care Poor prognosis Awaiting family decision on goals of care. Nuclear brain perfusion scan consistent with brain EEG: Severe diffuse cerebral dysfunction consistent with severe hypoxic metabolic encephalopathy Neuro checks Neurology recommendations appreciated Follow up GI recommendations Cardiology recommendations appreciated. Echocardiogram reviewed: MODERATELY DILATED RV AND IS HYPOKINETIC DYSKINESIS OF IVS RVSP 40 MMHG - ELEVATED STUDY CONFIRMS RV FAILURE GLOBAL LV HYPOKINESIS LVEF IS 40% AND IS REDUCED Pressors for hemodynamic support Levophed 7 mcg/min Titrate to keep mean arterial pressure greater than 65 mmHg. Accu-Cheks, ISS PRN. HD per Nephrology Monitor renal function Monitor electrolytes. Supplement as necessary. Monitor ins and outs. Maintain euvolemia. Wound care. GI prophylaxis. DVT prophylaxis. Prognosis: Poor given patient's multiple co-morbidities. Condition: Critical Rest of plan per hospitalist and other consultants. A total of 35 minutes of critical care time was spent reviewing the patient record, examining the patient, making a diagnostic and therapeutic plan, discussing this plan with the medical personnel, following up on diagnostic studies and following the patient for clinical stability excluding any and all procedures. At least 50% of this time was spent in direct, [id number] contact. Thank you, Dr. Antoine, for allowing me to participate in this patient's care. Further recommendations will depend on the patient's clinical course. Please do not hesitate to contact me if you have any questions or concerns. This medical document was created using an electronic medical record system with [employer] dictation system. Although these documentations are being carefully reviewed, there may still be some phonetic and typographical changes. The errors are purely typographical, due to imperfection on the software program, and do not reflect any compromise in the patient's medical care. Plan discussed with: Other (YANE Sanches) Visit Coding Pulmonary Billing Provider: MAXX COOPER MD Date of Service if different f: Sep 25, 2025 Common Visit Codes: [id number] INP/OBS CARE(HIGH), [id number] CARE 30-74 MIN MAXX COOPER MD Sep 25, 2025 22:57
--- NOTE | 2025-09-25 23:37 | DVHPN2 ---
Progress Note - Dictate Date Seen: Sep 25, 2025 Has the PT tested + for MRSA If YES, has PT been informed?: No Medical Necessity Reason Pt with a Central, PICC or Fol: Yes The following are medically ne: Central Line, Sams Catheter Subjective Patient was seen and evaluated in follow up in the ICU. Patient is intubated on ventilator. FiO2 30%. Patient is s/p HD with 500 mL removed. Family has not reached a final decision regarding terminal weaning and there is no update today. HGB 8.5, HCT 27, BUN 45, HUSKER OPERATOR 3.52, AST 290, ALT 102. Chest x-ray showed unchanged pulmonary vascular congestion. vital signs Vital Sign Date Time Temp Pulse Resp B/P (MAP) Pulse Ox O2 Delivery O2 Flow Rate FiO2 09/25/25 12:09 88 14 110/64 (79) 96 30 09/25/25 08:00 Mechanical Ventilator+ 09/25/25 04:00 98.3 98.3 Total Intake and Output 09/24/25 09/24/25 09/25/25 15:00 23:00 07:00 Intake Total 900 ml 650 ml 289 ml Output Total 1025 ml 1500 ml Balance 900 ml -375 ml -1211 ml medications Current Medications Medications Dose Ordered Sig/Ese Route Start Time Stop Time Status Last Admin Dose Admin Diagnostic Test (Pha) 1 strip ACHS 09/04/25 07:00 09/25/25 06:36 1 STRIP Insulin Human Regular ACHS SC 09/04/25 07:00 09/25/25 06:50 2 UNITS Dextrose 50 ml UD PRN IV 09/04/25 05:15 Pantoprazole Sodium 40 mg DAILY IV 09/06/25 10:00 09/25/25 11:12 40 MG Artificial Tears 1 drop Q4HP PRN EACHEYE 09/08/25 18:00 09/15/25 02:47 1 DROP Multi-Ingredient Ointment 1 applic DAILY TOP 09/10/25 10:00 09/24/25 10:10 1 APPLIC Norepinephrine Bitartrate 250 ml @ 3.75 mls/hr Q24H IV 09/15/25 08:45 09/25/25 05:27 18.75 MLS/HR Zirconium Oxide 10 gm BID PO 09/19/25 22:00 09/26/25 21:59 09/20/25 10:00 10 GM Bumetanide 1 mg BID IV 09/19/25 22:00 09/25/25 11:12 1 MG Enteral Nutritional Formula 1,000 ml 45ML/HR GT 09/21/25 19:30 09/25/25 04:47 1,000 ML Albumin Human 100 ml @ 100 mls/hr PRN PRN IV 09/22/25 05:45 09/24/25 16:49 100 MLS/HR Dextrose 1,000 ml @ 100 mls/hr Q10H IV 09/22/25 11:15 09/25/25 02:06 100 MLS/HR objective GENERAL: Ill appearing, intubated on ventilator. EYES: PERRL, EOMI. Anicteric. HENT: Moist mucous membranes. LUNGS: Decreased breath sounds. CARDIOVASCULAR: Regular rate and rhythm. ABDOMEN: Soft, nontender and nondistended. EXTREMITIES: No edema. SKIN: Warm, dry. laboratory and microbiology Laboratory Tests 09/25/25 03:28 Test 09/25/25 03:28 Range/Units Serum Glucose 149 H 74-106 mg/dL Problem List Cardiopulmonary arrest with ROSC. Ventricular fibrillation arrest with defibrillation at 100J. Non ST-elevation myocardial infarction. Acute anemia status post blood transfusion (-FOBT). Acute hypoxic respiratory failure. Likely KIMI on CKD. Left nephrectomy. Shocked Liver. Dyslipidemia, newly diagnosed. Cerebral and cerebellar edema, anoxic brain injury. ? Suspected PE with RV failure and PAH. Assessment/Plan Continued all current supportive medical care. GI prophylactics. Diuretics with Bumex. Vasopressors for hemodynamic support. Additional plan as per the hospital course. Critical care time of 45 minutes provided to include time spent evaluation of patient at bedside, when appropriate patient/family education for diagnosis, treatment plan, review of pertinent medical information and discussion of care with specialty providers and PCP. Mechanical ventilator parameters, treatment and adjustments have personally been reviewed by me and treatment plan by range aide has also been reviewed. Dietary Evaluation Review Comments: 1. nepro 35/hr providing 68g pro, 1487kcal, 611ml free water, meeting 107% energy needs, 80% protein needs 2. Increase amount of Protein support for wound healing when/if pt's kidney function impvoes. F/U and reassess when pt is off vent and PRN. Expected Outcomes/Goals: Adequate nutrition support for being on mechanical ventilation Plan discussed with: Other CC Plasma Assessment Blood Product Administration S: 06:05 RISHI SOARES MD Sep 25, 2025 12:26
[2025-09-26] VITALS (110 sets, daily range): BP systolic 89–180; BP diastolic 49–84; PULSE 80–107; RESP 14–16; TEMP 97.5–100.2; O2SAT 92–100
[2025-09-26 03:48] LABS: Hemoglobin 8.5 g/dL (12.2-16.2)
[2025-09-26 03:51] LABS: Hematocrit 27.4 % (36.0-46.0); Mean Corpuscular Hemoglobin 22.8 pg (28.0-32.0); Mean Corpuscular Volume 72.9 fL (80.0-100.0)
[2025-09-26 04:15] LABS: Albumin 3.4 g/dL (3.2-4.8); Anion Gap 12 (5-15); BUN/Creatinine Ratio 14.2 (10.0-20.0); Carbon Dioxide 29 mmol/L (20-31); Potassium 3.6 mmol/L (3.5-5.1); Sodium 138 mmol/L (136-145); Total Protein 7.4 g/dL (5.7-8.2)
[2025-09-26 04:17] LABS: Alanine Aminotransferase 129 U/L (7-40); Alkaline Phosphatase 472 U/L (46-116); Bilirubin, Total 0.2 mg/dL (0.2-1.0); Blood Urea Nitrogen 51 mg/dL (9-23); Calcium 12.1 mg/dL (8.7-10.4); Chloride 97 mmol/L (98-107); Glucose 179 mg/dL (74-106)
[2025-09-26 05:05] LABS: Total Cells Counted 100.0 (100)
--- NOTE | 2025-09-26 05:56 | DVH ---
CHEST RADIOGRAPH Indication: Intubated Technique: Single frontal view of the chest was obtained COMPARISON: XY CHEST PORTABLE on DOS: 09/25/25, XY CHEST XRAY 1 VIEW on DOS: 09/25/25, XY CHEST XRAY 1 VIEW on DOS: 09/24/25, XY CHEST PORTABLE on DOS: 09/23/25, XY CHEST XRAY 1 VIEW on DOS: 09/23/25 FINDINGS: Lines and Tubes: Unchanged. Lungs: Mild Interval progression in bibasilar pulmonary airspace disease and bilateral pleural effusions. No pneumothorax. Cardiomediastinal contours: Unremarkable Bones: Unremarkable IMPRESSION: 1. Mild interval progression in bibasilar pulmonary airspace disease and bilateral pleural effusions. 2. Lines and tubes unchanged.
[2025-09-26 06:54] LABS: Base Excess 3.3 mmol/L (-2.0-3.0)
[2025-09-26] MEDS: SODIUM CHL 0.9% 1000 ML BAG XX ONE (07:00)
--- NOTE | 2025-09-26 10:28 | DVHPN2 ---
Progress Note Date Seen: Sep 26, 2025 Has the PT tested + for MRSA If YES, has PT been informed?: No Medical Necessity Reason Pt with a Central, PICC or Fol: Yes The following are medically ne: Central Line, Sams Catheter Subjective Review of Systems: RESPIRATORY:Abnormal Other Systems: Patient seen and examined by myself today in follow-up, patient remained intubated on ventilator Patient examined hemodialysis, blood pressure stable Objective vital signs Vital Sign Date Time Temp Pulse Resp B/P (MAP) Pulse Ox O2 Delivery O2 Flow Rate FiO2 09/26/25 10:10 73/36 09/26/25 10:00 14 94 Mechanical Ventilator+ 30 30 09/26/25 10:00 80 09/26/25 08:00 97.7 97.7 Total Intake and Output 09/25/25 09/25/25 09/26/25 15:00 23:00 07:00 Intake Total 800 ml 1212 ml 1184 ml Output Total 1850 ml 2150 ml Balance 800 ml -638 ml -966 ml medications Current Medications Medications Dose Ordered Sig/Ese Route Start Time Stop Time Status Last Admin Dose Admin Diagnostic Test (Pha) 1 strip ACHS 09/04/25 07:00 09/26/25 06:26 1 STRIP Insulin Human Regular ACHS SC 09/04/25 07:00 09/26/25 06:26 3 UNITS Dextrose 50 ml UD PRN IV 09/04/25 05:15 Pantoprazole Sodium 40 mg DAILY IV 09/06/25 10:00 09/25/25 11:12 40 MG Artificial Tears 1 drop Q4HP PRN EACHEYE 09/08/25 18:00 09/15/25 02:47 1 DROP Multi-Ingredient Ointment 1 applic DAILY TOP 09/10/25 10:00 09/24/25 10:10 1 APPLIC Norepinephrine Bitartrate 250 ml @ 3.75 mls/hr Q24H IV 09/15/25 08:45 09/26/25 10:06 35.625 MLS/HR Zirconium Oxide 10 gm BID PO 09/19/25 22:00 09/26/25 21:59 09/20/25 10:00 10 GM Bumetanide 1 mg BID IV 09/19/25 22:00 09/25/25 21:26 1 MG Enteral Nutritional Formula 1,000 ml 45ML/HR GT 09/21/25 19:30 09/26/25 04:29 1,000 ML Albumin Human 100 ml @ 100 mls/hr PRN PRN IV 09/22/25 05:45 09/24/25 16:49 100 MLS/HR Dextrose 1,000 ml @ 100 mls/hr Q10H IV 09/22/25 11:15 09/26/25 06:50 100 MLS/HR laboratory and microbiology Laboratory Tests 09/26/25 03:07 Test 09/26/25 03:07 Range/Units Serum Glucose 179 H 74-106 mg/dL Microbiology Date/Time Source Procedure Growth Status 09/04/25 23:21 Urine - Sams [place] Urine Culture - Final Complete 09/04/25 10:00 Nose MRSA Screen - Final Complete 09/04/25 04:22 Sputum Expectorated Sputum Gram Stain - Final Complete 09/04/25 04:22 Respiratory Culture - Final Staphylococcus aureus Complete 09/04/25 01:40 Blood Blood Culture - Final NO GROWTH AFTER 5 DAYS OF INCUBATION. Complete Problem List/Assessment/Plan Problem List/Assessment/Plan KIMI, from [facility]N due to cardiac arrest requiring hemodialysis Hypernatremia resolved Acute respiratory failure, intubated on ventilator Status post cardiac arrest Anoxic encephalopathy Cardiogenic/septic shock NSTEMI Plan/recommendation: Continue with UF 1-2 L as tolerated Epogen 79865 subQ 3 times weekly Hyperkalemia resolved Epogen 69153 subQ 3 times weekly Strict I&Os, loop diuretic resumed nepro tube feeding, phos , pth level Monitor urinary output ,improved Vasopressor per primary team Avoid nephrotoxic medication Ct head--anoxic encephalopathy EEG/perfusion scan showed anoxic brain injury, defer to neurology and primary for assisted care and management Poor prognosis Plan discussed with: Other (Nurse) My Orders My Orders Orders - CARISSA BARRERA MD Procedure Category Date Status Time Hemodialysis Orders ORDERS 09/26/25 Transmitted 07:00 Dialysis Nursing WALTER 09/26/25 In Process Message 07:00 Document Fluid Input WALTER 09/26/25 In Process And Outpu 07:00 Epoetin Nahun-Epbx PHA 09/26/25 In Process (Retacrit) 21:00 Dietary Evaluation Review Comments: 1. nepro 35/hr providing 68g pro, 1487kcal, 611ml free water, meeting 107% energy needs, 80% protein needs 2. Increase amount of Protein support for wound healing when/if pt's kidney function impvoes. F/U and reassess when pt is off vent and PRN. Expected Outcomes/Goals: Adequate nutrition support for being on mechanical ventilation CC Plasma Assessment Blood Product Administration S: 06:05 CARISSA BARRERA MD Sep 26, 2025 10:28
--- NOTE | 2025-09-26 11:34 | DVHPNRES ---
Progress Note Date Seen: Sep 26, 2025 Resident Creating Document: JUANA HUDSON RESIDENT Has the PT tested + for MRSA If YES, has PT been informed?: No Medical Necessity Reason Pt with a Central, PICC or Fol: Yes The following are medically ne: Central Line, Sams Catheter Subjective Review of Systems The patient is a 40-year-old female with past medical history of anxiety, UTIs, and kidney stones who presented to [facility] ED for evaluation of cardiac arrest. As reported by EMS/family, patient had cardiac arrest, was asystole 1238 a.m., CPR initiated by family. Patient was initially anxious but was not having any complaints like chest pain or shortness of breath. EMS were on the scene within 5 minutes, CPR continued, patient was given IV fluid, epinephrine x2, became VFib so patient was shocked at 100 joules, Narcan given, became asystole again upon arrival at ER at 0108 hours, blood sugar upon arrival was 43, ROSC obtained at 0112 a.m. Family also reports that patient was depressed for the past 5 years, she has been staying in bed with decreased oral intake, had a fall injury in April resulting in arm and hip fracture. They denied any other significant past medical history. Patient was seen and evaluated in the ED, laboratory data shows WBC 8.8, hemoglobin 6.4, hematocrit 25.0, platelets 260, sodium 151, potassium 6.3, BUN 29, creatinine 2.52, GFR 24, glucose 146, anion gap 28.001, calcium 7.9, lactic acid 21.1 trending down to 15.2, magnesium 4.1, AST 2482, ALT 1430, troponin 2769, BNP 8.48, lipase 31, protein 4.8, albumin 2.7, blood pressure 151/22 trending up to 107/30, heart rate 106, temperature 94.2 F, O2 saturation 97% on ventilator. Head CT showed no acute intracranial abnormality. Patient was started on IV antibiotic regimen vancomycin, please see medication orders section in the computer. On my assessment, patient remains fully intubated, no diaphoresis, no diarrhea, vomiting, no fever. Patient was admitted for further evaluation and medical management. past surgical history; family denies family history: noncontributory past social history: patient lives with the family, denies any smoking, alcohol, drug use 09/06/25: patient seen in ICU. Patient is intubated, on Levophed o, off sedation. Head CT showed diffuse cerebral and cerebellar edema due to anoxic brain injury. neurology following, neurology stated poor prognosis. Kidney functions worsening. Patient's family states before admission patient has seizure-like activity, loss of consciousness which was on and off during the whole day. 09/07/25 40-year-old female in the ICU following cardiopulmonary arrest on 09/04/25, now with severe anoxic brain injury. * Intubated, mechanically ventilated * Off all sedation * No spontaneous movements * No response to pain * No brainstem reflexes: absent corneal, cough, gag, oculocephalic reflexes * Pupils 8 mm, fixed, nonreactive * Family updated todaypoor prognosis discussed, but family chooses FULL CODE and wants everything done Overnight: * Urine output 250 mL total/ 0.15ML/KG/HR * Sams in place, urine [id number] annia * Tube feeds restarted, residuals 15 mL, tolerated * Small bowel movement today * Yamileth-care and sacral wound care performed EEG completed at bedside today for assessment of anoxic injury. Hemodynamics: * On norepinephrine drip for shock Respiratory: * Lungs clear except mild right basal infiltrates Consults: Neurology and Nephrology actively following. 09/08/25 The patient remains critically ill, intubated, mechanically ventilated, and off all sedation since 09/05. Overnight and through today, there continues to be no neurologic improvement. * Mental status unchanged and remains unresponsive/comatose * EEG yesterday inconclusive. Neurology now ordering brain perfusion scan today for brain evaluation * On norepinephrine drip, titrated 8 - 4 mcg/min * CXR today: no major change, persistent bilateral mixed pulmonary opacities and probable small pleural effusions * Oliguria continues * Urine output overnight: 100 mL * Total UO last 24h: 200 mL * Nephrology discontinued Lasix 80 mg BID * Lasix drip started * IR consulted for tunneled dialysis catheter placed today * Plan for hemodialysis/FIRE EXTINGUISHER REPAIRER likely tomorrow Patient remains in critical multiorgan dysfunction with severe irreversible anoxic brain injury, worsening renal failure requiring FIRE EXTINGUISHER REPAIRER preparation, hemodynamic instability requiring vasopressors, and persistent respiratory failure on the ventilator. No neurologic recovery. Full code per family request. 09/09/25 The patient remains critically ill, intubated, mechanically ventilated, and off all sedation since 09/05. Overnight and through today, there continues to be no neurologic improvement. * Mental status unchanged and remains unresponsive/comatose * EEG yesterday inconclusive . Neurology now ordering brain perfusion scan today for brain evaluation * Oliguria continues * IR consulted tunneled dialysis catheter today * Plan for hemodialysis/FIRE EXTINGUISHER REPAIRER likely tomorrow, patient developed b/l upper extremity rash near the right elbow and left antecubital fossa. Patient remains in critical multiorgan dysfunction with severe irreversible anoxic brain injury, worsening renal failure requiring FIRE EXTINGUISHER REPAIRER preparation, hemodynamic instability requiring vasopressors, and persistent respiratory failure on the ventilator. No neurologic recovery.Full code per family request. 09/10/25 he patient continues to remain critically ill, unresponsive, mechanically ventilated, off all sedation, with severe anoxic brain injury and no signs of neurologic recovery. Family continues to request FULL CODE and continuation of all aggressive medical care. * Urine output: 0.16 mL/kg/hr (severely oliguric) * Yesterday: Hemodialysis with 700 mL ultrafiltration * Today: Plan for 11.5 L ultrafiltration * Tunneled right IJ permacath placed 09/09 * Lasix drip discontinued * Creatinine 5.9 (improving from 7.58) * Iron studies: * Iron 11 (low),TIBC 204 (low),Saturation 5.4% (severely low),Ferritin 132 * EEG: Severe diffuse cerebral dysfunction consistent with severe hypoxic metabolic encephalopathy * Poor prognosis confirmed by neurology * Brain perfusion nuclear scan scheduled today/tomorrow for brain evaluation * Diffuse purpuric rash spreading over upper extremities and lower extremities * Ecchymosis + petechiae + non-blanching lesions * Rash progression after Unasyn possible beta-lactam hypersensitivity * Unasyn discontinued today * Doxycycline started 09/11/25 The patient was examined at bedside this morning. She remains critically ill, mechanically ventilated, unresponsive, and off all sedation. Today's major update is the nuclear brain perfusion scan showing complete absence of intracranial perfusion with hot-nose sign, radiologically consistent with BRAIN , pending final neurologic confirmation. Family was updated about the extremely poor prognosis; however, they insist on FULL CODE and full aggressive care. * When repositioned, HR drops into 30s returned to baseline after stabilization * SpO2: 98% on FiO2 30% * No fever * Urine output: 0.05 mL/kg/hr (severe oliguria) * HD yesterday removed 1.5 L UF * HD planned again tomorrow 09/12/25 The patient was evaluated at bedside today. She remains intubated, mechanically ventilated, and entirely unresponsive with no sedation on board. Neurology officially confirmed BRAIN today based on: * Absent brainstem reflexes * No spontaneous respiration * Nuclear medicine brain perfusion scan showing complete absence of intracranial perfusion * Clinical brain examination performed and documented This was explained thoroughly to the family. Despite clear communication, the family continues to request FULL CODE status and all aggressive measures, including long-term life support and LTAC placement. A social work assistant/Case Management consult has been placed for LTAC disposition per family request. 09/13/2025 The patient was evaluated today in the ICU. She remains intubated, mechanically ventilated, on Levophed, and unresponsive with no sedation. She is afebrile, normocardic, and with MAP maintained on pressors. Labs today showed drop in Hb to 6.9, for which 1 unit of PRBC was transfused. Creatinine and BUN continue to increase, for which she was dialyzed today. Stool sample were also to evaluate any possible bleeding. Brain has been declared by neurology, family wishes for her to remain FULL CODE at this time. Per Surgical Lead, the patient does not qualify for LTAC placement at this time. We will continue to monitor. 09/14/25 The patient was evaluated at bedside today. She remains intubated and mechanically ventilated, without sedation, unresponsive, and with previously confirmed brain (absent brain perfusion, absent brainstem reflexes, nuclear perfusion scan positive for brain ). She continues to exhibit no neurologic function. Family met at bedside today. The irreversible prognosis and confirmed brain status were reviewed again. Family is currently discussing goals of care but for now insists the patient remain FULL CODE with continued aggressive care, including ongoing mechanical ventilation and dialysis as needed. Overnight Interval Events Hemoglobin dropped to 6.6 1 unit PRBC transfused post-transfusion Hgb 8.7 Dialysis removed 2 L Rash continues to improve No major ventilatory changes Hemodynamics fluctuating but stable with vasopressors 09/15/25 The patient was evaluated at bedside today. She remains intubated, mechanically ventilated, unresponsive without sedation. Neurologically, she continues to exhibit no cerebral or brainstem activity, consistent with previously documented brain on nuclear medicine perfusion study. Important new finding today: Despite clinical brain , the patient demonstrates spinal reflex activity, including: * Muscle twitching in upper extremities * Brief fast fasciculatory movements upon touch * Reflexive limb motion during turning and repositioning These findings are consistent with spinal reflex arcs, not cortical activity, and do not contradict brain physiology. Family has not yet decided regarding withdrawal of care and continues to insist on full aggressive measures. A second neurologist is scheduled for repeat confirmatory brain- exam today. Hemodialysis ongoing, with UF goal 1 L. Rash that developed after Unasyn is improving.Thrombocytopenia worsened (platelets 23,000). Hemoglobin dropped again. 09/16/25 The patient was evaluated at bedside today. She remains intubated, mechanically ventilated, and completely unresponsive without sedation. Her neurologic status continues to show no meaningful clinical neurologic function, however spinal reflex activity (muscle twitching on touch and during repositioning) persists, consistent with spinal cordmediated reflexes, not brain activity. A second neurologist completed a full clinical examination yesterday including cold caloric testing, corneal reflex, gag, cough reflex, pain response, and oculovestibular function: * Some isolated spinal reflex muscle activity was noted * Neurologist conclusion: * Does NOT meet full clinical criteria for brain because minimal brainstem reflex activity was detected * However, overall exam consistent with irreversible catastrophic anoxic brain injury * Radiologic findings remain consistent with brain pattern * Prognosis: extremely poor, essentially non-survivable anoxic injury Family was updated at bedside. They are considering terminal weaning, but request more time and have decided for now to continue FULL CODE, FULL AGGRESSIVE CARE. Patient continues on mechanical ventilation, dialysis-dependent KIMI,and poor neurologic prognosis. 09/17/25 The patient was evaluated at bedside today. She remains intubated, mechanically ventilated, profoundly unresponsive, and off all sedation. Her neurologic status is unchanged , consistent with irreversible catastrophic anoxic brain injury, although she does not meet full clinical criteria for formal brain (as per second neurologist evaluation). She continues to demonstrate intermittent spinal reflex activity (muscle twitching with touch or turning), consistent with spinal cordmediated reflexes. The family continues to deliberate regarding terminal weaning. They have not yet decided on the timing and request additional time. Until a final decision is made, they request FULL CODE and full aggressive support. No new acute events overnight. Hemodynamics remain supported with norepinephrine drip, titrated to maintain SPP > 90 mmHg per updated neuro-critical care plan. The patient is scheduled for hemodialysis today, with UF per nephrology recommendations. No other major changes in clinical condition. 09/18/25 The patient underwent hemodialysis yesterday, with 1.9 liters removed, and tolerated the procedure without acute complications. She remains on norepinephrine (LEVOPHED) infusion 58 mcg/min with blood pressures fluctuating between 116/65 and 90/57 mmHg. Repeat chest X-ray today shows increased interstitial prominence, raising concern for mild pulmonary congestion vs early interstitial edema. Most importantly, after multiple family meetings and extensive discussion with neurology and , the family has decided on terminal weaning tomorrow at 11:00 AM. Full supportive measures and full code status will be continued until the time of terminal weaning. 09/19/25: Patient seen and examined at bedside, had a long family discussion today, patient who is her POA was absent due to work, patient's family was determined and willing after her father coming from [place], 09/20/25 The patient underwent hemodialysis yesterday (09/19/25) with 1.0 L ultrafiltration removed, resulting in improvement in BUN (48 improved), creatinine (3.49 from 4.49), and potassium correction (5.4 - 4.2). She continues on norepinephrine (Levo) at 4 mcg/min for blood pressure support. No acute distress noted. Family meeting conducted today the patients family wishes to proceed with terminal weaning next week once the patients father arrives from [place]. Until then, they request continuation of full aggressive care with full code status. Doxycycline discontinued today as the full antibiotic course has been completed. No new overnight events. 09/21/25 Family states they are still waiting for the patients father to arrive from [place] before deciding on terminal weaning with comfort-focused care. Until then, they request continuation of full code and full aggressive management. Todays labs show worsening azotemia (BUN 64, Cr 4.41), hypernatremia (Na 147) likely from insensible losses and decreased free water intake, anemia with Hgb 8.4, thrombocytosis (platelets 566K), and ABG showing respiratory alkalosis with metabolic alkalosis compensation. Hemodialysis is scheduled for tomorrow per nephrology. Loop diuretics resumed. Tube feeding switched to Nepro formula. Free water boluses q4h through G-tube started. PTH level ordered. Respiratory secretions mild. Vent settings changed: respiratory rate decreased from 15 - 14. No acute overnight events. 09/22/25 Family has not yet finalized decision regarding terminal weaning. They request another [id number] meeting today. * On norepinephrine 46 mcg/min, titrated to maintain SPP > 90 and MAP > 65 Hypernatremia: * Sodium remained elevated at [address] at 153 * Tube-feed free water discontinued. * D5W infusion started at 100 mL/hr for controlled serum sodium reduction. * Strict I/O monitoring in place. 09/23/25 Patient was examined at bedside today. She remains unresponsive, intubated, mechanically ventilated, off all sedation, with no purposeful movements. Prior spinal reflex/twitching may still be present but no new neurologic activity is reported. Hemodynamics remain relatively stable on current ICU support. No reported fevers. Oxygenation and ventilation are stable on unchanged ventilator settings. Langston interval changes today: * Na improved to 142 (from 153 previously) * BUN 45, Cr 3.13 (improved from prior higher values) * CXR: Hazy bilateral opacities unchanged from yesterday; consistent with prior pulmonary congestion/infiltrates. Family / Goals of Care: * Family has confirmed they want terminal weaning but have not yet chosen the exact date. * They do NOT want PEG tube or tracheostomy and decline escalation to those procedures. * They want to continue full code and all current ICU-level medical management (including ventilator, pressors, dialysis, nutrition) except PEG and trach, until terminal weaning is performed. No new procedures today. 09/24/25 Family has not reached a final decision regarding terminal weaning and there is no update today regarding timing. They previously expressed intention to proceed with terminal extubation once decision is finalized, and continue FULL CODE status and ongoing life-support until then. 09/25/25: Patient seen and examined at bedside, Family has not reached a final decision regarding terminal weaning and there is no update today , continue full code status for now. No cough or gag reflex, patient has some decorticate movement. Patient has poor likelihood meaningful recovery, high likelihood demise. 09/26/25: Patient seen and examined at bedside, Family has not reached a final decision regarding terminal weaning and there is no update today , continue full code status for now. No cough or gag reflex, patient has some decorticate movement. Patient has poor likelihood meaningful recovery, high likelihood demise. Objective vital signs Vital Sign Date Time Temp Pulse Resp B/P (MAP) Pulse Ox O2 Delivery O2 Flow Rate FiO2 09/26/25 10:30 107 15 180/84 (116) 92 09/26/25 10:00 Mechanical Ventilator+ 30 30 09/26/25 08:00 97.7 97.7 Total Intake and Output 09/25/25 09/25/25 09/26/25 15:00 23:00 07:00 Intake Total 800 ml 1212 ml 1184 ml Output Total 1850 ml 2150 ml Balance 800 ml -638 ml -966 ml medications Current Medications Medications Dose Ordered Sig/Ese Route Start Time Stop Time Status Last Admin Dose Admin Diagnostic Test (Pha) 1 strip ACHS 09/04/25 07:00 09/26/25 10:43 1 STRIP Insulin Human Regular ACHS SC 09/04/25 07:00 09/26/25 06:26 3 UNITS Dextrose 50 ml UD PRN IV 09/04/25 05:15 Pantoprazole Sodium 40 mg DAILY IV 09/06/25 10:00 09/26/25 10:42 40 MG Artificial Tears 1 drop Q4HP PRN EACHEYE 09/08/25 18:00 09/15/25 02:47 1 DROP Multi-Ingredient Ointment 1 applic DAILY TOP 09/10/25 10:00 09/26/25 10:00 1 APPLIC Norepinephrine Bitartrate 250 ml @ 3.75 mls/hr Q24H IV 09/15/25 08:45 09/26/25 10:06 35.625 MLS/HR Zirconium Oxide 10 gm BID PO 09/19/25 22:00 09/26/25 21:59 09/20/25 10:00 10 GM Enteral Nutritional Formula 1,000 ml 45ML/HR GT 09/21/25 19:30 09/26/25 04:29 1,000 ML Albumin Human 100 ml @ 100 mls/hr PRN PRN IV 09/22/25 05:45 09/24/25 16:49 100 MLS/HR Bumetanide 1 mg DAILY IV 09/27/25 10:00 Examination General: Unresponsive, ventilator-dependent. Neuro: No spontaneous movement. No corneal reflexes. Pupils fixed. Spinal reflex movements present (post-anoxic). Respiratory: Mechanically ventilated; breath sounds diminished, coarse bilaterally. CV: Sinus rhythm on monitor; pulses faint but present; norepinephrine-dependent. GI: Abdomen soft, nondistended, tube feeds via OG. : Sams catheter draining clear yellow urine. Extremities: Warm, 1+ edema, no mottling. Skin: Sacral area dry. Diffuse rash regressing. laboratory and microbiology Laboratory Tests 09/26/25 03:07 Test 09/26/25 03:07 Range/Units Serum Glucose 179 H 74-106 mg/dL Microbiology Date/Time Source Procedure Growth Status 09/04/25 23:21 Urine - Sams Port Urine Culture - Final Complete 09/04/25 10:00 Nose MRSA Screen - Final Complete 09/04/25 04:22 Sputum Expectorated Sputum Gram Stain - Final Complete 09/04/25 04:22 Respiratory Culture - Final Staphylococcus aureus Complete 09/04/25 01:40 Blood Blood Culture - Final NO GROWTH AFTER 5 DAYS OF INCUBATION. Complete Problem List/Assessment/Plan Problem List/Assessment/Plan Neurology #Catastrophic, irreversible, severe anoxic brain injury; extremely poor prognosis Metabolic encephalopathy (secondary to anoxic injury) * Imaging consistent with brain * Clinical exam does NOT meet full brain- criteria (minimal brainstem reflex activity) * Spinal reflexes present * Prognosis: terminal # History of anxiety # Questionable Seizure like activity -Neurology on board - Neurology stated poor prognosis * Continue neuro checks Q1H * Maintain normothermia * Avoid hypotension/hypoxia * Nuclear brain perfusion scan consistent with brain * EEG: Severe diffuse cerebral dysfunction consistent with severe hypoxic metabolic encephalopathy For now full code. * Family fully understands prognosis and has chosen comfort-focused withdrawal tomorrow at 11 AM * Second neurologist exam does not meet brain criteria but poor prognosis, family updated * Maintain current ventilatory support Cardiology #Postcardiac arrest state (VF arrest - ROSC) #Mixed cardiogenic + septic shock on norepinephrine # heart failure with reduced ejection fraction likely post cardiac arrest # Dyslipidemia # Non ST-elevation myocardial infarction likely type 2 status post cardiac arrest, type 1 not ruled out -Echo : Conclusion MODERATELY DILATED RV AND IS HYPOKINETIC DYSKINESIS OF IVS RVSP IS 40 MM OF HG AND IS HIGH STUDY CONFIRM RV FAILURE GLOBAL LV HYPOKINESIS LV EF IS 40% AND IS REDUCED NORMAL VALVES NO EFFUSION Maintain SPP (Systolic Perfusion Pressure) > 90 mmHg at all times. * Titrate norepinephrine (LEVOPHED) drip to maintain SPP > 90 mmHg. * Monitor for multi-organ shock progression.* Avoid hypotension to preserve brain perfusion * Cardiology involved * Daily EKG * Trend troponins Given anoxic brain injury, the patient is not a candidate for invasive cardiac work-up as per cardiology continue conservative medical management. * Bradycardia episodes with repositioning move gently Respiratory #Acute hypoxic respiratory failure requiring mechanical ventilation * AC/VC: RR 15, TV 450, PEEP 5, FiO2 30% * VAP bundle * Daily CXR * Oral care Q4H * SBT contraindicated Infectious Disease #MSSA / possible aspiration pneumonia * STOPPED Unasyn today due to allergic rash * continue doxycycline * Continue to monitor rash progression * Monitor sputum, blood, urine cultures * COVID/Flu negative * WBC (mild improvement) Hematology Microcytic anemia # severe anemia requiring blood transfusion -2 unit of PRBC transfused Started on IV IRON # coagulopathy likely due to sepsis Monitor Thrombocytopenia (Plt 124), resolved * * Hgb stable at 7.5 , Discontinued Heparin, transfuse only if <7 * Platelets normal * DVT prophylaxis: Heparin held due to anemia * Use SCDs Renal * KIMI stage 3 on solitary kidney *Dialysis-dependent renal failure * Continue daily evaluation for kidney replacement therapy. * Avoid nephrotoxins * Daily BMP, Mg, Phos hyperkalemia Corrected # hypernatremia -initially corrected with a half NS # metabolic acidosis due to sepsis Monitor ABG # respiratory alkalosis Decrease respiratory rate to 12 # hypomagnesemia Monitor Urology # complicated urinary tract infection -on antibiotics # Punctate nonobstructing right renal calculi. Seen on ultrasound # Left nephrectomy. Seen on ultrasound GI Shock liver (AST/ALT markedly elevated) now improving * Continue Nepro tube feeds @ 35 mL/hr * Check residuals Q4H * PPI for ulcer prophylaxis * Monitor stool output Endocrine * Insulin ACHS * Maintain BG [id number] Skin * Stage 1 sacral ulcer * Wound care following * Reposition Q2H * Beta-lactam hypersensitivity improving Ensure no heparin products (including flushes) STOP beta-lactams (done) Start doxycycline (done) Warm compresses to affected areas Reposition Q2H to reduce pressure contribution NO signs of cellulitis (no warmth) Topical emollients (Aquaphor) to reduce skin breakdown Monitor platelets daily OPHTHALMOLOGY * Conjunctival injection, swollen eyelids * Start Lacri-lube eye drops Q6H LINES / TUBES * ETT (09/04) * OG tube * Left femoral central line (09/04) * Sams catheter Right IJ tunneled dialysis catheter (09/09) * Daily line necessity review PROPHYLAXIS * DVT: SCDs only * GI: Pantoprazole * Ulcer: Q2H turns * VAP: oral care, CHG, HOB elevation SOCIAL WORK / FAMILY SUPPORT * Family updated extensively today Family meeting held * TERMINAL WEANING SCHEDULED FOR 11:00 AM TOMORROW * Request continuation of FULL CODE & full aggressive care for now * Social work available for support No cough or gag reflex, patient has some decorticate movement. Patient has poor likelihood meaningful recovery, high likelihood demise. CODE STATUS FULL CODE CRITICAL CARE TIME 43 minutes of critical care time spent today, excluding procedure time. . DISCUSSION WITH ATTENDING Case reviewed in detail with attending physician Dr Ruiz. Management plan jointly agreed upon. including the clinical presentation, diagnostic workup, and comprehensive management plan. The patient's family was present for the discussion and demonstrated understanding of his condition and the proposed plan. Plan discussed with: Other (RN) My Orders My Orders Orders - JUANA HUDSON RESIDENT Procedure Category Date Status Time Abg W/ Co-Ox RT 09/26/25 Logged 04:00 Chest Xray 1 View XY 09/26/25 Resulted 04:00 Dietary Evaluation Review Comments: 1. nepro 35/hr providing 68g pro, 1487kcal, 611ml free water, meeting 107% energy needs, 80% protein needs 2. Increase amount of Protein support for wound healing when/if pt's kidney function impvoes. F/U and reassess when pt is off vent and PRN. Expected Outcomes/Goals: Adequate nutrition support for being on mechanical ventilation CC Plasma Assessment Blood Product Administration S: 06:05 JUANA HUDSON RESIDENT Sep 26, 2025 11:34
--- NOTE | 2025-09-26 14:35 | DVHPN2 ---
Progress Note - Dictate Date Seen: Sep 26, 2025 Has the PT tested + for MRSA If YES, has PT been informed?: No Medical Necessity Reason Pt with a Central, PICC or Fol: Yes The following are medically ne: Central Line, Sams Catheter Subjective Patient was seen and evaluated in follow up in the ICU. Patient is intubated on ventilator. FiO2 30%. Patient underwent HD with 2L removed. Patient has some decorticate movement. WBC 12.7, HGB 8.5, HCT 27.4, CL 97, BUN 51, DRAWING TRACER 3.58, CA 12.1, AST 296, ALT 129. Chest x-ray shows mild interval progression in bibasilar pulmonary airspace disease and bilateral pleural effusions. vital signs Vital Sign Date Time Temp Pulse Resp B/P (MAP) Pulse Ox O2 Delivery O2 Flow Rate FiO2 09/26/25 11:27 100 14 105/70 (82) 96 30 09/26/25 10:00 Mechanical Ventilator+ 09/26/25 08:00 97.7 97.7 Total Intake and Output 09/25/25 09/25/25 09/26/25 14:59 22:59 06:59 Intake Total 700 ml 1212 ml 1184 ml Output Total 1850 ml 2150 ml Balance 700 ml -638 ml -966 ml medications Current Medications Medications Dose Ordered Sig/Ese Route Start Time Stop Time Status Last Admin Dose Admin Diagnostic Test (Pha) 1 strip ACHS 09/04/25 07:00 09/26/25 10:43 1 STRIP Insulin Human Regular ACHS SC 09/04/25 07:00 09/26/25 06:26 3 UNITS Dextrose 50 ml UD PRN IV 09/04/25 05:15 Pantoprazole Sodium 40 mg DAILY IV 09/06/25 10:00 09/26/25 10:42 40 MG Artificial Tears 1 drop Q4HP PRN EACHEYE 09/08/25 18:00 09/15/25 02:47 1 DROP Multi-Ingredient Ointment 1 applic DAILY TOP 09/10/25 10:00 09/26/25 10:00 1 APPLIC Norepinephrine Bitartrate 250 ml @ 3.75 mls/hr Q24H IV 09/15/25 08:45 09/26/25 10:06 35.625 MLS/HR Zirconium Oxide 10 gm BID PO 09/19/25 22:00 09/26/25 21:59 09/20/25 10:00 10 GM Enteral Nutritional Formula 1,000 ml 45ML/HR GT 09/21/25 19:30 09/26/25 04:29 1,000 ML Albumin Human 100 ml @ 100 mls/hr PRN PRN IV 09/22/25 05:45 09/24/25 16:49 100 MLS/HR Bumetanide 1 mg DAILY IV 09/27/25 10:00 objective GENERAL: Ill appearing, intubated on ventilator. EYES: PERRL, EOMI. Anicteric. HENT: Moist mucous membranes. LUNGS: Decreased breath sounds. CARDIOVASCULAR: Regular rate and rhythm. ABDOMEN: Soft, nontender and nondistended. EXTREMITIES: No edema. SKIN: Warm, dry. laboratory and microbiology Laboratory Tests 09/26/25 03:07 Test 09/26/25 03:07 Range/Units Serum Glucose 179 H 74-106 mg/dL Problem List Cardiopulmonary arrest with ROSC. Ventricular fibrillation arrest with defibrillation at 100J. Non ST-elevation myocardial infarction. Acute anemia status post blood transfusion (-FOBT). Acute hypoxic respiratory failure. Likely KIMI on CKD. Left nephrectomy. Shocked Liver. Dyslipidemia, newly diagnosed. Cerebral and cerebellar edema, anoxic brain injury. ? Suspected PE with RV failure and PAH. Assessment/Plan Continued all current supportive medical care. GI prophylactics. Diuretics with Bumex. Vasopressors for hemodynamic support. Additional plan as per the hospital course. Critical care time of 45 minutes provided to include time spent evaluation of patient at bedside, when appropriate patient/family education for diagnosis, treatment plan, review of pertinent medical information and discussion of care with specialty providers and PCP. Mechanical ventilator parameters, treatment and adjustments have personally been reviewed by me and treatment plan by sugar presser has also been reviewed. Dietary Evaluation Review Comments: 1. nepro 35/hr providing 68g pro, 1487kcal, 611ml free water, meeting 107% energy needs, 80% protein needs 2. Increase amount of Protein support for wound healing when/if pt's kidney function impvoes. F/U and reassess when pt is off vent and PRN. Expected Outcomes/Goals: Adequate nutrition support for being on mechanical ventilation Plan discussed with: Other CC Plasma Assessment Blood Product Administration S: 06:05 RISHI SOARES MD Sep 26, 2025 12:30
--- NOTE | 2025-09-26 20:39 | DVHPN2 ---
Progress Note - Dictate Date Seen: Sep 26, 2025 Has the PT tested + for MRSA If YES, has PT been informed?: No Medical Necessity Reason Pt with a Central, PICC or Fol: Yes The following are medically ne: Central Line, Sams Catheter Subjective Ms. Murillo is a 40 years old female with a history of kidney stone, depression, anxiety, she was brought to the [facility] on 09/04/2025 with a chief complaint of cardio pulmonary arrest I have seen and examined the patient, talked to her nurse. and daughter in the room. No change in her clinical symptoms and physical examination. Her pupils are fixed, no gag reflexes, Rt: 6mm, Lt: 7-8mm She has spontaneous or pain/touch evoked decerebrate posturing Waiting for family to decide code status Levo 17 mcg/min Urinalysis, 09/04/2025: WBC: 37, urine leukocyte esterase: Negative UDS, 09/04/2025: Negative Plasma alcohol, 09/04/2025: <3 ABG, 09/10/2025: Metabolic acidosis WBC/HB/PLT/MCV, 09/04/2025: 8.8/6.4/260/79.8 PT/INR/ABG, 09/04/2025: 70.4/1.73/ Na, 09/04/2025: 151, 148, 140 K, 09/04/2025: 6.3, 4.6, 3.2 BUN/CR, 09/04/2025: 30/2.69 09/12/25: 60 4/5.45 GFR, 09/12/2025: Nine TBI/AST/ALT/AP, 09/04/2025: 0.11/2481/4030/74, 0.01/5737/2100/93, 09/12/25: 0.2/148/180/165 Glucose, 09/04/2025: 146, 294, 503 HGB A1c, 09/04/2025: 5 Lactic acid, 09/04/2025: 21.1, or 15.2 Troponin one high sensitivity, 09/04/2025: 2769, 5664, 7574 TG/HDL/LDL/HDL, 09/04/2025: 186/86/41/25 Extremity venous study, 09/04/2025: NO SONOGRAPHIC EVIDENCE FOR DEEP VENOUS THROMBOSIS IN THE BILATERAL LOWER EXTREMITY VEINS Cerebral flow, 09/10/2025: Findings likely representing brain however clinical correlation is needed. Chest x-ray, 09/12/2025: Probable small bilateral pleural effusions with mild bibasilar atelectatic changes. CT head, 09/04/25: No acute intracranial abnormality (I saw evidence suggestive of early diffuse brain edema) CT head 09/05/25: Findings are consistent with severe diffuse cerebral and cerebellar edema possibly representing anoxic brain injury. vital signs Vital Sign Date Time Temp Pulse Resp B/P (MAP) Pulse Ox O2 Delivery O2 Flow Rate FiO2 09/26/25 20:26 97 14 115/67 (83) 97 30 09/26/25 18:00 Mechanical Ventilator+ 09/26/25 16:00 97.5 97.5 Total Intake and Output 09/25/25 09/25/25 09/26/25 15:00 23:00 07:00 Intake Total 800 ml 1212 ml 1184 ml Output Total 1850 ml 2150 ml Balance 800 ml -638 ml -966 ml medications Current Medications Medications Dose Ordered Sig/Ese Route Start Time Stop Time Status Last Admin Dose Admin Diagnostic Test (Pha) 1 strip ACHS 09/04/25 07:00 09/26/25 17:09 1 STRIP Insulin Human Regular ACHS SC 09/04/25 07:00 09/26/25 06:26 3 UNITS Dextrose 50 ml UD PRN IV 09/04/25 05:15 Pantoprazole Sodium 40 mg DAILY IV 09/06/25 10:00 09/26/25 10:42 40 MG Artificial Tears 1 drop Q4HP PRN EACHEYE 09/08/25 18:00 09/15/25 02:47 1 DROP Multi-Ingredient Ointment 1 applic DAILY TOP 09/10/25 10:00 09/26/25 10:00 1 APPLIC Norepinephrine Bitartrate 250 ml @ 3.75 mls/hr Q24H IV 09/15/25 08:45 09/26/25 16:28 30 MLS/HR Zirconium Oxide 10 gm BID PO 09/19/25 22:00 09/26/25 21:59 09/20/25 10:00 10 GM Enteral Nutritional Formula 1,000 ml 45ML/HR GT 09/21/25 19:30 09/26/25 04:29 1,000 ML Albumin Human 100 ml @ 100 mls/hr PRN PRN IV 09/22/25 05:45 09/24/25 16:49 100 MLS/HR Bumetanide 1 mg DAILY IV 09/27/25 10:00 objective The patient is well-nourished and well-developed with no distress. The patient is intubated MENTAL STATUS: Nonresponsive stroke painful stimuli CRANIAL NERVES: Pupils are equal, round, and fixed. There are no corneal reflexes and no doll's eyes phenomenon. No signs of facial weakness. There are no gagging or coughing reflexes SENSATION: No responses to strong pain stimuli. MOTOR: Normal muscle bulk. No fasciculations. No spontaneous movement. Increased muscle tone in the left upper extremity. See subjective REFLEXES: Deep tendon reflexes are symmetrical. No pathological reflexes. CEREBELLAR/COORDINATION: Deferred GAIT/STATION: deferred. laboratory and microbiology Laboratory Tests 09/26/25 03:07 Test 09/26/25 03:07 Range/Units Serum Glucose 179 H 74-106 mg/dL Problem List Cardiopulmonary arrest Coma/Metabolic/hypoxic encephalopathy Metabolic acidosis Acute respiratory failure Elevated troponin/heart attack Severe anemia Shocked liver Hypernatremia Increased muscle tone in the left arm Decerebrate posturing Assessment/Plan Monitoring Supportive treatment ICU care Follow up labs Stabilize vitals/pressor drip Respiratory support/vent management Oxygen Antibiotics DVT prophylaxis GI prophylaxis More recommendation per clinical course Poor prognosis for meaningful/overall recovery Family to decide code status This medical document was created using an electronic medical record system with [employer] computerized dictation system. Although this document has been carefully reviewed, there may still be some phonetic and typographical errors. These areas are purely typographical due to imperfections of the software programs, and do not reflect any compromise in the patient's medical care. Prognosis poor Dietary Evaluation Review Comments: 1. nepro 35/hr providing 68g pro, 1487kcal, 611ml free water, meeting 107% energy needs, 80% protein needs 2. Increase amount of Protein support for wound healing when/if pt's kidney function impvoes. F/U and reassess when pt is off vent and PRN. Expected Outcomes/Goals: Adequate nutrition support for being on mechanical ventilation Plan discussed with: Spouse, Daughter, Other CC Plasma Assessment Blood Product Administration S: 06:05 ALEXIS DEL ANGEL MD Sep 26, 2025 20:39
[2025-09-26] MEDS: EPOETIN ALFA-EPBX 10,000 UNIT/1ML VIAL SC ONE (21:17)
--- NOTE | 2025-09-26 23:41 | DVHPN2 ---
Subjective DOS: 09/26/2025 Patient seen and examined at bedside. Intubated on mechanical ventilator. Overnight events reviewed. Changes from previous H/P or p: No Changes Eyes: No Pain, No Vision change, No Conjunctivae inflammation, No Eyelid inflammation, No Other, No Redness ENT: No Ear pain, No Ear discharge, No Nose pain, No Nose discharge, No Nose congestion, No Mouth pain, No Mouth swelling, No Throat pain, No Throat swelling, No Other Cardiovascular: No Chest Pain, No Palpitations, No Orthopnea, No Paroxysmal Noc. Dyspnea, No Edema, No Lt Headedness; Other (Cardiac arrest) Respiratory: No Cough, No Dry; Shortness of breath; No SOB with excertion, No Wheezing, No Hemoptysis, No Pleuritic Pain, No Sputum; Other (On ventilator) Gastrointestinal: No Nausea, No Vomiting, No Abdominal Pain, No Diarrhea, No Constipation, No Melena, No Hematochezia, No Other Genitourinary: No Dysuria, No Frequency, No Incontinence, No Hematuria, No Retention; Other (Sams catheter in place) Musculoskeletal: No other, No neck pain, No shoulder pain, No arm pain, No back pain, No hand pain, No leg pain, No foot pain Skin: No Rash, No Lesions, No Jaundice, No Bruising, No Other Objective Vitals Vital Signs Date Time Temp Pulse Resp B/P (MAP) Pulse Ox O2 Delivery O2 Flow Rate FiO2 09/26/25 22:30 98 14 106/63 (77) 97 09/26/25 22:22 30 09/26/25 22:00 Mechanical Ventilator+ 09/26/25 20:00 100.2 100.2 Intake/Output Intake and Output 09/26/25 07:00 Intake Total 3196 ml Output Total 4000 ml Balance -804 ml IV Total 2400 ml Tube Feeding 796 ml Output Urine Total 4000 ml Exam Gen.: Patient lying in bed in medical ICU. Intubated on mechanical ventilator. Head: Normocephalic, atraumatic. Eyes: PERRLA. Ears: Normal external anatomy. Throat: Endotracheal tube and orogastric tube in place. Neck: Supple, trachea midline. Chest: Transmitted breath sounds bilaterally. Decreased air entry bilaterally. No wheezing. Bibasilar crackles. Cardiovascular: Positive S1, positive S2. Regular rate and rhythm. Abdomen: Positive bowel sounds in all 4 quadrants. Soft, nontender, nondistended. : Sams in place. Normal external genitalia. Rectal: Deferred. Skin: Warm, dry. Intact. Extremities: 2+ radial pulses bilaterally. No lower extremity edema. Neuro: Off sedation, unresponsive. Decorticate movements; no cough/gag. Medications Current Medications Medications Dose Ordered Sig/Ese Route Start Time Stop Time Status Last Admin Dose Admin Diagnostic Test (Pha) 1 strip ACHS 09/04/25 07:00 09/26/25 21:11 1 STRIP Insulin Human Regular ACHS SC 09/04/25 07:00 09/26/25 21:24 2 UNITS Dextrose 50 ml UD PRN IV 09/04/25 05:15 Pantoprazole Sodium 40 mg DAILY IV 09/06/25 10:00 09/26/25 10:42 40 MG Artificial Tears 1 drop Q4HP PRN EACHEYE 09/08/25 18:00 09/15/25 02:47 1 DROP Multi-Ingredient Ointment 1 applic DAILY TOP 09/10/25 10:00 09/26/25 10:00 1 APPLIC Norepinephrine Bitartrate 250 ml @ 3.75 mls/hr Q24H IV 09/15/25 08:45 09/26/25 16:28 30 MLS/HR Enteral Nutritional Formula 1,000 ml 45ML/HR GT 09/21/25 19:30 09/26/25 04:29 1,000 ML Albumin Human 100 ml @ 100 mls/hr PRN PRN IV 09/22/25 05:45 09/24/25 16:49 100 MLS/HR Bumetanide 1 mg DAILY IV 09/27/25 10:00 Laboratory Results Laboratory Tests 09/26/25 03:07 Chemistry Test 09/26/25 03:07 Albumin 3.4 g/dL (3.2-4.8) Calcium Level 12.1 mg/dL (8.7-10.4) H Total Protein 7.4 g/dL (5.7-8.2) LFT Test 09/26/25 03:07 Alanine Aminotransferase (ALT) 129 U/L (7-40) H Alkaline Phosphatase 472 U/L (46-116) H Aspartate Amino Transferase (AST) 296 U/L (13-40) H Total Bilirubin 0.2 mg/dL (0.2-1.0) Urinalysis Test 09/04/25 03:14 09/04/25 13:46 Urine Color Light-orange (Yellow) Urine Clarity Turbid (Clear) H Urine pH 5.5 (5.0-9.0) Urine Specific Crowley 1.015 (1.001-1.035) Urine Protein 2+ (Negative) H Urine Ketones 1+ (Negative) H Urine Blood 3+ /uL (Negative) H Urine Nitrite Negative (Negative) Urine Bilirubin Negative (Negative) Urine Urobilinogen Normal mg/dL (Negative) Urine Leukocyte Esterase Negative /uL (Negative) Urine RBC 281 /hpf (0 - 4) Urine Microscopic WBC 37 /HPF (0-5) H Urine Squamous Epithelial Cells Few /hpf (<5) Urine Calcium Oxalate Crystals Few (None Seen) Urine Bacteria Few /hpf (None Seen) H Urine Hyaline Casts Many /lpf (0 - 2) Urine Mucus Few (None Seen) Urine Glucose Trace mg/dL (Normal) Urine Creatinine 85.45 mg/dL (30.0-125.0) Urine Protein/Creatinine Ratio 5.39 Urine Sodium 52 mmol/L (40-220) Urine Total Protein 460.9 mg/dL (1-14) H Blood Gas Results Test 09/26/25 06:39 Arterial Blood pH 7.313 (7.350-7.450) FiO2 % 30.0 Microbiology Microbiology Date/Time Source Procedure Growth Status 09/04/25 23:21 Urine - Sams Port Urine Culture - Final Complete 09/04/25 10:00 Nose MRSA Screen - Final Complete 09/04/25 04:22 Sputum Expectorated Sputum Gram Stain - Final Complete 09/04/25 04:22 Respiratory Culture - Final Staphylococcus aureus Complete 09/04/25 01:40 Blood Blood Culture - Final NO GROWTH AFTER 5 DAYS OF INCUBATION. Complete Assessment/Plan Assessment/Plan Impression: Acute hypoxic respiratory failure On mechanical ventilator Metabolic encephalopathy 2/2 anoxic brain injury S/p cardiac arrest (VF arrest - ROSC) Heart failure with reduced ejection fraction Non ST-elevation myocardial infarction MSSA/aspiration pneumonia Severe anemia requiring blood transfusion Shock liver KIMI stage 3 on solitary kidney Dialysis-dependent renal failure Complicated urinary tract infection Stage 1 sacral ulcer Events: Remains on vent support On AC mode; RR 14, VT 400, PEEP 5, FiO2 30% ABG notable for acidemia; pCO2 of 61.3 CXR shows Mild interval progression in bibasilar pulmonary airspace disease and bilateral pleural effusions. Devices in place. Remains off sedation Pressors for hemodynamic support On Levophed 19 mcg/min Titrate to keep mean arterial pressure greater than 65 mmHg. Hemodialysis per Nephrology -HD yesterday. Tube feeds for nutritional support Anemia - hemoglobin of 8.5 g/dL Patient with decorticate movements; no cough/gag. Neurology second opinion noted. Patient has poor likelihood of meaningful recovery. High likelihood of demise. Labs and imaging reviewed. Rest of plan as noted below. Plan: s/p intubation on mechanical ventilator. On AC mode; RR 14, VT 400, PEEP 5, FiO2 30% Titrate FIO2 to keep O2 saturation above 90%. VAP bundle. Supportive care Poor prognosis Awaiting family decision on goals of care. Nuclear brain perfusion scan consistent with brain EEG: Severe diffuse cerebral dysfunction consistent with severe hypoxic metabolic encephalopathy Neuro checks Neurology recommendations appreciated Follow up GI recommendations Cardiology recommendations appreciated. Echocardiogram reviewed: MODERATELY DILATED RV AND IS HYPOKINETIC DYSKINESIS OF IVS RVSP 40 MMHG - ELEVATED STUDY CONFIRMS RV FAILURE GLOBAL LV HYPOKINESIS LVEF IS 40% AND IS REDUCED Pressors for hemodynamic support Titrate to keep mean arterial pressure greater than 65 mmHg. Accu-Cheks, ISS PRN. HD per Nephrology Monitor renal function Monitor electrolytes. Supplement as necessary. Monitor ins and outs. Maintain euvolemia. Wound care. GI prophylaxis. DVT prophylaxis. Prognosis: Poor given patient's multiple co-morbidities. Condition: Critical Rest of plan per hospitalist and other consultants. A total of 35 minutes of critical care time was spent reviewing the patient record, examining the patient, making a diagnostic and therapeutic plan, discussing this plan with the medical personnel, following up on diagnostic studies and following the patient for clinical stability excluding any and all procedures. At least 50% of this time was spent in direct, [id number] contact. Thank you, Dr. Antoine, for allowing me to participate in this patient's care. Further recommendations will depend on the patient's clinical course. Please do not hesitate to contact me if you have any questions or concerns. This medical document was created using an electronic medical record system with [employer] dictation system. Although these documentations are being carefully reviewed, there may still be some phonetic and typographical changes. The errors are purely typographical, due to imperfection on the software program, and do not reflect any compromise in the patient's medical care. Plan discussed with: Other (YANE Sands) Visit Coding Pulmonary Billing Provider: MAXX COOPER MD Date of Service if different f: Sep 26, 2025 Common Visit Codes: 89203-[id number] INP/OBS CARE(HIGH), [id number] CARE 30-74 MIN MAXX COOPER MD Sep 26, 2025 23:41
[2025-09-27] VITALS (107 sets, daily range): BP systolic 84–151; BP diastolic 47–87; PULSE 81–99; RESP 0–17; TEMP 96.5–99.3; O2SAT 88–100
[2025-09-27 03:39] LABS: Hemoglobin 9.0 g/dL (12.2-16.2); Mean Corpuscular Volume 73.6 fL (80.0-100.0)
[2025-09-27 03:42] LABS: Hematocrit 29.8 % (36.0-46.0); Mean Corpuscular Hemoglobin 22.2 pg (28.0-32.0)
[2025-09-27 03:55] LABS: Albumin 3.9 g/dL (3.2-4.8); Anion Gap 13 (5-15); BUN/Creatinine Ratio 14.2 (10.0-20.0); Carbon Dioxide 30 mmol/L (20-31); Chloride 101 mmol/L (98-107); Potassium 4.1 mmol/L (3.5-5.1); Sodium 144 mmol/L (136-145); Total Protein 8.2 g/dL (5.7-8.2)
[2025-09-27 05:01] LABS: Alanine Aminotransferase 217 U/L (7-40); Alkaline Phosphatase 476 U/L (46-116); Bilirubin, Total 0.2 mg/dL (0.2-1.0); Blood Urea Nitrogen 42 mg/dL (9-23); Glucose 135 mg/dL (74-106)
[2025-09-27 05:03] LABS: Calcium 13.0 mg/dL (8.7-10.4)
--- NOTE | 2025-09-27 06:07 | DVH ---
MEDICAL RECORDS NUMBER: [id number] PROCEDURE: XY CHEST XRAY 1 VIEW DATE: 09/27/2025 05:07 AM HISTORY: Intubated Views:1 COMPARISON: XY CHEST XRAY 1 VIEW on DOS: 09/26/25, XY CHEST PORTABLE on DOS: 09/25/25, XY CHEST XRAY 1 VIEW on DOS: 09/25/25, XY CHEST XRAY 1 VIEW on DOS: 09/24/25, XY CHEST PORTABLE on DOS: 09/23/25 FINDINGS/IMPRESSION: Lungs: Mild infiltrates are suspected in the right mid and lower lung. No large consolidation is seen. Mediastinum: Mediastinal structures appear unremarkable.A endotracheal tube is seen with the tip projecting approximately 2 cm above the osmel.NG tube is seen with the tip projecting over the expected position of the stomach. Right central line is seen with the tip projecting over the atriocaval junction Skeletal: The skeletal structures appear unremarkable.
[2025-09-27 07:22] LABS: Magnesium 2.5 mg/dL (1.6-2.6)
[2025-09-27 07:32] LABS: Anisocytosis Slight; Ovalocytes FEW; Total Cells Counted 100.0 (100)
[2025-09-27 08:23] LABS: Base Excess 2.3 mmol/L (-2.0-3.0)
[2025-09-27] MEDS: BUMETANIDE 1mg/4ml VIAL (0.25mg/ml) IV SCH (08:43)
--- NOTE | 2025-09-27 12:30 | DVHPN2 ---
Progress Note Date Seen: Sep 27, 2025 Has the PT tested + for MRSA If YES, has PT been informed?: No Medical Necessity Reason Pt with a Central, PICC or Fol: Yes The following are medically ne: Central Line, Sams Catheter Subjective Review of Systems: RESPIRATORY:Abnormal Other Systems: Patient seen and examined by myself today in follow-up Objective vital signs Vital Sign Date Time Temp Pulse Resp B/P (MAP) Pulse Ox O2 Delivery O2 Flow Rate FiO2 09/27/25 10:45 82 14 103/69 (80) 99 09/27/25 10:30 30 09/27/25 10:00 Mechanical Ventilator+ 09/27/25 08:00 96.5 96.5 Total Intake and Output 09/26/25 09/26/25 09/27/25 15:00 23:00 07:00 Intake Total 300 ml 410 ml 482 ml Output Total 200 ml 850 ml Balance 300 ml 210 ml -368 ml medications Current Medications Medications Dose Ordered Sig/Ese Route Start Time Stop Time Status Last Admin Dose Admin Diagnostic Test (Pha) 1 strip ACHS 09/04/25 07:00 09/27/25 06:05 1 STRIP Insulin Human Regular ACHS SC 09/04/25 07:00 09/27/25 06:07 2 UNITS Dextrose 50 ml UD PRN IV 09/04/25 05:15 Pantoprazole Sodium 40 mg DAILY IV 09/06/25 10:00 09/27/25 08:43 40 MG Artificial Tears 1 drop Q4HP PRN EACHEYE 09/08/25 18:00 09/15/25 02:47 1 DROP Multi-Ingredient Ointment 1 applic DAILY TOP 09/10/25 10:00 09/27/25 08:44 1 APPLIC Norepinephrine Bitartrate 250 ml @ 3.75 mls/hr Q24H IV 09/15/25 08:45 09/27/25 08:44 22.5 MLS/HR Enteral Nutritional Formula 1,000 ml 45ML/HR GT 09/21/25 19:30 09/26/25 04:29 1,000 ML Albumin Human 100 ml @ 100 mls/hr PRN PRN IV 09/22/25 05:45 09/24/25 16:49 100 MLS/HR Bumetanide 1 mg DAILY IV 09/27/25 10:00 09/27/25 08:43 1 MG Examination: LUNGS:Normal, CVS:Normal, MSK:Normal laboratory and microbiology Laboratory Tests 09/27/25 03:03 Test 09/27/25 03:03 Range/Units Serum Glucose 135 H 74-106 mg/dL Microbiology Date/Time Source Procedure Growth Status 09/04/25 23:21 Urine - Sams Port Urine Culture - Final Complete 09/04/25 10:00 Nose MRSA Screen - Final Complete 09/04/25 04:22 Sputum Expectorated Sputum Gram Stain - Final Complete 09/04/25 04:22 Respiratory Culture - Final Staphylococcus aureus Complete 09/04/25 01:40 Blood Blood Culture - Final NO GROWTH AFTER 5 DAYS OF INCUBATION. Complete Problem List/Assessment/Plan Problem List/Assessment/Plan KIMI, from ATN due to cardiac arrest requiring hemodialysis Hypernatremia resolved Acute respiratory failure, intubated on ventilator Status post cardiac arrest Anoxic encephalopathy Cardiogenic/septic shock NSTEMI Hypercalcemia likely due to immobilization Plan/recommendation: NEXT HEMODIALYSIS 09/29 Epogen 64387 subQ 3 times weekly Hyperkalemia resolved Epogen 72805 subQ 3 times weekly Strict I&Os, loop diuretic resumed nepro tube feeding Check phos , pth and 25 hydroxyvitamin D level Monitor urinary output ,improved Vasopressor per primary team Avoid nephrotoxic medication Ct head--anoxic encephalopathy EEG/perfusion scan showed anoxic brain injury, defer to neurology and primary for long term care and management Poor prognosis Plan discussed with: Other (Nurse) Dietary Evaluation Review Comments: 1. nepro 35/hr providing 68g pro, 1487kcal, 611ml free water, meeting 107% energy needs, 80% protein needs 2. Increase amount of Protein support for wound healing when/if pt's kidney function impvoes. F/U and reassess when pt is off vent and PRN. Expected Outcomes/Goals: Adequate nutrition support for being on mechanical ventilation CC Plasma Assessment Blood Product Administration S: 06:05 CARISSA BARRERA MD Sep 27, 2025 12:30
--- NOTE | 2025-09-27 13:25 | DVHPNRES ---
Progress Note Date Seen: Sep 27, 2025 Resident Creating Document: LAURE NAGY RESIDENT Has the PT tested + for MRSA If YES, has PT been informed?: No Medical Necessity Reason Pt with a Central, PICC or Fol: Yes The following are medically ne: Central Line, Sams Catheter Subjective Review of Systems The patient is a 40-year-old female with past medical history of anxiety, UTIs, and kidney stones who presented to [facility] ED for evaluation of cardiac arrest. As reported by EMS/family, patient had cardiac arrest, was asystole 1238 a.m., CPR initiated by family. Patient was initially anxious but was not having any complaints like chest pain or shortness of breath. EMS were on the scene within 5 minutes, CPR continued, patient was given IV fluid, epinephrine x2, became VFib so patient was shocked at 100 joules, Narcan given, became asystole again upon arrival at ER at 0108 hours, blood sugar upon arrival was 43, ROSC obtained at 0112 a.m. Family also reports that patient was depressed for the past 5 years, she has been staying in bed with decreased oral intake, had a fall injury in April resulting in arm and hip fracture. They denied any other significant past medical history. Patient was seen and evaluated in the ED, laboratory data shows WBC 8.8, hemoglobin 6.4, hematocrit 25.0, platelets 260, sodium 151, potassium 6.3, BUN 29, creatinine 2.52, GFR 24, glucose 146, anion gap 28.001, calcium 7.9, lactic acid 21.1 trending down to 15.2, magnesium 4.1, AST 2482, ALT 1430, troponin 2769, BNP 8.48, lipase 31, protein 4.8, albumin 2.7, blood pressure 151/22 trending up to 107/30, heart rate 106, temperature 94.2 F, O2 saturation 97% on ventilator. Head CT showed no acute intracranial abnormality. Patient was started on IV antibiotic regimen vancomycin, please see medication orders section in the computer. On my assessment, patient remains fully intubated, no diaphoresis, no diarrhea, vomiting, no fever. Patient was admitted for further evaluation and medical management. past surgical history; family denies family history: noncontributory past social history: patient lives with the family, denies any smoking, alcohol, drug use 09/24/25 Family has not reached a final decision regarding terminal weaning and there is no update today regarding timing. They previously expressed intention to proceed with terminal extubation once decision is finalized, and continue FULL CODE status and ongoing life-support until then. 09/25/25: Patient seen and examined at bedside, Family has not reached a final decision regarding terminal weaning and there is no update today , continue full code status for now. No cough or gag reflex, patient has some decorticate movement. Patient has poor likelihood meaningful recovery, high likelihood demise. 09/26/25: Patient seen and examined at bedside, Family has not reached a final decision regarding terminal weaning and there is no update today , continue full code status for now. No cough or gag reflex, patient has some decorticate movement. Patient has poor likelihood meaningful recovery, high likelihood demise. 09/27/2025: Patient seen in the ICU. She is intubated, not on any sedation, mechanically ventilated, on Levophed. Per nurse, calcium was 13 this morning for which dose of Bumex was given. Labs were significant for elevated WBCs, renal function was mildly improved she is pending dialysis tomorrow, LFTs continue to worsen. Per nurse, greenish-yellow sputum found in the ET tube, sputum culture has been ordered. Family has not reached a final decision regarding terminal weaning at this time. Objective vital signs Vital Sign Date Time Temp Pulse Resp B/P (MAP) Pulse Ox O2 Delivery O2 Flow Rate FiO2 09/27/25 12:45 88 16 92/62 (72) 98 09/27/25 12:00 30 09/27/25 12:00 Mechanical Ventilator+ 09/27/25 12:00 97.7 97.7 Total Intake and Output 09/26/25 09/26/25 09/27/25 15:00 23:00 07:00 Intake Total 300 ml 410 ml 482 ml Output Total 200 ml 850 ml Balance 300 ml 210 ml -368 ml medications Current Medications Medications Dose Ordered Sig/Ese Route Start Time Stop Time Status Last Admin Dose Admin Diagnostic Test (Pha) 1 strip ACHS 09/04/25 07:00 09/27/25 06:05 1 STRIP Insulin Human Regular ACHS SC 09/04/25 07:00 09/27/25 06:07 2 UNITS Dextrose 50 ml UD PRN IV 09/04/25 05:15 Pantoprazole Sodium 40 mg DAILY IV 09/06/25 10:00 09/27/25 08:43 40 MG Artificial Tears 1 drop Q4HP PRN EACHEYE 09/08/25 18:00 09/15/25 02:47 1 DROP Multi-Ingredient Ointment 1 applic DAILY TOP 09/10/25 10:00 09/27/25 08:44 1 APPLIC Norepinephrine Bitartrate 250 ml @ 3.75 mls/hr Q24H IV 09/15/25 08:45 09/27/25 08:44 22.5 MLS/HR Enteral Nutritional Formula 1,000 ml 45ML/HR GT 09/21/25 19:30 09/26/25 04:29 1,000 ML Albumin Human 100 ml @ 100 mls/hr PRN PRN IV 09/22/25 05:45 09/24/25 16:49 100 MLS/HR Bumetanide 1 mg DAILY IV 09/27/25 10:00 09/27/25 08:43 1 MG Examination General: patient is unresponsive, intubated, mechanically ventilated, on Levophed. HEENT: Normocephalic, atraumatic, dilated unreactive pupils, no extraocular movement, eyelid swelling. conjunctival injection, scleral edema, ET tube in place Respiratory/pulmonary: Bilateral chest expansion, clear lungs bilaterally, vesicular murmurs present in almost all lung cooper, no associated crackles or wheezes, on ventilator with settings of ACVC mode, RR 14, VT 400, FiO2 30%, peep 5 Cardiovascular: Normal RRR, hypotensive when moved Abdomen: Abdomen mildly distended, normal bowel sounds, soft, no grimacing or reaction on palpation Extremities: No deformities, nonpitting edema, pulses are present Skin: patchy petechiae, ecchymosis in various stages of healing, sacral scab. Neurological: GCS 3, pupils 8 mm and fixed bilaterally, no corneal, cough, gag, or oculocephalic reflexes, no spontaneous movement, no withdrawal to pain, rigid upper extremities, nuclear scan consistent with brain , occasional decorticate posturing laboratory and microbiology Laboratory Tests 09/27/25 03:03 Test 09/27/25 03:03 Range/Units Serum Glucose 135 H 74-106 mg/dL Microbiology Date/Time Source Procedure Growth Status 09/04/25 23:21 Urine - Sams Port Urine Culture - Final Complete 09/04/25 10:00 Nose MRSA Screen - Final Complete 09/04/25 04:22 Sputum Expectorated Sputum Gram Stain - Final Complete 09/04/25 04:22 Respiratory Culture - Final Staphylococcus aureus Complete 09/04/25 01:40 Blood Blood Culture - Final NO GROWTH AFTER 5 DAYS OF INCUBATION. Complete Problem List/Assessment/Plan Problem List/Assessment/Plan Neurology #Catastrophic, irreversible, severe anoxic brain injury; extremely poor prognosis Metabolic encephalopathy (secondary to anoxic injury) * Imaging consistent with brain * Clinical exam does NOT meet full brain- criteria (minimal brainstem reflex activity) * Spinal reflexes present * Prognosis: terminal # History of anxiety # Questionable Seizure like activity -Neurology on board - Neurology stated poor prognosis * Continue neuro checks Q1H * Maintain normothermia * Avoid hypotension/hypoxia * Nuclear brain perfusion scan consistent with brain * EEG: Severe diffuse cerebral dysfunction consistent with severe hypoxic metabolic encephalopathy For now full code. * Family fully understands prognosis and has chosen comfort-focused withdrawal tomorrow at 11 AM * Second neurologist exam does not meet brain criteria but poor prognosis, family updated * Maintain current ventilatory support Cardiology #Postcardiac arrest state (VF arrest - ROSC) #Mixed cardiogenic + septic shock on norepinephrine # heart failure with reduced ejection fraction likely post cardiac arrest # Dyslipidemia # Non ST-elevation myocardial infarction likely type 2 status post cardiac arrest, type 1 not ruled out -Echo : Conclusion MODERATELY DILATED RV AND IS HYPOKINETIC DYSKINESIS OF IVS RVSP IS 40 MM OF HG AND IS HIGH STUDY CONFIRM RV FAILURE GLOBAL LV HYPOKINESIS LV EF IS 40% AND IS REDUCED NORMAL VALVES NO EFFUSION Maintain SPP (Systolic Perfusion Pressure) > 90 mmHg at all times. * Titrate norepinephrine (LEVOPHED) drip to maintain SPP > 90 mmHg. * Monitor for multi-organ shock progression.* Avoid hypotension to preserve brain perfusion * Cardiology involved * Daily EKG * Trend troponins Given anoxic brain injury, the patient is not a candidate for invasive cardiac work-up as per cardiology continue conservative medical management. * Bradycardia episodes with repositioning move gently Respiratory #Acute hypoxic respiratory failure requiring mechanical ventilation * AC/VC: RR 15, TV 450, PEEP 5, FiO2 30% * VAP bundle * Daily CXR * Oral care Q4H * SBT contraindicated Infectious Disease #MSSA / possible aspiration pneumonia * STOPPED Unasyn today due to allergic rash * continue doxycycline * Continue to monitor rash progression * Monitor sputum, blood, urine cultures * COVID/Flu negative * WBC (mild improvement) * Sputum cultures sent * Cefepime and Doxycycline started Hematology Microcytic anemia # severe anemia requiring blood transfusion -2 unit of PRBC transfused Started on IV IRON # coagulopathy likely due to sepsis Monitor Thrombocytopenia (Plt 124), resolved * * Hgb stable at 7.5 , Discontinued Heparin, transfuse only if <7 * Platelets normal * DVT prophylaxis: Heparin held due to anemia * Use SCDs Renal * KIMI stage 3 on solitary kidney *Dialysis-dependent renal failure * Continue daily evaluation for kidney replacement therapy. * Avoid nephrotoxins * Daily BMP, Mg, Phos hyperkalemia Corrected #Hypercalcemia - Bumex - Monitor levels # hypernatremia -initially corrected with a half NS # metabolic acidosis due to sepsis Monitor ABG # respiratory alkalosis Decrease respiratory rate to 12 # hypomagnesemia Monitor Urology # complicated urinary tract infection -on antibiotics # Punctate nonobstructing right renal calculi. Seen on ultrasound # Left nephrectomy. Seen on ultrasound GI Shock liver (AST/ALT markedly elevated) now improving * Continue Nepro tube feeds @ 35 mL/hr * Check residuals Q4H * PPI for ulcer prophylaxis * Monitor stool output Endocrine * Insulin ACHS * Maintain BG [id number] Skin * Stage 1 sacral ulcer * Wound care following * Reposition Q2H * Beta-lactam hypersensitivity improving Ensure no heparin products (including flushes) STOP beta-lactams (done) Start doxycycline (done) Warm compresses to affected areas Reposition Q2H to reduce pressure contribution NO signs of cellulitis (no warmth) Topical emollients (Aquaphor) to reduce skin breakdown Monitor platelets daily OPHTHALMOLOGY * Conjunctival injection, swollen eyelids * Start Lacri-lube eye drops Q6H LINES / TUBES * ETT (09/04) * OG tube * Left femoral central line (09/04) * Sams catheter Right IJ tunneled dialysis catheter (09/09) * Daily line necessity review PROPHYLAXIS * DVT: SCDs only * GI: Pantoprazole * Ulcer: Q2H turns * VAP: oral care, CHG, HOB elevation SOCIAL WORK / FAMILY SUPPORT * Family updated extensively today Family meeting held * Request continuation of FULL CODE & full aggressive care for now * Social work available for support No cough or gag reflex, patient has some decorticate movement. Patient has poor likelihood meaningful recovery, high likelihood demise Due to persistent presence of right lower lobe opacity in chest xray, recent temperature spike, and presence of thick greenish yellow secretions, sputum cultures have been ordered and cefepime and doxycycline have been started. CODE STATUS FULL CODE Family updated today; despite detailed prognosis counseling, today states that terminal weaning however have not chosen a date for this. CRITICAL CARE TIME 50 minutes of critical care time spent today, excluding procedure time. Case discussed with Dr. Ruiz Plan discussed with: Spouse, Other (Nurse (Shavon)) Dietary Evaluation Review Comments: 1. nepro 35/hr providing 68g pro, 1487kcal, 611ml free water, meeting 107% energy needs, 80% protein needs 2. Increase amount of Protein support for wound healing when/if pt's kidney function impvoes. F/U and reassess when pt is off vent and PRN. Expected Outcomes/Goals: Adequate nutrition support for being on mechanical ventilation CC Plasma Assessment Blood Product Administration S: 06:05 Visit Coding STANDARD RES Billing Provider: MAXX RUIZ MD Date of Service if different f: Sep 27, 2025 LAURE NAGY RESIDENT Sep 27, 2025 13:25
[2025-09-27] MEDS ORDERED: CEFEPIME 1GM/50ML 50 ML IV SCH (17:30)
[2025-09-27] MEDS: DOXYCYCLINE 100MG/100ML 100 ML IV SCH (17:57)
[2025-09-27] MEDS: CEFEPIME 1GM/50ML 50 ML IV SCH (20:25)
--- NOTE | 2025-09-27 21:19 | DVHPN2 ---
Progress Note - Dictate Date Seen: Sep 27, 2025 Has the PT tested + for MRSA If YES, has PT been informed?: No Medical Necessity Reason Pt with a Central, PICC or Fol: Yes The following are medically ne: Central Line, Sams Catheter Subjective Ms. Murillo is a 40 years old female with a history of kidney stone, depression, anxiety, she was brought to the [facility] on 09/04/2025 with a chief complaint of cardio pulmonary arrest I have seen and examined the patient, talked to her nurse. and daughter in the room. No change in her clinical symptoms and physical examination. Her pupils are fixed and dilated with a left-sided bigger, no gag reflexes She has spontaneous and touch evoked decerebrate posturing Her daughter suggested follow up CT brain scan, but I did not think it would make differences, and she may not be stable enough for transfer to [facility] Waiting for family to decide code status Levo 12 mcg/min Urinalysis, 09/04/2025: WBC: 37, urine leukocyte esterase: Negative UDS, 09/04/2025: Negative Plasma alcohol, 09/04/2025: <3 ABG, 09/10/2025: Metabolic acidosis WBC/HB/PLT/MCV, 09/04/2025: 8.8/6.4/260/79.8 PT/INR/ABG, 09/04/2025: 70.4/1.73/ Na, 09/04/2025: 151, 148, 140 K, 09/04/2025: 6.3, 4.6, 3.2 BUN/CR, 09/04/2025: 30/2.69 09/12/25: 60 4/5.45 GFR, 09/12/2025: Nine TBI/AST/ALT/AP, 09/04/2025: 0.11/2481/4030/74, 0.01/5737/2100/93, 09/12/25: 0.2/148/180/165 Glucose, 09/04/2025: 146, 294, 503 HGB A1c, 09/04/2025: 5 Lactic acid, 09/04/2025: 21.1, or 15.2 Troponin one high sensitivity, 09/04/2025: 2769, 5664, 7574 TG/HDL/LDL/HDL, 09/04/2025: 186/86/41/25 Extremity venous study, 09/04/2025: NO SONOGRAPHIC EVIDENCE FOR DEEP VENOUS THROMBOSIS IN THE BILATERAL LOWER EXTREMITY VEINS Cerebral flow, 09/10/2025: Findings likely representing brain however clinical correlation is needed. Chest x-ray, 09/12/2025: Probable small bilateral pleural effusions with mild bibasilar atelectatic changes. CT head, 09/04/25: No acute intracranial abnormality (I saw evidence suggestive of early diffuse brain edema) CT head 09/05/25: Findings are consistent with severe diffuse cerebral and cerebellar edema possibly representing anoxic brain injury. vital signs Vital Sign Date Time Temp Pulse Resp B/P (MAP) Pulse Ox O2 Delivery O2 Flow Rate FiO2 09/27/25 20:16 93 16 100/59 (73) 97 30 09/27/25 18:00 Mechanical Ventilator+ 09/27/25 12:00 97.7 97.7 Total Intake and Output 09/26/25 09/26/25 09/27/25 15:00 23:00 07:00 Intake Total 300 ml 410 ml 482 ml Output Total 200 ml 850 ml Balance 300 ml 210 ml -368 ml medications Current Medications Medications Dose Ordered Sig/Ese Route Start Time Stop Time Status Last Admin Dose Admin Diagnostic Test (Pha) 1 strip ACHS 09/04/25 07:00 09/27/25 17:00 1 STRIP Insulin Human Regular ACHS SC 09/04/25 07:00 09/27/25 06:07 2 UNITS Dextrose 50 ml UD PRN IV 09/04/25 05:15 Pantoprazole Sodium 40 mg DAILY IV 09/06/25 10:00 09/27/25 08:43 40 MG Artificial Tears 1 drop Q4HP PRN EACHEYE 09/08/25 18:00 09/15/25 02:47 1 DROP Multi-Ingredient Ointment 1 applic DAILY TOP 09/10/25 10:00 09/27/25 08:44 1 APPLIC Norepinephrine Bitartrate 250 ml @ 3.75 mls/hr Q24H IV 09/15/25 08:45 09/27/25 17:47 22.5 MLS/HR Enteral Nutritional Formula 1,000 ml 45ML/HR GT 09/21/25 19:30 09/26/25 04:29 1,000 ML Albumin Human 100 ml @ 100 mls/hr PRN PRN IV 09/22/25 05:45 09/24/25 16:49 100 MLS/HR Bumetanide 1 mg DAILY IV 09/27/25 10:00 09/27/25 08:43 1 MG Doxycycline Hyclate 100 ml @ 50 mls/hr Q12H IV 09/27/25 17:30 09/27/25 17:57 50 MLS/HR Cefepime HCl 50 ml @ 12.5 mls/hr DAILY@2000 IV 09/27/25 20:00 09/27/25 20:25 12.5 MLS/HR objective The patient is well-nourished and well-developed with no distress. The patient is intubated MENTAL STATUS: Nonresponsive stroke painful stimuli CRANIAL NERVES: Pupils are equal, round, and fixed. There are no corneal reflexes and no doll's eyes phenomenon. No signs of facial weakness. There are no gagging or coughing reflexes SENSATION: No responses to strong pain stimuli. MOTOR: Normal muscle bulk. No fasciculations. No spontaneous movement. Increased muscle tone in the left upper extremity. See subjective REFLEXES: Deep tendon reflexes are symmetrical. No pathological reflexes. CEREBELLAR/COORDINATION: Deferred GAIT/STATION: deferred. laboratory and microbiology Laboratory Tests 09/27/25 03:03 Test 09/27/25 03:03 Range/Units Serum Glucose 135 H 74-106 mg/dL Problem List Cardiopulmonary arrest Coma/Metabolic/hypoxic encephalopathy Metabolic acidosis Acute respiratory failure Elevated troponin/heart attack Severe anemia Shocked liver Hypernatremia Increased muscle tone in the left arm Decerebrate posturing Assessment/Plan Monitoring Supportive treatment ICU care Follow up labs Stabilize vitals/pressor drip Respiratory support/vent management Oxygen Antibiotics DVT prophylaxis GI prophylaxis More recommendation per clinical course Poor prognosis for meaningful/overall recovery Family to decide code status This medical document was created using an electronic medical record system with [employer] control dictation system. Although this document has been carefully reviewed, there may still be some phonetic and typographical errors. These areas are purely typographical due to imperfections of the software programs, and do not reflect any compromise in the patient's medical care. Prognosis poor Dietary Evaluation Review Comments: 1. nepro 35/hr providing 68g pro, 1487kcal, 611ml free water, meeting 107% energy needs, 80% protein needs 2. Increase amount of Protein support for wound healing when/if pt's kidney function impvoes. F/U and reassess when pt is off vent and PRN. Expected Outcomes/Goals: Adequate nutrition support for being on mechanical ventilation Plan discussed with: Daughter, Other CC Plasma Assessment Blood Product Administration S: 06:05 ALEXIS DEL ANGEL MD Sep 27, 2025 21:19
--- NOTE | 2025-09-27 23:35 | DVHPN2 ---
Subjective DOS: 09/27/2025 Patient seen and examined at bedside. Intubated on mechanical ventilator. Overnight events reviewed. Changes from previous H/P or p: No Changes Eyes: No Pain, No Vision change, No Conjunctivae inflammation, No Eyelid inflammation, No Other, No Redness ENT: No Ear pain, No Ear discharge, No Nose pain, No Nose discharge, No Nose congestion, No Mouth pain, No Mouth swelling, No Throat pain, No Throat swelling, No Other Cardiovascular: No Chest Pain, No Palpitations, No Orthopnea, No Paroxysmal Noc. Dyspnea, No Edema, No Lt Headedness; Other (Cardiac arrest) Respiratory: No Cough, No Dry; Shortness of breath; No SOB with excertion, No Wheezing, No Hemoptysis, No Pleuritic Pain, No Sputum; Other (On ventilator) Gastrointestinal: No Nausea, No Vomiting, No Abdominal Pain, No Diarrhea, No Constipation, No Melena, No Hematochezia, No Other Genitourinary: No Dysuria, No Frequency, No Incontinence, No Hematuria, No Retention; Other (Sams catheter in place) Musculoskeletal: No other, No neck pain, No shoulder pain, No arm pain, No back pain, No hand pain, No leg pain, No foot pain Skin: No Rash, No Lesions, No Jaundice, No Bruising, No Other Objective Vitals Vital Signs Date Time Temp Pulse Resp B/P (MAP) Pulse Ox O2 Delivery O2 Flow Rate FiO2 09/27/25 22:10 96 16 99/57 (71) 97 30 09/27/25 20:00 Mechanical Ventilator+ 09/27/25 12:00 97.7 97.7 Intake/Output Intake and Output 09/27/25 07:00 Intake Total 1192 ml Output Total 1050 ml Balance 142 ml Intake Oral 60 ml IV Total 300 ml Tube Feeding 832 ml Output Urine Total 1050 ml Exam Gen.: Patient lying in bed in medical ICU. Intubated on mechanical ventilator. Head: Normocephalic, atraumatic. Eyes: PERRLA. Ears: Normal external anatomy. Throat: Endotracheal tube and orogastric tube in place. Neck: Supple, trachea midline. Chest: Transmitted breath sounds bilaterally. Decreased air entry bilaterally. No wheezing. Bibasilar crackles. Cardiovascular: Positive S1, positive S2. Regular rate and rhythm. Abdomen: Positive bowel sounds in all 4 quadrants. Soft, nontender, nondistended. : Sams in place. Normal external genitalia. Rectal: Deferred. Skin: Warm, dry. Intact. Extremities: 2+ radial pulses bilaterally. No lower extremity edema. Neuro: Off sedation, unresponsive. Decorticate movements; no cough/gag. Medications Current Medications Medications Dose Ordered Sig/Ese Route Start Time Stop Time Status Last Admin Dose Admin Diagnostic Test (Pha) 1 strip ACHS 09/04/25 07:00 09/27/25 22:32 1 STRIP Insulin Human Regular ACHS SC 09/04/25 07:00 09/27/25 22:33 2 UNITS Dextrose 50 ml UD PRN IV 09/04/25 05:15 Pantoprazole Sodium 40 mg DAILY IV 09/06/25 10:00 09/27/25 08:43 40 MG Artificial Tears 1 drop Q4HP PRN EACHEYE 09/08/25 18:00 09/15/25 02:47 1 DROP Multi-Ingredient Ointment 1 applic DAILY TOP 09/10/25 10:00 09/27/25 08:44 1 APPLIC Norepinephrine Bitartrate 250 ml @ 3.75 mls/hr Q24H IV 09/15/25 08:45 09/27/25 17:47 22.5 MLS/HR Enteral Nutritional Formula 1,000 ml 45ML/HR GT 09/21/25 19:30 09/26/25 04:29 1,000 ML Albumin Human 100 ml @ 100 mls/hr PRN PRN IV 09/22/25 05:45 09/24/25 16:49 100 MLS/HR Bumetanide 1 mg DAILY IV 09/27/25 10:00 09/27/25 08:43 1 MG Doxycycline Hyclate 100 ml @ 50 mls/hr Q12H IV 09/27/25 17:30 09/27/25 17:57 50 MLS/HR Cefepime HCl 50 ml @ 12.5 mls/hr DAILY@2000 IV 09/27/25 20:00 09/27/25 20:25 12.5 MLS/HR Laboratory Results Laboratory Tests 09/27/25 03:03 Chemistry Test 09/27/25 03:03 Albumin 3.9 g/dL (3.2-4.8) Calcium Level 13.0 mg/dL (8.7-10.4) *H Magnesium Level 2.5 mg/dL (1.6-2.6) Phosphorus Level 7.4 mg/dL (2.4-5.1) H Total Protein 8.2 g/dL (5.7-8.2) LFT Test 09/27/25 03:03 Alanine Aminotransferase (ALT) 217 U/L (7-40) H Alkaline Phosphatase 476 U/L (46-116) H Aspartate Amino Transferase (AST) 492 U/L (13-40) H Total Bilirubin 0.2 mg/dL (0.2-1.0) Urinalysis Test 09/04/25 03:14 09/04/25 13:46 Urine Color Light-orange (Yellow) Urine Clarity Turbid (Clear) H Urine pH 5.5 (5.0-9.0) Urine Specific [place] 1.015 (1.001-1.035) Urine Protein 2+ (Negative) H Urine Ketones 1+ (Negative) H Urine Blood 3+ /uL (Negative) H Urine Nitrite Negative (Negative) Urine Bilirubin Negative (Negative) Urine Urobilinogen Normal mg/dL (Negative) Urine Leukocyte Esterase Negative /uL (Negative) Urine RBC 281 /hpf (0 - 4) Urine Microscopic WBC 37 /HPF (0-5) H Urine Squamous Epithelial Cells Few /hpf (<5) Urine Calcium Oxalate Crystals Few (None Seen) Urine Bacteria Few /hpf (None Seen) H Urine Hyaline Casts Many /lpf (0 - 2) Urine Mucus Few (None Seen) Urine Glucose Trace mg/dL (Normal) Urine Creatinine 85.45 mg/dL (30.0-125.0) Urine Protein/Creatinine Ratio 5.39 Urine Sodium 52 mmol/L (40-220) Urine Total Protein 460.9 mg/dL (1-14) H Blood Gas Results Test 09/27/25 07:08 Arterial Blood pH 7.300 (7.350-7.450) FiO2 % 30.0 Microbiology Microbiology Date/Time Source Procedure Growth Status 09/04/25 23:21 Urine - Sams Port Urine Culture - Final Complete 09/04/25 10:00 Nose MRSA Screen - Final Complete 09/04/25 04:22 Sputum Expectorated Sputum Gram Stain - Final Complete 09/04/25 04:22 Respiratory Culture - Final Staphylococcus aureus Complete 09/04/25 01:40 Blood Blood Culture - Final NO GROWTH AFTER 5 DAYS OF INCUBATION. Complete Assessment/Plan Assessment/Plan Impression: Acute hypoxic respiratory failure On mechanical ventilator Metabolic encephalopathy 2/2 anoxic brain injury S/p cardiac arrest (VF arrest - ROSC) Heart failure with reduced ejection fraction Non ST-elevation myocardial infarction MSSA/aspiration pneumonia Severe anemia requiring blood transfusion Shock liver KIMI stage 3 on solitary kidney Dialysis-dependent renal failure Complicated urinary tract infection Stage 1 sacral ulcer Events: Remains on vent support On AC mode; RR 14-->18, VT 400, PEEP 5-->8, FiO2 30% ABG notable for acidemia. CXR shows mild infiltrates in the right mid and lower lung. Devices in place. Remains off sedation Pressors for hemodynamic support On Levophed Titrate to keep mean arterial pressure greater than 65 mmHg. Hemodialysis per Nephrology. S/p HD yesterday Bumex BID for diuresis Monitor renal function Monitor electrolytes, supplement as necessary. Hypercalcemia - Ca of 13. Tube feeds for nutritional support Continue antibiotics Start vanco/cefepime/doxycycline Obtain sputum cultures. WBC trending up to 13.1 K Anemia - hemoglobin trended up to 9.0 g/dL Patient with decorticate movements; no cough/gag. Neurology second opinion noted. Patient has poor likelihood of meaningful recovery. High likelihood of demise. Labs and imaging reviewed. Rest of plan as noted below. Plan: s/p intubation on mechanical ventilator. On AC mode; RR 18, VT 400, PEEP 8, FiO2 30% Titrate FIO2 to keep O2 saturation above 90%. VAP bundle. Supportive care Poor prognosis Awaiting family decision on goals of care. Nuclear brain perfusion scan consistent with brain EEG: Severe diffuse cerebral dysfunction consistent with severe hypoxic metabolic encephalopathy Neuro checks Neurology recommendations appreciated Follow up GI recommendations Cardiology recommendations appreciated. Echocardiogram reviewed: MODERATELY DILATED RV AND IS HYPOKINETIC DYSKINESIS OF IVS RVSP 40 MMHG - ELEVATED STUDY CONFIRMS RV FAILURE GLOBAL LV HYPOKINESIS LVEF IS 40% AND IS REDUCED Pressors for hemodynamic support Titrate to keep mean arterial pressure greater than 65 mmHg. Accu-Cheks, ISS PRN. HD per Nephrology Monitor renal function Monitor electrolytes. Supplement as necessary. Monitor ins and outs. Maintain euvolemia. Wound care. GI prophylaxis. DVT prophylaxis. Prognosis: Poor given patient's multiple co-morbidities. Condition: Critical Rest of plan per hospitalist and other consultants. A total of 35 minutes of critical care time was spent reviewing the patient record, examining the patient, making a diagnostic and therapeutic plan, discussing this plan with the medical personnel, following up on diagnostic studies and following the patient for clinical stability excluding any and all procedures. At least 50% of this time was spent in direct, [id number] contact. Thank you, Dr. Antoine, for allowing me to participate in this patient's care. Further recommendations will depend on the patient's clinical course. Please do not hesitate to contact me if you have any questions or concerns. This medical document was created using an electronic medical record system with [employer] dictation system. Although these documentations are being carefully reviewed, there may still be some phonetic and typographical changes. The errors are purely typographical, due to imperfection on the software program, and do not reflect any compromise in the patient's medical care. Plan discussed with: Other (YANE Sands) My Orders Orders - MAXX COOPER MD Procedure Category Date Status Time Chest Portable XY 09/28/25 Logged 04:00 Complete Blood Count LAB 09/28/25 Verified 04:00 Comprehensive LAB 09/28/25 Verified Metabolic Panel 04:00 Magnesium LAB 09/28/25 Verified 04:00 Visit Coding Pulmonary Billing Provider: MAXX COOPER MD Date of Service if different f: Sep 27, 2025 Common Visit Codes: 30488-[id number] INP/OBS CARE(HIGH), 89956-[id number] CARE 30-74 MIN MAXX COOPER MD Sep 27, 2025 23:35
--- NOTE | 2025-09-27 23:53 | DVHPN2 ---
Progress Note - Dictate Date Seen: Sep 27, 2025 Has the PT tested + for MRSA If YES, has PT been informed?: No Medical Necessity Reason Pt with a Central, PICC or Fol: Yes The following are medically ne: Central Line, Sams Catheter Subjective Patient was seen and evaluated in follow up in the ICU. Patient is intubated on ventilator. FiO2 30%. WBC 13.1, HGB 9, HCT 29.8. Chest x-ray shows mild infiltrates are suspected in the right mid and lower lung. No large consolidation is seen. vital signs Vital Sign Date Time Temp Pulse Resp B/P (MAP) Pulse Ox O2 Delivery O2 Flow Rate FiO2 09/27/25 12:45 88 16 92/62 (72) 98 09/27/25 12:00 30 09/27/25 12:00 Mechanical Ventilator+ 09/27/25 12:00 97.7 97.7 Total Intake and Output 09/26/25 09/26/25 09/27/25 15:00 23:00 07:00 Intake Total 300 ml 410 ml 482 ml Output Total 200 ml 850 ml Balance 300 ml 210 ml -368 ml medications Current Medications Medications Dose Ordered Sig/Ese Route Start Time Stop Time Status Last Admin Dose Admin Diagnostic Test (Pha) 1 strip ACHS 09/04/25 07:00 09/27/25 06:05 1 STRIP Insulin Human Regular ACHS SC 09/04/25 07:00 09/27/25 06:07 2 UNITS Dextrose 50 ml UD PRN IV 09/04/25 05:15 Pantoprazole Sodium 40 mg DAILY IV 09/06/25 10:00 09/27/25 08:43 40 MG Artificial Tears 1 drop Q4HP PRN EACHEYE 09/08/25 18:00 09/15/25 02:47 1 DROP Multi-Ingredient Ointment 1 applic DAILY TOP 09/10/25 10:00 09/27/25 08:44 1 APPLIC Norepinephrine Bitartrate 250 ml @ 3.75 mls/hr Q24H IV 09/15/25 08:45 09/27/25 08:44 22.5 MLS/HR Enteral Nutritional Formula 1,000 ml 45ML/HR GT 09/21/25 19:30 09/26/25 04:29 1,000 ML Albumin Human 100 ml @ 100 mls/hr PRN PRN IV 09/22/25 05:45 09/24/25 16:49 100 MLS/HR Bumetanide 1 mg DAILY IV 09/27/25 10:00 09/27/25 08:43 1 MG objective GENERAL: Ill appearing, intubated on ventilator. EYES: PERRL, EOMI. Anicteric. HENT: Moist mucous membranes. LUNGS: Decreased breath sounds. CARDIOVASCULAR: Regular rate and rhythm. ABDOMEN: Soft, nontender and nondistended. EXTREMITIES: No edema. SKIN: Warm, dry. laboratory and microbiology Laboratory Tests 09/27/25 03:03 Test 09/27/25 03:03 Range/Units Serum Glucose 135 H 74-106 mg/dL Problem List Cardiopulmonary arrest with ROSC. Ventricular fibrillation arrest with defibrillation at 100J. Non ST-elevation myocardial infarction. Acute anemia status post blood transfusion (-FOBT). Acute hypoxic respiratory failure. Likely KIMI on CKD. Left nephrectomy. Shocked Liver. Dyslipidemia, newly diagnosed. Cerebral and cerebellar edema, anoxic brain injury. ? Suspected PE with RV failure and PAH. Assessment/Plan Continued all current supportive medical care. GI prophylactics. Diuretics with Bumex. Vasopressors for hemodynamic support. Additional plan as per the hospital course. Critical care time of 45 minutes provided to include time spent evaluation of patient at bedside, when appropriate patient/family education for diagnosis, treatment plan, review of pertinent medical information and discussion of care with specialty providers and PCP. Mechanical ventilator parameters, treatment and adjustments have personally been reviewed by me and treatment plan by tank officer has also been reviewed. Dietary Evaluation Review Comments: 1. nepro 35/hr providing 68g pro, 1487kcal, 611ml free water, meeting 107% energy needs, 80% protein needs 2. Increase amount of Protein support for wound healing when/if pt's kidney function impvoes. F/U and reassess when pt is off vent and PRN. Expected Outcomes/Goals: Adequate nutrition support for being on mechanical ventilation Plan discussed with: Other CC Plasma Assessment Blood Product Administration S: 06:05 RISHI SOARES MD Sep 27, 2025 13:35
[2025-09-28] VITALS (108 sets, daily range): BP systolic 78–116; BP diastolic 33–77; PULSE 88–113; RESP 15–22; TEMP 97.9–99.3; O2SAT 93–100
[2025-09-28 02:22] LABS: Base Excess -1.8 mmol/L (-2.0-3.0)
[2025-09-28 03:37] LABS: Hematocrit 29.1 % (36.0-46.0); Hemoglobin 9.2 g/dL (12.2-16.2); Mean Corpuscular Hemoglobin 23.4 pg (28.0-32.0); Mean Corpuscular Volume 73.7 fL (80.0-100.0); Nucleated Red Blood Cells % 0.1 %
[2025-09-28 03:50] LABS: Albumin 3.7 g/dL (3.2-4.8); Anion Gap 16 (5-15); BUN/Creatinine Ratio 19.3 (10.0-20.0); Carbon Dioxide 27 mmol/L (20-31); Chloride 103 mmol/L (98-107); Potassium 4.6 mmol/L (3.5-5.1); Total Protein 8.0 g/dL (5.7-8.2)
[2025-09-28 04:01] LABS: Glucose 140 mg/dL (74-106); Sodium 146 mmol/L (136-145)
[2025-09-28 04:02] LABS: Alanine Aminotransferase 400 U/L (7-40); Alkaline Phosphatase 539 U/L (46-116); Bilirubin, Total < 0.2 mg/dL (0.2-1.0); Blood Urea Nitrogen 72 mg/dL (9-23); Magnesium 2.8 mg/dL (1.6-2.6)
[2025-09-28 04:04] LABS: Calcium 13.9 mg/dL (8.7-10.4)
--- NOTE | 2025-09-28 04:31 | DVH ---
CHEST RADIOGRAPH Indication: INTUBATED Technique: Single frontal view of the chest was obtained Comparison: XY CHEST XRAY 1 VIEW on DOS: 09/27/25. FINDINGS: Lines and Tubes: The endotracheal tube terminates 2.4 cm above the osmel. There is a right central venous catheter with its tip terminating in the superior vena cava. The enteric tube courses below the left hemidiaphragm and the tip extends outside the field of view. Lungs: Patchy bilateral opacities are similar to prior study. Pleura: No effusion. No pneumothorax. Cardiomediastinal contours: Unremarkable Bones: No acute osseous abnormality. IMPRESSION: 1. Support tubes in appropriate position. 2. Patchy bilateral airspace opacities are similar to prior study.
[2025-09-28 07:02] LABS: Base Excess -1.3 mmol/L (-2.0-3.0)
--- NOTE | 2025-09-28 10:48 | DVHPN2 ---
Progress Note - Dictate Date Seen: Sep 28, 2025 Has the PT tested + for MRSA If YES, has PT been informed?: No Medical Necessity Reason Pt with a Central, PICC or Fol: Yes The following are medically ne: Central Line, Sams Catheter Subjective Ms. Murillo is a 40 years old female with a history of kidney stone, depression, anxiety, she was brought to the [facility] on 09/04/2025 with a chief complaint of cardio pulmonary arrest I have seen and examined the patient, talked to her nurse. Family in the room. Blood pressure is unstable. Her pupils are fixed and dilated with a left-sided bigger, no gag reflexes She has spontaneous and touch evoked decerebrate posturing Waiting for family to decide code status Levo 14 mcg/min Urinalysis, 09/04/2025: WBC: 37, urine leukocyte esterase: Negative UDS, 09/04/2025: Negative Plasma alcohol, 09/04/2025: <3 ABG, 09/10/2025: Metabolic acidosis WBC/HB/PLT/MCV, 09/04/2025: 8.8/6.4/260/79.8 PT/INR/ABG, 09/04/2025: 70.4/1.73/ Na, 09/04/2025: 151, 148, 140 K, 09/04/2025: 6.3, 4.6, 3.2 BUN/CR, 09/04/2025: 30/2.69 09/12/25: 60 4/5.45 GFR, 09/12/2025: Nine TBI/AST/ALT/AP, 09/04/2025: 0.11/2481/4030/74, 0.01/5737/2100/93, 09/12/25: 0.2/148/180/165 Glucose, 09/04/2025: 146, 294, 503 HGB A1c, 09/04/2025: 5 Lactic acid, 09/04/2025: 21.1, or 15.2 Troponin one high sensitivity, 09/04/2025: 2769, 5664, 7574 TG/HDL/LDL/HDL, 09/04/2025: 186/86/41/25 Extremity venous study, 09/04/2025: NO SONOGRAPHIC EVIDENCE FOR DEEP VENOUS THROMBOSIS IN THE BILATERAL LOWER EXTREMITY VEINS Cerebral flow, 09/10/2025: Findings likely representing brain however clinical correlation is needed. Chest x-ray, 09/12/2025: Probable small bilateral pleural effusions with mild bibasilar atelectatic changes. CT head, 09/04/25: No acute intracranial abnormality (I saw evidence suggestive of early diffuse brain edema) CT head 09/05/25: Findings are consistent with severe diffuse cerebral and cerebellar edema possibly representing anoxic brain injury. vital signs Vital Sign Date Time Temp Pulse Resp B/P (MAP) Pulse Ox O2 Delivery O2 Flow Rate FiO2 09/28/25 10:15 91 20 112/58 (76) 95 09/28/25 10:00 30 09/28/25 10:00 Mechanical Ventilator+ 09/28/25 08:00 97.9 97.9 Total Intake and Output 09/27/25 09/27/25 09/28/25 15:00 23:00 07:00 Intake Total 515 ml 457 ml Output Total 600 ml 575 ml Balance -85 ml -118 ml medications Current Medications Medications Dose Ordered Sig/Ese Route Start Time Stop Time Status Last Admin Dose Admin Diagnostic Test (Pha) 1 strip ACHS 09/04/25 07:00 09/28/25 06:36 1 STRIP Insulin Human Regular ACHS SC 09/04/25 07:00 09/28/25 06:36 3 UNITS Dextrose 50 ml UD PRN IV 09/04/25 05:15 Pantoprazole Sodium 40 mg DAILY IV 09/06/25 10:00 09/28/25 09:55 40 MG Artificial Tears 1 drop Q4HP PRN EACHEYE 09/08/25 18:00 09/15/25 02:47 1 DROP Multi-Ingredient Ointment 1 applic DAILY TOP 09/10/25 10:00 09/28/25 09:55 1 APPLIC Norepinephrine Bitartrate 250 ml @ 3.75 mls/hr Q24H IV 09/15/25 08:45 09/28/25 04:52 22.5 MLS/HR Enteral Nutritional Formula 1,000 ml 45ML/HR GT 09/21/25 19:30 09/28/25 03:14 1,000 ML Albumin Human 100 ml @ 100 mls/hr PRN PRN IV 09/22/25 05:45 09/24/25 16:49 100 MLS/HR Bumetanide 1 mg DAILY IV 09/27/25 10:00 09/28/25 09:54 1 MG Doxycycline Hyclate 100 ml @ 50 mls/hr Q12H IV 09/27/25 17:30 09/28/25 05:00 50 MLS/HR Cefepime HCl 50 ml @ 12.5 mls/hr DAILY@1999 IV 09/27/25 20:00 09/27/25 20:25 12.5 MLS/HR objective The patient is well-nourished and well-developed with no distress. The patient is intubated MENTAL STATUS: Nonresponsive stroke painful stimuli CRANIAL NERVES: Pupils are equal, round, and fixed. There are no corneal reflexes and no doll's eyes phenomenon. No signs of facial weakness. There are no gagging or coughing reflexes SENSATION: No responses to strong pain stimuli. MOTOR: Normal muscle bulk. No fasciculations. No spontaneous movement. Increased muscle tone in the left upper extremity. See subjective REFLEXES: Deep tendon reflexes are symmetrical. No pathological reflexes. CEREBELLAR/COORDINATION: Deferred GAIT/STATION: deferred. laboratory and microbiology Laboratory Tests 09/28/25 02:52 Test 09/28/25 02:52 Range/Units Serum Glucose 140 H 74-106 mg/dL Problem List Cardiopulmonary arrest Coma/Metabolic/hypoxic encephalopathy Metabolic acidosis Acute respiratory failure Elevated troponin/heart attack Severe anemia Shocked liver Hypernatremia Increased muscle tone in the left arm Decerebrate posturing Assessment/Plan Monitoring Supportive treatment ICU care Follow up labs Stabilize vitals/pressor drip Respiratory support/vent management Oxygen Antibiotics DVT prophylaxis GI prophylaxis More recommendation per clinical course Poor prognosis for meaningful/overall recovery Family to decide code status This medical document was created using an electronic medical record system with [employer] dictation system. Although this document has been carefully reviewed, there may still be some phonetic and typographical errors. These areas are purely typographical due to imperfections of the software programs, and do not reflect any compromise in the patient's medical care. Prognosis poor Dietary Evaluation Review Comments: 1. nepro 35/hr providing 68g pro, 1487kcal, 611ml free water, meeting 107% energy needs, 80% protein needs 2. Increase amount of Protein support for wound healing when/if pt's kidney function impvoes. F/U and reassess when pt is off vent and PRN. Expected Outcomes/Goals: Adequate nutrition support for being on mechanical ventilation Plan discussed with: Other CC Plasma Assessment Blood Product Administration S: 06:05 ALEXIS DEL ANGEL MD Sep 28, 2025 10:48
--- NOTE | 2025-09-28 12:50 | DVHPNRES ---
Progress Note Date Seen: Sep 28, 2025 Resident Creating Document: FRANCIS PRESSLEY RESIDENT Has the PT tested + for MRSA If YES, has PT been informed?: No Medical Necessity Reason Pt with a Central, PICC or Fol: Yes The following are medically ne: Central Line, Sams Catheter Subjective Review of Systems The patient is a 40-year-old female with past medical history of anxiety, UTIs, and kidney stones who presented to [facility] ED for evaluation of cardiac arrest. As reported by EMS/family, patient had cardiac arrest, was asystole 1238 a.m., CPR initiated by family. Patient was initially anxious but was not having any complaints like chest pain or shortness of breath. EMS were on the scene within 5 minutes, CPR continued, patient was given IV fluid, epinephrine x2, became VFib so patient was shocked at 100 joules, Narcan given, became asystole again upon arrival at ER at 0108 hours, blood sugar upon arrival was 43, ROSC obtained at 0112 a.m. Family also reports that patient was depressed for the past 5 years, she has been staying in bed with decreased oral intake, had a fall injury in April resulting in arm and hip fracture. They denied any other significant past medical history. Patient was seen and evaluated in the ED, laboratory data shows WBC 8.8, hemoglobin 6.4, hematocrit 25.0, platelets 260, sodium 151, potassium 6.3, BUN 29, creatinine 2.52, GFR 24, glucose 146, anion gap 28.001, calcium 7.9, lactic acid 21.1 trending down to 15.2, magnesium 4.1, AST 2482, ALT 1430, troponin 2769, BNP 8.48, lipase 31, protein 4.8, albumin 2.7, blood pressure 151/22 trending up to 107/30, heart rate 106, temperature 94.2 F, O2 saturation 97% on ventilator. Head CT showed no acute intracranial abnormality. Patient was started on IV antibiotic regimen vancomycin, please see medication orders section in the computer. On my assessment, patient remains fully intubated, no diaphoresis, no diarrhea, vomiting, no fever. Patient was admitted for further evaluation and medical management. past surgical history; family denies family history: noncontributory past social history: patient lives with the family, denies any smoking, alcohol, drug use 09/06/25: patient seen in ICU. Patient is intubated, on Levophed o, off sedation. Head CT showed diffuse cerebral and cerebellar edema due to anoxic brain injury. neurology following, neurology stated poor prognosis. Kidney functions worsening. Patient's family states before admission patient has seizure-like activity, loss of consciousness which was on and off during the whole day. 09/07/25 40-year-old female in the ICU following cardiopulmonary arrest on 09/04/25, now with severe anoxic brain injury. * Intubated, mechanically ventilated * Off all sedation * No spontaneous movements * No response to pain * No brainstem reflexes: absent corneal, cough, gag, oculocephalic reflexes * Pupils 8 mm, fixed, nonreactive * Family updated todaypoor prognosis discussed, but family chooses FULL CODE and wants everything done Overnight: * Urine output 250 mL total/ 0.15ML/KG/HR * Sams in place, urine [id number] annia * Tube feeds restarted, residuals 15 mL, tolerated * Small bowel movement today * Yamileth-care and sacral wound care performed EEG completed at bedside today for assessment of anoxic injury. Hemodynamics: * On norepinephrine drip for shock Respiratory: * Lungs clear except mild right basal infiltrates Consults: Neurology and Nephrology actively following. 09/08/25 The patient remains critically ill, intubated, mechanically ventilated, and off all sedation since 09/05. Overnight and through today, there continues to be no neurologic improvement. * Mental status unchanged and remains unresponsive/comatose * EEG yesterday inconclusive. Neurology now ordering brain perfusion scan today for brain evaluation * On norepinephrine drip, titrated 8 - 4 mcg/min * CXR today: no major change, persistent bilateral mixed pulmonary opacities and probable small pleural effusions * Oliguria continues * Urine output overnight: 100 mL * Total UO last 24h: 200 mL * Nephrology discontinued Lasix 80 mg BID * Lasix drip started * IR consulted for tunneled dialysis catheter placed today * Plan for hemodialysis/CYBER SECURITY ANALYST likely tomorrow Patient remains in critical multiorgan dysfunction with severe irreversible anoxic brain injury, worsening renal failure requiring CYBER SECURITY ANALYST preparation, hemodynamic instability requiring vasopressors, and persistent respiratory failure on the ventilator. No neurologic recovery. Full code per family request. 09/09/25 The patient remains critically ill, intubated, mechanically ventilated, and off all sedation since 09/05. Overnight and through today, there continues to be no neurologic improvement. * Mental status unchanged and remains unresponsive/comatose * EEG yesterday inconclusive . Neurology now ordering brain perfusion scan today for brain evaluation * Oliguria continues * IR consulted tunneled dialysis catheter today * Plan for hemodialysis/CYBER SECURITY ANALYST likely tomorrow, patient developed b/l upper extremity rash near the right elbow and left antecubital fossa. Patient remains in critical multiorgan dysfunction with severe irreversible anoxic brain injury, worsening renal failure requiring CYBER SECURITY ANALYST preparation, hemodynamic instability requiring vasopressors, and persistent respiratory failure on the ventilator. No neurologic recovery.Full code per family request. 09/10/25 he patient continues to remain critically ill, unresponsive, mechanically ventilated, off all sedation, with severe anoxic brain injury and no signs of neurologic recovery. Family continues to request FULL CODE and continuation of all aggressive medical care. * Urine output: 0.16 mL/kg/hr (severely oliguric) * Yesterday: Hemodialysis with 700 mL ultrafiltration * Today: Plan for 11.5 L ultrafiltration * Tunneled right IJ permacath placed 09/09 * Lasix drip discontinued * Creatinine 5.9 (improving from 7.58) * Iron studies: * Iron 11 (low),TIBC 204 (low),Saturation 5.4% (severely low),Ferritin 132 * EEG: Severe diffuse cerebral dysfunction consistent with severe hypoxic metabolic encephalopathy * Poor prognosis confirmed by neurology * Brain perfusion nuclear scan scheduled today/tomorrow for brain evaluation * Diffuse purpuric rash spreading over upper extremities and lower extremities * Ecchymosis + petechiae + non-blanching lesions * Rash progression after Unasyn possible beta-lactam hypersensitivity * Unasyn discontinued today * Doxycycline started 09/11/25 The patient was examined at bedside this morning. She remains critically ill, mechanically ventilated, unresponsive, and off all sedation. Today's major update is the nuclear brain perfusion scan showing complete absence of intracranial perfusion with hot-nose sign, radiologically consistent with BRAIN , pending final neurologic confirmation. Family was updated about the extremely poor prognosis; however, they insist on FULL CODE and full aggressive care. * When repositioned, HR drops into 30s returned to baseline after stabilization * SpO2: 98% on FiO2 30% * No fever * Urine output: 0.05 mL/kg/hr (severe oliguria) * HD yesterday removed 1.5 L UF * HD planned again tomorrow 09/12/25 The patient was evaluated at bedside today. She remains intubated, mechanically ventilated, and entirely unresponsive with no sedation on board. Neurology officially confirmed BRAIN today based on: * Absent brainstem reflexes * No spontaneous respiration * Nuclear medicine brain perfusion scan showing complete absence of intracranial perfusion * Clinical brain examination performed and documented This was explained thoroughly to the family. Despite clear communication, the family continues to request FULL CODE status and all aggressive measures, including long-term life support and LTAC placement. A social problems specialist/Case Management consult has been placed for LTAC disposition per family request. 09/13/2025 The patient was evaluated today in the ICU. She remains intubated, mechanically ventilated, on Levophed, and unresponsive with no sedation. She is afebrile, normocardic, and with MAP maintained on pressors. Labs today showed drop in Hb to 6.9, for which 1 unit of PRBC was transfused. Creatinine and BUN continue to increase, for which she was dialyzed today. Stool sample were also to evaluate any possible bleeding. Brain has been declared by neurology, family wishes for her to remain FULL CODE at this time. Per Chili Maker, the patient does not qualify for LTAC placement at this time. We will continue to monitor. 09/14/25 The patient was evaluated at bedside today. She remains intubated and mechanically ventilated, without sedation, unresponsive, and with previously confirmed brain (absent brain perfusion, absent brainstem reflexes, nuclear perfusion scan positive for brain ). She continues to exhibit no neurologic function. Family met at bedside today. The irreversible prognosis and confirmed brain status were reviewed again. Family is currently discussing goals of care but for now insists the patient remain FULL CODE with continued aggressive care, including ongoing mechanical ventilation and dialysis as needed. Overnight Interval Events Hemoglobin dropped to 6.6 1 unit PRBC transfused post-transfusion Hgb 8.7 Dialysis removed 2 L Rash continues to improve No major ventilatory changes Hemodynamics fluctuating but stable with vasopressors 09/15/25 The patient was evaluated at bedside today. She remains intubated, mechanically ventilated, unresponsive without sedation. Neurologically, she continues to exhibit no cerebral or brainstem activity, consistent with previously documented brain on nuclear medicine perfusion study. Important new finding today: Despite clinical brain , the patient demonstrates spinal reflex activity, including: * Muscle twitching in upper extremities * Brief fast fasciculatory movements upon touch * Reflexive limb motion during turning and repositioning These findings are consistent with spinal reflex arcs, not cortical activity, and do not contradict brain physiology. Family has not yet decided regarding withdrawal of care and continues to insist on full aggressive measures. A second neurologist is scheduled for repeat confirmatory brain- exam today. Hemodialysis ongoing, with UF goal 1 L. Rash that developed after Unasyn is improving.Thrombocytopenia worsened (platelets 23,000). Hemoglobin dropped again. 09/16/25 The patient was evaluated at bedside today. She remains intubated, mechanically ventilated, and completely unresponsive without sedation. Her neurologic status continues to show no meaningful clinical neurologic function, however spinal reflex activity (muscle twitching on touch and during repositioning) persists, consistent with spinal cordmediated reflexes, not brain activity. A second neurologist completed a full clinical examination yesterday including cold caloric testing, corneal reflex, gag, cough reflex, pain response, and oculovestibular function: * Some isolated spinal reflex muscle activity was noted * Neurologist conclusion: * Does NOT meet full clinical criteria for brain because minimal brainstem reflex activity was detected * However, overall exam consistent with irreversible catastrophic anoxic brain injury * Radiologic findings remain consistent with brain pattern * Prognosis: extremely poor, essentially non-survivable anoxic injury Family was updated at bedside. They are considering terminal weaning, but request more time and have decided for now to continue FULL CODE, FULL AGGRESSIVE CARE. Patient continues on mechanical ventilation, dialysis-dependent KIMI,and poor neurologic prognosis. 09/17/25 The patient was evaluated at bedside today. She remains intubated, mechanically ventilated, profoundly unresponsive, and off all sedation. Her neurologic status is unchanged , consistent with irreversible catastrophic anoxic brain injury, although she does not meet full clinical criteria for formal brain (as per second neurologist evaluation). She continues to demonstrate intermittent spinal reflex activity (muscle twitching with touch or turning), consistent with spinal cordmediated reflexes. The family continues to deliberate regarding terminal weaning. They have not yet decided on the timing and request additional time. Until a final decision is made, they request FULL CODE and full aggressive support. No new acute events overnight. Hemodynamics remain supported with norepinephrine drip, titrated to maintain SPP > 90 mmHg per updated neuro-critical care plan. The patient is scheduled for hemodialysis today, with UF per nephrology recommendations. No other major changes in clinical condition. 09/18/25 The patient underwent hemodialysis yesterday, with 1.9 liters removed, and tolerated the procedure without acute complications. She remains on norepinephrine (LEVOPHED) infusion 58 mcg/min with blood pressures fluctuating between 116/65 and 90/57 mmHg. Repeat chest X-ray today shows increased interstitial prominence, raising concern for mild pulmonary congestion vs early interstitial edema. Most importantly, after multiple family meetings and extensive discussion with neurology and , the family has decided on terminal weaning tomorrow at 11:00 AM. Full supportive measures and full code status will be continued until the time of terminal weaning. 09/19/25: Patient seen and examined at bedside, had a long family discussion today, patient who is her POA was absent due to work, patient's family was determined and willing after her father coming from [place], 09/20/25 The patient underwent hemodialysis yesterday (09/19/25) with 1.0 L ultrafiltration removed, resulting in improvement in BUN (48 improved), creatinine (3.49 from 4.49), and potassium correction (5.4 - 4.2). She continues on norepinephrine (Levo) at 4 mcg/min for blood pressure support. No acute distress noted. Family meeting conducted today the patients family wishes to proceed with terminal weaning next week once the patients father arrives from [place]. Until then, they request continuation of full aggressive care with full code status. Doxycycline discontinued today as the full antibiotic course has been completed. No new overnight events. 09/21/25 Family states they are still waiting for the patients father to arrive from [place] before deciding on terminal weaning with comfort-focused care. Until then, they request continuation of full code and full aggressive management. Todays labs show worsening azotemia (BUN 64, Cr 4.41), hypernatremia (Na 147) likely from insensible losses and decreased free water intake, anemia with Hgb 8.4, thrombocytosis (platelets 566K), and ABG showing respiratory alkalosis with metabolic alkalosis compensation. Hemodialysis is scheduled for tomorrow per nephrology. Loop diuretics resumed. Tube feeding switched to Nepro formula. Free water boluses q4h through G-tube started. PTH level ordered. Respiratory secretions mild. Vent settings changed: respiratory rate decreased from 15 - 14. No acute overnight events. 09/22/25 Family has not yet finalized decision regarding terminal weaning. They request another [id number] meeting today. * On norepinephrine 46 mcg/min, titrated to maintain SPP > 90 and MAP > 65 Hypernatremia: * Sodium remained elevated at [address] at 153 * Tube-feed free water discontinued. * D5W infusion started at 100 mL/hr for controlled serum sodium reduction. * Strict I/O monitoring in place. 09/23/25 Patient was examined at bedside today. She remains unresponsive, intubated, mechanically ventilated, off all sedation, with no purposeful movements. Prior spinal reflex/twitching may still be present but no new neurologic activity is reported. Hemodynamics remain relatively stable on current ICU support. No reported fevers. Oxygenation and ventilation are stable on unchanged ventilator settings. Langston interval changes today: * Na improved to 142 (from 153 previously) * BUN 45, Cr 3.13 (improved from prior higher values) * CXR: Hazy bilateral opacities unchanged from yesterday; consistent with prior pulmonary congestion/infiltrates. Family / Goals of Care: * Family has confirmed they want terminal weaning but have not yet chosen the exact date. * They do NOT want PEG tube or tracheostomy and decline escalation to those procedures. * They want to continue full code and all current ICU-level medical management (including ventilator, pressors, dialysis, nutrition) except PEG and trach, until terminal weaning is performed. No new procedures today. 09/24/25 Family has not reached a final decision regarding terminal weaning and there is no update today regarding timing. They previously expressed intention to proceed with terminal extubation once decision is finalized, and continue FULL CODE status and ongoing life-support until then. 09/25/25: Patient seen and examined at bedside, Family has not reached a final decision regarding terminal weaning and there is no update today , continue full code status for now. No cough or gag reflex, patient has some decorticate movement. Patient has poor likelihood meaningful recovery, high likelihood demise. 09/26/25: Patient seen and examined at bedside, Family has not reached a final decision regarding terminal weaning and there is no update today , continue full code status for now. No cough or gag reflex, patient has some decorticate movement. Patient has poor likelihood meaningful recovery, high likelihood demise. 09/27/2025: Patient seen in the ICU. She is intubated, not on any sedation, mechanically ventilated, on Levophed. Per nurse, calcium was 13 this morning for which dose of Bumex was given. Labs were significant for elevated WBCs, renal function was mildly improved she is pending dialysis tomorrow, LFTs continue to worsen. Per nurse, greenish-yellow sputum found in the ET tube, sputum culture has been ordered. Family has not reached a final decision regarding terminal weaning at this time. 09/28/25 Patient seen at bedside today. She remains ventilator-dependent, unresponsive, no purposeful activity, consistent with persistent irreversible anoxic brain injury. No sedation used. Vital signs fluctuating but overall hemodynamically stable. Mild tachycardia noted. CBC shows WBC 13 (mild leukocytosis), anemia Hgb 9.2, thrombocytosis 544. CMP notable for hypercalcemia 13.9 (likely immobilization-related); nephrology evaluating, ongoing D5W at 60 mL/hr. Sodium 146, stable. Albumin remains low. AST 897 / ALT 435 / ALP 360 markedly elevated, likely shock/hepatic injury pattern. CXR shows bilateral patchy opacities, unchanged. Family remains aware of prognosis and continues full code, but terminal withdrawal timeline not finalized. Objective vital signs Vital Sign Date Time Temp Pulse Resp B/P (MAP) Pulse Ox O2 Delivery O2 Flow Rate FiO2 09/28/25 12:00 90 20 102/60 (74) 96 30 09/28/25 10:00 Mechanical Ventilator+ 09/28/25 08:00 97.9 97.9 Total Intake and Output 09/27/25 09/27/25 09/28/25 15:00 23:00 07:00 Intake Total 515 ml 457 ml Output Total 600 ml 575 ml Balance -85 ml -118 ml medications Current Medications Medications Dose Ordered Sig/Ese Route Start Time Stop Time Status Last Admin Dose Admin Diagnostic Test (Pha) 1 strip ACHS 09/04/25 07:00 09/28/25 12:32 1 STRIP Insulin Human Regular ACHS SC 09/04/25 07:00 09/28/25 12:33 2 UNITS Dextrose 50 ml UD PRN IV 09/04/25 05:15 Pantoprazole Sodium 40 mg DAILY IV 09/06/25 10:00 09/28/25 09:55 40 MG Artificial Tears 1 drop Q4HP PRN EACHEYE 09/08/25 18:00 09/15/25 02:47 1 DROP Multi-Ingredient Ointment 1 applic DAILY TOP 09/10/25 10:00 09/28/25 09:55 1 APPLIC Norepinephrine Bitartrate 250 ml @ 3.75 mls/hr Q24H IV 09/15/25 08:45 09/28/25 04:52 22.5 MLS/HR Enteral Nutritional Formula 1,000 ml 45ML/HR GT 09/21/25 19:30 09/28/25 03:14 1,000 ML Albumin Human 100 ml @ 100 mls/hr PRN PRN IV 09/22/25 05:45 09/24/25 16:49 100 MLS/HR Bumetanide 1 mg DAILY IV 09/27/25 10:00 09/28/25 09:54 1 MG Doxycycline Hyclate 100 ml @ 50 mls/hr Q12H IV 09/27/25 17:30 09/28/25 05:00 50 MLS/HR Cefepime HCl 50 ml @ 12.5 mls/hr DAILY@2000 IV 09/27/25 20:00 09/27/25 20:25 12.5 MLS/HR Examination General: patient is unresponsive, intubated, mechanically ventilated, on Levophed. HEENT: Normocephalic, atraumatic, dilated unreactive pupils, no extraocular movement, eyelid swelling. conjunctival injection, scleral edema, ET tube in place Respiratory/pulmonary: Bilateral chest expansion, clear lungs bilaterally, vesicular murmurs present in almost all lung cooper, no associated crackles or wheezes, on ventilator with settings of ACVC mode, RR 14, VT 400, FiO2 30%, peep 5 Cardiovascular: Normal RRR, hypotensive when moved Abdomen: Abdomen mildly distended, normal bowel sounds, soft, no grimacing or reaction on palpation Extremities: No deformities, nonpitting edema, pulses are present Skin: patchy petechiae, ecchymosis in various stages of healing, sacral scab. Neurological: GCS 3, pupils 8 mm and fixed bilaterally, no corneal, cough, gag, or oculocephalic reflexes, no spontaneous movement, no withdrawal to pain, rigid upper extremities, nuclear scan consistent with brain , occasional decorticate posturing laboratory and microbiology Laboratory Tests 09/28/25 02:52 Test 09/28/25 02:52 Range/Units Serum Glucose 140 H 74-106 mg/dL Microbiology Date/Time Source Procedure Growth Status 09/27/25 15:00 Trachea Gram Stain - Final Resulted 09/27/25 15:00 Trachea Respiratory Culture - Preliminary Resulted 09/04/25 23:21 Urine - [place] Urine Culture - Final Complete 09/04/25 04:22 Sputum Expectorated Sputum Gram Stain - Final Complete 09/04/25 04:22 Respiratory Culture - Final Staphylococcus aureus Complete 09/04/25 01:40 Blood Blood Culture - Final NO GROWTH AFTER 5 DAYS OF INCUBATION. Complete Problem List/Assessment/Plan Problem List/Assessment/Plan Neurology #Catastrophic, irreversible, severe anoxic brain injury; extremely poor prognosis Metabolic encephalopathy (secondary to anoxic injury) * Imaging consistent with brain * Clinical exam does NOT meet full brain- criteria (minimal brainstem reflex activity) * Spinal reflexes present * Prognosis: terminal # History of anxiety # Questionable Seizure like activity -Neurology on board - Neurology stated poor prognosis * Continue neuro checks Q1H * Maintain normothermia * Avoid hypotension/hypoxia * Nuclear brain perfusion scan consistent with brain * EEG: Severe diffuse cerebral dysfunction consistent with severe hypoxic metabolic encephalopathy For now full code. * Family fully understands prognosis and has chosen comfort-focused withdrawal tomorrow at 11 AM * Second neurologist exam does not meet brain criteria but poor prognosis, family updated * Maintain current ventilatory support Cardiology #Postcardiac arrest state (VF arrest - ROSC) #Mixed cardiogenic + septic shock on norepinephrine # heart failure with reduced ejection fraction likely post cardiac arrest # Dyslipidemia # Non ST-elevation myocardial infarction likely type 2 status post cardiac arrest, type 1 not ruled out -Echo : Conclusion MODERATELY DILATED RV AND IS HYPOKINETIC DYSKINESIS OF IVS RVSP IS 40 MM OF HG AND IS HIGH STUDY CONFIRM RV FAILURE GLOBAL LV HYPOKINESIS LV EF IS 40% AND IS REDUCED NORMAL VALVES NO EFFUSION Maintain SPP (Systolic Perfusion Pressure) > 90 mmHg at all times. * Titrate norepinephrine (LEVOPHED) drip to maintain SPP > 90 mmHg. * Monitor for multi-organ shock progression.* Avoid hypotension to preserve brain perfusion * Cardiology involved * Daily EKG * Trend troponins Given anoxic brain injury, the patient is not a candidate for invasive cardiac work-up as per cardiology continue conservative medical management. * Bradycardia episodes with repositioning move gently Respiratory #Acute hypoxic respiratory failure requiring mechanical ventilation * AC/VC: RR 20 VT 400 FiO2 35% PEEP 5 * VAP bundle * Daily CXR * Oral care Q4H * SBT contraindicated Infectious Disease #MSSA / possible aspiration pneumonia * STOPPED Unasyn today due to allergic rash * continue doxycycline * Continue to monitor rash progression * Monitor sputum, blood, urine cultures * COVID/Flu negative * Sputum cultures sent * Cefepime and Doxycycline started Hematology Microcytic anemia # severe anemia requiring blood transfusion -2 unit of PRBC transfused Started on IV IRON # coagulopathy likely due to sepsis Monitor Thrombocytopenia (Plt 124), resolved * * Hgb stable at 7.5 , Discontinued Heparin, transfuse only if <7 * Platelets normal * DVT prophylaxis: Heparin held due to anemia * Use SCDs Renal * KIMI stage 3 on solitary kidney *Dialysis-dependent renal failure * Continue daily evaluation for kidney replacement therapy. * Avoid nephrotoxins * Daily BMP, Mg, Phos hyperkalemia Corrected #Hypercalcemia - Bumex - Monitor levels # hypernatremia -D5W 60 mL/hr continue # metabolic acidosis due to sepsis Monitor ABG # respiratory alkalosis Improved # hypomagnesemia Monitor Urology # complicated urinary tract infection -on antibiotics # Punctate nonobstructing right renal calculi. Seen on ultrasound # Left nephrectomy. Seen on ultrasound GI Shock liver (AST/ALT markedly elevated) now improving * Continue Nepro tube feeds @ 35 mL/hr * Check residuals Q4H * PPI for ulcer prophylaxis * Monitor stool output Endocrine * Insulin ACHS * Maintain BG [id number] Skin * Stage 1 sacral ulcer * Wound care following * Reposition Q2H * Pencillin hypersensitivity improving Ensure no heparin products (including flushes) STOP Unasyn (done) Start doxycycline (done) Warm compresses to affected areas Reposition Q2H to reduce pressure contribution NO signs of cellulitis (no warmth) Topical emollients (Aquaphor) to reduce skin breakdown Monitor platelets daily OPHTHALMOLOGY * Conjunctival injection, swollen eyelids * Start Lacri-lube eye drops Q6H LINES / TUBES * ETT (09/04) * OG tube * Left femoral central line (09/04) * Sams catheter Right IJ tunneled dialysis catheter (09/09) * Daily line necessity review PROPHYLAXIS * DVT: SCDs only * GI: Pantoprazole * Ulcer: Q2H turns * VAP: oral care, CHG, HOB elevation SOCIAL WORK / FAMILY SUPPORT * Family updated extensively today Family meeting held * Family continues full measures but does not want PEG/TRACH * Awaiting decision/timing for terminal withdrawal * Request continuation of FULL CODE & full aggressive care for now * Social work available for support CODE STATUS FULL CODE Family updated today; despite detailed prognosis counseling, today states that terminal weaning however have not chosen a date for this. CRITICAL CARE TIME 51 minutes of critical care time spent today, excluding procedure time. . DISCUSSION WITH ATTENDING Case reviewed in detail with attending physician Dr Singleton. Management plan jointly agreed upon. including the clinical presentation, diagnostic workup, and comprehensive management plan. The patient's family was present for the discussion and demonstrated understanding of his condition and the proposed plan. Plan discussed with: Spouse, Other (RN) Dietary Evaluation Review Comments: 1. nepro 35/hr providing 68g pro, 1487kcal, 611ml free water, meeting 107% energy needs, 80% protein needs 2. Increase amount of Protein support for wound healing when/if pt's kidney function impvoes. F/U and reassess when pt is off vent and PRN. Expected Outcomes/Goals: Adequate nutrition support for being on mechanical ventilation CC Plasma Assessment Blood Product Administration S: 06:05 Visit Coding STANDARD RES Billing Provider: KEYA SINGLETON MD Date of Service if different f: Sep 28, 2025 Common Visit Codes: [id number] CARE 30-74 MIN Date of Service: Sep 28, 2025 Billing Provider: KEYA SINGLETON MD Common Visit Codes: [id number] CARE 30-74 MIN FRANCIS PRESSLEY Sep 28, 2025 12:50 KEYA SINGLETON MD Sep 29, 2025 11:07
--- NOTE | 2025-09-28 13:14 | DVHPN2 ---
Progress Note Date Seen: Sep 28, 2025 Resident Creating Document: CHIDI BOWERS RESIDENT Has the PT tested + for MRSA If YES, has PT been informed?: No Medical Necessity Reason Pt with a Central, PICC or Fol: Yes The following are medically ne: Central Line, Sams Catheter Subjective Review of Systems Patient seen and examined at the bedside. Unable to obtain ROS due to patient's clinical status intubated and on mechanical ventilation. Objective vital signs Vital Sign Date Time Temp Pulse Resp B/P (MAP) Pulse Ox O2 Delivery O2 Flow Rate FiO2 09/28/25 12:45 92 20 95/59 (71) 96 09/28/25 12:00 98.1 98.1 09/28/25 12:00 Mechanical Ventilator+ 30 30 Total Intake and Output 09/27/25 09/27/25 09/28/25 15:00 23:00 07:00 Intake Total 515 ml 457 ml Output Total 600 ml 575 ml Balance -85 ml -118 ml medications Current Medications Medications Dose Ordered Sig/Ese Route Start Time Stop Time Status Last Admin Dose Admin Diagnostic Test (Pha) 1 strip ACHS 09/04/25 07:00 09/28/25 12:32 1 STRIP Insulin Human Regular ACHS SC 09/04/25 07:00 09/28/25 12:33 2 UNITS Dextrose 50 ml UD PRN IV 09/04/25 05:15 Pantoprazole Sodium 40 mg DAILY IV 09/06/25 10:00 09/28/25 09:55 40 MG Artificial Tears 1 drop Q4HP PRN EACHEYE 09/08/25 18:00 09/15/25 02:47 1 DROP Multi-Ingredient Ointment 1 applic DAILY TOP 09/10/25 10:00 09/28/25 09:55 1 APPLIC Norepinephrine Bitartrate 250 ml @ 3.75 mls/hr Q24H IV 09/15/25 08:45 09/28/25 04:52 22.5 MLS/HR Enteral Nutritional Formula 1,000 ml 45ML/HR GT 09/21/25 19:30 09/28/25 03:14 1,000 ML Albumin Human 100 ml @ 100 mls/hr PRN PRN IV 09/22/25 05:45 09/24/25 16:49 100 MLS/HR Bumetanide 1 mg DAILY IV 09/27/25 10:00 09/28/25 09:54 1 MG Doxycycline Hyclate 100 ml @ 50 mls/hr Q12H IV 09/27/25 17:30 09/28/25 05:00 50 MLS/HR Cefepime HCl 50 ml @ 12.5 mls/hr DAILY@2000 IV 09/27/25 20:00 09/27/25 20:25 12.5 MLS/HR Dextrose 1,000 ml @ 60 mls/hr [id number] IV 09/28/25 13:00 Examination General Appearance: mild distress, Other (Intubated, on vent) HEENT: Atraumatic, PERRLA, Other Lungs: Slightly diminished sounds Cardiovascular: Normal S1, Normal S2 Abdomen: Normal bowel sounds, Soft, No tenderness, No hepatosplenomegaly, No masses Genitourinary: Sams catheter Musculoskeletal: Trace edema Neuro: Unable to assess Skin: Dry, Intact laboratory and microbiology Laboratory Tests 09/28/25 02:52 Test 09/28/25 02:52 Range/Units Serum Glucose 140 H 74-106 mg/dL Microbiology Date/Time Source Procedure Growth Status 09/27/25 15:00 Trachea Gram Stain - Final Resulted 09/27/25 15:00 Trachea Respiratory Culture - Preliminary Resulted 09/04/25 23:21 Urine - Sams Port Urine Culture - Final Complete 09/04/25 04:22 Sputum Expectorated Sputum Gram Stain - Final Complete 09/04/25 04:22 Respiratory Culture - Final Staphylococcus aureus Complete 09/04/25 01:40 Blood Blood Culture - Final NO GROWTH AFTER 5 DAYS OF INCUBATION. Complete Labs and/or images reviewed: Labs reviewed by me, Image(s) reviewed by me Problem List/Assessment/Plan Problem List/Assessment/Plan KIMI, from [facility] due to cardiac arrest requiring hemodialysis Hypernatremia resolved Acute respiratory failure, intubated on ventilator Status post cardiac arrest Anoxic encephalopathy Cardiogenic/septic shock NSTEMI Plan/recommendation: Hemodialysis tomorrow Hyperkalemia resolved Epogen 68855 subQ 3 times weekly Strict I&Os, loop diuretic resumed nepro tube feeding, phos , pth level Monitor urinary output ,improved Vasopressor per primary team Avoid nephrotoxic medication Ct head--anoxic encephalopathy EEG/perfusion scan showed anoxic brain injury, defer to neurology and primary for half-way care and management Poor prognosis Case discussed with the Dr. Oliveira Plan discussed with: Other (rn) Dietary Evaluation Review Comments: 1. nepro 35/hr providing 68g pro, 1487kcal, 611ml free water, meeting 107% energy needs, 80% protein needs 2. Increase amount of Protein support for wound healing when/if pt's kidney function impvoes. F/U and reassess when pt is off vent and PRN. Expected Outcomes/Goals: Adequate nutrition support for being on mechanical ventilation CC Plasma Assessment Blood Product Administration S: 06:05 CHIDI BOWERS RESIDENT Sep 28, 2025 13:14
[2025-09-28] MEDS: D5W 5% 1,000 ML IV SCH (13:38)
--- NOTE | 2025-09-28 15:46 | DVHPN2 ---
Progress Note - Dictate Date Seen: Sep 28, 2025 Has the PT tested + for MRSA If YES, has PT been informed?: No Medical Necessity Reason Pt with a Central, PICC or Fol: Yes The following are medically ne: Central Line, Sams Catheter Subjective Patient was seen and evaluated in follow up in the ICU. Patient is intubated on ventilator. 30% FiO2. WBC 13.0, HGB 9.2, HCT 29.1, NA 14+, BUN 72, Abstract Checker 3.73, CA 13.9, AST 897, ALT 400, Alk Phos 5.39. Chest x-ray shows patchy bilateral airspace opacities are similar to prior study. vital signs Vital Sign Date Time Temp Pulse Resp B/P (MAP) Pulse Ox O2 Delivery O2 Flow Rate FiO2 09/28/25 14:03 94 20 96/55 (69) 96 30 09/28/25 14:00 Mechanical Ventilator+ 09/28/25 12:00 98.1 98.1 Total Intake and Output 09/27/25 09/27/25 09/28/25 15:00 23:00 07:00 Intake Total 515 ml 457 ml Output Total 600 ml 575 ml Balance -85 ml -118 ml medications Current Medications Medications Dose Ordered Sig/Ese Route Start Time Stop Time Status Last Admin Dose Admin Diagnostic Test (Pha) 1 strip ACHS 09/04/25 07:00 09/28/25 12:32 1 STRIP Insulin Human Regular ACHS SC 09/04/25 07:00 09/28/25 12:33 2 UNITS Dextrose 50 ml UD PRN IV 09/04/25 05:15 Pantoprazole Sodium 40 mg DAILY IV 09/06/25 10:00 09/28/25 09:55 40 MG Artificial Tears 1 drop Q4HP PRN EACHEYE 09/08/25 18:00 09/15/25 02:47 1 DROP Multi-Ingredient Ointment 1 applic DAILY TOP 09/10/25 10:00 09/28/25 09:55 1 APPLIC Norepinephrine Bitartrate 250 ml @ 3.75 mls/hr Q24H IV 09/15/25 08:45 09/28/25 04:52 22.5 MLS/HR Enteral Nutritional Formula 1,000 ml 45ML/HR GT 09/21/25 19:30 09/28/25 03:14 1,000 ML Albumin Human 100 ml @ 100 mls/hr PRN PRN IV 09/22/25 05:45 09/24/25 16:49 100 MLS/HR Bumetanide 1 mg DAILY IV 09/27/25 10:00 09/28/25 09:54 1 MG Doxycycline Hyclate 100 ml @ 50 mls/hr Q12H IV 09/27/25 17:30 09/28/25 05:00 50 MLS/HR Cefepime HCl 50 ml @ 12.5 mls/hr DAILY@2000 IV 09/27/25 20:00 09/27/25 20:25 12.5 MLS/HR Dextrose 1,000 ml @ 60 mls/hr [id number] IV 09/28/25 13:00 09/28/25 13:38 60 MLS/HR objective GENERAL: Ill appearing, intubated on ventilator. EYES: PERRL, EOMI. Anicteric. HENT: Moist mucous membranes. LUNGS: Decreased breath sounds. CARDIOVASCULAR: Regular rate and rhythm. ABDOMEN: Soft, nontender and nondistended. EXTREMITIES: No edema. SKIN: Warm, dry. laboratory and microbiology Laboratory Tests 09/28/25 02:52 Test 09/28/25 02:52 Range/Units Serum Glucose 140 H 74-106 mg/dL Problem List Cardiopulmonary arrest with ROSC. Ventricular fibrillation arrest with defibrillation at 100J. Non ST-elevation myocardial infarction. Acute anemia status post blood transfusion (-FOBT). Acute hypoxic respiratory failure. Likely KIMI on CKD. Left nephrectomy. Shocked Liver. Dyslipidemia, newly diagnosed. Cerebral and cerebellar edema, anoxic brain injury. ? Suspected PE with RV failure and PAH. Assessment/Plan Continued all current supportive medical care. Diuretics with Bumex. IV antibiotics as ordered. Vasopressors for hemodynamic support. GI prophylactics. Additional plan as per the hospital course. Critical care time of 45 minutes provided to include time spent evaluation of patient at bedside, when appropriate patient/family education for diagnosis, treatment plan, review of pertinent medical information and discussion of care with specialty providers and PCP. Mechanical ventilator parameters, treatment and adjustments have personally been reviewed by me and treatment plan by computer numerical control machinist has also been reviewed. Dietary Evaluation Review Comments: 1. nepro 35/hr providing 68g pro, 1487kcal, 611ml free water, meeting 107% energy needs, 80% protein needs 2. Increase amount of Protein support for wound healing when/if pt's kidney function impvoes. F/U and reassess when pt is off vent and PRN. Expected Outcomes/Goals: Adequate nutrition support for being on mechanical ventilation Plan discussed with: Other CC Plasma Assessment Blood Product Administration S: 06:05 RISHI SOARES MD Sep 28, 2025 15:46
[2025-09-29] VITALS (108 sets, daily range): BP systolic 88–141; BP diastolic 36–68; PULSE 81–101; RESP 20–23; TEMP 97.8–99.5; O2SAT 90–100
--- NOTE | 2025-09-29 03:35 | DVH ---
CHEST RADIOGRAPH Indication: Acute hypoxic respi failure Technique: Single frontal view of the chest was obtained COMPARISON: XY CHEST PORTABLE on DOS: 09/28/25, XY CHEST XRAY 1 VIEW on DOS: 09/27/25, XY CHEST XRAY 1 VIEW on DOS: 09/26/25, XY CHEST PORTABLE on DOS: 09/25/25, XY CHEST XRAY 1 VIEW on DOS: 09/25/25 FINDINGS: Lines and Tubes: Slight interval advancement of the endotracheal tube such that the tip now projects approximately 1.4 cm above the level of the osmel. Remaining lines and tubes unchanged. Lungs: Grossly stable appearing bilateral lower lung zone pulmonary airspace disease and small right pleural effusion. No pneumothorax. Cardiomediastinal contours: Unremarkable Bones: Unremarkable IMPRESSION: 1. Slight interval advancement of the endotracheal tube such that the tip now projects approximately 1.4 cm above the level of the osmel. Remaining Lines and tubes unchanged. 2. Stable appearing bilateral lower lung zone pulmonary airspace disease and small right pleural effusion.
[2025-09-29 05:49] LABS: Hematocrit 26.2 % (36.0-46.0); Hemoglobin 8.0 g/dL (12.2-16.2); Mean Corpuscular Hemoglobin 22.6 pg (28.0-32.0); Mean Corpuscular Volume 73.9 fL (80.0-100.0); Nucleated Red Blood Cells % 0.5 %
[2025-09-29 06:05] LABS: Albumin 3.4 g/dL (3.2-4.8); Anion Gap 15 (5-15); BUN/Creatinine Ratio 19.4 (10.0-20.0); Carbon Dioxide 25 mmol/L (20-31); Chloride 106 mmol/L (98-107); Potassium 4.1 mmol/L (3.5-5.1); Total Protein 7.4 g/dL (5.7-8.2)
[2025-09-29 06:23] LABS: Sodium 146 mmol/L (136-145)
[2025-09-29 06:24] LABS: Alanine Aminotransferase 421 U/L (7-40); Alkaline Phosphatase 608 U/L (46-116); Glucose 144 mg/dL (74-106)
[2025-09-29 06:25] LABS: Bilirubin, Total 0.2 mg/dL (0.2-1.0); Blood Urea Nitrogen 90 mg/dL (9-23); Calcium 13.7 mg/dL (8.7-10.4)
[2025-09-29 06:46] LABS: Anisocytosis Moderate
--- NOTE | 2025-09-29 07:09 | DVHPN2 ---
Progress Note - Dictate Date Seen: Sep 29, 2025 Has the PT tested + for MRSA If YES, has PT been informed?: No Medical Necessity Reason Pt with a Central, PICC or Fol: Yes The following are medically ne: Central Line, Sams Catheter Subjective Remains comatose vital signs Vital Sign Date Time Temp Pulse Resp B/P (MAP) Pulse Ox O2 Delivery O2 Flow Rate FiO2 09/29/25 06:02 97 20 98/53 (68) 94 35 09/29/25 06:00 Mechanical Ventilator+ 09/29/25 00:00 99.1 99.1 Total Intake and Output 09/28/25 09/28/25 09/29/25 15:00 23:00 07:00 Intake Total 120 ml 1040 ml 860 ml Output Total 750 ml 725 ml Balance 120 ml 290 ml 135 ml medications Current Medications Medications Dose Ordered Sig/Ese Route Start Time Stop Time Status Last Admin Dose Admin Diagnostic Test (Pha) 1 strip ACHS 09/04/25 07:00 09/29/25 06:19 1 STRIP Insulin Human Regular ACHS SC 09/04/25 07:00 09/29/25 06:20 3 UNITS Dextrose 50 ml UD PRN IV 09/04/25 05:15 Pantoprazole Sodium 40 mg DAILY IV 09/06/25 10:00 09/28/25 09:55 40 MG Artificial Tears 1 drop Q4HP PRN EACHEYE 09/08/25 18:00 09/15/25 02:47 1 DROP Multi-Ingredient Ointment 1 applic DAILY TOP 09/10/25 10:00 09/28/25 09:55 1 APPLIC Norepinephrine Bitartrate 250 ml @ 3.75 mls/hr Q24H IV 09/15/25 08:45 09/29/25 03:49 22.5 MLS/HR Enteral Nutritional Formula 1,000 ml 45ML/HR GT 09/21/25 19:30 09/29/25 02:34 1,000 ML Albumin Human 100 ml @ 100 mls/hr PRN PRN IV 09/22/25 05:45 09/24/25 16:49 100 MLS/HR Bumetanide 1 mg DAILY IV 09/27/25 10:00 09/28/25 09:54 1 MG Doxycycline Hyclate 100 ml @ 50 mls/hr Q12H IV 09/27/25 17:30 09/29/25 05:37 50 MLS/HR Cefepime HCl 50 ml @ 12.5 mls/hr DAILY@1999 IV 09/27/25 20:00 09/28/25 19:44 12.5 MLS/HR Dextrose 1,000 ml @ 60 mls/hr [id number] IV 09/28/25 13:00 09/29/25 03:51 60 MLS/HR objective Gen: Intubated, unresponsive lungs: Adequate air exchange cvs: no rub ext: + edema laboratory and microbiology Laboratory Tests 09/29/25 04:30 Test 09/29/25 04:30 Range/Units Serum Glucose 144 H 74-106 mg/dL Assessment/Plan Problem List/Assessment/Plan KIMI, from [facility] (baseline not available), due to cardiac arrest requiring hemodialysis Hyperkalemia Metabolic acidosis Status post cardiac arrest, Anoxic encephalopathy Cardiogenic/septic shock NSTEMI Anxiety and depression Plan/recommendation: - dialysis today - ultrafiltration as tolerated - wally Dietary Evaluation Review Comments: 1. nepro 35/hr providing 68g pro, 1487kcal, 611ml free water, meeting 107% energy needs, 80% protein needs 2. Increase amount of Protein support for wound healing when/if pt's kidney function impvoes. F/U and reassess when pt is off vent and PRN. Expected Outcomes/Goals: Adequate nutrition support for being on mechanical ventilation Plan discussed with: Other CC Plasma Assessment Blood Product Administration S: 06:05 KATHERINE CANTRELL MD Sep 29, 2025 07:09
[2025-09-29 07:19] LABS: Base Excess -0.5 mmol/L (-2.0-3.0)
[2025-09-29] MEDS: SODIUM CHL 0.9% 1000 ML BAG XX ONE (08:15)
--- NOTE | 2025-09-29 09:08 | MEDREC ---
[facility] ASP Intervention Section I [facility] ASP Intervention: Review courses of therapy (PRELIMINARY RESPIRATORY CULTURE POSITIVE FOR YEAST - PLEASE CONSIDER ADDING ANTIFUNGAL IF CLINICALLY RELEVANT ) RAY ANGELES PHARMACIST Sep 29, 2025 09:08
[2025-09-29] MEDS ORDERED: DEXTROSE (50%) 50ML SYRG IV PRN (09:15)
--- NOTE | 2025-09-29 10:30 | DVHPN2 ---
Progress Note - Dictate Date Seen: Sep 29, 2025 Has the PT tested + for MRSA If YES, has PT been informed?: No Medical Necessity Reason Pt with a Central, PICC or Fol: Yes The following are medically ne: Central Line, Sams Catheter Subjective Ms. Murillo is a 40 years old female with a history of kidney stone, depression, anxiety, she was brought to the [facility] on 09/04/2025 with a chief complaint of cardio pulmonary arrest I have seen and examined the patient, talked to her nurse. Blood pressure is better, there was no significant blood pressure drop during reposition. Her pupils are fixed with a left-sided bigger, right: 5 mm, left: 7 mm. No gag reflexes She has spontaneous and touch evoked decerebrate posturing Waiting for family to decide code status Levo 12 mcg/min Urinalysis, 09/04/2025: WBC: 37, urine leukocyte esterase: Negative UDS, 09/04/2025: Negative Plasma alcohol, 09/04/2025: <3 ABG, 09/10/2025: Metabolic acidosis WBC/HB/PLT/MCV, 09/04/2025: 8.8/6.4/260/79.8 PT/INR/ABG, 09/04/2025: 70.4/1.73/ Na, 09/04/2025: 151, 148, 140 K, 09/04/2025: 6.3, 4.6, 3.2 BUN/CR, 09/04/2025: 30/2.69 09/12/25: 60 4/5.45 GFR, 09/12/2025: Nine TBI/AST/ALT/AP, 09/04/2025: 0.11/2481/4030/74, 0.01/5737/2100/93, 09/12/25: 0.2/148/180/165 Glucose, 09/04/2025: 146, 294, 503 HGB A1c, 09/04/2025: 5 Lactic acid, 09/04/2025: 21.1, or 15.2 Troponin one high sensitivity, 09/04/2025: 2769, 5664, 7574 TG/HDL/LDL/HDL, 09/04/2025: 186/86/41/25 Extremity venous study, 09/04/2025: NO SONOGRAPHIC EVIDENCE FOR DEEP VENOUS THROMBOSIS IN THE BILATERAL LOWER EXTREMITY VEINS Cerebral flow, 09/10/2025: Findings likely representing brain however clinical correlation is needed. Chest x-ray, 09/12/2025: Probable small bilateral pleural effusions with mild bibasilar atelectatic changes. CT head, 09/04/25: No acute intracranial abnormality (I saw evidence suggestive of early diffuse brain edema) CT head 09/05/25: Findings are consistent with severe diffuse cerebral and cerebellar edema possibly representing anoxic brain injury. vital signs Vital Sign Date Time Temp Pulse Resp B/P (MAP) Pulse Ox O2 Delivery O2 Flow Rate FiO2 09/29/25 10:00 96 09/29/25 10:00 20 96 Mechanical Ventilator+ 30 30 09/29/25 09:45 111/55 (73) 09/29/25 08:00 99.1 99.1 Total Intake and Output 09/28/25 09/28/25 09/29/25 15:00 23:00 07:00 Intake Total 120 ml 1040 ml 920 ml Output Total 750 ml 725 ml Balance 120 ml 290 ml 195 ml medications Current Medications Medications Dose Ordered Sig/Ese Route Start Time Stop Time Status Last Admin Dose Admin Pantoprazole Sodium 40 mg DAILY IV 09/06/25 10:00 09/29/25 10:12 40 MG Artificial Tears 1 drop Q4HP PRN EACHEYE 09/08/25 18:00 09/15/25 02:47 1 DROP Multi-Ingredient Ointment 1 applic DAILY TOP 09/10/25 10:00 09/29/25 10:12 1 APPLIC Norepinephrine Bitartrate 250 ml @ 3.75 mls/hr Q24H IV 09/15/25 08:45 09/29/25 03:49 22.5 MLS/HR Enteral Nutritional Formula 1,000 ml 45ML/HR GT 09/21/25 19:30 09/29/25 02:34 1,000 ML Albumin Human 100 ml @ 100 mls/hr PRN PRN IV 09/22/25 05:45 09/24/25 16:49 100 MLS/HR Bumetanide 1 mg DAILY IV 09/27/25 10:00 09/28/25 09:54 1 MG Doxycycline Hyclate 100 ml @ 50 mls/hr Q12H IV 09/27/25 17:30 12/9/25 05:37 50 MLS/HR Cefepime HCl 50 ml @ 12.5 mls/hr DAILY@1999 IV 09/27/25 20:00 09/28/25 19:44 12.5 MLS/HR Dextrose 1,000 ml @ 60 mls/hr [id number] IV 09/28/25 13:00 09/29/25 03:51 60 MLS/HR Diagnostic Test (Pha) 1 strip Q6HR 09/29/25 12:00 Insulin Human Regular Q6HR SC 09/29/25 12:00 Dextrose 50 ml UD PRN IV 09/29/25 09:15 objective The patient is well-nourished and well-developed with no distress. The patient is intubated MENTAL STATUS: Nonresponsive stroke painful stimuli CRANIAL NERVES: Pupils are equal, round, and fixed. There are no corneal reflexes and no doll's eyes phenomenon. No signs of facial weakness. There are no gagging or coughing reflexes SENSATION: No responses to strong pain stimuli. MOTOR: Normal muscle bulk. No fasciculations. No spontaneous movement. Increased muscle tone in the left upper extremity. See subjective REFLEXES: Deep tendon reflexes are symmetrical. No pathological reflexes. CEREBELLAR/COORDINATION: Deferred GAIT/STATION: deferred. laboratory and microbiology Laboratory Tests 09/29/25 04:30 Test 09/29/25 04:30 Range/Units Serum Glucose 144 H 74-106 mg/dL Problem List Cardiopulmonary arrest Coma/Metabolic/hypoxic encephalopathy Metabolic acidosis Acute respiratory failure Elevated troponin/heart attack Severe anemia Shocked liver Hypernatremia Increased muscle tone in the left arm Decerebrate posturing Assessment/Plan Monitoring Supportive treatment ICU care Follow up labs Stabilize vitals/pressor drip Respiratory support/vent management Oxygen Antibiotics DVT prophylaxis GI prophylaxis More recommendation per clinical course Poor prognosis for meaningful/overall recovery Family to decide code status This medical document was created using an electronic medical record system with [employer] dictation system. Although this document has been carefully reviewed, there may still be some phonetic and typographical errors. These areas are purely typographical due to imperfections of the software programs, and do not reflect any compromise in the patient's medical care. Prognosis poor Dietary Evaluation Review Comments: 1. nepro 35/hr providing 68g pro, 1487kcal, 611ml free water, meeting 107% energy needs, 80% protein needs 2. Increase amount of Protein support for wound healing when/if pt's kidney function impvoes. F/U and reassess when pt is off vent and PRN. Expected Outcomes/Goals: Adequate nutrition support for being on mechanical ventilation Plan discussed with: Other CC Plasma Assessment Blood Product Administration S: 06:05 ALEXIS DEL ANGEL MD Sep 29, 2025 10:30
[2025-09-29] MEDS: ACCU-CHEK COMFORT CURVE STRIP VI SCH (12:13)
[2025-09-29] MEDS: InsuLIN REG 1unit/0.01ml Soln (100units/ml) SC SCH (12:14)
--- NOTE | 2025-09-29 13:36 | DVH ---
CHEST RADIOGRAPH INDICATION: S/P ETT REPOSITIONING TECHNIQUE: Single frontal view of the chest was obtained COMPARISON: XY CHEST XRAY 1 VIEW on DOS: 09/29/25, XY CHEST PORTABLE on DOS: 09/28/25, XY CHEST XRAY 1 VIEW on DOS: 09/27/25, XY CHEST XRAY 1 VIEW on DOS: 09/26/25, XY CHEST PORTABLE on DOS: 09/25/25 FINDINGS: Lines and Tubes: Endotracheal tube and enteric catheter in satisfactory position. Tunneled right central venous catheter in satisfactory position. Lungs: Unchanged multifocal airspace disease Pleura: Small right pleural effusion. No pneumothorax. Cardiomediastinal contours: Unremarkable Bones: Unremarkable IMPRESSION: Lines and tubes in satisfactory position. No significant interval change.
--- NOTE | 2025-09-29 14:23 | DVHPNRES ---
Progress Note Date Seen: Sep 29, 2025 Resident Creating Document: FRANCIS PRESSLEY RESIDENT Has the PT tested + for MRSA If YES, has PT been informed?: No Medical Necessity Reason Pt with a Central, PICC or Fol: Yes The following are medically ne: Central Line, Sams Catheter Subjective Review of Systems The patient is a 40-year-old female with past medical history of anxiety, UTIs, and kidney stones who presented to [facility] ED for evaluation of cardiac arrest. As reported by EMS/family, patient had cardiac arrest, was asystole 1238 a.m., CPR initiated by family. Patient was initially anxious but was not having any complaints like chest pain or shortness of breath. EMS were on the scene within 5 minutes, CPR continued, patient was given IV fluid, epinephrine x2, became VFib so patient was shocked at 100 joules, Narcan given, became asystole again upon arrival at ER at 0108 hours, blood sugar upon arrival was 43, ROSC obtained at 0112 a.m. Family also reports that patient was depressed for the past 5 years, she has been staying in bed with decreased oral intake, had a fall injury in April resulting in arm and hip fracture. They denied any other significant past medical history. Patient was seen and evaluated in the ED, laboratory data shows WBC 8.8, hemoglobin 6.4, hematocrit 25.0, platelets 260, sodium 151, potassium 6.3, BUN 29, creatinine 2.52, GFR 24, glucose 146, anion gap 28.001, calcium 7.9, lactic acid 21.1 trending down to 15.2, magnesium 4.1, AST 2482, ALT 1430, troponin 2769, BNP 8.48, lipase 31, protein 4.8, albumin 2.7, blood pressure 151/22 trending up to 107/30, heart rate 106, temperature 94.2 F, O2 saturation 97% on ventilator. Head CT showed no acute intracranial abnormality. Patient was started on IV antibiotic regimen vancomycin, please see medication orders section in the computer. On my assessment, patient remains fully intubated, no diaphoresis, no diarrhea, vomiting, no fever. Patient was admitted for further evaluation and medical management. past surgical history; family denies family history: noncontributory past social history: patient lives with the family, denies any smoking, alcohol, drug use 09/06/25: patient seen in ICU. Patient is intubated, on Levophed o, off sedation. Head CT showed diffuse cerebral and cerebellar edema due to anoxic brain injury. neurology following, neurology stated poor prognosis. Kidney functions worsening. Patient's family states before admission patient has seizure-like activity, loss of consciousness which was on and off during the whole day. 09/07/25 40-year-old female in the ICU following cardiopulmonary arrest on 09/04/25, now with severe anoxic brain injury. * Intubated, mechanically ventilated * Off all sedation * No spontaneous movements * No response to pain * No brainstem reflexes: absent corneal, cough, gag, oculocephalic reflexes * Pupils 8 mm, fixed, nonreactive * Family updated todaypoor prognosis discussed, but family chooses FULL CODE and wants everything done Overnight: * Urine output 250 mL total/ 0.15ML/KG/HR * Sams in place, urine [id number] annia * Tube feeds restarted, residuals 15 mL, tolerated * Small bowel movement today * Yamileth-care and sacral wound care performed EEG completed at bedside today for assessment of anoxic injury. Hemodynamics: * On norepinephrine drip for shock Respiratory: * Lungs clear except mild right basal infiltrates Consults: Neurology and Nephrology actively following. 09/08/25 The patient remains critically ill, intubated, mechanically ventilated, and off all sedation since 09/05. Overnight and through today, there continues to be no neurologic improvement. * Mental status unchanged and remains unresponsive/comatose * EEG yesterday inconclusive. Neurology now ordering brain perfusion scan today for brain evaluation * On norepinephrine drip, titrated 8 - 4 mcg/min * CXR today: no major change, persistent bilateral mixed pulmonary opacities and probable small pleural effusions * Oliguria continues * Urine output overnight: 100 mL * Total UO last 24h: 200 mL * Nephrology discontinued Lasix 80 mg BID * Lasix drip started * IR consulted for tunneled dialysis catheter placed today * Plan for hemodialysis/SYSTEMS SOFTWARE SPECIALIST likely tomorrow Patient remains in critical multiorgan dysfunction with severe irreversible anoxic brain injury, worsening renal failure requiring SYSTEMS SOFTWARE SPECIALIST preparation, hemodynamic instability requiring vasopressors, and persistent respiratory failure on the ventilator. No neurologic recovery. Full code per family request. 09/09/25 The patient remains critically ill, intubated, mechanically ventilated, and off all sedation since 09/05. Overnight and through today, there continues to be no neurologic improvement. * Mental status unchanged and remains unresponsive/comatose * EEG yesterday inconclusive . Neurology now ordering brain perfusion scan today for brain evaluation * Oliguria continues * IR consulted tunneled dialysis catheter today * Plan for hemodialysis/SYSTEMS SOFTWARE SPECIALIST likely tomorrow, patient developed b/l upper extremity rash near the right elbow and left antecubital fossa. Patient remains in critical multiorgan dysfunction with severe irreversible anoxic brain injury, worsening renal failure requiring SYSTEMS SOFTWARE SPECIALIST preparation, hemodynamic instability requiring vasopressors, and persistent respiratory failure on the ventilator. No neurologic recovery.Full code per family request. 09/10/25 he patient continues to remain critically ill, unresponsive, mechanically ventilated, off all sedation, with severe anoxic brain injury and no signs of neurologic recovery. Family continues to request FULL CODE and continuation of all aggressive medical care. * Urine output: 0.16 mL/kg/hr (severely oliguric) * Yesterday: Hemodialysis with 700 mL ultrafiltration * Today: Plan for 11.5 L ultrafiltration * Tunneled right IJ permacath placed 09/09 * Lasix drip discontinued * Creatinine 5.9 (improving from 7.58) * Iron studies: * Iron 11 (low),TIBC 204 (low),Saturation 5.4% (severely low),Ferritin 132 * EEG: Severe diffuse cerebral dysfunction consistent with severe hypoxic metabolic encephalopathy * Poor prognosis confirmed by neurology * Brain perfusion nuclear scan scheduled today/tomorrow for brain evaluation * Diffuse purpuric rash spreading over upper extremities and lower extremities * Ecchymosis + petechiae + non-blanching lesions * Rash progression after Unasyn possible beta-lactam hypersensitivity * Unasyn discontinued today * Doxycycline started 09/11/25 The patient was examined at bedside this morning. She remains critically ill, mechanically ventilated, unresponsive, and off all sedation. Today's major update is the nuclear brain perfusion scan showing complete absence of intracranial perfusion with hot-nose sign, radiologically consistent with BRAIN , pending final neurologic confirmation. Family was updated about the extremely poor prognosis; however, they insist on FULL CODE and full aggressive care. * When repositioned, HR drops into 30s returned to baseline after stabilization * SpO2: 98% on FiO2 30% * No fever * Urine output: 0.05 mL/kg/hr (severe oliguria) * HD yesterday removed 1.5 L UF * HD planned again tomorrow 09/12/25 The patient was evaluated at bedside today. She remains intubated, mechanically ventilated, and entirely unresponsive with no sedation on board. Neurology officially confirmed BRAIN today based on: * Absent brainstem reflexes * No spontaneous respiration * Nuclear medicine brain perfusion scan showing complete absence of intracranial perfusion * Clinical brain examination performed and documented This was explained thoroughly to the family. Despite clear communication, the family continues to request FULL CODE status and all aggressive measures, including long-term life support and LTAC placement. A 7th grade social studies teacher/Case Management consult has been placed for LTAC disposition per family request. 09/13/2025 The patient was evaluated today in the ICU. She remains intubated, mechanically ventilated, on Levophed, and unresponsive with no sedation. She is afebrile, normocardic, and with MAP maintained on pressors. Labs today showed drop in Hb to 6.9, for which 1 unit of PRBC was transfused. Creatinine and BUN continue to increase, for which she was dialyzed today. Stool sample were also to evaluate any possible bleeding. Brain has been declared by neurology, family wishes for her to remain FULL CODE at this time. Per Artificial Flowers Supervisor, the patient does not qualify for LTAC placement at this time. We will continue to monitor. 09/14/25 The patient was evaluated at bedside today. She remains intubated and mechanically ventilated, without sedation, unresponsive, and with previously confirmed brain (absent brain perfusion, absent brainstem reflexes, nuclear perfusion scan positive for brain ). She continues to exhibit no neurologic function. Family met at bedside today. The irreversible prognosis and confirmed brain status were reviewed again. Family is currently discussing goals of care but for now insists the patient remain FULL CODE with continued aggressive care, including ongoing mechanical ventilation and dialysis as needed. Overnight Interval Events Hemoglobin dropped to 6.6 1 unit PRBC transfused post-transfusion Hgb 8.7 Dialysis removed 2 L Rash continues to improve No major ventilatory changes Hemodynamics fluctuating but stable with vasopressors 09/15/25 The patient was evaluated at bedside today. She remains intubated, mechanically ventilated, unresponsive without sedation. Neurologically, she continues to exhibit no cerebral or brainstem activity, consistent with previously documented brain on nuclear medicine perfusion study. Important new finding today: Despite clinical brain , the patient demonstrates spinal reflex activity, including: * Muscle twitching in upper extremities * Brief fast fasciculatory movements upon touch * Reflexive limb motion during turning and repositioning These findings are consistent with spinal reflex arcs, not cortical activity, and do not contradict brain physiology. Family has not yet decided regarding withdrawal of care and continues to insist on full aggressive measures. A second neurologist is scheduled for repeat confirmatory brain- exam today. Hemodialysis ongoing, with UF goal 1 L. Rash that developed after Unasyn is improving.Thrombocytopenia worsened (platelets 23,000). Hemoglobin dropped again. 09/16/25 The patient was evaluated at bedside today. She remains intubated, mechanically ventilated, and completely unresponsive without sedation. Her neurologic status continues to show no meaningful clinical neurologic function, however spinal reflex activity (muscle twitching on touch and during repositioning) persists, consistent with spinal cordmediated reflexes, not brain activity. A second neurologist completed a full clinical examination yesterday including cold caloric testing, corneal reflex, gag, cough reflex, pain response, and oculovestibular function: * Some isolated spinal reflex muscle activity was noted * Neurologist conclusion: * Does NOT meet full clinical criteria for brain because minimal brainstem reflex activity was detected * However, overall exam consistent with irreversible catastrophic anoxic brain injury * Radiologic findings remain consistent with brain pattern * Prognosis: extremely poor, essentially non-survivable anoxic injury Family was updated at bedside. They are considering terminal weaning, but request more time and have decided for now to continue FULL CODE, FULL AGGRESSIVE CARE. Patient continues on mechanical ventilation, dialysis-dependent KIMI,and poor neurologic prognosis. 09/17/25 The patient was evaluated at bedside today. She remains intubated, mechanically ventilated, profoundly unresponsive, and off all sedation. Her neurologic status is unchanged , consistent with irreversible catastrophic anoxic brain injury, although she does not meet full clinical criteria for formal brain (as per second neurologist evaluation). She continues to demonstrate intermittent spinal reflex activity (muscle twitching with touch or turning), consistent with spinal cordmediated reflexes. The family continues to deliberate regarding terminal weaning. They have not yet decided on the timing and request additional time. Until a final decision is made, they request FULL CODE and full aggressive support. No new acute events overnight. Hemodynamics remain supported with norepinephrine drip, titrated to maintain SPP > 90 mmHg per updated neuro-critical care plan. The patient is scheduled for hemodialysis today, with UF per nephrology recommendations. No other major changes in clinical condition. 09/18/25 The patient underwent hemodialysis yesterday, with 1.9 liters removed, and tolerated the procedure without acute complications. She remains on norepinephrine (LEVOPHED) infusion 58 mcg/min with blood pressures fluctuating between 116/65 and 90/57 mmHg. Repeat chest X-ray today shows increased interstitial prominence, raising concern for mild pulmonary congestion vs early interstitial edema. Most importantly, after multiple family meetings and extensive discussion with neurology and , the family has decided on terminal weaning tomorrow at 11:00 AM. Full supportive measures and full code status will be continued until the time of terminal weaning. 09/19/25: Patient seen and examined at bedside, had a long family discussion today, patient who is her POA was absent due to work, patient's family was determined and willing after her father coming from [place], 09/20/25 The patient underwent hemodialysis yesterday (09/19/25) with 1.0 L ultrafiltration removed, resulting in improvement in BUN (48 improved), creatinine (3.49 from 4.49), and potassium correction (5.4 - 4.2). She continues on norepinephrine (Levo) at 4 mcg/min for blood pressure support. No acute distress noted. Family meeting conducted today the patients family wishes to proceed with terminal weaning next week once the patients father arrives from [place]. Until then, they request continuation of full aggressive care with full code status. Doxycycline discontinued today as the full antibiotic course has been completed. No new overnight events. 09/21/25 Family states they are still waiting for the patients father to arrive from [place] before deciding on terminal weaning with comfort-focused care. Until then, they request continuation of full code and full aggressive management. Todays labs show worsening azotemia (BUN 64, Cr 4.41), hypernatremia (Na 147) likely from insensible losses and decreased free water intake, anemia with Hgb 8.4, thrombocytosis (platelets 566K), and ABG showing respiratory alkalosis with metabolic alkalosis compensation. Hemodialysis is scheduled for tomorrow per nephrology. Loop diuretics resumed. Tube feeding switched to Nepro formula. Free water boluses q4h through G-tube started. PTH level ordered. Respiratory secretions mild. Vent settings changed: respiratory rate decreased from 15 - 14. No acute overnight events. 09/22/25 Family has not yet finalized decision regarding terminal weaning. They request another [id number] meeting today. * On norepinephrine 46 mcg/min, titrated to maintain SPP > 90 and MAP > 65 Hypernatremia: * Sodium remained elevated at [address] at 153 * Tube-feed free water discontinued. * D5W infusion started at 100 mL/hr for controlled serum sodium reduction. * Strict I/O monitoring in place. 09/23/25 Patient was examined at bedside today. She remains unresponsive, intubated, mechanically ventilated, off all sedation, with no purposeful movements. Prior spinal reflex/twitching may still be present but no new neurologic activity is reported. Hemodynamics remain relatively stable on current ICU support. No reported fevers. Oxygenation and ventilation are stable on unchanged ventilator settings. Langston interval changes today: * Na improved to 142 (from 153 previously) * BUN 45, Cr 3.13 (improved from prior higher values) * CXR: Hazy bilateral opacities unchanged from yesterday; consistent with prior pulmonary congestion/infiltrates. Family / Goals of Care: * Family has confirmed they want terminal weaning but have not yet chosen the exact date. * They do NOT want PEG tube or tracheostomy and decline escalation to those procedures. * They want to continue full code and all current ICU-level medical management (including ventilator, pressors, dialysis, nutrition) except PEG and trach, until terminal weaning is performed. No new procedures today. 09/24/25 Family has not reached a final decision regarding terminal weaning and there is no update today regarding timing. They previously expressed intention to proceed with terminal extubation once decision is finalized, and continue FULL CODE status and ongoing life-support until then. 09/25/25: Patient seen and examined at bedside, Family has not reached a final decision regarding terminal weaning and there is no update today , continue full code status for now. No cough or gag reflex, patient has some decorticate movement. Patient has poor likelihood meaningful recovery, high likelihood demise. 09/26/25: Patient seen and examined at bedside, Family has not reached a final decision regarding terminal weaning and there is no update today , continue full code status for now. No cough or gag reflex, patient has some decorticate movement. Patient has poor likelihood meaningful recovery, high likelihood demise. 09/27/2025: Patient seen in the ICU. She is intubated, not on any sedation, mechanically ventilated, on Levophed. Per nurse, calcium was 13 this morning for which dose of Bumex was given. Labs were significant for elevated WBCs, renal function was mildly improved she is pending dialysis tomorrow, LFTs continue to worsen. Per nurse, greenish-yellow sputum found in the ET tube, sputum culture has been ordered. Family has not reached a final decision regarding terminal weaning at this time. 09/28/25 Patient seen at bedside today. She remains ventilator-dependent, unresponsive, no purposeful activity, consistent with persistent irreversible anoxic brain injury. No sedation used. Vital signs fluctuating but overall hemodynamically stable. Mild tachycardia noted. CBC shows WBC 13 (mild leukocytosis), anemia Hgb 9.2, thrombocytosis 544. CMP notable for hypercalcemia 13.9 (likely immobilization-related); nephrology evaluating, ongoing D5W at 60 mL/hr. Sodium 146, stable. Albumin remains low. AST 897 / ALT 435 / ALP 360 markedly elevated, likely shock/hepatic injury pattern. CXR shows bilateral patchy opacities, unchanged. Family remains aware of prognosis and continues full code, but terminal withdrawal timeline not finalized. 09/29/25 Patient examined at bedside today. She remains ventilator-dependent, unresponsive, without purposeful neurological activity. No sedation administered. Spontaneous spinal reflex/twitch responses persist. Clinical status overall unchanged, however ABG shows new respiratory acidosis with CO2 retention (pH 7.29 / pCO2 54.8) therefore ventilator rate increased from 20 - 22 CXR demonstrates bilateral lower lobe airspace disease + small right pleural effusion. Electrolytes notable for hypercalcemia 13.7, ESRD with worsening BUN 90 / Cr 4.64, and anemia remains stable. Sputum culture rare budding yeast noted likely colonization. Family has confirmed terminal weaning scheduled Sunday 12 PM this week, no PEG, no trach, until then FULL SUPPORT continued. Clinical summary today: New respiratory acidosis vent settings adjusted Hypercalcemia persistent management continued Hemodialysis scheduled for today Terminal withdrawal confirmed for upcoming Sunday at noon Objective vital signs Vital Sign Date Time Temp Pulse Resp B/P (MAP) Pulse Ox O2 Delivery O2 Flow Rate FiO2 09/29/25 13:34 101 20 101/47 (65) 97 30 09/29/25 12:00 Mechanical Ventilator+ 09/29/25 12:00 99.5 99.5 Total Intake and Output 09/28/25 09/28/25 09/29/25 15:00 23:00 07:00 Intake Total 120 ml 1040 ml 920 ml Output Total 750 ml 725 ml Balance 120 ml 290 ml 195 ml medications Current Medications Medications Dose Ordered Sig/Ese Route Start Time Stop Time Status Last Admin Dose Admin Pantoprazole Sodium 40 mg DAILY IV 09/06/25 10:00 09/29/25 10:12 40 MG Artificial Tears 1 drop Q4HP PRN EACHEYE 09/08/25 18:00 09/15/25 02:47 1 DROP Multi-Ingredient Ointment 1 applic DAILY TOP 09/10/25 10:00 09/29/25 10:12 1 APPLIC Norepinephrine Bitartrate 250 ml @ 3.75 mls/hr Q24H IV 09/15/25 08:45 09/29/25 03:49 22.5 MLS/HR Enteral Nutritional Formula 1,000 ml 45ML/HR GT 09/21/25 19:30 09/29/25 02:34 1,000 ML Albumin Human 100 ml @ 100 mls/hr PRN PRN IV 09/22/25 05:45 09/24/25 16:49 100 MLS/HR Bumetanide 1 mg DAILY IV 09/27/25 10:00 09/28/25 09:54 1 MG Doxycycline Hyclate 100 ml @ 50 mls/hr Q12H IV 09/27/25 17:30 09/29/25 05:37 50 MLS/HR Cefepime HCl 50 ml @ 12.5 mls/hr DAILY@2000 IV 09/27/25 20:00 09/28/25 19:44 12.5 MLS/HR Dextrose 1,000 ml @ 60 mls/hr [id number] IV 09/28/25 13:00 09/29/25 03:51 60 MLS/HR Diagnostic Test (Pha) 1 strip Q6HR 09/29/25 12:00 09/29/25 12:13 1 STRIP Insulin Human Regular Q6HR SC 09/29/25 12:00 09/29/25 12:14 2 UNITS Dextrose 50 ml UD PRN IV 09/29/25 09:15 Examination General: patient is unresponsive, intubated, mechanically ventilated, on Levophed. HEENT: Normocephalic, atraumatic, dilated unreactive pupils, no extraocular movement, eyelid swelling. conjunctival injection, scleral edema, ET tube in place Respiratory/pulmonary: Bilateral chest expansion, clear lungs bilaterally, vesicular murmurs present in almost all lung cooper, no associated crackles or wheezes, on ventilator with settings of ACVC mode Cardiovascular: Normal RRR, hypotensive when moved Abdomen: Abdomen mildly distended, normal bowel sounds, soft, no grimacing or reaction on palpation Extremities: No deformities, nonpitting edema, pulses are present Skin: patchy petechiae, ecchymosis in various stages of healing, sacral scab. Neurological: GCS 3, pupils 8 mm and fixed bilaterally, no corneal, cough, gag, or oculocephalic reflexes, no spontaneous movement, no withdrawal to pain, rigid upper extremities, nuclear scan consistent with brain , occasional decorticate posturing laboratory and microbiology Laboratory Tests 09/29/25 04:30 Test 09/29/25 04:30 Range/Units Serum Glucose 144 H 74-106 mg/dL Microbiology Date/Time Source Procedure Growth Status 09/27/25 15:00 Trachea Gram Stain - Final Resulted 09/27/25 15:00 Trachea Respiratory Culture - Preliminary Resulted 09/04/25 23:21 Urine - Sams [place] Urine Culture - Final Complete 09/04/25 04:22 Sputum Expectorated Sputum Gram Stain - Final Complete 09/04/25 04:22 Respiratory Culture - Final Staphylococcus aureus Complete 09/04/25 01:40 Blood Blood Culture - Final NO GROWTH AFTER 5 DAYS OF INCUBATION. Complete Problem List/Assessment/Plan Problem List/Assessment/Plan Neurology #Catastrophic, irreversible, severe anoxic brain injury; extremely poor prognosis Metabolic encephalopathy (secondary to anoxic injury) * Imaging consistent with brain * Clinical exam does NOT meet full brain- criteria (minimal brainstem reflex activity) * Spinal reflexes present * Prognosis: terminal # History of anxiety # Questionable Seizure like activity -Neurology on board - Neurology stated poor prognosis * Continue neuro checks Q1H * Maintain normothermia * Avoid hypotension/hypoxia * Nuclear brain perfusion scan consistent with brain * EEG: Severe diffuse cerebral dysfunction consistent with severe hypoxic metabolic encephalopathy For now full code. * Family fully understands prognosis and has chosen comfort-focused withdrawal tomorrow at 11 AM * Second neurologist exam does not meet brain criteria but poor prognosis, family updated * Maintain current ventilatory support Cardiology #Postcardiac arrest state (VF arrest - ROSC) #Mixed cardiogenic + septic shock on norepinephrine # heart failure with reduced ejection fraction likely post cardiac arrest # Dyslipidemia # Non ST-elevation myocardial infarction likely type 2 status post cardiac arrest, type 1 not ruled out -Echo : Conclusion MODERATELY DILATED RV AND IS HYPOKINETIC DYSKINESIS OF IVS RVSP IS 40 MM OF HG AND IS HIGH STUDY CONFIRM RV FAILURE GLOBAL LV HYPOKINESIS LV EF IS 40% AND IS REDUCED NORMAL VALVES NO EFFUSION Maintain SPP (Systolic Perfusion Pressure) > 90 mmHg at all times. * Titrate norepinephrine (LEVOPHED) drip to maintain SPP > 90 mmHg. * Monitor for multi-organ shock progression.* Avoid hypotension to preserve brain perfusion * Cardiology involved * Daily EKG * Trend troponins Given anoxic brain injury, the patient is not a candidate for invasive cardiac work-up as per cardiology continue conservative medical management. * Bradycardia episodes with repositioning move gently Respiratory #Acute hypoxic respiratory failure requiring mechanical ventilation Respiratory Acidosis secondary to CO2 retention ventilation increased * AC/VC: RR 22 VT 400 FiO2 35% PEEP 5 * VAP bundle * Daily CXR * Oral care Q4H * SBT contraindicated * No trach per family; terminal withdrawal scheduled Sunday Infectious Disease #MSSA / possible aspiration pneumonia Bilateral Pulmonary Infiltrates + R Pleural Effusion * STOPPED Unasyn today due to allergic rash * continue doxycycline * Continue to monitor rash progression * Monitor sputum, blood, urine cultures * COVID/Flu negative * Sputum cultures sent * Cefepime and Doxycycline started * Rare budding yeast in culture likely colonization, monitor * If fever consider antifungal coverage Hematology Microcytic anemia # severe anemia requiring blood transfusion -2 unit of PRBC transfused Started on IV IRON # coagulopathy likely due to sepsis Monitor Thrombocytopenia (Plt 124), resolved * * Hgb stable at 7.5 , Discontinued Heparin, transfuse only if <7 * Platelets normal * DVT prophylaxis: Heparin held due to anemia * Use SCDs Renal * KIMI stage 3 on solitary kidney *Dialysis-dependent renal failure * Continue daily evaluation for kidney replacement therapy. * Avoid nephrotoxins * Daily BMP, Mg, Phos hyperkalemia Corrected #Hypercalcemia - Bumex - Monitor levels * Monitor calcium consider calcitonin if Ca >14 or symptomatic # hypernatremia -D5W 60 mL/hr continue # metabolic acidosis due to sepsis Monitor ABG # respiratory alkalosis Improved # hypomagnesemia Monitor Urology # complicated urinary tract infection resolved # Punctate nonobstructing right renal calculi. Seen on ultrasound # Left nephrectomy. Seen on ultrasound GI Shock liver (AST/ALT markedly elevated) * Continue Nepro tube feeds @ 35 mL/hr * Check residuals Q4H * PPI for ulcer prophylaxis * Monitor stool output Endocrine * Insulin ACHS * Maintain BG [id number] Skin * Stage 1 sacral ulcer * Wound care following * Reposition Q2H * Pencillin hypersensitivity improving Ensure no heparin products (including flushes) STOP Unasyn (done) Start doxycycline (done) Warm compresses to affected areas Reposition Q2H to reduce pressure contribution NO signs of cellulitis (no warmth) Topical emollients (Aquaphor) to reduce skin breakdown Monitor platelets daily OPHTHALMOLOGY * Conjunctival injection, swollen eyelids * Start Lacri-lube eye drops Q6H LINES / TUBES * ETT (09/04) * OG tube * Left femoral central line (09/04) * Sams catheter Right IJ tunneled dialysis catheter (09/09) * Daily line necessity review PROPHYLAXIS * DVT: SCDs only * GI: Pantoprazole * Ulcer: Q2H turns * VAP: oral care, CHG, HOB elevation SOCIAL WORK / FAMILY SUPPORT * Family updated extensively today Family meeting completed. Terminal weaning confirmed for Sunday at 12 PM. Until then, FULL CODE, full support. No PEG, no trach. * Social work available for support CODE STATUS FULL CODE Family meeting completed. Terminal weaning confirmed for Sunday at 12 PM. CRITICAL CARE TIME 84 minutes of critical care time spent today, excluding procedure time. . DISCUSSION WITH ATTENDING Case reviewed in detail with attending physician Dr Singleton. Management plan jointly agreed upon. including the clinical presentation, diagnostic workup, and comprehensive management plan. The patient's family was present for the discussion and demonstrated understanding of his condition and the proposed plan. Plan discussed with: Spouse, Daughter, Other (RN) My Orders My Orders Orders - FRANCIS PRESSLEY RESIDENT Procedure Category Date Status Time Abg W/ Co-Ox RT 09/29/25 Logged 06:00 Respiratory Misc. RT 09/29/25 Transmitted Order 08:42 Chest Portable XY 09/29/25 Resulted 09:02 Glucose Blood PHA 09/29/25 In Process (Accu-Chek Comfort 12:00 Insulin R (Human) PHA 09/29/25 In Process (Insulin R) 12:00 Dextrose 50% Syringe PHA 09/29/25 In Process 09:15 Complete Blood Count LAB 09/30/25 Verified 04:00 Comprehensive LAB 09/30/25 Verified Metabolic Panel 04:00 Chest Xray 1 View XY 09/30/25 Verified 04:00 Dietary Evaluation Review Comments: 1. nepro 35/hr providing 68g pro, 1487kcal, 611ml free water, meeting 107% energy needs, 80% protein needs 2. Increase amount of Protein support for wound healing when/if pt's kidney function impvoes. F/U and reassess when pt is off vent and PRN. Expected Outcomes/Goals: Adequate nutrition support for being on mechanical ventilation CC Plasma Assessment Blood Product Administration S: 06:05 Visit Coding STANDARD RES Billing Provider: KEYA SINGLETON MD Date of Service if different f: Sep 29, 2025 Common Visit Codes: 40819-[id number] CARE 30-74 MIN, 48955-[id number] CARE-EACH +30MIN Date of Service: Sep 29, 2025 Billing Provider: KEYA SINGLETON MD Common Visit Codes: 13396-[id number] CARE 30-74 MIN, 84191-[id number] CARE-EACH +30MIN FRANCIS PRESSLEY RESIDENT Sep 29, 2025 14:23 KEYA SINGLETON MD Sep 30, 2025 14:31
[2025-09-29 18:46] LABS: Base Excess -0.3 mmol/L (-2.0-3.0)
--- NOTE | 2025-09-29 21:20 | DVHPN2 ---
Progress Note - Dictate Date Seen: Sep 29, 2025 Has the PT tested + for MRSA If YES, has PT been informed?: No Medical Necessity Reason Pt with a Central, PICC or Fol: Yes The following are medically ne: Central Line, Sams Catheter Subjective Patient was seen and evaluated in follow up in the ICU. Patient is intubated on ventilator. 30% FiO2. Off sedation. Patient is unresponsive, no purposeful activity, consistent with persistent irreversible anoxic brain injury. Family meeting was held today and they have decided to proceed forward with terminal extubation. WBC 14.6, HGB 8, NA 146, BUN 90, REVIEW ASSISTANT 4.64, CA 13.7, AST 826, ALT 421. Chest x-ray shows no significant interval change. vital signs Vital Sign Date Time Temp Pulse Resp B/P (MAP) Pulse Ox O2 Delivery O2 Flow Rate FiO2 09/29/25 13:34 101 20 101/47 (65) 97 30 09/29/25 12:00 Mechanical Ventilator+ 09/29/25 12:00 99.5 99.5 Total Intake and Output 09/28/25 09/28/25 09/29/25 15:00 23:00 07:00 Intake Total 120 ml 1040 ml 920 ml Output Total 750 ml 725 ml Balance 120 ml 290 ml 195 ml medications Current Medications Medications Dose Ordered Sig/Ese Route Start Time Stop Time Status Last Admin Dose Admin Pantoprazole Sodium 40 mg DAILY IV 09/06/25 10:00 09/29/25 10:12 40 MG Artificial Tears 1 drop Q4HP PRN EACHEYE 09/08/25 18:00 09/15/25 02:47 1 DROP Multi-Ingredient Ointment 1 applic DAILY TOP 09/10/25 10:00 09/29/25 10:12 1 APPLIC Norepinephrine Bitartrate 250 ml @ 3.75 mls/hr Q24H IV 09/15/25 08:45 09/29/25 03:49 22.5 MLS/HR Enteral Nutritional Formula 1,000 ml 45ML/HR GT 09/21/25 19:30 09/29/25 02:34 1,000 ML Albumin Human 100 ml @ 100 mls/hr PRN PRN IV 09/22/25 05:45 09/24/25 16:49 100 MLS/HR Bumetanide 1 mg DAILY IV 09/27/25 10:00 09/28/25 09:54 1 MG Doxycycline Hyclate 100 ml @ 50 mls/hr Q12H IV 09/27/25 17:30 09/29/25 05:37 50 MLS/HR Cefepime HCl 50 ml @ 12.5 mls/hr DAILY@2000 IV 09/27/25 20:00 09/28/25 19:44 12.5 MLS/HR Dextrose 1,000 ml @ 60 mls/hr [id number] IV 09/28/25 13:00 09/29/25 03:51 60 MLS/HR Diagnostic Test (Pha) 1 strip Q6HR 09/29/25 12:00 09/29/25 12:13 1 STRIP Insulin Human Regular Q6HR SC 09/29/25 12:00 09/29/25 12:14 2 UNITS Dextrose 50 ml UD PRN IV 09/29/25 09:15 objective GENERAL: Ill appearing, intubated on ventilator. EYES: PERRL, EOMI. Anicteric. HENT: Moist mucous membranes. LUNGS: Decreased breath sounds. CARDIOVASCULAR: Regular rate and rhythm. ABDOMEN: Soft, nontender and nondistended. EXTREMITIES: No edema. SKIN: Warm, dry. laboratory and microbiology Laboratory Tests 09/29/25 04:30 Test 09/29/25 04:30 Range/Units Serum Glucose 144 H 74-106 mg/dL Problem List Cardiopulmonary arrest with ROSC. Ventricular fibrillation arrest with defibrillation at 100J. Non ST-elevation myocardial infarction. Acute anemia status post blood transfusion (-FOBT). Acute hypoxic respiratory failure. Likely KIMI on CKD. Left nephrectomy. Shocked Liver. Dyslipidemia, newly diagnosed. Cerebral and cerebellar edema, anoxic brain injury. ? Suspected PE with RV failure and PAH. Assessment/Plan Continued all current supportive medical care. Diuretics with Bumex. IV antibiotics as ordered. Vasopressors for hemodynamic support. GI prophylactics. Additional plan as per the hospital course. Critical care time of 45 minutes provided to include time spent evaluation of patient at bedside, when appropriate patient/family education for diagnosis, treatment plan, review of pertinent medical information and discussion of care with specialty providers and PCP. Mechanical ventilator parameters, treatment and adjustments have personally been reviewed by me and treatment plan by safety representative has also been reviewed. Dietary Evaluation Review Comments: 1. nepro 35/hr providing 68g pro, 1487kcal, 611ml free water, meeting 107% energy needs, 80% protein needs 2. Increase amount of Protein support for wound healing when/if pt's kidney function impvoes. F/U and reassess when pt is off vent and PRN. Expected Outcomes/Goals: Adequate nutrition support for being on mechanical ventilation Plan discussed with: Other CC Plasma Assessment Blood Product Administration S: 06:05 RISHI SOARES MD Sep 29, 2025 13:48
[2025-09-29] MEDS: BUMETANIDE 1mg/4ml VIAL (0.25mg/ml) IV SCH (22:07)
[2025-09-30] VITALS (108 sets, daily range): BP systolic 85–137; BP diastolic 41–81; PULSE 16–101; RESP 22–24; TEMP 97.9–98.6; O2SAT 95–100
--- NOTE | 2025-09-30 04:51 | DVH ---
CHEST RADIOGRAPH INDICATION: Acute hypoxic respiratory failure TECHNIQUE: Single frontal view of the chest was obtained COMPARISON: XY CHEST PORTABLE on DOS: 09/29/25, XY CHEST XRAY 1 VIEW on DOS: 09/29/25, XY CHEST PORTABLE on DOS: 09/28/25, XY CHEST XRAY 1 VIEW on DOS: 09/27/25, XY CHEST XRAY 1 VIEW on DOS: 09/26/25 FINDINGS: Lines and Tubes: Unchanged. Lungs: Slight interval progression in bilateral pleural effusions and bibasilar pulmonary airspace disease. No pneumothorax. Cardiomediastinal contours: Unremarkable Bones: Unremarkable IMPRESSION: 1. Slight interval progression in bilateral pleural effusions and bibasilar pulmonary airspace disease. 2. Lines and tubes unchanged.
[2025-09-30 05:08] LABS: Nucleated Red Blood Cells % 0.3 %
[2025-09-30 05:11] LABS: Hematocrit 23.9 % (36.0-46.0); Hemoglobin 7.3 g/dL (12.2-16.2); Mean Corpuscular Hemoglobin 22.6 pg (28.0-32.0); Mean Corpuscular Volume 73.8 fL (80.0-100.0)
[2025-09-30 05:17] LABS: Anion Gap 14 (5-15); BUN/Creatinine Ratio 20.7 (10.0-20.0); Carbon Dioxide 26 mmol/L (20-31); Chloride 103 mmol/L (98-107); Potassium 4.0 mmol/L (3.5-5.1); Sodium 143 mmol/L (136-145); Total Protein 7.3 g/dL (5.7-8.2)
[2025-09-30 05:25] LABS: Alanine Aminotransferase 345 U/L (7-40); Albumin 3.2 g/dL (3.2-4.8); Alkaline Phosphatase 606 U/L (46-116); Bilirubin, Total 0.2 mg/dL (0.2-1.0); Glucose 122 mg/dL (74-106)
[2025-09-30 05:26] LABS: Blood Urea Nitrogen 105 mg/dL (9-23); Calcium 13.6 mg/dL (8.7-10.4)
[2025-09-30 08:20] LABS: Base Excess -0.1 mmol/L (-2.0-3.0)
--- NOTE | 2025-09-30 14:21 | DVHPNRES ---
Progress Note Date Seen: Sep 30, 2025 Resident Creating Document: FRANCIS PRESSLEY RESIDENT Has the PT tested + for MRSA If YES, has PT been informed?: No Medical Necessity Reason Pt with a Central, PICC or Fol: Yes The following are medically ne: Central Line, Sams Catheter Subjective Review of Systems The patient is a 40-year-old female with past medical history of anxiety, UTIs, and kidney stones who presented to [facility] ED for evaluation of cardiac arrest. As reported by EMS/family, patient had cardiac arrest, was asystole 1238 a.m., CPR initiated by family. Patient was initially anxious but was not having any complaints like chest pain or shortness of breath. EMS were on the scene within 5 minutes, CPR continued, patient was given IV fluid, epinephrine x2, became VFib so patient was shocked at 100 joules, Narcan given, became asystole again upon arrival at ER at 0108 hours, blood sugar upon arrival was 43, ROSC obtained at 0112 a.m. Family also reports that patient was depressed for the past 5 years, she has been staying in bed with decreased oral intake, had a fall injury in April resulting in arm and hip fracture. They denied any other significant past medical history. Patient was seen and evaluated in the ED, laboratory data shows WBC 8.8, hemoglobin 6.4, hematocrit 25.0, platelets 260, sodium 151, potassium 6.3, BUN 29, creatinine 2.52, GFR 24, glucose 146, anion gap 28.001, calcium 7.9, lactic acid 21.1 trending down to 15.2, magnesium 4.1, AST 2482, ALT 1430, troponin 2769, BNP 8.48, lipase 31, protein 4.8, albumin 2.7, blood pressure 151/22 trending up to 107/30, heart rate 106, temperature 94.2 F, O2 saturation 97% on ventilator. Head CT showed no acute intracranial abnormality. Patient was started on IV antibiotic regimen vancomycin, please see medication orders section in the computer. On my assessment, patient remains fully intubated, no diaphoresis, no diarrhea, vomiting, no fever. Patient was admitted for further evaluation and medical management. past surgical history; family denies family history: noncontributory past social history: patient lives with the family, denies any smoking, alcohol, drug use 09/06/25: patient seen in ICU. Patient is intubated, on Levophed o, off sedation. Head CT showed diffuse cerebral and cerebellar edema due to anoxic brain injury. neurology following, neurology stated poor prognosis. Kidney functions worsening. Patient's family states before admission patient has seizure-like activity, loss of consciousness which was on and off during the whole day. 09/07/25 40-year-old female in the ICU following cardiopulmonary arrest on 09/04/25, now with severe anoxic brain injury. * Intubated, mechanically ventilated * Off all sedation * No spontaneous movements * No response to pain * No brainstem reflexes: absent corneal, cough, gag, oculocephalic reflexes * Pupils 8 mm, fixed, nonreactive * Family updated todaypoor prognosis discussed, but family chooses FULL CODE and wants everything done Overnight: * Urine output 250 mL total/ 0.15ML/KG/HR * Sams in place, urine [id number] annia * Tube feeds restarted, residuals 15 mL, tolerated * Small bowel movement today * Yamileth-care and sacral wound care performed EEG completed at bedside today for assessment of anoxic injury. Hemodynamics: * On norepinephrine drip for shock Respiratory: * Lungs clear except mild right basal infiltrates Consults: Neurology and Nephrology actively following. 09/08/25 The patient remains critically ill, intubated, mechanically ventilated, and off all sedation since 09/05. Overnight and through today, there continues to be no neurologic improvement. * Mental status unchanged and remains unresponsive/comatose * EEG yesterday inconclusive. Neurology now ordering brain perfusion scan today for brain evaluation * On norepinephrine drip, titrated 8 - 4 mcg/min * CXR today: no major change, persistent bilateral mixed pulmonary opacities and probable small pleural effusions * Oliguria continues * Urine output overnight: 100 mL * Total UO last 24h: 200 mL * Nephrology discontinued Lasix 80 mg BID * Lasix drip started * IR consulted for tunneled dialysis catheter placed today * Plan for hemodialysis/[facility] likely tomorrow Patient remains in critical multiorgan dysfunction with severe irreversible anoxic brain injury, worsening renal failure requiring [facility] preparation, hemodynamic instability requiring vasopressors, and persistent respiratory failure on the ventilator. No neurologic recovery. Full code per family request. 09/09/25 The patient remains critically ill, intubated, mechanically ventilated, and off all sedation since 09/05. Overnight and through today, there continues to be no neurologic improvement. * Mental status unchanged and remains unresponsive/comatose * EEG yesterday inconclusive . Neurology now ordering brain perfusion scan today for brain evaluation * Oliguria continues * IR consulted tunneled dialysis catheter today * Plan for hemodialysis/[facility] likely tomorrow, patient developed b/l upper extremity rash near the right elbow and left antecubital fossa. Patient remains in critical multiorgan dysfunction with severe irreversible anoxic brain injury, worsening renal failure requiring [facility] preparation, hemodynamic instability requiring vasopressors, and persistent respiratory failure on the ventilator. No neurologic recovery.Full code per family request. 09/10/25 he patient continues to remain critically ill, unresponsive, mechanically ventilated, off all sedation, with severe anoxic brain injury and no signs of neurologic recovery. Family continues to request FULL CODE and continuation of all aggressive medical care. * Urine output: 0.16 mL/kg/hr (severely oliguric) * Yesterday: Hemodialysis with 700 mL ultrafiltration * Today: Plan for 11.5 L ultrafiltration * Tunneled right IJ permacath placed 09/09 * Lasix drip discontinued * Creatinine 5.9 (improving from 7.58) * Iron studies: * Iron 11 (low),TIBC 204 (low),Saturation 5.4% (severely low),Ferritin 132 * EEG: Severe diffuse cerebral dysfunction consistent with severe hypoxic metabolic encephalopathy * Poor prognosis confirmed by neurology * Brain perfusion nuclear scan scheduled today/tomorrow for brain evaluation * Diffuse purpuric rash spreading over upper extremities and lower extremities * Ecchymosis + petechiae + non-blanching lesions * Rash progression after Unasyn possible beta-lactam hypersensitivity * Unasyn discontinued today * Doxycycline started 09/11/25 The patient was examined at bedside this morning. She remains critically ill, mechanically ventilated, unresponsive, and off all sedation. Today's major update is the nuclear brain perfusion scan showing complete absence of intracranial perfusion with hot-nose sign, radiologically consistent with BRAIN , pending final neurologic confirmation. Family was updated about the extremely poor prognosis; however, they insist on FULL CODE and full aggressive care. * When repositioned, HR drops into 30s returned to baseline after stabilization * SpO2: 98% on FiO2 30% * No fever * Urine output: 0.05 mL/kg/hr (severe oliguria) * HD yesterday removed 1.5 L UF * HD planned again tomorrow 09/12/25 The patient was evaluated at bedside today. She remains intubated, mechanically ventilated, and entirely unresponsive with no sedation on board. Neurology officially confirmed BRAIN today based on: * Absent brainstem reflexes * No spontaneous respiration * Nuclear medicine brain perfusion scan showing complete absence of intracranial perfusion * Clinical brain examination performed and documented This was explained thoroughly to the family. Despite clear communication, the family continues to request FULL CODE status and all aggressive measures, including long-term life support and LTAC placement. A manager social/Case Management consult has been placed for LTAC disposition per family request. 09/13/2025 The patient was evaluated today in the ICU. She remains intubated, mechanically ventilated, on Levophed, and unresponsive with no sedation. She is afebrile, normocardic, and with MAP maintained on pressors. Labs today showed drop in Hb to 6.9, for which 1 unit of PRBC was transfused. Creatinine and BUN continue to increase, for which she was dialyzed today. Stool sample were also to evaluate any possible bleeding. Brain has been declared by neurology, family wishes for her to remain FULL CODE at this time. Per Research And Development Manager, the patient does not qualify for LTAC placement at this time. We will continue to monitor. 09/14/25 The patient was evaluated at bedside today. She remains intubated and mechanically ventilated, without sedation, unresponsive, and with previously confirmed brain (absent brain perfusion, absent brainstem reflexes, nuclear perfusion scan positive for brain ). She continues to exhibit no neurologic function. Family met at bedside today. The irreversible prognosis and confirmed brain status were reviewed again. Family is currently discussing goals of care but for now insists the patient remain FULL CODE with continued aggressive care, including ongoing mechanical ventilation and dialysis as needed. Overnight Interval Events Hemoglobin dropped to 6.6 1 unit PRBC transfused post-transfusion Hgb 8.7 Dialysis removed 2 L Rash continues to improve No major ventilatory changes Hemodynamics fluctuating but stable with vasopressors 09/15/25 The patient was evaluated at bedside today. She remains intubated, mechanically ventilated, unresponsive without sedation. Neurologically, she continues to exhibit no cerebral or brainstem activity, consistent with previously documented brain on nuclear medicine perfusion study. Important new finding today: Despite clinical brain , the patient demonstrates spinal reflex activity, including: * Muscle twitching in upper extremities * Brief fast fasciculatory movements upon touch * Reflexive limb motion during turning and repositioning These findings are consistent with spinal reflex arcs, not cortical activity, and do not contradict brain physiology. Family has not yet decided regarding withdrawal of care and continues to insist on full aggressive measures. A second neurologist is scheduled for repeat confirmatory brain- exam today. Hemodialysis ongoing, with UF goal 1 L. Rash that developed after Unasyn is improving.Thrombocytopenia worsened (platelets 23,000). Hemoglobin dropped again. 09/16/25 The patient was evaluated at bedside today. She remains intubated, mechanically ventilated, and completely unresponsive without sedation. Her neurologic status continues to show no meaningful clinical neurologic function, however spinal reflex activity (muscle twitching on touch and during repositioning) persists, consistent with spinal cordmediated reflexes, not brain activity. A second neurologist completed a full clinical examination yesterday including cold caloric testing, corneal reflex, gag, cough reflex, pain response, and oculovestibular function: * Some isolated spinal reflex muscle activity was noted * Neurologist conclusion: * Does NOT meet full clinical criteria for brain because minimal brainstem reflex activity was detected * However, overall exam consistent with irreversible catastrophic anoxic brain injury * Radiologic findings remain consistent with brain pattern * Prognosis: extremely poor, essentially non-survivable anoxic injury Family was updated at bedside. They are considering terminal weaning, but request more time and have decided for now to continue FULL CODE, FULL AGGRESSIVE CARE. Patient continues on mechanical ventilation, dialysis-dependent KIMI,and poor neurologic prognosis. 09/17/25 The patient was evaluated at bedside today. She remains intubated, mechanically ventilated, profoundly unresponsive, and off all sedation. Her neurologic status is unchanged , consistent with irreversible catastrophic anoxic brain injury, although she does not meet full clinical criteria for formal brain (as per second neurologist evaluation). She continues to demonstrate intermittent spinal reflex activity (muscle twitching with touch or turning), consistent with spinal cordmediated reflexes. The family continues to deliberate regarding terminal weaning. They have not yet decided on the timing and request additional time. Until a final decision is made, they request FULL CODE and full aggressive support. No new acute events overnight. Hemodynamics remain supported with norepinephrine drip, titrated to maintain SPP > 90 mmHg per updated neuro-critical care plan. The patient is scheduled for hemodialysis today, with UF per nephrology recommendations. No other major changes in clinical condition. 09/18/25 The patient underwent hemodialysis yesterday, with 1.9 liters removed, and tolerated the procedure without acute complications. She remains on norepinephrine (LEVOPHED) infusion 58 mcg/min with blood pressures fluctuating between 116/65 and 90/57 mmHg. Repeat chest X-ray today shows increased interstitial prominence, raising concern for mild pulmonary congestion vs early interstitial edema. Most importantly, after multiple family meetings and extensive discussion with neurology and , the family has decided on terminal weaning tomorrow at 11:00 AM. Full supportive measures and full code status will be continued until the time of terminal weaning. 09/19/25: Patient seen and examined at bedside, had a long family discussion today, patient who is her POA was absent due to work, patient's family was determined and willing after her father coming from [place], 09/20/25 The patient underwent hemodialysis yesterday (09/19/25) with 1.0 L ultrafiltration removed, resulting in improvement in BUN (48 improved), creatinine (3.49 from 4.49), and potassium correction (5.4 - 4.2). She continues on norepinephrine (Levo) at 4 mcg/min for blood pressure support. No acute distress noted. Family meeting conducted today the patients family wishes to proceed with terminal weaning next week once the patients father arrives from [place]. Until then, they request continuation of full aggressive care with full code status. Doxycycline discontinued today as the full antibiotic course has been completed. No new overnight events. 09/21/25 Family states they are still waiting for the patients father to arrive from [place] before deciding on terminal weaning with comfort-focused care. Until then, they request continuation of full code and full aggressive management. Todays labs show worsening azotemia (BUN 64, Cr 4.41), hypernatremia (Na 147) likely from insensible losses and decreased free water intake, anemia with Hgb 8.4, thrombocytosis (platelets 566K), and ABG showing respiratory alkalosis with metabolic alkalosis compensation. Hemodialysis is scheduled for tomorrow per nephrology. Loop diuretics resumed. Tube feeding switched to Nepro formula. Free water boluses q4h through G-tube started. PTH level ordered. Respiratory secretions mild. Vent settings changed: respiratory rate decreased from 15 - 14. No acute overnight events. 09/22/25 Family has not yet finalized decision regarding terminal weaning. They request another [id number] meeting today. * On norepinephrine 46 mcg/min, titrated to maintain SPP > 90 and MAP > 65 Hypernatremia: * Sodium remained elevated at [address] at 153 * Tube-feed free water discontinued. * D5W infusion started at 100 mL/hr for controlled serum sodium reduction. * Strict I/O monitoring in place. 09/23/25 Patient was examined at bedside today. She remains unresponsive, intubated, mechanically ventilated, off all sedation, with no purposeful movements. Prior spinal reflex/twitching may still be present but no new neurologic activity is reported. Hemodynamics remain relatively stable on current ICU support. No reported fevers. Oxygenation and ventilation are stable on unchanged ventilator settings. Langston interval changes today: * Na improved to 142 (from 153 previously) * BUN 45, Cr 3.13 (improved from prior higher values) * CXR: Hazy bilateral opacities unchanged from yesterday; consistent with prior pulmonary congestion/infiltrates. Family / Goals of Care: * Family has confirmed they want terminal weaning but have not yet chosen the exact date. * They do NOT want PEG tube or tracheostomy and decline escalation to those procedures. * They want to continue full code and all current ICU-level medical management (including ventilator, pressors, dialysis, nutrition) except PEG and trach, until terminal weaning is performed. No new procedures today. 09/24/25 Family has not reached a final decision regarding terminal weaning and there is no update today regarding timing. They previously expressed intention to proceed with terminal extubation once decision is finalized, and continue FULL CODE status and ongoing life-support until then. 09/25/25: Patient seen and examined at bedside, Family has not reached a final decision regarding terminal weaning and there is no update today , continue full code status for now. No cough or gag reflex, patient has some decorticate movement. Patient has poor likelihood meaningful recovery, high likelihood demise. 09/26/25: Patient seen and examined at bedside, Family has not reached a final decision regarding terminal weaning and there is no update today , continue full code status for now. No cough or gag reflex, patient has some decorticate movement. Patient has poor likelihood meaningful recovery, high likelihood demise. 09/27/2025: Patient seen in the ICU. She is intubated, not on any sedation, mechanically ventilated, on Levophed. Per nurse, calcium was 13 this morning for which dose of Bumex was given. Labs were significant for elevated WBCs, renal function was mildly improved she is pending dialysis tomorrow, LFTs continue to worsen. Per nurse, greenish-yellow sputum found in the ET tube, sputum culture has been ordered. Family has not reached a final decision regarding terminal weaning at this time. 09/28/25 Patient seen at bedside today. She remains ventilator-dependent, unresponsive, no purposeful activity, consistent with persistent irreversible anoxic brain injury. No sedation used. Vital signs fluctuating but overall hemodynamically stable. Mild tachycardia noted. CBC shows WBC 13 (mild leukocytosis), anemia Hgb 9.2, thrombocytosis 544. CMP notable for hypercalcemia 13.9 (likely immobilization-related); nephrology evaluating, ongoing D5W at 60 mL/hr. Sodium 146, stable. Albumin remains low. AST 897 / ALT 435 / ALP 360 markedly elevated, likely shock/hepatic injury pattern. CXR shows bilateral patchy opacities, unchanged. Family remains aware of prognosis and continues full code, but terminal withdrawal timeline not finalized. 09/29/25 Patient examined at bedside today. She remains ventilator-dependent, unresponsive, without purposeful neurological activity. No sedation administered. Spontaneous spinal reflex/twitch responses persist. Clinical status overall unchanged, however ABG shows new respiratory acidosis with CO2 retention (pH 7.29 / pCO2 54.8) therefore ventilator rate increased from 20 - 22 CXR demonstrates bilateral lower lobe airspace disease + small right pleural effusion. Electrolytes notable for hypercalcemia 13.7, ESRD with worsening BUN 90 / Cr 4.64, and anemia remains stable. Sputum culture rare budding yeast noted likely colonization. Family has confirmed terminal weaning scheduled Sunday 12 PM this week, no PEG, no trach, until then FULL SUPPORT continued. Clinical summary today: New respiratory acidosis vent settings adjusted Hypercalcemia persistent management continued Hemodialysis scheduled for today Terminal withdrawal confirmed for upcoming Sunday at noon 09/30/25 Overnight, no acute events reported. Hemodynamics stable on current support. No fever. The patient remains ventilator-dependent with unchanged ventilator settings and stable oxygenation.. Fluids: D5W discontinued in the setting of improved sodium. Renal: Hemodialysis scheduled for tomorrow (10/01/25) for solute control and fluid balance. Plan of care: Family confirms terminal weaning scheduled Thursday, October 02, 2025 at 12 PM. Until then, patient will continue receiving FULL SUPPORT, excluding PEG or tracheostomy per family wishes. No major clinical deterioration today; overall status remains poor Objective vital signs Vital Sign Date Time Temp Pulse Resp B/P (MAP) Pulse Ox O2 Delivery O2 Flow Rate FiO2 09/30/25 14:00 35 09/30/25 14:00 22 99 Mechanical Ventilator+ 09/30/25 13:45 92 103/58 (73) 09/30/25 12:00 98.4 98.4 Total Intake and Output 09/29/25 09/29/25 09/30/25 15:00 23:00 07:00 Intake Total 580 ml 1040 ml 1075 ml Output Total 950 ml 1050 ml Balance 580 ml 90 ml 25 ml medications Current Medications Medications Dose Ordered Sig/Ese Route Start Time Stop Time Status Last Admin Dose Admin Pantoprazole Sodium 40 mg DAILY IV 09/06/25 10:00 09/30/25 11:07 40 MG Artificial Tears 1 drop Q4HP PRN EACHEYE 09/08/25 18:00 09/15/25 02:47 1 DROP Multi-Ingredient Ointment 1 applic DAILY TOP 09/10/25 10:00 09/30/25 11:08 1 APPLIC Norepinephrine Bitartrate 250 ml @ 3.75 mls/hr Q24H IV 09/15/25 08:45 09/30/25 01:16 18.75 MLS/HR Enteral Nutritional Formula 1,000 ml 45ML/HR GT 09/21/25 19:30 09/30/25 01:05 1,000 ML Albumin Human 100 ml @ 100 mls/hr PRN PRN IV 09/22/25 05:45 09/24/25 16:49 100 MLS/HR Doxycycline Hyclate 100 ml @ 50 mls/hr Q12H IV 09/27/25 17:30 09/30/25 05:22 50 MLS/HR Cefepime HCl 50 ml @ 12.5 mls/hr DAILY@2000 IV 09/27/25 20:00 09/29/25 22:05 12.5 MLS/HR Dextrose 1,000 ml @ 60 mls/hr [id number] IV 09/28/25 13:00 09/29/25 21:01 60 MLS/HR Diagnostic Test (Pha) 1 strip Q6HR 09/29/25 12:00 09/30/25 11:34 1 STRIP Insulin Human Regular Q6HR SC 09/29/25 12:00 09/30/25 11:35 2 UNITS Dextrose 50 ml UD PRN IV 09/29/25 09:15 Bumetanide 1 mg DAILY IV 09/29/25 22:00 09/30/25 11:08 1 MG Examination General: patient is unresponsive, intubated, mechanically ventilated, on Levophed. HEENT: Normocephalic, atraumatic, dilated unreactive pupils, no extraocular movement, eyelid swelling. conjunctival injection, scleral edema, ET tube in place Respiratory/pulmonary: Bilateral chest expansion, clear lungs bilaterally, vesicular murmurs present in almost all lung cooper, no associated crackles or wheezes, on ventilator with settings of ACVC mode Cardiovascular: Normal RRR, hypotensive when moved Abdomen: Abdomen mildly distended, normal bowel sounds, soft, no grimacing or reaction on palpation Extremities: No deformities, nonpitting edema, pulses are present Skin: patchy petechiae, ecchymosis in various stages of healing, sacral scab. Neurological: GCS 3, pupils 8 mm and fixed bilaterally, no corneal, cough, gag, or oculocephalic reflexes, no spontaneous movement, no withdrawal to pain, rigid upper extremities, nuclear scan consistent with brain , occasional decorticate posturing laboratory and microbiology Laboratory Tests 09/30/25 03:35 Test 09/30/25 03:35 Range/Units Serum Glucose 122 H 74-106 mg/dL Microbiology Date/Time Source Procedure Growth Status 09/27/25 15:00 Trachea Gram Stain - Final Complete 09/27/25 15:00 Respiratory Culture - Final Presumptive Mary Carmen albicans Complete 09/04/25 23:21 Urine - Sams [place] Urine Culture - Final Complete 09/04/25 04:22 Sputum Expectorated Sputum Gram Stain - Final Complete 09/04/25 04:22 Respiratory Culture - Final Staphylococcus aureus Complete 09/04/25 01:40 Blood Blood Culture - Final NO GROWTH AFTER 5 DAYS OF INCUBATION. Complete Problem List/Assessment/Plan Problem List/Assessment/Plan Neurology #Catastrophic, irreversible, severe anoxic brain injury; extremely poor prognosis Metabolic encephalopathy (secondary to anoxic injury) * Imaging consistent with brain * Clinical exam does NOT meet full brain- criteria (minimal brainstem reflex activity) * Spinal reflexes present * Prognosis: terminal # History of anxiety # Questionable Seizure like activity -Neurology on board - Neurology stated poor prognosis * Continue neuro checks Q1H * Maintain normothermia * Avoid hypotension/hypoxia * Nuclear brain perfusion scan consistent with brain * EEG: Severe diffuse cerebral dysfunction consistent with severe hypoxic metabolic encephalopathy For now full code. * Family fully understands prognosis and has chosen comfort-focused withdrawal tomorrow at 11 AM * Second neurologist exam does not meet brain criteria but poor prognosis, family updated * Maintain current ventilatory support Cardiology #Postcardiac arrest state (VF arrest - ROSC) #Mixed cardiogenic + septic shock on norepinephrine # heart failure with reduced ejection fraction likely post cardiac arrest # Dyslipidemia # Non ST-elevation myocardial infarction likely type 2 status post cardiac arrest, type 1 not ruled out -Echo : Conclusion MODERATELY DILATED RV AND IS HYPOKINETIC DYSKINESIS OF IVS RVSP IS 40 MM OF HG AND IS HIGH STUDY CONFIRM RV FAILURE GLOBAL LV HYPOKINESIS LV EF IS 40% AND IS REDUCED NORMAL VALVES NO EFFUSION Maintain SPP (Systolic Perfusion Pressure) > 90 mmHg at all times. * Titrate norepinephrine (LEVOPHED) drip to maintain SPP > 90 mmHg. * Monitor for multi-organ shock progression.* Avoid hypotension to preserve brain perfusion * Cardiology involved * Daily EKG * Trend troponins Given anoxic brain injury, the patient is not a candidate for invasive cardiac work-up as per cardiology continue conservative medical management. * Bradycardia episodes with repositioning move gently Respiratory #Acute hypoxic respiratory failure requiring mechanical ventilation Respiratory Acidosis secondary to CO2 retention ventilation increased * AC/VC: RR 22 VT 400 FiO2 35% PEEP 5 * VAP bundle * Daily CXR * Oral care Q4H * SBT contraindicated * No trach per family; terminal withdrawal scheduled Sunday Infectious Disease #MSSA / possible aspiration pneumonia Bilateral Pulmonary Infiltrates + R Pleural Effusion * STOPPED Unasyn today due to allergic rash * continue doxycycline * Continue to monitor rash progression * Monitor sputum, blood, urine cultures * COVID/Flu negative * Sputum cultures sent * Cefepime and Doxycycline started * Rare budding yeast in culture likely colonization, monitor * If fever consider antifungal coverage Hematology Microcytic anemia # severe anemia requiring blood transfusion -2 unit of PRBC transfused Started on IV IRON # coagulopathy likely due to sepsis Monitor Thrombocytopenia (Plt 124), resolved * * Hgb stable at 7.5 , Discontinued Heparin, transfuse only if <7 * Platelets normal * DVT prophylaxis: Heparin held due to anemia * Use SCDs Renal * KIMI stage 3 on solitary kidney *Dialysis-dependent renal failure * Continue daily evaluation for kidney replacement therapy. * Avoid nephrotoxins * Daily BMP, Mg, Phos hyperkalemia Corrected #Hypercalcemia - Bumex - Monitor levels * Monitor calcium consider calcitonin if Ca >14 or symptomatic # hypernatremia improved -D5W 60 mL/hr discontinued today due to improved Na # metabolic acidosis due to sepsis Monitor ABG # respiratory alkalosis Improved # hypomagnesemia Monitor Urology # complicated urinary tract infection resolved # Punctate nonobstructing right renal calculi. Seen on ultrasound # Left nephrectomy. Seen on ultrasound GI Shock liver (AST/ALT markedly elevated) * Continue Nepro tube feeds @ 35 mL/hr * Check residuals Q4H * PPI for ulcer prophylaxis * Monitor stool output Endocrine * Insulin ACHS * Maintain BG [id number] Skin * Stage 1 sacral ulcer * Wound care following * Reposition Q2H * Pencillin hypersensitivity improving Ensure no heparin products (including flushes) STOP Unasyn (done) Start doxycycline (done) Warm compresses to affected areas Reposition Q2H to reduce pressure contribution NO signs of cellulitis (no warmth) Topical emollients (Aquaphor) to reduce skin breakdown Monitor platelets daily OPHTHALMOLOGY * Conjunctival injection, swollen eyelids * Start Lacri-lube eye drops Q6H LINES / TUBES * ETT (09/04) * OG tube * Left femoral central line (09/04) * Sams catheter Right IJ tunneled dialysis catheter (09/09) * Daily line necessity review PROPHYLAXIS * DVT: SCDs only * GI: Pantoprazole * Ulcer: Q2H turns * VAP: oral care, CHG, HOB elevation SOCIAL WORK / FAMILY SUPPORT * Family updated extensively today Family meeting completed. Terminal weaning confirmed for Sunday at 12 PM. Until then, FULL CODE, full support. No PEG, no trach. * Social work available for support CODE STATUS FULL CODE Family meeting completed. Terminal weaning confirmed for Sunday at 12 PM. CRITICAL CARE TIME 53 minutes of critical care time spent today, excluding procedure time. . DISCUSSION WITH ATTENDING Case reviewed in detail with attending physician Dr Singleton. Management plan jointly agreed upon. including the clinical presentation, diagnostic workup, and comprehensive management plan. The patient's family was present for the discussion and demonstrated understanding of his condition and the proposed plan. Plan discussed with: Spouse, Daughter (RN) My Orders My Orders Orders - FRANCIS PRESSLEY RESIDENT Procedure Category Date Status Time Chest Xray 1 View XY 09/30/25 Resulted 04:00 Bumetanide Injection PHA 09/29/25 In Process (Bumex Injection) 22:00 Ventilator Orders RT 09/29/25 Transmitted 16:23 Abg W/ Co-Ox RT 09/29/25 Logged 18:00 Abg W/ Co-Ox RT 09/30/25 Logged 06:00 Dietary Evaluation Review Comments: 1. nepro 35/hr providing 68g pro, 1487kcal, 611ml free water, meeting 107% energy needs, 80% protein needs 2. Increase amount of Protein support for wound healing when/if pt's kidney function impvoes. F/U and reassess when pt is off vent and PRN. Expected Outcomes/Goals: Adequate nutrition support for being on mechanical ventilation CC Plasma Assessment Blood Product Administration S: 06:05 Visit Coding STANDARD RES Billing Provider: KEYA SINGLETON MD Date of Service if different f: Sep 30, 2025 Common Visit Codes: 23786-[id number] CARE 30-74 MIN FRANCIS PRESSLEY Sep 30, 2025 14:21 KEYA SINGLETON MD Oct 01, 2025 11:24
--- NOTE | 2025-09-30 15:36 | DVHPN2 ---
Progress Note Date Seen: Sep 30, 2025 Resident Creating Document: CHIDI BOWERS RESIDENT Has the PT tested + for MRSA If YES, has PT been informed?: No Medical Necessity Reason Pt with a Central, PICC or Fol: Yes The following are medically ne: Central Line, Sams Catheter Subjective Review of Systems Patient seen and examined at the bedside. Unable to obtain ROS due to patient's clinical status. Objective vital signs Vital Sign Date Time Temp Pulse Resp B/P (MAP) Pulse Ox O2 Delivery O2 Flow Rate FiO2 09/30/25 14:30 92 23 112/66 (81) 100 09/30/25 14:25 35 09/30/25 14:00 Mechanical Ventilator+ 09/30/25 12:00 98.4 98.4 Total Intake and Output 09/29/25 09/29/25 09/30/25 15:00 23:00 07:00 Intake Total 580 ml 1040 ml 1075 ml Output Total 950 ml 1050 ml Balance 580 ml 90 ml 25 ml medications Current Medications Medications Dose Ordered Sig/Ese Route Start Time Stop Time Status Last Admin Dose Admin Pantoprazole Sodium 40 mg DAILY IV 09/06/25 10:00 09/30/25 11:07 40 MG Artificial Tears 1 drop Q4HP PRN EACHEYE 09/08/25 18:00 09/15/25 02:47 1 DROP Multi-Ingredient Ointment 1 applic DAILY TOP 09/10/25 10:00 09/30/25 11:08 1 APPLIC Norepinephrine Bitartrate 250 ml @ 3.75 mls/hr Q24H IV 09/15/25 08:45 09/30/25 01:16 18.75 MLS/HR Enteral Nutritional Formula 1,000 ml 45ML/HR GT 09/21/25 19:30 09/30/25 01:05 1,000 ML Albumin Human 100 ml @ 100 mls/hr PRN PRN IV 09/22/25 05:45 09/24/25 16:49 100 MLS/HR Doxycycline Hyclate 100 ml @ 50 mls/hr Q12H IV 09/27/25 17:30 09/30/25 05:22 50 MLS/HR Cefepime HCl 50 ml @ 12.5 mls/hr DAILY@2000 IV 09/27/25 20:00 09/29/25 22:05 12.5 MLS/HR Diagnostic Test (Pha) 1 strip Q6HR 09/29/25 12:00 09/30/25 11:34 1 STRIP Insulin Human Regular Q6HR SC 09/29/25 12:00 09/30/25 11:35 2 UNITS Dextrose 50 ml UD PRN IV 09/29/25 09:15 Bumetanide 1 mg DAILY IV 09/29/25 22:00 09/30/25 11:08 1 MG Examination General Appearance: mild distress, Other (Intubated, on vent) HEENT: Atraumatic, PERRLA, Other Lungs: Slightly diminished sounds Cardiovascular: Normal S1, Normal S2 Abdomen: Normal bowel sounds, Soft, No tenderness, No hepatosplenomegaly, No masses Genitourinary: Sams catheter Musculoskeletal: Trace edema Neuro: Unable to assess Skin: Dry, Intact laboratory and microbiology Laboratory Tests 09/30/25 03:35 Test 09/30/25 03:35 Range/Units Serum Glucose 122 H 74-106 mg/dL Microbiology Date/Time Source Procedure Growth Status 09/27/25 15:00 Trachea Gram Stain - Final Complete 09/27/25 15:00 Respiratory Culture - Final Presumptive Mary Carmen albicans Complete 09/04/25 23:21 Urine - Sams Port Urine Culture - Final Complete 09/04/25 04:22 Sputum Expectorated Sputum Gram Stain - Final Complete 09/04/25 04:22 Respiratory Culture - Final Staphylococcus aureus Complete 09/04/25 01:40 Blood Blood Culture - Final NO GROWTH AFTER 5 DAYS OF INCUBATION. Complete Labs and/or images reviewed: Labs reviewed by me, Image(s) reviewed by me Problem List/Assessment/Plan Problem List/Assessment/Plan KIMI, from [facility] due to cardiac arrest requiring hemodialysis Hypernatremia resolved Acute respiratory failure, intubated on ventilator Status post cardiac arrest Anoxic encephalopathy Cardiogenic/septic shock NSTEMI Plan/recommendation: Hemodialysis tomorrow Hyperkalemia resolved Epogen 03331 subQ 3 times weekly Strict I&Os, loop diuretic resumed nepro tube feeding, phos , pth level Monitor urinary output ,improved Vasopressor per primary team Avoid nephrotoxic medication Ct head--anoxic encephalopathy EEG/perfusion scan showed anoxic brain injury, defer to neurology and primary for fci care and management Poor prognosis Case discussed with the Dr. Oliveira Plan discussed with: Daughter, Other (rn) Dietary Evaluation Review Comments: 1. nepro 35/hr providing 68g pro, 1487kcal, 611ml free water, meeting 107% energy needs, 80% protein needs 2. Increase amount of Protein support for wound healing when/if pt's kidney function impvoes. F/U and reassess when pt is off vent and PRN. Expected Outcomes/Goals: Adequate nutrition support for being on mechanical ventilation CC Plasma Assessment Blood Product Administration S: 06:05 CHIDI BOWERS RESIDENT Sep 30, 2025 15:36
--- NOTE | 2025-09-30 18:49 | DVHPN2 ---
Progress Note - Dictate Date Seen: Sep 30, 2025 Has the PT tested + for MRSA If YES, has PT been informed?: No Medical Necessity Reason Pt with a Central, PICC or Fol: Yes The following are medically ne: Central Line, Sams Catheter Subjective No clinical changes noted, patient seen earlier this morning vital signs Vital Sign Date Time Temp Pulse Resp B/P (MAP) Pulse Ox O2 Delivery O2 Flow Rate FiO2 09/30/25 18:35 106/60 09/30/25 16:19 91 22 99 35 09/30/25 16:00 Mechanical Ventilator+ 09/30/25 16:00 98.2 98.2 Total Intake and Output 09/29/25 09/29/25 09/30/25 15:00 23:00 07:00 Intake Total 580 ml 1040 ml 1075 ml Output Total 950 ml 1050 ml Balance 580 ml 90 ml 25 ml medications Current Medications Medications Dose Ordered Sig/Ese Route Start Time Stop Time Status Last Admin Dose Admin Pantoprazole Sodium 40 mg DAILY IV 09/06/25 10:00 09/30/25 11:07 40 MG Artificial Tears 1 drop Q4HP PRN EACHEYE 09/08/25 18:00 09/15/25 02:47 1 DROP Multi-Ingredient Ointment 1 applic DAILY TOP 09/10/25 10:00 09/30/25 11:08 1 APPLIC Norepinephrine Bitartrate 250 ml @ 3.75 mls/hr Q24H IV 09/15/25 08:45 09/30/25 18:35 18.75 MLS/HR Enteral Nutritional Formula 1,000 ml 45ML/HR GT 09/21/25 19:30 09/30/25 01:05 1,000 ML Albumin Human 100 ml @ 100 mls/hr PRN PRN IV 09/22/25 05:45 09/24/25 16:49 100 MLS/HR Doxycycline Hyclate 100 ml @ 50 mls/hr Q12H IV 09/27/25 17:30 09/30/25 18:34 50 MLS/HR Cefepime HCl 50 ml @ 12.5 mls/hr DAILY@2000 IV 09/27/25 20:00 09/29/25 22:05 12.5 MLS/HR Diagnostic Test (Pha) 1 strip Q6HR 09/29/25 12:00 09/30/25 18:34 1 STRIP Insulin Human Regular Q6HR SC 09/29/25 12:00 09/30/25 11:35 2 UNITS Dextrose 50 ml UD PRN IV 09/29/25 09:15 Bumetanide 1 mg DAILY IV 09/29/25 22:00 09/30/25 11:08 1 MG objective Gen: Intubated, unresponsive lungs: Adequate air exchange cvs: no rub ext: + edema laboratory and microbiology Laboratory Tests 09/30/25 03:35 Test 09/30/25 03:35 Range/Units Serum Glucose 122 H 74-106 mg/dL Assessment/Plan Problem List/Assessment/Plan KIMI, from [facility] (baseline not available), due to cardiac arrest requiring hemodialysis Hyperkalemia Metabolic acidosis Status post cardiac arrest, Anoxic encephalopathy Cardiogenic/septic shock NSTEMI Anxiety and depression Plan/recommendation: - dialysis tentatively October 01 - repeat basic chemistry panel in a.m. - urine output slightly increased/ responsive to diuretic, We will monitor for any signs of meaningful kidney recovery. Dietary Evaluation Review Comments: 1. nepro 35/hr providing 68g pro, 1487kcal, 611ml free water, meeting 107% energy needs, 80% protein needs 2. Increase amount of Protein support for wound healing when/if pt's kidney function impvoes. F/U and reassess when pt is off vent and PRN. Expected Outcomes/Goals: Adequate nutrition support for being on mechanical ventilation Plan discussed with: Other CC Plasma Assessment Blood Product Administration S: 06:05 KATHERINE CANTRELL MD Sep 30, 2025 18:49
--- NOTE | 2025-09-30 20:38 | DVHPN2 ---
Progress Note - Dictate Date Seen: Sep 30, 2025 Has the PT tested + for MRSA If YES, has PT been informed?: No Medical Necessity Reason Pt with a Central, PICC or Fol: Yes The following are medically ne: Central Line, Sams Catheter Subjective Ms. Murillo is a 40 years old female with a history of kidney stone, depression, anxiety, she was brought to the [facility] on 09/04/2025 with a chief complaint of cardio pulmonary arrest I have seen and examined the patient, talked to her nurse. He remained non responsiveness. Her pupils are fixed with a left-sided bigger, right: 5 mm, left: 6-7 mm. No gag reflexes She has spontaneous and touch evoked decerebrate posturing Waiting for family to decide code status Levo 10mcg/min Urinalysis, 09/04/2025: WBC: 37, urine leukocyte esterase: Negative UDS, 09/04/2025: Negative Plasma alcohol, 09/04/2025: <3 ABG, 09/10/2025: Metabolic acidosis WBC/HB/PLT/MCV, 09/04/2025: 8.8/6.4/260/79.8 PT/INR/ABG, 09/04/2025: 70.4/1.73/ Na, 09/04/2025: 151, 148, 140 K, 09/04/2025: 6.3, 4.6, 3.2 BUN/CR, 09/04/2025: 30/2.69 09/12/25: 60 4/5.45 GFR, 09/12/2025: Nine TBI/AST/ALT/AP, 09/04/2025: 0.11/2481/4030/74, 0.01/5737/2100/93, 09/12/25: 0.2/148/180/165 Glucose, 09/04/2025: 146, 294, 503 HGB A1c, 09/04/2025: 5 Lactic acid, 09/04/2025: 21.1, or 15.2 Troponin one high sensitivity, 09/04/2025: 2769, 5664, 7574 TG/HDL/LDL/HDL, 09/04/2025: 186/86/41/25 Extremity venous study, 09/04/2025: NO SONOGRAPHIC EVIDENCE FOR DEEP VENOUS THROMBOSIS IN THE BILATERAL LOWER EXTREMITY VEINS Cerebral flow, 09/10/2025: Findings likely representing brain however clinical correlation is needed. Chest x-ray, 09/12/2025: Probable small bilateral pleural effusions with mild bibasilar atelectatic changes. CT head, 09/04/25: No acute intracranial abnormality (I saw evidence suggestive of early diffuse brain edema) CT head 09/05/25: Findings are consistent with severe diffuse cerebral and cerebellar edema possibly representing anoxic brain injury. vital signs Vital Sign Date Time Temp Pulse Resp B/P (MAP) Pulse Ox O2 Delivery O2 Flow Rate FiO2 09/30/25 20:30 91 22 101/56 (71) 97 09/30/25 20:06 35 09/30/25 20:00 98.3 98.3 09/30/25 20:00 Mechanical Ventilator+ Total Intake and Output 09/29/25 09/29/25 09/30/25 15:00 23:00 07:00 Intake Total 580 ml 1040 ml 1075 ml Output Total 950 ml 1050 ml Balance 580 ml 90 ml 25 ml medications Current Medications Medications Dose Ordered Sig/Ese Route Start Time Stop Time Status Last Admin Dose Admin Pantoprazole Sodium 40 mg DAILY IV 09/06/25 10:00 09/30/25 11:07 40 MG Artificial Tears 1 drop Q4HP PRN EACHEYE 09/08/25 18:00 09/15/25 02:47 1 DROP Multi-Ingredient Ointment 1 applic DAILY TOP 09/10/25 10:00 09/30/25 11:08 1 APPLIC Norepinephrine Bitartrate 250 ml @ 3.75 mls/hr Q24H IV 09/15/25 08:45 09/30/25 18:35 18.75 MLS/HR Enteral Nutritional Formula 1,000 ml 45ML/HR GT 09/21/25 19:30 09/30/25 01:05 1,000 ML Albumin Human 100 ml @ 100 mls/hr PRN PRN IV 09/22/25 05:45 09/24/25 16:49 100 MLS/HR Doxycycline Hyclate 100 ml @ 50 mls/hr Q12H IV 09/27/25 17:30 09/30/25 18:34 50 MLS/HR Cefepime HCl 50 ml @ 12.5 mls/hr DAILY@2000 IV 09/27/25 20:00 09/29/25 22:05 12.5 MLS/HR Diagnostic Test (Pha) 1 strip Q6HR 09/29/25 12:00 09/30/25 18:34 1 STRIP Insulin Human Regular Q6HR SC 09/29/25 12:00 09/30/25 18:53 2 UNITS Dextrose 50 ml UD PRN IV 09/29/25 09:15 Bumetanide 1 mg DAILY IV 09/29/25 22:00 09/30/25 11:08 1 MG objective The patient is well-nourished and well-developed with no distress. The patient is intubated MENTAL STATUS: Nonresponsive stroke painful stimuli CRANIAL NERVES: Pupils are equal, round, and fixed. There are no corneal reflexes and no doll's eyes phenomenon. No signs of facial weakness. There are no gagging or coughing reflexes SENSATION: No responses to strong pain stimuli. MOTOR: Normal muscle bulk. No fasciculations. No spontaneous movement. Increased muscle tone in the left upper extremity. See subjective REFLEXES: Deep tendon reflexes are symmetrical. No pathological reflexes. CEREBELLAR/COORDINATION: Deferred GAIT/STATION: deferred. laboratory and microbiology Laboratory Tests 09/30/25 03:35 Test 09/30/25 03:35 Range/Units Serum Glucose 122 H 74-106 mg/dL Problem List Cardiopulmonary arrest Coma/Metabolic/hypoxic encephalopathy Metabolic acidosis Acute respiratory failure Elevated troponin/heart attack Severe anemia Shocked liver Hypernatremia Increased muscle tone in the left arm Decerebrate posturing Assessment/Plan Monitoring Supportive treatment ICU care Follow up labs Stabilize vitals/pressor drip Respiratory support/vent management Oxygen Antibiotics DVT prophylaxis GI prophylaxis More recommendation per clinical course Poor prognosis for meaningful/overall recovery Family to decide code status This medical document was created using an electronic medical record system with [employer] dictation system. Although this document has been carefully reviewed, there may still be some phonetic and typographical errors. These areas are purely typographical due to imperfections of the software programs, and do not reflect any compromise in the patient's medical care. Prognosis poor Dietary Evaluation Review Comments: 1. nepro 35/hr providing 68g pro, 1487kcal, 611ml free water, meeting 107% energy needs, 80% protein needs 2. Increase amount of Protein support for wound healing when/if pt's kidney function impvoes. F/U and reassess when pt is off vent and PRN. Expected Outcomes/Goals: Adequate nutrition support for being on mechanical ventilation Plan discussed with: Other CC Plasma Assessment Blood Product Administration S: 06:05 ALEXIS DEL ANGEL MD Sep 30, 2025 20:38
--- NOTE | 2025-09-30 23:52 | DVHPN2 ---
Progress Note - Dictate Date Seen: Sep 30, 2025 Has the PT tested + for MRSA If YES, has PT been informed?: No Medical Necessity Reason Pt with a Central, PICC or Fol: Yes The following are medically ne: Central Line, Sams Catheter Subjective Patient was seen and evaluated in follow up in the ICU. Patient is intubated on ventilator. 35% FiO2. Spontaneous spinal reflex/twitch responses persist. Terminal withdrawal confirmed this upcoming Sunday at noon. WBC 14, HGB 7.3, HCT 23.9, BUN 105, DEPUTY DIRECTOR OF PUBLIC WORKS 5.07, CA 13.6, AST 532, ALT 345. Chest x-ray shows bilateral lower lobe airspace disease + small right pleural effusion. vital signs Vital Sign Date Time Temp Pulse Resp B/P (MAP) Pulse Ox O2 Delivery O2 Flow Rate FiO2 09/30/25 11:50 91 22 110/60 (77) 99 35 09/30/25 10:00 Mechanical Ventilator+ 09/30/25 04:00 98.2 98.2 Total Intake and Output 09/29/25 09/29/25 09/30/25 15:00 23:00 07:00 Intake Total 580 ml 1040 ml 1075 ml Output Total 950 ml 1050 ml Balance 580 ml 90 ml 25 ml medications Current Medications Medications Dose Ordered Sig/Ese Route Start Time Stop Time Status Last Admin Dose Admin Pantoprazole Sodium 40 mg DAILY IV 09/06/25 10:00 09/30/25 11:07 40 MG Artificial Tears 1 drop Q4HP PRN EACHEYE 09/08/25 18:00 09/15/25 02:47 1 DROP Multi-Ingredient Ointment 1 applic DAILY TOP 09/10/25 10:00 09/30/25 11:08 1 APPLIC Norepinephrine Bitartrate 250 ml @ 3.75 mls/hr Q24H IV 09/15/25 08:45 09/30/25 01:16 18.75 MLS/HR Enteral Nutritional Formula 1,000 ml 45ML/HR GT 09/21/25 19:30 09/30/25 01:05 1,000 ML Albumin Human 100 ml @ 100 mls/hr PRN PRN IV 09/22/25 05:45 09/24/25 16:49 100 MLS/HR Doxycycline Hyclate 100 ml @ 50 mls/hr Q12H IV 09/27/25 17:30 09/30/25 05:22 50 MLS/HR Cefepime HCl 50 ml @ 12.5 mls/hr DAILY@2000 IV 09/27/25 20:00 09/29/25 22:05 12.5 MLS/HR Dextrose 1,000 ml @ 60 mls/hr [id number] IV 09/28/25 13:00 09/29/25 21:01 60 MLS/HR Diagnostic Test (Pha) 1 strip Q6HR 09/29/25 12:00 09/30/25 11:34 1 STRIP Insulin Human Regular Q6HR SC 09/29/25 12:00 09/30/25 11:35 2 UNITS Dextrose 50 ml UD PRN IV 09/29/25 09:15 Bumetanide 1 mg DAILY IV 09/29/25 22:00 09/30/25 11:08 1 MG objective GENERAL: Ill appearing, intubated on ventilator. EYES: PERRL, EOMI. Anicteric. HENT: Moist mucous membranes. LUNGS: Decreased breath sounds. CARDIOVASCULAR: Regular rate and rhythm. ABDOMEN: Soft, nontender and nondistended. EXTREMITIES: No edema. SKIN: Warm, dry. laboratory and microbiology Laboratory Tests 09/30/25 03:35 Test 09/30/25 03:35 Range/Units Serum Glucose 122 H 74-106 mg/dL Problem List Cardiopulmonary arrest with ROSC. Ventricular fibrillation arrest with defibrillation at 100J. Non ST-elevation myocardial infarction. Acute anemia status post blood transfusion (-FOBT). Acute hypoxic respiratory failure. Likely KIMI on CKD. Left nephrectomy. Shocked Liver. Dyslipidemia, newly diagnosed. Cerebral and cerebellar edema, anoxic brain injury. ? Suspected PE with RV failure and PAH. Assessment/Plan Continued all current supportive medical care. Diuretics with Bumex. IV antibiotics as ordered. Vasopressors for hemodynamic support. GI prophylactics. Additional plan as per the hospital course. Critical care time of 45 minutes provided to include time spent evaluation of patient at bedside, when appropriate patient/family education for diagnosis, treatment plan, review of pertinent medical information and discussion of care with specialty providers and PCP. Mechanical ventilator parameters, treatment and adjustments have personally been reviewed by me and treatment plan by legal file clerk has also been reviewed. Dietary Evaluation Review Comments: 1. nepro 35/hr providing 68g pro, 1487kcal, 611ml free water, meeting 107% energy needs, 80% protein needs 2. Increase amount of Protein support for wound healing when/if pt's kidney function impvoes. F/U and reassess when pt is off vent and PRN. Expected Outcomes/Goals: Adequate nutrition support for being on mechanical ventilation Plan discussed with: Other CC Plasma Assessment Blood Product Administration S: 06:05 RISHI SOARES MD Sep 30, 2025 12:34
[2025-10-01] VITALS (109 sets, daily range): BP systolic 80–132; BP diastolic 42–81; PULSE 92–107; RESP 22–24; TEMP 97.3–99.5; O2SAT 90–100
--- NOTE | 2025-10-01 05:49 | DVH ---
CHEST RADIOGRAPH INDICATION: intubated TECHNIQUE: 1 view COMPARISON: XY CHEST XRAY 1 VIEW on DOS: 09/30/25, XY CHEST PORTABLE on DOS: 09/29/25, XY CHEST XRAY 1 VIEW on DOS: 09/29/25, XY CHEST PORTABLE on DOS: 09/28/25, XY CHEST XRAY 1 VIEW on DOS: 09/27/25 FINDINGS: Lines and Tubes: Unchanged. Lungs/Pleura: Unchanged. Cardiomediastinum: Unchanged. Other: Unchanged osseous structures. IMPRESSION: 1. No significant change from the previous study. Stable support devices. Mixed pulmonary opacities in the mid to lower lungs with small pleural effusions.
[2025-10-01 07:52] LABS: Base Excess -1.4 mmol/L (-2.0-3.0)
--- NOTE | 2025-10-01 10:59 | DVHPN2 ---
Progress Note Date Seen: Oct 01, 2025 Resident Creating Document: CHIDI BOWERS RESIDENT Has the PT tested + for MRSA If YES, has PT been informed?: No Medical Necessity Reason Pt with a Central, PICC or Fol: Yes The following are medically ne: Central Line, Sams Catheter Subjective Patient reports: No new complaints Changes from previous H/P or p: No Changes Objective vital signs Vital Sign Date Time Temp Pulse Resp B/P (MAP) Pulse Ox O2 Delivery O2 Flow Rate FiO2 10/01/25 10:15 100 23 113/69 (84) 97 10/01/25 10:00 35 10/01/25 10:00 Mechanical Ventilator+ 10/01/25 08:00 99.5 99.5 Total Intake and Output 09/30/25 09/30/25 10/01/25 15:00 23:00 07:00 Intake Total 640 ml 536 ml Output Total 1500 ml 1200 ml Balance -860 ml -664 ml medications Current Medications Medications Dose Ordered Sig/Ese Route Start Time Stop Time Status Last Admin Dose Admin Pantoprazole Sodium 40 mg DAILY IV 09/06/25 10:00 10/01/25 08:37 40 MG Artificial Tears 1 drop Q4HP PRN EACHEYE 09/08/25 18:00 09/15/25 02:47 1 DROP Multi-Ingredient Ointment 1 applic DAILY TOP 09/10/25 10:00 10/01/25 08:37 1 APPLIC Norepinephrine Bitartrate 250 ml @ 3.75 mls/hr Q24H IV 09/15/25 08:45 10/01/25 09:20 24.375 MLS/HR Enteral Nutritional Formula 1,000 ml 45ML/HR GT 09/21/25 19:30 10/01/25 05:13 1,000 ML Albumin Human 100 ml @ 100 mls/hr PRN PRN IV 09/22/25 05:45 09/24/25 16:49 100 MLS/HR Doxycycline Hyclate 100 ml @ 50 mls/hr Q12H IV 09/27/25 17:30 10/01/25 05:13 50 MLS/HR Cefepime HCl 50 ml @ 12.5 mls/hr DAILY@2000 IV 09/27/25 20:00 09/30/25 21:01 12.5 MLS/HR Diagnostic Test (Pha) 1 strip Q6HR 09/29/25 12:00 10/01/25 05:17 1 STRIP Insulin Human Regular Q6HR SC 09/29/25 12:00 09/30/25 18:53 2 UNITS Dextrose 50 ml UD PRN IV 09/29/25 09:15 Bumetanide 1 mg DAILY IV 09/29/25 22:00 09/30/25 11:08 1 MG Examination General Appearance: mild distress, Other (Intubated, on vent) HEENT: Atraumatic, PERRLA, Other Lungs: Slightly diminished sounds Cardiovascular: Normal S1, Normal S2 Abdomen: Normal bowel sounds, Soft, No tenderness, No hepatosplenomegaly, No masses Genitourinary: Sams catheter Musculoskeletal: Trace edema Neuro: Unable to assess Skin: Dry, Intact laboratory and microbiology Laboratory Tests 09/30/25 03:35 Test 09/30/25 03:35 Range/Units Serum Glucose 122 H 74-106 mg/dL Microbiology Date/Time Source Procedure Growth Status 09/27/25 15:00 Trachea Gram Stain - Final Complete 09/27/25 15:00 Respiratory Culture - Final Presumptive Mary Carmen albicans Complete 09/04/25 23:21 Urine - Sams [place] Urine Culture - Final Complete 09/04/25 04:22 Sputum Expectorated Sputum Gram Stain - Final Complete 09/04/25 04:22 Respiratory Culture - Final Staphylococcus aureus Complete 09/04/25 01:40 Blood Blood Culture - Final NO GROWTH AFTER 5 DAYS OF INCUBATION. Complete Labs and/or images reviewed: Labs reviewed by me, Image(s) reviewed by me Problem List/Assessment/Plan Problem List/Assessment/Plan KIMI, from [facility] due to cardiac arrest requiring hemodialysis Hypernatremia resolved Acute respiratory failure, intubated on ventilator Status post cardiac arrest Anoxic encephalopathy Cardiogenic/septic shock NSTEMI Plan/recommendation: Hemodialysis hold for now because of good urine output Hyperkalemia resolved Epogen 25485 subQ 3 times weekly Strict I&Os, loop diuretic resumed nepro tube feeding, phos , pth level Monitor urinary output ,improved Vasopressor per primary team Avoid nephrotoxic medication Ct head--anoxic encephalopathy EEG/perfusion scan showed anoxic brain injury, defer to neurology and primary for [facility] care and management Poor prognosis Case discussed with the Dr. Oliveira Plan discussed with: Daughter, Other (rn) Dietary Evaluation Review Comments: 1. nepro 35/hr providing 68g pro, 1487kcal, 611ml free water, meeting 107% energy needs, 80% protein needs 2. Increase amount of Protein support for wound healing when/if pt's kidney function impvoes. F/U and reassess when pt is off vent and PRN. Expected Outcomes/Goals: Adequate nutrition support for being on mechanical ventilation CC Plasma Assessment Blood Product Administration S: 06:05 CHIDI BOWERS RESIDENT Oct 01, 2025 10:59
--- NOTE | 2025-10-01 12:30 | DVHPNRES ---
Progress Note Date Seen: Oct 01, 2025 Resident Creating Document: FRANCIS PRESSLEY RESIDENT Has the PT tested + for MRSA If YES, has PT been informed?: No Medical Necessity Reason Pt with a Central, PICC or Fol: Yes The following are medically ne: Central Line, Sams Catheter Subjective Review of Systems The patient is a 40-year-old female with past medical history of anxiety, UTIs, and kidney stones who presented to [facility] ED for evaluation of cardiac arrest. As reported by EMS/family, patient had cardiac arrest, was asystole 1238 a.m., CPR initiated by family. Patient was initially anxious but was not having any complaints like chest pain or shortness of breath. EMS were on the scene within 5 minutes, CPR continued, patient was given IV fluid, epinephrine x2, became VFib so patient was shocked at 100 joules, Narcan given, became asystole again upon arrival at ER at 0108 hours, blood sugar upon arrival was 43, ROSC obtained at 0112 a.m. Family also reports that patient was depressed for the past 5 years, she has been staying in bed with decreased oral intake, had a fall injury in April resulting in arm and hip fracture. They denied any other significant past medical history. Patient was seen and evaluated in the ED, laboratory data shows WBC 8.8, hemoglobin 6.4, hematocrit 25.0, platelets 260, sodium 151, potassium 6.3, BUN 29, creatinine 2.52, GFR 24, glucose 146, anion gap 28.001, calcium 7.9, lactic acid 21.1 trending down to 15.2, magnesium 4.1, AST 2482, ALT 1430, troponin 2769, BNP 8.48, lipase 31, protein 4.8, albumin 2.7, blood pressure 151/22 trending up to 107/30, heart rate 106, temperature 94.2 F, O2 saturation 97% on ventilator. Head CT showed no acute intracranial abnormality. Patient was started on IV antibiotic regimen vancomycin, please see medication orders section in the computer. On my assessment, patient remains fully intubated, no diaphoresis, no diarrhea, vomiting, no fever. Patient was admitted for further evaluation and medical management. past surgical history; family denies family history: noncontributory past social history: patient lives with the family, denies any smoking, alcohol, drug use 09/06/25: patient seen in ICU. Patient is intubated, on Levophed o, off sedation. Head CT showed diffuse cerebral and cerebellar edema due to anoxic brain injury. neurology following, neurology stated poor prognosis. Kidney functions worsening. Patient's family states before admission patient has seizure-like activity, loss of consciousness which was on and off during the whole day. 09/07/25 40-year-old female in the ICU following cardiopulmonary arrest on 09/04/25, now with severe anoxic brain injury. * Intubated, mechanically ventilated * Off all sedation * No spontaneous movements * No response to pain * No brainstem reflexes: absent corneal, cough, gag, oculocephalic reflexes * Pupils 8 mm, fixed, nonreactive * Family updated todaypoor prognosis discussed, but family chooses FULL CODE and wants everything done Overnight: * Urine output 250 mL total/ 0.15ML/KG/HR * Sams in place, urine [id number] annia * Tube feeds restarted, residuals 15 mL, tolerated * Small bowel movement today * Yamileth-care and sacral wound care performed EEG completed at bedside today for assessment of anoxic injury. Hemodynamics: * On norepinephrine drip for shock Respiratory: * Lungs clear except mild right basal infiltrates Consults: Neurology and Nephrology actively following. 09/08/25 The patient remains critically ill, intubated, mechanically ventilated, and off all sedation since 09/05. Overnight and through today, there continues to be no neurologic improvement. * Mental status unchanged and remains unresponsive/comatose * EEG yesterday inconclusive. Neurology now ordering brain perfusion scan today for brain evaluation * On norepinephrine drip, titrated 8 - 4 mcg/min * CXR today: no major change, persistent bilateral mixed pulmonary opacities and probable small pleural effusions * Oliguria continues * Urine output overnight: 100 mL * Total UO last 24h: 200 mL * Nephrology discontinued Lasix 80 mg BID * Lasix drip started * IR consulted for tunneled dialysis catheter placed today * Plan for hemodialysis/[employer]NAGER likely tomorrow Patient remains in critical multiorgan dysfunction with severe irreversible anoxic brain injury, worsening renal failure requiring AUTOMOTIVE GENERAL MANAGER preparation, hemodynamic instability requiring vasopressors, and persistent respiratory failure on the ventilator. No neurologic recovery. Full code per family request. 09/09/25 The patient remains critically ill, intubated, mechanically ventilated, and off all sedation since 09/05. Overnight and through today, there continues to be no neurologic improvement. * Mental status unchanged and remains unresponsive/comatose * EEG yesterday inconclusive . Neurology now ordering brain perfusion scan today for brain evaluation * Oliguria continues * IR consulted tunneled dialysis catheter today * Plan for hemodialysis/[employer]AL MANAGER likely tomorrow, patient developed b/l upper extremity rash near the right elbow and left antecubital fossa. Patient remains in critical multiorgan dysfunction with severe irreversible anoxic brain injury, worsening renal failure requiring AUTOMOTIVE GENERAL MANAGER preparation, hemodynamic instability requiring vasopressors, and persistent respiratory failure on the ventilator. No neurologic recovery.Full code per family request. 09/10/25 he patient continues to remain critically ill, unresponsive, mechanically ventilated, off all sedation, with severe anoxic brain injury and no signs of neurologic recovery. Family continues to request FULL CODE and continuation of all aggressive medical care. * Urine output: 0.16 mL/kg/hr (severely oliguric) * Yesterday: Hemodialysis with 700 mL ultrafiltration * Today: Plan for 11.5 L ultrafiltration * Tunneled right IJ permacath placed 09/09 * Lasix drip discontinued * Creatinine 5.9 (improving from 7.58) * Iron studies: * Iron 11 (low),TIBC 204 (low),Saturation 5.4% (severely low),Ferritin 132 * EEG: Severe diffuse cerebral dysfunction consistent with severe hypoxic metabolic encephalopathy * Poor prognosis confirmed by neurology * Brain perfusion nuclear scan scheduled today/tomorrow for brain evaluation * Diffuse purpuric rash spreading over upper extremities and lower extremities * Ecchymosis + petechiae + non-blanching lesions * Rash progression after Unasyn possible beta-lactam hypersensitivity * Unasyn discontinued today * Doxycycline started 09/11/25 The patient was examined at bedside this morning. She remains critically ill, mechanically ventilated, unresponsive, and off all sedation. Today's major update is the nuclear brain perfusion scan showing complete absence of intracranial perfusion with hot-nose sign, radiologically consistent with BRAIN , pending final neurologic confirmation. Family was updated about the extremely poor prognosis; however, they insist on FULL CODE and full aggressive care. * When repositioned, HR drops into 30s returned to baseline after stabilization * SpO2: 98% on FiO2 30% * No fever * Urine output: 0.05 mL/kg/hr (severe oliguria) * HD yesterday removed 1.5 L UF * HD planned again tomorrow 09/12/25 The patient was evaluated at bedside today. She remains intubated, mechanically ventilated, and entirely unresponsive with no sedation on board. Neurology officially confirmed BRAIN today based on: * Absent brainstem reflexes * No spontaneous respiration * Nuclear medicine brain perfusion scan showing complete absence of intracranial perfusion * Clinical brain examination performed and documented This was explained thoroughly to the family. Despite clear communication, the family continues to request FULL CODE status and all aggressive measures, including long-term life support and LTAC placement. A social media developer/Case Management consult has been placed for LTAC disposition per family request. 09/13/2025 The patient was evaluated today in the ICU. She remains intubated, mechanically ventilated, on Levophed, and unresponsive with no sedation. She is afebrile, normocardic, and with MAP maintained on pressors. Labs today showed drop in Hb to 6.9, for which 1 unit of PRBC was transfused. Creatinine and BUN continue to increase, for which she was dialyzed today. Stool sample were also to evaluate any possible bleeding. Brain has been declared by neurology, family wishes for her to remain FULL CODE at this time. Per Director Of Purchasing, the patient does not qualify for LTAC placement at this time. We will continue to monitor. 09/14/25 The patient was evaluated at bedside today. She remains intubated and mechanically ventilated, without sedation, unresponsive, and with previously confirmed brain (absent brain perfusion, absent brainstem reflexes, nuclear perfusion scan positive for brain ). She continues to exhibit no neurologic function. Family met at bedside today. The irreversible prognosis and confirmed brain status were reviewed again. Family is currently discussing goals of care but for now insists the patient remain FULL CODE with continued aggressive care, including ongoing mechanical ventilation and dialysis as needed. Overnight Interval Events Hemoglobin dropped to 6.6 1 unit PRBC transfused post-transfusion Hgb 8.7 Dialysis removed 2 L Rash continues to improve No major ventilatory changes Hemodynamics fluctuating but stable with vasopressors 09/15/25 The patient was evaluated at bedside today. She remains intubated, mechanically ventilated, unresponsive without sedation. Neurologically, she continues to exhibit no cerebral or brainstem activity, consistent with previously documented brain on nuclear medicine perfusion study. Important new finding today: Despite clinical brain , the patient demonstrates spinal reflex activity, including: * Muscle twitching in upper extremities * Brief fast fasciculatory movements upon touch * Reflexive limb motion during turning and repositioning These findings are consistent with spinal reflex arcs, not cortical activity, and do not contradict brain physiology. Family has not yet decided regarding withdrawal of care and continues to insist on full aggressive measures. A second neurologist is scheduled for repeat confirmatory brain- exam today. Hemodialysis ongoing, with UF goal 1 L. Rash that developed after Unasyn is improving.Thrombocytopenia worsened (platelets 23,000). Hemoglobin dropped again. 09/16/25 The patient was evaluated at bedside today. She remains intubated, mechanically ventilated, and completely unresponsive without sedation. Her neurologic status continues to show no meaningful clinical neurologic function, however spinal reflex activity (muscle twitching on touch and during repositioning) persists, consistent with spinal cordmediated reflexes, not brain activity. A second neurologist completed a full clinical examination yesterday including cold caloric testing, corneal reflex, gag, cough reflex, pain response, and oculovestibular function: * Some isolated spinal reflex muscle activity was noted * Neurologist conclusion: * Does NOT meet full clinical criteria for brain because minimal brainstem reflex activity was detected * However, overall exam consistent with irreversible catastrophic anoxic brain injury * Radiologic findings remain consistent with brain pattern * Prognosis: extremely poor, essentially non-survivable anoxic injury Family was updated at bedside. They are considering terminal weaning, but request more time and have decided for now to continue FULL CODE, FULL AGGRESSIVE CARE. Patient continues on mechanical ventilation, dialysis-dependent KIMI,and poor neurologic prognosis. 09/17/25 The patient was evaluated at bedside today. She remains intubated, mechanically ventilated, profoundly unresponsive, and off all sedation. Her neurologic status is unchanged , consistent with irreversible catastrophic anoxic brain injury, although she does not meet full clinical criteria for formal brain (as per second neurologist evaluation). She continues to demonstrate intermittent spinal reflex activity (muscle twitching with touch or turning), consistent with spinal cordmediated reflexes. The family continues to deliberate regarding terminal weaning. They have not yet decided on the timing and request additional time. Until a final decision is made, they request FULL CODE and full aggressive support. No new acute events overnight. Hemodynamics remain supported with norepinephrine drip, titrated to maintain SPP > 90 mmHg per updated neuro-critical care plan. The patient is scheduled for hemodialysis today, with UF per nephrology recommendations. No other major changes in clinical condition. 09/18/25 The patient underwent hemodialysis yesterday, with 1.9 liters removed, and tolerated the procedure without acute complications. She remains on norepinephrine (LEVOPHED) infusion 58 mcg/min with blood pressures fluctuating between 116/65 and 90/57 mmHg. Repeat chest X-ray today shows increased interstitial prominence, raising concern for mild pulmonary congestion vs early interstitial edema. Most importantly, after multiple family meetings and extensive discussion with neurology and , the family has decided on terminal weaning tomorrow at 11:00 AM. Full supportive measures and full code status will be continued until the time of terminal weaning. 09/19/25: Patient seen and examined at bedside, had a long family discussion today, patient who is her POA was absent due to work, patient's family was determined and willing after her father coming from [place], 09/20/25 The patient underwent hemodialysis yesterday (09/19/25) with 1.0 L ultrafiltration removed, resulting in improvement in BUN (48 improved), creatinine (3.49 from 4.49), and potassium correction (5.4 - 4.2). She continues on norepinephrine (Levo) at 4 mcg/min for blood pressure support. No acute distress noted. Family meeting conducted today the patients family wishes to proceed with terminal weaning next week once the patients father arrives from [place]. Until then, they request continuation of full aggressive care with full code status. Doxycycline discontinued today as the full antibiotic course has been completed. No new overnight events. 09/21/25 Family states they are still waiting for the patients father to arrive from [place] before deciding on terminal weaning with comfort-focused care. Until then, they request continuation of full code and full aggressive management. Todays labs show worsening azotemia (BUN 64, Cr 4.41), hypernatremia (Na 147) likely from insensible losses and decreased free water intake, anemia with Hgb 8.4, thrombocytosis (platelets 566K), and ABG showing respiratory alkalosis with metabolic alkalosis compensation. Hemodialysis is scheduled for tomorrow per nephrology. Loop diuretics resumed. Tube feeding switched to Nepro formula. Free water boluses q4h through G-tube started. PTH level ordered. Respiratory secretions mild. Vent settings changed: respiratory rate decreased from 15 - 14. No acute overnight events. 09/22/25 Family has not yet finalized decision regarding terminal weaning. They request another [id number] meeting today. * On norepinephrine 46 mcg/min, titrated to maintain SPP > 90 and MAP > 65 Hypernatremia: * Sodium remained elevated at [address] at 153 * Tube-feed free water discontinued. * D5W infusion started at 100 mL/hr for controlled serum sodium reduction. * Strict I/O monitoring in place. 09/23/25 Patient was examined at bedside today. She remains unresponsive, intubated, mechanically ventilated, off all sedation, with no purposeful movements. Prior spinal reflex/twitching may still be present but no new neurologic activity is reported. Hemodynamics remain relatively stable on current ICU support. No reported fevers. Oxygenation and ventilation are stable on unchanged ventilator settings. Langston interval changes today: * Na improved to 142 (from 153 previously) * BUN 45, Cr 3.13 (improved from prior higher values) * CXR: Hazy bilateral opacities unchanged from yesterday; consistent with prior pulmonary congestion/infiltrates. Family / Goals of Care: * Family has confirmed they want terminal weaning but have not yet chosen the exact date. * They do NOT want PEG tube or tracheostomy and decline escalation to those procedures. * They want to continue full code and all current ICU-level medical management (including ventilator, pressors, dialysis, nutrition) except PEG and trach, until terminal weaning is performed. No new procedures today. 09/24/25 Family has not reached a final decision regarding terminal weaning and there is no update today regarding timing. They previously expressed intention to proceed with terminal extubation once decision is finalized, and continue FULL CODE status and ongoing life-support until then. 09/25/25: Patient seen and examined at bedside, Family has not reached a final decision regarding terminal weaning and there is no update today , continue full code status for now. No cough or gag reflex, patient has some decorticate movement. Patient has poor likelihood meaningful recovery, high likelihood demise. 09/26/25: Patient seen and examined at bedside, Family has not reached a final decision regarding terminal weaning and there is no update today , continue full code status for now. No cough or gag reflex, patient has some decorticate movement. Patient has poor likelihood meaningful recovery, high likelihood demise. 09/27/2025: Patient seen in the ICU. She is intubated, not on any sedation, mechanically ventilated, on Levophed. Per nurse, calcium was 13 this morning for which dose of Bumex was given. Labs were significant for elevated WBCs, renal function was mildly improved she is pending dialysis tomorrow, LFTs continue to worsen. Per nurse, greenish-yellow sputum found in the ET tube, sputum culture has been ordered. Family has not reached a final decision regarding terminal weaning at this time. 09/28/25 Patient seen at bedside today. She remains ventilator-dependent, unresponsive, no purposeful activity, consistent with persistent irreversible anoxic brain injury. No sedation used. Vital signs fluctuating but overall hemodynamically stable. Mild tachycardia noted. CBC shows WBC 13 (mild leukocytosis), anemia Hgb 9.2, thrombocytosis 544. CMP notable for hypercalcemia 13.9 (likely immobilization-related); nephrology evaluating, ongoing D5W at 60 mL/hr. Sodium 146, stable. Albumin remains low. AST 897 / ALT 435 / ALP 360 markedly elevated, likely shock/hepatic injury pattern. CXR shows bilateral patchy opacities, unchanged. Family remains aware of prognosis and continues full code, but terminal withdrawal timeline not finalized. 09/29/25 Patient examined at bedside today. She remains ventilator-dependent, unresponsive, without purposeful neurological activity. No sedation administered. Spontaneous spinal reflex/twitch responses persist. Clinical status overall unchanged, however ABG shows new respiratory acidosis with CO2 retention (pH 7.29 / pCO2 54.8) therefore ventilator rate increased from 20 - 22 CXR demonstrates bilateral lower lobe airspace disease + small right pleural effusion. Electrolytes notable for hypercalcemia 13.7, ESRD with worsening BUN 90 / Cr 4.64, and anemia remains stable. Sputum culture rare budding yeast noted likely colonization. Family has confirmed terminal weaning scheduled Sunday 12 PM this week, no PEG, no trach, until then FULL SUPPORT continued. Clinical summary today: New respiratory acidosis vent settings adjusted Hypercalcemia persistent management continued Hemodialysis scheduled for today Terminal withdrawal confirmed for upcoming Sunday at noon 09/30/25 Overnight, no acute events reported. Hemodynamics stable on current support. No fever. The patient remains ventilator-dependent with unchanged ventilator settings and stable oxygenation.. Fluids: D5W discontinued in the setting of improved sodium. Renal: Hemodialysis scheduled for tomorrow (10/01/25) for solute control and fluid balance. Plan of care: Family confirms terminal weaning scheduled Thursday, October 02, 2025 at 12 PM. Until then, patient will continue receiving FULL SUPPORT, excluding PEG or tracheostomy per family wishes. No major clinical deterioration today; overall status remains poor 10/01/25 The patient is scheduled to undergo hemodialysis today as part of ongoing ESRD management. The family has previously agreed and reconfirmed that the patient will undergo terminal weaning tomorrow (10/02/2025 at 12:00 PM). Until that time, the patient will continue to receive full medical support, excluding tracheostomy and PEG placement per family wishes. Brief Gist of Todays Course: * No significant clinical changes * Hemodynamically stable on current support * Ventilator settings unchanged * Hemodialysis scheduled for today * Terminal withdrawal confirmed for tomorrow at noon Objective vital signs Vital Sign Date Time Temp Pulse Resp B/P (MAP) Pulse Ox O2 Delivery O2 Flow Rate FiO2 10/01/25 11:19 95 22 108/62 (77) 96 35 10/01/25 10:00 Mechanical Ventilator+ 10/01/25 08:00 99.5 99.5 Total Intake and Output 09/30/25 09/30/25 10/01/25 15:00 23:00 07:00 Intake Total 640 ml 536 ml Output Total 1500 ml 1200 ml Balance -860 ml -664 ml medications Current Medications Medications Dose Ordered Sig/Ese Route Start Time Stop Time Status Last Admin Dose Admin Pantoprazole Sodium 40 mg DAILY IV 09/06/25 10:00 10/01/25 08:37 40 MG Artificial Tears 1 drop Q4HP PRN EACHEYE 09/08/25 18:00 09/15/25 02:47 1 DROP Multi-Ingredient Ointment 1 applic DAILY TOP 09/10/25 10:00 10/01/25 08:37 1 APPLIC Norepinephrine Bitartrate 250 ml @ 3.75 mls/hr Q24H IV 09/15/25 08:45 10/01/25 09:20 24.375 MLS/HR Enteral Nutritional Formula 1,000 ml 45ML/HR GT 09/21/25 19:30 10/01/25 05:13 1,000 ML Albumin Human 100 ml @ 100 mls/hr PRN PRN IV 09/22/25 05:45 09/24/25 16:49 100 MLS/HR Doxycycline Hyclate 100 ml @ 50 mls/hr Q12H IV 09/27/25 17:30 10/01/25 05:13 50 MLS/HR Cefepime HCl 50 ml @ 12.5 mls/hr DAILY@1999 IV 09/27/25 20:00 09/30/25 21:01 12.5 MLS/HR Diagnostic Test (Pha) 1 strip Q6HR 09/29/25 12:00 10/01/25 11:20 1 STRIP Insulin Human Regular Q6HR SC 09/29/25 12:00 09/30/25 18:53 2 UNITS Dextrose 50 ml UD PRN IV 09/29/25 09:15 Bumetanide 1 mg DAILY IV 09/29/25 22:00 09/30/25 11:08 1 MG Examination General: patient is unresponsive, intubated, mechanically ventilated, on Levophed. HEENT: Normocephalic, atraumatic, dilated unreactive pupils, no extraocular movement, eyelid swelling. conjunctival injection, scleral edema, ET tube in place Respiratory/pulmonary: Bilateral chest expansion, clear lungs bilaterally, vesicular murmurs present in almost all lung cooper, no associated crackles or wheezes, on ventilator with settings of ACVC mode Cardiovascular: Normal RRR, hypotensive when moved Abdomen: Abdomen mildly distended, normal bowel sounds, soft, no grimacing or reaction on palpation Extremities: No deformities, nonpitting edema, pulses are present Skin: patchy petechiae, ecchymosis in various stages of healing, sacral scab. Neurological: GCS 3, pupils 8 mm and fixed bilaterally, no corneal, cough, gag, or oculocephalic reflexes, no spontaneous movement, no withdrawal to pain, rigid upper extremities, nuclear scan consistent with brain , occasional decorticate posturing laboratory and microbiology Laboratory Tests 09/30/25 03:35 Test 09/30/25 03:35 Range/Units Serum Glucose 122 H 74-106 mg/dL Microbiology Date/Time Source Procedure Growth Status 09/27/25 15:00 Trachea Gram Stain - Final Complete 09/27/25 15:00 Respiratory Culture - Final Presumptive Mary Carmen albicans Complete 09/04/25 23:21 Urine - [place] Urine Culture - Final Complete 09/04/25 04:22 Sputum Expectorated Sputum Gram Stain - Final Complete 09/04/25 04:22 Respiratory Culture - Final Staphylococcus aureus Complete 09/04/25 01:40 Blood Blood Culture - Final NO GROWTH AFTER 5 DAYS OF INCUBATION. Complete Problem List/Assessment/Plan Problem List/Assessment/Plan Neurology #Catastrophic, irreversible, severe anoxic brain injury; extremely poor prognosis Metabolic encephalopathy (secondary to anoxic injury) * Imaging consistent with brain * Clinical exam does NOT meet full brain- criteria (minimal brainstem reflex activity) * Spinal reflexes present * Prognosis: terminal # History of anxiety # Questionable Seizure like activity -Neurology on board - Neurology stated poor prognosis * Continue neuro checks Q1H * Maintain normothermia * Avoid hypotension/hypoxia * Nuclear brain perfusion scan consistent with brain * EEG: Severe diffuse cerebral dysfunction consistent with severe hypoxic metabolic encephalopathy For now full code. * Family fully understands prognosis and has chosen comfort-focused withdrawal tomorrow at 11 AM * Second neurologist exam does not meet brain criteria but poor prognosis, family updated * Maintain current ventilatory support Cardiology #Postcardiac arrest state (VF arrest - ROSC) #Mixed cardiogenic + septic shock on norepinephrine # heart failure with reduced ejection fraction likely post cardiac arrest # Dyslipidemia # Non ST-elevation myocardial infarction likely type 2 status post cardiac arrest, type 1 not ruled out -Echo : Conclusion MODERATELY DILATED RV AND IS HYPOKINETIC DYSKINESIS OF IVS RVSP IS 40 MM OF HG AND IS HIGH STUDY CONFIRM RV FAILURE GLOBAL LV HYPOKINESIS LV EF IS 40% AND IS REDUCED NORMAL VALVES NO EFFUSION Maintain SPP (Systolic Perfusion Pressure) > 90 mmHg at all times. * Titrate norepinephrine (LEVOPHED) drip to maintain SPP > 90 mmHg. * Monitor for multi-organ shock progression.* Avoid hypotension to preserve brain perfusion * Cardiology involved * Daily EKG * Trend troponins Given anoxic brain injury, the patient is not a candidate for invasive cardiac work-up as per cardiology continue conservative medical management. * Bradycardia episodes with repositioning move gently Respiratory #Acute hypoxic respiratory failure requiring mechanical ventilation Respiratory Acidosis secondary to CO2 retention ventilation increased * AC/VC: RR 22 VT 400 FiO2 35% PEEP 5 * VAP bundle * Daily CXR * Oral care Q4H * SBT contraindicated * No trach per family; terminal withdrawal scheduled Sunday Infectious Disease #MSSA / possible aspiration pneumonia Bilateral Pulmonary Infiltrates + R Pleural Effusion * STOPPED Unasyn today due to allergic rash * continue doxycycline * Continue to monitor rash progression * Monitor sputum, blood, urine cultures * COVID/Flu negative * Sputum cultures sent * Cefepime and Doxycycline started * Rare budding yeast in culture likely colonization, monitor * If fever consider antifungal coverage Hematology Microcytic anemia # severe anemia requiring blood transfusion -2 unit of PRBC transfused Started on IV IRON # coagulopathy likely due to sepsis Monitor Thrombocytopenia (Plt 124), resolved * * Hgb stable at 7.5 , Discontinued Heparin, transfuse only if <7 * Platelets normal * DVT prophylaxis: Heparin held due to anemia * Use SCDs Renal * KIMI stage 3 on solitary kidney *Dialysis-dependent renal failure * Continue daily evaluation for kidney replacement therapy. * Avoid nephrotoxins * Daily BMP, Mg, Phos hyperkalemia Corrected #Hypercalcemia - Bumex - Monitor levels * Monitor calcium consider calcitonin if Ca >14 or symptomatic # hypernatremia improved -D5W 60 mL/hr discontinued today due to improved Na # metabolic acidosis due to sepsis Monitor ABG # respiratory alkalosis Improved # hypomagnesemia Monitor Urology # complicated urinary tract infection resolved # Punctate nonobstructing right renal calculi. Seen on ultrasound # Left nephrectomy. Seen on ultrasound GI Shock liver (AST/ALT markedly elevated) * Continue Nepro tube feeds @ 35 mL/hr * Check residuals Q4H * PPI for ulcer prophylaxis * Monitor stool output Endocrine * Insulin ACHS * Maintain BG [id number] Skin * Stage 1 sacral ulcer * Wound care following * Reposition Q2H * Pencillin hypersensitivity improving Ensure no heparin products (including flushes) STOP Unasyn (done) Start doxycycline (done) Warm compresses to affected areas Reposition Q2H to reduce pressure contribution NO signs of cellulitis (no warmth) Topical emollients (Aquaphor) to reduce skin breakdown Monitor platelets daily OPHTHALMOLOGY * Conjunctival injection, swollen eyelids * Start Lacri-lube eye drops Q6H LINES / TUBES * ETT (09/04) * OG tube * Left femoral central line (09/04) * Sams catheter Right IJ tunneled dialysis catheter (09/09) * Daily line necessity review PROPHYLAXIS * DVT: SCDs only * GI: Pantoprazole * Ulcer: Q2H turns * VAP: oral care, CHG, HOB elevation SOCIAL WORK / FAMILY SUPPORT * Family updated extensively today Family meeting completed. Terminal weaning confirmed for Sunday at 12 PM. Until then, FULL CODE, full support. No PEG, no trach. * Social work available for support CODE STATUS FULL CODE Family meeting completed. Terminal weaning confirmed for Teodoro at 12 PM. CRITICAL CARE TIME 83 minutes of critical care time spent today, excluding procedure time. . DISCUSSION WITH ATTENDING Case reviewed in detail with attending physician Dr Singleton. Management plan jointly agreed upon. including the clinical presentation, diagnostic workup, and comprehensive management plan. The patient's family was present for the discussion and demonstrated understanding of his condition and the proposed plan. Plan discussed with: Spouse, Daughter (RN) My Orders My Orders Orders - FRANCIS PRESSLEY RESIDENT Procedure Category Date Status Time Chest Xray 1 View XY 10/02/25 Logged 04:00 Abg W/ Co-Ox RT 10/02/25 Logged 04:00 Dietary Evaluation Review Comments: 1. nepro 35/hr providing 68g pro, 1487kcal, 611ml free water, meeting 107% energy needs, 80% protein needs 2. Increase amount of Protein support for wound healing when/if pt's kidney function impvoes. F/U and reassess when pt is off vent and PRN. Expected Outcomes/Goals: Adequate nutrition support for being on mechanical ventilation CC Plasma Assessment Blood Product Administration S: 06:05 Visit Coding STANDARD RES Billing Provider: KEYA SINGLETON MD Date of Service if different f: Oct 01, 2025 Common Visit Codes: 21245-[id number] CARE 30-74 MIN, 05761-[id number] CARE-EACH +30MIN FRANCIS PRESSLEY Oct 01, 2025 12:30 KEYA SINGLETON MD Oct 03, 2025 11:54
--- NOTE | 2025-10-01 20:47 | DVHPN2 ---
Progress Note - Dictate Date Seen: Oct 01, 2025 Has the PT tested + for MRSA If YES, has PT been informed?: No Medical Necessity Reason Pt with a Central, PICC or Fol: Yes The following are medically ne: Central Line, Sams Catheter Subjective Patient was seen and evaluated in follow up in the ICU. Patient is intubated on ventilator. 35% FiO2. Per [facility] rep the patient's family is sating they do not want to proceed with organ donation. Chest x-ray shows no significant change from the previous study. There is mixed pulmonary opacities in the mid to lower lungs with small pleural effusions.Family confirms terminal weaning scheduled Thursday, October 02, 2025 at 12 PM. Until then, patient will continue receiving FULL SUPPORT, excluding PEG or tracheostomy per family wishes. vital signs Vital Sign Date Time Temp Pulse Resp B/P (MAP) Pulse Ox O2 Delivery O2 Flow Rate FiO2 10/01/25 10:15 100 23 113/69 (84) 97 10/01/25 10:00 35 10/01/25 10:00 Mechanical Ventilator+ 10/01/25 08:00 99.5 99.5 Total Intake and Output 09/30/25 09/30/25 10/01/25 15:00 23:00 07:00 Intake Total 640 ml 536 ml Output Total 1500 ml 1200 ml Balance -860 ml -664 ml medications Current Medications Medications Dose Ordered Sig/Ese Route Start Time Stop Time Status Last Admin Dose Admin Pantoprazole Sodium 40 mg DAILY IV 09/06/25 10:00 10/01/25 08:37 40 MG Artificial Tears 1 drop Q4HP PRN EACHEYE 09/08/25 18:00 09/15/25 02:47 1 DROP Multi-Ingredient Ointment 1 applic DAILY TOP 09/10/25 10:00 10/01/25 08:37 1 APPLIC Norepinephrine Bitartrate 250 ml @ 3.75 mls/hr Q24H IV 09/15/25 08:45 10/01/25 09:20 24.375 MLS/HR Enteral Nutritional Formula 1,000 ml 45ML/HR GT 09/21/25 19:30 10/01/25 05:13 1,000 ML Albumin Human 100 ml @ 100 mls/hr PRN PRN IV 09/22/25 05:45 09/24/25 16:49 100 MLS/HR Doxycycline Hyclate 100 ml @ 50 mls/hr Q12H IV 09/27/25 17:30 10/01/25 05:13 50 MLS/HR Cefepime HCl 50 ml @ 12.5 mls/hr DAILY@1999 IV 09/27/25 20:00 09/30/25 21:01 12.5 MLS/HR Diagnostic Test (Pha) 1 strip Q6HR 09/29/25 12:00 10/01/25 11:20 1 STRIP Insulin Human Regular Q6HR SC 09/29/25 12:00 09/30/25 18:53 2 UNITS Dextrose 50 ml UD PRN IV 09/29/25 09:15 Bumetanide 1 mg DAILY IV 09/29/25 22:00 09/30/25 11:08 1 MG objective GENERAL: Ill appearing, intubated on ventilator. EYES: PERRL, EOMI. Anicteric. HENT: Moist mucous membranes. LUNGS: Decreased breath sounds. CARDIOVASCULAR: Regular rate and rhythm. ABDOMEN: Soft, nontender and nondistended. EXTREMITIES: No edema. SKIN: Warm, dry. laboratory and microbiology Laboratory Tests 09/30/25 03:35 Test 09/30/25 03:35 Range/Units Serum Glucose 122 H 74-106 mg/dL Problem List Cardiopulmonary arrest with ROSC. Ventricular fibrillation arrest with defibrillation at 100J. Non ST-elevation myocardial infarction. Acute anemia status post blood transfusion (-FOBT). Acute hypoxic respiratory failure. Likely KIMI on CKD. Left nephrectomy. Shocked Liver. Dyslipidemia, newly diagnosed. Cerebral and cerebellar edema, anoxic brain injury. ? Suspected PE with RV failure and PAH. Assessment/Plan Continued all current supportive medical care. Diuretics with Bumex. IV antibiotics as ordered. Vasopressors for hemodynamic support. GI prophylactics. Additional plan as per the hospital course. Critical care time of 45 minutes provided to include time spent evaluation of patient at bedside, when appropriate patient/family education for diagnosis, treatment plan, review of pertinent medical information and discussion of care with specialty providers and PCP. Mechanical ventilator parameters, treatment and adjustments have personally been reviewed by me and treatment plan by shear grinder operator helper has also been reviewed. Dietary Evaluation Review Comments: 1. nepro 35/hr providing 68g pro, 1487kcal, 611ml free water, meeting 107% energy needs, 80% protein needs 2. Increase amount of Protein support for wound healing when/if pt's kidney function impvoes. F/U and reassess when pt is off vent and PRN. Expected Outcomes/Goals: Adequate nutrition support for being on mechanical ventilation Plan discussed with: Other CC Plasma Assessment Blood Product Administration S: 06:05 RISHI SOARES MD Oct 01, 2025 11:50
[2025-10-02] VITALS (49 sets, daily range): BP systolic 96–123; BP diastolic 55–81; PULSE 94–104; RESP 22–24; TEMP 98.1–99; O2SAT 95–100
--- NOTE | 2025-10-02 05:58 | DVH ---
CHEST RADIOGRAPH Indication: Acute hypoxic respiratory failure Technique: Single frontal view of the chest was obtained COMPARISON: XY CHEST XRAY 1 VIEW on DOS: 10/01/25, XY CHEST XRAY 1 VIEW on DOS: 09/30/25, XY CHEST PORTABLE on DOS: 09/29/25, XY CHEST XRAY 1 VIEW on DOS: 09/29/25, XY CHEST PORTABLE on DOS: 09/28/25 FINDINGS: Lines and Tubes: Endotracheal tube, enteric catheter and right tunneled central venous catheter in satisfactory position. Lungs: Unchanged pulmonary edema. Pleura: No effusion. No pneumothorax. Cardiomediastinal contours: Unremarkable Bones: Unremarkable IMPRESSION: Lines and tubes in satisfactory position. No significant interval change.
[2025-10-02 09:01] LABS: Base Excess -1.6 mmol/L (-2.0-3.0)
[2025-10-02] MEDS ORDERED: LORazepam 2MG/ML-1ML VIAL IV PRN (10:15)
[2025-10-02] MEDS ORDERED: MORPHINE SULFATE 4 MG/ML SYR/VIAL IV PRN (10:15)
--- NOTE | 2025-10-02 12:27 | DVHDSRES ---
Discharge Summary Date of Admission Resident Creating Document: FRANCIS PRESSLEY RESIDENT Sep 04, 2025 at 05:10 Date of Discharge: Oct 02, 2025 Admitting Diagnosis Cardiac arrest with successful resuscitation Labs/Diagnostic Data: Laboratory Results Test 10/02/25 08:12 10/02/25 05:47 10/01/25 07:40 09/30/25 03:35 Blood Gas Specimen Type Arterial Blood Gas Sample Site Left radial Blood Gas Patient Temperature 37.0 Arterial Blood Date Drawn [id number] Arterial Blood pH 7.358 (7.350-7.450) Arterial Blood Partial Pressure CO2 43.4 mmHg (32.0-45.0) Arterial Blood Partial Pressure O2 66.7 mmHg (83.0-108.0) Arterial Blood HCO3 23.9 mmol/L (21.0-28.0) Arterial Blood Oxygen Saturation 89.4 % (94.0-98.0) Arterial Blood Base Excess -1.6 mmol/L (-2.0-3.0) Arterial Blood Oxyhemoglobin 88.9 % (94.0-98.0) Arterial Blood Carboxyhemoglobin 0.4 % (0.5-1.5) Arterial Blood Methemoglobin 0.2 % (0.0-1.5) Arterial Blood Deoxyhemoglobin 10.5 % (0.0-5.0) Fernando Test Modified Blood Gas Total Hemoglobin 11.40 g/dL (12.0-16.0) Blood Gas Set Respiration Rate 22.0 Blood Gas Modality Vent - ac FiO2 % 35.0 Blood Gas Tidal Volume 400.0 Blood Gas PEEP or CPAP 5.0 POC Glucose 121 mg/dl (70-106) Blood Gas Critical Value Read Back yes Blood Gas Notified Whom tanika Pressley md Blood Gas Notified Time [id number] Blood Gas Notified By White Blood Count 14.0 10^3/uL (4.4-10.8) Red Blood Count 3.24 10^6/uL (4.0-5.20) Hemoglobin 7.3 g/dL (12.2-16.2) Hematocrit 23.9 % (36.0-46.0) Mean Corpuscular Volume 73.8 fL (80.0-100.0) Mean Corpuscular Hemoglobin 22.6 pg (28.0-32.0) Mean Corpuscular Hemoglobin Concent 30.6 g/dL (32.0-36.0) Red Cell Distribution Width 24.4 % (11.8-14.3) Platelet Count 412 10^3/uL (140-450) Mean Platelet Volume 6.8 fL (6.9-10.8) Neutrophils (%) (Auto) 74.3 % (37.0-80.0) Lymphocytes (%) (Auto) 12.5 % (10.0-50.0) Monocytes (%) (Auto) 10.9 % (0.0-12.0) Eosinophils (%) (Auto) 2.0 % (0.0-7.0) Basophils (%) (Auto) 0.3 % (0.0-2.0) Neutrophils # (Auto) 10.4 10 ^3/uL (1.6-8.6) Lymphocytes # (Auto) 1.8 10 ^3/uL (0.4-5.4) Monocytes # (Auto) 1.5 10 ^3/uL (0-1.3) Eosinophils # (Auto) 0.3 10 ^3/uL (0-0.8) Basophils # (Auto) 0 10 ^3/uL (0-0.2) Nucleated Red Blood Cells 0.3 % Sodium Level 143 mmol/L (136-145) Potassium Level 4.0 mmol/L (3.5-5.1) Chloride Level 103 mmol/L (98-107) Carbon Dioxide Level 26 mmol/L (20-31) Anion Gap 14 (5-15) Blood Urea Nitrogen 105 mg/dL (9-23) Creatinine 5.07 mg/dL (0.550-1.02) Glomerular Filtration Rate Calc 10 mL/min (>90) BUN/Creatinine Ratio 20.7 (10.0-20.0) Serum Glucose 122 mg/dL (74-106) Calcium Level 13.6 mg/dL (8.7-10.4) Total Bilirubin 0.2 mg/dL (0.2-1.0) Aspartate Amino Transferase (AST) 532 U/L (13-40) Alanine Aminotransferase (ALT) 345 U/L (7-40) Alkaline Phosphatase 606 U/L (46-116) Total Protein 7.3 g/dL (5.7-8.2) Albumin 3.2 g/dL (3.2-4.8) Test 09/29/25 04:30 09/28/25 02:52 09/27/25 07:58 09/27/25 03:03 Platelet Estimate Increased Hypochromasia (manual) Moderate Anisocytosis (manual) Moderate Microcytosis Moderate Magnesium Level 2.8 mg/dL (1.6-2.6) Vitamin D 25-Hydroxy 30.5 ng/mL (30.0-100) Differential Total Cells Counted 100.0 (100) Neutrophils % (Manual) 68 (37.0-80.0) Band Neutrophils % (Manual) 6 Lymphocytes % (Manual) 9 (10.0-50.0) Monocytes % (Manual) 6 (0-12) Eosinophils % (Manual) 7 (0-7) Basophils % (Manual) 0 (0.0-2.0) Metamyelocytes % (manual) 1 Myelocytes % (Manual) 1 Promyelocytes % (Manual) 2 Blast Cells % (Manual) 0 Reactive Lymphocytes 0 Large Platelets Few Ovalocytes Few Phosphorus Level 7.4 mg/dL (2.4-5.1) Parathyroid Hormone (Intact) 15.1 pg/mL (18.4-80.1) Test 09/25/25 08:01 09/16/25 07:46 09/13/25 14:00 09/13/25 04:30 Specimen Drawn By [facility] Blood Gas Spontaneous Rate 15 Stool Occult Blood Negative (Negative) Stool Occult Blood Sample #3 (Negative) Hepatitis A IgM Antibody Negative Hepatitis B Surface Antigen Negative (Negative) Hepatitis B Core IgM Antibody Negative (Negative) Hepatitis C Antibody Negative (Negative) Test 09/10/25 03:06 09/09/25 19:40 09/08/25 13:12 09/07/25 03:50 Iron Level 11 ug/dL (50-170) Total Iron Binding Capacity 204 ug/dL (250-425) Percent Iron Saturation 5.4 % (15-50) Ferritin 132.8 ng/mL (10-291) Haptoglobin 166 mg/dL (42-296) Fibrinogen > 860 mg/dL (177-375) Lactate Dehydrogenase 938 U/L (120-246) Prothrombin Time 11.4 sec (9.3-11.8) Prothrombin Time INR 1.08 (0.9-1.15) Random Vancomycin Level 21.8 ug/mL (5-10) Test 09/05/25 20:40 09/05/25 14:01 09/05/25 04:00 09/04/25 18:19 Ammonia 17 umol/L (11-32) Lactic Acid Level 1.6 mmol/L (0.4-2.0) Acetaminophen Level < 2.0 UG/ML (10.0-20.0) Direct Bilirubin 0.2 mg/dL (<0.3) Anti-Nuclear Antibody Comment Comment (.) Cytoplasmic ANCA (c-ANCA) Antibody <1:20 titer (Neg:<1:20) Anti-Proteinase 3 (c-ANCA) <0.2 units (0.0-0.9) Atypical p-ANCA <1:20 titer (Neg:<1:20) Perinuclear ANCA (p-ANCA) Antibody <1:20 titer (Neg:<1:20) Myeloperoxidase Antibody <0.2 units (0.0-0.9) MAGNOLIA-1 Antibody <0.2 AI (0.0-0.9) SS-A/Ro Antibody <0.2 AI (0.0-0.9) SS-B/La Antibody <0.2 AI (0.0-0.9) Sm Antibody <0.2 AI (0.0-0.9) RECORDING STUDIO SET UP WORKER Antibody <0.2 AI (0.0-0.9) Scl-70 (Scleroderma) Antibody <0.2 AI (0.0-0.9) Anti-Double Strand DNA Antibody 1 IU/mL (0-9) Chromatin Antibody 0.2 AI (0.0-0.9) Centromere B Antibody <0.2 AI (0.0-0.9) Complement C3 48 mg/dL (82-167) Complement C4 9 mg/dL (12-38) Test 09/04/25 13:46 09/04/25 11:45 09/04/25 05:49 09/04/25 03:14 Urine Creatinine 85.45 mg/dL (30.0-125.0) Urine Protein/Creatinine Ratio 5.39 Urine Sodium 52 mmol/L (40-220) Urine Total Protein 460.9 mg/dL (1-14) Troponin I High Sensitivity 7574 ng/L (</=34) Triglycerides Level 186 mg/dL (< 150) Cholesterol Level 86 mg/dL (< 200) LDL Cholesterol 41 mg/dL (< 100) HDL Cholesterol 25 mg/dL (40-59) Hemoglobin A1c 5.0 % A1C (<5.7) Urine Color Light-orange (Yellow) Urine Clarity Turbid (Clear) Urine pH 5.5 (5.0-9.0) Urine Specific [place] 1.015 (1.001-1.035) Urine Protein 2+ (Negative) Urine Ketones 1+ (Negative) Urine Blood 3+ /uL (Negative) Urine Nitrite Negative (Negative) Urine Bilirubin Negative (Negative) Urine Urobilinogen Normal mg/dL (Negative) Urine Leukocyte Esterase Negative /uL (Negative) Urine RBC 281 /hpf (0 - 4) Urine Microscopic WBC 37 /HPF (0-5) Urine Squamous Epithelial Cells Few /hpf (<5) Urine Calcium Oxalate Crystals Few (None Seen) Urine Bacteria Few /hpf (None Seen) Urine Hyaline Casts Many /lpf (0 - 2) Urine Mucus Few (None Seen) Urine Glucose Trace mg/dL (Normal) Urine Opiates Screen Neg (NEGATIVE) Urine Fentanyl Screen Neg (NEGATIVE) Urine Barbiturates Screen Neg (NEGATIVE) Urine Phencyclidine Screen Neg (NEGATIVE) Urine Amphetamines Screen Neg (NEGATIVE) Urine Benzodiazepines Screen Neg (NEGATIVE) Urine Cocaine Screen Neg (NEGATIVE) Urine Cannabinoids Screen Neg (NEGATIVE) Test 09/04/25 03:10 09/04/25 02:32 09/04/25 01:49 09/04/25 01:40 Influenza Type A Antigen Negative (Negative) Influenza Type B Antigen Negative (Negative) SARS-CoV-2 Antigen (Rapid) Negative (NEGATIVE) Creatine Kinase 458 U/L (34-145) Blood Gas Comments B-Type Natriuretic Peptide 8.48 pg/mL (0-100) Lipase 31 U/L (12-53) Thyroid Stimulating Hormone (TSH) 2.31 uIU/mL (0.55-4.78) Plasma/Serum Blood Alcohol < 3.0 mg/dL (<10) Other Laboratory Tests 09/30/25 03:35 Brief Hx & Hospital Course: The patient is a 40-year-old female with past medical history of anxiety, UTIs, and kidney stones who presented to [facility] ED for evaluation of cardiac arrest. As reported by EMS/family, patient had cardiac arrest, was asystole 1238 a.m., CPR initiated by family. Patient was initially anxious but was not having any complaints like chest pain or shortness of breath. EMS were on the scene within 5 minutes, CPR continued, patient was given IV fluid, epinephrine x2, became VFib so patient was shocked at 100 joules, Narcan given, became asystole again upon arrival at ER at 0108 hours, blood sugar upon arrival was 43, ROSC obtained at 0112 a.m. Family also reports that patient was depressed for the past 5 years, she has been staying in bed with decreased oral intake, had a fall injury in April resulting in arm and hip fracture. They denied any other significant past medical history. Patient was seen and evaluated in the ED, laboratory data shows WBC 8.8, hemoglobin 6.4, hematocrit 25.0, platelets 260, sodium 151, potassium 6.3, BUN 29, creatinine 2.52, GFR 24, glucose 146, anion gap 28.001, calcium 7.9, lactic acid 21.1 trending down to 15.2, magnesium 4.1, AST 2482, ALT 1430, troponin 2769, BNP 8.48, lipase 31, protein 4.8, albumin 2.7, blood pressure 151/22 trending up to 107/30, heart rate 106, temperature 94.2 F, O2 saturation 97% on ventilator. Head CT showed no acute intracranial abnormality. Patient was started on IV antibiotic regimen vancomycin, please see medication orders section in the computer. On my assessment, patient remains fully intubated, no diaphoresis, no diarrhea, vomiting, no fever. Patient was admitted for further evaluation and medical management. 09/06/25: patient seen in ICU. Patient is intubated, on Levophed o, off sedation. Head CT showed diffuse cerebral and cerebellar edema due to anoxic brain injury. neurology following, neurology stated poor prognosis. Kidney functions worsening. Patient's family states before admission patient has seizure-like activity, loss of consciousness which was on and off during the whole day. 09/07/25 40-year-old female in the ICU following cardiopulmonary arrest on 09/04/25, now with severe anoxic brain injury. * Intubated, mechanically ventilated * Off all sedation * No spontaneous movements * No response to pain * No brainstem reflexes: absent corneal, cough, gag, oculocephalic reflexes * Pupils 8 mm, fixed, nonreactive * Family updated todaypoor prognosis discussed, but family chooses FULL CODE and wants everything done Overnight: * Urine output 250 mL total/ 0.15ML/KG/HR * Sams in place, urine [id number] annia * Tube feeds restarted, residuals 15 mL, tolerated * Small bowel movement today * Yamileth-care and sacral wound care performed EEG completed at bedside today for assessment of anoxic injury. Hemodynamics: * On norepinephrine drip for shock Respiratory: * Lungs clear except mild right basal infiltrates Consults: Neurology and Nephrology actively following. 09/08/25 The patient remains critically ill, intubated, mechanically ventilated, and off all sedation since 09/05. Overnight and through today, there continues to be no neurologic improvement. * Mental status unchanged and remains unresponsive/comatose * EEG yesterday inconclusive. Neurology now ordering brain perfusion scan today for brain evaluation * On norepinephrine drip, titrated 8 - 4 mcg/min * CXR today: no major change, persistent bilateral mixed pulmonary opacities and probable small pleural effusions * Oliguria continues * Urine output overnight: 100 mL * Total UO last 24h: 200 mL * Nephrology discontinued Lasix 80 mg BID * Lasix drip started * IR consulted for tunneled dialysis catheter placed today * Plan for hemodialysis/EDGE BLACKER likely tomorrow Patient remains in critical multiorgan dysfunction with severe irreversible anoxic brain injury, worsening renal failure requiring EDGE BLACKER preparation, hemodynamic instability requiring vasopressors, and persistent respiratory failure on the ventilator. No neurologic recovery. Full code per family request. 09/09/25 The patient remains critically ill, intubated, mechanically ventilated, and off all sedation since 09/05. Overnight and through today, there continues to be no neurologic improvement. * Mental status unchanged and remains unresponsive/comatose * EEG yesterday inconclusive . Neurology now ordering brain perfusion scan today for brain evaluation * Oliguria continues * IR consulted tunneled dialysis catheter today * Plan for hemodialysis/EDGE BLACKER likely tomorrow, patient developed b/l upper extremity rash near the right elbow and left antecubital fossa. Patient remains in critical multiorgan dysfunction with severe irreversible anoxic brain injury, worsening renal failure requiring EDGE BLACKER preparation, hemodynamic instability requiring vasopressors, and persistent respiratory failure on the ventilator. No neurologic recovery.Full code per family request. 09/10/25 he patient continues to remain critically ill, unresponsive, mechanically ventilated, off all sedation, with severe anoxic brain injury and no signs of neurologic recovery. Family continues to request FULL CODE and continuation of all aggressive medical care. * Urine output: 0.16 mL/kg/hr (severely oliguric) * Yesterday: Hemodialysis with 700 mL ultrafiltration * Today: Plan for 11.5 L ultrafiltration * Tunneled right IJ permacath placed 09/09 * Lasix drip discontinued * Creatinine 5.9 (improving from 7.58) * Iron studies: * Iron 11 (low),TIBC 204 (low),Saturation 5.4% (severely low),Ferritin 132 * EEG: Severe diffuse cerebral dysfunction consistent with severe hypoxic metabolic encephalopathy * Poor prognosis confirmed by neurology * Brain perfusion nuclear scan scheduled today/tomorrow for brain evaluation * Diffuse purpuric rash spreading over upper extremities and lower extremities * Ecchymosis + petechiae + non-blanching lesions * Rash progression after Unasyn possible beta-lactam hypersensitivity * Unasyn discontinued today * Doxycycline started 09/11/25 The patient was examined at bedside this morning. She remains critically ill, mechanically ventilated, unresponsive, and off all sedation. Today's major update is the nuclear brain perfusion scan showing complete absence of intracranial perfusion with hot-nose sign, radiologically consistent with BRAIN , pending final neurologic confirmation. Family was updated about the extremely poor prognosis; however, they insist on FULL CODE and full aggressive care. * When repositioned, HR drops into 30s returned to baseline after stabilization * SpO2: 98% on FiO2 30% * No fever * Urine output: 0.05 mL/kg/hr (severe oliguria) * HD yesterday removed 1.5 L UF * HD planned again tomorrow 09/12/25 The patient was evaluated at bedside today. She remains intubated, mechanically ventilated, and entirely unresponsive with no sedation on board. Neurology officially confirmed BRAIN today based on: * Absent brainstem reflexes * No spontaneous respiration * Nuclear medicine brain perfusion scan showing complete absence of intracranial perfusion * Clinical brain examination performed and documented This was explained thoroughly to the family. Despite clear communication, the family continues to request FULL CODE status and all aggressive measures, including long-term life support and LTAC placement. A social science professor/Case Management consult has been placed for LTAC disposition per family request. 09/13/2025 The patient was evaluated today in the ICU. She remains intubated, mechanically ventilated, on Levophed, and unresponsive with no sedation. She is afebrile, normocardic, and with MAP maintained on pressors. Labs today showed drop in Hb to 6.9, for which 1 unit of PRBC was transfused. Creatinine and BUN continue to increase, for which she was dialyzed today. Stool sample were also to evaluate any possible bleeding. Brain has been declared by neurology, family wishes for her to remain FULL CODE at this time. Per Engineer Specialist, the patient does not qualify for LTAC placement at this time. We will continue to monitor. 09/14/25 The patient was evaluated at bedside today. She remains intubated and mechanically ventilated, without sedation, unresponsive, and with previously confirmed brain (absent brain perfusion, absent brainstem reflexes, nuclear perfusion scan positive for brain ). She continues to exhibit no neurologic function. Family met at bedside today. The irreversible prognosis and confirmed brain status were reviewed again. Family is currently discussing goals of care but for now insists the patient remain FULL CODE with continued aggressive care, including ongoing mechanical ventilation and dialysis as needed. Overnight Interval Events Hemoglobin dropped to 6.6 1 unit PRBC transfused post-transfusion Hgb 8.7 Dialysis removed 2 L Rash continues to improve No major ventilatory changes Hemodynamics fluctuating but stable with vasopressors 09/15/25 The patient was evaluated at bedside today. She remains intubated, mechanically ventilated, unresponsive without sedation. Neurologically, she continues to exhibit no cerebral or brainstem activity, consistent with previously documented brain on nuclear medicine perfusion study. Important new finding today: Despite clinical brain , the patient demonstrates spinal reflex activity, including: * Muscle twitching in upper extremities * Brief fast fasciculatory movements upon touch * Reflexive limb motion during turning and repositioning These findings are consistent with spinal reflex arcs, not cortical activity, and do not contradict brain physiology. Family has not yet decided regarding withdrawal of care and continues to insist on full aggressive measures. A second neurologist is scheduled for repeat confirmatory brain- exam today. Hemodialysis ongoing, with UF goal 1 L. Rash that developed after Unasyn is improving.Thrombocytopenia worsened (platelets 23,000). Hemoglobin dropped again. 09/16/25 The patient was evaluated at bedside today. She remains intubated, mechanically ventilated, and completely unresponsive without sedation. Her neurologic status continues to show no meaningful clinical neurologic function, however spinal reflex activity (muscle twitching on touch and during repositioning) persists, consistent with spinal cordmediated reflexes, not brain activity. A second neurologist completed a full clinical examination yesterday including cold caloric testing, corneal reflex, gag, cough reflex, pain response, and oculovestibular function: * Some isolated spinal reflex muscle activity was noted * Neurologist conclusion: * Does NOT meet full clinical criteria for brain because minimal brainstem reflex activity was detected * However, overall exam consistent with irreversible catastrophic anoxic brain injury * Radiologic findings remain consistent with brain pattern * Prognosis: extremely poor, essentially non-survivable anoxic injury Family was updated at bedside. They are considering terminal weaning, but request more time and have decided for now to continue FULL CODE, FULL AGGRESSIVE CARE. Patient continues on mechanical ventilation, dialysis-dependent KIMI,and poor neurologic prognosis. 09/17/25 The patient was evaluated at bedside today. She remains intubated, mechanically ventilated, profoundly unresponsive, and off all sedation. Her neurologic status is unchanged , consistent with irreversible catastrophic anoxic brain injury, although she does not meet full clinical criteria for formal brain (as per second neurologist evaluation). She continues to demonstrate intermittent spinal reflex activity (muscle twitching with touch or turning), consistent with spinal cordmediated reflexes. The family continues to deliberate regarding terminal weaning. They have not yet decided on the timing and request additional time. Until a final decision is made, they request FULL CODE and full aggressive support. No new acute events overnight. Hemodynamics remain supported with norepinephrine drip, titrated to maintain SPP > 90 mmHg per updated neuro-critical care plan. The patient is scheduled for hemodialysis today, with UF per nephrology recommendations. No other major changes in clinical condition. 09/18/25 The patient underwent hemodialysis yesterday, with 1.9 liters removed, and tolerated the procedure without acute complications. She remains on norepinephrine (LEVOPHED) infusion 58 mcg/min with blood pressures fluctuating between 116/65 and 90/57 mmHg. Repeat chest X-ray today shows increased interstitial prominence, raising concern for mild pulmonary congestion vs early interstitial edema. Most importantly, after multiple family meetings and extensive discussion with neurology and , the family has decided on terminal weaning tomorrow at 11:00 AM. Full supportive measures and full code status will be continued until the time of terminal weaning. 09/19/25: Patient seen and examined at bedside, had a long family discussion today, patient who is her POA was absent due to work, patient's family was determined and willing after her father coming from [place], 09/20/25 The patient underwent hemodialysis yesterday (09/19/25) with 1.0 L ultrafiltration removed, resulting in improvement in BUN (48 improved), creatinine (3.49 from 4.49), and potassium correction (5.4 - 4.2). She continues on norepinephrine (Levo) at 4 mcg/min for blood pressure support. No acute distress noted. Family meeting conducted today the patients family wishes to proceed with terminal weaning next week once the patients father arrives from [place]. Until then, they request continuation of full aggressive care with full code status. Doxycycline discontinued today as the full antibiotic course has been completed. No new overnight events. 09/21/25 Family states they are still waiting for the patients father to arrive from [place] before deciding on terminal weaning with comfort-focused care. Until then, they request continuation of full code and full aggressive management. Todays labs show worsening azotemia (BUN 64, Cr 4.41), hypernatremia (Na 147) likely from insensible losses and decreased free water intake, anemia with Hgb 8.4, thrombocytosis (platelets 566K), and ABG showing respiratory alkalosis with metabolic alkalosis compensation. Hemodialysis is scheduled for tomorrow per nephrology. Loop diuretics resumed. Tube feeding switched to Nepro formula. Free water boluses q4h through G-tube started. PTH level ordered. Respiratory secretions mild. Vent settings changed: respiratory rate decreased from 15 - 14. No acute overnight events. 09/22/25 Family has not yet finalized decision regarding terminal weaning. They request another [id number] meeting today. * On norepinephrine 46 mcg/min, titrated to maintain SPP > 90 and MAP > 65 Hypernatremia: * Sodium remained elevated at [address] at 153 * Tube-feed free water discontinued. * D5W infusion started at 100 mL/hr for controlled serum sodium reduction. * Strict I/O monitoring in place. 09/23/25 Patient was examined at bedside today. She remains unresponsive, intubated, mechanically ventilated, off all sedation, with no purposeful movements. Prior spinal reflex/twitching may still be present but no new neurologic activity is reported. Hemodynamics remain relatively stable on current ICU support. No reported fevers. Oxygenation and ventilation are stable on unchanged ventilator settings. Langston interval changes today: * Na improved to 142 (from 153 previously) * BUN 45, Cr 3.13 (improved from prior higher values) * CXR: Hazy bilateral opacities unchanged from yesterday; consistent with prior pulmonary congestion/infiltrates. Family / Goals of Care: * Family has confirmed they want terminal weaning but have not yet chosen the exact date. * They do NOT want PEG tube or tracheostomy and decline escalation to those procedures. * They want to continue full code and all current ICU-level medical management (including ventilator, pressors, dialysis, nutrition) except PEG and trach, until terminal weaning is performed. No new procedures today. 09/24/25 Family has not reached a final decision regarding terminal weaning and there is no update today regarding timing. They previously expressed intention to proceed with terminal extubation once decision is finalized, and continue FULL CODE status and ongoing life-support until then. 09/25/25: Patient seen and examined at bedside, Family has not reached a final decision regarding terminal weaning and there is no update today , continue full code status for now. No cough or gag reflex, patient has some decorticate movement. Patient has poor likelihood meaningful recovery, high likelihood demise. 09/26/25: Patient seen and examined at bedside, Family has not reached a final decision regarding terminal weaning and there is no update today , continue full code status for now. No cough or gag reflex, patient has some decorticate movement. Patient has poor likelihood meaningful recovery, high likelihood demise. 09/27/2025: Patient seen in the ICU. She is intubated, not on any sedation, mechanically ventilated, on Levophed. Per nurse, calcium was 13 this morning for which dose of Bumex was given. Labs were significant for elevated WBCs, renal function was mildly improved she is pending dialysis tomorrow, LFTs continue to worsen. Per nurse, greenish-yellow sputum found in the ET tube, sputum culture has been ordered. Family has not reached a final decision regarding terminal weaning at this time. 09/28/25 Patient seen at bedside today. She remains ventilator-dependent, unresponsive, no purposeful activity, consistent with persistent irreversible anoxic brain injury. No sedation used. Vital signs fluctuating but overall hemodynamically stable. Mild tachycardia noted. CBC shows WBC 13 (mild leukocytosis), anemia Hgb 9.2, thrombocytosis 544. CMP notable for hypercalcemia 13.9 (likely immobilization-related); nephrology evaluating, ongoing D5W at 60 mL/hr. Sodium 146, stable. Albumin remains low. AST 897 / ALT 435 / ALP 360 markedly elevated, likely shock/hepatic injury pattern. CXR shows bilateral patchy opacities, unchanged. Family remains aware of prognosis and continues full code, but terminal withdrawal timeline not finalized. 09/29/25 Patient examined at bedside today. She remains ventilator-dependent, unresponsive, without purposeful neurological activity. No sedation administered. Spontaneous spinal reflex/twitch responses persist. Clinical status overall unchanged, however ABG shows new respiratory acidosis with CO2 retention (pH 7.29 / pCO2 54.8) therefore ventilator rate increased from 20 - 22 CXR demonstrates bilateral lower lobe airspace disease + small right pleural effusion. Electrolytes notable for hypercalcemia 13.7, ESRD with worsening BUN 90 / Cr 4.64, and anemia remains stable. Sputum culture rare budding yeast noted likely colonization. Family has confirmed terminal weaning scheduled Sunday 12 PM this week, no PEG, no trach, until then FULL SUPPORT continued. Clinical summary today: New respiratory acidosis vent settings adjusted Hypercalcemia persistent management continued Hemodialysis scheduled for today Terminal withdrawal confirmed for upcoming Sunday at noon 09/30/25 Overnight, no acute events reported. Hemodynamics stable on current support. No fever. The patient remains ventilator-dependent with unchanged ventilator settings and stable oxygenation.. Fluids: D5W discontinued in the setting of improved sodium. Renal: Hemodialysis scheduled for tomorrow (10/01/25) for solute control and fluid balance. Plan of care: Family confirms terminal weaning scheduled Thursday, October 02, 2025 at 12 PM. Until then, patient will continue receiving FULL SUPPORT, excluding PEG or tracheostomy per family wishes. No major clinical deterioration today; overall status remains poor 10/01/25 The patient is scheduled to undergo hemodialysis today as part of ongoing ESRD management. The family has previously agreed and reconfirmed that the patient will undergo terminal weaning tomorrow (10/02/2025 at 12:00 PM). Until that time, the patient will continue to receive full medical support, excluding tracheostomy and PEG placement per family wishes. Brief Gist of Todays Course: * No significant clinical changes * Hemodynamically stable on current support * Ventilator settings unchanged * Hemodialysis scheduled for today * Terminal withdrawal confirmed for tomorrow at noon On October 02, 2025, with explicit consent from the family, terminal weaning was performed in the presence of the spouse and daughters. The patient was transitioned to comfort measures only, and was administered morphine, lorazepam (Ativan), and other comfort-directed medications to ensure adequate symptom control and dignity. The patient peacefully and was pronounced at 12:03 PM. Total time spent in planning and documentation: 40 minutes Case discussed in detail with the attending physician , including the clinical presentation, diagnostic workup, irreversible prognosis, and end-of-life management. Terminal weaning was performed with family consent, and the patient peacefully with family at bedside. Consults/Reason for consult CARDIOLOGY NEPHROLOGY PULM/CRITICAL CARE NEUROLOGY Condition at Discharge: Critical Final Diagnosis/Problems List Catastrophic, irreversible, severe anoxic brain injury; extremely poor prognosis POA Metabolic encephalopathy (secondary to anoxic injury), POA * Imaging consistent with brain * Clinical exam does NOT meet full brain- criteria (minimal brainstem reflex activity) * Spinal reflexes present * Prognosis: terminal History of anxiety Questionable Seizure like activity RULED OUT Postcardiac arrest state (VF arrest - ROSC), POA Mixed cardiogenic + septic shock on norepinephrine, POA heart failure with reduced ejection fraction LV EF IS 40% likely post cardiac arrest, poa Dyslipidemia, POA Non ST-elevation myocardial infarction likely type 2 status post cardiac arrest VS NSTEMI Type 1 could not rule out due to intubation status, POA Ventricular fibrillation arrest with defibrillation at 100J. Suspected PE with RV failure and PAH, could not rule out PE due to intubation status #Acute hypoxic respiratory failure requiring mechanical ventilation, POA Respiratory Acidosis secondary to CO2 retention #MSSA / possible aspiration pneumonia, POA Bilateral Pulmonary Infiltrates + R Pleural Effusion Microcytic anemia , POA severe anemia requiring blood transfusion coagulopathy likely due to sepsis Thrombocytopenia (Plt 124), resolved * KIMI stage 3 on solitary kidney due to VMN , from ATN (baseline not available), due to cardiac arrest requiring hemodialysis hyperkalemia, CORRECTED Hypercalcemia hypernatremia improved metabolic acidosis due to sepsis respiratory alkalosis, Improved hypomagnesemia, improved # complicated urinary tract infection resolved # Punctate nonobstructing right renal calculi. # Left nephrectomy. Shock liver (AST/ALT markedly elevated) Stage 1 sacral ulcer Pencillin hypersensitivity improving Conjunctival injection, swollen eyelids Discharge Disposition: at Hospital Discharge Instruct/Medications Scheduled Acetaminophen W/ Codeine (Tylenol W/Cod #3), 1 TAB PO QIDP Hydrocodone-Acetaminophen (Hydrocodone Bitartrate/AC 5-325 mg), 1 TAB PO TID Hydrocodone-Acetaminophen (Hydrocodone Bitartrate/AC 10-325 mg), 1 TAB PO BID Ibuprofen (Ibuprofen), 1 TAB PO TID Scheduled PRN Cyclobenzaprine Hcl (Cyclobenzaprine Hcl), 1 TAB PO QPM PRN Miscellaneous Medications Multivit-Min W/Fe-Fa (Mynatal), (Reported) Discharge Statement: "Patient was advised to return to the ER or call 911 if any headaches, dizziness, shortness of breath, chest pain, abdominal pain, bleeding, fevers, or worsening of medical condition. Patient was counseled about treatment plan, medications, possible side effects, patientverbalized understanding. All questions were answered to the best of my ability. This discharge took greater then 30 minutes in planning, reviewing documentation, counseling the patient, and discussing with other team members." ASSESSMENT ASSESSMENT Hospital Course The patient is a 40-year-old female with past medical history of anxiety, UTIs, and kidney stones who presented to [facility] ED for evaluation of cardiac arrest. As reported by EMS/family, patient had cardiac arrest, was asystole 1238 a.m., CPR initiated by family. Patient was initially anxious but was not having any complaints like chest pain or shortness of breath. EMS were on the scene within 5 minutes, CPR continued, patient was given IV fluid, epinephrine x2, became VFib so patient was shocked at 100 joules, Narcan given, became asystole again upon arrival at ER at 0108 hours, blood sugar upon arrival was 43, ROSC obtained at 0112 a.m. Family also reports that patient was depressed for the past 5 years, she has been staying in bed with decreased oral intake, had a fall injury in April resulting in arm and hip fracture. They denied any other significant past medical history. Patient was seen and evaluated in the ED, laboratory data shows WBC 8.8, hemoglobin 6.4, hematocrit 25.0, platelets 260, sodium 151, potassium 6.3, BUN 29, creatinine 2.52, GFR 24, glucose 146, anion gap 28.001, calcium 7.9, lactic acid 21.1 trending down to 15.2, magnesium 4.1, AST 2482, ALT 1430, troponin 2769, BNP 8.48, lipase 31, protein 4.8, albumin 2.7, blood pressure 151/22 trending up to 107/30, heart rate 106, temperature 94.2 F, O2 saturation 97% on ventilator. Head CT showed no acute intracranial abnormality. Patient was started on IV antibiotic regimen vancomycin, please see medication orders section in the computer. On my assessment, patient remains fully intubated, no diaphoresis, no diarrhea, vomiting, no fever. Patient was admitted for further evaluation and medical management. past surgical history; family denies family history: noncontributory past social history: patient lives with the family, denies any smoking, alcohol, drug use 09/06/25: patient seen in ICU. Patient is intubated, on Levophed o, off sedation. Head CT showed diffuse cerebral and cerebellar edema due to anoxic brain injury. neurology following, neurology stated poor prognosis. Kidney functions worsening. Patient's family states before admission patient has seizure-like activity, loss of consciousness which was on and off during the whole day. 09/07/25 40-year-old female in the ICU following cardiopulmonary arrest on 09/04/25, now with severe anoxic brain injury. * Intubated, mechanically ventilated * Off all sedation * No spontaneous movements * No response to pain * No brainstem reflexes: absent corneal, cough, gag, oculocephalic reflexes * Pupils 8 mm, fixed, nonreactive * Family updated todaypoor prognosis discussed, but family chooses FULL CODE and wants everything done Overnight: * Urine output 250 mL total/ 0.15ML/KG/HR * Sams in place, urine [id number] annia * Tube feeds restarted, residuals 15 mL, tolerated * Small bowel movement today * Yamileth-care and sacral wound care performed EEG completed at bedside today for assessment of anoxic injury. Hemodynamics: * On norepinephrine drip for shock Respiratory: * Lungs clear except mild right basal infiltrates Consults: Neurology and Nephrology actively following. 09/08/25 The patient remains critically ill, intubated, mechanically ventilated, and off all sedation since 09/05. Overnight and through today, there continues to be no neurologic improvement. * Mental status unchanged and remains unresponsive/comatose * EEG yesterday inconclusive. Neurology now ordering brain perfusion scan today for brain evaluation * On norepinephrine drip, titrated 8 - 4 mcg/min * CXR today: no major change, persistent bilateral mixed pulmonary opacities and probable small pleural effusions * Oliguria continues * Urine output overnight: 100 mL * Total UO last 24h: 200 mL * Nephrology discontinued Lasix 80 mg BID * Lasix drip started * IR consulted for tunneled dialysis catheter placed today * Plan for hemodialysis/EDGE BLACKER likely tomorrow Patient remains in critical multiorgan dysfunction with severe irreversible anoxic brain injury, worsening renal failure requiring EDGE BLACKER preparation, hemodynamic instability requiring vasopressors, and persistent respiratory failure on the ventilator. No neurologic recovery. Full code per family request. 09/09/25 The patient remains critically ill, intubated, mechanically ventilated, and off all sedation since 09/05. Overnight and through today, there continues to be no neurologic improvement. * Mental status unchanged and remains unresponsive/comatose * EEG yesterday inconclusive . Neurology now ordering brain perfusion scan today for brain evaluation * Oliguria continues * IR consulted tunneled dialysis catheter today * Plan for hemodialysis/EDGE BLACKER likely tomorrow, patient developed b/l upper extremity rash near the right elbow and left antecubital fossa. Patient remains in critical multiorgan dysfunction with severe irreversible anoxic brain injury, worsening renal failure requiring EDGE BLACKER preparation, hemodynamic instability requiring vasopressors, and persistent respiratory failure on the ventilator. No neurologic recovery.Full code per family request. 09/10/25 he patient continues to remain critically ill, unresponsive, mechanically ventilated, off all sedation, with severe anoxic brain injury and no signs of neurologic recovery. Family continues to request FULL CODE and continuation of all aggressive medical care. * Urine output: 0.16 mL/kg/hr (severely oliguric) * Yesterday: Hemodialysis with 700 mL ultrafiltration * Today: Plan for 11.5 L ultrafiltration * Tunneled right IJ permacath placed 09/09 * Lasix drip discontinued * Creatinine 5.9 (improving from 7.58) * Iron studies: * Iron 11 (low),TIBC 204 (low),Saturation 5.4% (severely low),Ferritin 132 * EEG: Severe diffuse cerebral dysfunction consistent with severe hypoxic metabolic encephalopathy * Poor prognosis confirmed by neurology * Brain perfusion nuclear scan scheduled today/tomorrow for brain evaluation * Diffuse purpuric rash spreading over upper extremities and lower extremities * Ecchymosis + petechiae + non-blanching lesions * Rash progression after Unasyn possible beta-lactam hypersensitivity * Unasyn discontinued today * Doxycycline started 09/11/25 The patient was examined at bedside this morning. She remains critically ill, mechanically ventilated, unresponsive, and off all sedation. Today's major update is the nuclear brain perfusion scan showing complete absence of intracranial perfusion with hot-nose sign, radiologically consistent with BRAIN , pending final neurologic confirmation. Family was updated about the extremely poor prognosis; however, they insist on FULL CODE and full aggressive care. * When repositioned, HR drops into 30s returned to baseline after stabilization * SpO2: 98% on FiO2 30% * No fever * Urine output: 0.05 mL/kg/hr (severe oliguria) * HD yesterday removed 1.5 L UF * HD planned again tomorrow 09/12/25 The patient was evaluated at bedside today. She remains intubated, mechanically ventilated, and entirely unresponsive with no sedation on board. Neurology officially confirmed BRAIN today based on: * Absent brainstem reflexes * No spontaneous respiration * Nuclear medicine brain perfusion scan showing complete absence of intracranial perfusion * Clinical brain examination performed and documented This was explained thoroughly to the family. Despite clear communication, the family continues to request FULL CODE status and all aggressive measures, including long-term life support and LTAC placement. A social science professor/Case Management consult has been placed for LTAC disposition per family request. 09/13/2025 The patient was evaluated today in the ICU. She remains intubated, mechanically ventilated, on Levophed, and unresponsive with no sedation. She is afebrile, normocardic, and with MAP maintained on pressors. Labs today showed drop in Hb to 6.9, for which 1 unit of PRBC was transfused. Creatinine and BUN continue to increase, for which she was dialyzed today. Stool sample were also to evaluate any possible bleeding. Brain has been declared by neurology, family wishes for her to remain FULL CODE at this time. Per Engineer Specialist, the patient does not qualify for LTAC placement at this time. We will continue to monitor. 09/14/25 The patient was evaluated at bedside today. She remains intubated and mechanically ventilated, without sedation, unresponsive, and with previously confirmed brain (absent brain perfusion, absent brainstem reflexes, nuclear perfusion scan positive for brain ). She continues to exhibit no neurologic function. Family met at bedside today. The irreversible prognosis and confirmed brain status were reviewed again. Family is currently discussing goals of care but for now insists the patient remain FULL CODE with continued aggressive care, including ongoing mechanical ventilation and dialysis as needed. Overnight Interval Events Hemoglobin dropped to 6.6 1 unit PRBC transfused post-transfusion Hgb 8.7 Dialysis removed 2 L Rash continues to improve No major ventilatory changes Hemodynamics fluctuating but stable with vasopressors 09/15/25 The patient was evaluated at bedside today. She remains intubated, mechanically ventilated, unresponsive without sedation. Neurologically, she continues to exhibit no cerebral or brainstem activity, consistent with previously documented brain on nuclear medicine perfusion study. Important new finding today: Despite clinical brain , the patient demonstrates spinal reflex activity, including: * Muscle twitching in upper extremities * Brief fast fasciculatory movements upon touch * Reflexive limb motion during turning and repositioning These findings are consistent with spinal reflex arcs, not cortical activity, and do not contradict brain physiology. Family has not yet decided regarding withdrawal of care and continues to insist on full aggressive measures. A second neurologist is scheduled for repeat confirmatory brain- exam today. Hemodialysis ongoing, with UF goal 1 L. Rash that developed after Unasyn is improving.Thrombocytopenia worsened (platelets 23,000). Hemoglobin dropped again. 09/16/25 The patient was evaluated at bedside today. She remains intubated, mechanically ventilated, and completely unresponsive without sedation. Her neurologic status continues to show no meaningful clinical neurologic function, however spinal reflex activity (muscle twitching on touch and during repositioning) persists, consistent with spinal cordmediated reflexes, not brain activity. A second neurologist completed a full clinical examination yesterday including cold caloric testing, corneal reflex, gag, cough reflex, pain response, and oculovestibular function: * Some isolated spinal reflex muscle activity was noted * Neurologist conclusion: * Does NOT meet full clinical criteria for brain because minimal brainstem reflex activity was detected * However, overall exam consistent with irreversible catastrophic anoxic brain injury * Radiologic findings remain consistent with brain pattern * Prognosis: extremely poor, essentially non-survivable anoxic injury Family was updated at bedside. They are considering terminal weaning, but request more time and have decided for now to continue FULL CODE, FULL AGGRESSIVE CARE. Patient continues on mechanical ventilation, dialysis-dependent KIMI,and poor neurologic prognosis. 09/17/25 The patient was evaluated at bedside today. She remains intubated, mechanically ventilated, profoundly unresponsive, and off all sedation. Her neurologic status is unchanged , consistent with irreversible catastrophic anoxic brain injury, although she does not meet full clinical criteria for formal brain (as per second neurologist evaluation). She continues to demonstrate intermittent spinal reflex activity (muscle twitching with touch or turning), consistent with spinal cordmediated reflexes. The family continues to deliberate regarding terminal weaning. They have not yet decided on the timing and request additional time. Until a final decision is made, they request FULL CODE and full aggressive support. No new acute events overnight. Hemodynamics remain supported with norepinephrine drip, titrated to maintain SPP > 90 mmHg per updated neuro-critical care plan. The patient is scheduled for hemodialysis today, with UF per nephrology recommendations. No other major changes in clinical condition. 09/18/25 The patient underwent hemodialysis yesterday, with 1.9 liters removed, and tolerated the procedure without acute complications. She remains on norepinephrine (LEVOPHED) infusion 58 mcg/min with blood pressures fluctuating between 116/65 and 90/57 mmHg. Repeat chest X-ray today shows increased interstitial prominence, raising concern for mild pulmonary congestion vs early interstitial edema. Most importantly, after multiple family meetings and extensive discussion with neurology and , the family has decided on terminal weaning tomorrow at 11:00 AM. Full supportive measures and full code status will be continued until the time of terminal weaning. 09/19/25: Patient seen and examined at bedside, had a long family discussion today, patient who is her POA was absent due to work, patient's family was determined and willing after her father coming from [place], 09/20/25 The patient underwent hemodialysis yesterday (09/19/25) with 1.0 L ultrafiltration removed, resulting in improvement in BUN (48 improved), creatinine (3.49 from 4.49), and potassium correction (5.4 - 4.2). She continues on norepinephrine (Levo) at 4 mcg/min for blood pressure support. No acute distress noted. Family meeting conducted today the patients family wishes to proceed with terminal weaning next week once the patients father arrives from [place]. Until then, they request continuation of full aggressive care with full code status. Doxycycline discontinued today as the full antibiotic course has been completed. No new overnight events. 09/21/25 Family states they are still waiting for the patients father to arrive from [place] before deciding on terminal weaning with comfort-focused care. Until then, they request continuation of full code and full aggressive management. Todays labs show worsening azotemia (BUN 64, Cr 4.41), hypernatremia (Na 147) likely from insensible losses and decreased free water intake, anemia with Hgb 8.4, thrombocytosis (platelets 566K), and ABG showing respiratory alkalosis with metabolic alkalosis compensation. Hemodialysis is scheduled for tomorrow per nephrology. Loop diuretics resumed. Tube feeding switched to Nepro formula. Free water boluses q4h through G-tube started. PTH level ordered. Respiratory secretions mild. Vent settings changed: respiratory rate decreased from 15 - 14. No acute overnight events. 09/22/25 Family has not yet finalized decision regarding terminal weaning. They request another [id number] meeting today. * On norepinephrine 46 mcg/min, titrated to maintain SPP > 90 and MAP > 65 Hypernatremia: * Sodium remained elevated at [address] at 153 * Tube-feed free water discontinued. * D5W infusion started at 100 mL/hr for controlled serum sodium reduction. * Strict I/O monitoring in place. 09/23/25 Patient was examined at bedside today. She remains unresponsive, intubated, mechanically ventilated, off all sedation, with no purposeful movements. Prior spinal reflex/twitching may still be present but no new neurologic activity is reported. Hemodynamics remain relatively stable on current ICU support. No reported fevers. Oxygenation and ventilation are stable on unchanged ventilator settings. Langston interval changes today: * Na improved to 142 (from 153 previously) * BUN 45, Cr 3.13 (improved from prior higher values) * CXR: Hazy bilateral opacities unchanged from yesterday; consistent with prior pulmonary congestion/infiltrates. Family / Goals of Care: * Family has confirmed they want terminal weaning but have not yet chosen the exact date. * They do NOT want PEG tube or tracheostomy and decline escalation to those procedures. * They want to continue full code and all current ICU-level medical management (including ventilator, pressors, dialysis, nutrition) except PEG and trach, until terminal weaning is performed. No new procedures today. 09/24/25 Family has not reached a final decision regarding terminal weaning and there is no update today regarding timing. They previously expressed intention to proceed with terminal extubation once decision is finalized, and continue FULL CODE status and ongoing life-support until then. 09/25/25: Patient seen and examined at bedside, Family has not reached a final decision regarding terminal weaning and there is no update today , continue full code status for now. No cough or gag reflex, patient has some decorticate movement. Patient has poor likelihood meaningful recovery, high likelihood demise. 09/26/25: Patient seen and examined at bedside, Family has not reached a final decision regarding terminal weaning and there is no update today , continue full code status for now. No cough or gag reflex, patient has some decorticate movement. Patient has poor likelihood meaningful recovery, high likelihood demise. 09/27/2025: Patient seen in the ICU. She is intubated, not on any sedation, mechanically ventilated, on Levophed. Per nurse, calcium was 13 this morning for which dose of Bumex was given. Labs were significant for elevated WBCs, renal function was mildly improved she is pending dialysis tomorrow, LFTs continue to worsen. Per nurse, greenish-yellow sputum found in the ET tube, sputum culture has been ordered. Family has not reached a final decision regarding terminal weaning at this time. 09/28/25 Patient seen at bedside today. She remains ventilator-dependent, unresponsive, no purposeful activity, consistent with persistent irreversible anoxic brain injury. No sedation used. Vital signs fluctuating but overall hemodynamically stable. Mild tachycardia noted. CBC shows WBC 13 (mild leukocytosis), anemia Hgb 9.2, thrombocytosis 544. CMP notable for hypercalcemia 13.9 (likely immobilization-related); nephrology evaluating, ongoing D5W at 60 mL/hr. Sodium 146, stable. Albumin remains low. AST 897 / ALT 435 / ALP 360 markedly elevated, likely shock/hepatic injury pattern. CXR shows bilateral patchy opacities, unchanged. Family remains aware of prognosis and continues full code, but terminal withdrawal timeline not finalized. 09/29/25 Patient examined at bedside today. She remains ventilator-dependent, unresponsive, without purposeful neurological activity. No sedation administered. Spontaneous spinal reflex/twitch responses persist. Clinical status overall unchanged, however ABG shows new respiratory acidosis with CO2 retention (pH 7.29 / pCO2 54.8) therefore ventilator rate increased from 20 - 22 CXR demonstrates bilateral lower lobe airspace disease + small right pleural effusion. Electrolytes notable for hypercalcemia 13.7, ESRD with worsening BUN 90 / Cr 4.64, and anemia remains stable. Sputum culture rare budding yeast noted likely colonization. Family has confirmed terminal weaning scheduled Sunday 12 PM this week, no PEG, no trach, until then FULL SUPPORT continued. Clinical summary today: New respiratory acidosis vent settings adjusted Hypercalcemia persistent management continued Hemodialysis scheduled for today Terminal withdrawal confirmed for upcoming Sunday at noon 09/30/25 Overnight, no acute events reported. Hemodynamics stable on current support. No fever. The patient remains ventilator-dependent with unchanged ventilator settings and stable oxygenation.. Fluids: D5W discontinued in the setting of improved sodium. Renal: Hemodialysis scheduled for tomorrow (10/01/25) for solute control and fluid balance. Plan of care: Family confirms terminal weaning scheduled Thursday, October 02, 2025 at 12 PM. Until then, patient will continue receiving FULL SUPPORT, excluding PEG or tracheostomy per family wishes. No major clinical deterioration today; overall status remains poor 10/01/25 The patient is scheduled to undergo hemodialysis today as part of ongoing ESRD management. The family has previously agreed and reconfirmed that the patient will undergo terminal weaning tomorrow (10/02/2025 at 12:00 PM). Until that time, the patient will continue to receive full medical support, excluding tracheostomy and PEG placement per family wishes. Brief Gist of Todays Course: * No significant clinical changes * Hemodynamically stable on current support * Ventilator settings unchanged * Hemodialysis scheduled for today * Terminal withdrawal confirmed for tomorrow at noon On October 02, 2025, with explicit consent from the family, terminal weaning was performed in the presence of the spouse and daughters. The patient was transitioned to comfort measures only, and was administered morphine, lorazepam (Ativan), and other comfort-directed medications to ensure adequate symptom control and dignity. The patient peacefully and was pronounced at 12:03 PM. Assessment Catastrophic, irreversible, severe anoxic brain injury; extremely poor prognosis POA Metabolic encephalopathy (secondary to anoxic injury), POA * Imaging consistent with brain * Clinical exam does NOT meet full brain- criteria (minimal brainstem reflex activity) * Spinal reflexes present * Prognosis: terminal History of anxiety Questionable Seizure like activity RULED OUT Postcardiac arrest state (VF arrest - ROSC), POA Mixed cardiogenic + septic shock on norepinephrine, POA heart failure with reduced ejection fraction LV EF IS 40% likely post cardiac arrest, poa Dyslipidemia, POA Non ST-elevation myocardial infarction likely type 2 status post cardiac arrest VS NSTEMI Type 1 could not rule out due to intubation status, POA Ventricular fibrillation arrest with defibrillation at 100J. Suspected PE with RV failure and PAH, could not rule out PE due to intubation status #Acute hypoxic respiratory failure requiring mechanical ventilation, POA Respiratory Acidosis secondary to CO2 retention #MSSA / possible aspiration pneumonia, POA Bilateral Pulmonary Infiltrates + R Pleural Effusion Microcytic anemia , POA severe anemia requiring blood transfusion coagulopathy likely due to sepsis Thrombocytopenia (Plt 124), resolved * KIMI stage 3 on solitary kidney due to VMN , from ATN (baseline not available), due to cardiac arrest requiring hemodialysis hyperkalemia, CORRECTED Hypercalcemia hypernatremia improved metabolic acidosis due to sepsis respiratory alkalosis, Improved hypomagnesemia, improved # complicated urinary tract infection resolved # Punctate nonobstructing right renal calculi. # Left nephrectomy. Shock liver (AST/ALT markedly elevated) Stage 1 sacral ulcer Pencillin hypersensitivity improving Conjunctival injection, swollen eyelids Visit Coding STANDARD RES Billing Provider: MAXX COOPER MD Date of Service if different f: Oct 02, 2025 FRANCIS PRESSLEY RESIDENT Oct 02, 2025 12:27
--- NOTE | 2025-10-02 22:17 | DVHPN2 ---
Progress Note - Dictate Date Seen: Oct 02, 2025 Has the PT tested + for MRSA If YES, has PT been informed?: No Medical Necessity Reason Pt with a Central, PICC or Fol: Yes The following are medically ne: Central Line, Sams Catheter Subjective Patient was seen and evaluated in follow up in the ICU this morning. Patient was terminally extubated this am. Family is present at bedside. vital signs Vital Sign Date Time Temp Pulse Resp B/P (MAP) Pulse Ox O2 Delivery O2 Flow Rate FiO2 10/02/25 10:25 94 23 105/62 (76) 96 35 10/02/25 10:00 Mechanical Ventilator+ 10/02/25 08:00 99.0 99.0 Total Intake and Output 10/01/25 10/01/25 10/02/25 15:00 23:00 07:00 Intake Total 100 ml 716 ml 50 ml Output Total 1450 ml 1100 ml Balance 100 ml -734 ml -1050 ml medications Current Medications Medications Dose Ordered Sig/Ese Route Start Time Stop Time Status Last Admin Dose Admin Lorazepam 1 mg Q1HP PRN IV 10/02/25 10:15 Morphine Sulfate 2 mg Q1HP PRN IV 10/02/25 10:15 objective GENERAL: Ill appearing, unresponsive. EYES: PERRL, EOMI. Anicteric. HENT: Moist mucous membranes. LUNGS: Decreased breath sounds. CARDIOVASCULAR: Regular rate and rhythm. ABDOMEN: Soft, nontender and nondistended. EXTREMITIES: No edema. SKIN: Warm, dry. laboratory and microbiology Laboratory Tests 09/30/25 03:35 Test 09/30/25 03:35 Range/Units Serum Glucose 122 H 74-106 mg/dL Problem List Cardiopulmonary arrest with ROSC. Ventricular fibrillation arrest with defibrillation at 100J. Non ST-elevation myocardial infarction. Acute anemia status post blood transfusion (-FOBT). Acute hypoxic respiratory failure. Likely KIMI on CKD. Left nephrectomy. Shocked Liver. Dyslipidemia, newly diagnosed. Cerebral and cerebellar edema, anoxic brain injury. ? Suspected PE with RV failure and PAH. Assessment/Plan Continued all current supportive medical care. Comfort measures only. Additional plan as per the hospital course. Critical care time of 45 minutes provided to include time spent evaluation of patient at bedside, when appropriate patient/family education for diagnosis, treatment plan, review of pertinent medical information and discussion of care with specialty providers and PCP. Dietary Evaluation Review Comments: 1. nepro 35/hr providing 68g pro, 1487kcal, 611ml free water, meeting 107% energy needs, 80% protein needs 2. Increase amount of Protein support for wound healing when/if pt's kidney function impvoes. F/U and reassess when pt is off vent and PRN. Expected Outcomes/Goals: Adequate nutrition support for being on mechanical ventilation Plan discussed with: Other CC Plasma Assessment Blood Product Administration S: 06:05 RISHI SOARES MD Oct 02, 2025 12:30
--- NOTE | 2025-10-02 23:57 | DVHPN2 ---
Subjective DOS: 10/02/2025 Patient seen and examined at bedside. Intubated on mechanical ventilator. Overnight events reviewed. Changes from previous H/P or p: No Changes Eyes: No Pain, No Vision change, No Conjunctivae inflammation, No Eyelid inflammation, No Other, No Redness ENT: No Ear pain, No Ear discharge, No Nose pain, No Nose discharge, No Nose congestion, No Mouth pain, No Mouth swelling, No Throat pain, No Throat swelling, No Other Cardiovascular: No Chest Pain, No Palpitations, No Orthopnea, No Paroxysmal Noc. Dyspnea, No Edema, No Lt Headedness; Other (Cardiac arrest) Respiratory: No Cough, No Dry; Shortness of breath; No SOB with excertion, No Wheezing, No Hemoptysis, No Pleuritic Pain, No Sputum; Other (On ventilator) Gastrointestinal: No Nausea, No Vomiting, No Abdominal Pain, No Diarrhea, No Constipation, No Melena, No Hematochezia, No Other Genitourinary: No Dysuria, No Frequency, No Incontinence, No Hematuria, No Retention; Other (Sams catheter in place) Musculoskeletal: No other, No neck pain, No shoulder pain, No arm pain, No back pain, No hand pain, No leg pain, No foot pain Skin: No Rash, No Lesions, No Jaundice, No Bruising, No Other Objective Vitals Vital Signs Date Time Temp Pulse Resp B/P (MAP) Pulse Ox O2 Delivery O2 Flow Rate FiO2 10/02/25 10:25 94 23 105/62 (76) 96 35 10/02/25 10:00 Mechanical Ventilator+ 10/02/25 08:00 99.0 99.0 Intake/Output Intake and Output 10/02/25 07:00 Intake Total 866 ml Output Total 2550 ml Balance -1684 ml IV Total 250 ml Tube Feeding 363 ml Other 253 ml Output Urine Total 2550 ml Exam Gen.: Patient lying in bed in medical ICU. Intubated on mechanical ventilator. Head: Normocephalic, atraumatic. Eyes: PERRLA. Ears: Normal external anatomy. Throat: Endotracheal tube and orogastric tube in place. Neck: Supple, trachea midline. Chest: Transmitted breath sounds bilaterally. Decreased air entry bilaterally. No wheezing. Bibasilar crackles. Cardiovascular: Positive S1, positive S2. Regular rate and rhythm. Abdomen: Positive bowel sounds in all 4 quadrants. Soft, nontender, nondistended. : Sams in place. Normal external genitalia. Rectal: Deferred. Skin: Warm, dry. Intact. Extremities: 2+ radial pulses bilaterally. No lower extremity edema. Neuro: Off sedation, unresponsive. Decorticate movements; no cough/gag. Laboratory Results Laboratory Tests 09/30/25 03:35 Urinalysis Test 09/04/25 03:14 09/04/25 13:46 Urine Color Light-orange (Yellow) Urine Clarity Turbid (Clear) H Urine pH 5.5 (5.0-9.0) Urine Specific [place] 1.015 (1.001-1.035) Urine Protein 2+ (Negative) H Urine Ketones 1+ (Negative) H Urine Blood 3+ /uL (Negative) H Urine Nitrite Negative (Negative) Urine Bilirubin Negative (Negative) Urine Urobilinogen Normal mg/dL (Negative) Urine Leukocyte Esterase Negative /uL (Negative) Urine RBC 281 /hpf (0 - 4) Urine Microscopic WBC 37 /HPF (0-5) H Urine Squamous Epithelial Cells Few /hpf (<5) Urine Calcium Oxalate Crystals Few (None Seen) Urine Bacteria Few /hpf (None Seen) H Urine Hyaline Casts Many /lpf (0 - 2) Urine Mucus Few (None Seen) Urine Glucose Trace mg/dL (Normal) Urine Creatinine 85.45 mg/dL (30.0-125.0) Urine Protein/Creatinine Ratio 5.39 Urine Sodium 52 mmol/L (40-220) Urine Total Protein 460.9 mg/dL (1-14) H Blood Gas Results Test 10/02/25 08:12 Arterial Blood pH 7.358 (7.350-7.450) FiO2 % 35.0 Microbiology Microbiology Date/Time Source Procedure Growth Status 09/27/25 15:00 Trachea Gram Stain - Final Complete 09/27/25 15:00 Respiratory Culture - Final Presumptive Mary Carmen albicans Complete 09/04/25 23:21 Urine - [place] Urine Culture - Final Complete 09/04/25 04:22 Sputum Expectorated Sputum Gram Stain - Final Complete 09/04/25 04:22 Respiratory Culture - Final Staphylococcus aureus Complete 09/04/25 01:40 Blood Blood Culture - Final NO GROWTH AFTER 5 DAYS OF INCUBATION. Complete Assessment/Plan Assessment/Plan Impression: Acute hypoxic respiratory failure On mechanical ventilator Metabolic encephalopathy 2/2 anoxic brain injury S/p cardiac arrest (VF arrest - ROSC) Heart failure with reduced ejection fraction Non ST-elevation myocardial infarction MSSA/aspiration pneumonia Severe anemia requiring blood transfusion Shock liver KIMI stage 3 on solitary kidney Dialysis-dependent renal failure Complicated urinary tract infection Stage 1 sacral ulcer Events: Remains on vent support On AC mode; RR 18, VT 400, PEEP 8, FiO2 30% Remains off sedation, unresponsive Continue antibiotics HD per Nephrology Monitor renal function Monitor electrolytes, supplement as necessary. Tube feeds for nutritional support Patient with decorticate movements; no cough/gag. Neurology second opinion noted. Patient has poor likelihood of meaningful recovery. High likelihood of demise. Note, family agreed for compassionate extubation this morning. Continue supportive care Poor prognosis Labs and imaging reviewed. Rest of plan as noted below. Plan: s/p intubation on mechanical ventilator. On AC mode; RR 18, VT 400, PEEP 8, FiO2 30% Titrate FIO2 to keep O2 saturation above 90%. VAP bundle. Supportive care Poor prognosis Family agreed for compassionate extubation Nuclear brain perfusion scan consistent with brain EEG: Severe diffuse cerebral dysfunction consistent with severe hypoxic metabolic encephalopathy Neurology recommendations appreciated Follow up GI recommendations Cardiology recommendations appreciated. Echocardiogram reviewed: MODERATELY DILATED RV AND IS HYPOKINETIC DYSKINESIS OF IVS RVSP 40 MMHG - ELEVATED STUDY CONFIRMS RV FAILURE GLOBAL LV HYPOKINESIS LVEF IS 40% AND IS REDUCED Pressors for hemodynamic support Titrate to keep mean arterial pressure greater than 65 mmHg. Accu-Cheks, ISS PRN. HD per Nephrology Monitor renal function Monitor electrolytes. Supplement as necessary. Monitor ins and outs. Maintain euvolemia. Wound care. GI prophylaxis. DVT prophylaxis. Prognosis: Poor given patient's multiple co-morbidities. Condition: Critical Rest of plan per hospitalist and other consultants. A total of 35 minutes of critical care time was spent reviewing the patient record, examining the patient, making a diagnostic and therapeutic plan, discussing this plan with the medical personnel, following up on diagnostic studies and following the patient for clinical stability excluding any and all procedures. At least 50% of this time was spent in direct, [id number] contact. Thank you, Dr. Antoine, for allowing me to participate in this patient's care. Further recommendations will depend on the patient's clinical course. Please do not hesitate to contact me if you have any questions or concerns. This medical document was created using an electronic medical record system with [employer] dictation system. Although these documentations are being carefully reviewed, there may still be some phonetic and typographical changes. The errors are purely typographical, due to imperfection on the software program, and do not reflect any compromise in the patient's medical care. Plan discussed with: Other (YANE John) Visit Coding Pulmonary Billing Provider: MAXX COOPER MD Date of Service if different f: Oct 02, 2025 Common Visit Codes: [id number] INP/OBS CARE(HIGH), [id number] CARE 30-74 MIN MAXX COOPER MD Oct 02, 2025 23:57
== END 2025-10-02 16:13 | DRG 720 ==
LOC: EDBD 01:11 → ER 01:11 → OVERFLOW 05:10 → ICU WEST 09:23
PROVIDERS: ADMIT Internal Medicine Pulmonary Disease; ATTEND Internal Medicine Pulmonary Disease
PROC: 30233N1 Transfusion of Nonautologous Red Blood Cells into Peripheral Vein, Percutaneous Approach (ICD-10-PCS; principal; 2025-09-04)
PROC: 5A1955Z Respiratory Ventilation, Greater than 96 Consecutive Hours (ICD-10-PCS; 2025-09-04)
PROC: 0BH17EZ Insertion of Endotracheal Airway into Trachea, Via Natural or Artificial Opening (ICD-10-PCS; 2025-09-04)
PROC: 06HY33Z Insertion of Infusion Device into Lower Vein, Percutaneous Approach (ICD-10-PCS; 2025-09-04)
PROC: 5A12012 Performance of Cardiac Output, Single, Manual (ICD-10-PCS; 2025-09-04)
PROC: 5A1D70Z Performance of Urinary Filtration, Intermittent, Less than 6 Hours Per Day (ICD-10-PCS; 2025-09-09)
PROC: 0JH63XZ Insertion of Tunneled Vascular Access Device into Chest Subcutaneous Tissue and Fascia, Percutaneous Approach (ICD-10-PCS; 2025-09-09)
PROC: 02HV33Z Insertion of Infusion Device into Superior Vena Cava, Percutaneous Approach (ICD-10-PCS; 2025-09-09)
PROC: B5181ZA Fluoroscopy of Superior Vena Cava using Low Osmolar Contrast, Guidance (ICD-10-PCS; 2025-09-09)
PROC: B548ZZA Ultrasonography of Superior Vena Cava, Guidance (ICD-10-PCS; 2025-09-09)
PROC: 5A1D70Z Performance of Urinary Filtration, Intermittent, Less than 6 Hours Per Day (ICD-10-PCS; 2025-09-10)
PROC: 5A1D70Z Performance of Urinary Filtration, Intermittent, Less than 6 Hours Per Day (ICD-10-PCS; 2025-09-13)
PROC: 5A1D70Z Performance of Urinary Filtration, Intermittent, Less than 6 Hours Per Day (ICD-10-PCS; 2025-09-15)
PROC: 5A1D70Z Performance of Urinary Filtration, Intermittent, Less than 6 Hours Per Day (ICD-10-PCS; 2025-09-17)
PROC: 5A1D70Z Performance of Urinary Filtration, Intermittent, Less than 6 Hours Per Day (ICD-10-PCS; 2025-09-19)
PROC: 5A1D70Z Performance of Urinary Filtration, Intermittent, Less than 6 Hours Per Day (ICD-10-PCS; 2025-09-22)
PROC: 5A1D70Z Performance of Urinary Filtration, Intermittent, Less than 6 Hours Per Day (ICD-10-PCS; 2025-09-24)
PROC: 5A1D70Z Performance of Urinary Filtration, Intermittent, Less than 6 Hours Per Day (ICD-10-PCS; 2025-09-26)
DX: A41.9 Sepsis, unspecified organism (principal); K72.00 Acute and subacute hepatic failure without coma; I46.2 Cardiac arrest due to underlying cardiac condition; R57.0 Cardiogenic shock; G93.1 Anoxic brain damage, not elsewhere classified; N17.0 Acute kidney failure with tubular necrosis; G93.6 Cerebral edema; G93.41 Metabolic encephalopathy; J69.0 Pneumonitis due to inhalation of food and vomit; J15.211 Pneumonia due to Methicillin susceptible Staphylococcus aureus; R65.21 Severe sepsis with septic shock; D68.9 Coagulation defect, unspecified; J96.01 Acute respiratory failure with hypoxia; D69.6 Thrombocytopenia, unspecified; I49.01 Ventricular fibrillation; N39.0 Urinary tract infection, site not specified; N18.9 Chronic kidney disease, unspecified; I27.20 Pulmonary hypertension, unspecified; F32.A Depression, unspecified; D50.9 Iron deficiency anemia, unspecified; Z20.822 Contact with and (suspected) exposure to COVID-19; E78.5 Hyperlipidemia, unspecified; E87.0 Hyperosmolality and hypernatremia; E87.5 Hyperkalemia; F41.9 Anxiety disorder, unspecified; I21.A1 Myocardial infarction type 2; I50.20 Unspecified systolic (congestive) heart failure; E87.3 Alkalosis; E83.42 Hypomagnesemia; L98.429 Non-pressure chronic ulcer of back with unspecified severity; E83.52 Hypercalcemia; E83.39 Other disorders of phosphorus metabolism; Z87.442 Personal history of urinary calculi; Z90.5 Acquired absence of kidney; Z88.0 Allergy status to penicillin; E87.4 Mixed disorder of acid-base balance; Z51.5 Encounter for palliative care
CPT/HCPCS: 31500; 36415; 36430; 36556; 36558; 36600; 70450; 71045; 74176; 76775; 76937; 78606; 80048; 80053; 80061; 80074; 80076; 80202; 80307; 80320; 80329; 81001; 82140; 82270; 82306; 82550; 82570; 82728; 82805; 82962; 83010; 83036; 83516; 83520; 83540; 83550; 83605; 83615; 83690; 83735; 83880; 83970; 84100; 84132; 84156; 84295; 84300; 84443; 84484; 85007; 85014; 85018; 85025; 85027; 85384; 85610; 86160; 86225; 86235; 86256; 86850; 86870; 86900; 86901; 86922; 87040; 87070; 87077; 87081; 87086; 87186; 87205; 87426; 87804; 90935; 93005; 93306; 93970; 94002; 94003; 94640; 95819; 96374; 96375; 99152; 99291; C1894; G0378; J0169; J1642; J1756; J1815; J2470; J2704; J3480; J3490; P9047